=== PATIENT | female | born 1970 | race Caucasian/White ===

== ENCOUNTER 2017-03-23 08:37 | Outpatient (RCR) | payer MEDICARE, SELFPAY ==
[2017-03-23 09:32] VITALS: BP 137/86; PULSE 84; RESP 20; TEMP 36.1
--- NOTE | 2017-03-23 09:40 | WC ---
lower backsmall abrasion and scabbed area . pt states will start using hydrogel when arrives per home health nurse ordered
--- NOTE | 2017-03-23 10:33 | PCM.WC.HP ---
(1) Non-healing surgical wound Status: Acute Current Visit: Yes Code(s): T81.89XA - Other complications of procedures, not elsewhere classified, initial encounter Comment: Left Jaw (2) Cellulitis and abscess of neck Status: Chronic Current Visit: No Code(s): L03.221 - Cellulitis of neck; L02.11 - Cutaneous abscess of neck (3) Bahman's angina Status: Chronic Current Visit: No Code(s): K12.2 - Cellulitis and abscess of mouth (4) Tobacco abuse Status: Acute Current Visit: Yes Code(s): Z72.0 - Tobacco use History of Present Illness Date of Service: 03/25/17 Chief Complaint: Non healing Left Jaw Surgical Wound. History of Wound: Ms. Marsh is a 46yo with no significant past medical history who was recently hospitalized due to worsening dental abscess and Bahman's angina. She is status post surgical debridement. During the hospital stay she was on Zosyn and on discharge from the hospital was started on Augmentin. She has been compliant with her medication. She has home health care who comes around to help with her dressing and has been doing wet-to-dry dressing over the wound. Per patient, they have noted some yellowish to greenish drainage ( the amount of which has been gradually reducing) from the site but she denies chills, fever, headaches or otherwise feeling of unwell. In her opinion, the wound size is reducing. Past Medical History Past Medical History: Chronic Problems Cellulitis and abscess of neck (Chronic) Bahman's angina (Chronic) Bipolar disorder (Chronic) Chronic back pain (Chronic) Anxiety (Chronic) Surgical History: cholecystectomy Allergies/Adverse Reactions: Allergies prednisone Adverse Reaction (Verified 03/04/17 09:23) Other Sulfa (Sulfonamide Antibiotics) Adverse Reaction (Verified 03/04/17 09:23) Rash Home Medications: Ambulatory Orders Medication Instructions Recorded Citalopram [Celexa] 40 mg PO DAILY 08/28/16 Esomeprazole Magnesium 40 mg PO DAILY 08/28/16 Aripiprazole [Abilify] 30 mg PO DAILY 12/09/16 Trazodone HCl [Desyrel] 100 - 200 mg PO QHS PRN PRN 03/07/17 Amox/Clavulanate Tablet [Augmentin 875 mg PO Q12H #1 tablet 03/14/17 Tablet] - Family History Maternal No pertinent history Paternal No pertinent history Smoking Status: Heavy Smoker (>10/day) Review of Systems Constitutional: Denies: Chills, Fever, Malaise Eyes: Denies: Blurred vision, Double vision HEENT: Denies: Difficulty Hearing, Head Aches Cardiovascular: Denies: Chest Pain, Claudication, Chest Pressure, Orthopnea Respiratory: Denies: Cough, Hemoptysis, Pleuritic Pain, Shortness of breath upon exertion Gastrointestinal: Denies: Abdominal Pain, Hematemesis Genitourinary: Denies: Frequency, Incontinence - Physical Exam Vital Signs Temp Pulse Resp BP 97 F L 84 20 H 137/86 H 03/23/17 09:32 03/23/17 09:32 03/23/17 09:32 03/23/17 09:32 General: Alert, Oriented x3, Cooperative HEENT: - - Left sided facial wound noted around the jaw line. Oral: Moist Mucosa Neck: Supple, No JVD Lungs: Clear to auscultation, Normal air movement Cardiovascular: Regular rate, Regular Rhythm, Normal S1, Normal S2 Abdomen: Soft, Non Tender Extremities: No cyanosis, No edema Wound Measurements and Assessment - Nurse 1 - General Ulcer Measurement Start: 03/23/17 08:43 Freq: Status: Active Protocol: Activity Type Activity Date Activity User E-Sign Co-Sign Detail Recorded Client Recorded Date Recorded By Document 03/23/17 09:32 RB [id number] 03/23/17 09:41 RB 03/23/17 09:32 Wound Center Nurse 1 [Ulcer Assessment Protocol: BRAEDEN.WD.LOC] #1 Left [place] -Combined with other wound No -Current Size (cm) - Length 2.8 -Current Size (cm) - Width 1 -Current Size (cm) - Depth 0.8 -Total Square Cm 2.8 -Photo Taken Yes -Tunneling No -Undermining/Tunneling No -Circular Undermining No -Classification - Thickness Full Thickness without Exposed Support Structure -Exudate Amt Small (1-33%) -Exudate Type Serosanguineous -Wound Margin Thickened & Rolled Under -Granulation Amt Large (67-100%) -Granulation Quality [place] Red -Necrosis Amt Small (1-33%) -Necrotic Tissue Type Adherent Slough -Structure Exposed N/A -Texture (Radha-wound Skin Appearance) Assessed -Moisture (Radha-wound Skin Appearance Assessed ) -Color (Radha-wound Skin Appearance) Assessed -Temperature (Radha-wound Skin No Abnormality Appearance) (Pt Warm) -Tenderness on Palpation (Radha-wound No Skin Appearance) -Ulcer Cleansing Rinsed/ Irrigated with Saline -Foul Odor after Cleansing No -Anesthetic Used 4% Lidocaine Solution 03/23/17 09:40 Wound Center by Leeanna Henriquez lower backsmall abrasion and scabbed area . pt states will start using hydrogel when arrives per home health nurse ordered Initialized on 03/23/17 09:40 - END OF NOTE WC - Nurse 2 - General Ulcer CM Notes Start: 03/23/17 08:43 Freq: Status: Active Protocol: Activity Type Activity Date Activity User E-Sign Co-Sign Detail Recorded Client Recorded Date Recorded By Document 03/23/17 10:19 DV [id number] 03/23/17 10:27 DV 03/23/17 10:19 Wound Center Nurse 2 [Procedure/Treatment] -Time 10:19 -Correct Patient Yes -Correct Side, Site, Position Yes -Correct Procedure Yes -Procedure Performed Yes -Type of Procedure Debridement -Clinical Debridement Subcutaneous -Post Debridement Size (cm) - Length 0.8 -Post Debridement Size (cm) - Width 2.8 -Post Debridement Size (cm) - Depth 0.8 -Total Square Cm 2.24 -Wound/Ulcer Outcome Not Healed -Ulcer Cleansing Rinsed/ Irrigated with Saline -Foul Odor after Cleansing No -Bioengineered Tissue No -Cetacaine [place] No -Bleeding Controlled with Pressure -Treatment Response Procedure Tolerated Well [See Physician Procedure note for Specifics] Pain Scale: 0-10 Numeric [Pain] -Is Patient Pain Free? Yes Musculoskeletal: No Muscle Wasting Lymphatic: No Cervical, Supraclavicular, or Inguinal Adenopathy Neurological: Cranial nerves II-XII grossly intact Psych/Mental Status: Normal Affect, Alert and oriented to time, place, person, mood and affect Debridement Note Post-Debridement Measurements/Treatment WC - Nurse 2 - General Ulcer CM Notes Start: 03/23/17 08:43 Freq: Status: Active Protocol: Activity Type Activity Date Activity User E-Sign Co-Sign Detail Recorded Client Recorded Date Recorded By Document 03/23/17 10:19 DV [id number] 03/23/17 10:27 DV 03/23/17 10:19 Wound Center Nurse 2 #1 Left [place] -Time 10:19 -Correct Patient Yes -Correct Side, Site, Position Yes -Correct Procedure Yes -Procedure Performed Yes -Type of Procedure Debridement -Clinical Debridement Subcutaneous -Post Debridement Size (cm) - Length 0.8 -Post Debridement Size (cm) - Width 2.8 -Post Debridement Size (cm) - Depth 0.8 -Total Square Cm 2.24 -Wound/Ulcer Outcome Not Healed -Ulcer Cleansing Rinsed/ Irrigated with Saline -Foul Odor after Cleansing No -Bioengineered Tissue No -Cetacaine [place] No -Bleeding Controlled with Pressure -Treatment Response Procedure Tolerated Well Pain Scale: 0-10 Numeric Is Patient Pain Free? Yes Type of Debridement: Excisional debridement Anesthesia Used: 4% Lidocaine Solution Depth: Down to and including healthy tissue, in the subcutaneous layer Percentage of wound debrided: 100 Instrument Used: 5mm curette Tissue Removed: Biofilm,Slough Amount of bleeding with debridement: Mild Bleeding Controlled with: Pressure Patient tolerated procedure well Assessment/Plan Active Problems Non-healing surgical wound (Acute) Left Jaw Tobacco abuse (Acute) Assessment: Left-sided dental abscess and Bahman's angina status post surgical debridement. Slow surgical wound healing. Tobacco abuse Plan: Status post hospital discharge she has been applying wet-to-dry dressing to the wound at home with the help of home health care. However she states that they need help with wound healing and so she was referred here. Labs done in hospital reviewed , grossly unremarkable save for anemia and occasional hyperglycemia. Subsequent blood sugar checks were within normal incuding on the day of discharge. The wound does look generally healthy with moderate biofilm and slough. I debrided the wound today using a 5 mm curette. The procedure was well-tolerated. She has been on Augmentin since discharge from the hospital and has a 10 day course. I will increase this to a 14 day because of the persistent yellowish - greenish drainage she has noted. She however denies any increased tenderness around the site. Apply Aquacel silver daily. Increase protein diet and supplements. I did spend some time counseling patient on the benefits of smoking cessation. She is scheduled to follow-up with her primary care physician on Tuesday and will discuss her options. Follow-up in 1 week. This note was generated with WooWhoation software. It may contain incorrect words, spelling, and punctuation that were not noted in checking the note before signing.
== END 2017-04-17 23:59 ==
LOC: WC 08:37
PROVIDERS: Family Provider Family Medicine; PCP Family Medicine; Visit Provider Internal Medicine
DX: K12.2 Cellulitis and abscess of mouth (principal); F31.9 Bipolar disorder, unspecified; F41.9 Anxiety disorder, unspecified; Z79.899 Other long term (current) drug therapy; T81.89XA Other complications of procedures, not elsewhere classified, initial encounter; Z72.0 Tobacco use
CPT/HCPCS: 11042; 99213; G0463

== ENCOUNTER 2017-04-20 10:25 | Outpatient (RCR) | payer MEDICARE, SELFPAY ==
[2017-04-18 01:33] VITALS: BP 137/86; PULSE 84; RESP 20; TEMP 36.1
== END 2017-05-18 23:59 ==
LOC: WC 10:25
PROVIDERS: Family Provider Family Medicine; PCP Family Medicine; Visit Provider Internal Medicine
DX: Z09 Encounter for follow-up examination after completed treatment for conditions other than malignant neoplasm (principal)

== ENCOUNTER 2017-09-23 08:55 | Emergency (ER) | payer MEDICARE, SELFPAY ==
--- NOTE | 2017-09-23 08:55 | DT_ITS ---
This patient was seen during an EMR downtime September 19, 2017 - September 26, 2017. This patient may have a combination of paper and electronic documentation or all paper documentation. All documentation is viewable within the e-chart portion of [facility] for each patient visit.
== END 2017-09-23 09:35 | disposition home or self-care (01) ==
LOC: ED 13:04
PROVIDERS: Emergency Provider Emergency Medicine; Family Provider Family Medicine; PCP Family Medicine
DX: M54.5 Low back pain (principal); Z79.899 Other long term (current) drug therapy; Z72.0 Tobacco use
CPT/HCPCS: 99283

== ENCOUNTER 2018-08-12 22:54 | Emergency (ER) | payer MEDICARE, SELFPAY ==
[2018-08-12 22:54] VITALS: BP 162/102; PULSE 130; RESP 20; TEMP 36.7; O2SAT 95; BMI 47.8
[2018-08-12 23:05] VITALS: RESP 18
--- NOTE | 2018-08-12 23:14 | ED.VIS.GEN ---
History of Present Illness Chief Complaint: Suicidal Informant: Patient Narrative: Patient states she has had suicidal thoughts and thought about overdosing on sleeping pills tonight. She told her significant other who called 911 who brought her in. She has overdosed in 2017 in the past. She states she has a history of depression. She is seen at the counseling center. She states there is no specific new reasons that forced her to want to hurt herself. She did not take anything. Current severity is severe. She stated her last methamphetamine usage was a week ago. She also has not smoked marijuana for 2 weeks but was using those regularly prior - Past Medical History (1) Acute respiratory failure Status: Acute (2) Non-healing surgical wound Status: Acute Comment: Left Jaw (3) Tobacco abuse Status: Acute (4) Upper airway obstruction Status: Acute (5) Anxiety Status: Chronic (6) Bipolar disorder Status: Chronic (7) Cellulitis and abscess of neck Status: Chronic (8) Chronic back pain Status: Chronic (9) Bahman's angina Status: Chronic Past Medical History - Allergies and Home Meds Allergies/Adverse Reactions: Allergies prednisone Adverse Reaction (Verified 03/04/17 09:23) Other Sulfa (Sulfonamide Antibiotics) Adverse Reaction (Verified 03/04/17 09:23) Rash Primary Care Physician: Eyad Robles MD [Primary Care Provider] - Prior records reviewed: Yes Surgical History: cholecystectomy Lives: Spouse/ Significant Other Smoking Status: Unknown if ever smoked Alcohol: Rare Drugs: Marijuana, - - Amphetamine's - Family History Maternal Family History: Reports: No pertinent history Paternal Family History: Reports: No pertinent history Review of Systems General: Denies: Chills, Fever, Sweats Eyes: Denies: Visual changes - bilaterally, Diplopia ENT: Denies: Rhinorrhea, Sore throat Cardiovascular: Denies: Chest pain, Palpitations Respiratory: Denies: Dyspnea, Cough, Dyspnea on exertion Gastrointestinal: Denies: Abdominal pain, Nausea, Vomiting, Diarrhea, Melena, Hematochezia Genitourinary: Denies: Dysuria, Hematuria, Frequency Musculoskeletal: Denies: Back pain, Extremity Pain Skin: Denies: Rash, Wounds Neurological: Denies: Headache, Weakness, Numbness Psych: Reports: Depression, Suicidal ideations Physical Exam Vital Signs/Narrative: Vital Signs Temp Pulse Resp BP Pulse Ox 04/27/19 22:54 98.0 F 130 H 20 H 162/102 H 95 General: Well nourished, Well developed, No Acute Distress Head: Normocephalic, Atraumatic Eyes: Perrl, EOMI ENT: Moist mucous membranes, No rhinorrhea Neck: Supple, Nontender Cardiovascular: Regular rate, Regular rhythm, No murmurs Respiratory: No distress, CTA bilaterally, Chest nontender Abdomen: Soft, Nontender, Nondistended, Normal bowel sounds Back: Nontender, Normal Inspection Extremities: Nontender, No edema Skin: Normal color, No rash Neurological: Alert, Oriented x3, Cranial nerves II-XII grossly intact, Normal Strength, Normal Sensation Psychological: Normal affect, Normal Mood Diagnostic/Tx/Re-eval - Medical Decision Making Lab work obtained patient seen by crisis. Patient positive for methamphetamines and marijuana. Low potassium noted. Replaced in the department. Patient will be admitted to [facility] ED Disposition - Plan for ED Patient: Diagnosis: Suicidal ideation Referrals: Eyad Robles MD [Primary Care Provider] -
[2018-08-12 23:38] LABS: Absolute Lymphocyte Count 2.02 X10^3/ul (0.83-4.51); Absolute Neutrophil Count 8.1 X10^3/uL (2.0-7.7); Basophil# 0.04 X10^3/uL; Basophil% 0.4 % (0-1); Eosinophil# 0.04 X10^3/uL; Eosinophils% 0.4 % (0-5); Hematocrit 51.4 % (37-47); Hemoglobin 17.8 g/dl (12.0-15.0); Lymphocyte # 2.02 X10^3/ul (4.0); Lymphocyte % 18.5 % (19-41); Mean Corp Hgb Conc 34.6 g/gl (32-36); Mean Corpuscular Hgb 33.2 pg (27.0-32.0); Mean Corpuscular Volume 95.9 fL (81-99); Mean Platelet Vol. 9.8 fl (6.2-12.0); Monocyte% 6.4 % (0-10); Neutrophil # 8.09 X10^3/uL (2.7-7.7); Neutrophil % 74.1 % (47-70); Platelet Count 292 K/mm3 (150-450); RBC Distribution Width CV 13.2 % (11.6-14.6); RBC Distribution Width SD 46.3 fl (35.1-43.9); Red Blood Count 5.36 M/mm3 (4.2-5.4); White Blood Count 10.9 K/mm3 (4.4-11.0)
[2018-08-12 23:45] LABS: POSITIVE COUNT NO; POSITIVE DIFFERENTIAL NO; POSITIVE MORPHOLOGY NO
[2018-08-12 23:47] LABS: Anion Gap 10 (5-15); BUN 9 mg/dL (7-18); BUN/Creat Ratio 8.1 RATIO (10-20); Calcium,Total 9.3 mg/dL (8.5-10.1); Chloride 108 mmol/L (98-107); Creatinine, Serum 1.11 mg/dL (0.55-1.02); EST Glomerular Filtration Rate 56 mL/min (>60); Est Glom Filt Rate - Afr Amer 68 mL/min (>60); Estimated Creatinine Clearance 49.55 ml/min; Glucose 198 mg/dL (74-106); Potassium 3.3 mmol/L (3.5-5.1); Sodium Level 140 mmol/L (136-145)
[2018-08-12 23:59] LABS: Internal QC Validated? YES +Cl - CLEAR BKGD; Pregnancy, Serum, hCG Quali. NEGATIVE Negative
[2018-08-13] VITALS (8 sets, daily range): BP systolic 155–160; BP diastolic 87–102; PULSE 79–96; RESP 15–20; TEMP 36.8; O2SAT 96–99
--- NOTE | 2018-08-13 00:01 | NURSING ---
CALLED CRISIS AT [phone] TALKED TO MAYELIN
[2018-08-13 00:22] LABS: Alcohol, Blood (Medical)-Serum < 3.0 mg/dL
[2018-08-13 01:02] LABS: Amphetamine Urine VISTA POSITIVE (<1000 ng/mL); Barbiturate Urine VISTA NEGATIVE (< 200 ng/mL); Benzodiazepine Urine VISTA NEGATIVE (< 200 ng/mL); Cocaine Urine VISTA NEGATIVE (< 300 ng/mL); Ecstacy Urine VISTA NEGATIVE (< 500 ng/mL); Methadone Urine VISTA NEGATIVE (< 300 ng/mL); PCP Urine VISTA NEGATIVE (< 25 ng/mL); THC Urine VISTA POSITIVE (< 50 ng/mL); Vista UDS pH Range 5
--- NOTE | 2018-08-13 04:52 | NURSING ---
ACCEPTED TO [facility] DUAL DIAGNOSIS UNIT [phone]
--- NOTE | 2018-08-13 04:59 | NURSING ---
[facility] REFUSED TRANSPORT [facility] ACCEPTED FOR 7:30A [facility] [employer]
--- NOTE | 2018-08-13 06:54 | ED.RN ---
MOTHER, TYRON, UPDATED WITH POC/ADMISSION. TYRON [phone]
== END 2018-08-13 07:46 | disposition short-term general hospital (02) ==
PROVIDERS: Emergency Provider Emergency Medicine; Family Provider Family Medicine; PCP Family Medicine
DX: R45.851 Suicidal ideations (principal); F12.90 Cannabis use, unspecified, uncomplicated; F15.90 Other stimulant use, unspecified, uncomplicated
CPT/HCPCS: 36415; 80048; 80307; 80320; 84703; 85025; 99285; G0480

== ENCOUNTER 2018-09-12 08:31 | Emergency (ER) | payer MEDICARE, SELFPAY ==
[2018-09-12 08:31] VITALS: BP 162/96; PULSE 94; RESP 18; TEMP 36.6; O2SAT 96; BMI 45.7
--- NOTE | 2018-09-12 08:45 | RAD_ITS ---
STUDY: X-RAY CHEST REASON FOR EXAM: Female, 48 years old. 3 day history of shortness of breath and cough. TECHNIQUE: PA and lateral views of the chest. COMPARISON: Comparison is made with prior study dated March 08, 2017. FINDINGS: The lungs are clear and expanded. There is no demonstrated pleural abnormality. Normal size heart. Normal mediastinum and rogerio. Normal visualized pulmonary arteries. Normal visualized aortic arch and descending thoracic aorta. There are degenerative changes of the visualized thoracic spine. Normal visualized ribs, clavicles, and shoulders. There is no demonstrated abnormality of the visualized soft tissue structures of the upper abdomen. RAD/Chest PA and Lateral IMPRESSION: Normal x-ray examination of the chest. Electronically Signed: Jaya Johnson, at 9:15 EDT , Service support ,
--- NOTE | 2018-09-12 08:46 | ED.VISSUMM ---
- ER Visit Summary Date of Service: 09/12/18 Chief Complaint: Shortness of breath History of Present Illness: The patient is a 48 F who states that about 1 week ago she came ill with a stomach illness noting vomiting and diarrhea. That resolved. She also developed nasal congestion cough sneezing and shortness of breath. That has persisted. She notes dyspnea on exertion with stair use. She does note some sputum production. No recent fevers. She is a smoker at 1 pack/day. She is currently staying at [facility] and notes that several people have contracted pneumonia recently. She is concerned she may have pneumonia. She denies any history of asthma or COPD. Physical Examination: Afebrile vital signs are stable Gen: Well-nourished well-developed Head: Normocephalic atraumatic Eyes: Perrl EOMI ENT: TMs clear nasal congestion moist mucous membranes Neck: Supple no lymphadenopathy no JVD nontender CVS: Regular rate rhythm no murmurs normal S1-S2 Respiratory: No distress bilateral rhonchi at the bases with expiratory wheeze chest nontender Abdomen: Soft nontender nondistended normal bowel sounds no masses Back: Nontender Extremity: Nontender no edema Skin: Normal color no rash Neuro: alert orientated ?3 CN II-XII intact normal strength sensation Psych: Normal affect normal mood Test Results: Chest x-ray was obtained. This was negative for infiltrate. Emergency Department Course and Treatment: She received a DuoNeb. Lung sounds are improved. Patient will be started on albuterol MDI, Medrol because she cannot tolerate prednisone with her bipolar disorder. She was advised that Medrol can cause similar occurrences but she wishes to try it. Also write for azithromycin. Impression: 1. Acute bronchitis with bronchospasm This note was generated with ZipZap dictation software. It may contain incorrect words, spelling, and punctuation that were not noted in review of the chart prior to signing ED Disposition - Plan for ED Patient: Disposition: Home or Assisted Living Instructions: What Is Acute Bronchitis?, ED Wheezing Prescriptions: Albuterol Inhaler [Ventolin Hfa] 2 puff INHALATION Q4H PRN PRN #1 inhaler PRN Reason: Wheezing Azithromycin [Zithromax Z-Mauro] 250 mg PO UD #1 box MethylPREDNISolone DosePak [Medrol DosePak] 4 mg PO UD #1 box Referrals: Eyad Robles MD [Primary Care Provider] - 1 Week if not improving
[2018-09-12 08:50] VITALS: PULSE 98; RESP 18
[2018-09-12] MEDS: Ipratropium/Albuterol Sulfate 3 ML AMPUL.NEB INHALATION (08:50)
[2018-09-12 08:54] VITALS: BP 162/96; PULSE 94; RESP 20; TEMP 36.6; O2SAT 96; O2SAT 97
[2018-09-12 09:39] VITALS: BP 155/88; PULSE 90; O2SAT 96
== END 2018-09-12 09:54 | disposition home or self-care (01) ==
PROVIDERS: Emergency Provider Emergency Medicine; Family Provider Family Medicine; PCP Family Medicine
DX: J20.9 Acute bronchitis, unspecified (principal); F31.9 Bipolar disorder, unspecified; F17.200 Nicotine dependence, unspecified, uncomplicated; E66.9 Obesity, unspecified; Z68.42 Body mass index [BMI] 45.0-49.9, adult; Z79.899 Other long term (current) drug therapy
CPT/HCPCS: 71046; 94640; 99282

== ENCOUNTER 2018-11-01 10:26 | Emergency (ER) | payer MEDICARE, SELFPAY ==
[2018-11-01 10:27] VITALS: BP 160/101; PULSE 106; RESP 18; TEMP 36.8; O2SAT 95; BMI 50.5
--- NOTE | 2018-11-01 10:56 | ED.DCSUM_ITS ---
- ER Visit Summary Date of Service: 11/01/18 Chief Complaint: Back injury History of Present Illness: The patient is a 48 F who states she has a history of degenerative disc disease and sciatica. Today approximate 3 hours before arrival in the emergency room she is carrying a TV tray trying to go through a door frame when she twisted and injured her left low back. She states that it does not radiate down her legs. No bladder or bowel dysfunction. No fevers. No rashes. No IV drug use history. She denies any paresthesias of the legs. She denies any loss of muscle strength of the legs. She is had no home treatment. Physical Examination: Febrile vital signs are stable BMI 50.5 Patient is tenderness to palpation over the lateral lumbar paraspinal musculature. There is no redness or fluctuance the skin to suggest an abscess. No vesicular lesions. Worse with movement. Normal lower external exam Emergency Department Course and Treatment: Both on history and physical exam is most likely a muscular strain. She will use Flexeril and naproxen. Follow-up with her primary care if not improving Impression: 1. Left lumbar muscle strain This note was generated with Marinelayer dictation software. It may contain incorrect words, spelling, and punctuation that were not noted in review of the chart prior to signing ED Disposition - Plan for ED Patient: Disposition: Home or Assisted Living Instructions: Back Sprain/Strain Prescriptions: cycloBENZAPRine HCl [Flexeril] 10 mg PO TID 5 Days #15 tab Prescription Printed Naproxen [Naprosyn] 500 mg PO BID #20 tab Prescription Printed Referrals: Eyad Robles MD [Primary Care Provider] - 1 Week if not improving
== END 2018-11-01 11:19 | disposition home or self-care (01) ==
LOC: ED 11:17
PROVIDERS: Emergency Provider Emergency Medicine; Family Provider Family Medicine; PCP Family Medicine
DX: S39.012A Strain of muscle, fascia and tendon of lower back, initial encounter (principal); X50.1XXA Overexertion from prolonged static or awkward postures, initial encounter; Y93.9 Activity, unspecified; Y92.9 Unspecified place or not applicable; E66.9 Obesity, unspecified; Z68.43 Body mass index [BMI] 50.0-59.9, adult; F31.9 Bipolar disorder, unspecified; Z79.899 Other long term (current) drug therapy; Z72.0 Tobacco use
CPT/HCPCS: 99282

== ENCOUNTER 2020-07-02 09:23 | Emergency (ER) | payer MEDICARE, MEDICAID, SELFPAY ==
[2020-07-02 09:24] VITALS: BP 160/113; PULSE 94; RESP 18; TEMP 37; O2SAT 96; BMI 53.7
[2020-07-02] MEDS: HYDROcodone Bitartrate/Apap 5/325 Tablet PO (09:50)
[2020-07-02] MEDS: Naproxen 500 MG Tablet PO (09:50)
--- NOTE | 2020-07-02 09:55 | RAD_ITS ---
STUDY: X-RAY - RIGHT ANKLE REASON FOR EXAM: Female, 49 years old. Injury/Pain TECHNIQUE: 3 view(s) of the ankle. COMPARISON: None. FINDINGS: Normal visualized distal tibia and fibula. Avulsion fracture of the lateral malleolus. Normal tibiotalar articulation and ankle mortise. Normal visualized talus and calcaneus. The visualized subtalar, talonavicular, calcaneocuboid and tarsal articulations are normal. Diffuse soft tissue swelling worse on the lateral aspect of the ankle. RAD/Ankle min 3 Views IMPRESSION: Tiny avulsion fracture of the lateral malleolus with diffuse overlying soft tissue swelling. Electronically Signed: Jaya Johnson MD at 10:39 EDT , Service support ,
--- NOTE | 2020-07-02 10:17 | ED.VISSUMM ---
- ER Visit Summary Date of Service: 07/02/20 Chief Complaint: Right ankle pain History of Present Illness: The patient is a [address] Eyad Robles. She reports that yesterday she had a forced inversion injury of her right ankle when she stepped in a hole. She denies any other injuries. No blow to the head or loss of consciousness. She not on anticoagulants. Patient planes of a sharp pain is 7 of 10 with walking and 6 out of 10 at rest after Tylenol. She denies any numbness or weakness. Physical Examination: Vitals: Stable. Afebrile. Neck: No vertebral tenderness. Full ROM without difficulty. Cleared by NEXUS criteria. Back: No vertebral tenderness. General: A&O x 3. NAD. Cardiovascular exam: Regular rate and rhythm, no murmur, rub or gallop. Respiratory exam: Chest nontender. No crepitus. Clear to auscultation bilaterally. No wheezes or stridor. Abdominal exam: Soft, nontender, nondistended, normal bowel sounds. No pain in RUQ or LUQ specifically. No peritoneal signs. Extremity: Moderate tenderness palpation over the lateral malleolus with soft tissue swelling. There is no pain over the medial malleolus, base of the fifth metatarsal, or proximal fibula. She is neurovascular intact distal to this. Test Results: Right ankle x-ray shows an avulsion fracture of the lateral malleolus. Emergency Department Course and Treatment: Patient was treated naproxen and [place]. She was placed in a walking boot. Treatment Plan: Patient be discharged instructions to follow-up with Dr. Miranda in 1 week for another exam. She is given a prescription for [place]. Return to the emergency department for any worsening symptoms. Disposition: To home in improved and stable condition. Impression: 1. Avulsion fracture right lateral malleolus. This note was generated with BidThatProject dictation software. It may contain incorrect words, spelling, and punctuation that were not noted in review of the chart prior to signing ED Disposition - Plan for ED Patient: Instructions: ED Ankle Fracture, Distal Fibula Prescriptions: Hydrocodone Bitart/Apap 5-325 [[place] 5MG-325MG] 1 tablet PO Q6H PRN PRN 3 Days #10 tablet PRN Reason: Pain Referrals: Lisseth Miranda DPM [STAFF PHYSICIAN] - 1 Week
[2020-07-02 11:22] VITALS: BP 138/67; PULSE 71; RESP 15; O2SAT 98
== END 2020-07-02 11:23 | disposition home or self-care (01) ==
LOC: ED 10:29
PROVIDERS: Emergency Provider Emergency Medicine; PCP Family Medicine
DX: S82.61XA Displaced fracture of lateral malleolus of right fibula, initial encounter for closed fracture (principal); F17.200 Nicotine dependence, unspecified, uncomplicated; X58.XXXA Exposure to other specified factors, initial encounter
CPT/HCPCS: 73610; 99285

== ENCOUNTER 2021-03-13 12:43 | Emergency (ER) | payer MEDICARE, MEDICAID, SELFPAY ==
[2021-03-13 12:44] VITALS: BP 217/82; PULSE 90; RESP 18; TEMP 36.6; O2SAT 99; BMI 54.5
[2021-03-13 15:45] VITALS: PULSE 86; RESP 18; O2SAT 94
--- NOTE | 2021-03-13 15:47 | ED.VIS.LOWEX ---
HPI History of Present Illness Chief Complaint: Lower Extremity Injury Narrative Narrative: 50-year-old female presenting with right knee pain. She states that it was a few nights ago that she slept in an awkward position and woke up with her knee hurting on the lateral aspect. She denies any direct trauma. Patient states that after this she had one episode where she kind of stumbled and twisted her knee a little bit. She did not hear any pops. She is been ambulatory since then. She denies paresthesias but states the pain sometimes radiates into the distal leg. No significant swelling or erythema. She has been using ibuprofen and ice at home. She is been keeping it elevated. [facility] Medical History Acute respiratory failure Anxiety Bipolar disorder Cellulitis and abscess of neck Chronic back pain Bahman's angina Non-healing surgical wound Tobacco abuse Upper airway obstruction Home Medications esomeprazole magnesium 40 mg PO DAILY 08/28/16 [History Last Taken Unknown] pregabalin 50 mg PO TID 08/12/18 [History Last Taken Unknown] valacyclovir 1,000 mg PO DAILY 08/12/18 [History Last Taken Unknown] albuterol sulfate 2 puff INHALATION Q4H PRN PRN #1 inhaler 09/12/18 [Rx Last Taken Unknown] aripiprazole lauroxil 882 mg IM QMONTH 09/12/18 [History Last Taken Unknown] naproxen 500 mg PO BID #20 tab 11/01/18 [Rx Last Taken Unknown] umeclidinium 62.5 mcg-vilanterol 25 mcg/actuation powdr for inhalation 1 inh INHALATION Q24H #1 device 09/13/19 [Rx Last Taken Unknown] Bupropion Hcl [Bupropion Hcl Sr] 150 mg PO DAILY 07/02/20 [History Last Taken Unknown] cholecalciferol (vitamin D3) 5,000 unit PO DAILY 07/02/20 [History Last Taken Unknown] gabapentin 300 mg PO TIDCM 07/02/20 [History Last Taken Unknown] Allergy/AdvReac Type Severity Reaction Status Date / Time prednisone AdvReac Other Verified 03/13/21 12:46 Sulfa (Sulfonamide AdvReac Rash Verified 03/13/21 12:46 Antibiotics) Surgical History History of adenoidectomy History of cholecystectomy Social History Smoking Status: Current every day smoker tobacco type: cigarettes Tobacco: How many years used: 30 second hand exposure: Yes alcohol intake: current alcohol intake frequency: holidays/special occasions only substance use type: does not use ROS ROS ED Constitutional Constitutional ED: Denies fever(s) or sweats Eyes Eyes: Denies blurry vision or change in vision ENT ENT ED: Denies rhinorrhea Cardiovascular Cardiovascular: Denies chest pain or palpitations Respiratory/Chest Respiratory/Chest: Denies cough, dyspnea or sputum Gastrointestinal Gastrointestinal: Denies abdominal pain, nausea or vomiting Genitourinary Genitourinary ED: Denies dysuria, hematuria or urinary frequency Musculoskeletal Musculoskeletal: Reports other Details: Right knee pain ; Denies myalgias Integumentary Denies abscess or rash Neurologic Neurologic: Denies headache(s) or paresthesias Psychiatric Psychiatric: Denies anxiety or depression EXAM Physical Exam Const Vital Signs: 03/13/21 12:44 03/13/21 15:45 Temperature 97.9 F Temperature Source Temporal Pulse Rate 90 86 Respiratory Rate 18 18 Blood Pressure 217/82 H Blood Pressure Mean 127 Pulse Ox 99 94 Oxygen Delivery Method Room Air Room Air Positive well nourished General Appearance ED: NAD HEENT normocephalic and atraumatic Eyes PERRL Resp normal respiratory effort and clear to auscultation bilaterally Cardio regular rate and regular rhythm Extremity Extremity Narrative: Right knee tender to palpation on the right lateral joint line. No deformity. Full range of motion of the right knee. No ligament laxity. No ecchymosis or abrasions. No significant edema. Neuro oriented x3 Sensorium / Orientation: alert Psych mental status grossly normal MDM MDM MDM Narrative Medical decision making narrative: -year-old female presenting with right knee pain. She states she twisted this. Patient was offered a shot of Toradol and I did order an x-ray of her right knee. At this time the patient states that she does not want an x-ray of her right knee and feels like she can take care of this at home. I recommended that she add compression to her treatment plan. She will get a compression stocking at home. She was offered an Bhavin wrap but declines this as well. Impression: 1 right knee strain Discharge Plan Triage Chief Complaint: Lower Extremity Injury ED Provider: Guerrero Leroy Dx/Rx/DC Orders Instructions: ED Knee Sprain Prescriptions: No Action esomeprazole magnesium 40 MG capsule,delayed release(DR/EC) 40 mg PO DAILY RF: 0 valacyclovir 1,000 MG tablet 1,000 mg PO DAILY RF: 0 pregabalin 50 MG capsule 50 mg PO TID RF: 0 aripiprazole lauroxil 882 MG/3.2 ML suspension,extended rel syring 882 mg IM QMONTH RF: 0 albuterol sulfate 1 INHALER inhaler 2 puff inhalation Q4H PRN PRN (Reason: Wheezing) Qty: 1 RF: 0 naproxen 500 MG tablet 500 mg PO BID Qty: 20 RF: 0 gabapentin 300 MG capsule 300 mg PO TIDCM RF: 0 cholecalciferol (vitamin D3) 1,000 UNIT tablet 5,000 unit PO DAILY RF: 0 Bupropion Hcl [Bupropion Hcl Sr] 150 MG Tab.Sr.12h 150 mg PO DAILY RF: 0 Anoro Ellipta 62.5-25 mcg/actuation blister with device 1 inh inhalation Q24H Qty: 1 RF: 3 Primary Care Provider: Eyad Robles Referrals: Eyad Robles MD [Primary Care Provider] - Disposition Disposition: Home, Self Care
== END 2021-03-13 16:08 | disposition home or self-care (01) ==
PROVIDERS: Emergency Provider Student in an Organized Health Care Education/Training Program; PCP Family Medicine
DX: S86.911A Strain of unspecified muscle(s) and tendon(s) at lower leg level, right leg, initial encounter (principal); X50.1XXA Overexertion from prolonged static or awkward postures, initial encounter; Y93.9 Activity, unspecified; Y92.9 Unspecified place or not applicable; Y99.8 Other external cause status; F31.9 Bipolar disorder, unspecified; F41.9 Anxiety disorder, unspecified; F17.210 Nicotine dependence, cigarettes, uncomplicated; Z79.899 Other long term (current) drug therapy
CPT/HCPCS: 99282

== ENCOUNTER 2021-04-16 11:20 | Emergency (ER) | payer MEDICARE, MEDICAID, SELFPAY ==
[2021-04-16 11:20] VITALS: BP 152/80; PULSE 103; RESP 24; TEMP 37.1; O2SAT 100; BMI 52.0
--- NOTE | 2021-04-16 11:37 | EKG12_ITS ---
Test Reason : Blood Pressure : / mmHG Vent. Rate : 092 BPM Atrial Rate : 092 BPM P-R Int : 114 ms QRS Dur : 098 ms QT Int : 340 ms P-R-T Axes : 036 -43 110 degrees QTc Int : 420 ms Normal sinus rhythm Left axis deviation Left ventricular hypertrophy with repolarization abnormality Abnormal ECG Confirmed by CHICHI DELA CRUZ, VEL ([id number]), market editor ERASMO LOPEZ ([id number]) on 04/22/2021 12:04:29 PM Referred By: EVELIA Confirmed By:VEL CADET MD
--- NOTE | 2021-04-16 11:37 | RAD_ITS ---
STUDY: X-RAY CHEST REASON FOR EXAM: Female, 50 years old. dyspnea TECHNIQUE: Single AP portable view of the chest. COMPARISON: 09/12/2018 FINDINGS: The lungs are clear and expanded. There is no demonstrated pleural abnormality. Normal size heart. Normal mediastinum and rogerio. Normal visualized pulmonary arteries. Normal visualized aortic arch and descending thoracic aorta. Normal visualized thoracic spine. Normal visualized ribs, clavicles, and shoulders. There is no demonstrated abnormality of the visualized soft tissue structures of the upper abdomen. RAD/Chest 1 View (Portable) IMPRESSION: Normal x-ray examination of the chest. Electronically Signed: Deonte Thurman MD at 12:20 EST Tel , Service support ,
[2021-04-16] MEDS: Morphine 4 MG/ML Syringe IV (11:55)
[2021-04-16] MEDS: Ondansetron 4 MG/2 ML Vial IV (11:56)
[2021-04-16] MEDS: 0.9% Normal Saline 1,000 ML 1000 ML IV (11:56)
--- NOTE | 2021-04-16 12:01 | CT_ITS ---
INDICATION: flank pain EXAMINATION: CT ABDOMEN AND PELVIS WITHOUT CONTRAST - CT Abdomen And Pelvis W/O Contrast Injection TECHNIQUE: Helically acquired images were obtained of the abdomen and pelvis without oral or IV contrast. A radiation dose optimization technique was used for this scan. IV Contrast dosage and agent: None. Oral contrast: None. COMPARISON: None. FINDINGS: LOWER CHEST: Lung bases are clear. No cardiomegaly or pericardial effusion. LIVER: Homogeneous. No focal mass. GALLBLADDER AND BILIARY TREE: No calcified gallstones. No gallbladder distension or wall edema. No intra- or extrahepatic biliary ductal dilation. PANCREAS: No focal cystic or solid mass. SPLEEN: Normal size without focal cystic or solid mass. ADRENAL GLANDS: No nodules. KIDNEYS AND URETERS: Normal renal size and position. No hydronephrosis. 2.6 cm simple cyst visualized in the anterior aspect of the midpole of the left kidney. No evidence of renal stones is seen. PERITONEUM: No ascites or free air. No other fluid collection. BOWEL: The appendix is visualized and is unremarkable. Mild wall thickening visualized in the ascending colon subtle scattered diverticular disease but no evidence of acute diverticulitis. No stomach or bowel distension. No focal inflammatory change. LYMPH NODES: No enlarged mesenteric or retroperitoneal lymph nodes. VESSELS: Aorta is non-dilated. URINARY BLADDER: Unremarkable. REPRODUCTIVE ORGANS: Anteverted uterus is visualized and demonstrates unremarkable contours, intertwined consistent with septic device visualized in position. No pelvic masses. ABDOMINAL WALL: No discrete abdominal or pelvic wall hernia. BONES: No lytic or blastic abnormality.Degenerative bone changes seen. CT/Abdomen/Pelvis without Cont IMPRESSION: No evidence of acute abdominal pathology. Mild thickening visualized in the wall of the ascending colon but no evidence of stranding of the adjacent fat planes. Degenerative bone changes seen. Electronically Signed: Truman Posadas MD at 12:59 EST Tel , Service support ,
[2021-04-16 12:08] LABS: Absolute Neutrophil Count 2.3 X10^3/uL (2.0-7.7); Basophil# 0.07 X10^3/uL; Basophil% 1.7 % (0-1); Eosinophil# 0.07 X10^3/uL; Eosinophils% 1.7 % (0-5); Hematocrit 49.4 % (37-47); Hemoglobin 16.7 g/dL (12.0-15.0); Lymphocyte % 33.8 % (19-41); Mean Corp Hgb Conc 33.8 g/dL (32-36); Mean Corpuscular Hgb 31.9 pg (27.0-32.0); Mean Corpuscular Volume 94.3 fL (81-99); Mean Platelet Vol. 10.4 fl (6.2-12.0); Monocyte# 0.28 X10^3/uL; Monocyte% 6.8 % (0-10); NRBC Flagged by Analyzer 0 % (0-5); Neutrophil # 2.26 X10^3/uL (2.7-7.7); Neutrophil % 54.6 % (47-70); POSITIVE MORPHOLOGY YES; Platelet Count 168 K/mm3 (150-450); RBC Distribution Width SD 45.1 fl (35.1-43.9); Red Blood Count 5.24 M/mm3 (4.2-5.4); White Blood Count 4.1 K/mm3 (4.4-11.0)
[2021-04-16 12:10] LABS: Differential Indicated SCAN CRITERIA MET
[2021-04-16 12:32] LABS: Reactive Lymphocyte 1+
[2021-04-16 12:35] LABS: Mucous, Urine 0 SEEN /hpf (<or=2+); Red Blood Cells-Urine 0 SEEN /hpf (0-5)
[2021-04-16 12:40] LABS: Color, Urine Yellow (Yellow); Glucose, Dipstick Normal (Normal); Ketone-Dipstick 5 mg/dl (Negative); Leukocyte Esterase-Dipstick 100 /ul (Negative); Nitrite-Dipstick Positive (Negative); Occult Blood-Urine 25 /ul (Negative); Protein-Dipstick 30 mg/dl (Negative); Urine Clarity Cloudy (Clear); Urine Urobilinogen 1 mg/dl (Normal)
[2021-04-16 12:41] LABS: Urine Bilirubin Dipstick 1 mg/dL (Negative)
[2021-04-16 12:48] LABS: Bacteria 2+ /hpf (None Seen); Squamous Epithelial Cells - UA 0-5 SEEN /hpf (5-10); White Blood Cells 0-5 SEEN /hpf (0-5)
[2021-04-16 12:53] LABS: ALB/GLOB Ratio 0.6 RATIO (0.9-2.4); AST(SGOT) 103 U/L (15-37); Alanine Aminotransfer ALT/SGPT 109 U/L (13-56); Albumin, Serum 2.6 g/dL (3.2-5.0); Alkaline Phosphatase 140 U/L (45-117); Anion Gap 6 (5-15); BUN 17 mg/dL (7-18); BUN/Creat Ratio 18.8 RATIO (10-20); Calcium,Total 9.1 mg/dL (8.5-10.1); Chloride 104 mmol/L (98-107); EST Glomerular Filtration Rate 70 mL/min (>60); Est Glom Filt Rate - Afr Amer 85 mL/min (>60); Estimated Creatinine Clearance 59.15 ml/min; Globulin 4.3 g/dL (2.2-4.2); Glucose 140 mg/dL (74-106); Lipase 101 U/L (73-393); Potassium 4.2 mmol/L (3.5-5.1); Protein, Total 6.9 g/dL (6.4-8.2); Sodium Level 136 mmol/L (136-145); Troponin-I HS 14 pg/mL (3.0-54.0)
[2021-04-16] MEDS: Ceftriaxone 1 GM/50 ML BAG IV (13:11)
--- NOTE | 2021-04-16 13:51 | ED.VIS.GI ---
HPI HPI - GI History of Present Illness Chief Complaint: Flank Pain Narrative Narrative: Patient presenting with body aches, chills. She is not had fever. She describes back pain fairly diffusely of the upper and lower back. She describes this as achy in nature. He denies cough or shortness of breath. She is not having chest pain. Patient states that she is noted to be intermittently sweaty. She denies history of kidney stones. She denies dysuria, hematuria. She does not have abdominal pain. She does admit to some constipation. [facility] Medical History Acute respiratory failure Anxiety Bipolar disorder Cellulitis and abscess of neck Chronic back pain Bahman's angina Non-healing surgical wound Tobacco abuse Upper airway obstruction Home Medications esomeprazole magnesium 40 mg PO DAILY 08/28/16 [History Last Taken Unknown] pregabalin 50 mg PO TID 08/12/18 [History Last Taken Unknown] valacyclovir 1,000 mg PO DAILY 08/12/18 [History Last Taken Unknown] albuterol sulfate 2 puff INHALATION Q4H PRN PRN #1 inhaler 09/12/18 [Rx Last Taken Unknown] aripiprazole lauroxil 882 mg IM QMONTH 09/12/18 [History Last Taken Unknown] naproxen 500 mg PO BID #20 tab 11/01/18 [Rx Last Taken Unknown] umeclidinium 62.5 mcg-vilanterol 25 mcg/actuation powdr for inhalation 1 inh INHALATION Q24H #1 device 09/13/19 [Rx Last Taken Unknown] Bupropion Hcl [Bupropion Hcl Sr] 150 mg PO DAILY 07/02/20 [History Last Taken Unknown] cholecalciferol (vitamin D3) 5,000 unit PO DAILY 07/02/20 [History Last Taken Unknown] gabapentin 300 mg PO TIDCM 07/02/20 [History Last Taken Unknown] cephalexin [Keflex] 750 mg PO BID #14 cap 04/16/21 [Rx Last Taken Unknown] Allergy/AdvReac Type Severity Reaction Status Date / Time prednisone AdvReac Other Verified 04/16/21 12:02 Sulfa (Sulfonamide AdvReac Rash Verified 04/16/21 12:02 Antibiotics) Surgical History History of adenoidectomy History of cholecystectomy Social History Smoking Status: Current every day smoker tobacco type: cigarettes Tobacco: How many years used: 30 second hand exposure: Yes alcohol intake: current alcohol intake frequency: holidays/special occasions only substance use type: does not use ROS ROS ED Constitutional Constitutional ED: Reports chills and sweats; Denies fever(s) Eyes Eyes: Denies blurry vision or change in vision ENT ENT ED: Denies ear pain or sore throat Cardiovascular Cardiovascular: Denies chest pain, palpitations or racing heartbeat Respiratory/Chest Respiratory/Chest: Denies cough, dyspnea or sputum Gastrointestinal Gastrointestinal: Reports constipation and nausea; Denies abdominal pain, diarrhea or vomiting Genitourinary Genitourinary ED: Denies dysuria, hematuria or urinary frequency Musculoskeletal Musculoskeletal: Reports myalgias; Denies arthralgias or neck pain Integumentary Denies abscess, Abrasions or rash Neurologic Neurologic: Denies headache(s), paresthesias or weakness Psychiatric Psychiatric: Denies anxiety, depression, suicidal ideation or suicidal thoughts Endocrine Endocrinology: Denies polydipsia or polyuria EXAM Physical Exam Const Vital Signs: 04/16/21 11:20 04/16/21 14:16 Temperature 98.8 F Temperature Source Oral Pulse Rate 103 H 72 Respiratory Rate 24 H 15 Blood Pressure 152/80 H 124/69 H Blood Pressure Mean 104 87 Pulse Ox 100 97 Oxygen Delivery Method Room Air Room Air Positive well nourished, alert, oriented x3 and no apparent distress General Appearance ED: Negative for pallor HEENT Reports normocephalic, head/scalp atraumatic and moist mucous membranes Eyes PERRL and EOMs intact bilaterally Neck no lymphadenopathy and supple Chest Wall inspection of chest normal and palpation of chest normal Resp normal respiratory effort and clear to auscultation bilaterally Auscultation: Negative for rales, rhonchi or wheezes Cardio regular rhythm Rate: tachycardic GI normal to inspection, nondistended, normoactive bowel sounds and non-distended Auscultation: normoactive bowel sounds Palpation: soft Narrative: Deferred Back/Spine no CVA tenderness General Back: Negative for CVA tenderness Cervical Spine: Negative for cervical spine tenderness Extremity normal to inspection General Extremety ED: Negative for edema or tenderness General Extremity: Negative for edema Neuro oriented x3 and CN's II-XII intact bilaterally Sensorium / Orientation: alert Motor Exam: strength 5/5 throughout Psych mental status grossly normal Attitude: No agitated Skin no rashes or lesions noted and no wounds General Skin Exam: Negative for jaundice or pallor MDM MDM MDM Narrative Medical decision making narrative: Patient presenting with chills and sweats. She has some back pain but it is not exactly flank pain. Somewhat localizable and is on bilateral sides and upper lower back. She denies any trauma. Patient has multiple symptoms that need to be evaluated. I did obtain an EKG which is a sinus rhythm with a ventricular of 93 bpm without sign of ischemic change. Patient was given a liter of IV fluids, morphine, Zofran and she feels improved on reevaluation but reports epigastric pain and she is given a half a milligram of Dilaudid. CBC shows that her white blood count is 4.8. Hemoglobin hematocrit are stable. Platelets 168. AST, ALT, alk phos are slightly elevated. Creatinine electrolytes are normal. Chest x-ray on my interpretation shows no acute cardiopulmonary process and the radiologist does agree. High-sensitivity troponin was 14. CT of the abdomen pelvis ultimately negative for acute findings. Patient was found to have a urinary tract infection was given a dose of Rocephin. She feels improved after hydration antibiotics. I will start her on Keflex for home. Urine culture sent. Covid testing today was negative. Patient at this time I believe is safe to be discharged home and will return for any new or signs. Impression: 1. UTI Lab Data Attestation: I reviewed the patient's lab results. Labs: Laboratory Results - last 24 hr 04/16/21 04/16/21 04/16/21 11:32 11:55 11:55 WBC 4.1 L RBC 5.24 Hgb 16.7 H Hct 49.4 H MCV 94.3 MCH 31.9 MCHC 33.8 RDW Std Deviation 45.1 H RDW Coeff of Serafin 13.0 Plt Count 168 MPV 10.4 Immature Gran % (Auto) 1.400 H Neut % (Auto) 54.6 Lymph % (Auto) 33.8 Mora % (Auto) 6.8 Eos % (Auto) 1.7 Baso % (Auto) 1.7 H Absolute Neuts (auto) 2.3 Absolute Lymphs (auto) 1.40 Nucleated RBC % 0 Reactive Lymphocytes 1+ Sodium Cancelled Potassium Cancelled Chloride Cancelled Carbon Dioxide Cancelled Anion Gap Cancelled BUN Cancelled Creatinine Cancelled Estim Creat Clear Calc Cancelled Est GFR (MDRD) Af Amer Cancelled Est GFR (MDRD) Non-Af Cancelled BUN/Creatinine Ratio Cancelled Glucose Cancelled Calcium Cancelled Total Bilirubin Cancelled AST Cancelled ALT Cancelled Alkaline Phosphatase Cancelled Troponin I High Sens Cancelled Total Protein Cancelled Albumin Cancelled Globulin Cancelled Albumin/Globulin Ratio Cancelled Lipase Cancelled Urine Color Yellow Urine Clarity Cloudy Urine pH 6.0 Ur Specific [place] 1.020 Urine Protein 30 H Urine Glucose (UA) Normal Urine Ketones 5 H Urine Occult Blood 25 H Urine Nitrite Positive H Urine Bilirubin 1 H Urine Urobilinogen 1 H Ur Leukocyte Esterase 100 H Urine RBC 0 SEEN Urine WBC 0-5 SEEN Ur Squamous Epith Cells 0-5 SEEN Urine Bacteria 2+ Urine Mucus 0 SEEN 04/16/21 12:27 WBC RBC Hgb Hct MCV MCH MCHC RDW Std Deviation RDW Coeff of Serafin Plt Count MPV Immature Gran % (Auto) Neut % (Auto) Lymph % (Auto) Mora % (Auto) Eos % (Auto) Baso % (Auto) Absolute Neuts (auto) Absolute Lymphs (auto) Nucleated RBC % Reactive Lymphocytes Sodium 136 Potassium 4.2 Chloride 104 Carbon Dioxide 26.0 Anion Gap 6 BUN 17 Creatinine 0.90 Estim Creat Clear Calc 59.15 Est GFR (MDRD) Af Amer 85 Est GFR (MDRD) Non-Af 70 BUN/Creatinine Ratio 18.8 Glucose 140 H Calcium 9.1 Total Bilirubin 0.40 AST 103 H ALT 109 H Alkaline Phosphatase 140 H Troponin I High Sens 14 Total Protein 6.9 Albumin 2.6 L Globulin 4.3 H Albumin/Globulin Ratio 0.6 L Lipase 101 Urine Color Urine Clarity Urine pH Ur Specific [place] Urine Protein Urine Glucose (UA) Urine Ketones Urine Occult Blood Urine Nitrite Urine Bilirubin Urine Urobilinogen Ur Leukocyte Esterase Urine RBC Urine WBC Ur Squamous Epith Cells Urine Bacteria Urine Mucus Radiography Diagnostic Testing: Clinical Impression(s) from Imaging Studies Chest X-Ray 04/16/21 11:37 IMPRESSION: Normal x-ray examination of the chest. Electronically Signed: Deonte Thurman MD at 12:20 EST Tel , Service support , Abdomen/Pelvis CT 04/16/21 12:01 IMPRESSION: No evidence of acute abdominal pathology. Mild thickening visualized in the wall of the ascending colon but no evidence of stranding of the adjacent fat planes. Degenerative bone changes seen. Electronically Signed: Truman Posadas MD at 12:59 EST Tel , Service support , Discharge Plan Triage Chief Complaint: Flank Pain ED Provider: Guerrero Leroy Dx/Rx/DC Orders Instructions: ED CYSTITIS Female Adult Prescriptions: New cephalexin [Keflex] 750 mg capsule 750 mg PO BID Qty: 14 RF: 0 No Action esomeprazole magnesium 40 MG capsule,delayed release(DR/EC) 40 mg PO DAILY RF: 0 valacyclovir 1,000 MG tablet 1,000 mg PO DAILY RF: 0 pregabalin 50 MG capsule 50 mg PO TID RF: 0 aripiprazole lauroxil 882 MG/3.2 ML suspension,extended rel syring 882 mg IM QMONTH RF: 0 albuterol sulfate 1 INHALER inhaler 2 puff inhalation Q4H PRN PRN (Reason: Wheezing) Qty: 1 RF: 0 naproxen 500 MG tablet 500 mg PO BID Qty: 20 RF: 0 gabapentin 300 MG capsule 300 mg PO TIDCM RF: 0 cholecalciferol (vitamin D3) 1,000 UNIT tablet 5,000 unit PO DAILY RF: 0 Bupropion Hcl [Bupropion Hcl Sr] 150 MG Tab.Sr.12h 150 mg PO DAILY RF: 0 Anoro Ellipta 62.5-25 mcg/actuation blister with device 1 inh inhalation Q24H Qty: 1 RF: 3 Primary Care Provider: Eyad Robles Referrals: Eyad Robles MD [Primary Care Provider] - Disposition Disposition: Home, Self Care
[2021-04-16] MEDS: HYDROmorphone 0.5 MG/0.5 ML SYRINGE IV (14:15)
[2021-04-16 14:16] VITALS: BP 124/69; PULSE 72; RESP 15; O2SAT 97
== END 2021-04-16 15:16 | disposition home or self-care (01) ==
PROVIDERS: Emergency Provider Student in an Organized Health Care Education/Training Program; PCP Family Medicine
DX: N39.0 Urinary tract infection, site not specified (principal); F17.210 Nicotine dependence, cigarettes, uncomplicated; F31.9 Bipolar disorder, unspecified; F41.9 Anxiety disorder, unspecified; Z79.899 Other long term (current) drug therapy
CPT/HCPCS: 71045; 74176; 80053; 81001; 83690; 84484; 85025; 87086; 87088; 87426; 93005; 96365; 96375; 99283; J7030; A4216; J2405

== ENCOUNTER 2022-08-13 11:03 | Emergency (ER) | payer MEDICARE, MEDICAID, SELFPAY ==
[2022-08-13 11:03] VITALS: BP 207/105; PULSE 80; RESP 14; TEMP 36.1; O2SAT 96; BMI 51.2
--- NOTE | 2022-08-13 11:44 | EKG12_ITS ---
Test Reason : SOB Blood Pressure : / mmHG Vent. Rate : 074 BPM Atrial Rate : 074 BPM P-R Int : 124 ms QRS Dur : 100 ms QT Int : 424 ms P-R-T Axes : 037 -43 075 degrees QTc Int : 470 ms Sinus rhythm with Premature atrial complexes Left axis deviation Left ventricular hypertrophy with repolarization abnormality ( R in aVL , Pascual product , Romhilt-E stes ) Abnormal ECG Confirmed by DESIREE DELA CRUZ, KYLAH ([id number]), associate entertainment editor PRABHAKAR CASON ([id number]) on 08/16/2022 11:26:58 AM Referred By: Marlin Estrada Confirmed By:LINO RAMÍREZ MD
--- NOTE | 2022-08-13 11:50 | RAD_ITS ---
STUDY: X-RAY CHEST REASON FOR EXAM: Female, 51 years old. Cough, SOB TECHNIQUE: Single AP portable view of the chest. COMPARISON: April 16, 2021 chest x-ray, July 13, 2018 chest x-ray FINDINGS: Lung markings are relatively stable when compared to prior study with minimal interstitial prominence in summation of shadows. There is no demonstrated pleural abnormality. Normal size heart. Normal mediastinum and rogerio. Normal visualized pulmonary arteries. Normal visualized aortic arch and descending thoracic aorta. There are diffuse degenerative changes of the visualized thoracic spine. Normal visualized ribs, clavicles, and shoulders. There is no demonstrated abnormality of the visualized soft tissue structures of the upper abdomen. RAD/Chest PA and Lateral IMPRESSION: Stable chest. No demonstrated acute cardiopulmonary process. Electronically Signed: Aidee Jewell MD at 12:12 EDT ,
--- NOTE | 2022-08-13 11:52 | EDS_ITS ---
HPI History of Present Illness Chief Complaint: Shortness of Breath Informant: patient Narrative Narrative: Patient is a 51-year-old female with history of obesity, tobacco abuse and possible early COPD she was told at 1 point presenting with persistent cough. Patient states 3-1/2 to 4 weeks ago she had a flulike illness that lasted for 1 to 2 weeks. She has had a worsening cough since then but the remainder of her symptoms have resolved. She denies any recent fevers. She notes that she found an old albuterol inhaler and ran out of it today which is what actually brought her into the emergency room. She does not currently have a primary care doctor. Denies any chest pain. Denies any new fevers. Did have some production to her cough this morning. No other complaints at this time. Notes that she has a history of francheska associate with steroids and does not want any steroids or possible. [facility] Medical History Acute respiratory failure Anxiety Bipolar disorder Cellulitis and abscess of neck Chronic back pain Bahman's angina Non-healing surgical wound Tobacco abuse Upper airway obstruction Home Medications esomeprazole magnesium 40 mg capsule,delayed release 40 mg PO DAILY 08/28/16 [History Last Taken Unknown] pregabalin 50 mg capsule 50 mg PO TID 08/12/18 [History Last Taken Unknown] valacyclovir 1 gram tablet 1,000 mg PO DAILY 08/12/18 [History Last Taken Unknown] albuterol sulfate 90 mcg/actuation aerosol inhaler 2 puff inhalation Q4H PRN PRN Wheezing ##1 09/12/18 [Rx Last Taken Unknown] aripiprazole lauroxil 882 mg/3.2 mL suspension, ext.rel. IM syringe 882 mg IM QMONTH 09/12/18 [History Last Taken Unknown] naproxen 500 mg tablet 500 mg PO BID #20 tabs 11/01/18 [Rx Last Taken Unknown] umeclidinium 62.5 mcg-vilanterol 25 mcg/actuation powdr for inhalation (Anoro Ellipta) 1 inh inhalation Q24H #1 device 09/13/19 [Rx Last Taken Unknown] Bupropion Hcl [Bupropion Hcl Sr] 150 mg PO DAILY 07/02/20 [History Last Taken Unknown] cholecalciferol (vitamin D3) 25 mcg (1,000 unit) tablet 5,000 unit PO DAILY 07/02/20 [History Last Taken Unknown] gabapentin 300 mg capsule 300 mg PO TIDCM 07/02/20 [History Last Taken Unknown] cephalexin 750 mg capsule (Keflex) 750 mg PO BID #14 caps 04/16/21 [Rx Last Taken Unknown] Allergy/AdvReac Type Severity Reaction Status Date / Time prednisone AdvReac Other Verified 08/13/22 11:05 Sulfa (Sulfonamide AdvReac Rash Verified 08/13/22 11:05 Antibiotics) Surgical History History of adenoidectomy History of cholecystectomy Social History Smoking Status: Current every day smoker tobacco type: cigarettes Tobacco: How many years used: 30 second hand exposure: Yes alcohol intake: current alcohol intake frequency: holidays/special occasions only substance use type: does not use ROS ROS ED Constitutional Constitutional ED: Denies chills or fever(s) ENT ENT ED: Denies rhinorrhea or sore throat Cardiovascular Cardiovascular: Denies chest pain, orthopnea or palpitations Respiratory/Chest Respiratory/Chest: Reports cough; Denies dyspnea, dyspnea on exertion or orthopnea Gastrointestinal Gastrointestinal: Denies nausea or vomiting Musculoskeletal Musculoskeletal: Denies arthralgias or myalgias Integumentary Denies rash Neurologic Neurologic: Denies headache(s) EXAM Physical Exam Const Vital Signs: 08/13/22 11:03 08/13/22 11:09 08/13/22 12:18 Temperature 97.0 F L Temperature Source Temporal Pulse Rate 80 77 Respiratory Rate 14 20 H Respiratory Effort Short of Breath Respiratory Depth Normal Respiratory Pattern Tachypnea Blood Pressure 207/105 H Blood Pressure Mean 139 Pulse Ox 96 Oxygen Delivery Method Room Air 08/13/22 13:16 Temperature Temperature Source Pulse Rate 89 Respiratory Rate Respiratory Effort Respiratory Depth Respiratory Pattern Blood Pressure 154/92 H Blood Pressure Mean 112 Pulse Ox 95 Oxygen Delivery Method Room Air Positive well nourished, well developed and obese General Appearance ED: well developed Nutritional Appearance: obese HEENT Reports moist mucous membranes Eyes PERRL and EOMs intact bilaterally Neck supple and no JVD Resp normal respiratory effort Resp Narrative: Intermittent bronchial cough. Very mild end expiratory wheeze appreciated. Cardio regular rate, regular rhythm and no murmurs GI non-tender and non-distended Extremity normal to inspection General Extremety ED: Negative for edema or tenderness General Extremity: Negative for edema Neuro oriented x3 Sensorium / Orientation: alert Motor Exam: Negative for general weakness Psych mental status grossly normal Skin Lesions: no lesions Rashes: no rashes MDM MDM MDM Narrative Medical decision making narrative: Patient is evaluated for continued cough and chest tightness. She has been having symptoms for 3-1/2 to 4 weeks. It sounds like it started with of viral syndrome and is progressed. Exam is most consistent with COPD/bronchitis. She is nontoxic. On arrival she is quite hypertensive at 207/105 after breathing treatment blood pressure improved to 154/92. Patient feels much better after receiving a DuoNeb. Chest x-ray to read by myself as well as radiology does not show any acute process. I suspect this is likely viral/reactive in nature. Discussed putting the patient on steroids however she does not want steroids as she has a history of francheska associated with them. Given that her symptoms are relatively mild think is reasonable. Patient is ambulated in the ER and does not drop below 91%. She does not have fever or other infectious symptoms and no pneumonia on her chest x-ray will defer antibiotics at this time. Radiography Chest X-Ray - ED: 2 View, Read by ED Physician, Read by Radiologist and No Acute Disease Diagnostic Testing: Clinical Impression(s) from Imaging Studies Chest X-Ray 08/13/22 11:50 IMPRESSION: Stable chest. No demonstrated acute cardiopulmonary process. Electronically Signed: Aidee Jewell MD at 12:12 EDT Reading Location ID and State: [facility] / [place] Tel , Service support , Rhythm Strip Rhythm Strip: Sinus Rhythm Rate: 74 Ectopy: None EKG Initial EKG: Attestation: I personally reviewed and interpreted this EKG as follows: Interpretation: Sinus Rhythm Comments: Normal sinus rhythm at a rate of 74 bpm with PAC present Left axis deviation LVH Normal ST segments Normal QTc Discharge Plan Triage Chief Complaint: Shortness of Breath ED Provider: Marlin Estrada Dx/Rx/DC Orders Clinical Impression: Acute bronchitis, Tobacco abuse Instructions: ED Bronchitis, No Antibiotic (Adult) Prescriptions: No Action esomeprazole magnesium 40 MG capsule,delayed release(DR/EC) 40 mg PO DAILY valacyclovir 1,000 MG tablet 1,000 mg PO DAILY pregabalin 50 MG capsule 50 mg PO TID aripiprazole lauroxil 882 MG/3.2 ML suspension,extended rel syring 882 mg IM QMONTH albuterol sulfate 1 INHALER inhaler 2 puff inhalation Q4H PRN PRN (Reason: Wheezing) Qty: 1 0RF naproxen 500 MG tablet 500 mg PO BID Qty: 20 0RF gabapentin 300 MG capsule 300 mg PO TIDCM cholecalciferol (vitamin D3) 1,000 UNIT tablet 5,000 unit PO DAILY Bupropion Hcl [Bupropion Hcl Sr] 150 MG Tab.Sr.12h 150 mg PO DAILY cephalexin [Keflex] 750 mg capsule 750 mg PO BID Qty: 14 0RF Anoro Ellipta 62.5-25 mcg/actuation blister with device 1 inh inhalation Q24H Qty: 1 3RF Primary Care Provider: Eyad Robles Referrals: Eyad Robles MD [Primary Care Provider] - Activity Restrictions/Additional Instructions: Please stop smoking as we discussed. Use the inhaler provided today, 1 to 2 puffs every 4-6 hours as needed for cough, wheezing or shortness of breath/chest tightness. No signs of pneumonia. Your blood pressure was elevated upon arrival however it did improve while in the ER. Please follow-up with a primary care doctor for further evaluation. Return if you have a progression or worsening of your symptoms. Disposition Disposition: Home, Self Care Discharge Date/Time: 08/13/22 13:48
[2022-08-13] MEDS: Ipratropium/Albuterol Sulfate 3 ML AMPUL.NEB INHALATION (12:15)
[2022-08-13 12:18] VITALS: PULSE 77; RESP 20
[2022-08-13 12:47] VITALS: O2SAT 94
[2022-08-13 13:16] VITALS: BP 154/92; PULSE 89; O2SAT 95
[2022-08-13] MEDS: Albuterol Sulfate 8 gm Inhaler (60 puffs) 2 PUFF INHALATION (13:47)
== END 2022-08-13 13:48 | disposition home or self-care (01) ==
PROVIDERS: Emergency Provider Emergency Medicine; PCP Family Medicine; Referring Provider Emergency Medicine; Visit Provider Emergency Medicine
DX: J20.9 Acute bronchitis, unspecified (principal); F17.210 Nicotine dependence, cigarettes, uncomplicated; E66.9 Obesity, unspecified
CPT/HCPCS: 71046; 93005; 94640; 99282

== ENCOUNTER 2022-09-04 10:30 | Observation (INO) | payer MEDICARE, MEDICAID, SELFPAY ==
[2022-09-04] VITALS (8 sets, daily range): BP systolic 125–164; BP diastolic 69–85; PULSE 78–90; RESP 18–22; TEMP 35.7–36.8; O2SAT 88–97; BMI 52.0; BMI 50.3
--- NOTE | 2022-09-04 10:50 | RAD_ITS ---
EXAM: XR CHEST, 1 VIEW CLINICAL INDICATION: chest pain TECHNIQUE: Frontal view of the chest. COMPARISON: XR Chest dated 08/13/2022 FINDINGS: LUNGS AND PLEURAL SPACES: Shallow inspiration. No pneumothorax. No effusion. HEART: Normal heart size. MEDIASTINUM: No mediastinal or hilar mass. BONES/JOINTS: No acute abnormality. RAD/Chest 1 View (Portable) IMPRESSION: No acute cardiopulmonary abnormality. Electronically Signed: Tapan Otero MD at 12:11 EDT ,
--- NOTE | 2022-09-04 10:50 | EKG12_ITS ---
Test Reason : CP Blood Pressure : / mmHG Vent. Rate : 083 BPM Atrial Rate : 083 BPM P-R Int : 118 ms QRS Dur : 098 ms QT Int : 402 ms P-R-T Axes : 029 -39 073 degrees QTc Int : 472 ms Normal sinus rhythm Left axis deviation Left ventricular hypertrophy with repolarization abnormality ( R in aVL , Pascual product , Romhilt-E stes ) Abnormal ECG Confirmed by CHICHI DELA CRUZ, VEL ([id number]), clinical editor PRABHAKAR CASON ([id number]) on 09/06/2022 11:21:07 AM Referred By: Confirmed By:VEL CADET MD
--- NOTE | 2022-09-04 10:53 | EDS_ITS ---
HPI History of Present Illness Chief Complaint: Chest Pain Narrative Narrative: 51-year-old female presenting with sharp pain in the upper left side of her back. She denies any anterior chest pain. She states that she has had this progressively and is getting worse over the last couple of weeks. She was seen in the ER previously around that time and was diagnosed with acute bronchitis. She does not have a primary care physician and did not try to make any follow- up. She was told years ago that she has early stage of COPD but never followed up with it. She denies any fevers or chills. Patient states that last night she started to have blood tingeing in her sputum. She called the nurses line today who told her to call 911. PE Risk Factors: Negative for Recent Travel/Surgery, Recent Immobilization, Prior DVT or PE or Cancer [facility] Medical History Acute respiratory failure Anxiety Bipolar disorder Cellulitis and abscess of neck Chronic back pain Bahman's angina Non-healing surgical wound Tobacco abuse Upper airway obstruction Home Medications valacyclovir 1 gram tablet 1,000 mg PO DAILY 08/12/18 [History Last Taken Unknown] albuterol sulfate 90 mcg/actuation aerosol inhaler 2 puff inhalation Q4H PRN PRN Wheezing ##1 09/12/18 [Rx Last Taken Unknown] aripiprazole lauroxil 882 mg/3.2 mL suspension, ext.rel. IM syringe 882 mg IM QMONTH 09/12/18 [History Last Taken Unknown] cholecalciferol (vitamin D3) 25 mcg (1,000 unit) tablet 5,000 unit PO DAILY 07/02/20 [History Last Taken Unknown] gabapentin 300 mg capsule 300 mg PO TIDCM 07/02/20 [History Last Taken Unknown] bupropion HCl 300 mg 24 hr tablet, extended release 300 mg PO DAILY 09/04/22 [History Last Taken Unknown] naproxen 500 mg tablet 500 mg PO BID PRN Pain 09/04/22 [History Last Taken Unknown] omeprazole 20 mg tablet,delayed release 20 mg PO DAILY 09/04/22 [History Last Taken Unknown] Allergy/AdvReac Type Severity Reaction Status Date / Time prednisone AdvReac Other Verified 08/13/22 11:05 Sulfa (Sulfonamide AdvReac Rash Verified 08/13/22 11:05 Antibiotics) Family History (Updated 09/04/22 @ 13:[address] Sergey Colon MD) Other Heart disease Surgical History History of adenoidectomy History of cholecystectomy Social History Smoking Status: Current every day smoker tobacco type: cigarettes Tobacco: How many years used: 30 second hand exposure: Yes alcohol intake: current alcohol intake frequency: holidays/special occasions only substance use type: does not use ROS ROS ED Constitutional Constitutional ED: Denies chills, fever(s) or sweats Eyes Eyes: Denies blurry vision or change in vision ENT ENT ED: Denies ear pain or sore throat Cardiovascular Cardiovascular: Denies chest pain, palpitations or racing heartbeat Respiratory/Chest Respiratory/Chest: Reports cough, dyspnea and other; Denies sputum Gastrointestinal Gastrointestinal: Denies abdominal pain, constipation, diarrhea, nausea or vomiting Genitourinary Genitourinary ED: Denies dysuria, hematuria or urinary frequency Musculoskeletal Musculoskeletal: Reports back pain; Denies arthralgias, myalgias or neck pain Integumentary Denies abscess, Abrasions or rash Neurologic Neurologic: Denies headache(s), paresthesias or weakness Psychiatric Psychiatric: Denies anxiety, depression, suicidal ideation or suicidal thoughts Endocrine Endocrinology: Denies polydipsia or polyuria EXAM Physical Exam Const Vital Signs: 09/04/22 10:31 09/04/22 10:34 09/04/22 10:30 Temperature 96.3 F L Temperature Source Oral Pulse Rate 90 Respiratory Rate 22 H Respiratory Effort Normal Blood Pressure 164/85 H Blood Pressure Mean 111 Pulse Ox 94 Oxygen Delivery Method Room Air 09/04/22 10:55 09/04/22 13:09 09/04/22 13:24 Temperature 96.3 F L Temperature Source Temporal Pulse Rate 78 85 Respiratory Rate 18 18 Respiratory Effort Blood Pressure 131/85 H 133/73 H Blood Pressure Mean 100 93 Pulse Ox 94 94 Oxygen Delivery Method Room Air Room Air Room Air Positive obese General Appearance ED: NAD; Negative for pallor Nutritional Appearance: obese HEENT Reports moist mucous membranes normocephalic and atraumatic Eyes PERRL and EOMs intact bilaterally Resp normal respiratory effort and clear to auscultation bilaterally Auscultation: Negative for rales, rhonchi or wheezes Cardio regular rate and regular rhythm Extremity normal to inspection Neuro oriented x3 and CN's II-XII intact bilaterally Psych mental status grossly normal Skin General Skin Exam: Negative for jaundice or pallor MDM MDM MDM Narrative Medical decision making narrative: 51-year-old female currently a smoker presenting with blood-tinged sputum. Patient states it started last night. Recent history of bronchitis. She denies any current fevers or chills. She is concerned because she is having posterior rib pain which is sharp and is worse when she takes a deep breath. She is complaining a little bit of dyspnea. Differential includes but is not limited to CHF, bronchitis, ACS, PE, pneumonia, pneumothorax, muscle strain. Malignancy is also considered given her history of smoking. I did consider dissection however she is not having ripping tearing pain and her vital signs are stable. CBC to assess white blood cell count, hemoglobin, platelets, differential. BMP to assess renal function, electrolytes, glucose, anion gap. High-sensitivity troponin and EKG to assess for ischemia. Chest x-ray to rule out pneumonia. D-dimer will be obtained to assess for PE. BNP to assess for CHF. CBC shows a slight leukocytosis of 12.2. Hemoglobin stable 14.4. Hematocrit 44.3, platelets 250. Troponin is normal at 15. Do not believe she needs a delta troponin. Chest x-ray on my interpretation showed no acute cardiopulmonary process. Radiologist interprets this and agrees. D-dimer was elevated at 1.97. CTA of the chest is performed and shows bilateral pulmonary emboli without evidence of heart strain. There is also pulmonary infarcts. Discussed with pulmonology. Dr. Oreilly felt it was reasonable to admit her overnight due to the hemoptysis and PEs. Discussed with hospitalist for admission. Impression: 1. Chest pain 2. Bilateral pulmonary emboli 3. Pulmonary infarcts Lab Data Attestation: I reviewed the patient's lab results. Labs: Laboratory Results - last 24 hr 09/04/22 09/04/22 09/04/22 10:30 10:30 10:30 WBC 12.2 H RBC 4.63 Hgb 14.4 Hct 44.3 MCV 95.7 MCH 31.1 MCHC 32.5 RDW Std Deviation 47.8 H RDW Coeff of Serafin 13.6 Plt Count 250 MPV 10.1 Immature Gran % (Auto) 0.800 Neut % (Auto) 66.6 Lymph % (Auto) 24.5 [place] % (Auto) 7.2 Eos % (Auto) 0.5 Baso % (Auto) 0.4 Absolute Neuts (auto) 8.1 H Absolute Lymphs (auto) 2.99 Nucleated RBC % 0 PT INR APTT D-Dimer Quant (PE/DVT) 1.97 H* Sodium 137 Potassium 4.2 Chloride 98 Carbon Dioxide 30.0 Anion Gap 9 BUN 14 Creatinine 1.19 H Estim Creat Clear Calc 44.24 Est GFR (MDRD) Af Amer 61 Est GFR (MDRD) Non-Af 51 L BUN/Creatinine Ratio 11.8 Glucose 294 H Calcium 9.8 Troponin I High Sens 15 B-Natriuretic Peptide 09/04/22 09/04/22 10:30 10:30 WBC RBC Hgb Hct MCV MCH MCHC RDW Std Deviation RDW Coeff of Serafin Plt Count MPV Immature Gran % (Auto) Neut % (Auto) Lymph % (Auto) [place] % (Auto) Eos % (Auto) Baso % (Auto) Absolute Neuts (auto) Absolute Lymphs (auto) Nucleated RBC % PT 12.0 INR 0.9 APTT 27.2 D-Dimer Quant (PE/DVT) Sodium Potassium Chloride Carbon Dioxide Anion Gap BUN Creatinine Estim Creat Clear Calc Est GFR (MDRD) Af Amer Est GFR (MDRD) Non-Af BUN/Creatinine Ratio Glucose Calcium Troponin I High Sens B-Natriuretic Peptide 27.1 Radiography Diagnostic Testing: Clinical Impression(s) from Imaging Studies Chest X-Ray 09/04/22 10:50 IMPRESSION: No acute cardiopulmonary abnormality. Electronically Signed: Tapan Otero MD at 12:11 EDT , Chest CTA 09/04/22 11:35 IMPRESSION: 1. Bilateral acute pulmonary embolism without evidence of right heart strain. 2. Left lower lobe pulmonary density suggestive of infarction. N.B. : The above Results were Read Back by Tapan Otero MD to Rad Masters DO, and understanding confirmed on 09/04/2022 12:44:50 (ET). Electronically Signed: Tapan Otero MD at 12:47 EDT , ADDENDUM: 09/04/22 1254 IMPRESSION: 1. Bilateral acute pulmonary embolism without evidence of right heart strain. 2. Left lower lobe pulmonary density suggestive of infarction. N.B. : The above Results were Read Back by Tapan Otero MD to Rad Masters DO, and understanding confirmed on 09/04/2022 12:44:50 (ET). Electronically Signed: Tapan Otero MD at 12:47 EDT , Discharge Plan Triage Chief Complaint: Chest Pain ED Provider: Guerreor Leroy Dx/Rx/DC Orders Primary Care Provider: Care Physician,No Primary
[2022-09-04] MEDS: Aspirin 81 MG TAB.CHEW 324 MG PO (10:58)
[2022-09-04 11:14] LABS: Absolute Lymphocyte Count 2.99 X10^3/uL (0.83-4.51); Absolute Neutrophil Count 8.1 X10^3/uL (2.0-7.7); Basophil# 0.05 X10^3/uL; Basophil% 0.4 % (0-1); Eosinophil# 0.06 X10^3/uL; Eosinophils% 0.5 % (0-5); Hematocrit 44.3 % (37-47); Hemoglobin 14.4 g/dL (12.0-15.0); Lymphocyte # 2.99 X10^3/ul (0.83-4.51); Lymphocyte % 24.5 % (19-41); Mean Corp Hgb Conc 32.5 g/dL (32-36); Mean Corpuscular Hgb 31.1 pg (27.0-32.0); Mean Corpuscular Volume 95.7 fL (81-99); Mean Platelet Vol. 10.1 fl (6.2-12.0); Monocyte# 0.88 X10^3/uL; Monocyte% 7.2 % (0-10); NRBC Flagged by Analyzer 0 % (0-5); Neutrophil # 8.13 X10^3/uL (2.7-7.7); Neutrophil % 66.6 % (47-70); Platelet Count 250 K/mm3 (150-450); RBC Distribution Width CV 13.6 % (11.6-14.6); RBC Distribution Width SD 47.8 fl (35.1-43.9); Red Blood Count 4.63 M/mm3 (4.2-5.4); White Blood Count 12.2 K/mm3 (4.4-11.0)
[2022-09-04 11:17] LABS: Anion Gap 9 (5-15); BUN 14 mg/dL (7-18); BUN/Creat Ratio 11.8 RATIO (10-20); Calcium,Total 9.8 mg/dL (8.5-10.1); Chloride 98 mmol/L (98-107); Creatinine, Serum 1.19 mg/dL (0.55-1.02); EST Glomerular Filtration Rate 51 mL/min (>60); Est Glom Filt Rate - Afr Amer 61 mL/min (>60); Estimated Creatinine Clearance 44.24 ml/min; Glucose 294 mg/dL (74-106); Potassium 4.2 mmol/L (3.5-5.1); Sodium Level 137 mmol/L (136-145); Troponin-I HS 15 pg/mL (3.0-54.0)
[2022-09-04 11:29] LABS: D-Dimer Quantitative (DVT/PE) 1.97 FEU/ug/m (0.27-0.49)
--- NOTE | 2022-09-04 11:35 | CT_ITS ---
EXAM: CT ANGIOGRAPHY CHEST WITH INTRAVENOUS CONTRAST CLINICAL INDICATION: chest pain TECHNIQUE: Helically acquired angiography images were obtained of the chest with intravenous contrast. This CT exam was performed using one or more of the following dose reduction techniques: automated exposure control, adjustment of the mA and/or kV according to patient size, and/or use of iterative reconstruction technique. MIP reconstructed images were created and reviewed. CONTRAST: IV 100mL [id number] COMPARISON: No relevant prior studies available. FINDINGS: PULMONARY ARTERIES: Acute pulmonary embolism involves the secondary and tertiary branches of the upper or lower lobe pulmonary arteries. Largest embolism load extending into the left lower lobe. AORTA: Normal. Normal in caliber. No evidence of dissection. GREAT VESSELS OF AORTIC ARCH: Normal. Normal in caliber. No evidence of dissection. LUNGS AND PLEURAL SPACES: Patchy airspace opacification along the periphery of the left lower lobe suggestive of pneumonia or acute pulmonary infarction. Lungs are otherwise clear. Minimal left pleural effusion. No mass. HEART: Heart is normal size. No evidence of right heart strain. No coronary artery calcification. No pericardial effusion. MEDIASTINUM: Normal. No mediastinal or hilar adenopathy. Esophagus is unremarkable. No hiatal hernia. BONES/JOINTS: Normal. No suspicious lytic or blastic abnormality. CT/CTA Chest W/WO Contrast IMPRESSION: 1. Bilateral acute pulmonary embolism without evidence of right heart strain. 2. Left lower lobe pulmonary density suggestive of infarction. N.B. : The above Results were Read Back by Tapan Otero MD to Rad Masters DO, and understanding confirmed on 09/04/2022 12:44:50 (ET). Electronically Signed: Tapan Otero MD at 12:47 EDT ,
[2022-09-04 11:48] LABS: BNP,B-Type NATRIURETIC PEPTIDE 27.1 pg/mL (0-100)
--- NOTE | 2022-09-04 13:27 | PCM.HP.STD ---
HPI - General General Date of Admission: 09/04/22 HPI Narrative MANUEL HORN, is a 51 F who presents to the hospital with acute left upper back pain as well as new onset hemoptysis, no anterior chest pain or shortness of breath. She has been having episodes of coughing and thought that it was due to bronchitis and has been on antibiotics as an outpatient however she presented to the hospital because of the acute back pain and was found to have bilateral PEs with a left-sided pulmonary infarction. The case was discussed with pulmonology who recommended that we bring her in for a heparin drip because she was also having an episode of hemoptysis. She denies any history of easy bleeding and unfortunate does not know any of her family if she is adopted. She denies any history of blood clots or miscarriages and she denies any calf pain recently. She is a smoker but she does not take any hormone replacement therapy. [facility] Medical History Acute respiratory failure Anxiety Bipolar disorder Cellulitis and abscess of neck Chronic back pain Bahman's angina Non-healing surgical wound Tobacco abuse Upper airway obstruction Home Medications valacyclovir 1 gram tablet 1,000 mg PO DAILY 08/12/18 [History Last Taken Unknown] albuterol sulfate 90 mcg/actuation aerosol inhaler 2 puff inhalation Q4H PRN PRN Wheezing ##1 09/12/18 [Rx Last Taken Unknown] aripiprazole lauroxil 882 mg/3.2 mL suspension, ext.rel. IM syringe 882 mg IM QMONTH 09/12/18 [History Last Taken Unknown] cholecalciferol (vitamin D3) 25 mcg (1,000 unit) tablet 5,000 unit PO DAILY 07/02/20 [History Last Taken Unknown] gabapentin 300 mg capsule 300 mg PO TIDCM 07/02/20 [History Last Taken Unknown] bupropion HCl 300 mg 24 hr tablet, extended release 300 mg PO DAILY 09/04/22 [History Last Taken Unknown] naproxen 500 mg tablet 500 mg PO BID PRN Pain 09/04/22 [History Last Taken Unknown] omeprazole 20 mg tablet,delayed release 20 mg PO DAILY 09/04/22 [History Last Taken Unknown] Allergy/AdvReac Type Severity Reaction Status Date / Time prednisone AdvReac Other Verified 08/13/22 11:05 Sulfa (Sulfonamide AdvReac Rash Verified 08/13/22 11:05 Antibiotics) Family History adopted adopted Surgical History History of adenoidectomy History of cholecystectomy Social History Smoking Status: Current every day smoker tobacco type: cigarettes Tobacco: How many years used: 30 second hand exposure: Yes alcohol intake: current alcohol intake frequency: holidays/special occasions only substance use type: does not use ROS Constitutional Constitutional: Denies chills, fatigue, fever(s) or malaise Eyes Eyes: Denies blurry vision ENT HEENT: Denies headache(s) or nasal discharge Cardiovascular Cardiovascular: Denies chest pain, dyspnea on exertion or syncope Respiratory/Chest Respiratory/Chest: Reports cough and hemoptysis; Denies shortness of breath at rest or shortness of breath with exertion Gastrointestinal Gastrointestinal: Denies constipation, diarrhea, nausea or vomiting Genitourinary Genitourinary: Denies dysuria Neurologic Neurologic: Denies focal weakness, numbness or tremor(s) Psychiatric Psychiatric: Denies anxiety or depression Vital Signs Vital Signs Vital Signs: 09/04/22 10:31 09/04/22 10:34 09/04/22 10:30 Temperature 96.3 F L Temperature Source Oral Pulse Rate 90 Respiratory Rate 22 H Respiratory Effort Normal Blood Pressure 164/85 H Blood Pressure Mean 111 Pulse Ox 94 Oxygen Delivery Method Room Air 09/04/22 10:55 09/04/22 13:09 09/04/22 13:24 Temperature 96.3 F L Temperature Source Temporal Pulse Rate 78 85 Respiratory Rate 18 18 Respiratory Effort Blood Pressure 131/85 H 133/73 H Blood Pressure Mean 100 93 Pulse Ox 94 94 Oxygen Delivery Method Room Air Room Air Room Air Weight Weight: 284 lb 9.868 oz Body Mass Index (BMI) 52.0 Physical Exam Narrative General: Alert, Oriented x3, Cooperative, No apparent distress HEENT: Atraumatic, PERRLA, EOMI, Normocephalic Oral: Moist Mucosa Neck: Supple, No JVD Lungs: Diminished, Normal air movement, No rhonchi, No wheeze, No rales, slight crackles in left base Cardiovascular: Regular rate, Regular Rhythm, Normal S1, Normal S2, No murmurs Abdomen: Soft, Non Tender, Non-Distended, No Hepato-splenomegaly Extremities: No edema, Capillary Refill Less than 3 Seconds Skin: No rashes, No breakdown Musculoskeletal: No Tenderness to Palpation of Joints or Extremities Neurological: Motor Exam 5/5 strength throughout, Sensory exam intact to light touch and pain Psych/Mental Status: Normal Affect, Appropriate Results Lab / Micro Data Result Diagrams: 09/04/22 10:30 09/04/22 10:30 Labs: Laboratory Results - last 24 hr 09/04/22 10:30: WBC 12.2 H, RBC 4.63, Hgb 14.4, Hct 44.3, MCV 95.7, MCH 31.1, MCHC 32.5, RDW Std Deviation 47.8 H, RDW Coeff of Serafin 13.6, Plt Count 250, MPV 10.1, Immature Gran % (Auto) 0.800, Neut % (Auto) 66.6, Lymph % (Auto) 24.5, [place] % (Auto) 7.2, Eos % (Auto) 0.5, Baso % (Auto) 0.4, Absolute Neuts (auto) 8.1 H, Absolute Lymphs (auto) 2.99, Nucleated RBC % 0 09/04/22 10:30: D-Dimer Quant (PE/DVT) 1.97 H* 09/04/22 10:30: Sodium 137, Potassium 4.2, Chloride 98, Carbon Dioxide 30.0, Anion Gap 9, BUN 14, Creatinine 1.19 H, Estim Creat Clear Calc 44.24, Est GFR (MDRD) Af Amer 61, Est GFR (MDRD) Non-Af 51 L, BUN/Creatinine Ratio 11.8, Glucose 294 H, Calcium 9.8, Troponin I High Sens 15 09/04/22 10:30: B-Natriuretic Peptide 27.1 Radiology Impression Chest X-Ray 09/04/22 10:50 IMPRESSION: No acute cardiopulmonary abnormality. Electronically Signed: Tapan Oetro MD at 12:11 EDT Reading Location ID and State: [facility] / [place] Tel , Service support , Chest CTA 09/04/22 11:35 IMPRESSION: 1. Bilateral acute pulmonary embolism without evidence of right heart strain. 2. Left lower lobe pulmonary density suggestive of infarction. N.B. : The above Results were Read Back by Tapan Otero MD to Rad Masters DO, and understanding confirmed on 09/04/2022 12:44:50 (ET). Electronically Signed: Tapan Otero MD at 12:47 EDT , ADDENDUM: 09/04/22 1254 IMPRESSION: 1. Bilateral acute pulmonary embolism without evidence of right heart strain. 2. Left lower lobe pulmonary density suggestive of infarction. N.B. : The above Results were Read Back by Tapan Otero MD to Rad Masters DO, and understanding confirmed on 09/04/2022 12:44:50 (ET). Electronically Signed: Tapan Otero MD at 12:47 EDT , Assessment & Plan Assessment/Plan (1) Bilateral pulmonary embolism: (2) Pulmonary infarction: PLAN: Plan 1. Bilateral pulmonary embolism with left-sided pulmonary infarction and hemoptysis ? We will place on a heparin drip and plan to discharge tomorrow on p.o. Eliquis ? Would benefit from outpatient hematology to assess for clotting risk ? She is not tachycardic or hypoxic therefore an echo is unnecessary 2. COPD ? Not in exacerbation ? Can continue with her inhalers 3. GERD ?stable ? Continue with PPI 4. Anxiety/depression ? Stable ? Continue with her home medications DVT: Heparin drip 75 minutes was spent on direct patient care as well as chart review and collaboration with colleagues Charges/Coding Visit Charges Inpatient E&M: 79191 Init Hosp L3
[2022-09-04 13:46] LABS: International Normalized Ratio 0.9
[2022-09-04 13:47] LABS: Partial Thromboplast Time 27.2 Seconds (24.1-36.2)
[2022-09-04] MEDS: Heparin Injection (Vial) 5,000 UNIT/ML VIAL IV (13:58)
[2022-09-04] MEDS: HEPARIN/D5w 25,000 UNITS 25,000 UNITS/250 ML IV.SOLN. 17 UNITS CONT INF (13:59)
--- NOTE | 2022-09-04 16:57 | CASEMGMT ---
ZEE LOCKHART NOTE: Anticipate pt will discharge home tomorrow on Eliquis. ZEE LOCKHART to room. Introduced self and role. Pt given Eliquis 30-day savings card and instructed on use. Pt states usually uses [place] [facility] for rx's but they do not deliver on Sundays. Pt states can send Rx's to [facility] pharmacy. She states she is not sure who will be able to take her home tomorrow after discharging from the hospital, but she will think about it and try to find someone who is available and states will ask them to take her to the pharmacy as well. Pt does not have PCP and states would take a list. Given at this time. Pt states she is aware that her insurance will provide transportation to doctor appt's. Pt also provided w/[facility] Van transportation services. Pt does not have Home O2. Made aware [employer] is affilated w/[facility] and they deliver on weekends. Pt states is okay w/[employer]. Pt does not a pulse ox. Green sheet placed on chart w/instructions if pt qualifies for home O2 and nursing to give pt pulse ox @ d/c. She denies having other discharge planning needs or concerns. Fernando MARTINEZ RN, CM
[2022-09-04] MEDS: Gabapentin 300 MG Capsule PO (17:14)
[2022-09-04] MEDS: Naproxen 500 MG Tablet PO (17:20)
[2022-09-04 20:06] LABS: Partial Thromboplast Time 87.9 Seconds (24.1-36.2)
[2022-09-05 00:13] VITALS: BP 128/67; PULSE 74; RESP 19; TEMP 36.7; O2SAT 96
[2022-09-05] MEDS: Acetaminophen 325 MG Tablet 650 MG PO (00:15)
[2022-09-05 02:51] LABS: Absolute Lymphocyte Count 2.97 X10^3/uL (0.83-4.51); Absolute Neutrophil Count 5.1 X10^3/uL (2.0-7.7); Basophil# 0.06 X10^3/uL; Basophil% 0.6 % (0-1); Eosinophils% 1.1 % (0-5); Hematocrit 40.1 % (37-47); Lymphocyte # 2.97 X10^3/ul (0.83-4.51); Mean Corp Hgb Conc 32.4 g/dL (32-36); Mean Corpuscular Hgb 31.3 pg (27.0-32.0); Mean Corpuscular Volume 96.6 fL (81-99); Mean Platelet Vol. 9.5 fl (6.2-12.0); Monocyte# 0.99 X10^3/uL; Monocyte% 10.7 % (0-10); NRBC Flagged by Analyzer 0 % (0-5); Neutrophil # 5.09 X10^3/uL (2.7-7.7); Platelet Count 218 K/mm3 (150-450); RBC Distribution Width CV 13.7 % (11.6-14.6); RBC Distribution Width SD 49.2 fl (35.1-43.9); Red Blood Count 4.15 M/mm3 (4.2-5.4); White Blood Count 9.3 K/mm3 (4.4-11.0)
[2022-09-05 03:01] LABS: Partial Thromboplast Time 48.3 Seconds (24.1-36.2)
[2022-09-05 03:08] LABS: Anion Gap 6 (5-15); BUN 19 mg/dL (7-18); BUN/Creat Ratio 17.6 RATIO (10-20); Calcium,Total 9.6 mg/dL (8.5-10.1); Chloride 105 mmol/L (98-107); Creatinine, Serum 1.08 mg/dL (0.55-1.02); EST Glomerular Filtration Rate 57 mL/min (>60); Est Glom Filt Rate - Afr Amer 69 mL/min (>60); Estimated Creatinine Clearance 48.74 ml/min; Glucose 203 mg/dL (74-106); Potassium 3.8 mmol/L (3.5-5.1); Sodium Level 138 mmol/L (136-145)
[2022-09-05 05:05] VITALS: BP 136/78; PULSE 72; RESP 18; TEMP 36.3; O2SAT 96
[2022-09-05] MEDS: HEPARIN/D5w 25,000 UNITS 25,000 UNITS/250 ML IV.SOLN. 17 UNITS CONT INF (05:07)
[2022-09-05] MEDS: 0.9% Saline Lock 10 ML Syringe IV ×2 (05:07→09:21)
[2022-09-05 07:12] VITALS: O2SAT 95
[2022-09-05] MEDS: Gabapentin 300 MG Capsule PO ×2 (09:00→12:21)
[2022-09-05] MEDS: Pantoprazole Sodium 20 MG Tablet PO (09:20)
[2022-09-05] MEDS: buPROPion (XL) 300 MG TABLET.XL PO (09:21)
--- NOTE | 2022-09-05 09:40 | DCINST_ITS ---
Discharge Instructions Diet Discharge Diet: No restrictions Activity Discharge Activity: Return to Normal Activity Weight Bearing Status: Full weight bearing Follow Up Care Test Results: Test results from this visit will be discussed in further detail at your follow- up appointment, if applicable. Discharge Plan Admission Admit Date/Time: 09/04/22 13:25 Primary Reason for Your Visit: pulmonary embolism Attending Provider: Simone Bill Primary Care Provider: Care Physician,No Primary Consulting Providers: Sergey Colon Instructions Additional Instructions / Restrictions: Take only Tylenol for pain Discharge Orders/Prescriptions Prescriptions: New acetaminophen 325 mg Tablet 650 mg PO Q4H PRN PRN (Reason: Fever, pain 1-01/25) Qty: 0 0RF Eliquis 5 mg tablet 10 mg PO UD Qty: 74 0RF Rx Instructions: two twice a day starting today- for one week, then one twice a day thereafter Continued valacyclovir 1,000 MG tablet 1,000 mg PO DAILY aripiprazole lauroxil 882 MG/3.2 ML suspension,extended rel syring 882 mg IM QMONTH albuterol sulfate 1 INHALER inhaler 2 puff inhalation Q4H PRN PRN (Reason: Wheezing) Qty: 1 0RF gabapentin 300 MG capsule 300 mg PO TIDCM cholecalciferol (vitamin D3) 1,000 UNIT tablet 5,000 unit PO DAILY omeprazole 20 mg Tablet,Delayed Release (Dr/Ec) 20 mg PO DAILY bupropion HCl 300 mg tablet extended release 24 hr 300 mg PO DAILY Discontinued naproxen 500 MG tablet 500 mg PO BID PRN (Reason: Pain) Referrals / Follow Up: Eyad Robles MD [Non-Staff] - Raquel Wade [Non-Staff] - See Referral Note (call tomorrow-make appointment for 2 weeks) Care Physician,No Primary [Primary Care Provider] - Disposition Disposition (needs filled in before D/C Order can be placed): Home, Self Care
--- NOTE | 2022-09-05 09:48 | PCM.DC.SUM ---
Providers Date of Admission: 09/04/22 Date of Discharge: 09/05/22 Primary Care Physician: No Primary Care Phys Reason For Visit: PE WITH HEMOPTYSIS Diagnosis Discharge Diagnosis (1) Bilateral pulmonary embolism: Status: Acute Code(s): I26.99 - Other pulmonary embolism without acute cor pulmonale (2) Pulmonary infarction: Status: Acute Code(s): I26.99 - Other pulmonary embolism without acute cor pulmonale Plan 1. Bilateral pulmonary emboli #2 left pulmonary infarction #3 hypoxia secondary to #1 #4 morbid obesity #5 obstructive sleep apnea #6 bipolar disorder Medications at Discharge Home Medications valacyclovir 1 gram tablet 1,000 mg PO DAILY anti virus 08/12/18 albuterol sulfate 90 mcg/actuation aerosol inhaler 2 puff inhalation Q4H PRN PRN Wheezing ##1 09/12/18 aripiprazole lauroxil 882 mg/3.2 mL suspension, ext.rel. IM syringe 882 mg IM QMONTH mental health 09/12/18 cholecalciferol (vitamin D3) 25 mcg (1,000 unit) tablet 5,000 unit PO DAILY vitamin 07/02/20 gabapentin 300 mg capsule 300 mg PO TIDCM nerve pain 07/02/20 bupropion HCl 300 mg 24 hr tablet, extended release 300 mg PO DAILY mental health 09/04/22 omeprazole 20 mg tablet,delayed release 20 mg PO DAILY reflux 09/04/22 acetaminophen 325 mg tablet 650 mg PO Q4H PRN PRN Fever, pain 1-10/10 #0 tabs 09/05/22 apixaban 5 mg tablet (Eliquis) 10 mg PO UD #74 tabs 09/05/22 Hospital Course Operations None Procedures None Summary of Care Provided Minutes Spent on Discharge: 31 Hospital Course: This 51-year-old white female was seen in the emergency room at [facility] with a chief complaint of sharp pain in the upper left side of her back, she denied any anterior chest pain, she had been seen in the ER recently and diagnosed with acute bronchitis. Patient did complain of some mild dyspnea as well as blood-tinged sputum the night before she was seen in the ER, CBC was obtained which showed a slightly elevated white blood cell count, chest x-ray was performed which showed no acute process, D-dimer was obtained and this was elevated at 1.97. CT of the chest was performed which showed bilateral pulmonary emboli without evidence of heart strain, there was also noted to be a left lower lobe pulmonary infarction. The case was discussed with critical care and they advised that the patient should be placed in the hospital overnight on IV anticoagulants and observed due to her complaints of hemoptysis. Patient was placed on a heparin drip, she was placed in observation status on PCU and the following day, patient's oxygen was weaned off and she did not require oxygen on ambulation. She did not have any further complaints of mopped assist and it was felt that she was stable for discharge home. Etiology of her pulmonary emboli was unknown, I discussed the need for her to follow-up with a primary care doctor in order to perform more testing if it was necessary. On 09/05/2022, patient was seen and examined: On examination she appeared in good health and spirits, she does not appear to be in any distress. Patient is morbidly obese. Vital signs as documented. Skin warm and dry and without overt rashes. Neck without JVD, thyroid appears normal, trachea is midline, neck is supple. Lungs clear, normal air movement was noted. Heart exam notable for regular rhythm, normal sounds and absence of murmurs, rubs or gallops. Abdomen unremarkable and without evidence of organomegaly, masses, or abdominal aortic enlargement, bowel sounds are present in all 4 quadrants, no abdominal tenderness was noted. Extremities nonedematous, no cyanosis was noted, no clubbing was noted. Neuro: Cranial nerves II through XII are grossly intact, no focal motor deficits were noted, sensation to light touch and pinprick is intact, motor exam 5/5 throughout. Psych: Patient is alert and oriented x3, she does not appear anxious or depressed, she does not appear agitated. Patient was discharged home in stable condition on 09/05/2022. Patient required no oxygen at the time for discharge home. Weight / BMI Weight Weight: 125 kg Body Mass Index (BMI) 50.3 ABG / Lab / Microbiology Data Result Diagrams: 09/05/22 02:35 09/05/22 02:35 Laboratory: Laboratory Results - last 24 hr 09/04/22 10:30: WBC 12.2 H, RBC 4.63, Hgb 14.4, Hct 44.3, MCV 95.7, MCH 31.1, MCHC 32.5, RDW Std Deviation 47.8 H, RDW Coeff of Serafin 13.6, Plt Count 250, MPV 10.1, Immature Gran % (Auto) 0.800, Neut % (Auto) 66.6, Lymph % (Auto) 24.5, [place] % (Auto) 7.2, Eos % (Auto) 0.5, Baso % (Auto) 0.4, Absolute Neuts (auto) 8.1 H, Absolute Lymphs (auto) 2.99, Nucleated RBC % 0 09/04/22 10:30: D-Dimer Quant (PE/DVT) 1.97 H* 09/04/22 10:30: Sodium 137, Potassium 4.2, Chloride 98, Carbon Dioxide 30.0, Anion Gap 9, BUN 14, Creatinine 1.19 H, Estim Creat Clear Calc 44.24, Est GFR (MDRD) Af Amer 61, Est GFR (MDRD) Non-Af 51 L, BUN/Creatinine Ratio 11.8, Glucose 294 H, Calcium 9.8, Troponin I High Sens 15 09/04/22 10:30: B-Natriuretic Peptide 27.1 09/04/22 10:30: PT 12.0, INR 0.9, APTT 27.2 09/04/22 19:40: APTT 87.9 H 09/05/22 02:35: Sodium 138, Potassium 3.8, Chloride 105, Carbon Dioxide 27.0, Anion Gap 6, BUN 19 H, Creatinine 1.08 H, Estim Creat Clear Calc 48.74, Est GFR (MDRD) Af Amer 69, Est GFR (MDRD) Non-Af 57 L, BUN/Creatinine Ratio 17.6, Glucose 203 H, Calcium 9.6 09/05/22 02:35: WBC 9.3, RBC 4.15 L, Hgb 13.0, Hct 40.1, MCV 96.6, MCH 31.3, MCHC 32.4, RDW Std Deviation 49.2 H, RDW Coeff of Serafin 13.7, Plt Count 218, MPV 9.5, Immature Gran % (Auto) 0.600, Neut % (Auto) 55.0, Lymph % (Auto) 32.0, [place] % (Auto) 10.7 H, Eos % (Auto) 1.1, Baso % (Auto) 0.6, Absolute Neuts (auto) 5.1, Absolute Lymphs (auto) 2.97, Nucleated RBC % 0 09/05/22 02:35: APTT 48.3 H Radiography Diagnostic Testing: Radiology Impression Chest X-Ray 09/04/22 10:50 IMPRESSION: No acute cardiopulmonary abnormality. Electronically Signed: Tapan Otero MD at 12:11 EDT Reading Location ID and State: [facility] / [place] Tel , Service support , Chest CTA 09/04/22 11:35 IMPRESSION: 1. Bilateral acute pulmonary embolism without evidence of right heart strain. 2. Left lower lobe pulmonary density suggestive of infarction. N.B. : The above Results were Read Back by Tapan Otero MD to Rad Masters DO, and understanding confirmed on 09/04/2022 12:44:50 (ET). Electronically Signed: Tapan Otero MD at 12:47 EDT , ADDENDUM: 09/04/22 1254 IMPRESSION: 1. Bilateral acute pulmonary embolism without evidence of right heart strain. 2. Left lower lobe pulmonary density suggestive of infarction. N.B. : The above Results were Read Back by Tapan Otero MD to Rad Masters DO, and understanding confirmed on 09/04/2022 12:44:50 (ET). Electronically Signed: Tapan Otero MD at 12:47 EDT , D/C Instructions Discharge Diet: No restrictions Weight Bearing Status: Full weight bearing Meaningful Use Info Meaningful Use Diagnoses (Choose all that apply): VTE VTE Anticoag overlap given w/in hospital stay or rx'd at dc?: No Pt receive overlap for 5 days?: No Reason overlap not ordered, prescribed, or given for 5 days: Treatment Not Indicated Discharge Plan Admission Admit Date/Time: 09/04/22 13:25 Primary Reason for Your Visit: pulmonary embolism Attending Provider: Simoen Bill Primary Care Provider: Care Physician,No Primary Consulting Providers: Sergey Colon Instructions Additional Instructions / Restrictions: Take only Tylenol for pain Discharge Orders/Prescriptions Prescriptions: New acetaminophen 325 mg Tablet 650 mg PO Q4H PRN PRN (Reason: Fever, pain 1-01/25) Qty: 0 0RF Eliquis 5 mg tablet 10 mg PO UD Qty: 74 0RF Rx Instructions: two twice a day starting today- for one week, then one twice a day thereafter Continued valacyclovir 1,000 MG tablet 1,000 mg PO DAILY aripiprazole lauroxil 882 MG/3.2 ML suspension,extended rel syring 882 mg IM QMONTH albuterol sulfate 1 INHALER inhaler 2 puff inhalation Q4H PRN PRN (Reason: Wheezing) Qty: 1 0RF gabapentin 300 MG capsule 300 mg PO TIDCM cholecalciferol (vitamin D3) 1,000 UNIT tablet 5,000 unit PO DAILY omeprazole 20 mg Tablet,Delayed Release (Dr/Ec) 20 mg PO DAILY bupropion HCl 300 mg tablet extended release 24 hr 300 mg PO DAILY Discontinued naproxen 500 MG tablet 500 mg PO BID PRN (Reason: Pain) Referrals / Follow Up: Eyad Robles MD [Non-Staff] - Raquel Wade [Non-Staff] - See Referral Note (call tomorrow-make appointment for 2 weeks) Care Physician,No Primary [Primary Care Provider] - Disposition Disposition (needs filled in before D/C Order can be placed): Home, Self Care Charges/Coding Visit Charges Inpatient E&M: 39858 Disch Hosp >30min
[2022-09-05] MEDS: Cholecalciferol (Vit D3) 125 MCG CAPSULE (5,000 UNITS) PO (09:49)
[2022-09-05 09:58] VITALS: O2SAT 91; O2SAT 92
[2022-09-05 10:00] VITALS: BP 148/74; PULSE 80; RESP 18; TEMP 36.5; O2SAT 92
[2022-09-05 14:10] VITALS: BP 137/72; PULSE 82; RESP 18; TEMP 36.6; O2SAT 93
== END 2022-09-05 14:10 | disposition home or self-care (01) ==
LOC: ED 13:28 → PCU 14:11
PROVIDERS: Admitting Provider Family Medicine; Emergency Provider Student in an Organized Health Care Education/Training Program; Visit Provider Internal Medicine
DX: I26.99 Other pulmonary embolism without acute cor pulmonale (principal); F31.9 Bipolar disorder, unspecified; E66.01 Morbid (severe) obesity due to excess calories; Z68.43 Body mass index [BMI] 50.0-59.9, adult; F17.210 Nicotine dependence, cigarettes, uncomplicated; G89.29 Other chronic pain; R04.2 Hemoptysis; Z79.899 Other long term (current) drug therapy; Z79.01 Long term (current) use of anticoagulants; R06.09 Other forms of dyspnea
CPT/HCPCS: 36415; 71045; 71275; 80048; 83880; 84484; 85025; 85379; 85610; 85730; 93005; 96365; 96366; 96376; 99285; 99406; Q9967; A4216; J3490

== ENCOUNTER 2022-09-24 12:51 | Emergency (ER) | payer MEDICARE, MEDICAID, SELFPAY ==
[2022-09-24 12:51] VITALS: BP 159/105; PULSE 107; RESP 20; TEMP 37; O2SAT 94; BMI 50.6
--- NOTE | 2022-09-24 14:17 | EKG12_ITS ---
Test Reason : SOB/CHEST PAIN Blood Pressure : / mmHG Vent. Rate : 089 BPM Atrial Rate : 089 BPM P-R Int : 122 ms QRS Dur : 096 ms QT Int : 378 ms P-R-T Axes : 038 -47 107 degrees QTc Int : 459 ms Normal sinus rhythm Left anterior fascicular block Left ventricular hypertrophy with repolarization abnormality ( R in aVL , Pascual product , Romhilt-E stes ) Abnormal ECG Confirmed by CHICHI DELA CRUZ, VEL ([id number]), greeting card editor PRABHAKAR CASON ([id number]) on 09/27/2022 1:38:43 PM Referred By: Confirmed By:VEL CADET MD
--- NOTE | 2022-09-24 14:18 | EDS_ITS ---
HPI History of Present Illness Chief Complaint: Shortness of Breath Informant: patient Narrative Narrative: Patient was diagnosed with bilateral pulmonary emboli recently, she was admitted to the hospital anticoagulated and discharged about 2 weeks ago, she has been having dyspnea with exertion ever since but states it has been gradually getting worse to the point now where it is severe with light exertion. Resting makes everything better and she is breathing well at rest. She is also having pain in her thighs whenever she stands, that is not exertional/claudication, and it is more laterally just distal to her hips. She denies any numbness or tingling or swelling distally in her legs. She sometimes gets some pain in her left upper back and rib cage area when she is very short of breath, again not new but all of the symptoms have been worsening and she was concerned. No syncopal episodes, no palpitations, no maninder chest discomfort with exertion. [facility] Medical History Acute respiratory failure Anxiety Bilateral pulmonary embolism Bipolar disorder Cellulitis and abscess of neck Chronic back pain Bahman's angina Non-healing surgical wound Pulmonary infarction Tobacco abuse Upper airway obstruction Home Medications valacyclovir 1 gram tablet 1,000 mg PO DAILY anti virus 08/12/18 [History Last Taken Unknown] albuterol sulfate 90 mcg/actuation aerosol inhaler 2 puff inhalation Q4H PRN PRN Wheezing ##1 09/12/18 [Rx Last Taken Unknown] aripiprazole lauroxil 882 mg/3.2 mL suspension, ext.rel. IM syringe 882 mg IM QMONTH [facility] 09/12/18 [History Last Taken Unknown] cholecalciferol (vitamin D3) 25 mcg (1,000 unit) tablet 5,000 unit PO DAILY vitamin 07/02/20 [History Last Taken Unknown] gabapentin 300 mg capsule 300 mg PO TIDCM nerve pain 07/02/20 [History Last Taken Unknown] bupropion HCl 300 mg 24 hr tablet, extended release 300 mg PO DAILY mental health 09/04/22 [History Last Taken Unknown] omeprazole 20 mg tablet,delayed release 20 mg PO DAILY reflux 09/04/22 [History Last Taken Unknown] acetaminophen 325 mg tablet 650 mg PO Q4H PRN PRN Fever, pain 1-10 #0 tabs 09/05/22 [Rx Last Taken Unknown] apixaban 5 mg tablet (Eliquis) 10 mg PO UD #74 tabs 09/05/22 [Rx Last Taken Unknown] albuterol sulfate 90 mcg/actuation aerosol inhaler (Ventolin HFA) 1 - 2 puff inhalation Q4H PRN PRN Wheezing ##1 09/24/22 [Rx Last Taken Unknown] Allergy/AdvReac Type Severity Reaction Status Date / Time prednisone AdvReac Other Verified 09/24/22 14:18 Sulfa (Sulfonamide AdvReac Rash Verified 09/24/22 14:18 Antibiotics) Surgical History History of adenoidectomy History of cholecystectomy Social History Smoking Status: Current every day smoker tobacco type: cigarettes Tobacco: How many years used: 30 second hand exposure: Yes alcohol intake: current alcohol intake frequency: holidays/special occasions only substance use type: does not use ROS ROS ED Constitutional Constitutional ED: Denies chills or fever(s) Eyes Eyes: Denies change in vision or diplopia ENT ENT ED: Denies rhinorrhea or sore throat Cardiovascular Cardiovascular: Reports as per HPI and chest pain; Denies palpitations Respiratory/Chest Respiratory/Chest: Reports dyspnea and dyspnea on exertion; Denies cough Gastrointestinal Gastrointestinal: Denies abdominal pain, diarrhea, nausea or vomiting Genitourinary Genitourinary ED: Denies dysuria or hematuria Musculoskeletal Musculoskeletal: Reports as per HPI and extremity pain; Denies back pain or neck pain Integumentary Denies abscess or rash Neurologic Neurologic: Denies headache(s), paresthesias or weakness Psychiatric Psychiatric: Denies anxiety or suicidal thoughts EXAM Physical Exam Const Vital Signs: 09/24/22 12:51 09/24/22 14:21 09/24/22 14:54 Temperature 98.6 F Temperature Source Temporal Pulse Rate 107 H 88 Respiratory Rate 20 H 18 Respiratory Effort Short of Breath Labored Accessory Muscle Use Respiratory Depth Shallow Respiratory Pattern Tachypnea Blood Pressure 159/105 H Blood Pressure Mean 123 Pulse Ox 94 Oxygen Delivery Method Room Air Room Air 09/24/22 16:08 Temperature Temperature Source Pulse Rate 84 Respiratory Rate 23 H Respiratory Effort Respiratory Depth Respiratory Pattern Blood Pressure 136/74 H Blood Pressure Mean 94 Pulse Ox 94 Oxygen Delivery Method Room Air Positive well nourished and well developed General Appearance ED: well developed and NAD HEENT Reports moist mucous membranes normocephalic and atraumatic Eyes PERRL and EOMs intact bilaterally Neck full ROM and supple Resp normal respiratory effort Resp Narrative: End expiratory wheezes bilaterally equal breath sounds bilaterally, somewhat diminished throughout. Speaking in full sentences no respiratory distress. Cardio regular rate, regular rhythm and no murmurs GI non-tender and non-distended Auscultation: normoactive bowel sounds Palpation: soft Back/Spine no CVA tenderness General Back: other FROM Extremity normal to inspection General Extremety ED: Negative for edema, pulses abnormal or tenderness General Extremity: Negative for edema or pulses abnormal Neuro oriented x3, CN's II-XII intact bilaterally and no sensory deficits noted Sensorium / Orientation: awake and alert Motor Exam: strength 5/5 throughout Skin no rashes or lesions noted and no wounds MDM MDM MDM Narrative Medical decision making narrative: patient anticoagulated recently with bilateral pulmonary emboli, she is not hypoxic now, she is not having what sounds like angina, chest left-sided chest discomfort when she exerts herself, which is where she has a pulmonary infarct on the prior CT, we see that on our two-view x-ray here. That is probably related to that. She had no right heart strain on her prior CT, she did not have an echocardiogram here when she was admitted. She did have hemoptysis, that is resolved now. Her labs are essentially normal with a normal troponin, and she has no other acute abnormalities on x-ray. While we were awaiting this work-up, we gave her a duo nebulizer treatment and then ambulated her, she did say it helped some and she was not hypoxic at any point even with ambulation. Given all of this I think she is safe to be discharged home to follow-up. She does not require reevaluation with CT angiography at this time. I did have discussion with Dr. Shea with pulmonary, she had followed up with Dr. Oreilly once in the past, and when she was admitted this past couple weeks, although she has not officially been given the diagnosis of COPD, it was on her H&P as stable. If we are going to have the patient follow-up with pulmonary for PFTs and further evaluation for the possibility of developing COPD since she is a heavy smoker for a long time, he recommends that we try to avoid prednisone which I think the patient is going to be able to do. I am prescribing her an albuterol MDI which she is comfortable with doing and using as needed we discussed reasons to return she comfortable with this plan. History & Record Review Additional record(s) reviewed:: Prior inpatient record, Prior ED visit and Prior labs (And imaging) Lab Data Attestation: I reviewed the patient's lab results. Labs: Laboratory Results - last 24 hr 09/24/22 09/24/22 14:31 14:31 WBC 10.6 RBC 4.74 Hgb 14.2 Hct 43.7 MCV 92.2 MCH 30.0 MCHC 32.5 RDW Std Deviation 45.7 H RDW Coeff of Serafin 13.3 Plt Count 366 MPV 8.7 Immature Gran % (Auto) 1.100 H Neut % (Auto) 58.2 Lymph % (Auto) 33.6 [facility] % (Auto) 5.3 Eos % (Auto) 1.0 Baso % (Auto) 0.8 Absolute Neuts (auto) 6.2 Absolute Lymphs (auto) 3.56 Nucleated RBC % 0 Sodium 135 L Potassium 4.2 Chloride 102 Carbon Dioxide 27.0 Anion Gap 6 BUN 24 H Creatinine 1.03 H Estim Creat Clear Calc 50.53 Est GFR (MDRD) Af Amer 72 Est GFR (MDRD) Non-Af 60 BUN/Creatinine Ratio 23.3 H Glucose 231 H Calcium 10.3 H Troponin I High Sens 29 Radiography Chest X-Ray - ED: 2 View, Read by ED Physician, No Infiltrates and - (Small left pulmonary infarct noted) Diagnostic Testing: Clinical Impression(s) from Imaging Studies Chest X-Ray 09/24/22 14:38 IMPRESSION: Left lower lobe consolidation from pneumonia or pulmonary infarct. 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 Discharge Plan Triage Chief Complaint: Shortness of Breath ED Provider: Pipe Liu Dx/Rx/DC Orders Clinical Impression: WRIGHT (dyspnea on exertion), Tobacco abuse, Bilateral wheezing, Bilateral pulmonary embolism, Anticoagulated Instructions: Smoking Get Help to Quit, ED Dyspnea Prescriptions: New albuterol sulfate [Ventolin HFA] 90 mcg/actuation HFA aerosol inhaler 1 - 2 puff inhalation Q4H PRN PRN (Reason: Wheezing) Qty: 1 0RF No Action valacyclovir 1,000 MG tablet 1,000 mg PO DAILY aripiprazole lauroxil 882 MG/3.2 ML suspension,extended rel syring 882 mg IM QMONTH albuterol sulfate 1 INHALER inhaler 2 puff inhalation Q4H PRN PRN (Reason: Wheezing) Qty: 1 0RF gabapentin 300 MG capsule 300 mg PO TIDCM cholecalciferol (vitamin D3) 1,000 UNIT tablet 5,000 unit PO DAILY omeprazole 20 mg Tablet,Delayed Release (Dr/Ec) 20 mg PO DAILY bupropion HCl 300 mg tablet extended release 24 hr 300 mg PO DAILY acetaminophen 325 mg Tablet 650 mg PO Q4H PRN PRN (Reason: Fever, pain 1-01/25) Qty: 0 0RF Eliquis 5 mg tablet 10 mg PO UD Qty: 74 0RF Rx Instructions: two twice a day starting today- for one week, then one twice a day thereafter [facility] Referrals: Lorne Shea MD [Med Staff - Active Staff] - (call for appt) [facility] - Disposition Disposition: Home, Self Care
[2022-09-24 14:21] VITALS: O2SAT 95
--- NOTE | 2022-09-24 14:38 | RAD_ITS ---
HISTORY: dyspnea. TECHNIQUE: XR Chest 2 Views. COMPARISON: 09/04/2022. FINDINGS: CARDIOMEDIASTINAL BORDERS: Cardiac silhouette within normal limits in size. Mediastinal contour unchanged with prominence of the central pulmonary arteries. LUNGS: Left lower lobe consolidation. PLEURA: No pleural effusion or pneumothorax seen. OSSEOUS STRUCTURES: Unremarkable. RAD/Chest PA and Lateral IMPRESSION: Left lower lobe consolidation from pneumonia or pulmonary infarct. Electronically Signed: Maggie Childers MD at 15:07 EDT ,
[2022-09-24 14:39] LABS: Absolute Lymphocyte Count 3.56 X10^3/uL (0.83-4.51); Absolute Neutrophil Count 6.2 X10^3/uL (2.0-7.7); Basophil# 0.08 X10^3/uL; Basophil% 0.8 % (0-1); Eosinophil# 0.11 X10^3/uL; Hematocrit 43.7 % (37-47); Hemoglobin 14.2 g/dL (12.0-15.0); Lymphocyte # 3.56 X10^3/ul (0.83-4.51); Lymphocyte % 33.6 % (19-41); Mean Corp Hgb Conc 32.5 g/dL (32-36); Mean Corpuscular Volume 92.2 fL (81-99); Mean Platelet Vol. 8.7 fl (6.2-12.0); Monocyte# 0.56 X10^3/uL; Monocyte% 5.3 % (0-10); NRBC Flagged by Analyzer 0 % (0-5); Neutrophil # 6.15 X10^3/uL (2.7-7.7); Neutrophil % 58.2 % (47-70); Platelet Count 366 K/mm3 (150-450); RBC Distribution Width CV 13.3 % (11.6-14.6); RBC Distribution Width SD 45.7 fl (35.1-43.9); Red Blood Count 4.74 M/mm3 (4.2-5.4); White Blood Count 10.6 K/mm3 (4.4-11.0)
[2022-09-24] MEDS: Ipratropium/Albuterol Sulfate 3 ML AMPUL.NEB INHALATION (14:53)
[2022-09-24 14:54] VITALS: PULSE 88; RESP 18
[2022-09-24 15:04] LABS: Anion Gap 6 (5-15); BUN 24 mg/dL (7-18); BUN/Creat Ratio 23.3 RATIO (10-20); Calcium,Total 10.3 mg/dL (8.5-10.1); Chloride 102 mmol/L (98-107); Creatinine, Serum 1.03 mg/dL (0.55-1.02); EST Glomerular Filtration Rate 60 mL/min (>60); Est Glom Filt Rate - Afr Amer 72 mL/min (>60); Estimated Creatinine Clearance 50.53 ml/min; Glucose 231 mg/dL (74-106); Potassium 4.2 mmol/L (3.5-5.1); Sodium Level 135 mmol/L (136-145); Troponin-I HS 29 pg/mL (3.0-54.0)
[2022-09-24 15:10] VITALS: O2SAT 93
[2022-09-24 16:08] VITALS: BP 136/74; PULSE 84; RESP 23; O2SAT 94
[2022-09-24 17:55] VITALS: BP 159/91; PULSE 87; RESP 18; O2SAT 98
== END 2022-09-24 17:59 | disposition home or self-care (01) ==
PROVIDERS: Emergency Provider Emergency Medicine; Visit Provider Emergency Medicine
DX: I26.99 Other pulmonary embolism without acute cor pulmonale (principal); F17.210 Nicotine dependence, cigarettes, uncomplicated; Z79.01 Long term (current) use of anticoagulants
CPT/HCPCS: 71046; 80048; 84484; 85025; 93005; 94640; 99284; A4216

== ENCOUNTER → 2022-09-29 | Outpatient (CLI) | payer MEDICARE, MEDICAID, SELFPAY | END | disposition home or self-care (01) | DX: Z86.711 Personal history of pulmonary embolism (principal) | CPT/HCPCS: 36415 ==

== ENCOUNTER → 2022-10-08 | Outpatient (CLI) | payer MEDICARE, MEDICAID, SELFPAY | END | disposition home or self-care (01) | LOC: SL 20:25 | PROVIDERS: Referring Provider Internal Medicine Critical Care Medicine; Visit Provider Internal Medicine Critical Care Medicine | DX: G47.10 Hypersomnia, unspecified (principal) | CPT/HCPCS: 95810 ==

== ENCOUNTER → 2022-10-11 | Outpatient (CLI) | payer MEDICARE, MEDICAID, SELFPAY ==
[2022-10-11 08:14] LABS: Absolute Lymphocyte Count 2.39 X10^3/uL (0.83-4.51); Absolute Neutrophil Count 6.1 X10^3/uL (2.0-7.7); Basophil# 0.07 X10^3/uL; Basophil% 0.7 % (0-1); Eosinophil# 0.09 X10^3/uL; Eosinophils% 0.9 % (0-5); Hematocrit 41.1 % (37-47); Lymphocyte # 2.39 X10^3/ul (0.83-4.51); Lymphocyte % 24.6 % (19-41); Mean Corp Hgb Conc 31.6 g/dL (32-36); Mean Corpuscular Hgb 29.7 pg (27.0-32.0); Mean Corpuscular Volume 94.1 fL (81-99); Mean Platelet Vol. 9.2 fl (6.2-12.0); Monocyte# 0.87 X10^3/uL; NRBC Flagged by Analyzer 0 % (0-5); Neutrophil # 6.14 X10^3/uL (2.7-7.7); Neutrophil % 63.4 % (47-70); Platelet Count 389 K/mm3 (150-450); RBC Distribution Width SD 48.7 fl (35.1-43.9); Red Blood Count 4.37 M/mm3 (4.2-5.4); White Blood Count 9.7 K/mm3 (4.4-11.0)
[2022-10-11 08:31] LABS: Vitamin D,25 Hydroxy 54.3 ng/mL
[2022-10-11 08:36] LABS: Hemoglobin A1c 9.2 % (3.8-5.6)
[2022-10-11 08:41] LABS: ALB/GLOB Ratio 0.6 RATIO (0.9-2.4); AST(SGOT) 9 U/L (15-37); Alanine Aminotransfer ALT/SGPT 17 U/L (13-56); Alkaline Phosphatase 97 U/L (45-117); Anion Gap 8 (5-15); BUN 14 mg/dL (7-18); BUN/Creat Ratio 11.2 RATIO (10-20); Calcium,Total 9.3 mg/dL (8.5-10.1); Chloride 100 mmol/L (98-107); Cholesterol 169 mg/dL (200); Creatinine, Serum 1.25 mg/dL (0.55-1.02); EST Glomerular Filtration Rate 48 mL/min (>60); Est Glom Filt Rate - Afr Amer 58 mL/min (>60); Globulin 4.9 g/dL (2.2-4.2); Glucose 400 mg/dL (74-106); High Density Lipoprotein 40 mg/dL; Potassium 4.2 mmol/L (3.5-5.1); Protein, Total 7.9 g/dL (6.4-8.2); Sodium Level 132 mmol/L (136-145); Triglycerides 212 mg/dL; Very Low Density Lipoprotein 42 mg/dL (5-40)
== END | disposition home or self-care (01) ==
DX: R63.1 Polydipsia (principal); E66.01 Morbid (severe) obesity due to excess calories; E55.9 Vitamin D deficiency, unspecified; Z86.711 Personal history of pulmonary embolism
CPT/HCPCS: 36415; 80053; 80061; 82306; 83036; 84443; 85025

== ENCOUNTER → 2022-11-11 | Outpatient (CLI) | payer MEDICAID, SELFPAY | END | disposition home or self-care (01) | LOC: SL 20:09 | PROVIDERS: PCP Nurse Practitioner Family; Referring Provider Nurse Practitioner Acute Care; Visit Provider Nurse Practitioner Acute Care | DX: G47.33 Obstructive sleep apnea (adult) (pediatric) (principal) | CPT/HCPCS: 95811 ==

== ENCOUNTER → 2022-11-25 | Outpatient (CLI) | payer MEDICARE, MEDICAID, SELFPAY ==
[2022-11-25 11:59] VITALS: PULSE 100; PULSE 103; PULSE 110; PULSE 118; PULSE 124; PULSE 125; PULSE 128; PULSE 130; O2SAT 93; O2SAT 94; O2SAT 95; O2SAT 96; O2SAT 97
--- NOTE | 2022-11-25 12:04 | CPS ---
TESTING DONE ON RA. PT SLIGHTLY ANXIOUS ABOUT WALK TEST. SHE RELAXED ONCE TESTING EXPLAINED. HR DID INCREASE >20BPM DURING TESTING AND RETURNED TO BASELINE SHORTLY AFTER RESTING. A TOTAL OF 4 SHORT REST PERIODS TAKEN BY PT FOR INCREASED WOB.
--- NOTE | 2022-11-26 10:14 | PCM.PSN.6M ---
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 Assistive device used: None Pre-test Oxygen Delivery Method Room Air Pulse Ox 94 Pulse Rate (60-100) 100 Dyspnea Kely Scale (0-10) 2 1st minute Oxygen Delivery Method Room Air Pulse Ox 96 Pulse Rate (60-100) 110 H Dyspnea Kely Scale (0-10) 3 Number of Rests Taken 0 Reported Symptoms Increased Work of Breathing 2nd minute Oxygen Delivery Method Room Air Pulse Ox 94 Pulse Rate (60-100) 118 H Dyspnea Kely Scale (0-10) 4 Number of Rests Taken 1 Reported Symptoms Increased Work of Breathing 3rd minute Oxygen Delivery Method Room Air Pulse Ox 93 Pulse Rate (60-100) 125 H Dyspnea Kely Scale (0-10) 5 Number of Rests Taken 1 Reported Symptoms Increased Work of Breathing 4th minute Oxygen Delivery Method Room Air Pulse Ox 94 Pulse Rate (60-100) 128 H Dyspnea Kely Scale (0-10) 5 Number of Rests Taken 1 Reported Symptoms Increased Work of Breathing 5th minute Oxygen Delivery Method Room Air Pulse Ox 95 Pulse Rate (60-100) 124 H Dyspnea Kely Scale (0-10) 5 Number of Rests Taken 1 Reported Symptoms Increased Work of Breathing 6th minute Oxygen Delivery Method Room Air Pulse Ox 96 Pulse Rate (60-100) 130 H Dyspnea Kely Scale (0-10) 5 Number of Rests Taken 0 Reported Symptoms Increased Work of Breathing Post-test Oxygen Delivery Method Room Air Pulse Ox 97 Pulse Rate (60-100) 103 H Dyspnea Kely Scale (0-10) 2 Full Laps Walked 10 Partial Lap, Number of Tiles Walked 27 Total Distance Walked (ft) 617 11/25/22 12:04 [facility] by Oleg[facility] TESTING DONE ON RA. PT SLIGHTLY ANXIOUS ABOUT WALK TEST. SHE RELAXED ONCE TESTING EXPLAINED. HR DID INCREASE >20BPM DURING TESTING AND RETURNED TO BASELINE SHORTLY AFTER RESTING. A TOTAL OF 4 SHORT REST PERIODS TAKEN BY PT FOR INCREASED WOB. Initialized on 11/25/22 12:04 - END OF NOTE Interpretation Interpretation: The patient ambulated 617 feet over the course of 6 minutes beginning on room air without assistive devices. Pretesting oxygen saturation was noted to be 94% on room air. With ambulation, the enrie oxygen saturation was 93%. Although there was evidence of impaired walk distance, there was no significant exertional oxygen desaturation. Recommendations Recommendations: There is no indication for the use of supplemental oxygen at this time.
== END | disposition home or self-care (01) ==
PROVIDERS: Referring Provider Internal Medicine Critical Care Medicine; Visit Provider Internal Medicine Critical Care Medicine
DX: R06.09 Other forms of dyspnea (principal)
CPT/HCPCS: 94618

== ENCOUNTER → 2022-12-24 | Outpatient (CLI) | payer MEDICAID, SELFPAY ==
--- NOTE | 2022-12-24 11:26 | PFT ---
INTRODUCTION: The patient is a 52-year-old female who presents for pulmonary function studies secondary to a diagnosis of dyspnea. Respiratory therapy reported good patient effort. Bronchodilators were used during testing. INTERPRETATION: Forced expiration spirometry demonstrates the presence of a moderate large airways obstructive ventilatory defect. There was no significant response to aerosolized bronchodilators. Body plethysmography was performed and revealed lung volumes to be within normal limits. Diffusing capacity by single breath CO was within normal limits. IMPRESSION: Irreversible moderate large airways obstructive ventilatory defect with preserved lung volumes and diffusion capacity.
== END | disposition home or self-care (01) ==
PROVIDERS: PCP Nurse Practitioner Family; Referring Provider Internal Medicine Critical Care Medicine; Visit Provider Internal Medicine Critical Care Medicine
DX: R06.09 Other forms of dyspnea (principal); G47.33 Obstructive sleep apnea (adult) (pediatric)
CPT/HCPCS: 94060; 94726; 94729; 98960; G0463

== ENCOUNTER 2023-05-27 09:24 | Inpatient (IN) | payer MEDICARE, MEDICAID, SELFPAY ==
[2023-05-27] VITALS (16 sets, daily range): BP systolic 137–193; BP diastolic 77–142; PULSE 70–108; RESP 16–40; TEMP 36.1–38.8; O2SAT 89–95; BMI 50.3; BMI 51.7
--- NOTE | 2023-05-27 09:56 | ED.VIS.DYS ---
HPI History of Present Illness Chief Complaint: Shortness of Breath Informant: patient and EMS Narrative Narrative: Patient started having cough and shortness of breath yesterday worse this morning. EMS put her on oxygen which helped. She has COPD without the need for home oxygen. No treatments were given she has albuterol at home but did not try using it. She states she has had some lung burning, but no chest pain otherwise. She denies any swelling in her legs, orthopnea, fevers, chills, headaches, body aches. I do not feel like I have the flu. No history of heart problems that she knows of. [facility] Medical History Acute respiratory failure Anxiety Bilateral pulmonary embolism Bipolar disorder Cellulitis and abscess of neck Chronic back pain Bahman's angina Non-healing surgical wound Pulmonary infarction Tobacco abuse Upper airway obstruction Home Medications valacyclovir 1 gram tablet 1,000 mg PO DAILY anti virus 08/12/18 [History Last Taken 05/26/23] aripiprazole lauroxil 882 mg/3.2 mL suspension, ext.rel. [facility] [History Last Taken 05/18/23] cholecalciferol (vitamin D3) 25 mcg (1,000 unit) tablet 5,000 unit PO DAILY vitamin 07/02/20 [History Last Taken 05/26/23] gabapentin 300 mg capsule 300 mg PO TIDCM nerve pain 07/02/20 [History Last Taken 05/26/23] bupropion HCl 300 mg 24 hr tablet, extended release 300 mg PO DAILY mental health 09/04/22 [History Last Taken 05/26/23] omeprazole 20 mg tablet,delayed release 20 mg PO DAILY reflux 09/04/22 [History Last Taken 05/26/23] acetaminophen 325 mg tablet 650 mg (2 x 325 mg) PO Q4H PRN PRN Fever, pain 1-01/25 #0 tabs 09/05/22 [Rx Last Taken 05/26/23] albuterol sulfate 90 mcg/actuation aerosol inhaler (Ventolin HFA) 1 - 2 puff inhalation Q4H PRN PRN Wheezing ##1 09/24/22 [Rx Last Taken Unknown] apixaban 5 mg tablet (Eliquis) 5 mg PO Q12H 05/27/23 [History Last Taken Unknown] tirzepatide 5 mg/0.5 mL subcutaneous pen injector (Mounjaro) 5 mg subcut QWEEK 05/27/23 [History Last Taken 05/20/23] Allergy/AdvReac Type Severity Reaction Status Date / Time prednisone AdvReac Other Verified 05/27/23 09:25 Sulfa (Sulfonamide AdvReac Rash Verified 05/27/23 09:25 Antibiotics) Surgical History History of adenoidectomy History of cholecystectomy Social History Smoking Status: Current every day smoker tobacco type: cigarettes Tobacco: How many years used: 30 second hand exposure: Yes alcohol intake: current alcohol intake frequency: holidays/special occasions only substance use type: does not use ROS ROS ED Constitutional Constitutional ED: Denies chills or fever(s) Eyes Eyes: Denies change in vision or diplopia ENT ENT ED: Denies rhinorrhea or sore throat Cardiovascular Cardiovascular: Reports chest pain; Denies palpitations Respiratory/Chest Respiratory/Chest: Reports cough and dyspnea Gastrointestinal Gastrointestinal: Denies abdominal pain, diarrhea, nausea or vomiting Genitourinary Genitourinary ED: Denies dysuria or hematuria Musculoskeletal Musculoskeletal: Denies back pain or neck pain Integumentary Denies abscess or rash Neurologic Neurologic: Denies headache(s), paresthesias or weakness Psychiatric Psychiatric: Denies suicidal ideation or suicidal thoughts EXAM Physical Exam Const Vital Signs: 05/27/23 09:25 05/27/23 10:04 05/27/23 09:55 Temperature 97.8 F Temperature Source Temporal Pulse Rate 89 82 Respiratory Rate 40 H 24 H Respiratory Effort Respiratory Depth Respiratory Pattern Tachypnea Blood Pressure 180/105 H Blood Pressure Mean 130 Pulse Ox 90 93 Oxygen Delivery Method Room Air Nasal Cannula Oxygen Flow Rate (L/min) 2 05/27/23 11:18 05/27/23 11:19 Temperature Temperature Source Pulse Rate 88 Respiratory Rate 16 Respiratory Effort Short of Breath Respiratory Depth Shallow Respiratory Pattern Tachypnea Blood Pressure 193/93 H Blood Pressure Mean 126 Pulse Ox 95 Oxygen Delivery Method Nasal Cannula Nasal Cannula Oxygen Flow Rate (L/min) 2 2 Positive well nourished, well developed and obese General Appearance ED: well developed and NAD Nutritional Appearance: obese HEENT Reports moist mucous membranes normocephalic and atraumatic Eyes PERRL and EOMs intact bilaterally Neck full ROM, supple and no JVD Resp clear to auscultation bilaterally Resp Narrative: A little tachypneic but in no respiratory distress. No accessory muscle use. Diffusely diminished, but symmetrically so, and no adventitious breath sounds. Speaking in full sentences. Cardio regular rate, regular rhythm and no murmurs GI non-tender and non-distended Auscultation: normoactive bowel sounds Palpation: soft Back/Spine no CVA tenderness General Back: other FROM Extremity normal to inspection General Extremety ED: Negative for edema, pulses abnormal or tenderness General Extremity: Negative for edema or pulses abnormal Neuro oriented x3, CN's II-XII intact bilaterally and no sensory deficits noted Sensorium / Orientation: awake and alert Motor Exam: strength 5/5 throughout Skin no rashes or lesions noted and no wounds MDM MDM MDM Narrative Medical decision making narrative: Swabs negative for COVID and RSV positive for influenza A. Duo nebulizer treatment did help some, chest x-ray shows an early left lower lobe infiltrate, 2 views of my interpretation is confirmed by radiology. Labs are noted. BNP is slightly elevated but not significantly so, and her chest x-ray does not appear to show acute CHF. When we ambulated her, she was very out of breath for the next 5 or 10 minutes, and her oxygen saturations went down to 85% with a slow recovery. She is not on home oxygen. She was placed back on nasal cannula, plan is admission. I am adding a procalcitonin and administering Tamiflu. She is not septic and could be potentially discharged to rest at home if she was not so hypoxic. We will give her Solu-Medrol 62.5 mg, she states her reaction to prednisone in the past was francheska related to her bipolar. She has not had IV Solu-Medrol before, she is willing to try it and I will give her a half dose. Lab Data Attestation: I reviewed the patient's lab results. Labs: Laboratory Results - last 24 hr 05/27/23 05/27/23 09:18 09:24 WBC 7.2 RBC 4.96 Hgb 14.5 Hct 45.7 MCV 92.1 MCH 29.2 MCHC 31.7 L RDW Std Deviation 51.7 H RDW Coeff of Serafin 15.4 H Plt Count 259 MPV 9.7 Immature Gran % (Auto) 1.100 H Neut % (Auto) 73.6 H Lymph % (Auto) 11.6 L [place] % (Auto) 12.6 H Eos % (Auto) 0.4 Baso % (Auto) 0.7 Absolute Neuts (auto) 5.3 Absolute Lymphs (auto) 0.84 Nucleated RBC % 0 Sodium 138 Potassium 4.0 Chloride 104 Carbon Dioxide 27.0 Anion Gap 7 BUN 14 Creatinine 1.29 H Estim Creat Clear Calc 64.38 Est GFR (MDRD) Af Amer 56 L Est GFR (MDRD) Non-Af 46 L BUN/Creatinine Ratio 10.9 Glucose 238 H Calcium 9.8 Troponin I High Sens 35 B-Natriuretic Peptide 148.0 H POC Glucose 226 H Radiography Diagnostic Testing: Clinical Impression(s) from Imaging Studies Chest X-Ray 05/27/23 11:20 IMPRESSION: Focal left lower lobe infiltrate. Electronically Signed: Jaya Johnson MD at 12:08 EST , Rhythm Strip Rhythm Strip: Sinus Rhythm Rate: 90 Ectopy: PVC(s) EKG Initial EKG: Attestation: I personally reviewed and interpreted this EKG as follows: Interpretation: Sinus Rhythm, No Acute Injury Pattern, LAFB and Non-Specific ST Changes Comments: PVCs Prior EKG tracings: available for review Prior: Unchanged Management Discussion w/another healthcare provider: Hospitalist Discharge Plan Triage Chief Complaint: Shortness of Breath ED Provider: Pipe Liu Dx/Rx/DC Orders Clinical Impression: Acute respiratory insufficiency, Influenza A with pneumonia, Acute exacerbation of chronic obstructive pulmonary disease (COPD), Hypoxemia Primary Care Provider: Afia Machado NP
[2023-05-27] MEDS: Ipratropium/Albuterol Sulfate 3 ML AMPUL.NEB INHALATION ×2 (10:01→20:33)
[2023-05-27 10:15] LABS: Absolute Lymphocyte Count 0.84 X10^3/uL (0.83-4.51); Absolute Neutrophil Count 5.3 X10^3/uL (2.0-7.7); Basophil# 0.05 X10^3/uL; Basophil% 0.7 % (0-1); Eosinophil# 0.03 X10^3/uL; Eosinophils% 0.4 % (0-5); Hematocrit 45.7 % (37-47); Hemoglobin 14.5 g/dL (12.0-15.0); Lymphocyte # 0.84 X10^3/ul (0.83-4.51); Lymphocyte % 11.6 % (19-41); Mean Corp Hgb Conc 31.7 g/dL (32-36); Mean Corpuscular Hgb 29.2 pg (27.0-32.0); Mean Corpuscular Volume 92.1 fL (81-99); Mean Platelet Vol. 9.7 fl (6.2-12.0); Monocyte# 0.91 X10^3/uL; Monocyte% 12.6 % (0-10); NRBC Flagged by Analyzer 0 % (0-5); Neutrophil # 5.33 X10^3/uL (2.7-7.7); Neutrophil % 73.6 % (47-70); Platelet Count 259 K/mm3 (150-450); RBC Distribution Width CV 15.4 % (11.6-14.6); RBC Distribution Width SD 51.7 fl (35.1-43.9); Red Blood Count 4.96 M/mm3 (4.2-5.4); White Blood Count 7.2 K/mm3 (4.4-11.0)
[2023-05-27 10:35] LABS: Anion Gap 7 (5-15); BUN 14 mg/dL (7-18); BUN/Creat Ratio 10.9 RATIO (10-20); Calcium,Total 9.8 mg/dL (8.5-10.1); Chloride 104 mmol/L (98-107); Creatinine, Serum 1.29 mg/dL (0.55-1.02); EST Glomerular Filtration Rate 46 mL/min (>60); Est Glom Filt Rate - Afr Amer 56 mL/min (>60); Estimated Creatinine Clearance 64.38 ml/min; Glucose 238 mg/dL (74-106); Sodium Level 138 mmol/L (136-145); Troponin-I HS 35 pg/mL (3.0-54.0)
[2023-05-27 11:03] LABS: Bedside Glucose 226 mg/dL (74-106)
--- NOTE | 2023-05-27 11:20 | RAD_ITS ---
STUDY: X-RAY CHEST REASON FOR EXAM: Female, 52 years old. Sob, cough TECHNIQUE: PA and lateral views of the chest. COMPARISON: Comparison is made with prior study dated September 24, 2022. FINDINGS: EKG electrodes are seen. Focal left lower lobe infiltrate. There is no demonstrated pleural abnormality. Normal size heart. Normal mediastinum and rogerio. Normal visualized pulmonary arteries. Normal visualized aortic arch and descending thoracic aorta. Normal visualized thoracic spine. Normal visualized ribs, clavicles, and shoulders. There is no demonstrated abnormality of the visualized soft tissue structures of the upper abdomen. RAD/Chest PA and Lateral IMPRESSION: Focal left lower lobe infiltrate. Electronically Signed: Jaya Johnson MD at 12:08 EST ,
--- NOTE | 2023-05-27 12:50 | PCM.HP.STD ---
HPI - General General Date of Admission: 05/27/23 Date of Service: 05/27/23 Chief Complaint: Nonproductive cough and worsening shortness of breath HPI Narrative MANUEL HORN, is a 52 F who presented to [facility] ED on 05/27/2023 with nonproductive cough and worsening shortness of breath. Patient seen at bedside on the floor shortly after arriving over the ED. Patient was noticeably flushed on exam with some diaphoresis noted. She was sitting at the edge of the bed and conversing normally. She was breathing comfortably on 2 L nasal cannula. Patient states she lives at home by herself, generally has good functional status at baseline. States she started to have a cough with worsening shortness of breath at rest yesterday, and symptoms were worsened this morning so she came to the ED for further evaluation. Notes that her neighbor was diagnosed with the flu recently. Patient has a history of CAMMIE, has not been compliant with home CPAP for a long time . She denies a formal diagnosis of COPD but states she has been having workup done with pulmonology recently. Patient was given a breathing treatment in the ED and put on supplemental oxygen with only mild improvement in her symptoms. States she has had fevers and chills since arriving to the ED this morning. Denies any significant headache or body aches. Otherwise denies any other acute concerns. ON LICENSE OF [facility] Medical History (Updated 05/27/23 @ 14:37 by Elvira Mahoney) Acute respiratory failure Anxiety Bilateral pulmonary embolism BiPAP (biphasic positive airway pressure) dependence Bipolar disorder Bipolar disorder Cellulitis and abscess of neck Chronic back pain Chronic pain Depression Diabetes Kidney stones Bahman's angina Non-healing surgical wound Pulmonary embolism Pulmonary infarction Schizophrenia Smoker Tobacco abuse Upper airway obstruction Home Medications valacyclovir 1 gram tablet 1,000 mg PO DAILY anti virus 08/12/18 [History Last Taken 05/26/23] aripiprazole lauroxil 882 mg/3.2 mL suspension, ext.rel. IM syringe 882 mg IM [facility] health 09/12/18 [History Last Taken 05/18/23] cholecalciferol (vitamin D3) 25 mcg (1,000 unit) tablet 5,000 unit PO DAILY vitamin 07/02/20 [History Last Taken 05/26/23] gabapentin 300 mg capsule 300 mg PO TIDCM nerve pain 07/02/20 [History Last Taken 05/26/23] bupropion HCl 300 mg 24 hr tablet, extended release 300 mg PO DAILY mental health 09/04/22 [History Last Taken 05/26/23] omeprazole 20 mg tablet,delayed release 20 mg PO DAILY reflux 09/04/22 [History Last Taken 05/26/23] acetaminophen 325 mg tablet 650 mg (2 x 325 mg) PO Q4H PRN PRN Fever, pain 1-10/10 #0 tabs 09/05/22 [Rx Last Taken 05/26/23] albuterol sulfate 90 mcg/actuation aerosol inhaler (Ventolin HFA) 1 - 2 puff inhalation Q4H PRN PRN Wheezing ##1 09/24/22 [Rx Last Taken Unknown] apixaban 5 mg tablet (Eliquis) 5 mg PO Q12H 05/27/23 [History Last Taken Unknown] tirzepatide 5 mg/0.5 mL subcutaneous pen injector (Mounjaro) 5 mg subcut QWEEK 05/27/23 [History Last Taken 05/20/23] Allergy/AdvReac Type Severity Reaction Status Date / Time prednisone AdvReac Other Verified 05/27/23 09:25 Sulfa (Sulfonamide AdvReac Rash Verified 05/27/23 09:25 Antibiotics) Surgical History History of adenoidectomy History of cholecystectomy Social History Smoking Status: Current every day smoker tobacco type: cigarettes Tobacco: How many years used: 30 second hand exposure: Yes alcohol intake: current alcohol intake frequency: holidays/special occasions only substance use type: does not use ROS Constitutional Constitutional: Reports chills, fatigue, fever(s) and malaise; Denies weakness Eyes Eyes: Denies change in vision ENT HEENT: Denies nasal congestion, nasal discharge, post nasal drip, sinus pressure or sore throat Cardiovascular Cardiovascular: Reports dyspnea on exertion; Denies chest pain, edema, lightheadedness, orthopnea or palpitations Respiratory/Chest Respiratory/Chest: Reports cough, shortness of breath at rest and shortness of breath with exertion; Denies productive cough or wheezing Gastrointestinal Gastrointestinal: Denies abdominal pain, constipation, diarrhea, nausea or vomiting Genitourinary Genitourinary: Denies dysuria Musculoskeletal Musculoskeletal: Denies arthralgias or back pain Neurologic Neurologic: Denies dizziness, focal weakness or headache(s) Vital Signs Vital Signs Vital Signs: 05/27/23 09:25 05/27/23 10:04 05/27/23 09:55 Temperature 97.8 F Temperature Source Temporal Pulse Rate 89 82 Respiratory Rate 40 H 24 H Respiratory Effort Respiratory Depth Respiratory Pattern Tachypnea Blood Pressure 180/105 H Blood Pressure Mean 130 Pulse Ox 90 93 Oxygen Delivery Method Room Air Nasal Cannula Oxygen Flow Rate (L/min) 2 05/27/23 11:18 05/27/23 11:19 Temperature Temperature Source Pulse Rate 88 Respiratory Rate 16 Respiratory Effort Short of Breath Respiratory Depth Shallow Respiratory Pattern Tachypnea Blood Pressure 193/93 H Blood Pressure Mean 126 Pulse Ox 95 Oxygen Delivery Method Nasal Cannula Nasal Cannula Oxygen Flow Rate (L/min) 2 2 Weight Weight: 124.7 kg Body Mass Index (BMI) 50.3 Physical Exam Const alert and oriented x3 Constitutional Narrative: Pleasant middle-aged female, morbidly obese, sitting at edge of bed, flushed and diaphoretic appearing, mildly fatigued appearing, otherwise conversing normally and in no acute distress. General Appearance: cooperative and comfortable HEENT normocephalic, head/scalp atraumatic, hearing grossly normal bilaterally and nasal mucous membranes and turbinates normal HEENT Narrative: Dry mucous membranes. Eyes PERRL, EOMs intact bilaterally and conjunctivae normal Neck full ROM, no lymphadenopathy and supple Lymph Lymphatic: no lymphadenopathy noted Chest inspection of chest normal Resp Resp Narrative: Breathing comfortably on 2 L nasal cannula. Mildly decreased breath sounds bilaterally throughout, no wheezing or crackles noted. Cardio no murmurs and peripheral pulses 2+ throughout Cardio Narrative: Tachycardic, regular rhythm. GI normal to inspection, nondistended, normoactive bowel sounds, soft to palpation, non-tender and non-distended Back/Spine normal ROM Extremity normal to inspection, full ROM and no pedal edema Skin no rashes or lesions noted Neuro moves all extremities and no focal motor deficits Speech: speech normal Psych mental status grossly normal Results Lab / Micro Data 05/27/23 09:18 05/27/23 09:18 Labs: Laboratory Results - last 24 hr 05/27/23 09:18: WBC 7.2, RBC 4.96, Hgb 14.5, Hct 45.7, MCV 92.1, MCH 29.2, MCHC 31.7 L, RDW Std Deviation 51.7 H, RDW Coeff of Serafin 15.4 H, Plt Count 259, MPV 9.7, Immature Gran % (Auto) 1.100 H, Neut % (Auto) 73.6 H, Lymph % (Auto) 11.6 L, [place] % (Auto) 12.6 H, Eos % (Auto) 0.4, Baso % (Auto) 0.7, Absolute Neuts (auto) 5.3, Absolute Lymphs (auto) 0.84, Nucleated RBC % 0, Sodium 138, Potassium 4.0, Chloride 104, Carbon Dioxide 27.0, Anion Gap 7, BUN 14, Creatinine 1.29 H, Estim Creat Clear Calc 64.38, Est GFR (MDRD) Af Amer 56 L, Est GFR (MDRD) Non-Af 46 L, BUN/Creatinine Ratio 10.9, Glucose 238 H, Calcium 9.8, Troponin I High Sens 35, B-Natriuretic Peptide 148.0 H 05/27/23 09:24: POC Glucose 226 H Micro: Microbiology 05/27/23 11:18 Mucosa - Nose SARS-CoV-2, Influenza & RSV (PCR) - Final Influenzae A Rhythm Strip Rhythm Strip: Sinus Rhythm Rate: 90 Ectopy: PVC(s) Imaging Radiology Impression Chest X-Ray 05/27/23 11:20 IMPRESSION: Focal left lower lobe infiltrate. Electronically Signed: Jaya Johnson MD at 12:08 EST , Assessment & Plan Assessment/Plan (1) Hypoxemia: (2) Acute exacerbation of chronic obstructive pulmonary disease (COPD): (3) Influenza A with pneumonia: PLAN: Plan Patient is a 52-year-old female who presented to [facility] ED on 05/27/2023 with worsening cough and shortness of breath. 1. Influenza A infection, COPD exacerbation with acute hypoxia, concern for superimposed bacterial pneumonia Influenza A positive in ED. Recently diagnosed with COPD, PFTs done in 12/2022 showed moderate large airways obstructive ventilatory defect with no significant response to bronchodilators. Has not seen pulmonology in the office since then, only on home rescue inhaler with no long-acting inhalers. Not on home O2. Requiring 2 L nasal cannula in ED for hypoxia. Chest x-ray shows focal left lower lobe infiltrate. Febrile to 101.9F, tachycardic, tachypneic, hypertensive in the ED. WBC count 7000. Procalcitonin 0.15. BNP 148. ? Admit under inpatient status to PCU. Treat with IV steroids, scheduled DuoNesean Tamiflu for now. Patient notably reports significant anxiety with francheska with high dose of steroids, will give IV methylprednisolone 40 mg daily and monitor closely. Broad-spectrum antibiotics started on admission, will continue for now. Blood cultures and sputum culture ordered. Wean supplemental oxygen as able. Incentive spirometry ordered. 2. Mild creatinine elevation ? Creatinine 1.29 on admit, baseline creatinine appears to be around 1.0-1.2. Suspect patient was mildly dry on admission. Hold on IV fluids for now given hypoxia, encouraged p.o. intake. Follow-up a.m. BMP. Monitor urine output. 3. Type 2 diabetes mellitus with hyperglycemia, diabetic neuropathy ? Blood glucose 238 on admit. Last A1c 9.2% in 09/2022. Repeat A1c ordered. Only on home tirzepatide weekly. Sliding-scale insulin while inpatient. 4. Elevated blood pressure readings ? No history of hypertension, not on any home antihypertensives. BP is elevated to 170s to 190s systolic and up to 130s diastolic on admit. Suspect secondary to acute stress state. IV hydralazine as needed ordered. Chronic medical conditions: ? Morbid obesity: BMI 51 on admit. Complicates hospital course, care and prognosis. ? CAMMIE: Nonadherent to home CPAP. Nasal cannula at night while inpatient. ? Bipolar disorder: Continue home Wellbutrin. Also receives monthly aripiprazole injection, last injection was about 1 week prior to admission. Has been on this regimen for several years with good stability in patient's mood. ? History of VTE: Bilateral PE diagnosed in 08/2022, unclear etiology. Continue home Eliquis. ? GERD: Continue home PPI. ? History of cigarette smoking DVT prophylaxis: Eliquis CODE STATUS: Full code, verified Expected disposition: Home, 2 to 3 days Total clinical time spent by myself addressing the patient's medical issues, reviewing all the data, and collaborating with patient's care team: 55 minutes. Charges/Coding Visit Charges Inpatient E&M: 98373 Init Hosp L2
[2023-05-27] MEDS: Oseltamivir Phosphate 75 MG Capsule PO (12:56)
[2023-05-27] MEDS: MethylPREDNISolone 125 MG/2 ML Vial 62.5 MG IV (13:42)
[2023-05-27] MEDS: Albuterol 2.5 MG/3 ML VIAL.NEB. INHALATION (13:52)
[2023-05-27] MEDS: Insulin Lispro 100 UNIT/ML INSULN.PEN SC ×2 (15:34→21:43)
[2023-05-27 15:43] LABS: Bedside Glucose 194 mg/dL (74-106)
[2023-05-27 16:39] LABS: Procalcitonin 0.15 ng/mL (0.00-0.09)
[2023-05-27] MEDS: Piperacil/Tazobactam 4.5 GM in 0.9% Normal Saline (100mL MB+) 100 ML IV (17:21)
[2023-05-27] MEDS: 0.9% Normal Saline (250mL Bag) 250 ML 15 ML IV (17:25)
[2023-05-27] MEDS: Gabapentin 300 MG Capsule PO (17:26)
[2023-05-27] MEDS: Acetaminophen 325 MG Tablet 650 MG PO (17:32)
[2023-05-27] MEDS: Vancomycin HCl 2,000 MG in 0.9% Normal Saline (500mL Bag) 500 ML 250 MG IV (18:17)
[2023-05-27] MEDS: 0.9% Saline Lock 10 ML Syringe IV (18:17)
--- NOTE | 2023-05-27 20:17 | PCM.RX.CS ---
Consult Antibiotic Management Pharmacy has been consulted to manage selected antibiotic: Vancomycin Type of Intervention Type of Consult: New start Suspected Infection Suspected Infection: Pneumonia Labs Labs: Sodium 138 mmol/L (136-145) 05/27/23 09:18 Potassium 4.0 mmol/L (3.5-5.1) 05/27/23 09:18 Chloride 104 mmol/L (98-107) 05/27/23 09:18 Carbon Dioxide 27.0 mmol/L (21.0-32.0) 05/27/23 09:18 Anion Gap 7 (5-15) 05/27/23 09:18 BUN 14 mg/dL (7-18) 05/27/23 09:18 Creatinine 1.29 mg/dL (0.55-1.02) H 05/27/23 09:18 Est GFR (MDRD) Af Amer 56 mL/min (>60) L 05/27/23 09:18 Est GFR (MDRD) Non-Af 46 mL/min (>60) L 05/27/23 09:18 BUN/Creatinine Ratio 10.9 RATIO (10-20) 05/27/23 09:18 Glucose 238 mg/dL (74-106) H 05/27/23 09:18 Microbiology Microbiology: Microbiology 05/27/23 11:18 Mucosa - Nose SARS-CoV-2, Influenza & RSV (PCR) - Final Influenzae A Pharmacy Plan for Drug Dosing Pharmacy Plan for Drug Dosing: NEW START IV VANCOMYCIN Consulting Physician: Peter Indication: Pneumonia Goal Trough: 15-20 mg/dl SrCr: 1.29 mg/dL (05/27/23) CrCl: 64 mL/min (using adjusted BW) Comments: 2000mg loading dose given 05/27 @ 1817 Vancomycin Dose: Will start 1500mg Q12 and get a trough prior to 4th dose per policy. Pending Level: 05/29 @ 1395 Pharmacy Service will continue to monitor and adjust dosing as required.
[2023-05-27 21:13] LABS: Bedside Glucose 290 mg/dL (74-106)
[2023-05-27] MEDS: Piperacil/Tazobactam 3.375 GM in 0.9% Normal Saline (50mL MB+) 50 ML IV (21:43)
[2023-05-27] MEDS: APIXABAN 5 MG TABLET PO (21:43)
[2023-05-28] VITALS (11 sets, daily range): BP systolic 130–156; BP diastolic 74–86; PULSE 71–95; RESP 20; TEMP 36.1–36.8; O2SAT 94–98
[2023-05-28] MEDS: Vancomycin HCl 1,500 MG in 0.9% Normal Saline (500mL Bag) 500 ML 250 MG IV ×2 (05:31→17:36)
[2023-05-28] MEDS: Piperacil/Tazobactam 3.375 GM in 0.9% Normal Saline (50mL MB+) 50 ML IV ×3 (05:32→20:21)
[2023-05-28 05:52] LABS: Bedside Glucose 145 mg/dL (74-106)
[2023-05-28 05:53] LABS: Hematocrit 48.5 % (37-47); Hemoglobin 15.3 g/dL (12.0-15.0); Mean Corp Hgb Conc 31.5 g/dL (32-36); Mean Corpuscular Hgb 29.9 pg (27.0-32.0); Mean Corpuscular Volume 94.7 fL (81-99); Mean Platelet Vol. 9.4 fl (6.2-12.0); Platelet Count 249 K/mm3 (150-450); RBC Distribution Width CV 15.5 % (11.6-14.6); RBC Distribution Width SD 53.9 fl (35.1-43.9); Red Blood Count 5.12 M/mm3 (4.2-5.4); White Blood Count 6.9 K/mm3 (4.4-11.0)
[2023-05-28 06:17] LABS: Anion Gap 4 (5-15); BUN 18 mg/dL (7-18); BUN/Creat Ratio 15.1 RATIO (10-20); Calcium,Total 9.8 mg/dL (8.5-10.1); Chloride 106 mmol/L (98-107); Creatinine, Serum 1.19 mg/dL (0.55-1.02); EST Glomerular Filtration Rate 51 mL/min (>60); Est Glom Filt Rate - Afr Amer 61 mL/min (>60); Estimated Creatinine Clearance 71.08 ml/min; Glucose 141 mg/dL (74-106); Potassium 4.8 mmol/L (3.5-5.1); Sodium Level 140 mmol/L (136-145)
[2023-05-28] MEDS: Ipratropium/Albuterol Sulfate 3 ML AMPUL.NEB INHALATION ×4 (07:27→20:25)
[2023-05-28] MEDS: Gabapentin 300 MG Capsule PO ×3 (10:23→17:36)
[2023-05-28] MEDS: APIXABAN 5 MG TABLET PO ×2 (10:23→20:22)
[2023-05-28] MEDS: buPROPion (XL) 300 MG TABLET.XL PO (10:23)
[2023-05-28] MEDS: Pantoprazole Sodium 20 MG Tablet PO (10:23)
[2023-05-28] MEDS: Acyclovir 200 MG Capsule 400 MG PO ×2 (10:23→20:22)
[2023-05-28] MEDS: Acetaminophen 325 MG Tablet 650 MG PO (10:24)
[2023-05-28] MEDS: 0.9% Saline Lock 10 ML Syringe IV (10:25)
[2023-05-28] MEDS: Insulin Lispro 100 UNIT/ML INSULN.PEN SC ×3 (11:54→20:22)
[2023-05-28] MEDS: guaiFENesin 10 ML UDC (200MG/10ML) PO (12:00)
[2023-05-28 12:08] LABS: Bedside Glucose 158 mg/dL (74-106)
--- NOTE | 2023-05-28 12:28 | CASEMGMT ---
ZEE LOCKHART Assessment Face to Face with patient for initial transition planning/care coordination assessment. ZEE LOCKHART introduced self and role at [facility], pt voices understanding. Pt is A&Ox4 and is resting comfortably in bed and is calm. Care providers, pharmacy, and demographics verified. Admitting dx: Influenza A, COPD Exacerbation PCP: Carter Specialists: Shabbir Abdul Pharmacy: [facility] Insurance: [employer]/ [employer], [employer] [facility] Prescription Benefit:Yes LNOK: Hodan Marsh (M), Gi Marsh (SIS) Living Arrangements: Pt lives alone on the 3rd floor of an apartment building with 2 flights of steps to enter. Pt states that she does get SOB with these steps and uses the elevator at times. ADLs/IADLs: Ind Transportation: Pt does not drive. Pt states that her neighbor can drive her as well as insurance. DME: Shower chair with [employer]. Pt states that she was not DC home on any Oxygen her last visit and is requesting home O2 during this stay. Pt denies wanting to see a local list of in network providers and pt states she wants O2 needs through [facility]. HHC/SNF: Denies history or needs. Pt?s goal: Home with O2 Plan: 6- Click is 22. Pt refused PT/OT. Pt refusing HHC, SNF, and OP Therapy at this time. Pt wants to DC home with oxygen. Will follow for O2 needs. Ever Peacock RN, CM
--- NOTE | 2023-05-28 12:29 | PN.HOSP_ITS ---
Reason for Visit Reason for Visit: Diagnoses Influenza due to identified novel influenza A virus with pneumonia (05/27/23) Chronic obstructive pulmonary disease with (acute) exacerbation (05/27/23) Hypoxemia (05/27/23) Subjective Subjective No acute events overnight. Patient seen at bedside this morning. Patient states she feels improved this morning, states her fevers broke overnight and she generally feels more comfortable today than yesterday. She does continue to have a cough, is asking for cough drops and cough suppressant medication. She otherwise is breathing comfortably on 4 L nasal cannula, similar to yesterday. Denies any other acute concerns this time. Objective Data Objective Data Vital Signs: Vital Signs Temp Pulse Resp BP Pulse Ox O2 Del Method O2 Flow Rate 98.0 F 95 20 H 143/76 H 96 Nasal Cannula 4 05/28/23 10:00 05/28/23 10:00 05/28/23 10:00 05/28/23 10:00 05/28/23 10:00 05/28/23 10:09 05/28/23 10:09 FiO2 4 05/27/23 21:00 Oxygen Flow Rate (L/min) 4 Oxygen Delivery Method Nasal Cannula Weight: 128.4 kg Body Mass Index (BMI) 51.7 Intake & Output: Intake and Output for Last 24 Hours 05/26/23 05/27/23 05/28/23 23:59 23:59 23:59 Intake Total 645.25 / 885.25 1350 / 1350 Balance 645.25 / 885.25 1350 / 1350 Lab / Micro Data 05/28/23 05:34 05/28/23 05:34 Labs: Laboratory Results - last 24 hr 05/27/23 15:21: POC Glucose 194 H 05/27/23 15:31: Procalcitonin 0.15 H 05/27/23 20:55: POC Glucose 290 H 05/28/23 05:30: POC Glucose 145 H 05/28/23 05:34: WBC 6.9, RBC 5.12, Hgb 15.3 H, Hct 48.5 H, MCV 94.7, MCH 29.9, MCHC 31.5 L, RDW Std Deviation 53.9 H, RDW Coeff of Serafin 15.5 H, Plt Count 249, MPV 9.4, Sodium 140, Potassium 4.8, Chloride 106, Carbon Dioxide 30.0, Anion Gap 4 L, BUN 18, Creatinine 1.19 H, Estim Creat Clear Calc 71.08, Est GFR (MDRD) Af Amer 61, Est GFR (MDRD) Non-Af 51 L, BUN/Creatinine Ratio 15.1, Glucose 141 H, Hemoglobin A1c 7.0 H, Calcium 9.8 05/28/23 11:49: POC Glucose 158 H Micro: Microbiology 05/27/23 11:18 Mucosa - Nose SARS-CoV-2, Influenza & RSV (PCR) - Final Influenzae A Rhythm Strip Rhythm Strip: Sinus Rhythm Rate: 90 Ectopy: PVC(s) Physical Exam Const alert and oriented x3 Constitutional Narrative: Pleasant middle-aged female, morbidly obese, appears much improved today, no flushing or diaphoresis noted, laying comfortably in bed, conversing normally, no acute distress. General Appearance: cooperative and comfortable HEENT normocephalic, head/scalp atraumatic, hearing grossly normal bilaterally, nasal mucous membranes and turbinates normal and moist oral mucous membranes Eyes PERRL, EOMs intact bilaterally and conjunctivae normal Neck full ROM, no lymphadenopathy and supple Lymph Lymphatic: no lymphadenopathy noted Chest inspection of chest normal Resp Resp Narrative: Breathing comfortably on 4 L nasal cannula. Mildly decreased breath sounds bilaterally throughout, no wheezing or crackles noted. Cardio regular rate, regular rhythm, no murmurs and peripheral pulses 2+ throughout GI normal to inspection, nondistended, normoactive bowel sounds, soft to palpation, non-tender and non-distended Back/Spine normal ROM Extremity normal to inspection, full ROM and no pedal edema Skin no rashes or lesions noted Neuro moves all extremities and no focal motor deficits Speech: speech normal Psych mental status grossly normal Assessment & Plan Assessment/Plan (1) Hypoxemia: (2) Acute exacerbation of chronic obstructive pulmonary disease (COPD): (3) Influenza A with pneumonia: PLAN: Plan Patient is a 52-year-old female who presented to [facility] ED on 05/27/2023 with worsening cough and shortness of breath. 1. Influenza A infection, COPD exacerbation with acute hypoxia, concern for superimposed bacterial pneumonia Influenza A positive in ED. Recently diagnosed with COPD, PFTs done in 12/2022 showed moderate large airways obstructive ventilatory defect with no significant response to bronchodilators. Has not seen pulmonology in the office since then, only on home rescue inhaler with no long-acting inhalers. Not on home O2. Requiring 2 L nasal cannula in ED for hypoxia. Chest x-ray shows focal left low er lobe infiltrate. Febrile to 101.9F, tachycardic, tachypneic, hypertensive in the ED. WBC count 7000. Procalcitonin 0.15. BNP 148. ? Continue to treat with IV Solu-Medrol 40 mg daily, scheduled DuoNebs, Tamiflu. Continue vancomycin and Zosyn for now, blood cultures and sputum culture pending. Wean supplemental oxygen as able. Incentive spirometry ordered. Patient will need O2 ambulatory test prior to discharge. 2. Mild creatinine elevation, improving ? Creatinine 1.29 on admit, baseline creatinine appears to be around 1.0-1.2. Creatinine mildly improved to 1.19 on 05/28. Suspect patient was mildly dry in admission. No need for IV fluids at this time, encouraging p.o. intake. 3. Type 2 diabetes mellitus with hyperglycemia, diabetic neuropathy ? Blood glucose 238 on admit. Last A1c 9.2% in 09/2022. Repeat A1c 7.0% on 05/28. Only on home tirzepatide weekly. Sliding-scale insulin while inpatient. 4. Elevated blood pressure readings ? No history of hypertension, not on any home antihypertensives. BP is elevated to 170s to 190s systolic and up to 130s diastolic on admit. Suspect secondary to acute stress state. IV hydralazine as needed ordered. Chronic medical conditions: ? Morbid obesity: BMI 51 on admit. Complicates hospital course, care and prognosis. ? CAMMIE: Nonadherent to home CPAP. Nasal cannula at night while inpatient. ? Bipolar disorder: Continue home Wellbutrin. Also receives monthly aripiprazole injection, last injection was about 1 week prior to admission. Has been on this regimen for several years with good stability in patient's mood. ? History of VTE: Bilateral PE diagnosed in 08/2022, unclear etiology. Continue home Eliquis. ? GERD: Continue home PPI. ? History of cigarette smoking DVT prophylaxis: Eliquis CODE STATUS: Full code, verified Expected disposition: Home, 1 to 2 days Total clinical time spent by myself addressing the patient's medical issues, reviewing all the data, and collaborating with patient's care team: 35 minutes. Charges/Coding Visit Charges Inpatient E&M: 44046 Subs Hosp L2
[2023-05-28 16:45] LABS: Bedside Glucose 257 mg/dL (74-106)
[2023-05-28 20:30] LABS: Bedside Glucose 244 mg/dL (74-106)
[2023-05-29] VITALS (9 sets, daily range): BP systolic 112–150; BP diastolic 65–88; PULSE 68–89; RESP 18–22; TEMP 36.7–37.3; O2SAT 88–96
[2023-05-29] MEDS: guaiFENesin 10 ML UDC (200MG/10ML) PO ×3 (01:52→16:50)
[2023-05-29] MEDS: Acetaminophen 325 MG Tablet 650 MG PO ×3 (01:52→16:50)
[2023-05-29] MEDS: Piperacil/Tazobactam 3.375 GM in 0.9% Normal Saline (50mL MB+) 50 ML IV ×3 (05:18→22:38)
[2023-05-29 05:36] LABS: Bedside Glucose 117 mg/dL (74-106)
[2023-05-29 06:14] LABS: Vancomycin, Trough Level 17.4 ug/mL (5.0-15.0)
--- NOTE | 2023-05-29 06:31 | PCM.RX.CS ---
Consult Antibiotic Management Pharmacy has been consulted to manage selected antibiotic: Vancomycin Type of Intervention Type of Consult: Follow-up Labs Labs: Sodium 140 mmol/L (136-145) 05/28/23 05:34 Potassium 4.8 mmol/L (3.5-5.1) 05/28/23 05:34 Chloride 106 mmol/L (98-107) 05/28/23 05:34 Carbon Dioxide 30.0 mmol/L (21.0-32.0) 05/28/23 05:34 Anion Gap 4 (5-15) L 05/28/23 05:34 BUN 18 mg/dL (7-18) 05/28/23 05:34 Creatinine 1.19 mg/dL (0.55-1.02) H 05/28/23 05:34 Est GFR (MDRD) Af Amer 61 mL/min (>60) 05/28/23 05:34 Est GFR (MDRD) Non-Af 51 mL/min (>60) L 05/28/23 05:34 BUN/Creatinine Ratio 15.1 RATIO (10-20) 05/28/23 05:34 Glucose 141 mg/dL (74-106) H 05/28/23 05:34 Vancomycin Trough 17.4 ug/mL (5.0-15.0) H 05/29/23 05:31 Microbiology Microbiology: Microbiology 05/28/23 16:05 Urine, Clean Catch Legionella Antigen - Final 05/28/23 16:05 Urine, Clean Catch Streptococcus pneumoniae Antigen (M - Final 05/27/23 11:18 Mucosa - Nose SARS-CoV-2, Influenza & RSV (PCR) - Final Influenzae A Goal Trough Goal Trough: 15-20 mcg/mL Pharmacy Plan for Drug Dosing Pharmacy Plan for Drug Dosing: Pharmacy Service will continue to monitor and adjust dosing as required. TROUGH 17.4 @ 12 HOURS. NO CHANGES, FOLLOW UP TROUGH IN 2 DAYS Follow-Up Labs Follow-Up Labs: Trough: Vancomycin Date/Time Labs Ordered Labs to be done on [date and time ordered]: 05/31 @ 4147
[2023-05-29] MEDS: Ipratropium/Albuterol Sulfate 3 ML AMPUL.NEB INHALATION ×4 (07:37→22:25)
[2023-05-29] MEDS: Vancomycin HCl 1,500 MG in 0.9% Normal Saline (500mL Bag) 500 ML 250 MG IV ×2 (08:08→18:40)
[2023-05-29] MEDS: Gabapentin 300 MG Capsule PO ×3 (08:08→16:50)
[2023-05-29] MEDS: 0.9% Saline Lock 10 ML Syringe IV (09:31)
[2023-05-29] MEDS: APIXABAN 5 MG TABLET PO ×2 (09:32→22:35)
[2023-05-29] MEDS: BENZOCAINE/MENTHOL 1 LOZENGE 2 LOZENGE MUCOUS MEM ×2 (09:32→16:50)
[2023-05-29] MEDS: Pantoprazole Sodium 20 MG Tablet PO (09:32)
[2023-05-29] MEDS: Acyclovir 200 MG Capsule 400 MG PO ×2 (09:32→22:35)
[2023-05-29] MEDS: buPROPion (XL) 300 MG TABLET.XL PO (09:32)
[2023-05-29] MEDS: Insulin Lispro 100 UNIT/ML INSULN.PEN SC ×3 (11:45→22:39)
[2023-05-29 12:04] LABS: Bedside Glucose 180 mg/dL (74-106)
--- NOTE | 2023-05-29 15:44 | PCM.PN.HOSP ---
Reason for Visit Reason for Visit: Diagnoses Influenza due to identified novel influenza A virus with pneumonia (05/27/23) Chronic obstructive pulmonary disease with (acute) exacerbation (05/27/23) Hypoxemia (05/27/23) Subjective Subjective No acute events overnight. Patient seen at bedside this morning. Patient was laying comfortably bed, conversing normally, no acute distress. Feels similar today to yesterday, endorses mild dry cough but otherwise denies any fevers or chills or any other acute concerns at this time. Objective Data Objective Data Vital Signs: Vital Signs Temp Pulse Resp BP Pulse Ox O2 Del Method O2 Flow Rate 99.1 F 89 20 H 112/68 96 Nasal Cannula 2 05/29/23 09:31 05/29/23 11:00 05/29/23 11:00 05/29/23 09:31 05/29/23 09:31 05/29/23 13:59 05/29/23 13:59 FiO2 4 05/27/23 21:00 Oxygen Flow Rate (L/min) 2 Oxygen Delivery Method Nasal Cannula Weight: 128.4 kg Body Mass Index (BMI) 51.7 Intake & Output: Intake and Output for Last 24 Hours 05/27/23 05/28/23 05/29/23 23:59 23:59 23:59 Intake Total 645.25 / 885.25 2170 / 2410 1590.00 / 1590.00 Output Total 250 / 250 Balance 645.25 / 885.25 1920 / 2160 1590.00 / 1590.00 Lab / Micro Data 05/28/23 05:34 05/28/23 05:34 Labs: Laboratory Results - last 24 hr 05/28/23 16:19: POC Glucose 257 H 05/28/23 20:10: POC Glucose 244 H 05/29/23 05:18: POC Glucose 117 H 05/29/23 05:31: Vancomycin Trough 17.4 H 05/29/23 11:44: POC Glucose 180 H Micro: Microbiology 05/28/23 16:05 Urine, Clean Catch Legionella Antigen - Final 05/28/23 16:05 Urine, Clean Catch Streptococcus pneumoniae Antigen (M - Final 05/27/23 11:18 Mucosa - Nose SARS-CoV-2, Influenza & RSV (PCR) - Final Influenzae A Rhythm Strip Rhythm Strip: Sinus Rhythm Rate: 90 Ectopy: PVC(s) Physical Exam Const alert and oriented x3 Constitutional Narrative: Pleasant middle-aged female, morbidly obese, laying comfortably in bed, conversing normally, no acute distress. General Appearance: cooperative and comfortable HEENT normocephalic, head/scalp atraumatic, hearing grossly normal bilaterally, nasal mucous membranes and turbinates normal and moist oral mucous membranes Eyes PERRL, EOMs intact bilaterally and conjunctivae normal Neck full ROM, no lymphadenopathy and supple Lymph Lymphatic: no lymphadenopathy noted Chest inspection of chest normal Resp Resp Narrative: Breathing comfortably on 4 L nasal cannula. Mildly decreased breath sounds bilaterally throughout, no wheezing or crackles noted. Cardio regular rate, regular rhythm, no murmurs and peripheral pulses 2+ throughout GI normal to inspection, nondistended, normoactive bowel sounds, soft to palpation, non-tender and non-distended Back/Spine normal ROM Extremity normal to inspection, full ROM and no pedal edema Skin no rashes or lesions noted Neuro moves all extremities and no focal motor deficits Speech: speech normal Psych mental status grossly normal Assessment & Plan Assessment/Plan (1) Hypoxemia: (2) Acute exacerbation of chronic obstructive pulmonary disease (COPD): (3) Influenza A with pneumonia: PLAN: Plan Patient is a 52-year-old female who presented to [facility] ED on 05/27/2023 with worsening cough and shortness of breath. 1. Influenza A infection, COPD exacerbation with acute hypoxia, concern for superimposed bacterial pneumonia Influenza A positive in ED. Recently diagnosed with COPD, PFTs done in 12/2022 showed moderate large airways obstructive ventilatory defect with no significant response to bronchodilators. Has not seen pulmonology in the office since then, only on home rescue inhaler with no long-acting inhalers. Not on home O2. Requiring 2 L nasal cannula in ED for hypoxia. Chest x-ray shows focal left lower lobe infiltrate. Febrile to 101.9F, tachycardic, tachypneic, hypertensive in the ED. WBC count 7000. Procalcitonin 0.15. BNP 148. ? Continue to treat with IV Solu-Medrol 40 mg daily, scheduled DuoNebs, Tamiflu. Continue vancomycin and Zosyn for now, blood cultures and sputum culture pending. Wean supplemental oxygen as able. Incentive spirometry ordered. Patient will need O2 ambulatory test prior to discharge. 2. Mild creatinine elevation, improving ? Creatinine 1.29 on admit, baseline creatinine appears to be around 1.0-1.2. Creatinine mildly improved to 1.19 on 05/28. Suspect patient was mildly dry in admission. No need for IV fluids at this time, encouraging p.o. intake. 3. Type 2 diabetes mellitus with hyperglycemia, diabetic neuropathy ? Blood glucose 238 on admit. Last A1c 9.2% in 09/2022. Repeat A1c 7.0% on 05/28. Only on home tirzepatide weekly. Sliding-scale insulin while inpatient. 4. Elevated blood pressure readings, improving ? No history of hypertension, not on any home antihypertensives. BP is elevated to 170s to 190s systolic and up to 130s diastolic on admit. Suspect secondary to acute stress state. IV hydralazine as needed ordered. Chronic medical conditions: ? Morbid obesity: BMI 51 on admit. Complicates hospital course, care and prognosis. ? CAMMIE: Nonadherent to home CPAP. Nasal cannula at night while inpatient. ? Bipolar disorder: Continue home Wellbutrin. Also receives monthly aripiprazole injection, last injection was about 1 week prior to admission. Has been on this regimen for several years with good stability in patient's mood. ? History of VTE: Bilateral PE diagnosed in 08/2022, unclear etiology. Continue home Eliquis. ? GERD: Continue home PPI. ? History of cigarette smoking DVT prophylaxis: Eliquis CODE STATUS: Full code, verified Expected disposition: Home, 1 to 2 days Total clinical time spent by myself addressing the patient's medical issues, reviewing all the data, and collaborating with patient's care team: 35 minutes. Charges/Coding Visit Charges Inpatient E&M: 96836 Subs Hosp L2
[2023-05-29 17:09] LABS: Bedside Glucose 276 mg/dL (74-106)
[2023-05-29 23:07] LABS: Bedside Glucose 213 mg/dL (74-106)
[2023-05-30 03:00] VITALS: BP 150/87; PULSE 72; RESP 16; TEMP 36.7; O2SAT 96
[2023-05-30] MEDS: Vancomycin HCl 1,500 MG in 0.9% Normal Saline (500mL Bag) 500 ML 250 MG IV (05:00)
[2023-05-30] MEDS: Acetaminophen 325 MG Tablet 650 MG PO (05:16)
[2023-05-30] MEDS: BENZOCAINE/MENTHOL 1 LOZENGE 2 LOZENGE MUCOUS MEM (05:16)
[2023-05-30 06:49] LABS: Bedside Glucose 95 mg/dL (74-106)
[2023-05-30] MEDS: Ipratropium/Albuterol Sulfate 3 ML AMPUL.NEB INHALATION ×2 (07:13→10:36)
[2023-05-30] MEDS: Piperacil/Tazobactam 3.375 GM in 0.9% Normal Saline (50mL MB+) 50 ML IV (07:28)
[2023-05-30 07:45] VITALS: PULSE 80; RESP 17; O2SAT 95
[2023-05-30 08:27] LABS: Hematocrit 44.5 % (37-47); Hemoglobin 13.9 g/dL (12.0-15.0); Mean Corp Hgb Conc 31.2 g/dL (32-36); Mean Corpuscular Hgb 29.4 pg (27.0-32.0); Mean Corpuscular Volume 94.1 fL (81-99); Mean Platelet Vol. 9.4 fl (6.2-12.0); Platelet Count 260 K/mm3 (150-450); RBC Distribution Width CV 15.8 % (11.6-14.6); RBC Distribution Width SD 54.2 fl (35.1-43.9); Red Blood Count 4.73 M/mm3 (4.2-5.4)
[2023-05-30 08:54] VITALS: O2SAT 88; O2SAT 93; O2SAT 96
[2023-05-30 09:00] VITALS: BP 144/84; PULSE 69; RESP 20; TEMP 36.4; O2SAT 96
[2023-05-30 09:07] LABS: Anion Gap 4 (5-15); BUN 23 mg/dL (7-18); Chloride 109 mmol/L (98-107); EST Glomerular Filtration Rate 62 mL/min (>60); Est Glom Filt Rate - Afr Amer 75 mL/min (>60); Estimated Creatinine Clearance 84.59 ml/min; Glucose 93 mg/dL (74-106); Sodium Level 141 mmol/L (136-145)
[2023-05-30] MEDS: Acyclovir 200 MG Capsule 400 MG PO (09:08)
[2023-05-30] MEDS: Gabapentin 300 MG Capsule PO ×2 (09:08→11:28)
[2023-05-30] MEDS: 0.9% Saline Lock 10 ML Syringe IV (09:08)
[2023-05-30] MEDS: Pantoprazole Sodium 20 MG Tablet PO (09:09)
[2023-05-30] MEDS: APIXABAN 5 MG TABLET PO (09:09)
[2023-05-30] MEDS: buPROPion (XL) 300 MG TABLET.XL PO (09:09)
[2023-05-30 10:36] VITALS: PULSE 64; RESP 17
[2023-05-30] MEDS: Insulin Lispro 100 UNIT/ML INSULN.PEN SC (11:27)
[2023-05-30 11:43] LABS: Bedside Glucose 205 mg/dL (74-106)
--- NOTE | 2023-05-30 12:41 | DCINST_ITS ---
Discharge Instructions Diet Discharge Diet: No restrictions Activity Discharge Activity: No Restrictions Weight Bearing Status: Full weight bearing Follow Up Care Test Results: Test results from this visit will be discussed in further detail at your follow- up appointment, if applicable. Discharge Plan Admission Admit Date/Time: 05/27/23 12:52 Primary Reason for Your Visit: cough and shortness of breath Attending Provider: Nilson Green Primary Care Provider: Afia Machado NP Instructions Additional Instructions / Restrictions: Please take 2 more days of Tamiflu and prednisone to complete 5-day courses of flu medication and steroids. Please follow-up with your primary care doctor in the office in the next few weeks and with the lung doctor as previously scheduled. Discharge Orders/Prescriptions Prescriptions: New prednisone 20 mg tablet 40 mg PO DAILY 2 Days Qty: 4 0RF oseltamivir [Tamiflu] 75 mg capsule 75 mg PO BID 2 Days Qty: 4 0RF Continued valacyclovir 1,000 MG tablet 1,000 mg PO DAILY aripiprazole lauroxil 882 MG/3.2 ML suspension,extended rel syring 882 mg IM QMONTH gabapentin 300 MG capsule 300 mg PO TIDCM cholecalciferol (vitamin D3) 1,000 UNIT tablet 5,000 unit PO DAILY omeprazole 20 mg Tablet,Delayed Release (Dr/Ec) 20 mg PO DAILY bupropion HCl 300 mg tablet extended release 24 hr 300 mg PO DAILY acetaminophen 325 mg Tablet 650 mg PO Q4H PRN PRN (Reason: Fever, pain 1-10/10) Qty: 0 0RF albuterol sulfate [Ventolin HFA] 90 mcg/actuation HFA aerosol inhaler 1 - 2 puff inhalation Q4H PRN PRN (Reason: Wheezing) Qty: 1 0RF Eliquis 5 mg tablet 5 mg PO Q12H Mounjaro 5 mg/0.5 mL pen injector 5 mg subcut QWEEK Referrals / Follow Up: Afia Machado NP, [facility] [Primary Care Provider] - Disposition Disposition (needs filled in before D/C Order can be placed): Home, Self Care
--- NOTE | 2023-05-30 12:46 | DS.PCM_ITS ---
Providers Date of Admission: 05/27/23 Date of Discharge: 05/30/23 Primary Care Physician: LOUISE Solorio Reason For Visit: INFLUENZA A INFECTION, COPD EXACERBATION Diagnosis Discharge Diagnosis (1) Hypoxemia: Status: Acute Code(s): R09.02 - Hypoxemia (2) Acute exacerbation of chronic obstructive pulmonary disease (COPD): Status: Chronic Code(s): J44.1 - Chronic obstructive pulmonary disease with (acute) exacerbation (3) Influenza A with pneumonia: Status: Acute Code(s): J09.X1 - Influenza due to identified novel influenza A virus with pneumonia Medications at Discharge Home Medications valacyclovir 1 gram tablet 1,000 mg PO DAILY anti virus 08/12/18 aripiprazole lauroxil 882 mg/3.2 mL suspension, ext.rel. IM syringe 882 mg IM QMONTH mental health 09/12/18 cholecalciferol (vitamin D3) 25 mcg (1,000 unit) tablet 5,000 unit PO DAILY vitamin 07/02/20 gabapentin 300 mg capsule 300 mg PO TIDCM nerve pain 07/02/20 bupropion HCl 300 mg 24 hr tablet, extended release 300 mg PO DAILY mental health 09/04/22 omeprazole 20 mg tablet,delayed release 20 mg PO DAILY reflux 09/04/22 acetaminophen 325 mg tablet 650 mg (2 x 325 mg) PO Q4H PRN PRN Fever, pain 1- 10/10 #0 tabs 09/05/22 albuterol sulfate 90 mcg/actuation aerosol inhaler (Ventolin HFA) 1 - 2 puff inhalation Q4H PRN PRN Wheezing ##1 09/24/22 apixaban 5 mg tablet (Eliquis) 5 mg PO Q12H 05/27/23 tirzepatide 5 mg/0.5 mL subcutaneous pen injector (Mounjaro) 5 mg subcut QWEEK 05/27/23 oseltamivir 75 mg capsule (Tamiflu) 75 mg PO BID 2 days #4 caps 05/30/23 prednisone 20 mg tablet 40 mg (2 x 20 mg) PO DAILY 2 days #4 tabs 05/30/23 Hospital Course Operations None Procedures EKG and - (Chest x-ray) Summary of Care Provided Minutes Spent on Discharge: 35 Hospital Course: Patient is a 52-year-old female who presented to [facility] ED on 05/27/2023 with worsening cough and shortness of breath. Hospital course as noted below. Patient discharged home in stable condition on 05/30. 1. Influenza A infection, COPD exacerbation with acute hypoxia, concern for superimposed bacterial pneumonia Influenza A positive in ED. Recently diagnosed with COPD, PFTs done in 12/2022 showed moderate large airways obstructive ventilatory defect with no significant response to bronchodilators. Has not seen pulmonology in the office since then, only on home rescue inhaler with no long-acting inhalers. Not on home O2. Requiring 2 L nasal cannula in ED for hypoxia. Chest x-ray shows focal left lower lobe infiltrate. Febrile to 101.9F, tachycardic, tachypneic, hypertensive in the ED. WBC count 7000. Procalcitonin 0.15. BNP 148. Blood cultures and sputum culture negative. ? Treated with IV Solu-Medrol 40 mg daily, scheduled DuoNebs, Tamiflu while inpatient. Also treated with broad-spectrum antibiotics while inpatient given concern for underlying infection, discontinued on discharge. Discharged with prednisone and Tamiflu to complete 5-day course total. Case management followed, patient required 2 L supplemental oxygen with ambulation on testing on day of discharge, script provided for home supplemental oxygen. Patient is ambulatory at home and in the community. Recommended close outpatient follow-up with pulmonology. 2. Mild creatinine elevation, improving ? Creatinine 1.29 on admit, baseline creatinine appears to be around 1.0-1.2. Creatinine mildly improved to 1.19 on 05/28. Suspect patient was mildly dry in admission. Stable on discharge. 3. Type 2 diabetes mellitus with hyperglycemia, diabetic neuropathy ? Blood glucose 238 on admit. Last A1c 9.2% in 09/2022. Repeat A1c 7.0% on 05/28. Only on home tirzepatide weekly. Sliding-scale insulin while inpatient. Okay to resume home tirzepatide on discharge. 4. Elevated blood pressure readings, improved ? No history of hypertension, not on any home antihypertensives. BP is elevated to 170s to 190s systolic and up to 130s diastolic on admit. Suspect secondary to acute stress state. IV hydralazine was ordered, did not require any doses of this. Outpatient follow-up as needed. Chronic medical conditions: ? Morbid obesity: BMI 51 on admit. Complicates hospital course, care and prognosis. ? CAMMIE: Nonadherent to home CPAP. Nasal cannula at night while inpatient. Out patient follow-up with pulmonology as noted above. ? Bipolar disorder: Continue home Wellbutrin. Also receives monthly aripiprazole injection, last injection was about 1 week prior to admission. Has been on this regimen for several years with good stability in patient's mood. ? History of VTE: Bilateral PE diagnosed in 08/2022, unclear etiology. Continue home Eliquis. ? GERD: Continue home PPI. ? History of cigarette smoking Total clinical time spent by myself addressing the patient's discharge needs: 35 minutes. Physical Exam Const alert and oriented x3 Constitutional Narrative: Pleasant middle-aged female, morbidly obese, laying comfortably in bed, conversing normally, no acute distress. General Appearance: cooperative and comfortable HEENT normocephalic, head/scalp atraumatic, hearing grossly normal bilaterally, nasal mucous membranes and turbinates normal and moist oral mucous membranes Eyes PERRL, EOMs intact bilaterally and conjunctivae normal Neck full ROM, no lymphadenopathy and supple Lymph Lymphatic: no lymphadenopathy noted Chest inspection of chest normal Resp Resp Narrative: Breathing comfortably on 2 L nasal cannula. Mildly decreased breath sounds bilaterally throughout, no wheezing or crackles noted. Cardio regular rate, regular rhythm, no murmurs and peripheral pulses 2+ throughout GI normal to inspection, nondistended, normoactive bowel sounds, soft to palpation, non-tender and non-distended Back/Spine normal ROM Extremity normal to inspection, full ROM and no pedal edema Skin no rashes or lesions noted Neuro moves all extremities and no focal motor deficits Speech: speech normal Psych mental status grossly normal Weight / BMI Weight Weight: 128.4 kg Body Mass Index (BMI) 51.7 ABG / Lab / Microbiology Data 05/30/23 07:50 05/30/23 07:50 Laboratory: Laboratory Results - last 24 hr 05/29/23 16:49: POC Glucose 276 H 05/29/23 22:33: POC Glucose 213 H 05/30/23 06:30: POC Glucose 95 05/30/23 07:50: WBC 8.0, RBC 4.73, Hgb 13.9, Hct 44.5, MCV 94.1, MCH 29.4, MCHC 31.2 L, RDW Std Deviation 54.2 H, RDW Coeff of Serafin 15.8 H, Plt Count 260, MPV 9.4, Sodium 141, Potassium 4.0, Chloride 109 H, Carbon Dioxide 28.0, Anion Gap 4 L, BUN 23 H, Creatinine 1.00, Estim Creat Clear Calc 84.59, Est GFR (MDRD) Af Amer 75, Est GFR (MDRD) Non-Af 62, BUN/Creatinine Ratio 23.0 H, Glucose 93, Calcium 9.0 05/30/23 11:23: POC Glucose 205 H Microbiology: Microbiology 05/28/23 16:05 Urine, Clean Catch Legionella Antigen - Final 05/28/23 16:05 Urine, Clean Catch Streptococcus pneumoniae Antigen (M - Final 05/27/23 11:18 Mucosa - Nose SARS-CoV-2, Influenza & RSV (PCR) - Final Influenzae A D/C Instructions Discharge Diet: No restrictions Weight Bearing Status: Full weight bearing Meaningful Use Info Meaningful Use Diagnoses (Choose all that apply): None applicable Discharge Plan Admission Admit Date/Time: 05/27/23 12:52 Primary Reason for Your Visit: cough and shortness of breath Attending Provider: Nilson Green Primary Care Provider: Afia Machado CABLE INSTALLATION TECHNICIAN Instructions Additional Instructions / Restrictions: Please take 2 more days of Tamiflu and prednisone to complete 5-day courses of flu medication and steroids. Please follow-up with your primary care doctor in the office in the next few weeks and with the lung doctor as previously scheduled. Discharge Orders/Prescriptions Prescriptions: New prednisone 20 mg tablet 40 mg PO DAILY 2 Days Qty: 4 0RF oseltamivir [Tamiflu] 75 mg capsule 75 mg PO BID 2 Days Qty: 4 0RF Continued valacyclovir 1,000 MG tablet 1,000 mg PO DAILY aripiprazole lauroxil 882 MG/3.2 ML suspension,extended rel syring 882 mg IM QMONTH gabapentin 300 MG capsule 300 mg PO TIDCM cholecalciferol (vitamin D3) 1,000 UNIT tablet 5,000 unit PO DAILY omeprazole 20 mg Tablet,Delayed Release (Dr/Ec) 20 mg PO DAILY bupropion HCl 300 mg tablet extended release 24 hr 300 mg PO DAILY acetaminophen 325 mg Tablet 650 mg PO Q4H PRN PRN (Reason: Fever, pain 1-01/25) Qty: 0 0RF albuterol sulfate [Ventolin HFA] 90 mcg/actuation HFA aerosol inhaler 1 - 2 puff inhalation Q4H PRN PRN (Reason: Wheezing) Qty: 1 0RF Eliquis 5 mg tablet 5 mg PO Q12H Mounjaro 5 mg/0.5 mL pen injector 5 mg subcut QWEEK Referrals / Follow Up: Afia Machado CABLE INSTALLATION TECHNICIAN, [facility]ST[employer]ATION [facility]NIC[facility] [Primary Care Provider] - Disposition Disposition (needs filled in before D/C Order can be placed): Home, Self Care Charges/Coding Visit Charges Inpatient E&M: 26746 Disch Hosp >30min
[2023-05-30 13:18] VITALS: BP 144/84; PULSE 69; RESP 20; TEMP 36.4; O2SAT 96
--- NOTE | 2023-05-30 14:08 | CASEMGMT ---
Patient has order for discharge. Patient will need oxygen at discharge. Script received and sent to [employer], patient's preferred DME company. Portable tank arranged to be delivered to room. RN CM in to discuss needs at discharge. Patient denied additional needs or help at discharge. Patient had no further questions or concerns.
--- NOTE | 2023-05-30 14:19 | PHA.DC_ITS ---
Pharmacy [facility] has performed discharge medication reconciliation and counseling for this patient. Counseled via telephone due to droplet precautions. 1. OSELTAMIVIR 75MG PO BID X 2 DAYS 2. PREDNISONE 40MG PO DAILY X 2 DAYS The patient's discharge medication list was reviewed for discrepancies and discrepancies were resolved. The patient was counseled on the following discharge medications and changes in medications for homegoing were reviewed. The Reason for Use, instructions for use, and potential side effects were revi ewed for all new medications. The patient's questions regarding all of their medications were answered. The patient was able to verbally demonstrate an understanding of their discharge medications. Medications at Discharge Home Medications valacyclovir 1 gram tablet 1,000 mg PO DAILY anti virus 08/12/18 aripiprazole lauroxil 882 mg/3.2 mL suspension, ext.rel. IM syringe 882 mg IM QMONT mental health 09/12/18 cholecalciferol (vitamin D3) 25 mcg (1,000 unit) tablet 5,000 unit PO DAILY vitamin 07/02/20 gabapentin 300 mg capsule 300 mg PO TIDCM nerve pain 07/02/20 bupropion HCl 300 mg 24 hr tablet, extended release 300 mg PO DAILY mental health 09/04/22 omeprazole 20 mg tablet,delayed release 20 mg PO DAILY reflux 09/04/22 acetaminophen 325 mg tablet 650 mg (2 x 325 mg) PO Q4H PRN PRN Fever, pain 1- 10/10 #0 tabs 09/05/22 albuterol sulfate 90 mcg/actuation aerosol inhaler (Ventolin HFA) 1 - 2 puff inhalation Q4H PRN PRN Wheezing ##1 09/24/22 apixaban 5 mg tablet (Eliquis) 5 mg PO Q12H 05/27/23 tirzepatide 5 mg/0.5 mL subcutaneous pen injector (Mounjaro) 5 mg subcut QWEEK 05/27/23 oseltamivir 75 mg capsule (Tamiflu) 75 mg PO BID 2 days #4 caps 05/30/23 prednisone 20 mg tablet 40 mg (2 x 20 mg) PO DAILY 2 days #4 tabs 05/30/23
== END 2023-05-30 16:14 | disposition home or self-care (01) | DRG 191 ==
LOC: ED 09:48 → PCU 13:21
PROVIDERS: Admitting Provider Hospitalist; Emergency Provider Emergency Medicine; PCP Nurse Practitioner Family; Visit Provider Hospitalist
DX: J44.1 Chronic obstructive pulmonary disease with (acute) exacerbation (principal); Z68.43 Body mass index [BMI] 50.0-59.9, adult; J10.08 Influenza due to other identified influenza virus with other specified pneumonia; E11.40 Type 2 diabetes mellitus with diabetic neuropathy, unspecified; J44.0 Chronic obstructive pulmonary disease with (acute) lower respiratory infection; F31.9 Bipolar disorder, unspecified; E66.01 Morbid (severe) obesity due to excess calories; E11.65 Type 2 diabetes mellitus with hyperglycemia; G47.33 Obstructive sleep apnea (adult) (pediatric); F17.210 Nicotine dependence, cigarettes, uncomplicated; K21.9 Gastro-esophageal reflux disease without esophagitis; R94.4 Abnormal results of kidney function studies; R09.02 Hypoxemia; R03.0 Elevated blood-pressure reading, without diagnosis of hypertension; Z91.199 Patient's noncompliance with other medical treatment and regimen due to unspecified reason; Z79.01 Long term (current) use of anticoagulants; Z79.85 Long-term (current) use of injectable non-insulin antidiabetic drugs; Z79.899 Other long term (current) drug therapy; Z86.711 Personal history of pulmonary embolism
CPT/HCPCS: 36415; 71046; 80048; 80202; 82962; 83036; 83880; 84145; 84484; 85025; 85027; 87040; 87449; 87631; 93005; 94640; 94668; 97802; 99282; 99406; J7040; J7050; A4216

== ENCOUNTER 2023-07-29 16:02 | Inpatient (IN) | payer MEDICARE, MEDICAID, SELFPAY ==
[2023-07-29] VITALS (10 sets, daily range): BP systolic 126–185; BP diastolic 77–115; PULSE 85–94; RESP 16–33; TEMP 36.6–37.5; O2SAT 96–98; BMI 50.5; BMI 49.5
--- NOTE | 2023-07-29 16:14 | EKG12_ITS ---
Test Reason : Blood Pressure : / mmHG Vent. Rate : 091 BPM Atrial Rate : 091 BPM P-R Int : 118 ms QRS Dur : 092 ms QT Int : 346 ms P-R-T Axes : 038 -55 063 degrees QTc Int : 425 ms Normal sinus rhythm Left anterior fascicular block Moderate voltage criteria for LVH, may be normal variant ( R in aVL , [place] product ) Abnormal ECG Confirmed by Sen Gonzales ([id number]), film editor supervisor ARTHUR MONGE ([id number]) on 08/01/2023 6:34:48 AM Referred By: Confirmed By:Sen Gonzales
--- NOTE | 2023-07-29 16:15 | EDS_ITS ---
HPI History of Present Illness Chief Complaint: Shortness of Breath Detail of Chief Complaint: Shortness of breath and syncope Informant: patient Narrative Narrative: Patient presents to the emergency department with complaint shortness of breath for about a month. Patient on 2 L nasal cannula O2 at all times. Patient states that she was started about a year ago on O2 after being diagnosed with pulmonary emboli. Patient has been taking her Eliquis regularly. She has had cough and at times bring up some phlegm. Today she went to urinate and sat on the toilet and then she must of passed out because she woke up and her head was kind of dangling over the toilet but her but was still on the toilet. She denies injury. She called EMS. Patient does not have history of CHF. She does not smoke. [facility] Medical History (Updated 07/29/23 @ 18:[address] Aundrea Espinoza, ) Acute respiratory failure Anxiety Bilateral pulmonary embolism BiPAP (biphasic positive airway pressure) dependence Bipolar disorder Bipolar disorder Cellulitis and abscess of neck Chronic back pain Chronic pain Depression Diabetes Kidney stones Bahman's angina Non-healing surgical wound Pulmonary embolism Pulmonary infarction Schizophrenia Smoker Tobacco abuse Upper airway obstruction Home Medications valacyclovir 1 gram tablet 1,000 mg PO DAILY anti virus 08/12/18 [History Last Taken 05/26/23] aripiprazole lauroxil 882 mg/3.2 mL suspension, ext.rel. IM syringe 882 mg IM QMONTH mental health 09/12/18 [History Last Taken 05/18/23] cholecalciferol (vitamin D3) 25 mcg (1,000 unit) tablet 5,000 unit PO DAILY vitamin 07/02/20 [History Last Taken 05/26/23] gabapentin 300 mg capsule 300 mg PO TIDCM nerve pain 07/02/20 [History Last Taken 05/26/23] bupropion HCl 300 mg 24 hr tablet, extended release 300 mg PO DAILY mental health 09/04/22 [History Last Taken 05/26/23] omeprazole 20 mg tablet,delayed release 20 mg PO DAILY reflux 09/04/22 [History Last Taken 05/26/23] acetaminophen 325 mg tablet 650 mg (2 x 325 mg) PO Q4H PRN PRN Fever, pain 1- 10/10 #0 tabs 09/05/22 [Rx Last Taken 05/26/23] albuterol sulfate 90 mcg/actuation aerosol inhaler (Ventolin HFA) 1 - 2 puff inhalation Q4H PRN PRN Wheezing ##1 09/24/22 [Rx Last Taken Unknown] apixaban 5 mg tablet (Eliquis) 5 mg PO Q12H 05/27/23 [History Last Taken Unknown] tirzepatide 5 mg/0.5 mL subcutaneous pen injector (Mounjaro) 5 mg subcut QWEEK 05/27/23 [History Last Taken 05/20/23] oseltamivir 75 mg capsule (Tamiflu) 75 mg PO BID 2 days #4 caps 05/30/23 [Rx Last Taken Unknown] prednisone 20 mg tablet 40 mg (2 x 20 mg) PO DAILY 2 days #4 tabs 05/30/23 [Rx Last Taken Unknown] Allergy/AdvReac Type Severity Reaction Status Date / Time prednisone AdvReac Other Verified 05/27/23 09:25 Sulfa (Sulfonamide AdvReac Rash Verified 05/27/23 09:25 Antibiotics) Surgical History History of adenoidectomy History of cholecystectomy Social History Smoking Status: Current every day smoker tobacco type: cigarettes Tobacco: How many years used: 30 second hand exposure: Yes alcohol intake: current alcohol intake frequency: holidays/special occasions only substance use type: does not use ROS ROS ED Review of Systems ROS Unobtainable: other Constitutional Constitutional ED: Reports lethargy; Denies chills, fever(s), sweats or weight loss Eyes Eyes: Denies blurry vision, change in vision or diplopia ENT ENT ED: Denies rhinorrhea or sore throat Cardiovascular Cardiovascular: Denies chest pain, orthopnea or racing heartbeat Respiratory/Chest Respiratory/Chest: Reports cough, dyspnea and dyspnea on exertion; Denies orthopnea or sputum Gastrointestinal Gastrointestinal: Denies abdominal pain, diarrhea, nausea or vomiting Genitourinary Genitourinary ED: Denies dysuria, hematuria or urinary frequency Musculoskeletal Musculoskeletal: Denies arthralgias, back pain, myalgias or neck pain Integumentary Denies abscess, Abrasions or rash Neurologic Neurologic: Reports other Details: Syncope ; Denies headache(s) or weakness Psychiatric Psychiatric: Denies anxiety, depression or suicidal thoughts Endocrine Endocrinology: Denies polydipsia, polyphagia or polyuria Hematologic/Lymphatic Hematologic/Lymphatic: Denies easy bleeding, easy bruising or lymphadenopathy Allergic/Immunologic Allergic/Immunologic ED: Denies mouth swelling, tongue swelling or urticaria EXAM Physical Exam Const Vital Signs: 07/29/23 16:03 07/29/23 16:30 07/29/23 16:43 Temperature 99.5 F H Temperature Source Oral Pulse Rate 94 85 Respiratory Rate 33 H 18 Respiratory Effort Respiratory Depth Respiratory Pattern Normal Blood Pressure 185/115 H Blood Pressure Mean 138 Pulse Ox 98 Oxygen Delivery Method Nasal Cannula Nasal Cannula Oxygen Flow Rate (L/min) 2 2 07/29/23 16:43 07/29/23 16:05 07/29/23 17:05 Temperature 99.5 F H 99.5 F H Temperature Source Temporal Oral Pulse Rate 92 88 Respiratory Rate 25 H 28 H Respiratory Effort Short of Breath Labored Respiratory Depth Shallow Respiratory Pattern Tachypnea Blood Pressure 164/115 H 144/93 H Blood Pressure Mean 131 110 Pulse Ox 97 98 Oxygen Delivery Method Nasal Cannula Nasal Cannula Room Air Oxygen Flow Rate (L/min) 2 2 Positive well nourished and well developed General Appearance ED: well developed and NAD HEENT Reports TM's clear and moist mucous membranes normocephalic and atraumatic; Negative for trauma or tenderness Tympanic Membrane ED: Yes TM's clear Eyes PERRL and EOMs intact bilaterally General Eye ED: Negative for pale conjunctiva or scleral icterus Neck no lymphadenopathy, supple and no JVD General: Negative for tenderness Chest Wall inspection of chest normal and palpation of chest normal Chest: Negative for tenderness Resp normal respiratory effort and clear to auscultation bilaterally Resp Narrative: Few faint wheezes bilaterally. Mild tachypnea. No accessory muscle use or retractions. Effort and Inspection: Negative for respiratory distress or pain with movement Auscultation: Negative for rhonchi, wheezes or diminished lung sounds Cardio regular rate, regular rhythm, S1 normal heart sound, S2 normal heart sound and no murmurs Peripheral Pulses: pulses 2+ throughout GI normal to inspection, nondistended, normoactive bowel sounds, soft to palpation, non-tender, non-distended and no masses Back/Spine no CVA tenderness and no thoracic nor lumbar tenderness Extremity normal to inspection General Extremety ED: Negative for edema General Extremity: Negative for edema Neuro oriented x3, CN's II-XII intact bilaterally, no sensory deficits noted and gait normal Sensorium / Orientation: awake, alert, oriented to person, oriented to place and oriented to time Motor Exam: strength 5/5 throughout and strength abnormal Psych mental status grossly normal Skin no rashes or lesions noted and no wounds MDM MDM MDM Narrative Medical decision making narrative: Patient presents with shortness of breath and cough with low-grade fever. IV line established. Blood cultures ordered. CBC with differential white count 12.7 with hemoglobin 14.2 and platelet count of 348. Chemistries unremarkable. EKG obtained arrival showed a sinus rhythm with rate of 91 bpm with LVH. Troponin was normal at 31 and BNP was elevated to 66.8. Lactate was elevated 2.1. Urinalysis concerning for UTI. Chest x-ray 1 view showed increased markings in the lower lobes suspicious for infiltrate. Patient was started on Levaquin IV. I did give patient a DuoNeb aerosol and started on Solu-Medrol. She does have history of COPD. Will discuss case with hospitalist to evaluate patient for admission as she continues to be tachypneic. Lab Data Attestation: I reviewed the patient's lab results. Labs: Laboratory Results - last 24 hr 07/29/23 07/29/23 16:30 17:51 WBC 12.7 H RBC 5.04 Hgb 14.2 Hct 44.8 MCV 88.9 MCH 28.2 MCHC 31.7 L RDW Std Deviation 53.5 H RDW Coeff of Serafin 16.5 H Plt Count 348 MPV 9.8 Immature Gran % (Auto) 4.400 H Neut % (Auto) 78.9 H Lymph % (Auto) 9.0 L [place] % (Auto) 6.8 Eos % (Auto) 0.3 Baso % (Auto) 0.6 Absolute Neuts (auto) 10.0 H Absolute Lymphs (auto) 1.14 Nucleated RBC % 0 Sodium 132 L Potassium 4.8 Chloride 99 Carbon Dioxide 29.0 Anion Gap 4 L BUN 17 Creatinine 1.11 H Estim Creat Clear Calc 75.12 Est GFR (MDRD) Af Amer 66 Est GFR (MDRD) Non-Af 55 L BUN/Creatinine Ratio 15.3 Glucose 215 H Lactic Acid 2.1 H* Calcium 9.1 Troponin I High Sens 31 B-Natriuretic Peptide 266.8 H Urine Color Yellow Urine Clarity Sl. Cloudy Urine pH 6.0 Ur Specific [place] 1.010 Urine Protein 100 H Urine Glucose (UA) Normal Urine Ketones Negative Urine Occult Blood 25 H Urine Nitrite Positive H Urine Bilirubin 1 H Urine Urobilinogen 1 H Ur Leukocyte Esterase 500 H Radiography Diagnostic Testing: Clinical Impression(s) from Imaging Studies Chest X-Ray 07/29/23 16:37 IMPRESSION: 1. Heterogeneous opacities involving the lung bases may represent atelectasis versus infiltrate. 2. Bronchitis or asthma. Electronically Signed: Marcel Gunderson MD at 17:09 EDT , 1 view x-ray obtained interpreted by myself as increased markings in the bases which I suspect may be atelectasis versus infiltrate. Radiology was in agreement. EKG Initial EKG: Attestation: I personally reviewed and interpreted this EKG as follows: Comments: Sinus rhythm with rate of 91 bpm with voltage criteria for for LVH. Discharge Plan Triage Chief Complaint: Shortness of Breath ED Provider: Aundrea Espinoza Dx/Rx/DC Orders Clinical Impression: UTI (urinary tract infection), Dyspnea, Leukocytosis, Pneumonia, Acidosis, lactic Prescriptions: No Action valacyclovir 1,000 MG tablet 1,000 mg PO DAILY aripiprazole lauroxil 882 MG/3.2 ML suspension,extended rel syring 882 mg IM QMONTH gabapentin 300 MG capsule 300 mg PO TIDCM cholecalciferol (vitamin D3) 1,000 UNIT tablet 5,000 unit PO DAILY omeprazole 20 mg Tablet,Delayed Release (Dr/Ec) 20 mg PO DAILY bupropion HCl 300 mg tablet extended release 24 hr 300 mg PO DAILY acetaminophen 325 mg Tablet 650 mg PO Q4H PRN PRN (Reason: Fever, pain 1-01/25) Qty: 0 0RF albuterol sulfate [Ventolin HFA] 90 mcg/actuation HFA aerosol inhaler 1 - 2 puff inhalation Q4H PRN PRN (Reason: Wheezing) Qty: 1 0RF Eliquis 5 mg tablet 5 mg PO Q12H Mounjaro 5 mg/0.5 mL pen injector 5 mg subcut QWEEK prednisone 20 mg tablet 40 mg PO DAILY 2 Days Qty: 4 0RF oseltamivir [Tamiflu] 75 mg capsule 75 mg PO BID 2 Days Qty: 4 0RF Primary Care Provider: Afia Machado NP Referrals: Afia Machado NP, [facility] [Primary Care Provider] - Disposition Disposition: Acute Care Hospital [facility]
[2023-07-29] MEDS: Ipratropium/Albuterol Sulfate 3 ML AMPUL.NEB INHALATION (16:20)
--- NOTE | 2023-07-29 16:37 | RAD_ITS ---
EXAM: XR CHEST, 1 VIEW CLINICAL INDICATION: dyspnea TECHNIQUE: Frontal view of the chest. COMPARISON: No relevant prior studies available. FINDINGS: LUNGS AND PLEURAL SPACES: Central bronchial wall thickening can be seen with bronchitis or asthma, age indeterminate. Heterogeneous opacities involving the lung bases may represent atelectasis versus infiltrate. No pleural effusion or pneumothorax. HEART: Fullness of the cardiac silhouette on a portable examination is indeterminate. MEDIASTINUM: Central airways and mediastinal contour are unremarkable. BONES/JOINTS: Degenerative changes of the spine. No acute fracture. SOFT TISSUES: Unremarkable. RAD/Chest 1 View (Portable) IMPRESSION: 1. Heterogeneous opacities involving the lung bases may represent atelectasis versus infiltrate. 2. Bronchitis or asthma. Electronically Signed: Marcel Gunderson MD at 17:09 EDT ,
[2023-07-29 16:50] LABS: Absolute Lymphocyte Count 1.14 X10^3/uL (0.83-4.51); Basophil# 0.08 X10^3/uL; Basophil% 0.6 % (0-1); Eosinophil# 0.04 X10^3/uL; Eosinophils% 0.3 % (0-5); Hematocrit 44.8 % (37-47); Hemoglobin 14.2 g/dL (12.0-15.0); Lymphocyte # 1.14 X10^3/ul (0.83-4.51); Mean Corp Hgb Conc 31.7 g/dL (32-36); Mean Corpuscular Hgb 28.2 pg (27.0-32.0); Mean Corpuscular Volume 88.9 fL (81-99); Mean Platelet Vol. 9.8 fl (6.2-12.0); Monocyte# 0.87 X10^3/uL; Monocyte% 6.8 % (0-10); NRBC Flagged by Analyzer 0 % (0-5); Neutrophil # 10.03 X10^3/uL (2.7-7.7); Neutrophil % 78.9 % (47-70); Platelet Count 348 K/mm3 (150-450); RBC Distribution Width CV 16.5 % (11.6-14.6); RBC Distribution Width SD 53.5 fl (35.1-43.9); Red Blood Count 5.04 M/mm3 (4.2-5.4); White Blood Count 12.7 K/mm3 (4.4-11.0)
[2023-07-29 17:06] LABS: Anion Gap 4 (5-15); BUN 17 mg/dL (7-18); BUN/Creat Ratio 15.3 RATIO (10-20); Calcium,Total 9.1 mg/dL (8.5-10.1); Chloride 99 mmol/L (98-107); Creatinine, Serum 1.11 mg/dL (0.55-1.02); EST Glomerular Filtration Rate 55 mL/min (>60); Est Glom Filt Rate - Afr Amer 66 mL/min (>60); Estimated Creatinine Clearance 75.12 ml/min; Glucose 215 mg/dL (74-106); Potassium 4.8 mmol/L (3.5-5.1); Sodium Level 132 mmol/L (136-145); Troponin-I HS 31 pg/mL (3.0-54.0)
[2023-07-29 17:10] LABS: BNP,B-Type NATRIURETIC PEPTIDE 266.8 pg/mL (0-100)
[2023-07-29 17:20] LABS: Lactic Acid 2.1 mmol/L (0.4-1.9)
[2023-07-29 17:55] LABS: Mucous, Urine 0 SEEN /hpf (<or=2+)
[2023-07-29 17:58] LABS: Color, Urine Yellow (Yellow); Glucose, Dipstick Normal (Normal); Ketone-Dipstick Negative (Negative); Leukocyte Esterase-Dipstick 500 /ul (Negative); Nitrite-Dipstick Positive (Negative); Occult Blood-Urine 25 /ul (Negative); Protein-Dipstick 100 mg/dl (Negative); Urine Clarity Sl. Cloudy (Clear); Urine Urobilinogen 1 mg/dl (Normal)
[2023-07-29 17:59] LABS: Urine Bilirubin Dipstick 1 mg/dL (Negative)
[2023-07-29 18:14] LABS: Bacteria 4+ /hpf (None Seen); Red Blood Cells-Urine 0-5 SEEN /hpf (0-5); Squamous Epithelial Cells - UA 5-10 SEEN /hpf (5-10); White Blood Cells 10-25 SEEN /hpf (0-5)
--- NOTE | 2023-07-29 18:16 | ED.RN ---
PT IS NOT A SEPSIS ALERT PER DR HOUGH AND DR SORIA. SEPSIS CHECKLIST COMPLETED
[2023-07-29] MEDS: MethylPREDNISolone 125 MG/2 ML Vial 60 MG IV (18:23)
[2023-07-29] MEDS: levoFLOXacin IV 750 MG/150 ML BAG 100 MG IV (18:24)
--- NOTE | 2023-07-29 18:53 | PCM.HP.STD ---
HPI - General General Date of Admission: 07/29/23 HPI Narrative MANUEL HORN, is a 52 F who presents to the hospital with syncope as well as pneumonia and possible UTI. She has been feeling feverish and chilled for the last couple of days, white count 12.7. She does have a history of COPD and hypoxia secondary to a PE and she is maintained on her 2 L nasal cannula. She states that she was sitting on the toilet going to the bathroom and then she woke up still on the toilet but her head was resting on the vanity. She denies any injuries and the series of events seems to be vasovagal in origin. Chest x-ray demonstrated bilateral lower lobe opacities. She was given a dose of steroids as well as Levaquin in the ER. She did have a slight elevation in her lactic acid to 2.1 and her UA is consistent with a UTI as well though she denies any dysuria. [facility], [facility] Medical History (Updated 07/29/23 @ 18:[address] Aundrea Espinoza, DO) Acute respiratory failure Anxiety Bilateral pulmonary embolism BiPAP (biphasic positive airway pressure) dependence Bipolar disorder Bipolar disorder Cellulitis and abscess of neck Chronic back pain Chronic pain Depression Diabetes Kidney stones Bahman's angina Non-healing surgical wound Pulmonary embolism Pulmonary infarction Schizophrenia Smoker Tobacco abuse Upper airway obstruction Home Medications valacyclovir 1 gram tablet 1,000 mg PO DAILY anti virus 08/12/18 [History Last Taken 05/26/23] aripiprazole lauroxil 882 mg/3.2 mL suspension, ext.rel. IM syringe 882 mg IM QMONTH mental health 09/12/18 [History Last Taken 05/18/23] cholecalciferol (vitamin D3) 25 mcg (1,000 unit) tablet 5,000 unit PO DAILY vitamin 07/02/20 [History Last Taken 05/26/23] gabapentin 300 mg capsule 300 mg PO TIDCM nerve pain 07/02/20 [History Last Taken 05/26/23] bupropion HCl 300 mg 24 hr tablet, extended release 300 mg PO DAILY mental health 09/04/22 [History Last Taken 05/26/23] omeprazole 20 mg tablet,delayed release 20 mg PO DAILY reflux 09/04/22 [History Last Taken 05/26/23] acetaminophen 325 mg tablet 650 mg (2 x 325 mg) PO Q4H PRN PRN Fever, pain 1-01/25 #0 tabs 09/05/22 [Rx Last Taken 05/26/23] albuterol sulfate 90 mcg/actuation aerosol inhaler (Ventolin HFA) 1 - 2 puff inhalation Q4H PRN PRN Wheezing ##1 09/24/22 [Rx Last Taken Unknown] apixaban 5 mg tablet (Eliquis) 5 mg PO Q12H 05/27/23 [History Last Taken Unknown] tirzepatide 5 mg/0.5 mL subcutaneous pen injector (Mounjaro) 5 mg subcut QWEEK 05/27/23 [History Last Taken 05/20/23] oseltamivir 75 mg capsule (Tamiflu) 75 mg PO BID 2 days #4 caps 05/30/23 [Rx Last Taken Unknown] prednisone 20 mg tablet 40 mg (2 x 20 mg) PO DAILY 2 days #4 tabs 05/30/23 [Rx Last Taken Unknown] Allergy/AdvReac Type Severity Reaction Status Date / Time prednisone AdvReac Other Verified 05/27/23 09:25 Sulfa (Sulfonamide AdvReac Rash Verified 05/27/23 09:25 Antibiotics) Family History adopted adopted Surgical History History of adenoidectomy History of cholecystectomy Social History Smoking Status: Current every day smoker tobacco type: cigarettes Tobacco: How many years used: 30 second hand exposure: Yes alcohol intake: current alcohol intake frequency: holidays/special occasions only substance use type: does not use ROS Constitutional Constitutional: Reports chills, fatigue and fever(s); Denies malaise Eyes Eyes: Denies blurry vision ENT HEENT: Denies headache(s) or nasal discharge Cardiovascular Cardiovascular: Reports syncope; Denies chest pain or dyspnea on exertion Respiratory/Chest Respiratory/Chest: Reports cough and shortness of breath at rest; Denies shortness of breath with exertion Gastrointestinal Gastrointestinal: Denies constipation, diarrhea, nausea or vomiting Genitourinary Genitourinary: Denies dysuria Neurologic Neurologic: Denies focal weakness, numbness or tremor(s) Psychiatric Psychiatric: Denies anxiety or depression Vital Signs Vital Signs Vital Signs: 07/29/23 16:03 07/29/23 16:30 07/29/23 16:43 Temperature 99.5 F H Temperature Source Oral Pulse Rate 94 85 Respiratory Rate 33 H 18 Respiratory Effort Respiratory Depth Respiratory Pattern Normal Blood Pressure 185/115 H Blood Pressure Mean 138 Pulse Ox 98 Oxygen Delivery Method Nasal Cannula Nasal Cannula Oxygen Flow Rate (L/min) 2 2 07/29/23 16:43 07/29/23 16:05 07/29/23 17:05 Temperature 99.5 F H 99.5 F H Temperature Source Temporal Oral Pulse Rate 92 88 Respiratory Rate 25 H 28 H Respiratory Effort Short of Breath Labored Respiratory Depth Shallow Respiratory Pattern Tachypnea Blood Pressure 164/115 H 144/93 H Blood Pressure Mean 131 110 Pulse Ox 97 98 Oxygen Delivery Method Nasal Cannula Nasal Cannula Room Air Oxygen Flow Rate (L/min) 2 2 07/29/23 18:00 07/29/23 18:00 07/29/23 18:29 Temperature 99.5 F H 98.2 F Temperature Source Oral Pulse Rate 90 90 87 Respiratory Rate 26 H 24 H 24 H Respiratory Effort Respiratory Depth Respiratory Pattern Blood Pressure 141/93 H 141/93 H 141/93 H Blood Pressure Mean 109 109 109 Pulse Ox 98 98 98 Oxygen Delivery Method Room Air Nasal Cannula Oxygen Flow Rate (L/min) 2 Weight Weight: 276 lb 10.882 oz Body Mass Index (BMI) 50.5 Physical Exam Narrative General: Alert, Oriented x3, Cooperative, No apparent distress HEENT: Atraumatic, PERRLA, EOMI, Normocephalic Oral: Moist Mucosa, hoarse voice from coughing Neck: Supple, No JVD Lungs: Diminished, Normal air movement, No rhonchi, No wheeze, No rales, tachypneic Cardiovascular: Regular rate, Regular Rhythm, Normal S1, Normal S2, No murmurs Abdomen: Soft, Non Tender, Non-Distended, No Hepato-splenomegaly Extremities: No edema, Capillary Refill Less than 3 Seconds Skin: No rashes, No breakdown Musculoskeletal: No Tenderness to Palpation of Joints or Extremities Neurological: No focal neurological deficits, Motor Exam 5/5 strength throughout, Sensory exam intact to light touch and pain Psych/Mental Status: Flat Results Lab / Micro Data 07/29/23 16:30 07/29/23 16:30 Labs: Laboratory Results - last 24 hr 07/29/23 16:30: WBC 12.7 H, RBC 5.04, Hgb 14.2, Hct 44.8, MCV 88.9, MCH 28.2, MCHC 31.7 L, RDW Std Deviation 53.5 H, RDW Coeff of Serafin 16.5 H, Plt Count 348, MPV 9.8, Immature Gran % (Auto) 4.400 H, Neut % (Auto) 78.9 H, Lymph % (Auto) 9.0 L, [place] % (Auto) 6.8, Eos % (Auto) 0.3, Baso % (Auto) 0.6, Absolute Neuts (auto) 10.0 H, Absolute Lymphs (auto) 1.14, Nucleated RBC % 0, Sodium 132 L, Potassium 4.8, Chloride 99, Carbon Dioxide 29.0, Anion Gap 4 L, BUN 17, Creatinine 1.11 H, Estim Creat Clear Calc 75.12, Est GFR (MDRD) Af Amer 66, Est GFR (MDRD) Non-Af 55 L, BUN/Creatinine Ratio 15.3, Glucose 215 H, Lactic Acid 2.1 H*, Calcium 9.1, Troponin I High Sens 31, B-Natriuretic Peptide 266.8 H 07/29/23 17:51: Urine Color Yellow, Urine Clarity Sl. Cloudy, Urine pH 6.0, Ur Specific [place] 1.010, Urine Protein 100 H, Urine Glucose (UA) Normal, Urine Ketones Negative, Urine Occult Blood 25 H, Urine Nitrite Positive H, Urine Bilirubin 1 H, Urine Urobilinogen 1 H, Ur Leukocyte Esterase 500 H, Urine RBC 0-5 SEEN, Urine WBC 10-25 SEEN, Ur Squamous Epith Cells 5-10 SEEN, Urine Bacteria 4+, Urine Mucus 0 SEEN Micro: Microbiology 07/29/23 16:30 Mucosa - Nose SARS-CoV-2, Influenza & RSV (PCR) - Final Imaging Radiology Impression Chest X-Ray 07/29/23 16:37 IMPRESSION: 1. Heterogeneous opacities involving the lung bases may represent atelectasis versus infiltrate. 2. Bronchitis or asthma. Electronically Signed: Marcel Gunderson MD at 17:09 EDT , Assessment & Plan Assessment/Plan (1) Pneumonia: (2) UTI (urinary tract infection): PLAN: Plan 1. Vasovagal syncope in the setting of pneumonia and UTI ? No further workup for her syncopal episode ? Continue with Rocephin and azithromycin for her pneumonia and UTI ? Sputum cultures pending as is urine culture ? Will obtain Legionella and strep antigens 2. COPD exacerbation ? She is not requiring any increased oxygen however she is wheezing on exam and given the pneumonia will continue with DuoNebs and steroids though could likely wean the steroids quickly 3. History of a PE ? Will have to restart anticoagulation once verified 4. Bipolar disorder/anxiety ? Can resume her home medications when verified ? Stable 5. GERD ? Stable ? Continue with PPI when verified DVT: Heparin 75 minutes was spent on direct patient care, including documentation as well as chart review and collaboration with colleagues Charges/Coding Visit Charges Inpatient E&M: 57030 Init Hosp L3
[2023-07-29 20:40] LABS: Reflex Lactate? Y
[2023-07-29] MEDS: Heparin Injection (Vial) 5,000 UNIT/ML VIAL 5000 UNIT SC (21:00)
[2023-07-29] MEDS: 0.9% Saline Lock 10 ML Syringe IV (21:01)
[2023-07-29 21:43] LABS: Lactic Acid 1.1 mmol/L (0.4-1.9)
[2023-07-29 23:57] LABS: Amphetamine Urine VISTA NEGATIVE (<1000 ng/mL); Barbiturate Urine VISTA NEGATIVE (< 200 ng/mL); Benzodiazepine Urine VISTA NEGATIVE (< 200 ng/mL); Cocaine Urine VISTA NEGATIVE (< 300 ng/mL); Ecstacy Urine VISTA NEGATIVE (< 500 ng/mL); Methadone Urine VISTA NEGATIVE (< 300 ng/mL); PCP Urine VISTA NEGATIVE (< 25 ng/mL); THC Urine VISTA NEGATIVE (< 50 ng/mL); Vista UDS pH Range 5
[2023-07-30] VITALS (10 sets, daily range): BP systolic 97–135; BP diastolic 61–90; PULSE 71–87; RESP 16–22; TEMP 35.9–36.7; O2SAT 92–95
[2023-07-30 04:59] LABS: Absolute Lymphocyte Count 0.79 X10^3/uL (0.83-4.51); Absolute Neutrophil Count 11.7 X10^3/uL (2.0-7.7); Basophil# 0.04 X10^3/uL; Basophil% 0.3 % (0-1); Eosinophil# 0.01 X10^3/uL; Eosinophils% 0.1 % (0-5); Hematocrit 44.6 % (37-47); Hemoglobin 14.1 g/dL (12.0-15.0); Lymphocyte # 0.79 X10^3/ul (0.83-4.51); Mean Corp Hgb Conc 31.6 g/dL (32-36); Mean Corpuscular Volume 88.5 fL (81-99); Mean Platelet Vol. 9.8 fl (6.2-12.0); Monocyte# 0.26 X10^3/uL; NRBC Flagged by Analyzer 0 % (0-5); Neutrophil # 11.65 X10^3/uL (2.7-7.7); Neutrophil % 88.9 % (47-70); Platelet Count 316 K/mm3 (150-450); RBC Distribution Width CV 16.5 % (11.6-14.6); Red Blood Count 5.04 M/mm3 (4.2-5.4); White Blood Count 13.1 K/mm3 (4.4-11.0)
[2023-07-30] MEDS: 0.9% Saline Lock 10 ML Syringe IV ×2 (05:24→16:29)
[2023-07-30 05:27] LABS: Anion Gap 7 (5-15); BUN 20 mg/dL (7-18); BUN/Creat Ratio 14.3 RATIO (10-20); Calcium,Total 9.3 mg/dL (8.5-10.1); Chloride 101 mmol/L (98-107); EST Glomerular Filtration Rate 42 mL/min (>60); Est Glom Filt Rate - Afr Amer 51 mL/min (>60); Estimated Creatinine Clearance 58.79 ml/min; Glucose 338 mg/dL (74-106); Sodium Level 133 mmol/L (136-145)
[2023-07-30] MEDS: Ipratropium/Albuterol Sulfate 3 ML AMPUL.NEB INHALATION ×4 (07:18→19:45)
--- NOTE | 2023-07-30 07:28 | PCM.PN.HOSP ---
Reason for Visit Reason for Visit: Syncope/shortness of breath Subjective Subjective Patient is a 52-year-old white female who presented to emergency department [facility] on 07/29/2023 with a syncopal episode as well as some shortness of breath and dysuria. Patient reported that she had been feeling feverish and chilled for the last 2 days. She does have a history of COPD with chronic hypoxia and history of pulmonary embolus and is on oxygen 2 L at baseline. She reported that she was sitting on the toilet going to the bathroom and then awoke still on the toilet but her head was resting on the vanity. She denied any injuries and this seems very consistent with a vasovagal event or micturition syncope. Vital signs on presentation showed a temperature of 99.5, respiratory was 33, blood pressure was 185/115 with a repeat of 164/115, heart rate was 94 and oxygen saturations were 98% on her baseline 2 L. CBC showed a leukocytosis with a white count of 12.7 and a left shift with a 78.9% neutrophilia. Chemistry panel showed mild hyponatremia with a sodium of 132 but other electrolytes were normal. Creatinine was slightly elevated however seems to be fairly consistent with her baseline at 1.11. Her initial lactic acid was 2.1 with repeat at 1.1. BNP was elevated at 266.8 and troponin was normal at 31. Her UA was suggestive of infection and was positive for nitrites, occult blood, leuk esterase, white cells, and was 4+ bacteria. Toxicology screen was unremarkable. Chest x-ray showed heterogeneous opacities involving lung bases that was suggestive of atelectasis versus infiltrate. She was started on Rocephin and azithromycin for possible pneumonia and cultures were ordered and pending. Ceftriaxone should also cover her urine. Patient states she feels about the same as she did previously. She is frustrated because she has not been feeling well for some time. She still smoking but cutting back. Waiting for cultures to come back. She is on no baseline for therapy for her lung disease and I do suspect she has COPD. I do not see that she is ever had any PFTs done. Objective Data Objective Data Vital Signs: Vital Signs Temp Pulse Resp BP Pulse Ox O2 Del Method O2 Flow Rate 96.7 F L 72 18 135/90 H 95 Nasal Cannula 2 07/30/23 01:40 07/30/23 01:40 07/30/23 01:40 07/30/23 01:40 07/30/23 01:40 07/30/23 07:25 07/30/23 07:25 Oxygen Flow Rate (L/min) 2 Oxygen Delivery Method Nasal Cannula Weight: 122.9 kg Body Mass Index (BMI) 49.5 Intake & Output: Intake and Output for Last 24 Hours 07/28/23 07/29/23 07/30/23 23:59 23:59 23:59 Intake Total 670 / 670 Balance 670 / 670 Lab / Micro Data 07/30/23 04:45 07/30/23 04:45 Labs: Laboratory Results - last 24 hr 07/29/23 16:30: WBC 12.7 H, RBC 5.04, Hgb 14.2, Hct 44.8, MCV 88.9, MCH 28.2, MCHC 31.7 L, RDW Std Deviation 53.5 H, RDW Coeff of Serafin 16.5 H, Plt Count 348, MPV 9.8, Immature Gran % (Auto) 4.400 H, Neut % (Auto) 78.9 H, Lymph % (Auto) 9.0 L, [place] % (Auto) 6.8, Eos % (Auto) 0.3, Baso % (Auto) 0.6, Absolute Neuts (auto) 10.0 H, Absolute Lymphs (auto) 1.14, Nucleated RBC % 0, Sodium 132 L, Potassium 4.8, Chloride 99, Carbon Dioxide 29.0, Anion Gap 4 L, BUN 17, Creatinine 1.11 H, Estim Creat Clear Calc 75.12, Est GFR (MDRD) Af Amer 66, Est GFR (MDRD) Non-Af 55 L, BUN/Creatinine Ratio 15.3, Glucose 215 H, Lactic Acid 2.1 H*, Calcium 9.1, Troponin I High Sens 31, B-Natriuretic Peptide 266.8 H 07/29/23 17:51: Urine Color Yellow, Urine Clarity Sl. Cloudy, Urine pH 6.0, Ur Specific Malcolm 1.010, Urine Protein 100 H, Urine Glucose (UA) Normal, Urine Ketones Negative, Urine Occult Blood 25 H, Urine Nitrite Positive H, Urine Bilirubin 1 H, Urine Urobilinogen 1 H, Ur Leukocyte Esterase 500 H, Urine RBC 0-5 SEEN, Urine WBC 10-25 SEEN, Ur Squamous Epith Cells 5-10 SEEN, Urine Bacteria 4+, Urine Mucus 0 SEEN, Urine Opiates Screen NEGATIVE, Urine Methadone Screen NEGATIVE, Ur Barbiturates Screen NEGATIVE, Ur Phencyclidine Scrn NEGATIVE, Ur Amphetamines Screen NEGATIVE, MDMA (Ecstasy) Screen NEGATIVE, U Benzodiazepines Scrn NEGATIVE, Urine Cocaine Screen NEGATIVE, U Cannabinoids Screen NEGATIVE, Ur Drug Screen Comment 07/29/23 21:05: Lactic Acid 1.1 07/30/23 04:45: WBC 13.1 H, RBC 5.04, Hgb 14.1, Hct 44.6, MCV 88.5, MCH 28.0, MCHC 31.6 L, RDW Std Deviation 53.0 H, RDW Coeff of Serafin 16.5 H, Plt Count 316, MPV 9.8, Immature Gran % (Auto) 2.700 H, Neut % (Auto) 88.9 H, Lymph % (Auto) 6.0 L, [place] % (Auto) 2.0, Eos % (Auto) 0.1, Baso % (Auto) 0.3, Absolute Neuts (auto) 11.7 H, Absolute Lymphs (auto) 0.79 L, Nucleated RBC % 0, Sodium 133 L, Potassium 5.0, Chloride 101, Carbon Dioxide 25.0, Anion Gap 7, BUN 20 H, Creatinine 1.40 H, Estim Creat Clear Calc 58.79, Est GFR (MDRD) Af Amer 51 L, Est GFR (MDRD) Non-Af 42 L, BUN/Creatinine Ratio 14.3, Glucose 338 H, Calcium 9.3 Micro: Microbiology 07/29/23 16:30 Mucosa - Nose SARS-CoV-2, Influenza & RSV (PCR) - Final Radiography Diagnostic Testing: Radiology Impression Chest X-Ray 07/29/23 16:37 IMPRESSION: 1. Heterogeneous opacities involving the lung bases may represent atelectasis versus infiltrate. 2. Bronchitis or asthma. Electronically Signed: Marcel Gunderson MD at 17:09 EDT , Physical Exam Const alert, oriented x3, no apparent distress and well nourished; Negative for average body habitus or healthy appearing Constitutional Narrative: Morbidly obese white female, middle-aged, sitting up on the edge of the bed without her oxygen in place, does not appear uncomfortable or toxic but affect is extremely flat HEENT head/scalp atraumatic and moist oral mucous membranes HEENT Narrative: Mallampati is 3-4, no thrush Head and Scalp: normocephalic Resp normal respiratory effort, no retractions, no use of accessory muscles and No clear to auscultation bilaterally Resp Narrative: Few scattered end expiratory wheezes but appears to be clinically improved from admission Auscultation: wheezes; Negative for crackles or rhonchi Cardio regular rate, regular rhythm, S1 normal heart sound, S2 normal heart sound, no murmurs, no rub and no gallops GI normal to inspection, nondistended, normoactive bowel sounds, soft to palpation and non-tender Extremity no clubbing, cyanosis or edema Extremity Narrative: Pedal pulses are 2+ Neuro oriented x3, moves all extremities and no focal motor deficits Speech: speech normal Psych Psych Narrative: Affect is flat, eye contact is fair, mood seems depressed Assessment & Plan Assessment/Plan (1) Acidosis, lactic: (2) Abnormal chest x-ray: (3) Abnormal finding on urinalysis: (4) Leukocytosis: (5) Dyspnea: (6) Leukocytosis: (7) Elevated serum creatinine: PLAN: Plan Abnormal urinalysis -Suggestive of infection -Cultures are pending -Continue ceftriaxone -Await identification of organism and sensitivity to rule in UTI Abnormal chest x-ray/shortness of breath/acute exacerbation of COPD -Patient remains on her baseline oxygen at 2 L -Continue to monitor and titrate up if need be -Chest x-ray reports infiltrates versus atelectasis -Continue Solu-Medrol for now with history of COPD--> patient has prednisone allergy so will not be able to do taper at discharge -Continue antibiotics with azithromycin and ceftriaxone -Strep pneumo and Legionella antigens are pending -Sputum cultures pending if patient able to produce -Add Mucinex 1200 twice daily -Add incentive spirometry -Add Acapella -Continue aggressive pulmonary toilet with scheduled and as needed nebulizers -COVID/flu/RSV negative -Check respiratory viral panel Leukocytosis -Mild initially however now on Solu-Medrol so will be elevated due to demargination of neutrophils -Will need to monitor clinically for improvement as white count will likely be elevated to the above Lactic acidosis -Resolved Elevated serum creatinine -Baseline appears to run between 1 and 1.25 -Current is 1.4 -Start IV fluids with LR at 100 cc/h -Repeat lab in a.m. Elevated blood pressure -Much better today with most recent was being 135/90 -Goal would be 130/80 with her history of diabetes -Will start low-dose losartan while hospitalized as this would be a nice conjunct give medication for her diabetes as well and provide renal protection Chronic hypoxic respiratory failure secondary to COPD/history of multiple PE -At baseline wears 2 L -Been currently on baseline oxygen -Encouraged outpatient pulmonary medicine with follow-up it appears the patient missed her last 3-month follow-up with Dr. Shea History of recurrent pulmonary emboli -Continue home Eliquis Diabetes -Patient is on Mounjaro as an outpatient -Will utilize SSI while hospitalized -Accu-Cheks as ordered GERD -Continue home omeprazole Diabetic neuropathy -Continue home gabapentin Schizophrenia/depression -Patient gets monthly injectable aripiprazole with last dose being 07/28/2023 -Continue home Wellbutrin Morbid obesity -BMI is 49.6 -Recommend weight loss -Complicates treatment, prognosis, outcomes History of tobacco abuse -Still smoking -Will offer nicotine patch if needed DVT prophylaxis -Continue home Eliquis CODE STATUS -DNR CCA with no intubation as verified on admission Charges/Coding Visit Charges Inpatient E&M: 44259 Subs Hosp L2
[2023-07-30] MEDS: Cholecalciferol (Vit D3) 125 MCG CAPSULE (5,000 UNITS) PO (08:20)
[2023-07-30] MEDS: Acyclovir 200 MG Capsule 400 MG PO ×2 (08:20→21:45)
[2023-07-30] MEDS: buPROPion (XL) 300 MG TABLET.XL PO (08:20)
[2023-07-30] MEDS: APIXABAN 5 MG TABLET PO ×2 (08:21→21:45)
[2023-07-30] MEDS: Pantoprazole Sodium 20 MG Tablet PO (08:21)
[2023-07-30] MEDS: Gabapentin 300 MG Capsule PO ×3 (08:26→16:32)
[2023-07-30] MEDS: Losartan Potassium 25 MG Tablet PO (08:26)
[2023-07-30] MEDS: Ceftriaxone 1 GM/50 ML BAG IV (08:36)
[2023-07-30] MEDS: guaiFENesin 1,200 MG Tablet 1200 MG PO ×2 (08:41→21:45)
[2023-07-30] MEDS: Azithromycin 500 MG in Dextrose 5%-Water (250mL Bag) 250 ML 250 MG IV (10:03)
[2023-07-30] MEDS: Lactated Ringers 1,000 ML 100 ML IV (10:04)
--- NOTE | 2023-07-30 10:21 | CASEMGMT ---
Addendum entered by Calista Mack 07/30/23 10:35: No history of HHC/SNF Calista Mack MSN, RN, CCM Original Note: RN CHANTELLE Assessment: Face to Face with pt for initial transition planning/care coordination assessment. RN CM introduced self and role at [facility], pt voices understanding and consents to assessment. Pt is A&O x4 and answers all questions appropriately at this time. Care providers, pharmacy, and demographics verified/updated. Pt not wearing oxygen at time of assessment. Admitting Dx: Pneumonia and UTI PCP: Afia Machado Specialists: Shabbir, pt reports she is going to get a new outpatient physical therapist assistant as she has not seen hers since August of last yr Preferred Pharmacy: [facility] Insurance: [employer] [facility] Prescription Benefit: yes LNOK: Mother Hodan and Sister Gi Living Arrangements: Pt lives at home alone in a 3rd floor apartment. Pt has 2 flights of stairs to her apartment but also has elevator access. Pt reports she is independent with her ADLs. Pt reports that she has been struggling with IADLs due to her SOB. 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 Transportation: Pt does not drive. Pt uses her insurance benefit for transportation and has a neighbor who assists at times. DME: shower chair with grab bars, oxygen through [employer] at 2L [place]. Inquired if pt wore her oxygen continuously, pt reports as much as possible HHC/SNF: Pt reports her main concern with going home is her activity tolerance/SOB. Pt reports that she is greatly limited due to this. CM to follow. Advised pt to ask CM if any further question/concerns/needs arise, voices understanding. Pt Goal: Home Plan: Home with no needs. Noted that clicks is 24. Calista Mack MSN, RN, CCM
[2023-07-30] MEDS: Furosemide 40 MG/4 ML Vial IV (16:29)
[2023-07-30] MEDS: Oxymetazoline 0.05% 1 SPRAY SPRAY.BTL 2 SPRAY NASAL (21:45)
[2023-07-31] VITALS (9 sets, daily range): BP systolic 115–149; BP diastolic 72–103; PULSE 71–87; RESP 16–18; TEMP 36.3–36.6; O2SAT 94–100
[2023-07-31] MEDS: 0.9% Saline Lock 10 ML Syringe IV (05:42)
[2023-07-31 06:47] LABS: Absolute Lymphocyte Count 0.83 X10^3/uL (0.83-4.51); Absolute Neutrophil Count 14.1 X10^3/uL (2.0-7.7); Basophil# 0.02 X10^3/uL; Basophil% 0.1 % (0-1); Hematocrit 40.5 % (37-47); Hemoglobin 12.9 g/dL (12.0-15.0); Lymphocyte # 0.83 X10^3/ul (0.83-4.51); Lymphocyte % 5.3 % (19-41); Mean Corp Hgb Conc 31.9 g/dL (32-36); Mean Corpuscular Hgb 27.7 pg (27.0-32.0); Mean Corpuscular Volume 86.9 fL (81-99); Mean Platelet Vol. 9.8 fl (6.2-12.0); Monocyte# 0.63 X10^3/uL; NRBC Flagged by Analyzer 0 % (0-5); Neutrophil # 14.06 X10^3/uL (2.7-7.7); Neutrophil % 89.2 % (47-70); Platelet Count 345 K/mm3 (150-450); RBC Distribution Width CV 16.6 % (11.6-14.6); RBC Distribution Width SD 52.2 fl (35.1-43.9); Red Blood Count 4.66 M/mm3 (4.2-5.4); White Blood Count 15.8 K/mm3 (4.4-11.0)
[2023-07-31] MEDS: Ipratropium/Albuterol Sulfate 3 ML AMPUL.NEB INHALATION ×4 (07:19→19:35)
[2023-07-31 07:26] LABS: ALB/GLOB Ratio 0.5 RATIO (0.9-2.4); AST(SGOT) 21 U/L (15-37); Alanine Aminotransfer ALT/SGPT 70 U/L (13-56); Albumin, Serum 2.2 g/dL (3.2-5.0); Alkaline Phosphatase 272 U/L (45-117); Anion Gap 6 (5-15); BUN 30 mg/dL (7-18); BUN/Creat Ratio 26.8 RATIO (10-20); Calcium,Total 9.2 mg/dL (8.5-10.1); Chloride 100 mmol/L (98-107); Creatinine, Serum 1.12 mg/dL (0.55-1.02); EST Glomerular Filtration Rate 54 mL/min (>60); Est Glom Filt Rate - Afr Amer 66 mL/min (>60); Estimated Creatinine Clearance 73.48 ml/min; Globulin 4.5 g/dL (2.2-4.2); Glucose 420 mg/dL (74-106); Magnesium 1.8 mg/dL (1.6-2.6); Potassium 5.2 mmol/L (3.5-5.1); Protein, Total 6.7 g/dL (6.4-8.2); Sodium Level 131 mmol/L (136-145)
--- NOTE | 2023-07-31 08:06 | ECHOCS_ITS ---
Reason For Study: CHF Procedure This was a 2D Doppler, Color Flow transthoracic echocardiogram. The study was technically difficult. Exam performed portable in patient room. Left Ventricle Normal LV size. The estimated ejection fraction is 65 %. Stage 1 diastolic dysfunction. No regional wall motion abnormalities noted. Right Ventricle Normal RV size. Mild to moderate global right ventricular systolic dysfunction. Atria Normal left atrium. Normal right atrium. Mobile mass of the right atrium. Mass in right atrium measuring 2.8 x 1.9 cm most consistent with a right atrial thrombus. Mitral Valve Normal mitral valve. Mild (1+) eccentric mitral valve insufficiency. Tricuspid Valve Normal tricuspid valve. Moderate (2+) tricuspid valve insufficiency. Pulmonary artery systolic pressure is 60 mmHg. Moderate pulmonary hypertension. Aortic Valve Trisinus/trileaflet aortic valve. Pulmonic Valve The pulmonic valve is not well visualized. Great Vessels Normal aortic root. The pulmonary artery is normal size. No collapse of the inferior vena cava. IVC thrombus. Pericardium/Pleural No pericardial effusion. Medication Diluted definity 2.0ml given slow IV push to enhance endocardial definition. MMode/2D Measurements & Calculations LVIDd: 4.2 cm IVSd: 1.1 cm LVOT diam: 1.9 cm LVIDs: 3.2 cm LVPWd: 1.3 cm RVDd: 4.0 cm FS: 22.9 % LVOT area: 2.9 cm2 Ao root diam: 3.2 cm LAV(MOD-sp2): 32.4 ml LVAd ap4: 29.7 cm2 LVLd ap4: 7.3 cm EDV(MOD-sp4): 97.4 ml EDV(sp4-el): 103.0 ml LVAs ap4: 16.2 cm2 LVLs ap4: 6.1 cm ESV(MOD-sp4): 35.6 ml ESV(sp4-el): 36.3 ml EF(MOD-sp4): 63.5 % EF(sp4-el): 64.7 % LVAd ap2: 34.3 cm2 SV(MOD-sp4): 61.9 ml SV(MOD-sp2): 80.5 ml LVLd ap2: 7.9 cm EDV(MOD-sp2): 123.5 ml EDV(sp2-el): 126.2 ml LVAs ap2: 18.3 cm2 LVLs ap2: 6.6 cm ESV(MOD-sp2): 43.0 ml ESV(sp2-el): 43.0 ml EF(MOD-sp2): 65.2 % SV(sp4-el): 66.7 ml LA dimension(2D): 3.6 cm LA A4 area: 13.8 cm2 RA A4 area: 14.6 cm2 Time Measurements MV dec time: 0.26 sec Doppler Measurements & Calculations MV E max lukas: 61.3 cm/sec Lat Peak E' Lukas: 7.6 cm/sec Med Peak E' Lukas: 4.8 cm/sec MV A max lukas: 104.5 cm/sec E/E' lat: 8.0 E/E' med: 12.8 MV E/A: 0.59 Ao V2 max: 156.7 cm/sec LV V1 max: 120.5 cm/sec MV dec slope: 236.0 cm/sec2 Ao max P.8 mmHg LV V1 max P.8 mmHg Ao V2 mean: 105.0 cm/sec LV V1 mean P.2 mmHg Ao mean P.1 mmHg LV V1 mean: 82.8 cm/sec Ao V2 VTI: 24.6 cm LV V1 VTI: 19.6 cm AV (velocity ratio): 0.80 JAVIER(I,D): 2.3 cm2 JAVIER(V,D): 2.2 cm2 SV(LVOT): 56.0 ml PA V2 max: 68.0 cm/sec TR max lukas: 359.9 cm/sec PA max PG (full): 0.72 mmHg TR max P.8 mmHg ECHO/Echo Complete W/ Contrast Interpretation Summary Normal LV size. The estimated ejection fraction is 65 %. No regional wall motion abnormalities noted. Mild to moderate global right ventricular systolic dysfunction. Mobile mass of the right atrium. Pulmonary artery systolic pressure is 60 mmHg. Moderate pulmonary hypertension. Mass in right atrium measuring 2.8 x 1.9 cm most consistent with a right atrial thrombus Stage 1 diastolic dysfunction. Contrast injection was performed. Ordering Physician: Annabelle Ayoub Referring Physician: Afia Machado Performed By: Grace Martinez RDCS
[2023-07-31] MEDS: Gabapentin 300 MG Capsule PO ×3 (09:00→16:07)
[2023-07-31] MEDS: Losartan Potassium 25 MG Tablet PO (09:04)
[2023-07-31] MEDS: guaiFENesin 1,200 MG Tablet 1200 MG PO ×2 (09:05→21:21)
[2023-07-31] MEDS: APIXABAN 5 MG TABLET PO ×2 (09:05→21:21)
[2023-07-31] MEDS: Pantoprazole Sodium 20 MG Tablet PO (09:05)
[2023-07-31] MEDS: Furosemide 40 MG/4 ML Vial IV ×2 (09:05→17:12)
[2023-07-31] MEDS: buPROPion (XL) 300 MG TABLET.XL PO (09:06)
[2023-07-31] MEDS: Acyclovir 200 MG Capsule 400 MG PO ×2 (09:06→21:21)
[2023-07-31] MEDS: Cholecalciferol (Vit D3) 125 MCG CAPSULE (5,000 UNITS) PO (09:06)
[2023-07-31] MEDS: Ceftriaxone 1 GM/50 ML BAG IV (09:07)
[2023-07-31 09:41] LABS: Bedside Glucose 435 mg/dL (74-106)
[2023-07-31] MEDS: Azithromycin 500 MG in Dextrose 5%-Water (250mL Bag) 250 ML 250 MG IV (10:13)
[2023-07-31 10:57] LABS: Anion Gap 13 (5-15); BUN 30 mg/dL (7-18); BUN/Creat Ratio 20.7 RATIO (10-20); Chloride 94 mmol/L (98-107); Creatinine, Serum 1.45 mg/dL (0.55-1.02); EST Glomerular Filtration Rate 40 mL/min (>60); Est Glom Filt Rate - Afr Amer 49 mL/min (>60); Estimated Creatinine Clearance 56.76 ml/min; Glucose 588 mg/dL (74-106); Potassium 4.9 mmol/L (3.5-5.1); Sodium Level 130 mmol/L (136-145)
--- NOTE | 2023-07-31 11:35 | PN.HOSP_ITS ---
Reason for Visit Reason for Visit: Syncope/shortness of breath Subjective Subjective Patient states he is feeling a little bit better. Breathing is about the same. She did state it that she peed quite a bit with the diuretic. We did discuss that she could potentially have what I suspect to be right-sided heart failure from untreated sleep apnea as well as COPD and possibly thromboembolic disease however echocardiogram will be done tomorrow and will give us more information. She voiced understanding. I did tell her she has what appears to be urinary t ract infection is maintained on antibiotics. It is unclear at this time whether or not she actually has a pneumonia or not however she will remain on current antibiotics. Objective Data Objective Data Vital Signs: Vital Signs Temp Pulse Resp BP Pulse Ox O2 Del Method O2 Flow Rate 97.4 F L 82 16 149/103 H 94 Room Air 2 07/31/23 09:00 07/31/23 10:46 07/31/23 10:46 07/31/23 09:00 07/31/23 09:00 07/31/23 09:00 07/31/23 03:00 Oxygen Flow Rate (L/min) 2 Oxygen Delivery Method Room Air Weight: 122.9 kg Body Mass Index (BMI) 49.5 Intake & Output: Intake and Output for Last 24 Hours 07/29/23 07/30/23 07/31/23 23:59 23:59 23:59 Intake Total 670 / 670 2228.33 / 2708.33 1025 / 1025 Balance 670 / 670 2228.33 / 2708.33 1025 / 1025 Lab / Micro Data 07/31/23 06:16 07/31/23 10:15 Labs: Laboratory Results - last 24 hr 07/31/23 06:16: WBC 15.8 H, RBC 4.66, Hgb 12.9, Hct 40.5, MCV 86.9, MCH 27.7, MCHC 31.9 L, RDW Std Deviation 52.2 H, RDW Coeff of Serafin 16.6 H, Plt Count 345, MPV 9.8, Immature Gran % (Auto) 1.400 H, Neut % (Auto) 89.2 H, Lymph % (Auto) 5.3 L, [place] % (Auto) 4.0, Eos % (Auto) 0.0, Baso % (Auto) 0.1, Absolute Neuts (auto) 14.1 H, Absolute Lymphs (auto) 0.83, Nucleated RBC % 0, Sodium 131 L, Potassium 5.2 H, Chloride 100, Carbon Dioxide 25.0, Anion Gap 6, BUN 30 H, Creatinine 1.12 H, Estim Creat Clear Calc 73.48, Est GFR (MDRD) Af Amer 66, Est GFR (MDRD) Non-Af 54 L, BUN/Creatinine Ratio 26.8 H, Glucose 420 H, Calcium 9.2, Phosphorus 4.0, Magnesium 1.8, Total Bilirubin 0.60, AST 21, ALT 70 H, Alkaline Phosphatase 272 H, Total Protein 6.7, Albumin 2.2 L, Globulin 4.5 H, Albumin/Globulin Ratio 0.5 L, TSH 1.20 07/31/23 08:53: POC Glucose 435 H 07/31/23 10:15: Sodium 130 L, Potassium 4.9, Chloride 94 L, Carbon Dioxide 23.0, Anion Gap 13, BUN 30 H, Creatinine 1.45 H, Estim Creat Clear Calc 56.76, Est GFR (MDRD) Af Amer 49 L, Est GFR (MDRD) Non-Af 40 L, BUN/Creatinine Ratio 20.7 H, Glucose 588 H*, Calcium 9.0 Micro: Microbiology 07/29/23 17:51 Urine, Clean Catch Urine Culture - Final Presumptive E. coli 07/30/23 19:50 Mucosa - Nasopharyngeal Respiratory Panel (PCR) - Final 07/30/23 14:58 Urine, Clean Catch Legionella Antigen - Final 07/30/23 14:58 Urine, Clean Catch Streptococcus pneumoniae Antigen (M - Final 07/29/23 16:30 Mucosa - Nose SARS-CoV-2, Influenza & RSV (PCR) - Final Physical Exam Const alert, oriented x3, no apparent distress and well nourished; Negative for average body habitus or healthy appearing Constitutional Narrative: Morbidly obese white female, middle-aged, lying in bed with headphones on listening to something, sits up on the edge of the bed easily when I walk in the room for me to perform an exam,, does not appear uncomfortable or toxic, affect is less flat than yesterday HEENT head/scalp atraumatic and moist oral mucous membranes HEENT Narrative: Mallampati is 3, no thrush Head and Scalp: normocephalic Resp normal respiratory effort, no retractions, no use of accessory muscles and clear to auscultation bilaterally Resp Narrative: Diminished diffusely-mild Auscultation: Negative for crackles, rhonchi or wheezes Cardio regular rate, regular rhythm, S1 normal heart sound, S2 normal heart sound, no murmurs, no rub and no gallops GI normal to inspection, nondistended, normoactive bowel sounds, soft to palpation and non-tender GI Narrative: Large protuberant abdomen Extremity Extremity Narrative: Pedal pulses are 2+, trace to 1+ bilateral lower extremity edema Neuro oriented x3, moves all extremities and no focal motor deficits Speech: speech normal Psych Psych Narrative: Affect is flat, eye contact is fair, mood seems depressed Assessment & Plan Assessment/Plan (1) Acidosis, lactic: (2) Abnormal chest x-ray: (3) Abnormal finding on urinalysis: (4) Leukocytosis: (5) Dyspnea: (6) Elevated serum creatinine: (7) E. coli urinary tract infection: PLAN: Plan E. coli UTI -Culture positive for E. coli with pansensitive organism -Continue ceftriaxone day 2 of 7 for antibiotics Abnormal chest x-ray/shortness of breath/acute exacerbation of COPD -Patient remains on her baseline oxygen at 2 L -Continue to monitor and titrate up if need be -Chest x-ray reports infiltrates versus atelectasis -Continue Solu-Medrol for now with history of COPD--> decreased to daily Solu- Medrol -Strep pneumo and Legionella are negative -Patient not able to produce a sputum for culture -Discontinue azithromycin and continue ceftriaxone -Continue Mucinex 1200 twice daily -Continue incentive spirometry -Continue Acapella -Continue aggressive pulmonary toilet with scheduled and as needed nebulizers -COVID/flu/RSV negative -Respiratory viral panel was unremarkable -Needs follow-up with pulmonary medicine as an outpatient for PFTs and a 6- minute walk test -Highly recommend tobacco cessation Lower extremity edema/elevated BNP -Check echocardiogram--> pending for tomorrow -Continue Lasix 40 mg IV twice daily -Fluid and sodium restrict diet -Check daily weights Leukocytosis -Mild initially however now on Solu-Medrol so will be elevated due to demargination of neutrophils -Will need to monitor clinically for improvement as white count will likely be elevated to the above Elevated serum creatinine -Baseline appears to run between 1 and 1.25 -Was 1.4 yesterday and down to 1.2 this morning -Avoid nephrotoxins and continue to monitor -Repeat lab in a.m. Hyperkalemia -Etiology is unclear -Patient is on no potassium supplementation -Does not appear to be acidotic -Repeat lab shows normalized potassium at 4.9 -Repeat lab in a.m. Elevated blood pressure -Blood pressures for the most part have been in goal range -Goal would be 130/80 with her history of diabetes -Will start low-dose losartan while hospitalized as this would be a nice conjunct give medication for her diabetes as well and provide renal protection Chronic hypoxic respiratory failure secondary to COPD/history of multiple PE -At baseline wears 2 L -Been currently on baseline oxygen -Encouraged outpatient pulmonary medicine with follow-up it appears the patient missed her last 3-month follow-up with Dr. Shea History of recurrent pulmonary emboli -Continue home Eliquis Diabetes -Patient is on Mounjaro as an outpatient -Blood sugars are markedly elevated likely related to steroid use -Add Lantus 15 units daily -Add SSI high-dose -Will wean steroids some and this should help control her sugars -Accu-Cheks as ordered -Had recent hemoglobin A1c on 05/28/2023 at which time it was 7.0 GERD -Continue home omeprazole Diabetic neuropathy -Continue home gabapentin Schizophrenia/depression -Patient gets monthly injectable aripiprazole with last dose being 07/28/2023 -Continue home Wellbutrin Morbid obesity -BMI is 49.6 -Recommend weight loss -Complicates treatment, prognosis, outcomes History of tobacco abuse -Still smoking -Patient denies need of nicotine patch DVT prophylaxis -Continue home Eliquis CODE STATUS -DNR CCA with no intubation Charges/Coding Visit Charges Inpatient E&M: 10531 Subs Hosp L2
[2023-07-31] MEDS: Insulin Glargine-YFGN 100 UNIT/ML Pen 15 UNIT SC (11:59)
[2023-07-31] MEDS: Insulin Lispro 100 UNIT/ML INSULN.PEN SC ×2 (12:05→16:09)
[2023-07-31] MEDS: Oxymetazoline 0.05% 1 SPRAY SPRAY.BTL 2 SPRAY NASAL ×2 (12:08→19:53)
[2023-07-31] MEDS: Insulin Lispro 100 UNIT/ML INSULN.PEN 20 UNIT SC (14:57)
[2023-07-31 16:32] LABS: Bedside Glucose 442 mg/dL (74-106)
[2023-07-31 16:32] LABS: Bedside Glucose 495 mg/dL (74-106)
[2023-07-31 16:32] LABS: Bedside Glucose 475 mg/dL (74-106)
[2023-07-31 16:32] LABS: Bedside Glucose > 500 mg/dL (74-106)
[2023-07-31 22:44] LABS: Bedside Glucose 255 mg/dL (74-106)
[2023-08-01] VITALS (10 sets, daily range): BP systolic 98–155; BP diastolic 62–94; PULSE 74–95; RESP 16–20; TEMP 36.2–36.4; O2SAT 92–96; BMI 49.4; BMI 62.9
[2023-08-01 05:54] LABS: Absolute Lymphocyte Count 1.92 X10^3/uL (0.83-4.51); Absolute Neutrophil Count 13.3 X10^3/uL (2.0-7.7); Basophil# 0.03 X10^3/uL; Basophil% 0.2 % (0-1); Eosinophil# 0.02 X10^3/uL; Eosinophils% 0.1 % (0-5); Hematocrit 42.8 % (37-47); Hemoglobin 13.6 g/dL (12.0-15.0); Lymphocyte # 1.92 X10^3/ul (0.83-4.51); Lymphocyte % 11.6 % (19-41); Mean Corp Hgb Conc 31.8 g/dL (32-36); Mean Corpuscular Hgb 27.8 pg (27.0-32.0); Mean Corpuscular Volume 87.3 fL (81-99); Mean Platelet Vol. 9.7 fl (6.2-12.0); Monocyte# 1.16 X10^3/uL; NRBC Flagged by Analyzer 0 % (0-5); Neutrophil # 13.26 X10^3/uL (2.7-7.7); Neutrophil % 79.8 % (47-70); Platelet Count 393 K/mm3 (150-450); RBC Distribution Width CV 16.6 % (11.6-14.6); RBC Distribution Width SD 51.9 fl (35.1-43.9); White Blood Count 16.6 K/mm3 (4.4-11.0)
[2023-08-01 06:24] LABS: Anion Gap 6 (5-15); BUN 32 mg/dL (7-18); BUN/Creat Ratio 25.6 RATIO (10-20); Calcium,Total 9.3 mg/dL (8.5-10.1); Chloride 99 mmol/L (98-107); Creatinine, Serum 1.25 mg/dL (0.55-1.02); EST Glomerular Filtration Rate 48 mL/min (>60); Est Glom Filt Rate - Afr Amer 58 mL/min (>60); Estimated Creatinine Clearance 76.91 ml/min; Glucose 329 mg/dL (74-106); Magnesium 1.8 mg/dL (1.6-2.6); Potassium 4.8 mmol/L (3.5-5.1); Sodium Level 132 mmol/L (136-145)
[2023-08-01] MEDS: Insulin Lispro 100 UNIT/ML INSULN.PEN SC ×3 (06:46→16:22)
[2023-08-01] MEDS: 0.9% Saline Lock 10 ML Syringe IV ×3 (06:47→18:01)
[2023-08-01 07:02] LABS: Bedside Glucose 281 mg/dL (74-106)
[2023-08-01] MEDS: Ipratropium/Albuterol Sulfate 3 ML AMPUL.NEB INHALATION ×4 (07:15→20:48)
[2023-08-01] MEDS: Oxymetazoline 0.05% 1 SPRAY SPRAY.BTL 2 SPRAY NASAL ×2 (09:41→20:00)
[2023-08-01] MEDS: Gabapentin 300 MG Capsule PO ×3 (09:41→16:22)
[2023-08-01] MEDS: Acyclovir 200 MG Capsule 400 MG PO ×2 (09:41→22:06)
[2023-08-01] MEDS: Pantoprazole Sodium 20 MG Tablet PO (09:41)
[2023-08-01] MEDS: Losartan Potassium 25 MG Tablet PO (09:42)
[2023-08-01] MEDS: buPROPion (XL) 300 MG TABLET.XL PO (09:42)
[2023-08-01] MEDS: APIXABAN 5 MG TABLET PO ×2 (09:42→22:05)
[2023-08-01] MEDS: Cholecalciferol (Vit D3) 125 MCG CAPSULE (5,000 UNITS) PO (09:42)
[2023-08-01] MEDS: guaiFENesin 1,200 MG Tablet 1200 MG PO ×2 (09:42→22:05)
[2023-08-01] MEDS: Furosemide 40 MG/4 ML Vial IV ×2 (09:43→18:01)
[2023-08-01] MEDS: Insulin Glargine-YFGN 100 UNIT/ML Pen 15 UNIT SC (09:45)
--- NOTE | 2023-08-01 09:49 | PN.HOSP_ITS ---
Reason for Visit Reason for Visit: Diagnoses Unspecified Escherichia coli [E. coli] as the cause of diseases classified else where (07/29/23) Elevated white blood cell count, unspecified (07/29/23) Acidosis, unspecified (07/29/23) Pneumonia, unspecified organism (07/29/23) Urinary tract infection, site not specified (07/29/23) Dyspnea, unspecified (07/29/23) Other specified abnormal findings of blood chemistry (07/29/23) Unspecified abnormal findings in urine (07/29/23) Abnormal findings on diagnostic imaging of other specified body structures (07/29/23) Subjective Subjective Anxious about the BHARGAV. Breathing well at rest, short of breath with activity. Objective Data Objective Data Vital Signs: Vital Signs Temp Pulse Resp BP Pulse Ox O2 Del Method O2 Flow Rate 36.4 C L 80 18 124/78 H 96 Room Air 2 08/01/23 09:35 08/01/23 09:35 08/01/23 09:35 08/01/23 09:35 08/01/23 09:35 08/01/23 09:35 07/31/23 03:00 Oxygen Flow Rate (L/min) 2 Oxygen Delivery Method Room Air Weight: 156.2 kg Body Mass Index (BMI) 62.9 Intake & Output: Intake and Output for Last 24 Hours 07/30/23 07/31/23 08/01/23 23:59 23:59 23:59 Intake Total 2228.33 / 2708.33 2245 / 2245 240 / 240 Balance 2228.33 / 2708.33 2245 / 2245 240 / 240 Lab / Micro Data 08/01/23 05:11 08/01/23 05:11 Labs: Laboratory Results - last 24 hr 07/31/23 10:15: Sodium 130 L, Potassium 4.9, Chloride 94 L, Carbon Dioxide 23.0, Anion Gap 13, BUN 30 H, Creatinine 1.45 H, Estim Creat Clear Calc 56.76, Est GFR (MDRD) Af Amer 49 L, Est GFR (MDRD) Non-Af 40 L, BUN/Creatinine Ratio 20.7 H, Glucose 588 H*, Calcium 9.0 07/31/23 11:58: POC Glucose > 500 H* 07/31/23 13:05: POC Glucose 495 H* 07/31/23 14:45: POC Glucose 475 H* 07/31/23 16:07: POC Glucose 442 H 07/31/23 21:19: POC Glucose 255 H 08/01/23 05:11: WBC 16.6 H, RBC 4.90, Hgb 13.6, Hct 42.8, MCV 87.3, MCH 27.8, MCHC 31.8 L, RDW Std Deviation 51.9 H, RDW Coeff of Serafin 16.6 H, Plt Count 393, MPV 9.7, Immature Gran % (Auto) 1.300 H, Neut % (Auto) 79.8 H, Lymph % (Auto) 11.6 L, [place] % (Auto) 7.0, Eos % (Auto) 0.1, Baso % (Auto) 0.2, Absolute Neuts (auto) 13.3 H, Absolute Lymphs (auto) 1.92, Nucleated RBC % 0, Sodium 132 L, Potassium 4.8, Chloride 99, Carbon Dioxide 27.0, Anion Gap 6, BUN 32 H, Creatinine 1.25 H, Estim Creat Clear Calc 76.91, Est GFR (MDRD) Af Amer 58 L, Est GFR (MDRD) Non-Af 48 L, BUN/Creatinine Ratio 25.6 H, Glucose 329 H, Calcium 9.3, Magnesium 1.8 08/01/23 06:44: POC Glucose 281 H Micro: Microbiology 07/29/23 16:30 Blood Culture (Wb) - Anticubital Right Blood Culture - Preliminary No growth in 48 hours. 07/29/23 17:51 Urine, Clean Catch Urine Culture - Final Presumptive E. coli 07/30/23 19:50 Mucosa - Nasopharyngeal Respiratory Panel (PCR) - Final 07/30/23 14:58 Urine, Clean Catch Legionella Antigen - Final 07/30/23 14:58 Urine, Clean Catch Streptococcus pneumoniae Antigen (M - Final 07/29/23 16:30 Mucosa - Nose SARS-CoV-2, Influenza & RSV (PCR) - Final Physical Exam Const alert and no apparent distress HEENT head/scalp atraumatic and moist oral mucous membranes Resp normal respiratory effort, no retractions, no use of accessory muscles and clear to auscultation bilaterally Cardio regular rate, regular rhythm, S1 normal heart sound and S2 normal heart sound GI normal to inspection, nondistended, normoactive bowel sounds, soft to palpation, non-tender and non-distended Assessment & Plan Assessment/Plan (1) Acidosis, lactic: (2) Abnormal chest x-ray: (3) Abnormal finding on urinalysis: (4) Leukocytosis: (5) Dyspnea: (6) Elevated serum creatinine: (7) E. coli urinary tract infection: PLAN: Plan E. coli UTI * -Culture positive for E. coli with pansensitive organism-Continue ceftriaxone day 2 of 7 for antibiotics Abnormal chest x-ray/shortness of breath/acute exacerbation of COPD * -Patient remains on her baseline oxygen at 2 L-Continue to monitor and titrate up if need be * -Chest x-ray reports infiltrates versus atelectasis * -Continue Solu-Medrol for now with history of COPD--> decreased to daily Solu- Medrol * -Strep pneumo and Legionella are negative * -Patient not able to produce a sputum for culture * -Discontinue azithromycin and continue ceftriaxone * -Continue Mucinex 1200 twice daily * -Continue incentive spirometry-Continue Acapella * -Continue aggressive pulmonary toilet with scheduled and as needed nebulizers * -COVID/flu/RSV negative * -Respiratory viral panel was unremarkable * -Needs follow-up with pulmonary medicine as an outpatient for PFTs and a 6- minute walk test * -Highly recommend tobacco cessation Lower extremity edema/elevated BNP * -Check echocardiogram--> pending for tomorrow * -Continue Lasix 40 mg IV twice daily * -Fluid and sodium restrict diet * -Check daily weights Leukocytosis -Mild initially however now on Solu-Medrol so will be elevated due to demargination of neutrophils -Will need to monitor clinically for improvement as white count will likely be elevated to the above Elevated serum creatinine -Baseline appears to run between 1 and 1.25 -Was 1.4 yesterday and down to 1.2 this morning -Avoid nephrotoxins and continue to monitor -Repeat lab in a.m. Hyperkalemia -Etiology is unclear -Patient is on no potassium supplementation -Does not appear to be acidotic -Repeat lab shows normalized potassium at 4.9 -Repeat lab in a.m. Elevated blood pressure -Blood pressures for the most part have been in goal range -Goal would be 130/80 with her history of diabetes -Will start low-dose losartan while hospitalized as this would be a nice conjunct give medication for her diabetes as well and provide renal protection RV thrombus * already anticoagulated. * BHARGAV for 08/01 Pulmonary artery hypertension * unclear type, certainly many variables: PE, untreated CAMMIE, versus other. * follow up with pulmonary for recommendations for CAMMIE as she has been unable to tolerate CPAP. (inspire device?) * consider VQ scan Chronic conditions * Chronic hypoxic respiratory failure secondary to COPD/history of multiple PE- At baseline wears 2 L-Been currently on baseline oxygen-Encouraged outpatient pulmonary medicine with follow-up * History of recurrent pulmonary emboli-Continue home Eliquis * Diabetes-Patient is on Mounjaro as an outpatient-Blood sugars are markedly elevated likely related to steroid use-Add Lantus 15 units daily-Add SSI kyxf-dyjw-Hvhm wean steroids some and this should help control her sugars-Ac cu-Cheks as ordered-Had recent hemoglobin A1c on 05/28/2023 at which time it was 7.0 * GERD-Continue home omeprazole * Diabetic neuropathy-Continue home gabapentin * Schizophrenia/depression-Patient gets monthly injectable aripiprazole with last dose being 07/28/2023-Continue home Wellbutrin * Morbid obesity-BMI is 49.6-Recommend weight loss-Complicates treatment, prognosis, outcomes * History of tobacco abuse-Still smoking-Patient denies need of nicotine patch DVT prophylaxis -Continue home Eliquis CODE STATUS -DNR CCA with no intubation Charges/Coding Visit Charges Inpatient E&M: 00300 Subs Hosp L2
[2023-08-01] MEDS: Ceftriaxone 1 GM/50 ML BAG IV (09:58)
[2023-08-01] MEDS: Azithromycin 500 MG in Dextrose 5%-Water (250mL Bag) 250 ML 250 MG IV (10:25)
[2023-08-01 12:01] LABS: Bedside Glucose 340 mg/dL (74-106)
[2023-08-01 16:42] LABS: Bedside Glucose 382 mg/dL (74-106)
[2023-08-02 04:16] VITALS: BP 156/99; PULSE 83; RESP 18; TEMP 36.2; O2SAT 95
[2023-08-02 05:09] VITALS: BMI 63.0
[2023-08-02] MEDS: Insulin Lispro 100 UNIT/ML INSULN.PEN SC ×2 (06:34→11:30)
[2023-08-02 06:53] VITALS: PULSE 70; RESP 20; O2SAT 99
[2023-08-02] MEDS: Ipratropium/Albuterol Sulfate 3 ML AMPUL.NEB INHALATION ×2 (06:54→10:59)
[2023-08-02 07:11] LABS: Bedside Glucose 275 mg/dL (74-106)
--- NOTE | 2023-08-02 08:04 | PN.HOSP_ITS ---
Reason for Visit Reason for Visit: Diagnoses Unspecified Escherichia coli [E. coli] as the cause of diseases classified else where (07/29/23) Elevated white blood cell count, unspecified (07/29/23) Acidosis, unspecified (07/29/23) Pneumonia, unspecified organism (07/29/23) Urinary tract infection, site not specified (07/29/23) Dyspnea, unspecified (07/29/23) Other specified abnormal findings of blood chemistry (07/29/23) Unspecified abnormal findings in urine (07/29/23) Abnormal findings on diagnostic imaging of other specified body structures (07/29/23) Objective Data Objective Data Vital Signs: Vital Signs Temp Pulse Resp BP Pulse Ox O2 Del Method O2 Flow Rate 36.2 C L 83 18 156/99 H 95 Room Air 2 08/02/23 04:16 08/02/23 04:16 08/02/23 04:16 08/02/23 04:16 08/02/23 04:16 08/02/23 04:16 08/01/23 22:00 Oxygen Flow Rate (L/min) 2 Oxygen Delivery Method Room Air Weight: 156.4 kg Body Mass Index (BMI) 63.0 Intake & Output: Intake and Output for Last 24 Hours 07/31/23 08/01/23 08/02/23 23:59 23:59 23:59 Intake Total 2245 / 2245 1025 / 1025 400 / 400 Output Total 2800 / 2800 700 / 700 Balance 2245 / 2245 -1775 / -1775 -300 / -300 Lab / Micro Data 08/01/23 05:11 08/01/23 05:11 Labs: Laboratory Results - last 24 hr 08/01/23 11:29: POC Glucose 340 H 08/01/23 16:18: POC Glucose 382 H 08/02/23 06:33: POC Glucose 275 H Micro: Microbiology 07/29/23 16:30 Blood Culture (Wb) - Anticubital Right Blood Culture - Preli minary No growth in 48 hours. 07/29/23 17:51 Urine, Clean Catch Urine Culture - Final Presumptive E. coli 07/30/23 19:50 Mucosa - Nasopharyngeal Respiratory Panel (PCR) - Final 07/30/23 14:58 Urine, Clean Catch Legionella Antigen - Final 07/30/23 14:58 Urine, Clean Catch Streptococcus pneumoniae Antigen (M - Final 07/29/23 16:30 Mucosa - Nose SARS-CoV-2, Influenza & RSV (PCR) - Final Radiography Diagnostic Testing: Radiology Impression Echocardiogram 07/31/23 08:06 Interpretation Summary Normal LV size. The estimated ejection fraction is 65 %. No regional wall motion abnormalities noted. Mild to moderate global right ventricular systolic dysfunction. Mobile mass of the right atrium. Pulmonary artery systolic pressure is 60 mmHg. Moderate pulmonary hypertension. Mass in right atrium measuring 2.8 x 1.9 cm most consistent with a right atrial thrombus Stage 1 diastolic dysfunction. Contrast injection was performed. Ordering Physician: Annabelle Ayoub Referring Physician: Afia Machado Performed By: Grace Martinez RDCS Assessment & Plan Assessment/Plan (1) Acidosis, lactic: (2) Abnormal chest x-ray: (3) Abnormal finding on urinalysis: (4) Leukocytosis: (5) Dyspnea: (6) Elevated serum creatinine: (7) E. coli urinary tract infection: PLAN: Plan E. coli UTI * -Culture positive for E. coli with pansensitive organism-Continue ceftriaxone day 2 of 7 for antibiotics Abnormal chest x-ray/shortness of breath/acute exacerbation of COPD * -Patient remains on her baseline oxygen at 2 L-Continue to monitor and titrate up if need be * -Chest x-ray reports infiltrates versus atelectasis * -Continue Solu-Medrol for now with history of COPD--> decreased to daily Solu- Medrol * -Strep pneumo and Legionella are negative * -Patient not able to produce a sputum for culture * -Discontinue azithromycin and continue ceftriaxone * -Continue Mucinex 1200 twice daily * -Continue incentive spirometry-Continue Acapella * -Continue aggressive pulmonary toilet with scheduled and as needed nebulizers * -COVID/flu/RSV negative * -Respiratory viral panel was unremarkable * -Needs follow-up with pulmonary medicine as an outpatient for PFTs and a 6- minute walk test * -Highly recommend tobacco cessation Lower extremity edema/elevated BNP * -Check echocardiogram--> pending for tomorrow * -Continue Lasix 40 mg IV twice daily * -Fluid and sodium restrict diet * -Check daily weights Leukocytosis -Mild initially however now on Solu-Medrol so will be elevated due to demargination of neutrophils -Will need to monitor clinically for improvement as white count will likely be elevated to the above Elevated serum creatinine -Baseline appears to run between 1 and 1.25 -Was 1.4 yesterday and down to 1.2 this morning -Avoid nephrotoxins and continue to monitor -Repeat lab in a.m. Hyperkalemia -Etiology is unclear -Patient is on no potassium supplementation -Does not appear to be acidotic -Repeat lab shows normalized potassium at 4.9 -Repeat lab in a.m. Elevated blood pressure -Blood pressures for the most part have been in goal range -Goal would be 130/80 with her history of diabetes -Will start low-dose losartan while hospitalized as this would be a nice conjunct give medication for her diabetes as well and provide renal protection RV thrombus * already anticoagulated. * BHARGAV for 08/01 Pulmonary artery hypertension * unclear type, certainly many variables: PE, untreated CAMMIE, versus other. * follow up with pulmonary for recommendations for CAMMIE as she has been unable to tolerate CPAP. (inspire device?) * consider VQ scan Chronic conditions * Chronic hypoxic respiratory failure secondary to COPD/history of multiple PE- At baseline wears 2 L-Been currently on baseline oxygen-Encouraged outpatient pulmonary medicine with follow-up * History of recurrent pulmonary emboli-Continue home Eliquis * Diabetes-Patient is on Mounjaro as an outpatient-Blood sugars are markedly elevated likely related to steroid use-Add Lantus 15 units daily-Add SSI sgvv-zvmr-Nmft wean steroids some and this should help control her mmxukx-Nvej-Ofsoj as ordered-Had recent hemoglobin A1c on 05/28/2023 at which time it was 7.0 * GERD-Continue home omeprazole * Diabetic neuropathy-Continue home gabapentin * Schizophrenia/depression-Patient gets monthly injectable aripiprazole with last dose being 07/28/2023-Continue home Wellbutrin * Morbid obesity-BMI is 49.6-Recommend weight loss-Complicates treatment, prognosis, outcomes * History of tobacco abuse-Still smoking-Patient denies need of nicotine patch DVT prophylaxis -Continue home Eliquis CODE STATUS -DNR CCA with no intubation
--- NOTE | 2023-08-02 08:04 | PCM.PN.HOSP ---
Reason for Visit Reason for Visit: Diagnoses Unspecified Escherichia coli [E. coli] as the cause of diseases classified elsewhere (07/29/23) Elevated white blood cell count, unspecified (07/29/23) Acidosis, unspecified (07/29/23) Pneumonia, unspecified organism (07/29/23) Urinary tract infection, site not specified (07/29/23) Dyspnea, unspecified (07/29/23) Other specified abnormal findings of blood chemistry (07/29/23) Unspecified abnormal findings in urine (07/29/23) Abnormal findings on diagnostic imaging of other specified body structures (07/29/23) Subjective Subjective Breathing better. No events overnight. Objective Data Objective Data Vital Signs: Vital Signs Temp Pulse Resp BP Pulse Ox O2 Del Method O2 Flow Rate 36.2 C L 83 18 156/99 H 95 Room Air 2 08/02/23 04:16 08/02/23 04:16 08/02/23 04:16 08/02/23 04:16 08/02/23 04:16 08/02/23 04:16 08/01/23 22:00 Oxygen Flow Rate (L/min) 2 Oxygen Delivery Method Room Air Weight: 156.4 kg Body Mass Index (BMI) 63.0 Intake & Output: Intake and Output for Last 24 Hours 07/31/23 08/01/23 08/02/23 23:59 23:59 23:59 Intake Total 2245 / 2245 1025 / 1025 400 / 400 Output Total 2800 / 2800 700 / 700 Balance 2245 / 2245 -1775 / -1775 -300 / -300 Lab / Micro Data 08/01/23 05:11 08/01/23 05:11 Labs: Laboratory Results - last 24 hr 08/01/23 11:29: POC Glucose 340 H 08/01/23 16:18: POC Glucose 382 H 08/02/23 06:33: POC Glucose 275 H Micro: Microbiology 07/29/23 16:30 Blood Culture (Wb) - Anticubital Right Blood Culture - Preliminary No growth in 48 hours. 07/29/23 17:51 Urine, Clean Catch Urine Culture - Final Presumptive E. coli 07/30/23 19:50 Mucosa - Nasopharyngeal Respiratory Panel (PCR) - Final 07/30/23 14:58 Urine, Clean Catch Legionella Antigen - Final 07/30/23 14:58 Urine, Clean Catch Streptococcus pneumoniae Antigen (M - Final 07/29/23 16:30 Mucosa - Nose SARS-CoV-2, Influenza & RSV (PCR) - Final Radiography Diagnostic Testing: Radiology Impression Echocardiogram 07/31/23 08:06 Interpretation Summary Normal LV size. The estimated ejection fraction is 65 %. No regional wall motion abnormalities noted. Mild to moderate global right ventricular systolic dysfunction. Mobile mass of the right atrium. Pulmonary artery systolic pressure is 60 mmHg. Moderate pulmonary hypertension. Mass in right atrium measuring 2.8 x 1.9 cm most consistent with a right atrial thrombus Stage 1 diastolic dysfunction. Contrast injection was performed. Ordering Physician: Annabelle Ayoub Referring Physician: Afia Machado Performed By: Grace Martinez RDCS Physical Exam Const alert and no apparent distress Resp normal respiratory effort and no retractions Cardio regular rate, regular rhythm, S1 normal heart sound and S2 normal heart sound GI normal to inspection, nondistended, normoactive bowel sounds, soft to palpation, non-tender and non-distended Extremity Extremity Narrative: minimal LE edema. Assessment & Plan Assessment/Plan (1) Acidosis, lactic: (2) Abnormal chest x-ray: (3) Abnormal finding on urinalysis: (4) Leukocytosis: (5) Dyspnea: (6) Elevated serum creatinine: (7) E. coli urinary tract infection: PLAN: Plan E. coli UTI -Culture positive for E. coli with pansensitive organism- Discharge with nitrofurantoin. Abnormal chest x-ray/shortness of breath/acute exacerbation of COPD -Patient remains on her baseline oxygen at 2 L-Continue to monitor and titrate up if need be -Chest x-ray reports infiltrates versus atelectasis -Continue Solu-Medrol for now with history of COPD--> decreased to daily Solu-Medrol. Change to prednisone. -Strep pneumo and Legionella are negative -Patient not able to produce a sputum for culture -Discontinue azithromycin and continue ceftriaxone -Continue Mucinex 1200 twice daily -Continue incentive spirometry-Continue Acapella -Continue aggressive pulmonary toilet with scheduled and as needed nebulizers -COVID/flu/RSV negative. Respiratory viral panel was unremarkable -Needs follow-up with pulmonary medicine as an outpatient for PFTs and a 6-minute walk test -Highly recommend tobacco cessation Acute HFpEF -Echo shows an EF 65% with PASP of 60 mmHg. -Discharge with furosmide. -Fluid and sodium restrict diet -Check daily weights RV thrombus already anticoagulated. DW Dr. Xie 07/31, no plan for BHARGAV. Follow up with cardiology for follow up 2d echo Pulmonary artery hypertension unclear type, certainly many variables: PE, untreated CAMMIE, versus other. follow up with pulmonary for recommendations for CAMMIE as she has been unable to tolerate CPAP. (inspire device?) Chronic conditions Chronic hypoxic respiratory failure secondary to COPD/history of multiple PE-At baseline wears 2 L-Been currently on baseline oxygen-Encouraged outpatient pulmonary medicine with follow-up History of recurrent pulmonary emboli-Continue home Eliquis Diabetes-Patient is on Mounjaro as an outpatient-Blood sugars are markedly elevated likely related to steroid use-Add Lantus 15 units daily-Add SSI uwkm-kffs-Ohmv wean steroids some and this should help control her zykats-Xxew-Mlioi as ordered-Had recent hemoglobin A1c on 05/28/2023 at which time it was 7.0 GERD-Continue home omeprazole Diabetic neuropathy-Continue home gabapentin Schizophrenia/depression-Patient gets monthly injectable aripiprazole with last dose being 07/28/2023-Continue home Wellbutrin Morbid obesity-BMI is 49.6-Recommend weight loss-Complicates treatment, prognosis, outcomes History of tobacco abuse-Still smoking-Patient denies need of nicotine patch DVT prophylaxis -Continue home Eliquis CODE STATUS -DNR CCA with no intubation DC home.
[2023-08-02] MEDS: Cholecalciferol (Vit D3) 125 MCG CAPSULE (5,000 UNITS) PO (09:23)
[2023-08-02] MEDS: Ceftriaxone 1 GM/50 ML BAG IV (09:23)
[2023-08-02] MEDS: APIXABAN 5 MG TABLET PO (09:23)
[2023-08-02] MEDS: guaiFENesin 1,200 MG Tablet 1200 MG PO (09:23)
[2023-08-02] MEDS: Gabapentin 300 MG Capsule PO ×2 (09:23→11:34)
[2023-08-02] MEDS: Acyclovir 200 MG Capsule 400 MG PO (09:23)
[2023-08-02] MEDS: buPROPion (XL) 300 MG TABLET.XL PO (09:24)
[2023-08-02] MEDS: Losartan Potassium 25 MG Tablet PO (09:24)
[2023-08-02] MEDS: Oxymetazoline 0.05% 1 SPRAY SPRAY.BTL 2 SPRAY NASAL (09:24)
[2023-08-02] MEDS: Pantoprazole Sodium 20 MG Tablet PO (09:24)
[2023-08-02] MEDS: Azithromycin 500 MG in Dextrose 5%-Water (250mL Bag) 250 ML 250 MG IV (09:25)
[2023-08-02] MEDS: Insulin Glargine-YFGN 100 UNIT/ML Pen 15 UNIT SC (09:37)
[2023-08-02 10:00] VITALS: BP 122/78; PULSE 77; RESP 12; TEMP 37; O2SAT 94
[2023-08-02 10:15] VITALS: BP 122/78; PULSE 75; RESP 14; TEMP 36.9; O2SAT 94
[2023-08-02] MEDS: Furosemide 40 MG/4 ML Vial IV (10:19)
[2023-08-02 11:00] VITALS: PULSE 80; RESP 20; O2SAT 95
[2023-08-02 11:51] LABS: Bedside Glucose 276 mg/dL (74-106)
--- NOTE | 2023-08-02 13:21 | DS.PCM_ITS ---
Providers Date of Admission: 07/29/23 Primary Care Physician: Afia Machado NP-C Reason For Visit: PNEUMONIA AND UTI Diagnosis Discharge Diagnosis (1) Acidosis, lactic: Status: Resolved Code(s): E87.20 - Acidosis, unspecified (2) Abnormal chest x-ray: Status: Acute Code(s): R93.89 - Abnormal findings on diagnostic imaging of other specified body structures (3) Abnormal finding on urinalysis: Status: Acute Code(s): R82.90 - Unspecified abnormal findings in urine (4) Leukocytosis: Status: Acute Code(s): D72.829 - Elevated white blood cell count, unspecified (5) Dyspnea: Status: Acute Code(s): R06.00 - Dyspnea, unspecified (6) Elevated serum creatinine: Status: Acute Code(s): R79.89 - Other specified abnormal findings of blood chemistry (7) E. coli urinary tract infection: Status: Acute Code(s): N39.0 - Urinary tract infection, site not specified; B96.20 - Unspecified Escherichia coli [E. coli] as the cause of diseases classified elsewhere Plan E. coli UTI * -Culture positive for E. coli with pansensitive organism- * Discharge with nitrofurantoin. Abnormal chest x-ray/shortness of breath/acute exacerbation of COPD * -Patient remains on her baseline oxygen at 2 L-Continue to monitor and titrate up if need be * -Chest x-ray reports infiltrates versus atelectasis * -Continue Solu-Medrol for now with history of COPD--> decreased to daily Solu- Medrol. Change to prednisone. * -Strep pneumo and Legionella are negative * -Patient not able to produce a sputum for culture * -Discontinue azithromycin and continue ceftriaxone * -Continue Mucinex 1200 twice daily * -Continue incentive spirometry-Continue Acapella * -Continue aggressive pulmonary toilet with scheduled and as needed nebulizers * -COVID/flu/RSV negative. Respiratory viral panel was unremarkable * -Needs follow-up with pulmonary medicine as an outpatient for PFTs and a 6- minute walk test * -Highly recommend tobacco cessation Acute HFpEF * -Echo shows an EF 65% with PASP of 60 mmHg. * -Discharge with furosmide. * -Fluid and sodium restrict diet * -Check daily weights RV thrombus
--- NOTE | 2023-08-02 13:21 | PCM.DC.SUM ---
Providers Date of Admission: 07/29/23 Primary Care Physician: OMAIRA SolorioC Reason For Visit: PNEUMONIA AND UTI Diagnosis Discharge Diagnosis (1) Acidosis, lactic: Status: Resolved Code(s): E87.20 - Acidosis, unspecified (2) Abnormal chest x-ray: Status: Acute Code(s): R93.89 - Abnormal findings on diagnostic imaging of other specified body structures (3) Abnormal finding on urinalysis: Status: Acute Code(s): R82.90 - Unspecified abnormal findings in urine (4) Leukocytosis: Status: Acute Code(s): D72.829 - Elevated white blood cell count, unspecified (5) Dyspnea: Status: Acute Code(s): R06.00 - Dyspnea, unspecified (6) Elevated serum creatinine: Status: Acute Code(s): R79.89 - Other specified abnormal findings of blood chemistry (7) E. coli urinary tract infection: Status: Acute Code(s): N39.0 - Urinary tract infection, site not specified; B96.20 - Unspecified Escherichia coli [E. coli] as the cause of diseases classified elsewhere Plan E. coli UTI -Culture positive for E. coli with pansensitive organism- Discharge with nitrofurantoin. Abnormal chest x-ray/shortness of breath/acute exacerbation of COPD -Patient remains on her baseline oxygen at 2 L-Continue to monitor and titrate up if need be -Chest x-ray reports infiltrates versus atelectasis -Continue Solu-Medrol for now with history of COPD--> decreased to daily Solu-Medrol. Change to prednisone. -Strep pneumo and Legionella are negative -Patient not able to produce a sputum for culture -Discontinue azithromycin and continue ceftriaxone -Continue Mucinex 1200 twice daily -Continue incentive spirometry-Continue Acapella -Continue aggressive pulmonary toilet with scheduled and as needed nebulizers -COVID/flu/RSV negative. Respiratory viral panel was unremarkable -Needs follow-up with pulmonary medicine as an outpatient for PFTs and a 6-minute walk test -Highly recommend tobacco cessation Acute HFpEF -Echo shows an EF 65% with PASP of 60 mmHg. -Discharge with furosmide. -Fluid and sodium restrict diet -Check daily weights RV thrombus already anticoagulated. MARISELA Xie 07/31, no plan for BHARGAV. Follow up with cardiology for follow up 2d echo Pulmonary artery hypertension unclear type, certainly many variables: PE, untreated CAMMIE, versus other. follow up with pulmonary for recommendations for CAMMIE as she has been unable to tolerate CPAP. (inspire device?) Chronic conditions Chronic hypoxic respiratory failure secondary to COPD/history of multiple PE-At baseline wears 2 L-Been currently on baseline oxygen-Encouraged outpatient pulmonary medicine with follow-up History of recurrent pulmonary emboli-Continue home Eliquis Diabetes-Patient is on Mounjaro as an outpatient-Blood sugars are markedly elevated likely related to steroid use-Add Lantus 15 units daily-Add SSI mxsv-vvwe-Xkhh wean steroids some and this should help control her ykqkek-Mzaa-Xbjzg as ordered-Had recent hemoglobin A1c on 05/28/2023 at which time it was 7.0 GERD-Continue home omeprazole Diabetic neuropathy-Continue home gabapentin Schizophrenia/depression-Patient gets monthly injectable aripiprazole with last dose being 07/28/2023-Continue home Wellbutrin Morbid obesity-BMI is 49.6-Recommend weight loss-Complicates treatment, prognosis, outcomes History of tobacco abuse-Still smoking-Patient denies need of nicotine patch DVT prophylaxis -Continue home Eliquis CODE STATUS -DNR CCA with no intubation DC home. Medications at Discharge Home Medications valacyclovir 1 gram tablet 1,000 mg PO DAILY anti virus 08/12/18 aripiprazole lauroxil 882 mg/3.2 mL suspension, ext.rel. IM syringe 882 mg IM QMONTH mental health 09/12/18 cholecalciferol (vitamin D3) 25 mcg (1,000 unit) tablet 5,000 unit PO DAILY vitamin 07/02/20 gabapentin 300 mg capsule 300 mg PO TIDCM nerve pain 07/02/20 bupropion HCl 300 mg 24 hr tablet, extended release 300 mg PO DAILY mental health 09/04/22 omeprazole 20 mg tablet,delayed release 20 mg PO DAILY reflux 09/04/22 acetaminophen 325 mg tablet 650 mg (2 x 325 mg) PO Q4H PRN PRN Fever, pain 1-01/25 #0 tabs 09/05/22 albuterol sulfate 90 mcg/actuation aerosol inhaler (Ventolin HFA) 1 - 2 puff inhalation Q4H PRN PRN Wheezing ##1 09/24/22 apixaban 5 mg tablet (Eliquis) 5 mg PO Q12H blood thinner 05/27/23 tirzepatide 5 mg/0.5 mL subcutaneous pen injector (Mounjaro) 5 mg subcut QWEEK for diabetes 05/27/23 diabetic supplies, miscellan. #1 ea 08/02/23 furosemide 40 mg tablet 40 mg PO DAILY #30 tabs 08/02/23 insulin glargine-yfgn 100 unit/mL (3 mL) subcutaneous pen 15 unit (0.15 mL) subcut DAILY #15 mL 08/02/23 insulin lispro 100 unit/mL subcutaneous pen (Humalog KwikPen (U-100) Insulin) 10 unit subcut TIDAC #15 mL 08/02/23 losartan 25 mg tablet 25 mg PO DAILY #30 tabs 08/02/23 nitrofurantoin monohydrate/macrocrystals 100 mg capsule (Macrobid) 100 mg PO Q12H 5 days #10 caps 08/02/23 prednisone 20 mg tablet 40 mg (2 x 20 mg) PO DAILY #10 tabs 08/02/23 Hospital Course Operations None Procedures 2-D Echocardiogram Summary of Care Provided Minutes Spent on Discharge: 45 Weight / BMI Weight Weight: 156.4 kg Body Mass Index (BMI) 63.0 ABG / Lab / Microbiology Data 08/01/23 05:11 08/01/23 05:11 Laboratory: Laboratory Results - last 24 hr 08/01/23 16:18: POC Glucose 382 H 08/02/23 06:33: POC Glucose 275 H 08/02/23 11:29: POC Glucose 276 H Microbiology: Microbiology 07/29/23 16:30 Blood Culture (Wb) - Anticubital Right Blood Culture - Preliminary No growth in 48 hours. 07/29/23 17:51 Urine, Clean Catch Urine Culture - Final Presumptive E. coli 07/30/23 19:50 Mucosa - Nasopharyngeal Respiratory Panel (PCR) - Final 07/30/23 14:58 Urine, Clean Catch Legionella Antigen - Final 07/30/23 14:58 Urine, Clean Catch Streptococcus pneumoniae Antigen (M - Final 07/29/23 16:30 Mucosa - Nose SARS-CoV-2, Influenza & RSV (PCR) - Final D/C Instructions Discharge Diet: 2000 Calorie Control Diet, 2000 mg Sodium Diet and - (fluid restict 1.5 liters day.) Meaningful Use Info Meaningful Use Diagnoses (Choose all that apply): CHF CHF PADMINI/ARB ordered at discharge?: Yes Documented LVEF (%): 65 Discharge Plan Admission Admit Date/Time: 07/29/23 18:37 Primary Reason for Your Visit: UTI. heart failure. Attending Provider: Chino Ford Primary Care Provider: Afia Machado NP Consulting Providers: Sergey Colon; Annabelle Ayoub Instructions Patient Instructions: HF Goals for Management, Heart Failure Meds, Heart Failure Flare Up Signs, Heart Failure: Tracking Your Weight, Heart Failure: Being Active, Heart Failure Make Changes Diet, Heart Failure: Know Your Baselines, Heart Failure: Travel Concerns Additional Instructions / Restrictions: You had a urinary tract fraction which she will complete antibiotics with Macrobid. Your respiratory status was more likely due to component of volume overload commonly known as congestive heart failure. Your heart function is normal but this will need to be addressed with taking a diuretic, known as Lasix, restricting your fluid intake to 1.5 L of fluid per day, limiting your sodium intake to no more than 2 g of salt per day and checking her weight daily. Please notify your physician if you put on more than 2 pounds in 1 day or 3 pounds in 1 week. Complicating this is he also have pulmonary artery hypertension. This is different than standard hypertension is involved with circulation of your lungs. The treatment for pulmonary artery hypertension is treating the underlying causes, which in your case, may be sleep apnea and your history of blood clots. Please continue taking your Eliquis. I do recommend that you follow-up with pulmonary to see what other options would be available for your sleep apnea will not be going back on CPAP or utilizing something else such as the Inspire device. Your diabetes has been uncontrolled since you have been here. This is partly due to the steroids, but primarily it has been uncontrolled. You will be started on long-acting insulin (Lantus, insulin glargine) and short-acting insulin with meals. Discharge Orders/Prescriptions Prescriptions: New insulin glargine-yfgn 100 unit/mL (3 mL) Insulin Pen 15 unit subcut DAILY Qty: 15 0RF insulin lispro [Humalog KwikPen Insulin] 100 unit/mL Insulin Pen 10 unit subcut TIDAC Qty: 15 0RF Protocol: 5. Sliding Scale Insulin High Dosing Condition: 150-209 mg/dl = 3 units Condition: 210-259 mg/dl = 6 units Condition: 260-324 mg/dl = 9 units Condition: 325-374 mg/dl = 12 units Condition: 375-409 mg/dl = 14 units Condition: 410-449 mg/dl = 16 units Condition: Greater than 449 call physician Protocol Text: - Use for Total Daily Dose of Insulin 81-120 units - Very insulin resistant or septic patients HIGH DOSING ALGORITHM losartan 25 mg Tablet 25 mg PO DAILY Qty: 30 0RF furosemide 40 mg tablet 40 mg PO DAILY Qty: 30 0RF (DME) diabetic supplies, miscellan. Misc See Rx Instructions .Route Qty: 1 0RF Rx Instructions: As directed prednisone 20 mg tablet 40 mg PO DAILY Qty: 10 0RF nitrofurantoin monohyd/m-cryst [Macrobid] 100 mg capsule 100 mg PO Q12H 5 Days Qty: 10 0RF Rx Instructions: must administer with a meal/food Continued valacyclovir 1,000 MG tablet 1,000 mg PO DAILY aripiprazole lauroxil 882 MG/3.2 ML suspension,extended rel syring 882 mg IM QMONTH gabapentin 300 MG capsule 300 mg PO TIDCM cholecalciferol (vitamin D3) 1,000 UNIT tablet 5,000 unit PO DAILY omeprazole 20 mg Tablet,Delayed Release (Dr/Ec) 20 mg PO DAILY bupropion HCl 300 mg tablet extended release 24 hr 300 mg PO DAILY acetaminophen 325 mg Tablet 650 mg PO Q4H PRN PRN (Reason: Fever, pain 1-01/25) Qty: 0 0RF albuterol sulfate [Ventolin HFA] 90 mcg/actuation HFA aerosol inhaler 1 - 2 puff inhalation Q4H PRN PRN (Reason: Wheezing) Qty: 1 0RF Eliquis 5 mg tablet 5 mg PO Q12H Mounjaro 5 mg/0.5 mL pen injector 5 mg subcut QWEEK Referrals / Follow Up: [facility] [Provider Group] - Within 3 Months [facility] [Provider Group] - Within 1 Month Afia Machado [employer] SUPERVISOR, [employer] SUPERVISOR-C [Primary Care Provider] - Within 2 Weeks Disposition Disposition (needs filled in before D/C Order can be placed): Home, Self Care Charges/Coding Visit Charges Inpatient E&M: 44254 Disch Hosp >30min
[2023-08-02 13:36] VITALS: BP 124/78; PULSE 70; RESP 12; TEMP 36.8; O2SAT 95
--- NOTE | 2023-08-02 13:59 | CASEMGMT ---
Patient has order for discharge. RN CM in to discuss needs at discharge. Patient states she has glucometer at home. Patient inquired about aide services, CM advised patient to reach out to at [facility] for assistance, patient voiced understanding. Patient states she will need transportation home, unit aid to inquire about [facility]. Patient denies further needs or help at discharge. Patient had no further questions or concerns at this time.
== END 2023-08-02 14:06 | disposition home or self-care (01) | DRG 190 ==
LOC: ED 18:15 → PCU 18:40
PROVIDERS: Internal Medicine; Admitting Provider Family Medicine; Emergency Provider Emergency Medicine; PCP Nurse Practitioner Family
DX: J44.1 Chronic obstructive pulmonary disease with (acute) exacerbation (principal); I50.31 Acute diastolic (congestive) heart failure; J96.11 Chronic respiratory failure with hypoxia; E87.20 Acidosis, unspecified; N39.0 Urinary tract infection, site not specified; Z68.42 Body mass index [BMI] 45.0-49.9, adult; I27.23 Pulmonary hypertension due to lung diseases and hypoxia; I51.3 Intracardiac thrombosis, not elsewhere classified; E11.40 Type 2 diabetes mellitus with diabetic neuropathy, unspecified; B96.20 Unspecified Escherichia coli [E. coli] as the cause of diseases classified elsewhere; F31.9 Bipolar disorder, unspecified; E66.01 Morbid (severe) obesity due to excess calories; F20.9 Schizophrenia, unspecified; E11.65 Type 2 diabetes mellitus with hyperglycemia; F17.210 Nicotine dependence, cigarettes, uncomplicated; K21.9 Gastro-esophageal reflux disease without esophagitis; G47.33 Obstructive sleep apnea (adult) (pediatric); E87.5 Hyperkalemia; R94.4 Abnormal results of kidney function studies; Z66 Do not resuscitate; Z99.81 Dependence on supplemental oxygen; Z79.01 Long term (current) use of anticoagulants; Z79.85 Long-term (current) use of injectable non-insulin antidiabetic drugs; Z79.899 Other long term (current) drug therapy; Z86.711 Personal history of pulmonary embolism
CPT/HCPCS: 36415; 71045; 80048; 80053; 80307; 81001; 82962; 83605; 83735; 83880; 84100; 84443; 84484; 85025; 87040; 87086; 87088; 87186; 87449; 87631; 87633; 93005; 93306; 94640; 94668; 99285; J7040; J7120; Q9957; A4216; C8929; J1940

== ENCOUNTER → 2023-11-24 | Outpatient (CLI) | payer MEDICARE, MEDICAID, SELFPAY | END | disposition home or self-care (01) | LOC: SL 19:50 | PROVIDERS: PCP Nurse Practitioner Family; Referring Provider Nurse Practitioner Acute Care; Visit Provider Nurse Practitioner Acute Care | DX: G47.33 Obstructive sleep apnea (adult) (pediatric) (principal) | CPT/HCPCS: 95811 ==

== ENCOUNTER → 2023-12-15 | Outpatient (CLI) | payer MEDICARE, MEDICAID, SELFPAY | END | disposition home or self-care (01) | LOC: SL 14:01 | PROVIDERS: PCP Nurse Practitioner Family; Referring Provider Nurse Practitioner Acute Care; Visit Provider Nurse Practitioner Acute Care | DX: G47.33 Obstructive sleep apnea (adult) (pediatric) (principal) ==

== ENCOUNTER → 2024-03-09 | Outpatient (CLI) | payer MEDICARE, MEDICAID, SELFPAY ==
--- NOTE | 2024-03-09 14:00 | CT_ITS ---
EXAM: CT CHEST, LUNG CANCER SCREENING WITHOUT INTRAVENOUS CONTRAST CLINICAL INDICATION: current smoker TECHNIQUE: Helically acquired images were obtained of the chest without intravenous contrast using low dose (LDCT) lung cancer screening protocol. This CT exam was performed using one or more of the following dose reduction techniques: automated exposure control, adjustment of the mA and/or kV according to patient size, and/or use of iterative reconstruction technique. COMPARISON: No relevant prior studies available. FINDINGS: LUNGS AND PLEURAL SPACES: There is a large pleural-based density at the right lung base and measures 2.8 x 2.2 cm and may represent pneumonia. Pleural-based nodule in the right lung apex that measures 7 x 8 mm. There is scarring in the left lung base. There is emphysematous bulla that has a solid nodule within it. The nodule measures 1.4 x 1.0 cm. There is a pleural-based nodule in the left lower lobe posteriorly that measures 9 x 10 mm. HEART: Unremarkable. Heart size is normal. No pericardial effusion. No significant coronary artery calcifications. MEDIASTINUM: Unremarkable. No mediastinal or hilar adenopathy. Esophagus is unremarkable. No hiatal hernia. THYROID: Unremarkable. No thyroid lesions. BONES/JOINTS: Unremarkable. No suspicious lytic or blastic abnormality. VASCULATURE: Unremarkable. Thoracic aorta is non-dilated. LYMPH NODES: Unremarkable. No enlarged lymph nodes. CT/Low Dose CT Lung Screening IMPRESSION: Multiple nodular densities in largest in the right lower lobe possibly representing a focal area of pneumonia. There is a cystic structure with a nodule within it in the left lower lobe. Lung-RADS score: 4B - Very Suspicious. Recommend chest CT with or without contrast, PET/CT and/or tissue sampling depending on the probability of malignancy and comorbidities. PET/CT may be used when there is a >=8 mm solid component. For new large nodules that develop on an annual repeat screening CT, a 1 month LDCT may be recommended to address potentially infectious or inflammatory conditions. Electronically Signed: Rush Benton MD at 0:08 EST ,
== END | disposition home or self-care (01) ==
LOC: CT 13:50
PROVIDERS: PCP Nurse Practitioner Family; Referring Provider Nurse Practitioner Acute Care; Visit Provider Nurse Practitioner Acute Care
DX: Z12.2 Encounter for screening for malignant neoplasm of respiratory organs (principal); F17.210 Nicotine dependence, cigarettes, uncomplicated
CPT/HCPCS: 71271

== ENCOUNTER → 2024-03-27 | Outpatient (CLI) | payer MEDICARE, MEDICAID, SELFPAY ==
--- NOTE | 2024-03-27 08:30 | PET_ITS ---
EXAMINATION: FDG PET-CT INDICATIONS: A 53-year-old female with history of pulmonary nodularity. COMPARISON EXAMINATION: CT of the chest dated 03/09/24 TECHNIQUE: Following the intravenous administration of 12.47 mCi of F-18 deoxyglucose via the left antecubital fossa, multiplanar image acquisitions of the neck, chest, abdomen and pelvis to level of mid thigh, obtained at one hour post radiopharmaceutical administration contemporaneously interpreted with the current CT of the neck, chest, abdomen and pelvis, to level of mid thigh, dated 03/27/[address] of the chest dated 03/09/24 reveals: BLOOD GLUCOSE LEVEL:?? 134 mg/dl?HEIGHT:?62 inches?WEIGHT: 250 lbs. FINDINGS: HEAD/NECK: There is no evidence of abnormal increased glucose metabolism in the pharyngeal mucosal space, parapharyngeal space, bilateral-lateral and anterior neck, hypopharynx and distribution of the laryngeal structures. The visualized portion of the cerebral cortical-subcortical structures demonstrate symmetric and preserved glucose metabolism. Prominent uptake is noted in the anterior neck, laryngeal structures most consistent with physiologic tracer uptake. CHEST: There is no quantitative scintigraphic evidence of abnormal increased glucose metabolism within the context of the bilateral hemithorax pulmonary parenchyma, right and left hemithorax pleural interface, mediastinal structures and right-left thoracic perihilum. Prominent radiopharmaceutical concentration is identified in the left ventricular myocardium commensurate with the [place]. Pertinent chest CT findings are as follows. Parenchymal densities defined in the bilateral hemithorax demonstrate no evidence of quantitatively significant increased glucose metabolism. There is atherosclerotic calcification defined in the thoracic aorta without evidence of dilatation-aneurysm formation. A small right hemithorax pleural effusion is defined. ABDOMEN/PELVIS: Normal physiologic distribution of the radiopharmaceutical is apparent in the hepatic and splenic parenchyma, both renal units, bladder and visualized intestinal tract. Diffuse radiopharmaceutical concentration is noted in all four quadrants of the abdomen and pelvis potentially at the level of the distal rectal vault. Pertinent abdomen and pelvis CT findings are as follows. An intrauterine contraceptive device is defined. A fat containing left anterior abdominal wall hernia is noted. Cyst formation is defined in the left kidney. The gallbladder is not clearly identified. Pelvic arterial calcification is observed. Urine contamination artifact is noted in the anterior-posterior perineum. SKELETAL: Degenerative changes are noted in the cervical, thoracic and lumbar spine without evidence of increased radiopharmaceutical concentration. PET/PET/CT Tumor Base -Thigh Init IMPRESSION: 1. NEGATIVE EXAMINATION. There is no definitive quantitative scintigraphic evidence of viable neoplasm with special attention paid to the bilateral lung field. 2. Metabolic and/or anatomic stability may be ensured in the bilateral hemithorax pulmonary parenchymal ametabolic parenchymal densities with repeat FDG PET study and/or CT of the thorax in 3-6 months if clinically indicated. (Xiu, Journal of Nuclear Medicine 45:88, P2004 Shonna, Seminars in Thoracic and Cardiovascular Surgery 14:292, 2002). 3. Facilitated uptake noted in the lower pelvis associated with the rectum-rectal vault is most consistent with physiologic tracer uptake. If intraluminal soft tissue mass formation is suspected, correlation with digital examination or direct visualization is recommended. Electronic Signature Deonte Pate D.O. Accurate Quantification of SUVs for this report are calculated using the exclusive [employer]. (U.S. Patent No. [phone] [id number] B2 [phone] [place] patent [phone]). Standardization and correction of the FDG SUV metric via [employer] technology allow for vendor non-specific objective quantitative examination comparison and optimization of the sensitivity and specificity of the FDG PET-CT examination. [email or web address] Electronically Signed: Deonte Pate DO at 23:00 EST ,
== END | disposition home or self-care (01) ==
LOC: ONC 08:35
PROVIDERS: PCP Nurse Practitioner Family; Referring Provider Nurse Practitioner Family; Visit Provider Nurse Practitioner Family
DX: R91.8 Other nonspecific abnormal finding of lung field (principal)
CPT/HCPCS: 78815; A9552

== ENCOUNTER → 2024-03-29 | Outpatient (CLI) | payer MEDICARE, MEDICAID, SELFPAY ==
--- NOTE | 2024-03-29 11:29 | ECHOCS_ITS ---
Reason For Study: SHORTNESS OF BREATH Procedure This was a 2D Doppler, Color Flow transthoracic echocardiogram. The study was technically difficult. Contrast injection was performed. Exam performed in department. Left Ventricle Normal LV size. The estimated ejection fraction is 55 %. Diastolic function is indeterminate. No regional wall motion abnormalities noted. Right Ventricle Severely dilated right ventricle. Normal systolic function. Atria The left and right atria are normal. No doppler evidence for ASD. Mitral Valve There is no mitral valve stenosis. No mitral valve insufficiency. Tricuspid Valve There is no tricuspid stenosis. Mild to moderate (1-2+) tricuspid valve insufficiency. Pulmonary artery systolic pressure is 60 mmHg. Aortic Valve Trisinus/trileaflet aortic valve. Aortic sclerosis, no stenosis. There is no aortic stenosis. No aortic valve insufficiency. Pulmonic Valve There is no pulmonic valvular stenosis. Trivial pulmonic valve insufficiency. Great Vessels Normal aortic root. Pericardium/Pleural No pericardial effusion. Medication 22 gauge I.V. with prn adaptor inserted into left arm. Diluted definity 2ml given slow IV push to enhance endocardial definition. MMode/2D Measurements & Calculations LVIDd: 5.0 cm IVSd: 0.99 cm LVOT diam: 1.9 cm LVIDs: 3.2 cm LVPWd: 0.91 cm RVDd: 5.1 cm FS: 35.9 % LVOT area: 2.9 cm2 asc Aorta Diam: 3.5 cm LAV(MOD-bp): 34.6 ml LVAd ap4: 26.3 cm2 LAV(MOD-bp) Indexed: 16.5 ml/m2 LVLd ap4: 7.3 cm LAV(MOD-sp2): 29.9 ml EDV(MOD-sp4): 76.6 ml LAV(MOD-sp4): 34.5 ml EDV(sp4-el): 80.0 ml LVAs ap4: 16.8 cm2 LVLs ap4: 6.4 cm ESV(MOD-sp4): 37.3 ml ESV(sp4-el): 37.4 ml EF(MOD-sp4): 51.3 % EF(sp4-el): 53.3 % LVAd ap2: 29.6 cm2 SV(MOD-sp4): 39.3 ml SV(MOD-sp2): 56.2 ml LVLd ap2: 7.3 cm SI(MOD-sp4): 18.7 ml/m2 SI(MOD-sp2): 26.7 ml/m2 EDV(MOD-sp2): 102.6 ml EDV(sp2-el): 101.2 ml LVAs ap2: 17.8 cm2 LVLs ap2: 5.8 cm ESV(MOD-sp2): 46.5 ml ESV(sp2-el): 46.6 ml EF(MOD-sp2): 54.7 % SV(sp4-el): 42.6 ml Ao sinus diam: 3.[address] Junction: 2.4 cm LA dimension(2D): 4.1 cm LA A4 area: 14.9 cm2 RA A4 area: 15.8 cm2 TAPSE: 1.2 cm Time Measurements MV dec time: 0.21 sec Doppler Measurements & Calculations MV E max lukas: 82.9 cm/sec Lat Peak E' Lukas: 8.0 cm/sec Med Peak E' Lukas: 5.3 cm/sec MV A max lukas: 117.2 cm/sec E/E' lat: 10.4 E/E' med: 15.6 MV E/A: 0.71 MV dec slope: 387.9 cm/sec2 Ao V2 max: 134.3 cm/sec LV V1 max: 112.8 cm/sec Ao max P.2 mmHg LV V1 max P.1 mmHg Ao V2 mean: 93.3 cm/sec LV V1 mean P.8 mmHg Ao mean P.0 mmHg LV V1 mean: 77.1 cm/sec Ao V2 VTI: 24.0 cm LV V1 VTI: 19.4 cm AV (velocity ratio): 0.81 JAVIER(I,D): 2.4 cm2 JAVIER(V,D): 2.5 cm2 SV(LVOT): 56.8 ml PA V2 max: 81.6 cm/sec TR max lukas: 371.9 cm/sec TR max P.3 mmHg ECHO/Echo Complete W/ Contrast Interpretation Summary The estimated ejection fraction is 55 %. Diastolic function is indeterminate. Pulmonary artery systolic pressure is 60 mmHg. Severely dilated right ventricle. Ordering Physician: Sen Gonzales Referring Physician: BRENDON DRISCOLL Performed By: Grace Martinez RDCS
== END | disposition home or self-care (01) ==
LOC: CVS 11:27
PROVIDERS: PCP Nurse Practitioner Family; Referring Provider Internal Medicine Cardiovascular Disease; Visit Provider Internal Medicine Cardiovascular Disease
DX: R06.02 Shortness of breath (principal)
CPT/HCPCS: 93306; Q9957; A4216; C8929

== ENCOUNTER 2024-04-03 12:01 | Emergency (ER) | payer MEDICARE, MEDICAID, SELFPAY ==
[2024-04-03] VITALS (7 sets, daily range): BP systolic 151–193; BP diastolic 88–119; PULSE 76–99; RESP 18–24; TEMP 36.1–36.8; O2SAT 93–97; BMI 47.5
--- NOTE | 2024-04-03 12:21 | EKG12_ITS ---
Test Reason : CP Blood Pressure : */* mmHG Vent. Rate : 80 BPM Atrial Rate : 80 BPM P-R Int : 144 ms QRS Dur : 102 ms QT Int : 400 ms P-R-T Axes : 47 -73 70 degrees QTcB Int : 461 ms Normal sinus rhythm Left anterior fascicular block Minimal voltage criteria for LVH, may be normal variant ( [place] product ) Abnormal ECG Confirmed by CHICHI EDLA CRUZ, VEL ([id number]), electronic news gathering editor PRABHAKAR CASON ([id number]) on 04/05/2024 10:46:55 AM Referred By: PAT/REYNA Confirmed By: VEL CADET MD
--- NOTE | 2024-04-03 12:31 | ED.VIS.CHEST ---
HPI History of Present Illness Chief Complaint: Chest Pain Informant: patient Onset/Context/Timing Onset: Weeks Activity at onset: gradual Timing: Intermittent Quality: Positive for Aching Location: Substernal Current Severity: Mild Maximum Severity: Mild Worsened By: Exertion and Coughing Relieved By: Nothing Associated Symptoms: Positive for Dyspnea and Cough; Negative for Nausea, Vomiting, Diaphoresis, Fever, Lightheadedness, Acid Reflux or Palpitations Narrative Narrative: 53-year-old female history of COPD trying to quit smoking also history of diabetes and prior pulmonary emboli chronically on the blood thinner Eliquis which she states she has been taking. Recently had URI symptoms. Was treated with oral antibiotic, doxycycline,. Today went and saw the nurse practitioner at the pulmonology office. And they were concerned that she was not improving and sent her down to emergency department. Reportedly had a recent chest x-ray and PET scan did not show pneumonia. Prior Similar Symptoms: Yes Recent Illness/Hospitalization: No CVD Risk Factors: Positive for Diabetes PE Risk Factors: Positive for Prior DVT or PE; Negative for Recent Travel/Surgery, Recent Immobilization, Cancer or OCP + Smoking + >/=35 TAD Risk Factors: Negative for Marfan's Syndrome [facility] Medical History Hypertension Moderate chronic obstructive pulmonary disease Chronic hypoxic respiratory failure Bipolar disorder Schizophrenia Depression Diabetes Chronic pain Kidney stones Smoker BiPAP (biphasic positive airway pressure) dependence Pulmonary embolism Morbid obesity with BMI of 50.0-59.9, adult Hypersomnia Pulmonary infarction Bilateral pulmonary embolism Morbid obesity Nicotine dependence, cigarettes, uncomplicated Tobacco abuse Non-healing surgical wound Cellulitis and abscess of neck Upper airway obstruction Bahman's angina Acute respiratory failure Bipolar disorder Anxiety Chronic back pain Home Medications ?Medication ?Instructions ?Recorded ?Last Taken ?Type valacyclovir 1 gram tablet 1,000 mg PO DAILY anti virus 08/12/18 07/29/23 08:00 History 1,000 mg aripiprazole lauroxil 882 mg/3.2 882 mg IM [facility] mental health 09/12/18 07/28/23 History mL suspension, ext.rel. IM syringe cholecalciferol (vitamin D3) 25 5,000 unit PO DAILY vitamin 07/02/20 07/29/23 08:00 History mcg (1,000 unit) tablet 5,000 unit gabapentin 300 mg capsule 300 mg PO TIDCM nerve pain 07/02/20 07/28/23 21:00 History bupropion HCl 300 mg 24 hr tablet, 300 mg PO DAILY mental health 09/04/22 07/29/23 08:00 History extended release 300 mg omeprazole 20 mg tablet,delayed 20 mg PO DAILY reflux 09/04/22 07/29/23 08:00 History release 40 mg acetaminophen 325 mg tablet 650 mg (2 x 325 mg) PO Q4H PRN PRN 09/05/22 07/29/23 08:00 Rx Fever, pain -01/25 #0 tabs 650 mg apixaban 5 mg tablet (Eliquis) 5 mg PO Q12H blood thinner 05/27/23 07/29/23 08:00 History 5 mg diabetic supplies, miscellan. #1 ea 08/02/23 Unknown Rx losartan 25 mg tablet 25 mg PO DAILY #30 tabs 08/02/23 Unknown Rx cetirizine 10 mg tablet 10 mg PO QDAY 10/27/23 Unknown History albuterol sulfate 90 mcg/actuation 1 - 2 puff inhalation Q4H PRN PRN 02/06/24 Unknown Rx aerosol inhaler (Ventolin HFA) Wheezing ##1 budesonide 160 mcg-glycopyr 9 2 inh inhalation BID #3 ea 02/06/24 Unknown Rx mcg-formot 4.8 mcg/actuation HFA inhaler (Breztri Aerosphere) ipratropium 0.5 mg-albuterol 3 mg 3 ml inhalation Q4H PRN PRN SOB 02/06/24 Unknown Rx (2.5 mg base)/3 mL nebulization &/OR WHEEZING #180 mL soln tirzepatide 12.5 mg/0.5 mL mg subcut 02/06/24 Unknown History subcutaneous pen injector (Mounjaro) metformin 1,000 mg tablet 1,000 mg PO BID 03/07/24 Unknown History varenicline tartrate 0.5 mg (11)-1 See Rx Instructions PO PER PKG DIR 03/14/24 Unknown Rx mg (42) tablets in a dose pack #53 tabs (Chantix Starting Month Box) Allergy/AdvReac Type Severity Reaction Status Date / Time prednisone AdvReac Other Verified 04/03/24 12:02 Sulfa (Sulfonamide AdvReac Rash Verified 04/03/24 12:02 Antibiotics) Surgical History History of adenoidectomy History of cholecystectomy Social History Smoking Status: Current every day smoker tobacco type: cigarettes Tobacco: How many years used: 30 second hand exposure: Yes alcohol intake: current alcohol intake frequency: holidays/special occasions only substance use type: does not use ROS ROS ED ROS Narrative URI. Nonproductive cough. Chest pain. Constitutional Constitutional ED: Denies chills or fever(s) Eyes Eyes: Reports none ENT ENT ED: Reports rhinorrhea; Denies ear pain Cardiovascular Cardiovascular: Reports chest pain Respiratory/Chest Respiratory/Chest: Reports cough Gastrointestinal Gastrointestinal: Denies abdominal pain Genitourinary Genitourinary ED: Denies dysuria or hematuria Musculoskeletal Musculoskeletal: Denies arthralgias or back pain Integumentary Denies abscess Neurologic Neurologic: Denies headache(s) Psychiatric Psychiatric: Denies anxiety Endocrine Endocrinology: Denies cold intolerance Hematologic/Lymphatic Hematologic/Lymphatic: Denies lymphadenopathy Allergic/Immunologic Allergic/Immunologic ED: Denies mouth swelling, tongue swelling or urticaria EXAM Physical Exam Narrative Exam Narrative: 53-year-old female vital signs are stable afebrile. Pulse ox 96% on room air no signs hypoxia. H EENT exam pupils round reactive light. Moist weeks membranes. Neck nontender no lymphadenopathy. Lungs clear to auscultation bilaterally. No rales rhonchi or wheezing. Equal symmetrical. Dry cough. Mildly hoarse voice. Heart regular rate and rhythm rate about 80 no murmur. Chest wall ribs nontender. No reproducible pain. Abdomen soft nontender normal bowel sounds no peritoneal signs. Moving all 4 extremities. Equal symmetrical radial pulse. 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 Dorsi plantarflexion intact. Calves are nontender without edema or cords. Neurologically she is awake and alert no focal motor deficits. Back nontender. Clinically looks well. No distress. Const Vital Signs: 04/03/24 12:01 04/03/24 12:21 04/03/24 12:59 Temperature 96.9 F L Temperature Source Temporal Pulse Rate 78 77 Respiratory Rate 22 H 24 H Blood Pressure 190/119 H 193/101 H Blood Pressure Mean 142 131 Pulse Ox 96 97 93 Oxygen Delivery Method Room Air Room Air Room Air 04/03/24 14:00 04/03/24 14:53 04/03/24 16:00 Temperature Temperature Source Pulse Rate 76 98 78 Respiratory Rate 20 H 22 H 18 Blood Pressure 173/101 H 158/92 H 151/107 H Blood Pressure Mean 125 114 121 Pulse Ox 94 95 95 Oxygen Delivery Method Room Air Room Air Room Air 04/03/24 16:44 Temperature 98.2 F Temperature Source Pulse Rate 99 Respiratory Rate 19 H Blood Pressure 176/88 H Blood Pressure Mean 117 Pulse Ox 95 Oxygen Delivery Method Positive well nourished and well developed; Negative for cachectic or unkempt General Appearance ED: well developed and NAD; Negative for unkempt or cachectic Nutritional Appearance: Negative for cachectic HEENT Reports moist mucous membranes normocephalic and atraumatic; Negative for trauma or tenderness Eyes PERRL and EOMs intact bilaterally General Eye ED: Negative for pale conjunctiva or scleral icterus Neck no lymphadenopathy, supple and no JVD General: Negative for tenderness Chest Wall inspection of chest normal and palpation of chest normal Resp normal respiratory effort and clear to auscultation bilaterally Effort and Inspection: Negative for respiratory distress Auscultation: Negative for rales, rhonchi, wheezes or diminished lung sounds Cardio regular rate, regular rhythm, S1 normal heart sound, S2 normal heart sound and no murmurs Rate: Negative for bradycardia or tachycardic Rhythm: Negative for abnormal rhythm Peripheral Pulses: pulses 2+ throughout GI normal to inspection, nondistended, normoactive bowel sounds, soft to palpation, non-tender, non-distended and no masses Back/Spine no CVA tenderness and no thoracic nor lumbar tenderness General Back: Negative for CVA tenderness or other Cervical Spine: Negative for cervical spine tenderness Extremity normal to inspection General Extremety ED: Negative for edema or pulses abnormal General Extremity: Negative for edema or pulses abnormal Neuro oriented x3 and CN's II-XII intact bilaterally Sensorium / Orientation: awake, alert, oriented to person, oriented to place and oriented to time Motor Exam: strength 5/5 throughout Psych mental status grossly normal Appearance: Negative for unkempt Attitude: No agitated Mood & Affect: Negative for depressed, anxious or tearful Skin no rashes or lesions noted and no wounds General Skin Exam: Negative for jaundice or other Rashes: No rashes noted Trauma: Negative for abrasion, laceration or puncture Heart Score History: Slightly/Non-Suspicious ECG: Normal Age: >45 - <65 years Risk Factors: 1 or 2 Risk Factors Troponin: </= Normal Limit Score: 2 MDM MDM MDM Narrative Medical decision making narrative: 53-year-old female recent URI treated doxycycline. Having not reproducible chest pain for 2 to 3 weeks. Reportedly no prior cardiac catheterization or stress test. Unremarkable exam. Will undergo cardiac workup. Repeat exam at 4:38 PM.the patient doing well. No distress. She and I went over all of her test results. Clinically exam is a URI. Allergy was concerned that she had a urinary pneumonia and is not resolved with the initial antibiotics of the cauterant Levaquin. 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 Finish out antibiotic. She has nebulizer inhaler at home. Currently she is not wheezing at home think she needs steroids. She will follow-up with her primary care physician due to the atypical chest pain to see if they want to get set up for an outpatient stress test. She does not need to be admitted for cardiac workup. History & Record Review Discussion w/independent historian: Patient Additional record(s) reviewed:: Prior inpatient record, Prior outpatient record, Prior ED visit and Prior labs Lab Data Attestation: I reviewed the patient's lab results. Lab results narrative: White count 10.4. H&H is 16 and 50. Platelets 3 of 6. Electrolytes show gap 6. BUN 21 creatinine 1.1. Glucose 205. Initial troponin 29-second troponin 31 both normal. Labs: Laboratory Results - last 24 hr 04/03/24 04/03/24 12:14 14:40 WBC 10.4 RBC 5.82 H Hgb 16.2 H Hct 50.7 H MCV 87.1 MCH 27.8 MCHC 32.0 RDW Std Deviation 60.6 H RDW Coeff of Serafin 20.0 H Plt Count 306 MPV 9.8 Immature Gran % (Auto) 0.800 Neut % (Auto) 64.5 Lymph % (Auto) 22.5 [place] % (Auto) 10.2 H Eos % (Auto) 1.2 Baso % (Auto) 0.8 Absolute Neuts (auto) 6.7 Absolute Lymphs (auto) 2.34 Nucleated RBC % 0 Sodium 136 Potassium 4.4 Chloride 108 H Carbon Dioxide 23.0 Anion Gap 6 BUN 21 H Creatinine 1.10 H Estim Creat Clear Calc 72.11 Est GFR (MDRD) Af Amer 67 Est GFR (MDRD) Non-Af 55 L BUN/Creatinine Ratio 19.1 Glucose 205 H Calcium 10.1 Troponin I High Sens 29 31 Radiography Chest X-Ray - ED: 2 View, Read by ED Physician, Read by Radiologist, Heart, Mediastinum, Bony Structures, Chronic Changes and Right Infiltrate Diagnostic Testing: Clinical Impression(s) from Imaging Studies Chest X-Ray 04/03/24 12:33 IMPRESSION: Patchy bibasilar infiltrates worse on the right lung base with blunting of the right costophrenic angle. Electronically Signed: Jaya Johnson MD at 12:44 EST , Chest x-ray, 2 views, interpreted by by myself and radiologist. She was either chronic scar tissue versus pneumonia. Rhythm Strip Rhythm Strip: Sinus Rhythm Rate: 80 Ectopy: None EKG Initial EKG: Attestation: I personally reviewed and interpreted this EKG as follows: Interpretation: Sinus Rhythm and No Acute Injury Pattern Comments: Normal sinus rhythm rate of 80 no acute signs of MT or ischemia. No S1Q3T3. Discharge Plan Triage Chief Complaint: Chest Pain ED Provider: Stefano Chan Dx/Rx/DC Orders Clinical Impression: Pneumonia, History of COPD Instructions: ED Chest Pain, Uncertain Cause, ED Pneumonia (Adult) Prescriptions: No Action cetirizine 10 mg tablet 10 mg PO QDAY Mounjaro 12.5 mg/0.5 mL pen injector subcut albuterol sulfate [Ventolin HFA] 90 mcg/actuation HFA aerosol inhaler 1 - 2 puff inhalation Q4H PRN PRN (Reason: Wheezing) Qty: 1 0RF Breztri Aerosphere 160-9-4.8 mcg/actuation HFA aerosol inhaler 2 inh inhalation BID Qty: 3 3RF ipratropium-albuterol 0.5 mg-3 mg(2.5 mg base)/3 mL solution for nebulization 3 ml inhalation Q4H PRN PRN (Reason: SOB &/OR WHEEZING) Qty: 180 6RF metformin 1,000 mg tablet 1,000 mg PO BID varenicline tartrate [Chantix Starting Month Box] 0.5 mg (11)- 1 mg (42) tablets,dose pack See Rx Instructions PO PER PKG DIR Qty: 53 0RF Rx Instructions: PO PER PKG DIR valacyclovir 1,000 MG tablet 1,000 mg PO DAILY aripiprazole lauroxil 882 MG/3.2 ML suspension,extended rel syring 882 mg IM QMONTH gabapentin 300 MG capsule 300 mg PO TIDCM cholecalciferol (vitamin D3) 1,000 UNIT tablet 5,000 unit PO DAILY omeprazole 20 mg Tablet,Delayed Release (Dr/Ec) 20 mg PO DAILY bupropion HCl 300 mg tablet extended release 24 hr 300 mg PO DAILY acetaminophen 325 mg Tablet 650 mg PO Q4H PRN PRN (Reason: Fever, pain 1-01/25) Qty: 0 0RF Eliquis 5 mg tablet 5 mg PO Q12H losartan 25 mg Tablet 25 mg PO DAILY Qty: 30 0RF (DME) diabetic supplies, miscellan. Misc See Rx Instructions .Route Qty: 1 0RF Rx Instructions: As directed Primary Care Provider: Meera Canada NP Referrals: Meera Canada NP, BEH[employer]IOR[employer]ENCES DEPARTMENT CHAIR-C [Primary Care Provider] - As soon as possible Activity Restrictions/Additional Instructions: Follow-up your primary care physician. They can get you set up an outpatient stress test. 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 Follow-up to ensure you are improving. Okay to use your inhaler or nebulizer at home. This should progressively improve and you should not need any further antibiotics after this. Print Language: Georgian Disposition Disposition: Home, Self Care
[2024-04-03 12:32] LABS: Absolute Lymphocyte Count 2.34 X10^3/uL (0.83-4.51); Absolute Neutrophil Count 6.7 X10^3/uL (2.0-7.7); Basophil# 0.08 X10^3/uL; Basophil% 0.8 % (0-1); Eosinophil# 0.13 X10^3/uL; Eosinophils% 1.2 % (0-5); Hematocrit 50.7 % (37-47); Hemoglobin 16.2 g/dL (12.0-15.0); Lymphocyte # 2.34 X10^3/ul (0.83-4.51); Lymphocyte % 22.5 % (19-41); Mean Corpuscular Hgb 27.8 pg (27.0-32.0); Mean Corpuscular Volume 87.1 fL (81-99); Mean Platelet Vol. 9.8 fl (6.2-12.0); Monocyte# 1.06 X10^3/uL; Monocyte% 10.2 % (0-10); NRBC Flagged by Analyzer 0 % (0-5); Neutrophil # 6.73 X10^3/uL (2.7-7.7); Neutrophil % 64.5 % (47-70); Platelet Count 306 K/mm3 (150-450); RBC Distribution Width SD 60.6 fl (35.1-43.9); Red Blood Count 5.82 M/mm3 (4.2-5.4); White Blood Count 10.4 K/mm3 (4.4-11.0)
--- NOTE | 2024-04-03 12:33 | RAD_ITS ---
STUDY: X-RAY CHEST REASON FOR EXAM: Female, 53 years old. Chest pain TECHNIQUE: PA and lateral views of the chest. COMPARISON: Comparison is made with prior study dated July 29, 2023. FINDINGS: EKG electrodes are seen. Patchy bibasilar pulmonary infiltrates worse on the right side. Blunting of the right costophrenic angle. Normal size heart. Normal mediastinum and rogerio. Normal visualized pulmonary arteries. Normal visualized aortic arch and descending thoracic aorta. There are degenerative changes of the visualized thoracic spine. Normal visualized ribs, clavicles, and shoulders. There is no demonstrated abnormality of the visualized soft tissue structures of the upper abdomen. RAD/Chest PA and Lateral IMPRESSION: Patchy bibasilar infiltrates worse on the right lung base with blunting of the right costophrenic angle. Electronically Signed: Jaya Johnson MD at 12:44 EST ,
[2024-04-03 12:50] LABS: Anion Gap 6 (5-15); BUN 21 mg/dL (7-18); BUN/Creat Ratio 19.1 RATIO (10-20); Calcium,Total 10.1 mg/dL (8.5-10.1); Chloride 108 mmol/L (98-107); EST Glomerular Filtration Rate 55 mL/min (>60); Est Glom Filt Rate - Afr Amer 67 mL/min (>60); Estimated Creatinine Clearance 72.11 ml/min; Glucose 205 mg/dL (74-106); Potassium 4.4 mmol/L (3.5-5.1); Sodium Level 136 mmol/L (136-145); Troponin-I HS (w/2H Reflex) 29 pg/mL (3.0-54.0)
[2024-04-03 14:25] LABS: Reflex Troponin-HS? (from REC) Y
[2024-04-03 15:07] LABS: Troponin-I HS 31 pg/mL (3.0-54.0)
[2024-04-03] MEDS: levoFLOXacin 750 MG Tablet PO (16:47)
== END 2024-04-03 16:49 | disposition home or self-care (01) ==
PROVIDERS: Emergency Provider Emergency Medicine; PCP Nurse Practitioner Family; Visit Provider Emergency Medicine
DX: J18.9 Pneumonia, unspecified organism (principal); J44.9 Chronic obstructive pulmonary disease, unspecified; E11.9 Type 2 diabetes mellitus without complications; F17.210 Nicotine dependence, cigarettes, uncomplicated; Z86.711 Personal history of pulmonary embolism
CPT/HCPCS: 71046; 80048; 84484; 85025; 93005; 99283; A4216

== ENCOUNTER → 2024-04-10 | Outpatient (CLI) | payer MEDICARE, MEDICAID, SELFPAY | END | disposition home or self-care (01) | PROVIDERS: PCP Nurse Practitioner Family; Referring Provider Nurse Practitioner Family; Visit Provider Nurse Practitioner Family | DX: G47.33 Obstructive sleep apnea (adult) (pediatric) (principal) | CPT/HCPCS: 98960; G0463 ==

== ENCOUNTER → 2024-05-14 | Outpatient (CLI) | payer MEDICARE, MEDICAID, SELFPAY ==
[2024-05-14 10:25] LABS: Anion Gap 9 (5-15); BUN 25 mg/dL (7-18); BUN/Creat Ratio 17.7 RATIO (10-20); Calcium,Total 10.4 mg/dL (8.5-10.1); Chloride 104 mmol/L (98-107); Creatinine, Serum 1.41 mg/dL (0.55-1.02); EST Glomerular Filtration Rate 41 mL/min (>60); Est Glom Filt Rate - Afr Amer 50 mL/min (>60); Glucose 365 mg/dL (74-106); Sodium Level 135 mmol/L (136-145)
== END | disposition home or self-care (01) ==
PROVIDERS: PCP Nurse Practitioner Family; Referring Provider Internal Medicine Cardiovascular Disease; Visit Provider Internal Medicine Cardiovascular Disease
DX: I10 Essential (primary) hypertension (principal)
CPT/HCPCS: 36415; 80048

== ENCOUNTER → 2024-07-02 | Outpatient (CLI) | payer MEDICARE, MEDICAID, SELFPAY ==
--- NOTE | 2024-07-02 13:03 | CT_ITS ---
PROCEDURE: CHEST WITHOUT CONTRAST 07/02/2024 REASON FOR EXAM: MULTIPLE NODULES IN HIGH RISK PATIENT TECHNIQUE: CT chest was performed without IV contrast. Multiplanar reformats were generated. One or more dose reduction techniques were used (e.g., Automated exposure control, adjustment of the mA and/or kV according to patient size, use of iterative reconstruction technique COMPARISON: 03/09/2024. RADIATION DOSE SUMMARY: CTDlvol: 21.71 mGy DLP: 630.5 mGycm FINDINGS: Note that evaluation of the vasculature, rogerio, and soft tissues is limited in the absence of IV contrast. Heart/pericardium: Unremarkable. Aorta: Unremarkable. Pulmonary arteries: Normal in caliber. Lymph nodes: Unremarkable. Lungs/pleura: Slightly decreased size of the irregular subpleural subsolid but nearly solid nodule or nodular consolidation, now 2.6 x 2.1 cm, previously 3.5 x 2.2 cm (series 4, image 86). Grossly similar to slightly improved mild irregular nodular consolidation slightly more anteriorly within the nearby right lower lobe. Irregular nodular opacity in the anterior right lung apex measures 7 x 9 mm, previously 11 x 7 mm (image 26). Similar 4 mm left upper lobe nodule (image 29). Similar cystic lesion in the left lower lobe measuring 2.1 x 3.4 cm with mild wall thickening and am mural nodule measuring 1.7 x 0.9 cm (images 68 and 70). Additional similar appearing posterior subpleural cystic lesion with mural nodule more inferiorly is difficult to measure but also essentially unchanged, roughly 1.9 x 1.0 cm (image 76). Similar trace subpleural ground-glass in the posterolateral right lung apex. Dependent atelectasis/scarring. Airways: Unremarkable. Chest wall: Unremarkable. Upper abdomen: Distended stomach.. Musculoskeletal: Demineralization. Multilevel spondylosis. Degenerative changes of the left shoulder. Similar old right lateral and left posterior rib fracture inferiorly. CT/Chest without Contrast IMPRESSION: 1. Slight decrease in the size of a now 2.6 cm subsolid but nearly solid irregu lar subpleural nodule in the right lower lobe and a now 9 mm nodule in the right lung apex, otherwise essentially unchanged multi focal nodules and atypical cysts with mural nodules, up to 3.4 cm in the left lower lobe. Note that primary lung neoplasm may present as and atypical pulmonary cyst. These remain suspicious for neoplasm and tissue sampling of at least the larger lesio ns versus PET/CT should be considered. 2. Additional description as above. Reading Location: [id number]
== END | disposition home or self-care (01) ==
LOC: CT 13:01
PROVIDERS: PCP Nurse Practitioner Family; Referring Provider Nurse Practitioner Family; Visit Provider Nurse Practitioner Family
DX: R91.8 Other nonspecific abnormal finding of lung field (principal)
CPT/HCPCS: 71250

== ENCOUNTER → 2024-08-10 | Outpatient (CLI) | payer MEDICARE, MEDICAID, SELFPAY ==
[2024-08-10 11:07] LABS: Platelet Count 374 K/mm3 (150-450)
[2024-08-10 11:19] LABS: International Normalized Ratio 1.2; Partial Thromboplast Time 27.4 Seconds (24.1-36.2); Prothrombin Time (Protime)PT. 15.1 SECONDS (11.7-14.9)
[2024-08-10 11:22] LABS: D-Dimer Quantitative (DVT/PE) 1.52 FEU/ug/m (0.27-0.49)
[2024-08-10 11:31] LABS: Microalbumin:Creatinine Ratio 926.2 mg/g CRE
[2024-08-10 12:26] LABS: PTHIN 82 pg/mL (11-61)
[2024-08-10 12:44] LABS: ALB/GLOB Ratio 1.2 RATIO (0.9-2.4); AST(SGOT) 26 U/L (<=31); Alanine Aminotransfer ALT/SGPT 28 U/L (<=34); Alkaline Phosphatase 237 U/L (35-104); Anion Gap 16 (5-15); BUN 36 mg/dL (4-19); BUN/Creat Ratio 25.7 RATIO (10-20); Carbon Dioxide 18.3 mmol/L (21.0-32.0); Chloride 106 mmol/L (98-108); Cholesterol 128 mg/dL (<=200); Creatinine, Serum 1.38 mg/dL (0.70-1.20); EST Glomerular Filtration Rate 46 (>60); Globulin 3.3 g/dL (2.2-4.2); Glucose 116 mg/dL (70-99); High Density Lipoprotein 31 mg/dL; Low Density Lipoprotein Calc. 67 mg/dL; Potassium 5.1 mmol/L (3.3-5.1); Protein, Total 7.3 g/dL (5.9-8.4); Sodium Level 140 mmol/L (133-145); Total Bilirubin 0.53 mg/dL (0.00-1.30); Triglycerides 152 mg/dL; Very Low Density Lipoprotein 30 mg/dL (5-40); Vitamin D,25 Hydroxy 53.3 ng/mL (30-100); cholesterol:hdl ratio screen 4.14
== END | disposition home or self-care (01) ==
PROVIDERS: Nurse Practitioner Family; PCP Nurse Practitioner Family; Referring Provider Nurse Practitioner Family; Visit Provider Nurse Practitioner Family
DX: I26.99 Other pulmonary embolism without acute cor pulmonale (principal); E11.65 Type 2 diabetes mellitus with hyperglycemia; E11.22 Type 2 diabetes mellitus with diabetic chronic kidney disease; N18.32 Chronic kidney disease, stage 3b
CPT/HCPCS: 36415; 80053; 80061; 82043; 82306; 82570; 83970; 84443; 85049; 85379; 85610; 85730

== ENCOUNTER → 2024-10-23 | Outpatient (CLI) | payer MEDICARE, MEDICAID, SELFPAY ==
--- NOTE | 2024-10-23 11:34 | RAD_ITS ---
EXAM: XR Abdomen, 1 View CLINICAL INDICATION: CONSTIPATION TECHNIQUE: Frontal supine view of the abdomen/pelvis. COMPARISON: No relevant prior studies available. FINDINGS: GASTROINTESTINAL TRACT: Fecal retention in the colon consistent with constipation. No dilation. BONES/JOINTS: Unremarkable. No acute fracture. RAD/Abdomen Single View IMPRESSION: Fecal retention in the colon consistent with constipation. Reading Location: [facility]
== END | disposition home or self-care (01) ==
LOC: LAB 11:19 → RAD 11:20
PROVIDERS: PCP Internal Medicine
DX: K59.00 Constipation, unspecified (principal); R19.7 Diarrhea, unspecified; R15.9 Full incontinence of feces
CPT/HCPCS: 74018

== ENCOUNTER 2024-11-02 16:51 | Emergency (ER) | payer MEDICARE, MEDICAID, SELFPAY ==
[2024-11-02 16:52] VITALS: BP 160/112; PULSE 86; RESP 16; TEMP 35.7; O2SAT 95; BMI 46.0
--- NOTE | 2024-11-02 17:13 | ED.VIS.GI ---
HPI HPI - GI History of Present Illness Chief Complaint: Constipation Detail of Chief Complaint: Constipation Informant: patient Narrative Narrative: Patient presents to the emergency department with complaint of constipation it has been going on for couple months. Initially states that she was passing some hard patti but now passing only liquid. Patient really denies any change in medications but states she changed her diet about a year ago when she was diagnosed as diabetic and diminished her carbohydrate intake. 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 Occasionally has some abdominal cramping. She scheduled for a colonoscopy next month. She has never had a colonoscopy. She denies any blood in her stool. She denies fever. She is currently on Eliquis for history of PEs. [facility] Medical History Bilateral pulmonary embolism Fibromyalgia Palpitations Hypertension Moderate chronic obstructive pulmonary disease Chronic hypoxic respiratory failure Bipolar disorder Schizophrenia Depression Diabetes Chronic pain Smoker BiPAP (biphasic positive airway pressure) dependence Pulmonary embolism Morbid obesity with BMI of 50.0-59.9, adult Hypersomnia Pulmonary infarction Morbid obesity Nicotine dependence, cigarettes, uncomplicated Tobacco abuse Non-healing surgical wound Cellulitis and abscess of neck Upper airway obstruction Bahman's angina Acute respiratory failure Bipolar disorder Anxiety Chronic back pain Home Medications ?Medication ?Instructions ?Recorded ?Last Taken ?Type valacyclovir 1 gram tablet 1,000 mg PO DAILY anti virus 08/12/18 07/29/23 08:00 History 1,000 mg aripiprazole lauroxil 882 mg/3.2 882 mg IM [facility] health 09/12/18 07/28/23 History mL suspension, ext.rel. IM syringe gabapentin 300 mg capsule 300 mg PO TIDCM nerve pain 07/02/20 07/28/23 21:00 History bupropion HCl 300 mg 24 hr tablet, 300 mg PO DAILY mental health 09/04/22 07/29/23 08:00 History extended release 300 mg omeprazole 20 mg tablet,delayed 20 mg PO DAILY reflux 09/04/22 07/29/23 08:00 History release 40 mg acetaminophen 325 mg tablet 650 mg (2 x 325 mg) PO Q4H PRN PRN 09/05/22 07/29/23 08:00 Rx Fever, pain #0 tabs 650 mg apixaban 5 mg tablet (Eliquis) 5 mg PO Q12H blood thinner 05/27/23 07/29/23 08:00 History 5 mg diabetic supplies, miscellan. #1 ea 08/02/23 Unknown Rx cetirizine 10 mg tablet 10 mg PO QDAY 10/27/23 Unknown History budesonide 160 mcg-glycopyr 9 2 inh inhalation BID #3 ea 02/06/24 Unknown Rx mcg-formot 4.8 mcg/actuation HFA inhaler (Breztri Aerosphere) ipratropium 0.5 mg-albuterol 3 mg 3 ml inhalation Q4H PRN PRN SOB 02/06/24 Unknown Rx (2.5 mg base)/3 mL nebulization &/OR WHEEZING #180 mL soln metformin 1,000 mg tablet 1,000 mg PO BID 03/07/24 Unknown History amlodipine 10 mg tablet 10 mg PO QDAY #30 tabs 04/30/24 Unknown Rx lisinopril 20 mg tablet 20 mg PO BID #60 tabs 04/30/24 Unknown Rx glimepiride 2 mg tablet 2 mg PO BID #60 tabs 07/23/24 Unknown Rx blood sugar diagnostic (OneTouch #100 ea 08/08/24 Unknown Rx Verio test strips) cholecalciferol (vitamin D3) 25 25 mcg PO QDAY 09/05/24 Unknown History mcg (1,000 unit) capsule cyclobenzaprine 10 mg tablet 10 mg PO TID PRN pain #30 tabs 09/24/24 Unknown Rx leg brace (PADMINI Ankle Brace) #2 ea 09/24/24 Unknown Rx leg brace (PADMINI Knee Brace) #2 ea 09/24/24 Unknown Rx blood-glucose sensor (FreeStyle #2 ea 10/24/[address] K[address] Plus Sensor device) empagliflozin 25 mg tablet 25 mg PO QAM #30 tabs 10/24/24 Unknown Rx (Jardiance) semaglutide 0.25 mg or 0.5 mg (2 0.25 mg (0.368 mL) subcut QWEEK #3 10/24/24 Unknown Rx mg/3 mL) subcutaneous pen injector mL (Ozempic) albuterol sulfate 90 mcg/actuation 1 - 2 puff inhalation Q4H PRN PRN 10/29/24 Unknown Rx aerosol inhaler (Ventolin HFA) Wheezing ##1 Allergy/AdvReac Type Severity Reaction Status Date / Time prednisone AdvReac Other Verified 11/02/24 16:52 Sulfa (Sulfonamide AdvReac Rash Verified 11/02/24 16:52 Antibiotics) Family History Other Adopted Surgical History History of mandibular surgery History of adenoidectomy History of cholecystectomy Social History household members: none current occupational status: disabled 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 Smoking Status: Current every day smoker tobacco type: cigarettes second hand exposure: Yes quit status: not considering quitting alcohol intake: never substance use type: does not use frequency: 3-4 times per week do you feel safe at home: Yes ROS ROS ED Review of Systems ROS Unobtainable: other Constitutional Constitutional ED: Reports lethargy; Denies chills, fever(s), sweats or weight loss Eyes Eyes: Denies blurry vision, change in vision or diplopia ENT ENT ED: Denies rhinorrhea or sore throat Cardiovascular Cardiovascular: Denies chest pain, orthopnea or racing heartbeat Respiratory/Chest Respiratory/Chest: Denies cough, dyspnea, dyspnea on exertion, orthopnea or sputum Gastrointestinal Gastrointestinal: Reports abdominal pain and constipation; Denies diarrhea, nausea or vomiting Genitourinary Genitourinary ED: Denies dysuria, hematuria or urinary frequency Musculoskeletal Musculoskeletal: Denies arthralgias, back pain, myalgias or neck pain Integumentary Denies abscess, Abrasions or rash Neurologic Neurologic: Denies headache(s) or weakness Psychiatric Psychiatric: Denies anxiety, depression or suicidal thoughts Endocrine Endocrinology: Denies polydipsia, polyphagia or polyuria Hematologic/Lymphatic Hematologic/Lymphatic: Denies easy bleeding, easy bruising or lymphadenopathy Allergic/Immunologic Allergic/Immunologic ED: Denies mouth swelling, tongue swelling or urticaria EXAM Physical Exam Const Vital Signs: 11/02/24 16:52 Temperature 96.3 F L Temperature Source Temporal Pulse Rate 86 Respiratory Rate 16 Blood Pressure 160/112 H Blood Pressure Mean 128 Pulse Ox 95 Oxygen Delivery Method Room Air Positive well nourished and well developed General Appearance ED: well developed and NAD HEENT Reports TM's clear and moist mucous membranes normocephalic and atraumatic; Negative for trauma or tenderness Tympanic Membrane ED: Yes TM's clear Eyes PERRL and EOMs intact bilaterally General Eye ED: Negative for pale conjunctiva or scleral icterus Neck no lymphadenopathy, supple and no JVD General: Negative for tenderness Chest Wall inspection of chest normal and palpation of chest normal Chest: Negative for tenderness Resp normal respiratory effort and clear to auscultation bilaterally Effort and Inspection: Negative for respiratory distress or pain with movement Auscultation: Negative for rhonchi, wheezes or diminished lung sounds Cardio regular rate, regular rhythm, S1 normal heart sound, S2 normal heart sound and no murmurs Peripheral Pulses: pulses 2+ throughout GI normal to inspection, nondistended, normoactive bowel sounds, soft to palpation, non-distended and no masses GI Narrative: Morbidly obese abdomen. No tenderness on exam. No masses palpated however exam difficult. Rectal exam performed and patient had no stool in the rectal vault. No masses palpated in the rectal vault. Back/Spine no CVA tenderness and no thoracic nor lumbar tenderness Extremity normal to inspection General Extremety ED: Negative for edema General Extremity: Negative for edema Neuro oriented x3, CN's II-XII intact bilaterally, no sensory deficits noted and gait normal Sensorium / Orientation: awake, alert, oriented to person, oriented to place and oriented to time Motor Exam: strength 5/5 throughout and strength abnormal Psych mental status grossly normal Skin no rashes or lesions noted and no wounds MDM MDM MDM Narrative Medical decision making narrative: Patient presents with complaint of constipation and only passing watery stool. She has taken magnesium citrate and tried other [id number] remedies without success. She states she really has not had a good bowel movement in months. She is scheduled to have a colonoscopy next month. Clinically she looks well and her abdomen is benign. I did do a rectal exam which showed no stool in the rectal vault. IV line established. CBC with differential obtained showed white count 10.0 with hemoglobin 16.1 and plate count 293. Chemistries were unremarkable. BUN was 25 and creatinine 1.36. LFTs were normal. CT scan of the abdomen pelvis showed no acute disease process. I offered her a soapsuds enema to which she agreed. She did have some results but mostly watery type stool with no significant solids however she felt much improved. Recommended she use MiraLAX and follow-up with her dry wall plasterer for colonoscopy as instructed. Lab Data Attestation: I reviewed the patient's lab results. Labs: Laboratory Results - last 24 hr 11/02/24 17:19 WBC 10.0 RBC 6.02 H Hgb 16.1 H Hct 51.6 H MCV 85.7 MCH 26.7 L MCHC 31.2 L RDW Std Deviation 55.8 H RDW Coeff of Serafin 19.1 H Plt Count 293 MPV 9.4 Immature Gran % (Auto) 0.400 Neut % (Auto) 55.8 Lymph % (Auto) 29.3 [place] % (Auto) 12.4 H Eos % (Auto) 1.1 Baso % (Auto) 1.0 Absolute Neuts (auto) 5.6 Absolute Lymphs (auto) 2.92 Nucleated RBC % 0 Sodium 139 Potassium 4.6 Chloride 103 Carbon Dioxide 20.0 L Anion Gap 17 H BUN 25 H Creatinine 1.30 H Estim Creat Clear Calc 59.18 Est GFR (MDRD) Non-Af 49 L BUN/Creatinine Ratio 19.5 Glucose 109 H Lactic Acid 2.5 H* Calcium 10.7 Total Bilirubin 0.97 AST 26 ALT 29 Alkaline Phosphatase 245 H Total Protein 8.1 Albumin 4.5 Globulin 3.6 Albumin/Globulin Ratio 1.3 Radiography Diagnostic Testing: Clinical Impression(s) from Imaging Studies Abdomen/Pelvis CT 11/02/24 18:31 IMPRESSION: No acute abnormality. No obstruction or impaction. Reading [facility] Dis[facility] Triage Chief Complaint: Constipation ED Provider: Aundrea Espinoza Dx/Rx/DC Orders Clinical Impression: Constipation Instructions: ED Constipation (Adult) Prescriptions: No Action cetirizine 10 mg tablet 10 mg PO QDAY Breztri Aerosphere 160-9-4.8 mcg/actuation HFA aerosol inhaler 2 inh inhalation BID Qty: 3 3RF ipratropium-albuterol 0.5 mg-3 mg(2.5 mg base)/3 mL solution for nebulization 3 ml inhalation Q4H PRN PRN (Reason: SOB &/OR WHEEZING) Qty: 180 6RF metformin 1,000 mg tablet 1,000 mg PO BID glimepiride 2 mg tablet 2 mg PO BID Qty: 60 5RF Ozempic 0.25 mg or 0.5 mg (2 mg/3 mL) pen injector 0.25 mg subcut QWEEK Qty: 3 4RF (DME) FreeStyle Km 3 Plus Sensor Device See Rx Instructions .Route Qty: 2 5RF Rx Instructions: 1 sensor q 15 days Jardiance 25 mg tablet 25 mg PO QAM Qty: 30 5RF cholecalciferol (vitamin D3) 25 mcg (1,000 unit) capsule 25 mcg PO QDAY cyclobenzaprine 10 mg tablet 10 mg PO TID PRN (Reason: pain) Qty: 30 0RF (DME) PADMINI Ankle Brace Misc See Rx Instructions .Route Qty: 2 0RF Rx Instructions: As directed (DME) PADMINI Knee Brace Misc See Rx Instructions .Route Qty: 2 0RF Rx Instructions: As directed valacyclovir 1,000 MG tablet 1,000 mg PO DAILY aripiprazole lauroxil 882 MG/3.2 ML suspension,extended rel syring 882 mg IM QMONTH gabapentin 300 MG capsule 300 mg PO TIDCM omeprazole 20 mg Tablet,Delayed Release (Dr/Ec) 20 mg PO DAILY bupropion HCl 300 mg tablet extended release 24 hr 300 mg PO DAILY acetaminophen 325 mg Tablet 650 mg PO Q4H PRN PRN (Reason: Fever, pain 1-01/25) Qty: 0 0RF Eliquis 5 mg tablet 5 mg PO Q12H (DME) diabetic supplies, miscellan. Misc See Rx Instructions .Route Qty: 1 0RF Rx Instructions: As directed amlodipine 10 mg tablet 10 mg PO QDAY Qty: 30 11RF lisinopril 20 mg tablet 20 mg PO BID Qty: 60 11RF (DME) OneTouch Verio test strips Strip See Rx Instructions .Route Qty: 100 5RF Rx Instructions: TID albuterol sulfate [Ventolin HFA] 90 mcg/actuation HFA aerosol inhaler 1 - 2 puff inhalation Q4H PRN PRN (Reason: Wheezing) Qty: 1 0RF Primary Care Provider: Candy Ortiz Referrals: Candy Ortiz MD [Primary Care Provider] - 3-5 Days Activity Restrictions/Additional Instructions: Keep your appointment to have colonoscopy. You may use MiraLAX to keep stools soft daily. Print Language: Surinamese Disposition Disposition: Home, Self Care
[2024-11-02 17:26] LABS: Hematocrit 51.6 % (37-47); Hemoglobin 16.1 g/dL (12.0-15.0); Immature Granulocytes Count 0.040 X10^3/uL (0.0-0.0); Mean Corp Hgb Conc 31.2 g/dL (32-36); Mean Corpuscular Volume 85.7 fL (81-99); Mean Platelet Vol. 9.4 fl (6.2-12.0); NRBC Flagged by Analyzer 0 % (0-5); Platelet Count 293 K/mm3 (150-450); RBC Distribution Width CV 19.1 % (11.6-14.6); RBC Distribution Width SD 55.8 fl (35.1-43.9); Red Blood Count 6.02 M/mm3 (4.2-5.4); White Blood Count 10.0 K/mm3 (4.4-11.0)
[2024-11-02 18:17] LABS: AST(SGOT) 26 U/L (<=31); Alanine Aminotransfer ALT/SGPT 29 U/L (<=34); Albumin, Serum 4.5 g/dL (3.5-5.0); Alkaline Phosphatase 245 U/L (35-104); Anion Gap 17 (5-15); BUN 25 mg/dL (4-19); BUN/Creat Ratio 19.5 RATIO (10-20); Calcium,Total 10.7 mg/dL (7.6-11.0); Carbon Dioxide 20.0 mmol/L (21.0-32.0); Chloride 103 mmol/L (98-108); Estimated Creatinine Clearance 59.18 ml/min (50-250); Globulin 3.6 g/dL (2.2-4.2); Glucose 109 mg/dL (70-99); Potassium 4.6 mmol/L (3.3-5.1)
--- NOTE | 2024-11-02 18:31 | CT_ITS ---
PROCEDURE: ABDOMEN/PELVIS W IV CONT ONLY 11/02/2024 REASON FOR EXAM: ABDOMINAL PAIN, CONSTIPATION TECHNIQUE: ABDOMEN/PELVIS W IV CONT ONLY Coronal and Sagittal reconstruction series were provided. CONTRAST: Not indicated One or more dose reduction techniques were used (e.g., Automated exposure control, adjustment of the mA and/or kV according to patient size, use of iterative reconstruction technique. RADIATION DOSE SUMMARY: CTDlvol: 37 mGy DLP: 1244 mGycm FINDINGS: Normal appearance to the liver. Normal portal vein. Normal spleen. Normal adrenal glands. Left renal cyst is present. No renal calculi. No hydronephrosis. No pancreatic mass or inflammation. Gallbladder appears to be surgically absent. No free-fluid in the abdomen or pelvis. There is an IUD within the uterus. There is no obstruction of the large bowel or the small bowel. No colonic wall thickening. Negative for small bowel dilatation. No positive findings of appendicitis or inflammatory changes. Normal bladder contour. Negative for visible adenopathy. Normal lumbar alignment and vertebral body height. CT/Abdomen/Pelvis W IV Cont ONLY IMPRESSION: No acute abnormality. No obstruction or impaction. Reading [facility]
[2024-11-02 20:17] VITALS: BP 139/78; PULSE 94; RESP 16; TEMP 36.9; O2SAT 100
[2024-11-02 21:23] LABS: Reflex Lactate? Y
== END 2024-11-02 20:17 | disposition home or self-care (01) ==
PROVIDERS: Emergency Provider Emergency Medicine; PCP Internal Medicine; Visit Provider Emergency Medicine
DX: K59.00 Constipation, unspecified (principal); F31.9 Bipolar disorder, unspecified; J44.9 Chronic obstructive pulmonary disease, unspecified; E11.9 Type 2 diabetes mellitus without complications; F17.210 Nicotine dependence, cigarettes, uncomplicated; Z79.01 Long term (current) use of anticoagulants; Z86.711 Personal history of pulmonary embolism
CPT/HCPCS: 74177; 80053; 83605; 85025; 99285; Q9967; A4216

== ENCOUNTER → 2024-11-02 | Outpatient (CLI) | payer MEDICARE, MEDICAID, SELFPAY ==
--- NOTE | 2024-11-02 16:42 | CT_ITS ---
PROCEDURE: CHEST WITHOUT CONTRAST 11/02/2024 REASON FOR EXAM: MULTIPLE LUNG NODULES, CURRENT SMOKER TECHNIQUE: Chest CT without contrast. Coronal and Sagittal reconstruction series were provided. One or more dose reduction techniques were used (e.g., Automated exposure control, adjustment of the mA and/or kV according to patient size, use of iterative reconstruction technique RADIATION DOSE SUMMARY: CTDlvol: 18.2 mGy DLP: 628.1 mGycm COMPARISON: CT scan of the chest dated 07/02/2024 FINDINGS: Due to the absence of IV contrast, evaluation of the vasculature, hilar structures, and soft tissues is limited. Lymph nodes: Unremarkable. Heart and Vasculature: Heart size and configuration are within normal limits. Pulmonary vasculature is unremarkable. Coronary Artery Calcifications: None. Lungs and Airways: There is an increase in size of the irregular subpleural nodule or nodular consolidation in the right lung now measuring 5.8 x 1.6 cm. Previously it measured 2.6 x 2.1 cm. Image 79. The irregular nodular opacity in the anterior right lung apex is smaller on today's exam measuring 3 x 3 mm. Previously it measured 7 x 9 mm. Image 26 There is a similar 3 mm nodule in the left upper lobe. Image 26. There is a cystic lesion with a mural nodule in the left lower lobe which appears slightly smaller on today's study measuring 3.0 x 1.8 cm. This nodule previously measured 3.4 x 2.1 cm. Image 68. There is a cystic lesion with a mural nodule more inferior within the left lower lobe which is slightly smaller on today's study measuring 14 x 6 mm. The nodule previously measured 19 x 10 mm. Image 74. There is a similar 6 x 8 mm nodule in the left lung inferiorly. Image 56. There is a similar subpleural ground-glass appearance in the posterior lateral right lung apex. There is also some stable dependent atelectasis and scarring. Upper Abdomen: The visualized portions of the liver, spleen, adrenal glands, and left kidney are unremarkable. Bones: Diffuse osteopenia of the bony thorax is noted. Degenerative changes of the lumbar spine are noted. CT/Chest without Contrast IMPRESSION: The pulmonary nodules in both lungs appears slightly smaller when compared to t he prior examination with the exception that the subpleural nodule or nodular consolidation in the right lung on image number 79 is slightly larger. The findings may represent neoplasm. PET-CT is recommended if this has not already been performed. Biops y may also be warranted in order to establish a tissue diagnosis if this has not already been performed. Reading Location: [id number]
== END | disposition home or self-care (01) ==
LOC: CT 16:41
PROVIDERS: PCP Internal Medicine; Referring Provider Nurse Practitioner Family; Visit Provider Nurse Practitioner Family
DX: R91.8 Other nonspecific abnormal finding of lung field (principal)
CPT/HCPCS: 71250

== ENCOUNTER 2024-11-21 07:14 | Day surgery (SDC) | payer MEDICARE, MEDICAID, SELFPAY ==
--- NOTE | 2024-11-16 13:11 | PAT.ANE_ITS ---
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 When Was Last Pacemaker Check QUESTION #4 FULL TEXT: You/Your Family Experience fever (hyperthermia) with Anesthesia Last Oral Intake Last Oral intake: Last Oral Intake NPO since Meds taken in AM with sips of water? Meds patient instructed to take am of surgery PONV PONV - gas appliance repairer: PONV - gas appliance repairer Female Yes 11/16/24 10:54 HX of Motion Sickness No 11/16/24 10:54 HX of N/V After Surgery No 11/16/24 10:54 Non-Smoker No 11/16/24 10:54 Duration of Surgery greater No 11/16/24 10:54
--- NOTE | 2024-11-16 13:11 | PAT.ANESEVAL ---
Pre-Assessment Diagnosis/Proposed Procedure Planned Operative Procedure(s): COLONOSCOPY Anesthesia History Anesthesia History - manager sql: Anesthesia History - manager sql Hx Hospitalization No 11/16/24 10:54 Any Problems With Anesthesia No 11/16/24 10:54 Cholinesterase deficiency No 11/16/24 10:54 You/Your Family Experience Yes: ADOPTED 11/16/24 10:54 fever (hyperthermia) with Relationship Recent Exposure to Contagious Disease Does patient have nerve No 11/16/24 10:54 stimulator Patient instructed to have device shut off --Does patient have Pacemaker or ICD? When Was Last Pacemaker Check QUESTION #4 FULL TEXT: You/Your Family Experience fever (hyperthermia) with Anesthesia Last Oral Intake Last Oral intake: Last Oral Intake NPO since Meds taken in AM with sips of water? Meds patient instructed to take am of surgery PONV PONV - manager sql: PONV - manager sql Female Yes 11/16/24 10:54 HX of Motion Sickness No 11/16/24 10:54 HX of N/V After Surgery No 11/16/24 10:54 Non-Smoker No 11/16/24 10:54 Duration of Surgery greater No 11/16/24 10:54 than 60 minutes Number of Risk Factors 1 11/16/24 10:54 PONV Score Low Risk 11/16/24 10:54 Height & Weight Height & Weight: Anesthesia: Height & Weight Height 5 ft 2 in 11/14/24 08:45 Respiratory Assessment Respiratory Assessment - manager sql: Respiratory Tract Infection Hx - manager sql Hx Respiratory Tract Infection No 11/16/24 10:54 STOP Sleep Apnea STOP Sleep Apnea - manager sql: STOP Sleep Apnea - manager sql Hx Hypertension Yes 11/16/24 10:54 Hx Sleep Apnea Yes 11/16/24 10:54 CPAP No 11/16/24 10:54 BIPAP Yes: NONCOMPLIANT 11/16/24 10:54 Do you snore loudly (louder than talking or can be heard Do you often feel tired/ fatigued/ sleepy during daytime? Has anyone observed you stop breathing during sleep? STOP Results Positive 11/16/24 10:54 QUESTION #5 FULL TEXT : Do you snore loudly (louder than talking or can be heard through closed doors)? 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 Specify any problems Hx of Preganancy in last 3 No 11/16/24 10:54 Months Nurse Filling Out Transfusion VLEHMAN 11/16/24 10:54 & Questions: Date: 11/16/24 11/16/24 10:54 Time: 10:57 11/16/24 10:54 Patient unable to answer at this time (ie. confused, unrespo /Reproduction History /Reproductive History - manager sql: /Reproductive Hx- manager sql Hx Now No 11/16/24 10:54 Gestational Age (in weeks): EDC: Hx Hx Para Hx Section SAB No 11/16/24 10:54 [facility] Medical History (Updated 11/16/24 @ 15:04 by Ngozi Varela) Wears glasses Schizoaffective disorder Marijuana use History of renal disease Excessive bleeding Dietary restriction History of IBS Heartburn Sleep apnea On home oxygen therapy Chronic cough Shortness of breath on exertion COPD (chronic obstructive pulmonary disease) History of echocardiogram Cardiology follow-up encounter Fibromyalgia Hypertension Palpitations Moderate chronic obstructive pulmonary disease Chronic hypoxic respiratory failure Bipolar disorder Schizophrenia Depression Diabetes Chronic pain Smoker BiPAP (biphasic positive airway pressure) dependence Pulmonary embolism Morbid obesity with BMI of 50.0-59.9, adult Hypersomnia Pulmonary infarction Bilateral pulmonary embolism Morbid obesity Nicotine dependence, cigarettes, uncomplicated Tobacco abuse Non-healing surgical wound Cellulitis and abscess of neck Upper airway obstruction Bahman's angina Acute respiratory failure Bipolar disorder Anxiety Chronic back pain Home Medications ?Medication ?Instructions ?Recorded ?Last Taken ?Type valacyclovir 1 gram tablet 1,000 mg PO DAILY anti virus 08/12/18 07/29/23 08:00 History 1,000 mg aripiprazole lauroxil 882 mg/3.2 882 mg IM QMONTH mental health 09/12/18 07/28/23 History mL suspension, ext.rel. IM syringe gabapentin 300 mg capsule 300 mg PO TIDCM nerve pain 07/02/20 07/28/23 21:00 History bupropion HCl 300 mg 24 hr tablet, 300 mg PO DAILY mental health 09/04/22 07/29/23 08:00 History extended release 300 mg omeprazole 20 mg tablet,delayed 20 mg PO DAILY reflux 09/04/22 07/29/23 08:00 History release 40 mg acetaminophen 325 mg tablet 650 mg (2 x 325 mg) PO Q4H PRN PRN 09/05/22 07/29/23 08:00 Rx Fever, pain -01/25 #0 tabs 650 mg apixaban 5 mg tablet (Eliquis) 5 mg PO Q12H blood thinner 05/27/23 07/29/23 08:00 History 5 mg diabetic supplies, miscellan. #1 ea 08/02/23 Unknown Rx cetirizine 10 mg tablet 10 mg PO QDAY 10/27/23 Unknown History budesonide 160 mcg-glycopyr 9 2 inh inhalation BID #3 ea 02/06/24 Unknown Rx mcg-formot 4.8 mcg/actuation HFA inhaler (Breztri Aerosphere) ipratropium 0.5 mg-albuterol 3 mg 3 ml inhalation Q4H PRN PRN SOB 02/06/24 Unknown Rx (2.5 mg base)/3 mL nebulization &/OR WHEEZING #180 mL soln metformin 1,000 mg tablet 1,000 mg PO BID 03/07/24 Unknown History amlodipine 10 mg tablet 10 mg PO QDAY #30 tabs 04/30/24 Unknown Rx lisinopril 20 mg tablet 20 mg PO BID #60 tabs 04/30/24 Unknown Rx glimepiride 2 mg tablet 2 mg PO BID #60 tabs 07/23/24 Unknown Rx blood sugar diagnostic (OneTouch #100 ea 08/08/24 Unknown Rx Verio test strips) cholecalciferol (vitamin D3) 25 25 mcg PO QDAY 09/05/24 Unknown History mcg (1,000 unit) capsule cyclobenzaprine 10 mg tablet 10 mg PO TID PRN pain #30 tabs 09/24/24 Unknown Rx leg brace (PADMINI Ankle Brace) #2 ea 09/24/24 Unknown Rx leg brace (PADMINI Knee Brace) #2 ea 09/24/24 Unknown Rx blood-glucose sensor (FreeStyle #2 ea 10/24/24 [address] Rx Km 3 Plus Sensor device) empagliflozin 25 mg tablet 25 mg PO QAM #30 tabs 10/24/24 Unknown Rx (Jardiance) semaglutide 0.25 mg or 0.5 mg (2 0.25 mg (0.368 mL) subcut QWEEK #3 10/24/24 11/09/24 Rx mg/3 mL) subcutaneous pen injector mL (Ozempic) albuterol sulfate 90 mcg/actuation 1 - 2 puff inhalation Q4H PRN PRN 10/29/24 Unknown Rx aerosol inhaler (Ventolin HFA) Wheezing ##1 blood-glucose,rn picu,cont #1 ea 11/12/24 Unknown Rx (FreeStyle Km [address] [place]) Allergy/AdvReac Type Severity Reaction Status Date / Time prednisone AdvReac Other Verified 11/16/24 10:48 Sulfa (Sulfonamide AdvReac Rash Verified 11/16/24 10:48 Antibiotics) Family History Other Adopted Surgical History History of mandibular surgery History of adenoidectomy History of cholecystectomy Social History household members: none current occupational status: disabled 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 Normal sinus rhythm. Left anterior fascicular block. Minimal voltage criteria for LVH. Echo (EF%) pertinent findings: March 29, 2024. EF of 55%. PASP is 60 mmHg. No aortic stenosis. Consult pertinent findings: August 17, 2024. 1. Palpitations?inactive-patient denies any recent symptoms or events. Continue to monitor. 2. Hypertension?[id number] at this time. Continue current medical therapy. 3. Shortness of breath?chronic-multifactorial including morbid obesity, COPD, obstructive sleep apnea, possible right heart issues related to her recurrent pulmonary emboli. 4. Pulmonary emboli?acute-patient has a history of pulmonary emboli in the past. On long-term Eliquis at this time. Continue to follow with pulmonology. Additional pertinent findings: 03/16/2024. 30-day event monitor. Baseline rate is sinus rhythm. There was 1 episode of V. tach. No atrial fibrillation. Recommendation Anesthesia Recommendation Anesthesia recommendation: OPTIMIZED for anesthesia
[2024-11-21] VITALS (7 sets, daily range): BP systolic 102–151; BP diastolic 70–94; PULSE 81–85; RESP 18–24; TEMP 36.1–36.6; O2SAT 93–95; BMI 45.1
--- OUTSIDE RECORDS SUMMARY | 2024-11-21 07:23 | XMS RPT_ITS | CCD ---
Author Organization [facility] Care Team Providers Care Interpretive Naturalist Name Role Phone JOSE GUADALUPE ABBASI Unavailable Unavailable JOSE GUADALUPE ABBASI Unavailable Unavailable UNKNOWN, REFERR Unavailable Unavailable VAUGHN, COLIN Unavailable Unavailable MANSJOSE GUADALUPE SANDERSON MONIR Unavailable Unavailable MANSMARIA E, HERRERA MONIR Unavailable Unavailable VAUGHN, MOON KVNG Unavailable Unavailab le Unavailable Primary Care Provider Unavailabl e Dr. Guerrero Leroy Emergency Provider Care Physician, No Primary Primary Care Provider Unavailable Dr. Sergey Colon Admit Provider Dr. Sergey Colon Attending Provider Dr. Sergey Colon Other Provider Dr. Simone Bill Other Provider Dr. Simone Bill Attending Provider [facility] Primary Care Pro vider [facility] Referring Provid er Dr. Lorne Shea Attending Provider Dr. Lorne Shea Referring Provider Dr. Lorne Shea Other Provider Dr. Abdias Oreilly Attending Provider Carter METAL PLATER, METAL PLATER-C Afia Primary Care Provider Carter METAL PLATER, METAL PLATER-C Afia Primary Care Provider Dr. Pipe Liu Emergency Provider Dr. Nilson Green Admit Provider [phone] Nilson Green Attending Provider Peter, Dr. Devine Other Provider Carter METAL PLATER, METAL PLATER-C [facility] Primary Care Provider Dr. Pipe Liu Emergency Provider Dr. Nilson Green Admit Provider Dr. Nilson Green Attending Provider Peter, Dr. Devine Other Provider Dr. Aundrea Espinoza Emergency Provider Dr. Sergey Colon Admit Provider Dr. Sergey Colon Attending Provider Dr. Sergey Colon Other Provider Dr. Annabelle Ayoub Attending Provider Dr. Annabelle Ayoub Other Provider Dr. Nabil Xie Attending Provider Dr. Chino Ford Attending Provider Dr. Chino Ford Other Provider Unavailable Primary Care Provider Unavailabl e SARINA NARVAEZ Referring Unavailable SARINA NARVAEZ Attending Unavailable Blanca VALENTIN-CJoy Primary Care Provider [phone] Blanca VALENTIN-CJoy Referring Provider Karena VALENTIN-CNettie Attending Provider Dr. Sen Gonzales MD Attending Provider Dr. Sen Gonzalse MD Referring Provider Karena VALENTIN-CNettie Referring Provider Carter METAL PLATER-C, [facility] Primary Care Provider Shaw DELA CRUZ, Dr. Mcallister Attending Provider Dustin DELA CRUZ, Dr. Agarwal Attending Provider Dustin DELA CRUZ, Dr. Agarwal Emergency Provider Sean METAL PLATER-C, Teagan Attending Provider [phone] BLANCA, JOY DESKTOP SUPPORT ENGINEER Admitting Unavailable BLANCA, JOY DESKTOP SUPPORT ENGINEER Attending Unavailable BLANCA, JOY DESKTOP SUPPORT ENGINEER Primary Care Unavailable BLANCA, JOY DESKTOP SUPPORT ENGINEER Attending Unavailable BLANCA, JOY DESKTOP SUPPORT ENGINEER Primary Care Unavailable BLANCA, JOY DESKTOP SUPPORT ENGINEER Admitting Unavailable Blanca METAL PLATER-C, Joy Primary Care Provider Janet DELA CRUZ, Dr. Chatterjee Attending Provider Janet DELA CRUZ, Dr. Chatterjee Referring Provider Blanca METAL PLATER-C, Joy Referring Provider Karena METAL PLATER-C, Nettie Ceja Attending Provider Karena METAL PLATER-C, Nettie Ceja Referring Provider Jon VALENTIN-CBrandee Attending Provider [phone] Blanca METAL PLATER-C, Joy Attending Provider Jon METAL PLATER-CBrandee Other Provider Diana DELA CRUZ, Dr. Gupta Attending Provider Carter METAL PLATER-CAfia Referring Provider Ivan METAL PLATER-C, Anna Attending Provider [phone] Candy Ortzi MD Primary Care Provider Dr. Candy Ortiz MD Referring Provider Blanca METAL PLATER-C, Joy Primary Care Provider Blanca METAL PLATER-C, Joy Referring Provider Sean METAL PLATER-CTeagan Attending Provider [phone] Sean METAL PLATER-C, Teagan Referring Provider [phone] Blanca METAL PLATER-C, Joy Primary Care Provider Karena METAL PLATER-C, Nettie Ceja Attending Provider Karena METAL PLATER-C, Nettie Ceja Referring Provider Dr. Aundrea Espinoza DO Emergency Provider Olga JAUREGUI, Dr. Guillaume Attending Provider Nettie Thurston Attending Unavailable Blanca METAL PLATER, Joy Referring Unavailable Blanca METAL PLATER, Joy Primary Care Unavailable RuNettie marcano M Referring Unavailable RufenerNettie M Attending Unavailable Blanca METAL PLATER, Joy Primary Care Unavailable Edna VALENTIN, Jeanne Attending Unavailable [place], Candy Primary Care Unavailable RufenerNettie M Attending Unavailable Blanca METAL PLATER, Joy Primary Care Unavailable Blanca METAL PLATER, Joy Referring Unavailable [place], Candy Primary Care Unavailable [place], Candy Referring Unavailable Diana, Candy Attending Unavailable RufenerNettie M Attending Unavailable Diana, Candy Referring Unavailable [place], Candy Primary Care Unavailable Aundrea Espinoza Attending Unavailable Diana, Candy Primary Care Unavailable Joel METAL PLATER, Salma Attending Unavailable Joel METAL PLATER, Salma Referring Unavailable Carter VSC, Afia Primary Care Unavailabl e Nettie Thurston Referring Unavailable Nettie Thurston Attending Unavailable Blanca METAL PLATER, Joy Primary Care Unavailable Joel METAL PLATER, Salma Attending Unavailable Carter VSC, Afia Referring Unavailabl e Carter VSC, Afia Primary Care Unavailabl e Brandee Weems Attending Unavailable Blanca METAL PLATER, Joy Primary Care Unavailable Blanca METAL PLATER, Joy Referring Unavailable Nettie Thurston Attending Unavailable Blanca METAL PLATER, Joy Primary Care Unavailable Blanca METAL PLATER, Joy Referring Unavailable Blanca METAL PLATER, Joy Attending Unavailable Blanca METAL PLATER, Joy Primary Care Unavailable Blanca METAL PLATER, Joy Referring Unavailable Brandee Weems Consulting Unavailable Teagan Estrada Referring Unavailable Teagan Estrada Attending Unavailable Diana, Candy Primary Care Unavailable Nettie Thurston Attending Unavailable Nettie Thurston M Referring Unavailable Diana, Candy Primary Care Unavailable Sen Gonzales Referring Unavailable Sen Gonzales Attending Unavailable Blanca METAL PLATER, Joy Primary Care Unavailable RuNettie marcano M Attending Unavailable RuNettie marcano M Referring Unavailable Blanca METAL PLATER, Joy Primary Care Unavailable Stefano Chan Attending Unavailable Blanca METAL PLATER, Joy Primary Care Unavailable RuNettie marcano M Attending Unavailable RuNettie marcano M Referring Unavailable Diana, Candy Primary Care Unavailable [facility], Afia Referring Unavailabl e Ivan VALENTIN, Anna Attending Unavailable [place], Candy Primary Care Unavailable Nettie Thurston Attending Unavailable Diana, Candy Referring Unavailable [place], Candy Primary Care Unavailable Blanca METAL PLATER, Joy Primary Care Unavailable Joel METAL PLATER, Salma Attending Unavailable Joel METAL PLATER, Salma Referring Unavailable Sen Gonzales Attending Unavailable Sen Gonzales Referring Unavailable Carter [facility], Afia Primary Care Unavailabl e Sen Gonzales Attending Unavailable Blanca METAL PLATER, [facility] Primary Care Unavailable Sen Gonzales Referring Unavailable Blanca METAL PLATER, Joy Primary Care Unavailable Joel METAL PLATER, Salma Attending Unavailable Maldonado METAL PLATER, Salma Referring Unavailable Maldonado METAL PLATER, Salma Referring Unavailable Joel METAL PLATER, Salma Attending Unavailable [facility], [facility] Primary Care Unavailabl e Jason Kirk Attending Unavailable Blanca METAL PLATER, [facility] Primary Care Unavailable Jason Kirk Attending Unavailable Diana, Candy Primary Care Unavailable Diana, Candy Referring Unavailable Nettie Thurston Attending Unavailable Nettie Thurston Referring Unavailable Blanca METAL PLATER, Joy Primary Care Unavailable Joel METAL PLATER, Salma Referring Unavailable Joel METAL PLATER, Salma Attending Unavailable [facility], [facility] Primary Care Unavailabl e Blanca METAL PLATER, [facility] Primary Care Unavailable Blanca METAL PLATER, Joy Referring Unavailable Diana, Candy Attending Unavailable Nettie Thurston Attending Unavailable Nettie Thurston Referring Unavailable Diana, Candy Primary Care Unavailable Blanca METAL PLATER, Joy Primary Care Unavailable Ary Squires Attending Unavailabl e Sen Gonzales Referring Unavailable Sen Gonzales Attending Unavailable Blanca METAL PLATER, Joy Primary Care Unavailable Blanca METAL PLATER, Joy Primary Care Unavailable Blanca METAL PLATER, Joy Referring Unavailable Teagan Estrada Attending Unavailable Brandee Weems Attending Unavailable Blanca METAL PLATER, Joy Referring Unavailable [place], Candy Primary Care Unavailable Nettie Thurston Attending Unavailable [place], Candy Primary Care Unavailable [place], Candy Referring Unavailable Sen Gonzales Attending Unavailable [facility], Afia Referring Unavailabl e Carter VSC, Afia Primary Care Unavailabl e Teagan Estrada Attending Unavailable [place], Candy Primary Care Unavailable Diana, Candy Referring Unavailable Allergies Allergy Classification Reported Allergen(s) Allergy Type Date of Onset Reaction(s) Facility (5 sources) acetaminophen / HYDROcodone; Translations: [HYDROCODONE-ACET AMINOPHEN] Drug Allergy 9 GI Upset [facility] Repository (20 sources) predniSONE; Translations: [PREDNISONE] Drug Allergy 0 Other [facility] Repository (20 sources) Sulfonamides (Antibiotic); Translations: [SULFA (SULFONAMIDE ANTIBIOTICS)] Propensity to adverse reactions to drug (disorder) 6 Rash [facility] Repository (5 sources) traMADol; Translations: [TRAMADOL HCL] Drug Allergy 0 Other: See Comments [facility] Medications Current Medications Medication Drug Class(es) Dates Sig (Normalized) Sig (Original) acamprosate (1 source) End: 02-02-2022 ACAMPROSATE CALCIUM (ACAMPROSATE ORAL) Indications: Excessive or frequent menstruation , Encounter for IUD removal and reinsertion Take by mouth. 0 02/02/2022 Discontinued (Other) Comment on above: Take by mouth. acetaminophen 325 mg oral tablet (17 sources) Start: 09-05-2022 take 2 tablets by mouth every four hours as needed for pain Acetaminophen 325 mg Tablet Active 650 mg PO EVERY 4 HOURS NEEDED as needed for Fever, pain -01/25 0 0 September 05, 2022 12:00am Start: 09-05-2022 take 650 mg by mouth every four hours as needed Acetaminophen Active 650 MG PO EVERY 4 HOURS NEEDED 0 September 05, 2022 12:00am acyclovir 800 mg oral tablet (3 sources) Herpesvirus Nucleoside Analog DNA Polymerase Inhibitor, Herpes Simplex Virus Nucleoside Analog DNA Polymerase Inhibitor, Herpes Zoster Virus Nucleoside Analog DNA Polymerase Inhibitor Start: 03-19-2013 acyclovir 800 mg tablet Indications: Herpes simplex without mention of complication One tablet five times x 5 days 25 tablet 2 03/19/2013 Active Comment on above: One tablet five time s x 5 days albuterol 0.833 mg/ml / ipratropium bromide 0.167 mg/ml inhalation solution (9 sources) Anticholinergic, beta2-Adrenergic Agonist Start: 02-06-2024 take 1 mL by inhalation every four hours as needed for wheezing Ipratropium-Albut sanjana 0.5 mg-3 mg(2.5 mg base)/3 mL solution for nebulization Active 3 mL INHALATION EVERY 4 HOURS NEEDED as needed for SOB &/OR WHEEZING 180 February 06, 2024 12:00am Moderate COPD (chronic obstructive pulmonary disease) Chronic obstructive pulmonary disease, unspecified amLODIPine 10 mg oral tablet (18 sources) Dihydropyridine Calcium Channel Pankaj Start: 04-30-2024 take 1 tablet by mouth once daily Amlodipine 10 mg tablet Active 10 mg PO daily 30 April 30, 2024 1:00am Start: 04-12-2024 End: 04-30-2024 take 1 tablet by mouth once daily Amlodipine 5 mg tablet Discontinued 5 mg PO daily 17 03April 12, 2024 1:00am April 30, 2024 12:52pm apixaban 5 mg oral tablet (20 sources) Factor Xa Inhibitor Start: 05-27-2023 take 1 tablet by mouth every twelve hours Apixaban (Eliquis) 5 mg tablet Active 5 mg PO Q12H May 27, 2023 1:00am blood thinner Start: 09-05-2022 End: 05-27-2023 take 2 tablets by mouth twice daily, then take 1 tablet by mouth twice daily Apixaban (Eliquis) 5 mg tablet Discontinued 10 mg PO DIRECTED 74 September 05, 2022 12:00am May 27, 2023 1:48pm two twice a day starting today- for one week, then one twice a day thereafter ARIPiprazole 30 mg oral tablet (1 source) Atypical Antipsychotic End: 02-02-2022 take 1 tablet by mouth once daily ARIPiprazole (ABILIFY) 30 mg tablet Indications: Excessive or frequent menstruation , Encounter for IUD removal and reinsertion Take 30 mg by mouth once daily. 0 02/02/2022 Discontinued (Other) Comment on above: Take 30 mg by mouth once daily. 3.2 ml ARIPiprazole lauroxil 276 mg/ml prefilled syringe (20 sources) Start: 09-12-2018 Aripiprazole Lauroxil 882 MG/3.2 ML suspension,extended rel syring Active 882 mg IM EVERY MONTH September 12, 2018 12:00am [facility] Blood-Glucose Sensor (Freestyle Km 3 Plus Sensor) device (5 sources) Start: 10-24-2024 Blood-Glucose Sensor (Freestyle [address] Plus Sensor) device Active 0 .Route 2 October 24, 2024 12:00am Diabetes mellitus Type 2 diabetes mellitus with hyperglycemia 1 sensor q 15 days Blood-Glucose,Recei moni,Cont ([address] [place]) misc (1 source) Start: 11-12-2024 Blood-Glucose,Recei moni,Cont ([address] [place]) misc Active 0 .Route 1 November 12, 2024 12:00am As directed Budesonide-Glycopyr -Formoterol (9 sources) Corticosteroid, beta2-Adrenergic Agonist Start: 02-06-2024 Budesonide-Glycopyr -Formoterol (Breztri Aerosphere) 160-9-4.8 mcg/actuation HFA aerosol inhaler Active 2 NMA INHALATION TWICE A DAY 3 February 06, 2024 12:00am Start: 02-06-2024 Budesonide-Gly copyr-Formoterol (Breztri Aerosphere) 160-9-4.8 mcg/actuation HFA aerosol inhaler Active 2 NMA INHALATION TWICE A DAY February 06, 2024 12:00am 24 hr buPROPion hydrochloride 300 mg extended release oral tablet (20 sources) Aminoketone Start: 07-02-2020 take 1 tablet by mouth once daily Bupropion Hcl (Bupropion Hcl Sr) 150 MG Tab.Sr.12h Active 150 MG PO DAILY July 02, 2020 12:00am Start: 03-12-2008 End: 02-02-2022 bupropion hcl(WELLBUTRIN XL 150 MG 24 HR TAB) Indications: Schizoaffective disorder, chronic condition (HCC) Take one(1) tablet daily. 0 03/12/2008 02/02/2022 Discontinued (Other) Start: 01-26-2008 take 1 tablet by valentina th once daily Bupropion Hcl 300 mg tablet extended release 24 hr Active 300 mg PO DAILY September 04, 2022 12:00am mental health Comment on above: Take one(1) tablet d aily. cephalexin 750 mg oral capsule (1 source) Cephalosporin Antibacterial Start: take 1 capsule by mouth twice daily Cephalexin (Keflex) 750 mg capsule Active 750 MG PO TWICE A DAY April 16, 2021 1:00am cetirizine hydrochloride 10 mg oral tablet (9 sources) Histamine-1 Receptor Antagonist Start: 024 take 1 tablet by mouth once daily Cetirizine 10 mg tablet Active 10 mg PO daily October 27, 2023 12:00am citalopram 40 mg oral tablet (1 source) Serotonin Reuptake Inhibitor End: 022 take 1 tablet by mouth once daily citalopram (CELEXA) 40 mg tablet Indications: Excessive or frequent menstruation , Encounter for IUD removal and reinsertion Take 40 mg by mouth once daily. 0 02/02/2022 Discontinued (Other) Comment on above: Take 40 mg by mouth once daily. cyclobenzaprine hydrochloride 10 mg oral tablet (20 sources) Muscle Relaxant Start: 025 take 1 tablet by mouth three times daily as needed for pain Cyclobenzaprine 10 mg tablet Active 10 mg PO THREE TIMES A DAY as needed for pain 30 0 September 24, 2024 12:00am Start: 11-01-2018 End: 11-12-2018 take 1 tablet by mouth three times daily Cyclobenzaprine 10 MG tablet Discontinued 10 mg PO THREE TIMES A DAY 15 5 0 November 01, 2018 12:00am November 05, 2018 12:00am November 12, 2018 12:08am Diabetic Supplies, Miscellan . (1 source) Start: 08-02-2023 Diabetic Suppl ies, Miscellan. Active 0 .Route 1 August 02, 2023 12:00am As directed Diabetic Supplies, Miscellan . misc (9 sources) Start: 08-02-2023 Diabetic Suppl ies, Miscellan. misc Active 0 .Route 1 0 August 02, 2023 12:00am As directed Start: 08-02-2023 Diabetic Suppl ies, Miscellan. misc Active 0 .Route 1 August 02, 2023 12:00am As directed empagliflozin 25 mg oral tablet (13 sources) Sodium-Glucose Cotransporter 2 Inhibitor Start: 10-24-2024 take 1 tablet by mouth once daily in the morning Empagliflozin (Jardiance) 25 mg tablet Active 25 mg PO EVERY MORNING 30 5 October 24, 2024 12:00am Diabetes mellitus Type 2 diabetes mellitus with hyperglycemia Start: 07-23-2024 End: 10-24-2024 take 1 tablet by mouth once daily Empagliflozin (Jardiance) 10 mg tablet Discontinued 10 mg PO daily July 23, 2024 12:00am October 24, 2024 1:32pm esomeprazole 40 mg delayed release oral capsule (2 sources) Proton Pump Inhibitor Start: 08-28-2016 End: 02-02-2022 esomeprazole (NEXIUM) 40 mg capsule DAILY 0 08/28/2016 02/02/2022 Discontinued (Other) Comment on above: DAILY gabapentin 100 mg oral capsule (20 sources) Anti-epileptic Agent Start: 01-19-2022 gabapenti n (NEURONTIN) 100 mg capsule 01/19/2022 Active Start: 07-02-2020 take 1 capsule by mo [facility] three times daily at mealtime Gabapentin 300 MG capsule Active 300 mg PO 3 TIMES DAILY WITH MEALS July 02, 2020 12:00am nerve pain glimepiride 2 mg oral tablet (8 sources) Sulfonylurea Start: 07-23-2024 take 1 tablet by mouth twice daily Glimepiride 2 mg tablet Active 2 mg PO TWICE A DAY 60 5 July 23, 2024 12:00am Diabetes mellitus Type 2 diabetes mellitus without complications hydrOXYzine hydrochloride 50 mg oral tablet (3 sources) Antihistamine Start: 01-19-2022 hydrOXYzine HCl (ATARAX) 50 mg tablet 01/19/2022 Active ibuprofen 800 mg oral tablet (1 source) Nonsteroidal Anti-inflammatory Drug Start: 11-17-2010 End: 02-02-2022 take 1 tablet by mouth every eight hours as needed for pain ibuprofen 800 mg ORAL tablet Indications: Sprain of unspecified site of back Take 1 tablet by mouth every 8 hours as needed. Take one(1) tablet every eight(8) hours as needed for pain. Take with meals. 90 tablet 1 11/17/2010 02/02/2022 Discontinued (Other) Comment on above: Take 1 tablet by valentina every 8 hours as needed. Take one(1) tablet every eight(8) hours as needed for pain. Take with meals. Insulin Glargine-Yfgn (1 source) Start: 08-02-2023 Insulin Glargine-Yfgn Active 15 UNIT SC DAILY August 02, 2023 12:00am Leg Brace (Padmini Ankle Brace) [facility] [place] (7 sources) Start: 09-24-2024 Leg Brace (Padmini Ankle Brace) misc Active 0 .Route 2 0 September 24, 2024 12:00am Bilateral ankle pain Pain in right ankle and joints of right foot Pain in left ankle and joints of left foot As directed Start: 09-24-2024 Leg Brace (Padmini Ankle Brace) misc Active 0 .Route 2 September 24, 2024 12:00am As directed Leg Brace (Padmini Knee Brace) [facility] (7 sources) Start: 09-24-2024 Leg Brace (Padmini Knee Brace) misc Active 0 .Route 2 0 September 24, 2024 12:00am Pain in both knees Pain in right knee Pain in left knee As directed Start: 09-24-2024 Leg Brace (Padmini Knee Brace) misc Active 0 .Route 2 September 24, 2024 12:00am As directed levonorgestrel 0.089992 mg/hr intrauterine system (3 sources) Progestin, Progestin-containing Intrauterine Device Start: 01-03-2017 levonorgestrel (MIRENA) 20 mcg/24 hr (5 years) IUD 1 Each by INTRAUTERINE route as directed. 1 Each 01/03/2017 Active Comment on above: 1 Each by INTRAUTERI NE route as directed. lisinopril 20 mg oral tablet (18 sources) Angiotensin Converting Enzyme Inhibitor Start: 04-30-2024 take 1 tablet by mouth twice daily Lisinopril 20 mg tablet Active 20 mg PO TWICE A DAY 60 April 30, 2024 1:00am Start: 04-12-2024 End: 04-30-2024 take 1 tablet by mouth once daily Lisinopril 20 mg tablet Discontinued 20 mg PO daily April 12, 2024 1:00am April 30, 2024 12:52pm metFORMIN hydrochloride 1000 mg oral tablet (11 sources) Biguanide Start: 02-13-2024 take 1 tablet by mouth twice daily Metformin 1,000 mg tablet Active 1000 mg PO TWICE A DAY March 07, 2024 1:00am MOUNJARO 12.5 mg/0.5 mL pen injector (2 sources) Start: 02-06-2024 MOUNJARO 12.5 mg/0.5 mL pen injector 02/06/2024 Active naltrexone hydrochloride 50 mg oral tablet (3 sources) Opioid Antagonist Start: 01-19-2022 naltrexone (TREXAN) 50 mg tablet 01/19/2022 Active omeprazole 20 mg delayed release oral tablet (20 sources) Proton Pump Inhibitor Start: 09-04-2022 take 1 tablet by mouth once daily Omeprazole 20 mg Tablet,Delayed Release (Dr/Ec) Active 20 mg PO DAILY September 04, 2022 12:00am reflux Start: 01-19-2022 omeprazole (IA ILOSEC) 20 mg capsule 01/19/2022 Active 24 hr oxybutynin chloride 10 mg extended release oral tablet (3 sources) Cholinergic Muscarinic Antagonist Start: 01-19-2022 oxybutynin ER (DITROPAN XL) 10 mg 24 hr tablet 01/19/2022 Active 24 hr paliperidone 1.5 mg extended release oral tablet (3 sources) Atypical Antipsychotic Start: 12-23-2021 paliperidone (INVEGA) 1.5 mg tr24 24 hr tablet 12/23/2021 Active pregabalin 50 mg oral capsule (1 source) Start: 08-12-2018 take 50 mg by mouth three times daily Pregabalin Active 50 MG PO THREE TIMES A DAY August 12, 2018 12:00am Semaglutide (13 sources) Start: 10-24-2024 Semaglutide (Ozempic) 0.25 mg or 0.5 mg (2 mg/3 mL) pen injector Active 0.25 mg SC EVERY WEEK 3 October 24, 2024 1:25pm Diabetes mellitus Chronic kidney disease Type 2 diabetes mellitus without complications Chronic kidney disease, unspecified Start: 07-23-2024 End: 10-24-2024 Semaglutide (Ozempic) 0.25 m g or 0.5 mg (2 mg/3 mL) pen injector Discontinued 0.25 mg SC EVERY WEEK 3 July 23, 2024 12:00am October 24, 2024 1:26pm Diabetes mellitus Chronic kidney disease Type 2 diabetes mellitus without complications Chronic kidney disease, unspecified Start: 07-23-2024 Semaglutide (O zempic) 0.25 mg or 0.5 mg (2 mg/3 mL) pen injector Active 0.25 mg SC EVERY WEEK 3 July 23, 2024 12:00am Diabetes mellitus Chronic kidney disease Type 2 diabetes mellitus without complications Chronic kidney disease, unspecified Start: 07-23-2024 Semaglutide (O zempic) 0.25 mg or 0.5 mg (2 mg/3 mL) pen injector Active 0.25 mg SC EVERY WEEK 3 July 23, 2024 12:00am valACYclovir 1000 mg oral tablet (20 sources) Herpesvirus Nucleoside Analog DNA Polymerase Inhibitor, Herpes Simplex Virus Nucleoside Analog DNA Polymerase Inhibitor, Herpes Zoster Virus Nucleoside Analog DNA Polymerase Inhibitor Start: 08-12-2018 take 1 tablet by mouth once daily Valacyclovir 1,000 MG tablet Active 1000 mg PO DAILY August 12, 2018 12:00am anti virus Start: 12-09-2016 End: 03-14-2017 take 1 mg by mouth once daily Valacyclovir 1,000 MG ta blet Discontinued 1 mg PO DAILY December 09, 2016 12:00am March 14, 2017 3:03pm Start: 12-09-2016 End: 03-14-2017 take 1 mg by mouth once daily Valacyclovir Discontinue d 1 MG PO DAILY December 09, 2016 12:00am March 14, 2017 3:03pm valACYclovir (VA LTREX) 1 gram Indications: Excessive or frequent menstruation , Encounter for IUD removal and reinsertion Take by mouth once daily. Active Comment on above: Take by mouth once d aily. Completed/Discontinued Medications Medication Drug Class(es) Dates Sig (Normalized) Sig (Original) acetaminophen 325 mg / HYDROcodone bitartrate 5 mg oral tablet (18 sources) Opioid Agonist Start: 07-02-2020 End: 07-05-2020 Hydrocodone-Acetami nophen 1 TABLET tablet Discontinued 1 NMA PO EVERY 6 HOURS NEEDED as needed for Pain 10 3 0 July 02, 2020 July 04, 2020 12:00am July 05, 2020 12:04am Fracture of ankle Other fracture of unspecified lower leg, initial encounter for closed fracture Start: 07-02-2020 End: 07-05-2020 take 1 tablet by mouth every six hours as needed Hydrocodone-Acetaminophen Discontinued 1 TAB PO EVERY 6 HOURS NEEDED 10 3 July 02, 2020 July 05, 2020 12:04am [id number] actuat albuterol 0.09 mg/actuat metered dose inhaler (20 sources) beta2-Adrenergic Agonist Start: 09-24-2022 End: 10-29-2024 Albuterol Sulfate (Ventolin Hfa) 90 mcg/actuation HFA aerosol inhaler Discontinued 1 - 2 NMA INHALATION EVERY 4 HOURS NEEDED as needed for Wheezing 1 February 06, 2024 1:38pm October 29, 2024 4:32pm Start: 09-24-2022 take 1 puff(s) by in halation every four hours as needed Albuterol Sulfate (Ventolin Hfa) 90 mcg/actuation HFA aerosol inhaler Active 1 - 2 PUFF INHALATION EVERY 4 HOURS NEEDED September 24, 2022 12:00am Start: 09-12-2018 End: 05-27-2023 Albuterol Sulfate 1 INHALER inhaler Discontinued 2 NMA INHALATION EVERY 4 HOURS NEEDED as needed for Wheezing 1 September 12, 2018 12:00am May 27, 2023 1:48pm Start: 09-12-2018 End: 05-27-2023 Albuterol Sulfate 1 INHALER inhaler Discontinued 2 NMA INHALATION EVERY 4 HOURS NEEDED as needed for Wheezing September 12, 2018 12:00am May 27, 2023 1:48pm Start: 09-12-2018 End: 05-27-2023 take 1 puff(s) by inhalation every four hours as needed Albuterol Sulfate Discontinued 2 PUFF INHALATION EVERY 4 HOURS NEEDED September 12, 2018 12:00am May 27, 2023 1:48pm Start: 09-12-2018 End: 05-27-2023 take 1 puff(s) by inhalation every four hours as needed Albuterol Sulfate Discontinued 2 PUFF INHALATION EVERY 4 HOURS NEEDED September 11, 2018 11:00pm May 27, 2023 12:48pm Start: 09-12-2018 take 1 puff(s) by in halation every four hours as needed Albuterol Sulfate Active 2 PUFF INHALATION EVERY 4 HOURS NEEDED September 12, 2018 12:00am Start: 09-12-2018 take 1 puff(s) by in halation every four hours as needed Albuterol Sulfate Active 2 PUFF inhalation EVERY 4 HOURS NEEDED September 12, 2018 12:00am benzonatate 200 mg oral capsule (9 sources) Non-narcotic Antitussive Start: 04-03-2024 End: 04-03-2024 take 1 capsule by mouth three times daily as needed for cough Benzonatate 200 mg capsule Discontinued 200 mg PO THREE TIMES A DAY as needed for cough 30 0 April 03, 2024 1:00am April 03, 2024 1:33pm Multiple pulmonary nodules Other nonspecific abnormal finding of lung field cefdinir 300 mg oral capsule (9 sources) Cephalosporin Antibacterial Start: 10-27-2023 End: 03-07-2024 take 1 capsule by mouth twice daily Cefdinir 300 mg capsule Discontinued 300 mg PO TWICE A DAY October 27, 2023 12:00am March 07, 2024 11:36am cholecalciferol 0.025 mg oral tablet (20 sources) Vitamin D Start: 09-05-2024 End: 09-24-2024 take 1 tablet by mouth once daily Cholecalciferol (Vitamin D3) 25 mcg (1,000 unit) tablet Discontinued 1000 U PO DAILY September 05, 2024 9:21am September 24, 2024 10:02am vitamin Start: 09-05-2024 take 1 capsule by [facility] once daily Cholecalciferol (Vitamin D3) 25 mcg (1,000 unit) capsule Active 25 ug PO daily September 05, 2024 12:00am Start: 01-19-2022 Cholecalcifero l, Vitamin D3, 125 mcg (5,000 unit) cap 01/19/2022 Active Start: 07-02-2020 End: 09-05-2024 take 5 tablets by mouth once daily Cholecalciferol (Vitamin D3) 1,000 UNIT tablet Discontinued 5000 U PO DAILY July 02, 2020 12:00am September 05, 2024 9:22am vitamin Start: 07-02-2020 take 5000 [IU] by [facility] once daily Cholecalciferol (Vitamin D3) Active 5000 UNIT PO DAILY July 02, 2020 12:00am doxycycline hyclate 100 mg oral capsule (9 sources) Tetracycline-class Drug Start: 03-14-2024 End: 04-03-2024 take 1 capsule by mouth twice daily Doxycycline Hyclate 100 mg capsule Discontinued 100 mg PO TWICE A DAY 14 0 March 14, 2024 1:00am April 03, 2024 12:04pm furosemide 40 mg oral tablet (10 sources) Loop Diuretic Start: 08-02-2023 End: 03-07-2024 take 1 tablet by mouth once daily Furosemide 40 mg tablet Discontinued 40 mg PO DAILY 30 August 02, 2023 12:00am March 07, 2024 11:36am hydroCHLOROthiazide 12.5 mg oral tablet (9 sources) Thiazide Diuretic Start: 05-10-2024 End: 10-24-2024 take 1 tablet by mouth once daily in the morning Hydrochlorothiazide 12.5 mg tablet Discontinued 12.5 mg PO EVERY MORNING 17 03May 10, 2024 1:00am October 24, 2024 4:08pm Insulin Glargine-Yfgn 100 unit/mL (3 mL) Insulin Pen (9 sources) Start: 08-02-2023 End: 03-07-2024 Insulin Glargine-Yfgn 100 unit/mL (3 mL) Insulin Pen Discontinued 15 U SC DAILY August 02, 2023 12:00am March 07, 2024 11:37am Start: 08-02-2023 End: 03-07-2024 Insulin Glargine-Yfgn 100 un it/mL (3 mL) Insulin Pen Discontinued 15 U SC DAILY August 02, 2023 12:00am March 07, 2024 11:37am 3 ml insulin lispro 100 unt/ml pen injector (10 sources) Insulin Analog Start: 08-02-2023 End: 03-07-2024 Insulin Lispro (Humalog Kwikpen Insulin) 100 unit/mL Insulin Pen Discontinued 10 U SC THREE TIMES DAILY BEFORE MEALS August 02, 2023 12:00am March 07, 2024 11:37am Please contact the information source for Protocol details. levoFLOXacin 750 mg oral tablet (9 sources) Quinolone Antimicrobial Start: 04-03-2024 End: 04-03-2024 take 1 tablet by mouth every twenty-four hours Levofloxacin 750 mg tablet Discontinued 750 mg PO Q24H 10 April 03, 2024 1:00am April 03, 2024 1:33pm losartan potassium 50 mg oral tablet (19 sources) Angiotensin 2 Receptor Pankaj Start: 04-12-2024 End: 04-12-2024 take 1 tablet by mouth once daily Losartan 50 mg tablet Discontinued 50 mg PO daily 30 April 12, 2024 1:00am April 12, 2024 2:12pm this is a dose increase Start: 08-02-2023 End: 04-12-2024 take 1 tablet by mouth once daily Losartan 25 mg Tablet Discontinued 25 mg PO DAILY 30 0 August 02, 2023 12:00am April 12, 2024 11:54am methylPREDNISolone 4 mg oral tablet (9 sources) Corticosteroid Start: 10-27-2023 End: 03-07-2024 take 1 tablet by mouth once Methylprednisolone (Medrol (Mauro)) 4 mg tablets,dose pack Discontinued 0 PO per package directions October 27, 2023 12:00am March 07, 2024 11:38am PO PER PKG DIR naproxen 500 mg oral tablet (20 sources) Nonsteroidal Anti-inflammatory Drug Start: 11-01-2018 End: 09-05-2022 take 1 tablet by mouth twice daily as needed for pain Naproxen 500 MG tablet Discontinued 500 mg PO TWICE A DAY as needed for Pain September 04, 2022 1:27pm September 05, 2022 9:41am nitrofurantoin, macrocrystals 25 mg / nitrofurantoin, monohydrate 75 mg oral capsule (10 sources) Nitrofuran Antibacterial Start: 08-02-2023 End: 03-07-2024 take 1 capsule by mouth every twelve hours at mealtime Nitrofurantoin Monohyd/M-Cryst (Macrobid) 100 mg capsule Discontinued 100 mg PO Q12H 10 5 0 August 02, 2023 12:00am March 07, 2024 11:38am must administer with a meal/food oseltamivir 75 mg oral capsule (12 sources) Neuraminidase Inhibitor Start: 05-30-2023 End: 07-29-2023 take 1 capsule by mouth twice daily Oseltamivir (Tamiflu) 75 mg capsule Discontinued 75 mg PO TWICE A DAY 4 2 0 May 30, 2023 1:00am July 29, 2023 10:53pm oxyCODONE hydrochloride 5 mg oral tablet (18 sources) Opioid Agonist Start: 03-14-2017 End: 03-23-2017 take 1 tablet by mouth every eight hours as needed for pain Oxycodone 5 MG tablet Discontinued 5 mg PO EVERY 8 HOURS NEEDED as needed for Severe Pain (6-10/10) 14 0 March 14, 2017 3:03pm March 23, 2017 10:31am predniSONE 20 mg oral tablet (20 sources) Start: 08-02-2023 End: 10-27-2023 take 2 tablets by mouth once daily Prednisone 20 mg tablet Discontinued 40 mg PO DAILY 10 August 02, 2023 12:00am October 27, 2023 12:45pm Start: 08-02-2023 take 40 mg by mouth once daily Prednisone Active 40 MG PO DAILY August 02, 2023 12:00am Start: 05-30-2023 End: 07-29-2023 take 2 tablets by mouth once daily Prednisone 20 mg tablet Discontinued 40 mg PO DAILY 4 2 0 May 30, 2023 1:00am July 29, 2023 10:54pm Start: 05-30-2023 End: 07-29-2023 take 40 mg by mouth once daily Prednisone Discontinued 40 MG PO DAILY 4 2 May 30, 2023 1:00am July 29, 2023 10:54pm Tirzepatide (Mounjaro) 10 mg/0.5 mL pen injector (9 sources) Start: 10-27-2023 End: 02-06-2024 Tirzepatide (Mounjaro) 10 mg /0.5 mL pen injector Discontinued mg SC October 27, 2023 12:00am February 06, 2024 1:14pm Tirzepatide (Mounjaro) 12.5 mg/0.5 mL pen injector (9 sources) Start: 02-06-2024 End: 05-25-2024 Tirzepatide (Mounjaro) 12.5 mg/0.5 mL pen injector Discontinued mg SC February 06, 2024 12:00am May 25, 2024 11:40am Tirzepatide (Mounjaro) 5 mg/ 0.5 mL pen injector (20 sources) Start: 10-27-2023 End: 02-06-2024 Tirzepatide (Mounjaro) 5 mg/ 0.5 mL pen injector Discontinued 10 mg SC EVERY WEEK October 27, 2023 12:43pm February 06, 2024 1:14pm for diabetes Start: 10-27-2023 End: 02-06-2024 Tirzepatide (Mounjaro) 5 mg/ 0.5 mL pen injector Discontinued 10 mg SC EVERY WEEK October 27, 2023 12:43pm February 06, 2024 1:14pm Start: 05-27-2023 End: 10-27-2023 Tirzepatide (Mounjaro) 5 mg/ 0.5 mL pen injector Discontinued 5 mg SC EVERY WEEK May 27, 2023 1:00am October 27, 2023 12:46pm for diabetes Start: 05-27-2023 End: 10-27-2023 Tirzepatide (Mounjaro) 5 mg/ 0.5 mL pen injector Discontinued 5 mg SC EVERY WEEK May 27, 2023 1:00am October 27, 2023 12:46pm Start: 05-27-2023 Tirzepatide (M ounjaro) 5 mg/0.5 mL pen injector Active 5 MG SC EVERY WEEK May 27, 2023 1:00am Start: 05-27-2023 Tirzepatide (M ounjaro) 5 mg/0.5 mL pen injector Active 5 MG SC EVERY WEEK May 27, 2023 12:00am 7 actuat umeclidinium 0.0625 mg/actuat / vilanterol 0.025 mg/actuat dry powder inhaler (20 sources) Anticholinergic, beta2-Adrenergic Agonist Start: 10-17-2018 End: 09-13-2019 Umeclidinium-Vilanterol (Anoro Ellipta) 62.5-25 mcg/actuation blister with device Discontinued 1 NMA INHALATION Q24H 1 May 22, 2019 2:08pm September 13, 2019 9:51am Start: 10-17-2018 End: 09-13-2019 Umeclidinium-Vilanterol (Ano ro Ellipta) 62.5-25 mcg/actuation blister with device Discontinued 1 INH INHALATION Q24H May 22, 2019 2:08pm September 13, 2019 9:51am Varenicline Tartrate (Chantix Starting Month Box) 0.5 mg (11)- 1 mg (42) tablets,dose pack (9 sources) Start: 03-14-2024 End: 07-23-2024 take 1 tablet by mouth once Varenicline Tartrate (Chantix Starting Month Box) 0.5 mg (11)- 1 mg (42) tablets,dose pack Discontinued 0 PO per package directions 53 0 March 14, 2024 1:00am July 23, 2024 1:19pm PO PER PKG DIR Start: 03-14-2024 End: 07-23-2024 take 1 tablet by mouth once Varenicline Tartrate (Khan tix Starting Month Box) 0.5 mg (11)- 1 mg (42) tablets,dose pack Discontinued 0 PO per package directions March 14, 2024 1:00am July 23, 2024 1:19pm PO PER PKG DIR Start: 03-14-2024 take 1 tablet by mouth once Va renicline Tartrate (Chantix Starting Month Box) 0.5 mg (11)- 1 mg (42) tablets,dose pack Active 0 PO per package directions March 14, 2024 1:00am PO PER PKG DIR Problems Active Problems Problem Classification Problem Date Documented Da te Episodic/Chronic Acute bronchitis (18 sources) Acute bronchitis; Translations: [Acute bronchitis, unspecified] 08-13-2022 Episodic Administrative/social admission (8 sources) First encounter by subject; Translations: [Persons encountering health services in other specified circumstances] 08-13-2024 Episodic Anxiety disorders (18 sources) Anxiety; Translations: [Anxiety disorder, unspecified] 10-17-2018 Chronic Chronic kidney disease (20 sources) Chronic kidney disease; Translations: [Chronic kidney disease, unspecified] Onset: 10-24-2024 08-13-2024 Chronic Chronic obstructive pulmonary disease and bronchiectasis (20 sources) Chronic obstructive pulmonary disease, unspecified; Translations: [Acute exacerbation of chronic obstructive airways disease] Onset: 12-12-2016 05-27-2023 Chronic Complications of surgical procedures or medical care (18 sources) Non-healing surgical wound; Translations: [Other complications of procedures, not elsewhere classified, initial encounter] 10-17-2018 Episodic Comment on above: Left Jaw Diabetes mellitus with complications (10 sources) Type 2 diabetes mellitus with hyperglycemia; Translations: [Microalbuminuria due to type 2 diabetes mellitus] Onset: 01-05-2024 10-24-2024 Chronic Diabetes mellitus without complication (20 sources) Diabetes mellitus; Translations: [Type 2 diabetes mellitus without complications] Onset: 10-24-2024 08-26-2023 Chronic Diabetes mellitus without complication (14 sources) Diabetes mellitus without complication Diseases of mouth; excluding dental (18 sources) Bahman's angina; Translations: [Cellulitis and abscess of mouth] 10-17-2018 Episodic Diseases of white blood cells (20 sources) Leukocytosis; Translations: [Elevated white blood cell count, unspecified] 07-29-2023 Chronic Disorders of lipid metabolism (1 source) Hyperlipidemia, unspecified; Translations: [HYPERLIPIDEMIA UNSPECIFI] Onset: 12-12-2016 Chronic E Codes: Fall (8 sources) Fall; Translations: [Unspecified fall, initial encounter] Onset: 09-24-2024 09-24-2024 Episodic Esophageal disorders (6 sources) Gastro-esophageal reflux disease without esophagitis; Translations: [Gastroesophageal reflux disease] Onset: 03-29-2006 Resolved: 03-12-2008 03-04-2010 Chronic Essential hypertension (20 sources) Essential (primary) hypertension; Translations: [Hypertensive disorder] Onset: 04-22-2010 04-22-2010 Chronic Fluid and electrolyte disorders (13 sources) Lactic acidosis; Translations: [Lactic acidosis] 07-29-2023 Episodic Genitourinary symptoms and ill-defined conditions (3 sources) Female stress incontinence; Translations: [Stress incontinence (female) (male)] Onset: 03-29-2018 03-29-2018 Chronic Genitourinary symptoms and ill-defined conditions (19 sources) Dysuria; Translations: [Dysuria] Onset: 12-02-2011 Resolved: 02-02-2022 12-02-2011 Episodic Immunizations and screening for infectious disease (5 sources) Patient encounter status; Translations: [Encounter for screening for infections with a predominantly sexual mode of transmission] Episodic Influenza (15 sources) Influenza due to Influenza A virus; Translations: [Influenza due to identified novel influenza A virus with pneumonia] 05-27-2023 Episodic Malaise and fatigue (1 source) Other fatigue; Translations: [Other fatigue] Onset: 10-12-2024 Episodic Menstrual disorders (3 sources) Dysmenorrhea; Translations: [Dysmenorrhea, unspecified] Onset: 11-26-2011 11-26-2011 Chronic Mood disorders (20 sources) Bipolar disorder; Translations: [Bipolar disorder, unspecified] Onset: 11-26-2011 Resolved: 02-02-2022 10-17-2018 Chronic Nutritional deficiencies (3 sources) Vitamin D deficiency; Translations: [Vitamin D deficiency, unspecified] Onset: 10-06-2008 03-04-2010 Chronic Other aftercare (17 sources) Drug therapy finding; Translations: [skilled nursing (current) use of anticoagulants] 10-02-2022 Episodic Other aftercare (1 source) Other long term care administrator (current) drug therapy; Translations: [Other long term care administrator (current) drug therapy] Onset: 10-12-2024 Episodic Other gastrointestinal disorders (20 sources) Constipation; Translations: [Constipation, unspecified] 05-25-2024 Episodic Other gastrointestinal disorders (12 sources) Spurious diarrhea - overflow; Translations: [Diarrhea, unspecified] 10-23-2024 Episodic Other gastrointestinal disorders (12 sources) Incontinence of feces; Translations: [Full incontinence of feces] 10-23-2024 Episodic Other gastrointestinal disorders (1 source) Constipation, unspecified; Translations: [Constipation, unspecified] Onset: 11-08-2024 Episodic Other gastrointestinal disorders (1 source) Diarrhea, unspecified; Translations: [Diarrhea, unspecified] Onset: 10-24-2024 Episodic Other gastrointestinal disorders (1 source) Full incontinence of feces; Translations: [Full incontinence of feces] Onset: 10-24-2024 Episodic Other gastrointestinal disorders (1 source) Incomplete defecation; Translations: [Incomplete defecation] Onset: 10-24-2024 Episodic Other liver diseases (3 sources) Inflammatory disease of liver; Translations: [Inflammatory liver disease, unspecified] Onset: 11-22-2006 03-04-2010 Chronic Other lower respiratory disease (20 sources) Dyspnea; Translations: [Shortness of breath] 10-17-2018 Episodic Other lower respiratory disease (18 sources) Wheezing; Translations: [Wheezing] 10-02-2022 Episodic Other lower respiratory disease (17 sources) Dyspnea on exertion; Translations: [Other forms of dyspnea] 10-02-2022 Episodic Other lower respiratory disease (12 sources) Respiratory insufficiency; Translations: [Other abnormalities of breathing] 05-27-2023 Episodic Other lower respiratory disease (2 sources) Hypoxemia; Translations: [Hypoxemia] 05-27-2023 Episodic Other lower respiratory disease (3 sources) Other abnormalities of breathing; Translations: [Other pulmonary insufficiency, not elsewhere classified] 05-30-2023 Episodic Other lower respiratory disease (2 sources) Hypoxemia; Translations: [Hypoxemia] 05-30-2023 Episodic Other lower respiratory disease (2 sources) Dyspnea, unspecified; Translations: [Other respiratory abnormalities] 07-29-2023 Episodic Other lower respiratory disease (9 sources) History of chronic obstructive airway disease; Translations: [Personal history of other diseases of the respiratory system] 04-11-2024 Episodic Other lower respiratory disease (20 sources) Multiple nodules of lung; Translations: [Other nonspecific abnormal finding of lung field] 04-03-2024 Episodic Comment on above: Negative PET 03/2024 , [address] planned Negative PET 03/2024 right lower lobe 5.8 x 1.6 cm Other lower respiratory disease (2 sources) Other nonspecific abnormal finding of lung field; Translations: [Other nonspecific abnormal finding of lung field] Onset: 11-14-2024 Episodic Other lower respiratory disease (2 sources) Shortness of breath; Translations: [Shortness of breath] Onset: 12-04-2023 Episodic Other lower respiratory disease (1 source) Wheezing; Translations: [Wheezing] Onset: 11-14-2024 Episodic Other nervous system disorders (1 source) Other chronic pain; Translations: [OTHER CHRONIC PAIN] Onset: 12-12-2016 Chronic Other nervous system disorders (16 sources) Neuropathy; Translations: [Polyneuropathy, unspecified] 07-24-2024 Chronic Other non-traumatic joint disorders (7 sources) Ankle pain; Translations: [Pain in right ankle and joints of right foot] 09-24-2024 Episodic Other non-traumatic joint disorders (8 sources) Pain in right knee; Translations: [Pain in both knees] Onset: 09-24-2024 09-24-2024 Episodic Other non-traumatic joint disorders (1 source) Pain in left knee; Translations: [Pain in left knee] Onset: 09-24-2024 Episodic Other non-traumatic joint disorders (1 source) Pain in right ankle and joints of right foot; Translations: [Pain in right ankle and joints of right foot] Onset: 09-24-2024 Episodic Other non-traumatic joint disorders (1 source) Pain in left ankle and joints of left foot; Translations: [Pain in left ankle and joints of left foot] Onset: 09-24-2024 Episodic Other nutritional; endocrine; and metabolic disorders (20 sources) Body mass index 40+ - severely obese; Translations: [Morbid (severe) obesity due to excess calories] Onset: 02-02-2022 Chronic Other nutritional; endocrine; and metabolic disorders (19 sources) Morbid obesity; Translations: [Morbid (severe) obesity due to excess calories] 10-17-2018 Chronic Other nutritional; endocrine; and metabolic disorders (6 sources) Morbid (severe) obesity due to excess calories; Translations: [Morbid obesity] Onset: 04-25-2024 09-30-2022 Chronic Other nutritional; endocrine; and metabolic disorders (20 sources) Obesity; Translations: [Obesity, unspecified] 07-24-2024 Chronic Other nutritional; endocrine; and metabolic disorders (16 sources) Hypercalcemia; Translations: [Hypercalcemia] 08-13-2024 Chronic Other screening for suspected conditions (not mental disorders or infectious disease) (11 sources) Imaging of thorax abnormal; Translations: [Abnormal findings on diagnostic imaging of other specified body structures] 07-30-2023 Chronic Other upper respiratory disease (1 source) Other allergic rhinitis; Translations: [Other allergic rhinitis] Onset: 01-05-2024 Chronic Personality disorders (1 source) Personality disorder, unspecified; Translations: [PERSONALITY DISORDER UNS] Onset: 12-12-2016 Chronic Pneumonia (except that caused by tuberculosis or sexually transmitted disease) (11 sources) Pneumonia; Translations: [Pneumonia, unspecified organism] 07-29-2023 Episodic Pulmonary heart disease (15 sources) Pulmonary hypertension; Translations: [Pulmonary hypertension, unspecified] 09-05-2024 Chronic Residual codes; unclassified (17 sources) Hypersomnia; Translations: [Hypersomnia, unspecified] 09-30-2022 Chronic Residual codes; unclassified (5 sources) Hypersomnia, unspecified; Translations: [Hypersomnia, unspecified] 09-30-2022 Chronic Residual codes; unclassified (9 sources) Dependence on biphasic positive airway pressure ventilation; Translations: [Dependence on other enabling machines and devices] 08-26-2023 Chronic Residual codes; unclassified (20 sources) Obstructive sleep apnea syndrome; Translations: [Obstructive sleep apnea (adult) (pediatric)] 10-27-2023 Chronic Comment on above: AHI 43 Residual codes; unclassified (1 source) Obstructive sleep apnea (adult) (pediatric); Translations: [Obstructive sleep apnea (adult) (pediatric)] Onset: 05-03-2024 Chronic Residual codes; unclassified (20 sources) Tobacco user; Translations: [Tobacco use] Onset: 05-13-2010 Resolved: 11-26-2011 08-13-2022 Episodic Residual codes; unclassified (18 sources) History of adenoidectomy; Translations: [Acquired absence of other organs] 10-17-2018 Episodic Residual codes; unclassified (8 sources) Medication refused; Translations: [Immunization not carried out because of patient refusal] 08-13-2024 Episodic Respiratory failure; insufficiency; arrest (adult) (18 sources) Acute respiratory failure; Translations: [Acute respiratory failure, unspecified whether with hypoxia or hypercapnia] 10-17-2018 Episodic Schizophrenia and other psychotic disorders (20 sources) Schizoaffective disorder, bipolar type; Translations: [Chronic schizoaffective schizophrenia] Onset: 03-29-2006 03-04-2010 Chronic Skin and subcutaneous tissue infections (18 sources) Cellulitis and abscess of neck; Translations: [Cellulitis of neck] 10-17-2018 Episodic Spondylosis; intervertebral disc disorders; other back problems (20 sources) Low back pain; Translations: [Lumbago] Onset: 06-04-2008 03-04-2010 Episodic Substance-related disorders (20 sources) Nicotine dependence, cigarettes, uncomplicated; Translations: [Tobacco user] Onset: 03-29-2006 03-04-2010 Chronic Comment on above: current smoker Suicide and intentional self-inflicted injury (18 sources) Suicidal thoughts; Translations: [Suicidal ideations] 08-14-2018 Episodic Urinary tract infections (13 sources) Urinary tract infectious disease; Translations: [Urinary tract infection, site not specified] 07-29-2023 Episodic Past or Other Problems Problem Classification Problem Date Documented Date Episodic/Chronic Cardiac dysrhythmias (20 sources) Palpitations; Translations: [Palpitations] Onset: 03-19-2024 03-14-2024 Episodic Contraceptive and procreative management (3 sources) Intrauterine contraceptive device in situ; Translations: [Presence of (intrauterine) contraceptive device] Onset: 12-01-2011 12-01-2011 Episodic Diabetes mellitus without complication (3 sources) Impaired fasting glycemia; Translations: [Impaired fasting glucose] Onset: 10-01-2008 03-04-2010 Episodic Hepatitis (2 sources) Acute hepatitis C without mention of hepatic coma; Translations: [Acute hepatitis C without mention of hepatic coma(070.51)] Resolved: 03-12-2008 03-12-2008 Episodic Nonspecific chest pain (1 source) Chest pain, unspecified; Translations: [Chest pain, unspecified] Onset: 07-23-2024 Episodic Other circulatory disease (2 sources) Disorder of capillaries; Translations: [Disease of capillaries, unspecified] Onset: 11-28-2006 Resolved: 09-24-2008 09-24-2008 Episodic Other connective tissue disease (3 sources) Muscle pain; Translations: [Myalgia and myositis, unspecified] Onset: 03-12-2008 03-04-2010 Episodic Other inflammatory condition of skin (2 sources) Rosacea; Translations: [Rosacea, unspecified] Onset: 11-28-2006 Resolved: 09-24-2008 09-24-2008 Chronic Other screening for suspected conditions (not mental disorders or infectious disease) (16 sources) Serum creatinine raised; Translations: [Other specified abnormal findings of blood chemistry] Onset: 01-05-2024 07-30-2023 Episodic Other skin disorders (2 sources) Acne; Translations: [Other acne] Onset: 11-28-2006 Resolved: 09-24-2008 09-24-2008 Episodic Other skin disorders (2 sources) Scar conditions and fibrosis of skin; Translations: [Scar conditions and fibrosis of skin] Onset: 11-28-2006 Resolved: 09-24-2008 09-24-2008 Episodic Other skin disorders (2 sources) Disorder of skin; Translations: [Other specified disorders of the skin and subcutaneous tissue] Onset: 05-17-2007 Resolved: 03-12-2008 03-12-2008 Episodic Other upper respiratory disease (2 sources) Allergic rhinitis; Translations: [Allergic rhinitis, unspecified] Resolved: 11-26-2011 11-26-2011 Chronic Other upper respiratory disease (1 source) Stridor; Translations: [STRIDOR] Onset: 12-12-2016 Episodic Pulmonary heart disease (20 sources) Pulmonary infarction; Translations: [Other pulmonary embolism without acute cor pulmonale] Onset: 08-07-2024 09-13-2022 Episodic Comment on above: multiple times in licha ngs Unclassified (1 source) Patient's noncompliance with other medical treatment and regimen; Translations: [PT NONCOMPLIANCE OTH MED] Onset: 12-12-2016 Episodic Unclassified (18 sources) Upper airway obstruction 11-14-2021 Viral infection (2 sources) Herpes simplex; Translations: [Herpesviral infection, unspecified] Resolved: 02-02-2022 02-02-2022 Episodic Results Test Name Value Interpretation Reference Range Facility MR/PATChucky 11-16-2024 [facility] Medical Records Department [address] [place] [address] PAT - Anesthesia 11/16/24 1311 MR#: [id number] Acct: [id number] Name: SARINA DIOP Rep #: [id number] : 1970 54 From: Sanjeev Arnold MD PCP: Dr. Candy Ortiz MD Status:PRE SDC Y Race: C Location: EN Pre-Assessment Diagnosis/Proposed Procedure Planned Operative Procedure(s): COLONOSCOPY Anesthesia History Anesthesia History - recreational assistant: Anesthesia History - recreational assistant Hx Hospitalization No 11/16/24 10:54 Any Problems With Anesthesia No 11/16/24 10:54 Cholinesterase deficiency No 11/16/24 10:54 You/Your Family Experience Yes: ADOPTED 11/16/24 10:54 fever (hyperthermia) with Relationship Recent Exposure to Contagious Disease Does patient have nerve No 11/16/24 10:54 stimulator Patient instructed to have device shut off --Does patient have Pacemaker or ICD? When Was Last Pacemaker Check QUESTION #4 FULL TEXT: You/Your Family Experience fever (hyperthermia) with Anesthesia Last Oral Intake Last Oral intake: Last Oral Intake NPO since Meds taken in AM with sips of water? Meds patient instructed to take am of surgery PONV PONV - recreational assistant: PONV - recreational assistant Female Yes 11/16/24 10:54 HX of Motion Sickness No 11/16/24 10:54 HX of N/V After Surgery No 11/16/24 10:54 Non-Smoker No 11/16/24 10:54 Duration of Surgery greater No 11/16/24 10:54 than 60 minutes Number of Risk Factors 1 11/16/24 10:54 PONV Score Low Risk 11/16/24 10:54 Height Weight Height Weight: Anesthesia: Height Weight Height 5 ft 2 in 11/14/24 08:45 Respiratory Assessment Respiratory Assessment - recreational assistant: Respiratory Tract Infection Hx - recreational assistant Hx Respiratory Tract Infection No 11/16/24 10:54 STOP Sleep Apnea STOP Sleep Apnea - recreational assistant: STOP Sleep Apnea - recreational assistant Hx Hypertension Yes 11/16/24 10:54 Hx Sleep Apnea Yes 11/16/24 10:54 CPAP No 11/16/24 10:54 BIPAP Yes: NONCOMPLIANT 11/16/24 10:54 Do you snore loudly (louder than talking or can be heard Do you often feel tired/ fatigued/ sleepy during daytime? Has anyone observed you stop breathing during sleep? STOP Results Positive 11/16/24 10:54 QUESTION #5 FULL TEXT : Do you snore loudly (louder than talking or can be heard through closed doors)? Tobacco Use History Tobacco Use History - recreational assistant: Tobacco Use History - recreational assistant Tobacco Use Smoking Status Current every day smoker 11/16/24 10:54 Hx Tobacco Use Yes 11/16/24 10:54 Years Smoking Packs Smoked per Day Smoking Cessation Date was within the last 15 years Hx Smoking Cessation Date Hx Smoking Cessation No 11/16/24 10:54 Counseling Hematologic Medial History Hematologic Hx - recreational assistant: Hematologic Medical Hx - hat lining blocker Hx of Blood Transfusion No 11/16/24 10:54 Hx of Transfusion in last 3 No 11/16/24 10:54 Months Date of Last Transfusion (if within last 3 months) Ever experience any problems No 11/16/24 10:54 with transfusion(s)? Specify any problems Hx of Preganancy in last 3 No 11/16/24 10:54 Months Nurse Filling Out Transfusion [facility] 11/16/24 10:54 Questions: Date: 11/16/24 11/16/24 10:54 Time: 10:57 11/16/24 10:54 Patient unable to answer at this time (ie. confused, unrespo /Reproduction History /Reproductive History - recreational assistant: /Reproductive Hx- recreational assistant Hx Now No 11/16/24 10:54 Gestational Age (in weeks): EDC: Hx Hx Para Hx Section SAB No 11/16/24 10:54 [facility] Medical History (Updated 11/16/24 @ 15:04 by Ngozi Varela) Wears glasses Schizoaffective disorder Marijuana use History of renal disease Excessive bleeding Dietary restriction History of IBS Heartburn Sleep apnea On home oxygen therapy Chronic cough Shortness of breath on exertion COPD (chronic obstructive pulmonary disease) History of echocardiogram Cardiology follow-up encounter Fibromyalgia Hypertension Palpitations Moderate chronic obstructive pulmonary disease Chronic hypoxic respiratory failure Bipolar disorder Schizophrenia Depression Diabetes Chronic pain Smoker BiPAP (biphasic positive airway pressure) dependence Pulmonary embolism Morbid obesity with BMI of 50.0-59.9, adult Hypersomnia Pulmonary infarction Bilateral pulmonary embolism Morbid obesity Nicotine dependence, cigarettes, uncomplicated Tobacco abuse Non-healing surgical wound Cellulitis and abscess of neck Upper airway obstruction Licha (more content not included)... Normal [facility] Pulmonary Visit Reporton Pulmonary Visit Report [facility] [place] [address] [place] [address] OFFICE VISIT Date of Service: 11/14/24 MR#: [id number] Acct: [id number] Name: SARINA DIOP Rep #: [id number] : 1970 Provider: Nettie Thurston NP Age/Sex: 54/F Location: [facility] [place].[facility] Status: Signed Assessment and Plan Assessment and Plan (1) Multiple lung nodules: Status: Chronic Comment: right lower lobe 5.8 x 1.6 cm Plan: High risk patient, no known malignancy elsewhere in the body at this point but has not undergone colonoscopy as previously recommended due to uptake noted in the lower pelvis with concern for the rectum/rectal vault on previous pet imaging. This however is planned for November 21. Most recent chest CT continues to show presence of multiple nodules, most are stable. Unfortunately the right lower lobe nodule has increased in size and is now a pulmonary mass. This still could be underlying malignancy even though the pet scan did not show facilitated uptake in her chest from previous imaging in 2023. I have recommended that the patient undergo a CT guided lung biopsy at [facility]. Previously, she was referred to [facility] but could not travel that distance. I have discussed with her the importance of CT guided biopsy. This plan was discussed with Dr. Oreilly and CT-guided lung biopsy is the recommendation at this time. Labs have been ordered accordingly. (2) Moderate chronic obstructive pulmonary disease: Status: Chronic Plan: COPD is controlled today and stable. She is not exacerbating. NIOX is within normal limits. She did clear her nasal passages during the visit today and to use nasal steroid spray which did improve her constant cough. Continue triple therapy, Breztri inhaler. The patient would like to increase her activity level, I have encouraged her to use her DuoNeb therapy prior to her exercise regimen. Use albuterol as needed. Call for worsening respiratory symptoms. (3) CAMMIE (obstructive sleep apnea): Status: Chronic Comment: AHI 43 Plan: Sleep apnea is not controlled today. Reinstitute use of BiPAP device, she is encouraged to move her device into the living room where she spends time resting. I have discussed the correlation between sleep apnea and suboptimal control of blood glucose levels. I have recommended that she begin use during naps to help her become acclimated to the device again. I have discussed the importance of treating sleep apnea. (4) Schizophrenia: Status: Chronic Qualifiers: Schizophrenia type: unspecified Qualified Code(s): F20.9 - Schizophrenia, unspecified Plan: Complicates exam, plan, care and prognosis. (5) Smoking greater than 20 pack years: Status: Chronic Comment: current smoker Plan: The patient is asked to proceed with complete smoking cessation. This includes all vapor products. (6) Bilateral pulmonary embolism: Status: Acute Plan: The patient had bilateral pulmonary embolism first identified in August 2022. The plan was to at least utilize Eliquis for 6 months. The patient did have a echocardiogram from July 2023 which showed a thrombus in her right atrium. The repeat echocardiogram from March 2024 did not suggest that the thrombus was still. The patient has never been told to discontinue Eliquis, she has continued with routine use since August 2022. I will consider repeating a CTA in the future to determine if embolism is resolved. Patient first needs to follow up for nodule biopsy. (7) Pulmonary hypertension: Status: Acute Plan: PA pressure is 60 mmHg from 03/2024. The pressure is likely still elevated as she is not compliant with treatment for obstructive sleep apnea. The patient has a history of COPD along with pulmonary embolism which could be contributing to the pulmonary hypertension. I am not convinced that pulmonary hypertension is primary at this time however the patient has not undergone a right heart catheterization. Compliant use of PAP therapy is warranted. Orders: Orders NIOX Today R06.2 - Wheezing Biopsy/Inj or Needle Placement Today R91.8 - Other nonspecific abnormal finding of lung field Partial Thromboplast Time Today R06.02 - Shortness of breath, R91.8 - Other nonspecific abnormal finding of lung field Platelet Count Today R91.8 - Other nonspecific abnormal finding of lung field Prothrombin Time w/INR Today R06.02 - Shortness of breath, R91.8 - Other nonspecific abnormal finding of lung field PFT Complete - DLCO, Spirometry b/a bronchodilators, lung volumes Today J44.9 - Chronic obstructive pulmonary disease, unspecified, R91.8 - Other nonspecific abnormal finding of lung field Simple Pulmonary Exercise Test Today J44.9 - Chronic obstructive pulmonary disease, unspecified, R91.8 - Other nonspecific abnormal finding of lung field Plan Details Follow Up: 4 Weeks (LMR) HPI HPI Comments Detai (more content not included)... Normal [facility] Abdomen/Pelvis W IV Cont ONL Yon 11-02-2024 Abdomen/Pelvis W IV Cont ONLY [facility] Imaging Services [address] [place], [place] [id number] Abdomen/Pelvis W IV Cont ONLY MR#: [id number] Acct: [id number] Name: SARINA DIOP Rep #: [id number] : 1970 F 54 From: Johnie Rosas MD PCP: Dr. Candy Ortiz MD Status: REG ER Study: Abdomen/Pelvis W IV Cont ONLY Date of Exam: Exam# [id number] Ordering Dr: Aundrea Espinoza DO PROCEDURE: ABDOMEN/PELVIS W IV CONT ONLY 11/02/2024 REASON FOR EXAM: ABDOMINAL PAIN, CONSTIPATION TECHNIQUE: ABDOMEN/PELVIS W IV CONT ONLY Coronal and Sagittal reconstruction series were provided. CONTRAST: Not indicated One or more dose reduction techniques were used (e.g., Automated exposure control, adjustment of the mA and/or kV according to patient size, use of iterative reconstruction technique. RADIATION DOSE SUMMARY: CTDlvol: 37 mGy DLP: 1244 mGycm FINDINGS: Normal appearance to the liver. Normal portal vein. Normal spleen. Normal adrenal glands. Left renal cyst is present. No renal calculi. No hydronephrosis. No pancreatic mass or inflammation. Gallbladder appears to be surgically absent. No free-fluid in the abdomen or pelvis. There is an IUD within the uterus. There is no obstruction of the large bowel or the small bowel. No colonic wall thickening. Negative for small bowel dilatation. No positive findings of appendicitis or inflammatory changes. Normal bladder contour. Negative for visible adenopathy. Normal lumbar alignment and vertebral body height. CT/Abdomen/Pelvis W IV Cont ONLY IMPRESSION: No acute abnormality. No obstruction or impaction. Reading Location: [facility] CC: Dr. Candy Ortiz MD; Dr. Aundrea Espinoza DO Asic Design Engineer: Signed Normal [facility] Absolute lymphocyte countOrd ered By: Aundrea Espinoza on 11-02-2024 Lymphocytes Auto (Unsp spec) [#/Vol] 2.92 10*3/uL 0.83-4.51 [facility] Absolute neutrophil countOrd ered By: Aundrea Espinoza on 11-02-2024 Neutrophils (Bld) [#/Vol] 5.6 10*3/uL 2.0-7.7 [facility] Anion gap in Serum or Plasma Ordered By: Aundrea Espinoza on 11-02-2024 Anion gap [Moles/Vol] 17 mmol/L High 5-15 [facility] Automated lymphocyte count a s percentage of total leukocytesOrdered By: Aundrea Espinoza on 11-02-2024 Lymphocytes/100 WBC Auto (Unsp spec) 29.3 % 19-41 [facility] BUN/creatinine ratioOrdered By: [facility] Esp[facility] on 11-02-2024 Urea nitrogen/Creatinine [Mass ratio] 19.5 mg/mg 10-20 [facility] Basophil percentageOrdered B y: Aundrea Espinoza on 11-02-2024 Basophils/100 WBC (Bld) 1.0 % 0-1 [facility] Bilirubin, totalOrdered By: Aundrea Espinoza on 11-02-2024 Bilirubin [Mass/Vol] 0.97 mg/dL 0.00-1.30 [facility] CBC W/Diff, Automatedon 10-16 Absolute Lymph 2.92 X10 3/uL Normal 0.83-4.51 [facility] Comment on above: Performed By: #### L 100.0100, L503.6005, L500.4050 ####[facility] [address] [place], [address] Absolute Neut 5.6 X10 3/uL Normal 2.0-7.7 [facility] Comment on above: Performed By: #### L 100.0100, L503.6005, L500.4050 ####[facility] [address] [place], [address] Basophils/100 WBC (Bld) 1.0 % Normal 0-1 [facility] Comment on above: Performed By: #### L 100.0100, L503.6005, L500.4050 ####[facility] [address] [place], [address] Eosinophils/100 WBC (Bld) 1.1 % Normal 0-5 [facility] Comment on above: Performed By: #### L 100.0100, L503.6005, L500.4050 ####[facility] [address] [place], [address] Erythrocyte distribution width (RBC) [Ratio] 19.1 % High 11.6-14.6 [facility] Comment on above: Performed By: #### L 100.0100, L503.6005, L500.4050 ####[facility] [address] [place], [address] Hematocrit (Bld) [Volume fraction] 51.6 % High 37-47 [facility] Comment on above: Performed By: #### L 100.0100, L503.6005, L500.4050 ####[facility] [address] [place], [address] Hemoglobin (Bld) [Mass/Vol] 16.1 g/dL High 12.0-15.0 [facility] Comment on above: Performed By: #### L 100.0100, L503.6005, L500.4050 ####[facility] [address] [place], [address] IG% 0.400 Normal 0.0-0.9 [facility] Comment on above: Result Comment: IG% - Immature Granulocytes (promyelocytes, myelocytes and metamyelocytes) > 1% indicates that a LEFT SHIFT is Present. Performed By: #### L 100.0100, L503.6005, L500.4050 ####[facility] [address] [place], [address] Lymphocytes/100 WBC (Bld) 29.3 % Normal 19-41 [facility] Comment on above: Performed By: #### L 100.0100, L503.6005, L500.4050 ####[facility] [address] [place], [address] MCH (RBC) [Entitic mass] 26.7 pg Low 27.0-32.0 [facility] Comment on above: Performed By: #### L 100.0100, L503.6005, L500.4050 ####[facility] [address] [place], [address] MCHC (RBC) [Mass/Vol] 31.2 g/dL Low 32-36 [facility] Comment on above: Performed By: #### L 100.0100, L503.6005, L500.4050 ####[facility] [address] [place], [address] MCV (RBC) [Entitic vol] 85.7 fL Normal 81-99 [facility] Comment on above: Performed By: #### L 100.0100, L503.6005, L500.4050 ####[facility] [address] [place], [address] Monocytes/100 WBC (Bld) 12.4 % High 0-10 [facility] Comment on above: Performed By: #### L 100.0100, L503.6005, L500.4050 ####[facility] [address] [place], [address] Neutrophils/100 WBC (Bld) 55.8 % Normal 47-70 [facility] Comment on above: Performed By: #### L 100.0100, L503.6005, L500.4050 ####[facility] [address] [place], [address] Nucleated RBC (Bld) [#/Vol] 0 10*3/uL Normal 0-5 [facility] Comment on above: Performed By: #### L 100.0100, L503.6005, L500.4050 ####[facility] [address] [place], [address] Platelet mean volume (Bld) [Entitic vol] 9.4 fL Normal 6.2-12.0 [facility] Comment on above: Performed By: #### L 100.0100, L503.6005, L500.4050 ####[facility] [address] [place], [address] Platelets (Bld) [#/Vol] 293 10*3/uL Normal 150-450 [facility] Comment on above: Performed By: #### L 100.0100, L503.6005, L500.4050 ####[facility] [address] [place], [address] RBC (Bld) [#/Vol] 6.02 10*6/uL High 4.2-5.4 [facility] Comment on above: Performed By: #### L 100.0100, L503.6005, L500.4050 ####[facility] [address] [place], [address] RDW SD 55.8 fl High 35.1-43.9 [facility] Comment on above: Performed By: #### L 100.0100, L503.6005, L500.4050 ####[facility] [address] [place], [place], [address] WBC (Bld) [#/Vol] 10.0 10*3/uL Normal 4.4-11.0 [facility] Comment on above: Performed By: #### L 100.0100, L503.6005, L500.4050 ####[facility] [address] [place], [place], [address] Carbon dioxide, total [Moles /volume] in Central venous bloodOrdered By: Aundrea Espinoza on 11-02-2024 CO2 [Moles/Vol] 20.0 mmol/L Low 21.0-32.0 [facility] Chest without Contraston Chest without Contrast [facility] Imaging Services [address] [place], [place] [address] Chest without Contrast MR#: [id number] Acct: [id number] Name: SARINA DIOP Rep #: [id number] : 1970 F 54 From: Caryn Simon PCP: Dr. Candy Ortiz MD Status: REG CLI Study: Chest without Contrast Date of Exam: 11/02/24 Exam# [id number] Ordering Dr: Nettie Thurston METAL PLATER- C PROCEDURE: CHEST WITHOUT CONTRAST 11/02/2024 REASON FOR EXAM: MULTIPLE LUNG NODULES, CURRENT SMOKER TECHNIQUE: Chest CT without contrast. Coronal and Sagittal reconstruction series were provided. One or more dose reduction techniques were used (e.g., Automated exposure control, adjustment of the mA and/or kV according to patient size, use of iterative reconstruction technique RADIATION DOSE SUMMARY: CTDlvol: 18.2 mGy DLP: 628.1 mGycm COMPARISON: CT scan of the chest dated 07/02/2024 FINDINGS: Due to the absence of IV contrast, evaluation of the vasculature, hilar structures, and soft tissues is limited. Lymph nodes: Unremarkable. Heart and Vasculature: Heart size and configuration are within normal limits. Pulmonary vasculature is unremarkable. Coronary Artery Calcifications: None. Lungs and Airways: There is an increase in size of the irregular subpleural nodule or nodular consolidation in the right lung now measuring 5.8 x 1.6 cm. Previously it measured 2.6 x 2.1 cm. Image 79. The irregular nodular opacity in the anterior right lung apex is smaller on today's exam measuring 3 x 3 mm. Previously it measured 7 x 9 mm. Image 26 There is a similar 3 mm nodule in the left upper lobe. Image 26. There is a cystic lesion with a mural nodule in the left lower lobe which appears slightly smaller on today's study measuring 3.0 x 1.8 cm. This nodule previously measured 3.4 x 2.1 cm. Image 68. There is a cystic lesion with a mural nodule more inferior within the left lower lobe which is slightly smaller on today's study measuring 14 x 6 mm. The nodule previously measured 19 x 10 mm. Image 74. There is a similar 6 x 8 mm nodule in the left lung inferiorly. Image 56. There is a similar subpleural ground-glass appearance in the posterior lateral right lung apex. There is also some stable dependent atelectasis and scarring. Upper Abdomen: The visualized portions of the liver, spleen, adrenal glands, and left kidney are unremarkable. Bones: Diffuse osteopenia of the bony thorax is noted. Degenerative changes of the lumbar spine are noted. CT/Chest without Contrast IMPRESSION: The pulmonary nodules in both lungs appears slightly smaller when compared to the prior examination with the exception that the subpleural nodule or nodular consolidation in the right lung on image number 79 is slightly larger. The findings may represent neoplasm. PET-CT is recommended if this has not already been performed. Biopsy may also be warranted in order to establish a tissue diagnosis if this has not already been performed. Reading Location: [id number] CC: Dr. Candy Ortiz MD; Nettie Thurston NP Asic Design Engineer: Signed Normal [facility] Chloride assayOrdered By: Cassandra Espinoza on 11-02-2024 Chloride [Moles/Vol] 103 mmol/L 98-108 [facility] Comprehensive Metabolic Prof ilon 11-02-2024 Albumin [Mass/Vol] 4.5 g/dL Normal 3.5-5.0 [facility] Comment on above: Performed By: #### L 100.0100, L503.6005, L500.4050 ####[facility] [address] [place], [address] Albumin/Globulin [Mass ratio] 1.3 {ratio} Normal 0.9-2.4 [facility] Comment on above: Performed By: #### L 100.0100, L503.6005, L500.4050 ####[facility] [address] [place], [address] ALK PHOS 245 U/L High 35-104 [facility] Comment on above: Performed By: #### L 100.0100, L503.6005, L500.4050 ####[facility] [address] [place], [address] ALT [Catalytic activity/Vol] 29 U/L Normal <=34 [facility] Comment on above: Performed By: #### L 100.0100, L503.6005, L500.4050 ####[facility] [address] [place], [address] AST [Catalytic activity/Vol] 26 U/L Normal <=31 [facility] Comment on above: Performed By: #### L 100.0100, L503.6005, L500.4050 ####[facility] [address] [place], [address] Bilirubin [Mass/Vol] 0.97 mg/dL Normal 0.00-1.30 [facility] Comment on above: Performed By: #### L 100.0100, L503.6005, L500.4050 ####[facility] [address] [place], [address] BUN/CRE 19.5 RATIO Normal 10-20 [facility] Comment on above: Performed By: #### L 100.0100, L503.6005, L500.4050 ####[facility] [address] [place], [address] Calcium [Mass/Vol] 10.7 mg/dL Normal 7.6-11.0 [facility] Comment on above: Performed By: #### L 100.0100, L503.6005, L500.4050 ####[facility] [address] [place], [address] Chloride [Moles/Vol] 103 mmol/L Normal 98-108 [facility] Comment on above: Performed By: #### L 100.0100, L503.6005, L500.4050 ####[facility] [address] [place], [address] CO2 [Moles/Vol] 20.0 mmol/L Low 21.0-32.0 [facility] Comment on above: Performed By: #### L 100.0100, L503.6005, L500.4050 ####[facility] [address] [place], [address] Creatinine [Mass/Vol] 1.30 mg/dL High 0.70-1.20 [facility] Comment on above: Performed By: #### L 100.0100, L503.6005, L500.4050 ####[facility] [address] [place], [address] ECRCL 59.18 ml/min Normal 50-250 [facility] Comment on above: Performed By: #### L 100.0100, L503.6005, L500.4050 ####[facility] [address] [place], [address] GAP 17 High 5-15 [facility] Comment on above: Performed By: #### L 100.0100, L503.6005, L500.4050 ####[facility] [address] [place], [address] GFR/1.73 sq M.predicted among non-blacks MDRD (S/P/Bld) [Vol rate/Area] 49 mL/min/{1.73_m2} Low >60 [facility] Comment on above: Result Comment: mL/m in/1.73m2 CKD-EPI Creatinine Equation (2020) Performed By: #### L 100.0100, L503.6005, L500.4050 ####[facility] [address] [place], [address] Globulin (S) [Mass/Vol] 3.6 g/dL Normal 2.2-4.2 [facility] Comment on above: Performed By: #### L 100.0100, L503.6005, L500.4050 ####[facility] [address] [place], [address] Glucose [Mass/Vol] 109 mg/dL High 70-99 [facility] Comment on above: Performed By: #### L 100.0100, L503.6005, L500.4050 ####[facility] [address] [place], [address] Potassium [Moles/Vol] 4.6 mmol/L Normal 3.3-5.1 [facility] Comment on above: Performed By: #### L 100.0100, L503.6005, L500.4050 ####[facility] [address] [place], [address] Sodium [Moles/Vol] 139 mmol/L Normal 133-145 [facility] Comment on above: Performed By: #### L 100.0100, L503.6005, L500.4050 ####[facility] [address] [place], [address] T PROT 8.1 g/dL Normal 5.9-8.4 [facility] Comment on above: Performed By: #### L 100.0100, L503.6005, L500.4050 ####[facility] [address] [place], [address] Urea nitrogen [Mass/Vol] 25 mg/dL High 4-19 [facility] Comment on above: Performed By: #### L 100.0100, L503.6005, L500.4050 ####[facility] [address] [place], [address] Emergency Department Summary on 11-02-2024 Emergency Department Summary [facility] Medical Records Department [address] [place] [address] Emergency Department Summary 11/02/24 MR#: [id number] Acct: [id number] Name: SARINA DIOP Rep #: [id number] : 1970 54 From: Aundrea Espinoza DO PCP: Dr. Candy Ortiz MD Status:DEP ER Location: ED HPI HPI - GI History of Present Illness Chief Complaint: Constipation Detail of Chief Complaint: Constipation Informant: patient Narrative Narrative: Patient presents to the emergency department with complaint of constipation it has been going on for couple months. Initially states that she was passing some hard patti but now passing only liquid. Patient really denies any change in medications but states she changed her diet about a year ago when she was diagnosed as diabetic and diminished her carbohydrate intake. Apparently had a meeting with the nurse practitioner and her assignment desk assistant office and was prescribed magnesium citrate so she took a bottle of it but did not have any results from that but did have 1 episode of emesis with that. Occasionally has some abdominal cramping. She scheduled for a colonoscopy next month. She has never had a colonoscopy. She denies any blood in her stool. She denies fever. She is currently on Eliquis for history of PEs. [facility] Medical History Bilateral pulmonary embolism Fibromyalgia Palpitations Hypertension Moderate chronic obstructive pulmonary disease Chronic hypoxic respiratory failure Bipolar disorder Schizophrenia Depression Diabetes Chronic pain Smoker BiPAP (biphasic positive airway pressure) dependence Pulmonary embolism Morbid obesity with BMI of 50.0-59.9, adult Hypersomnia Pulmonary infarction Morbid obesity Nicotine dependence, cigarettes, uncomplicated Tobacco abuse Non-healing surgical wound Cellulitis and abscess of neck Upper airway obstruction Bahman's angina Acute respiratory failure Bipolar disorder Anxiety Chronic back pain Home Medications ???Medication ???Instructions ???Recorded ???Last Taken ???Type valacyclovir 1 gram tablet 1,000 mg PO DAILY anti virus 08/1207/29/23 08:00 History 1,000 mg aripiprazole lauroxil 882 mg/3.2 882 mg IM QMONTH mental health 07/28/23 History mL suspension, ext.rel. IM syringe gabapentin 300 mg capsule 300 mg PO TIDCM nerve pain 1 07/28/23 21:00 History bupropion HCl 300 mg 24 hr tablet, 300 mg PO DAILY mental health 07/29/23 08:00 History extended release 300 mg omeprazole 20 mg tablet,delayed 20 mg PO DAILY reflux 09/04/2204/10 08:00 History release 40 mg acetaminophen 325 mg tablet 650 mg (2 x 325 mg) PO Q4H PRN PRN 09/05/22 07/29/23 08:00 Rx Fever, pain -01/25 #0 tabs 650 mg apixaban 5 mg tablet (Eliquis) 5 mg PO Q12H blood thinner 4 07/29/23 08:00 History 5 mg diabetic supplies, miscellan. #1 ea 08/02/23 Unknown Rx cetirizine 10 mg tablet 10 mg PO QDAY 10/27/23 Unknown His tory budesonide 160 mcg-glycopyr 9 2 inh inhalation BID #3 ea 4 Unknown Rx mcg-formot 4.8 mcg/actuation HFA inhaler (Breztri Aerosphere) ipratropium 0.5 mg-albuterol 3 mg 3 ml inhalation Q4H PRN PRN SOB 1 Unknown Rx (2.5 mg base)/3 mL nebulization /OR WHEEZING #180 mL soln metformin 1,000 mg tablet 1,000 mg PO BID 03/07/24 Unknown H istory amlodipine 10 mg tablet 10 mg PO QDAY #30 tabs 04/30/24 Un known Rx lisinopril 20 mg tablet 20 mg PO BID #60 tabs 04/30/24 Unk nown Rx glimepiride 2 mg tablet 2 mg PO BID #60 tabs 07/23/24 Unkn own Rx blood sugar diagnostic (OneTouch #100 ea 08/08/24 Unknown Rx Verio test strips) cholecalciferol (vitamin D3) 25 25 mcg PO QDAY 09/05/24 Unknown Hi story mcg (1,000 unit) capsule cyclobenzaprine 10 mg tablet 10 mg PO TID PRN pain #30 tabs 01/10 Unknown Rx leg brace (PADMINI Ankle Brace) #2 ea 09/24/24 Unknown Rx leg brace (PADMINI Knee Brace) #2 ea 09/24/24 Unknown Rx blood-glucose sensor (FreeStyle #2 ea 10/24/24 [address] Km 3 Plus Sensor device) empagliflozin 25 mg tablet 25 mg PO QAM #30 tabs 10/24/24 Unk nown Rx (Jardiance) semaglutide 0.25 mg or 0.5 mg (2 0.25 mg (0.368 mL) subcut QWEEK #3 10/24/24 Unknown Rx mg/3 mL) subcutaneous pen injector mL (Ozempic) albuterol sulfate 90 mcg/actuation 1 - 2 puff inhalation Q4H PRN IA N 10/29/24 Unknown Rx aerosol inhaler (Ventolin HFA) Wheezing ##1 Allergy/AdvReac Type Severity Reaction Status Date / Time prednisone AdvReac Other Verified 11/02/24 16:52 Sulfa (Sulfonamide AdvReac Rash Verified 11/02/24 16:52 Antibiotics) Family History Other Adopted Surgical History ... Normal [facility] Eosinophil percentageOrdered By: Aundrea Espinoza on 11-02-2024 Eosinophils/100 WBC (Bld) 1.1 % 0-5 [facility] Erythrocyte distribution wid th ratioOrdered By: Remus Ungjonas on 11-02-2024 Erythrocyte distribution width (RBC) [Ratio] 19.1 % High 11.6-14.6 [facility] Erythrocyte distribution wid th standard deviationOrdered By: Remus Olga on 11-02-2024 Erythrocyte distribution width (RBC) [Ratio] 55.8 fl High 35.1-43.9 [facility] Glomerular filtration rate ( GFR) estimation/1.73 sq m using serum, plasma, or whole bOrdered By: Aundrea Espinoza on 11-02-2024 GFR/1.73 sq M.predicted among non-blacks MDRD (S/P/Bld) [Vol rate/Area] 49 mL/min/{1.73_m2} Low >60 [facility] Comment on above: mL/min/1.73m2 CKD-EP I Creatinine Equation (2020) Hematocrit Auto (Bld) [Volum e fraction]Ordered By: Aundrea Espinoza on 11-02-2024 Hematocrit (Bld) [Volume fraction] 51.6 % High 37-47 [facility] Hemoglobin measurementOrdere d By: Aundrea Espinoza on 11-02-2024 Hemoglobin (Bld) [Mass/Vol] 16.1 g/dL High 12.0-15.0 [facility] Immature granulocytes/100 WB C Auto (Bld)Ordered By: Aundrea Espinoza on 11-02-2024 Immature granulocytes/100 WBC (Bld) 0.400 % 0.0-0.9 [facility] Comment on above: IG% - Immature Granu locytes (promyelocytes, myelocytes and metamyelocytes) > 1% indicates that a LEFT SHIFT is Present. Laboratory - Chemistry and C hemistry - challengeOrdered By: Aundrea Espinoza on 11-02-2024 AST [Catalytic activity/Vol] 26 U/L <32 [facility] Lactic Acidon 11-02-2024 Lactate [Moles/Vol] 2.5 mmol/L Invalid Interpretation Code 0.0-2.0 [facility] Comment on above: Order Comment: Y Result Comment: Crit ical Result(s) Called to: Evan KOCH (ER) by: Roberta??Results read back by same. Performed By: #### L 100.0100, L503.6005, L500.4050 ####[facility] [address] [place], [place], [id number] Lactic acid measurementOrder ed By: Aundrea Espinoza on 11-02-2024 Lactate [Moles/Vol] 2.5 mmol/L High 0.0-2.0 [facility] Comment on above: Critical Result(s) C alled to: Evan RN (ER) by: Roberta Results read back by same. MCV (mean corpuscular volume ) determinationOrdered By: Aundrea Espinoza on 11-02-2024 MCV (RBC) [Entitic vol] 85.7 fL 81-99 [facility] Mean corpuscular hemoglobin (MCH) determinationOrdered By: Remus Espinoza on 11-02-2024 MCH (RBC) [Entitic mass] 26.7 pg Low 27.0-32.0 [facility] Mean corpuscular hemoglobin concentration (MCHC) determinationOrdered By: Aundrea Ungjonas on 11-02-2024 MCHC (RBC) [Mass/Vol] 31.2 g/dL Low 32-36 [facility] Mean platelet volume determi nationOrdered By: Aundrea Espinoza on 11-02-2024 Platelet mean volume (Bld) [Entitic vol] 9.4 fL 6.2-12.0 [facility] Monocyte percentageOrdered B y: Aundrea Espinoza on 11-02-2024 Monocytes/100 WBC (Bld) 12.4 % High 0-10 [facility] Neutrophil percentageOrdered By: Aundrea Espinoza on 11-02-2024 Neutrophils/100 WBC (Bld) 55.8 % 47-70 [facility] Nucleated red blood cell per centageOrdered By: Aundrea Espinoza on 11-02-2024 Nucleated RBC/100 WBC (Bld) [Ratio] 0 % 0-5 [facility] Platelet countOrdered By: Cassandra Espinoza on 11-02-2024 Platelets (Bld) [#/Vol] 293 10*3/uL 150-450 [facility] Potassium measurement (mass/ volume)Ordered By: Aundrea Espinoza on 11-02-2024 Potassium (Unsp spec) [Mass/Vol] 4.6 mmol/L 3.3-5.1 [facility] RBC Auto (Bld) [#/Vol]Ordere d By: Aundrea Espinoza on 11-02-2024 RBC (Bld) [#/Vol] 6.02 10*6/uL High 4.2-5.4 [facility] Serum creatinine measurement (mass/volume)Ordered By: Aundrea Espinoza on 11-02-2024 Creatinine [Mass/Vol] 1.30 mg/dL High 0.70-1.20 [facility] Serum globulin measurementOr dered By: Aundrea Espinoza on 11-02-2024 Globulin (S) [Mass/Vol] 3.6 g/dL 2.2-4.2 [facility] Serum glucose measurement (m ass/volume)Ordered By: Aundrea Espinoza on 11-02-2024 Glucose [Mass/Vol] 109 mg/dL High 70-99 [facility] Serum or plasma alanine salazar otransferase (ALT) measurementOrdered By: Aundrea Espinoza on 11-02-2024 ALT [Catalytic activity/Vol] 29 U/L <35 [facility] Serum or plasma albumin ирина urement (mass/volume)Ordered By: Aundrea Espinoza on 11-02-2024 Albumin [Mass/Vol] 4.5 g/dL 3.5-5.0 [facility] Serum or plasma albumin/glob ulin mass ratioOrdered By: Aundrea Espinoza on 11-02-2024 Albumin/Globulin [Mass ratio] 1.3 {ratio} 0.9-2.4 [facility] Serum or plasma alkaline neil sphatase measurementOrdered By: Aundrea Espinoza on 11-02-2024 ALP [Catalytic activity/Vol] 245 U/L High 35-104 [facility] Serum or plasma calcium ирина urement (mass/volume)Ordered By: Aundrea Espinoza on 11-02-2024 Calcium [Mass/Vol] 10.7 mg/dL 7.6-11.0 [facility] Serum or plasma urea nitroge n measurement (mass/volume)Ordered By: Aundrea Espinoza on 11-02-2024 Urea nitrogen [Mass/Vol] 25 mg/dL High 4-19 [facility] Sodium levelOrdered By: Dale Espinoza on 11-02-2024 Sodium [Moles/Vol] 139 mmol/L 133-145 [facility] Total proteinOrdered By: Rem us Espinoza on 11-02-2024 Protein [Mass/Vol] 8.1 g/dL 5.9-8.4 [facility] White blood cell (WBC) count Ordered By: Aundrea Espinoza on 11-02-2024 WBC (Bld) [#/Vol] 10.0 10*3/uL 4.4-11.0 [facility] Endocrinology Visit Reporton 10-24-2024 Endocrinology Visit Report [facility] [address] [place] [address] OFFICE VISIT Date of Service: 10/24/24 MR#: [id number] Acct: [id number] Name: SARINA DIOP Rep #: [id number] : 1970 Provider: LOUISE connolly Age/Sex: 54/F [place] [facility] [place]: Signed Intake Vital Signs 07/23/24 13:13 10/24/24 13:01 Height 5 ft 2 in 5 ft 2 in Weight: 255 lb BMI 46.6 BP 121/81 H Blood Pressure Location Lt brachial Position Sitting Pulse 79 Pulse Source Monitor Pulse Oximetry (%) 90 Oxygen Delivery Method room air Intake Visit Reasons: 3 M FU Chief Complaint: f/u diabetes Eyeglass Fitter Required: No Accompanied by: Self Is patient in pain?: Yes (General ) Pain scale (1-10): 4 Allergies prednisone Adverse Reaction (Verified 10/24/24 12:59) Other Sulfa (Sulfonamide Antibiotics) Adverse Reaction (Verified 10/24/24 12:59) Rash Medications ???Medication ???Instructions ???Recorded ???Confirmed ???Type valacyclovir 1 gram tablet 1,000 mg PO DAILY anti virus 08/1210/24/24 History aripiprazole lauroxil 882 mg/3.2 882 mg IM QMONTH mental health 10/24/24 History mL suspension, ext.rel. IM syringe gabapentin 300 mg capsule 300 mg PO TIDCM nerve pain 1 10/24/24 History bupropion HCl 300 mg 24 hr tablet, 300 mg PO DAILY mental health 10/24/24 History extended release omeprazole 20 mg tablet,delayed 20 mg PO DAILY reflux 09/04/2201/10 History release acetaminophen 325 mg tablet 650 mg (2 x 325 mg) PO Q4H PRN PRN 09/05/22 10/24/24 Rx Fever, pain -01/25 #0 tabs apixaban 5 mg tablet (Eliquis) 5 mg PO Q12H blood thinner 4 10/24/24 History diabetic supplies, miscellan. #1 ea 08/02/23 10/24/24 Rx cetirizine 10 mg tablet 10 mg PO QDAY 10/27/23 10/24/24 Hi story albuterol sulfate 90 mcg/actuation 1 - 2 puff inhalation Q4H PRN IA N 02/06/24 10/24/24 Rx aerosol inhaler (Ventolin HFA) Wheezing ##1 budesonide 160 mcg-glycopyr 9 2 inh inhalation BID #3 ea 4 10/24/24 Rx mcg-formot 4.8 mcg/actuation HFA inhaler (Breztri Aerosphere) ipratropium 0.5 mg-albuterol 3 mg 3 ml inhalation Q4H PRN PRN SOB 1 10/24/24 Rx (2.5 mg base)/3 mL nebulization /OR WHEEZING #180 mL soln metformin 1,000 mg tablet 1,000 mg PO BID 03/07/24 10/24/24 History amlodipine 10 mg tablet 10 mg PO QDAY #30 tabs 04/30/24 Rx lisinopril 20 mg tablet 20 mg PO BID #60 tabs 04/30/2401/10 Rx hydrochlorothiazide 12.5 mg tablet 12.5 mg PO QAM #30 tabs 05/10/24 10/24/24 Rx glimepiride 2 mg tablet 2 mg PO BID #60 tabs 07/23/2401/10 Rx blood sugar diagnostic (OneTouch #100 ea 08/08/24 10/24/24 Rx Verio test strips) cholecalciferol (vitamin D3) 25 25 mcg PO QDAY 09/05/24 10/24/24 H istory mcg (1,000 unit) capsule cyclobenzaprine 10 mg tablet 10 mg PO TID PRN pain #30 tabs 01/1010/24/24 Rx leg brace (PADMINI Ankle Brace) #2 ea 09/24/24 10/24/24 Rx leg brace (PADMINI Knee Brace) #2 ea 09/24/24 10/24/24 Rx blood-glucose sensor (FreeStyle #2 ea 10/24/24 10/24/24 [address] Km 3 Plus Sensor device) empagliflozin 25 mg tablet 25 mg PO QAM #30 tabs 10/24/2401/10 Rx (Jardiance) semaglutide 0.25 mg or 0.5 mg (2 0.25 mg (0.368 mL) subcut QWEEK #3 10/24/24 10/24/24 Rx mg/3 mL) subcutaneous pen injector mL (Ozempic) PFSH Medical History Bilateral pulmonary embolism Fibromyalgia Palpitations Hypertension Moderate chronic obstructive pulmonary disease Chronic hypoxic respiratory failure Bipolar disorder Schizophrenia Depression Diabetes Chronic pain Smoker BiPAP (biphasic positive airway pressure) dependence Pulmonary embolism Morbid obesity with BMI of 50.0-59.9, adult Hypersomnia Pulmonary infarction Morbid obesity Nicotine dependence, cigarettes, uncomplicated Tobacco abuse Non-healing surgical wound Cellulitis and abscess of neck Upper airway obstruction Bahman's angina Acute respiratory failure Bipolar disorder Anxiety Chronic back pain Surgical History History of mandibular surgery History of adenoidectomy History of cholecystectomy Family History Other Adopted Social History household members: none current occupational status: disabled 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 Normal [facility] Laboratory - Hematology and Cell countsOrdered By: Brandee Weems on 10-24-2024 HbA1c (Bld) [Mass fraction] 7.6 % High 4.2-6.3 [facility] Abdomen Single Viewon 2024 Abdomen Single View [facility] Imaging Services [address] [place], [place] [address] Abdomen Single View MR#: [id number] Acct: [id number] Name: SARINA DIOP Rep #: [id number] : 1970 F 54 From: Simone Hirsch MD PCP: Dr. Candy Ortiz MD Status: REG CLI Study: Abdomen Single View Date of Exam: 10/23/24 Exam# [id number] Ordering Dr: Teagan Estrada EXAM: XR Abdomen, 1 View CLINICAL INDICATION: CONSTIPATION TECHNIQUE: Frontal supine view of the abdomen/pelvis. COMPARISON: No relevant prior studies available. FINDINGS: GASTROINTESTINAL TRACT: Fecal retention in the colon consistent with constipation. No dilation. BONES/JOINTS: Unremarkable. No acute fracture. RAD/Abdomen Single View IMPRESSION: Fecal retention in the colon consistent with constipation. Reading Location: [facility] CC: LOUISE Estrada; Dr. 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 [address] OFFICE VISIT Date of Service: 10/23/24 MR#: [id number] Acct: [id number] Name: SARINA DIOP Rep #: [id number] : 1970 Provider: LOUISE snadhu Age/Sex: 54/F Location: [facility] [place] Status: Signed Intake Intake Visit Reasons: fu Allergies prednisone Adverse Reaction (Verified 10/23/24 10:32) Other Sulfa (Sulfonamide Antibiotics) Adverse Reaction (Verified 10/23/24 10:32) Rash Medications ???Medication ???Instructions ???Recorded ???Confirmed ???Type valacyclovir 1 gram tablet 1,000 mg PO DAILY anti virus 08/1210/23/24 History aripiprazole lauroxil 882 mg/3.2 882 [facility] 10/23/24 History mL suspension, ext.rel. IM syringe gabapentin 300 mg capsule 300 mg PO TIDCM nerve pain 07/02/ 1 10/23/24 History bupropion HCl 300 mg 24 hr tablet, 300 mg PO DAILY mental health 10/23/24 History extended release omeprazole 20 mg tablet,delayed 20 mg PO DAILY reflux 09/04/2212/10 History release acetaminophen 325 mg tablet 650 mg (2 x 325 mg) PO Q4H PRN PRN 09/05/22 10/23/24 Rx Fever, pain -01/25 #0 tabs apixaban 5 mg tablet (Eliquis) 5 mg PO Q12H blood thinner 4 10/23/24 History diabetic supplies, miscellan. #1 ea 08/02/23 10/23/24 Rx cetirizine 10 mg tablet 10 mg PO QDAY 10/27/23 10/23/24 Hi story albuterol sulfate 90 mcg/actuation 1 - 2 puff inhalation Q4H PRN IA N 02/06/24 10/23/24 Rx aerosol inhaler (Ventolin HFA) Wheezing ##1 budesonide 160 mcg-glycopyr 9 2 inh inhalation BID #3 ea 4 10/23/24 Rx mcg-formot 4.8 mcg/actuation HFA inhaler (Breztri Aerosphere) ipratropium 0.5 mg-albuterol 3 mg 3 ml inhalation Q4H PRN PRN SOB 1 10/23/24 Rx (2.5 mg base)/3 mL nebulization /OR WHEEZING #180 mL soln metformin 1,000 mg tablet 1,000 mg PO BID 03/07/24 10/23/24 History amlodipine 10 mg tablet 10 mg PO QDAY #30 tabs 04/30/24 Rx lisinopril 20 mg tablet 20 mg PO BID #60 tabs 04/30/2412/10 Rx hydrochlorothiazide 12.5 mg tablet 12.5 mg PO QAM #30 tabs 05/10/24 10/23/24 Rx empagliflozin 10 mg tablet 10 mg PO QDAY 07/23/24 10/23/24 Hi story (Jardiance) glimepiride 2 mg tablet 2 mg PO BID #60 tabs 07/23/2412/10 Rx semaglutide 0.25 mg or 0.5 mg (2 0.25 mg (0.368 mL) subcut QWEEK #3 07/23/24 10/23/24 Rx mg/3 mL) subcutaneous pen injector mL (Ozempic) blood sugar diagnostic (OneTouch #100 ea 08/08/24 10/23/24 Rx Verio test strips) cholecalciferol (vitamin D3) 25 25 mcg PO QDAY 09/05/24 10/23/24 H istory mcg (1,000 unit) capsule cyclobenzaprine 10 mg tablet 10 mg PO TID PRN pain #30 tabs 01/1010/23/24 Rx leg brace (PADMINI Ankle Brace) #2 ea 09/24/24 10/23/24 Rx leg brace (PADMINI Knee Brace) #2 ea 09/24/24 10/23/24 Rx PFSH Medical History Bilateral pulmonary embolism Fibromyalgia Palpitations Hypertension Moderate chronic obstructive pulmonary disease Chronic hypoxic respiratory failure Bipolar disorder Schizophrenia Depression Diabetes Chronic pain Smoker BiPAP (biphasic positive airway pressure) dependence Pulmonary embolism Morbid obesity with BMI of 50.0-59.9, adult Hypersomnia Pulmonary infarction Morbid obesity Nicotine dependence, cigarettes, uncomplicated Tobacco abuse Non-healing surgical wound Cellulitis and abscess of neck Upper airway obstruction Bahman's angina Acute respiratory failure Bipolar disorder Anxiety Chronic back pain Surgical History History of mandibular surgery History of adenoidectomy History of cholecystectomy Family History Other Adopted Social History household members: none current occupational status: disabled 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 2.7.25 OV establishment with [facility] in order to obtain a colonoscopy s/p concerns on a recent PET scan. She reports small pulmonary findings on xray in combination w/ being a 1ppd smoker x20+ yrs prompted a complete PET scan for investigation. Radiologist reading PET scan recommended direct visualization of rectal vault d/t localized attenuation of contrast in this area. She reports having GERD controlled w/daily omeprazole, abdom (more content not included)... Normal [facility] Microalb:Creat Ratio,Random URon 10-05-2024 MALB:CREAT 92.6 mg/g CRE Normal [facility] Comment on above: Order Comment: HOMERO GARCIA ORDERED CMPDNP. JON ORDERED ALL OTHER TESTS Result Comment: AMENDED REPORT 10/05/2403 MALB:CREAT previously reported as: 926.2 mg/g CRE Performed By: #### L 500.4100, L501.9520, L509.1000, L506.1001, L502.0250, L500.4050 ####[facility] [address] [place], [place], [address] Internal Medicine Office Vis iton 09-24-2024 Internal Medicine Office Visit [facility] [address] [place] [address] OFFICE VISIT Date of Service: 09/24/24 MR#: [id number] Acct: [id number] Name: SARINA DIOP Rep #: [id number] : 1970 Provider: Dr. Candy sinha MD Age/Sex: 54/F Location: [facility] [place] Status: Signed Intake Vital Signs 09/05/24 08:20 09/24/24 10:00 09/24/24 10:04 Height 5 ft 2 in 5 ft 2 in Weight: 260 lb BMI 47.5 BP 142/86 H Blood Pressure Location Rt brachial Position Sitting Respiration 21 H Pulse 83 Pulse Source Monitor Temp 97.8 F Temp Source Temporal Pulse Oximetry (%) 94 Oxygen Delivery Method room air Intake Visit Reasons: ASSESSMENT FROM FALL Chief Complaint: ASESSMENT FROM FALL Is patient in pain?: Yes (6 kneed,ankles lower legs ) Allergies prednisone Adverse Reaction (Verified 09/24/24 10:00) Other Sulfa (Sulfonamide Antibiotics) Adverse Reaction (Verified 09/24/24 10:00) Rash Medications ???Medication ???Instructions ???Recorded ???Confirmed ???Type valacyclovir 1 gram tablet 1,000 mg PO DAILY anti virus 08/1209/24/24 History aripiprazole lauroxil 882 mg/3.2 882 mg IM QMONTH mental health 09/24/24 History mL suspension, ext.rel. IM syringe gabapentin 300 mg capsule 300 mg PO TIDCM nerve pain 1 09/24/24 History bupropion HCl 300 mg 24 hr tablet, 300 mg PO DAILY mental health 09/24/24 History extended release omeprazole 20 mg tablet,delayed 20 mg PO DAILY reflux 09/04/2201/10 History release acetaminophen 325 mg tablet 650 mg (2 x 325 mg) PO Q4H PRN PRN 09/05/22 09/24/24 Rx Fever, pain -01/25 #0 tabs apixaban 5 mg tablet (Eliquis) 5 mg PO Q12H blood thinner 4 09/24/24 History diabetic supplies, miscellan. #1 ea 08/02/23 09/24/24 Rx cetirizine 10 mg tablet 10 mg PO QDAY 10/27/23 09/24/24 Hi story albuterol sulfate 90 mcg/actuation 1 - 2 puff inhalation Q4H PRN IA N 02/06/24 09/24/24 Rx aerosol inhaler (Ventolin HFA) Wheezing ##1 budesonide 160 mcg-glycopyr 9 2 inh inhalation BID #3 ea 4 09/24/24 Rx mcg-formot 4.8 mcg/actuation HFA inhaler (Breztri Aerosphere) ipratropium 0.5 mg-albuterol 3 mg 3 ml inhalation Q4H PRN PRN SOB 1 09/24/24 Rx (2.5 mg base)/3 mL nebulization /OR WHEEZING #180 mL soln metformin 1,000 mg tablet 1,000 mg PO BID 03/07/24 09/24/24 History amlodipine 10 mg tablet 10 mg PO QDAY #30 tabs 04/30/24 Rx lisinopril 20 mg tablet 20 mg PO BID #60 tabs 04/30/2401/10 Rx hydrochlorothiazide 12.5 mg tablet 12.5 mg PO QAM #30 tabs 05/10/24 09/24/24 Rx empagliflozin 10 mg tablet 10 mg PO QDAY 07/23/24 09/24/24 Hi story (Jardiance) glimepiride 2 mg tablet 2 mg PO BID #60 tabs 07/23/2401/10 Rx semaglutide 0.25 mg or 0.5 mg (2 0.25 mg (0.368 mL) subcut QWEEK #3 07/23/24 09/24/24 Rx mg/3 mL) subcutaneous pen injector mL (Ozempic) blood sugar diagnostic (OneTouch #100 ea 08/08/24 09/24/24 Rx Verio test strips) cholecalciferol (vitamin D3) 25 25 mcg PO QDAY 09/05/24 09/24/24 H istory mcg (1,000 unit) capsule cyclobenzaprine 10 mg tablet 10 mg PO TID PRN pain #30 tabs 01/1009/24/24 Rx leg brace (PADMINI Ankle Brace) #2 ea 09/24/24 09/24/24 Rx leg brace (PADMINI Knee Brace) #2 ea 09/24/24 09/24/24 Rx Nurse's Note: pt reports she fell and landed on knees pt states she has a pain of 6 in knees and ankles, Bilat lower legs PFSH Medical History Bilateral pulmonary embolism Fibromyalgia Palpitations Hypertension Moderate chronic obstructive pulmonary disease Chronic hypoxic respiratory failure Bipolar disorder Schizophrenia Depression Diabetes Chronic pain Smoker BiPAP (biphasic positive airway pressure) dependence Pulmonary embolism Morbid obesity with BMI of 50.0-59.9, adult Hypersomnia Pulmonary infarction Morbid obesity Nicotine dependence, cigarettes, uncomplicated Tobacco abuse Non-healing surgical wound Cellulitis and abscess of neck Upper airway obstruction Bahman's angina Acute respiratory failure Bipolar disorder Anxiety Chronic back pain Surgical History History of mandibular surgery History of adenoidectomy History of cholecystectomy Family History Other Adopted Social History household members: none current occupational status: disabled 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 Normal [facility] Pulmonary Visit Reporton Pulmonary Visit Report [facility] [address] [place] [address] OFFICE VISIT Date of Service: 09/05/24 MR#: [id number] Acct: [id number] Name: SARINA DIOP Rep #: [id number] : 1970 Provider: Nettie Thurston NP Age/Sex: 53/F Location: [facility] [place].[facility] Status: Signed Assessment and Plan Assessment and Plan (1) Multiple lung nodules: Status: Chronic Comment: Negative PET 03/2024 Plan: High risk patient, no known malignancy elsewhere in the body at this point but has not undergone colonoscopy as previously recommended as there was uptake noted in the lower pelvis with concern for the rectum/rectal vault on previous pet imaging. Most recent chest CT continues to show presence of multiple nodules, right lower lobe nodule now measuring 2.6 x 2.1 cm despite improved respiratory symptoms and recovery from pneumonia. This still could be underlying malignancy even though the pet scan did not show facilitated uptake in her chest. The patient is unable to have CT guided lung biopsy at [facility] and has been referred to [facility]. I have discussed with her the importance of CT guided biopsy. She has has difficultly with transportation and plans to determine if she can facilitate transportation for this referral. If she is unable to proceed with biopsy at this time then a 3- month chest CT will be needed to follow this nodule. This plan was discussed with Dr. Oreilly on various occasions and referral to [facility] for CT-guided lung biopsy continues to be the recommendation at this time. (2) Moderate chronic obstructive pulmonary disease: Status: Chronic Plan: COPD is controlled today and stable. She is not exacerbating. She is to continue with her triple therapy, Breztri inhaler. Because the patient forgot to take her inhaler this morning, I have pr ovided her with a sample to use in the office today. The patient did take 2 inhalations and 1 breath for the demonstration. I have asked her to utilize her inhaler by taking 1 inhalation and holding her breath with slowly exhaling then repeating this process. I am concerned that she is not getting the full dose of her inhaler in the manner that she was previously using it. Use albuterol as needed. Call for worsening respiratory symptoms. (3) CAMMIE (obstructive sleep apnea): Status: Chronic Plan: Sleep apnea is not controlled today. Reinstitute use of BiPAP device, I have encouraged her to move the device out into her living room. I have recommended that she begin use during naps to help her become acclimated to the device again. I have discussed the importance of treating sleep apnea. (4) Schizophrenia: Status: Chronic Qualifiers: Schizophrenia type: unspecified Qualified Code(s): F20.9 - Schizophrenia, unspecified Plan: Complicates exam, plan, care and prognosis. (5) Smoking greater than 20 pack years: Status: Chronic Comment: current smoker Plan: The patient is asked to proceed with complete smoking cessation. This includes all vapor products. (6) Bilateral pulmonary embolism: Status: Acute Plan: The patient had bilateral pulmonary embolism first identified in August 2022. The plan was to at least utilize Eliquis for 6 months. The patient did have a echocardiogram from July 2023 which showed a thrombus in her right atrium. The repeat echocardiogram from March 2024 did not suggest that the thrombus was still. The patient has never been told to discontinue Eliquis, she has continued with routine use since August 2022. I will consider repeating a CTA in the future to determine if embolism is resolved. Patient first needs to follow up for nodule biopsy. (7) Pulmonary hypertension: Status: Acute Plan: PA pressure is 60 mmHg from 03/2024. The pressure is likely still elevated as she is not compliant with treatment for obstructive sleep apnea. The patient has a history of COPD along with pulmonary embolism which could be contributing to the pulmonary hypertension. I am not convinced that pulmonary hypertension is primary at this time however the patient has not undergone a right heart catheterization. I have asked for her to return to compliant use of PAP therapy. HPI HPI Comments Details: This 53-year-old female patient presents to the office today for follow-up. She is ambulatory and currently on room air. She had transportation difficulties and has had to reschedule this appointment 3 times. Since last visit she has not been treated for exacerbation by antibiotics or oral prednisone. She has not been seen in the ER or urgent care. Due to the PET scan showing facilitated uptake in the lower pelvic with associated rectum/rectal vault findings, it has been recommended that the patient undergo colonoscopy. She has cancelled her procedure. She reports that she does not have a caregiver after the procedure. She is working to have this testin (more content not included)... Normal [facility] Cardiology Visit Reporton Cardiology Visit Report [facility] [address] [place] [address] OFFICE VISIT Date of Service: 08/17/24 MR#: [id number] Acct: [id number] Name: SARINA DIOP Rep #: [id number] : 1970 Provider: LOUISE gallegos Age/Sex: 53/F Location: [facility] [place] Status: Signed HPI HPI History of Present Illness Details: Patient is a 53-year-old white female who presents today for cardiovascular follow-up visit. She was referred to our office for palpitations. She does have a history of COPD and obstructive sleep apnea treated with BiPAP she also has a history of schizophrenia. The patient was evaluated back in July 2023 when she presented with profound shortness of breath and a CTA was consistent with a left lower lobe pulmonary densities suggestive of infarctions her understanding was this was related to pulmonary emboli. Her echocardiogram done August 01, 2023 showed an EF of 65% with no regional wall motion abnormality mild to moderate global right ventricular systolic dysfunction and a mobile mass in the right atrium. Pulmonary artery systolic pressure was estimated at 60 consistent with moderate pulmonary hypertension. Her echocardiogram on 03/29/2024 demonstrated ejection fraction of 55%, and severely dilated right ventricle. The mass in the right atrium was not seen. From a cardiac standpoint, the patient is doing well. She denies any palpitations, chest pain, pressure or heaviness. She does have SOB-this is nothing new or worsening. She denies Orthopnea, and PND. She does not have bleeding issues; no blood in urine, stool, or nosebleeds. She denies any decrease in energy level, myalgias, or claudication. She does not have edema, or sudden weight gain. She denies lightheadedness, dizziness, syncopal or near syncopal episodes, and headaches. Intake Vital Signs 03/07/24 10:34 08/13/24 13:00 08/17/24 11:19 Height 5 ft 2 in 5 ft 2 in 5 ft 2 in Weight: 254 lb BMI 46.4 BP 136/85 H Blood Pressure Location Rt brachial Position Sitting Respiration 28 H Pulse 79 Pulse Oximetry (%) 91 Oxygen Delivery Method room air Comment Reports O2 drops with activity. Pulmonary following. Intake Visit Reasons: 6 M FU Eyeglass Fitter Required: No Accompanied by: Self Is patient in pain?: Yes (low back, b/l knee) Pain scale (1-10): 3 Allergies prednisone Adverse Reaction (Verified 08/17/24 14:34) Other Sulfa (Sulfonamide Antibiotics) Adverse Reaction (Verified 08/17/24 14:34) Rash Medications ???Medication ???Instructions ???Recorded ???Confirmed ???Type valacyclovir 1 gram tablet 1,000 mg PO DAILY anti virus 08/1208/17/24 History aripiprazole lauroxil 882 mg/3.2 882 mg IM QMONTH mental health 08/17/24 History mL suspension, ext.rel. IM syringe cholecalciferol (vitamin D3) 25 5,000 unit PO DAILY vitamin 08/17/24 History mcg (1,000 unit) tablet gabapentin 300 mg capsule 300 mg PO TIDCM nerve pain 1 08/17/24 History bupropion HCl 300 mg 24 hr tablet, 300 mg PO DAILY mental health 08/17/24 History extended release omeprazole 20 mg tablet,delayed 20 mg PO DAILY reflux 09/04/2206/12 History release acetaminophen 325 mg tablet 650 mg (2 x 325 mg) PO Q4H PRN PRN 09/05/22 08/17/24 Rx Fever, pain 1-01/25 #0 tabs apixaban 5 mg tablet (Eliquis) 5 mg PO Q12H blood thinner 4 08/17/24 History diabetic supplies, miscellan. #1 ea 08/02/23 08/17/24 Rx cetirizine 10 mg tablet 10 mg PO QDAY 10/27/23 08/17/24 Hi story albuterol sulfate 90 mcg/actuation 1 - 2 puff inhalation Q4H PRN IA N 02/06/24 08/17/24 Rx aerosol inhaler (Ventolin HFA) Wheezing ##1 budesonide 160 mcg-glycopyr 9 2 inh inhalation BID #3 ea 4 08/17/24 Rx mcg-formot 4.8 mcg/actuation HFA inhaler (Breztri Aerosphere) ipratropium 0.5 mg-albuterol 3 mg 3 ml inhalation Q4H PRN PRN SOB 1 08/17/24 Rx (2.5 mg base)/3 mL nebulization /OR WHEEZING #180 mL soln metformin 1,000 mg tablet 1,000 mg PO BID 03/07/24 08/17/24 History amlodipine 10 mg tablet 10 mg PO QDAY #30 tabs 04/30/24 Rx lisinopril 20 mg tablet 20 mg PO BID #60 tabs 04/30/2406/12 Rx hydrochlorothiazide 12.5 mg tablet 12.5 mg PO QAM #30 tabs 05/10/24 08/17/24 Rx empagliflozin 10 mg tablet 10 mg PO QDAY 07/23/24 08/17/24 Hi story (Jardiance) glimepiride 2 mg tablet 2 mg PO BID #60 tabs 07/23/24 0506/12 Rx semaglutide 0.25 mg or 0.5 mg (2 0.25 mg (0.368 mL) subcut QWEEK #3 07/23/24 08/17/24 Rx mg/3 mL) subcutaneous pen injector mL (Ozempic) blood sugar diagnostic (OneTouch #100 ea 08/08/24 08/17/24 Rx Verio test strips) Ejection fraction %: 55 Nurse's Note: Upcoming lung nodules biopsy. [facility] Medical History (Reviewed 05 (more content not included)... Normal [facility] Internal Medicine Office Vis corina 08-12-2024 Internal Medicine Office Visit [facility] [address] [place] [address] OFFICE VISIT Date of Service: 08/13/24 MR#: [id number] Acct: [id number] Name: SARINA DIOP Rep #: [id number] : 1970 Provider: Dr. Candy sinha MD Age/Sex: 53/F Location: [facility] [place].[facility] Status: Signed Intake Vital Signs 04/03/24 12:01 07/31/24 07:32 08/13/24 13:00 08/13/24 16:07 Height 5 ft 2 in 5 ft 2 in 5 ft 2 in Weight: 258 lb BMI 47.2 BP 108/68 Blood Pressure Location Rt brachial Position Sitting Respiration 20 H Pulse 77 Pulse Source Monitor Temp 96.2 F L Temp Source Temporal Pulse Oximetry (%) 88 92 Oxygen Delivery Method room air room air Intake Visit Reasons: EST [facility] [place] [facility] Chief Complaint: establishing Eyeglass Fitter Required: No Accompanied by: Self Is patient in pain?: No Allergies prednisone Adverse Reaction (Verified 08/13/24 12:32) Other Sulfa (Sulfonamide Antibiotics) Adverse Reaction (Verified 08/13/24 12:32) Rash Medications ???Medication ???Instructions ???Recorded ???Confirmed ???Type valacyclovir 1 gram tablet 1,000 mg PO DAILY anti virus 08/1208/13/24 History aripiprazole lauroxil 882 mg/3.2 882 mg IM QMONTH mental health 08/13/24 History mL suspension, ext.rel. IM syringe cholecalciferol (vitamin D3) 25 5,000 unit PO DAILY vitamin 08/13/24 History mcg (1,000 unit) tablet gabapentin 300 mg capsule 300 mg PO TIDCM nerve pain 1 08/13/24 History bupropion HCl 300 mg 24 hr tablet, 300 mg PO DAILY mental health 08/13/24 History extended release omeprazole 20 mg tablet,delayed 20 mg PO DAILY reflux 09/04/22 History release acetaminophen 325 mg tablet 650 mg (2 x 325 mg) PO Q4H PRN PRN 09/05/22 08/13/24 Rx Fever, pain 1-10/10 #0 tabs apixaban 5 mg tablet (Eliquis) 5 mg PO Q12H blood thinner 4 08/13/24 History diabetic supplies, miscellan. #1 ea 08/02/23 08/13/24 Rx cetirizine 10 mg tablet 10 mg PO QDAY 10/27/23 08/13/24 Hi story albuterol sulfate 90 mcg/actuation 1 - 2 puff inhalation Q4H PRN IA N 02/06/24 08/13/24 Rx aerosol inhaler (Ventolin HFA) Wheezing ##1 budesonide 160 mcg-glycopyr 9 2 inh inhalation BID #3 ea 4 08/13/24 Rx mcg-formot 4.8 mcg/actuation HFA inhaler (Breztri Aerosphere) ipratropium 0.5 mg-albuterol 3 mg 3 ml inhalation Q4H PRN PRN SOB 1 08/13/24 Rx (2.5 mg base)/3 mL nebulization /OR WHEEZING #180 mL soln metformin 1,000 mg tablet 1,000 mg PO BID 03/07/24 08/13/24 History amlodipine 10 mg tablet 10 mg PO QDAY #30 tabs 04/30/24 Rx lisinopril 20 mg tablet 20 mg PO BID #60 tabs 04/30/24 Rx hydrochlorothiazide 12.5 mg tablet 12.5 mg PO QAM #30 tabs 05/10/24 08/13/24 Rx empagliflozin 10 mg tablet 10 mg PO QDAY 07/23/24 08/13/24 Hi story (Jardiance) glimepiride 2 mg tablet 2 mg PO BID #60 tabs 07/23/2407/18 Rx semaglutide 0.25 mg or 0.5 mg (2 0.25 mg (0.368 mL) subcut QWEEK #3 07/23/24 08/13/24 Rx mg/3 mL) subcutaneous pen injector mL (Ozempic) blood sugar diagnostic (OneTouch #100 ea 08/08/24 08/13/24 Rx Verio test strips) Have you fallen in the past year?: No PFSH Medical History (Updated 08/13/24 @ 16:[address] Candy Ortiz MD) Fibromyalgia Palpitations Hypertension Moderate chronic obstructive pulmonary disease Chronic hypoxic respiratory failure Bipolar disorder Schizophrenia Depression Diabetes Chronic pain Smoker BiPAP (biphasic positive airway pressure) dependence Pulmonary embolism Morbid obesity with BMI of 50.0-59.9, adult Hypersomnia Pulmonary infarction Bilateral pulmonary embolism Morbid obesity Nicotine dependence, cigarettes, uncomplicated Tobacco abuse Non-healing surgical wound Cellulitis and abscess of neck Upper airway obstruction Bahman's angina Acute respiratory failure Bipolar disorder Anxiety Chronic back pain Surgical History (Updated 08/13/24 @ 13:[address] Candy Ortiz MD) History of mandibular surgery History of adenoidectomy History of cholecystectomy Family History (Updated 08/13/24 @ 13:[address] Candy Ortiz MD) Other Adopted Social History (Updated 08/13/24 @ 13:[address] 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 1. Little interest or ple (more content not included)... Normal [facility] Activated partial thrombopla stin time (aPTT) in platelet poor plasma by coagulation aOrdered By: HOMERO Thurston on 08-10-2024 aPTT Coag (PPP) [Time] 27.4 s 24.1-36.2 [facility] Anion gap in Serum or Plasma Ordered By: Brandee Weems on 08-10-2024 Anion gap [Moles/Vol] 16 mmol/L High 5-15 [facility] BUN/creatinine ratioOrdered By: Brandee Weems on 08-10-2024 Urea nitrogen/Creatinine [Mass ratio] 25.7 mg/mg High 10-20 [facility] Bilirubin, totalOrdered By: Brandee Weems on 08-10-2024 Bilirubin [Mass/Vol] 0.53 mg/dL 0.00-1.30 [facility] Calculated very low density lipoprotein (VLDL) cholesterol measurementOrdered By: Brandee Weems on 08-10-2024 Calculated very low density lipoprotein (VLDL) cholesterol measurement 30 mg/dL 5-40 [facility] Carbon dioxide, total [Moles /volume] in Central venous bloodOrdered By: Brandee Weems on 08-10-2024 CO2 [Moles/Vol] 18.3 mmol/L Low 21.0-32.0 [facility] Chloride assayOrdered By: Me milla Weems on 08-10-2024 Chloride [Moles/Vol] 106 mmol/L 98-108 [facility] Comprehensive Metabolic Prof ilon 08-10-2024 Albumin [Mass/Vol] 4.0 g/dL Normal 3.5-5.0 [facility] Comment on above: Order Comment: HOMERO GARCIA ORDERED CMPDNP. JON ORDERED ALL OTHER TESTS Performed By: #### L 500.4100, L501.9520, L509.1000, L506.1001, L502.0250, L500.4050 ####[facility] [address] [place], [address] Albumin/Globulin [Mass ratio] 1.2 {ratio} Normal 0.9-2.4 [facility] Comment on above: Order Comment: HOMERO GARCIA ORDERED CMPDNP. JON ORDERED ALL OTHER TESTS Performed By: #### L 500.4100, L501.9520, L509.1000, L506.1001, L502.0250, L500.4050 ####[facility] [address] [place], [address] ALK PHOS 237 U/L High 35-104 [facility] Comment on above: Order Comment: HOMERO GARCIA ORDERED CMPDNP. JON ORDERED ALL OTHER TESTS Performed By: #### L 500.4100, L501.9520, L509.1000, L506.1001, L502.0250, L500.4050 ####[facility] [address] [place], [address] ALT [Catalytic activity/Vol] 28 U/L Normal <=34 [facility] Comment on above: Order Comment: HOMERO GARCIA ORDERED CMPDNP. JON ORDERED ALL OTHER TESTS Performed By: #### L 500.4100, L501.9520, L509.1000, L506.1001, L502.0250, L500.4050 ####[facility] [address] [place], [address] AST [Catalytic activity/Vol] 26 U/L Normal <=31 [facility] Comment on above: Order Comment: HOMERO GARCIA ORDERED CMPDNP. JON ORDERED ALL OTHER TESTS Performed By: #### L 500.4100, L501.9520, L509.1000, L506.1001, L502.0250, L500.4050 ####[facility] [address] [place], [address] Bilirubin [Mass/Vol] 0.53 mg/dL Normal 0.00-1.30 [facility] Comment on above: Order Comment: HOMERO GARCIA ORDERED CMPDNP. JON ORDERED ALL OTHER TESTS Performed By: #### L 500.4100, L501.9520, L509.1000, L506.1001, L502.0250, L500.4050 ####[facility] [address] [place], [address] BUN/CRE 25.7 RATIO High 10-20 [facility] Comment on above: Order Comment: HOMERO GARCIA ORDERED CMPDNP. JON ORDERED ALL OTHER TESTS Performed By: #### L 500.4100, L501.9520, L509.1000, L506.1001, L502.0250, L500.4050 ####[facility] [address] [place], [address] Calcium [Mass/Vol] 9.0 mg/dL Normal 7.6-11.0 [facility] Comment on above: Order Comment: HOMERO GARCIA ORDERED CMPDNP. JON ORDERED ALL OTHER TESTS Performed By: #### L 500.4100, L501.9520, L509.1000, L506.1001, L502.0250, L500.4050 ####[facility] [address] [place], [address] Chloride [Moles/Vol] 106 mmol/L Normal 98-108 [facility] Comment on above: Order Comment: HOMERO GARCIA ORDERED CMPDNP. JON ORDERED ALL OTHER TESTS Performed By: #### L 500.4100, L501.9520, L509.1000, L506.1001, L502.0250, L500.4050 ####[facility] [address] [place], [address] CO2 [Moles/Vol] 18.3 mmol/L Low 21.0-32.0 [facility] Comment on above: Order Comment: HOMERO GARCIA ORDERED CMPDNP. JON ORDERED ALL OTHER TESTS Performed By: #### L 500.4100, L501.9520, L509.1000, L506.1001, L502.0250, L500.4050 ####[facility] [address] [place], [address] Creatinine [Mass/Vol] 1.38 mg/dL High 0.70-1.20 [facility] Comment on above: Order Comment: HOMERO GARCIA ORDERED CMPDNP. JON ORDERED ALL OTHER TESTS Performed By: #### L 500.4100, L501.9520, L509.1000, L506.1001, L502.0250, L500.4050 ####[facility] [address] [place], [address] GAP 16 High 5-15 [facility] Comment on above: Order Comment: HOMERO GARCIA ORDERED CMPDNP. JON ORDERED ALL OTHER TESTS Performed By: #### L 500.4100, L501.9520, L509.1000, L506.1001, L502.0250, L500.4050 ####[facility] [address] [place], [address] GFR/1.73 sq M.predicted among non-blacks MDRD (S/P/Bld) [Vol rate/Area] 46 mL/min/{1.73_m2} Low >60 [facility] Comment on above: Order Comment: HOMERO GARCIA ORDERED CMPDNP. JON ORDERED ALL OTHER TESTS Result Comment: mL/m in/1.73m2 CKD-EPI Creatinine Equation (2020) Performed By: #### L 500.4100, L501.9520, L509.1000, L506.1001, L502.0250, L500.4050 ####[facility] [address] [place], [address] Globulin (S) [Mass/Vol] 3.3 g/dL Normal 2.2-4.2 [facility] Comment on above: Order Comment: HOMERO GARCIA ORDERED CMPDNP. JON ORDERED ALL OTHER TESTS Performed By: #### L 500.4100, L501.9520, L509.1000, L506.1001, L502.0250, L500.4050 ####[facility] [address] [place], [address] Glucose [Mass/Vol] 116 mg/dL High 70-99 [facility] Comment on above: Order Comment: HOMERO GARCIA ORDERED CMPDNP. JON ORDERED ALL OTHER TESTS Performed By: #### L 500.4100, L501.9520, L509.1000, L506.1001, L502.0250, L500.4050 ####[facility] [address] [place], [address] Potassium [Moles/Vol] 5.1 mmol/L Normal 3.3-5.1 [facility] Comment on above: Order Comment: HOMERO GARCIA ORDERED CMPDNP. JON ORDERED ALL OTHER TESTS Performed By: #### L 500.4100, L501.9520, L509.1000, L506.1001, L502.0250, L500.4050 ####[facility] [address] [place], [address] Sodium [Moles/Vol] 140 mmol/L Normal 133-145 [facility] Comment on above: Order Comment: HOMERO GARCIA ORDERED CMPDNP. JON ORDERED ALL OTHER TESTS Performed By: #### L 500.4100, L501.9520, L509.1000, L506.1001, L502.0250, L500.4050 ####[facility] [address] [place], [address] T PROT 7.3 g/dL Normal 5.9-8.4 [facility] Comment on above: Order Comment: HOMERO GARCIA ORDERED CMPDNP. JON ORDERED ALL OTHER TESTS Performed By: #### L 500.4100, L501.9520, L509.1000, L506.1001, L502.0250, L500.4050 ####[facility] [address] [place], [address] Urea nitrogen [Mass/Vol] 36 mg/dL High 4-19 [facility] Comment on above: Order Comment: HOMERO GARCIA ORDERED CMPDNP. JON ORDERED ALL OTHER TESTS Performed By: #### L 500.4100, L501.9520, L509.1000, L506.1001, L502.0250, L500.4050 ####[facility] [address] [place], [address] D-Dimer Quantitative (DVT/PE )on 08-10-2024 D-DIMER QUANT 1.52 FEU/ug/m Invalid Interpretation Code 0.27-0.49 [facility] Comment on above: Order Comment: RADHA HIDALGO ORDERED DDIMER ORDERED ALL OTHER TESTS CRITICAL VALUE CALLED TO ALONDRA SALGADO RN (BPM) 08/10/24 1201 Vitaliy Oconnell. RESULTS READ BACK BY SAME. Result Comment: D-Di alexey ELEVATED (>0.49): Additional studies and clinical assessments are indicated to conclude diagnosis of: Deep Vein Thrombosis (DVT) or Pulmonary Embolism (PE) Performed By: #### L 300.8000, L100.1900, L300.4310, L300.3900 #### [facility] [address] [place], [address] Glomerular filtration rate ( GFR) estimation/1.73 sq m using serum, plasma, or whole bOrdered By: Brandee Weems on 08-10-2024 GFR/1.73 sq M.predicted among non-blacks MDRD (S/P/Bld) [Vol rate/Area] 46 mL/min/{1.73_m2} Low >60 [facility] Comment on above: mL/min/1.73m2 CKD-EP I Creatinine Equation (2020) International normalized rat io (INR) calculationOrdered By: HOMERO Thurston on 08-10-2024 INR Coag (Bld) [Relative time] 1.2 {INR} [facility] LDL calc ser/plasOrdered By: Brandee Weems on 08-10-2024 Cholesterol in LDL [Mass/Vol] 67 mg/dL [facility] Comment on above: Yjbpovkqov=920-198 m g/dL & Higher Zlps=678 mg/dL or greater Laboratory - Chemistry and C hemistry - challengeOrdered By: Brandee Weems on 08-10-2024 AST [Catalytic activity/Vol] 26 U/L <32 [facility] Lipid Profileon 08-10-2024 CHOL:HDL 4.14 Normal [facility] Comment on above: Order Comment: HOMERO GARCIA ORDERED CMPDNP. JON ORDERED ALL OTHER TESTS Performed By: #### L 500.4100, L501.9520, L509.1000, L506.1001, L502.0250, L500.4050 ####[facility] [address] [place], [address] Cholesterol [Mass/Vol] 128 mg/dL Normal <=200 [facility] Comment on above: Order Comment: HOMERO GARCIA ORDERED CMPDNP. JON ORDERED ALL OTHER TESTS Result Comment: Chol esterol level, Desirable <200 mg/dL Borderline high cholesterol 200-239 mg/dL High cholesterol >=240 mg/dL Recommendations of the NCEP Adult Treatment Panel for the following risk-cutoff thresholds for the [place] population. Performed By: #### L 500.4100, L501.9520, L509.1000, L506.1001, L502.0250, L500.4050 ####[facility] [address] [place], [address] Cholesterol in HDL [Mass/Vol] 31 mg/dL Low [facility] Comment on above: Order Comment: HOMERO GARCIA ORDERED CMPDNP. JON ORDERED ALL OTHER TESTS Result Comment: Yvonne onal Cholesterol Education Program (NCEP) guidelines: <40 mg/dL: Low HDL-cholesterol (major risk factor for CHD) >= 60 mg/dL: High HDL-cholesterol (negative risk factor for CHD) HDL-cholesterol is affected by a number of factors, e.g. smoking, exercise, hormones, sex and age. Performed By: #### L 500.4100, L501.9520, L509.1000, L506.1001, L502.0250, L500.4050 ####[facility] [address] [place], [address] Cholesterol in LDL [Mass/Vol] 67 mg/dL Normal [facility] Comment on above: Order Comment: HOMERO GARCIA ORDERED CMPDNP. JON ORDERED ALL OTHER TESTS Result Comment: Bord swwmln=152-015 mg/dL Higher Qnlu=492 mg/dL or greater Performed By: #### L 500.4100, L501.9520, L509.1000, L506.1001, L502.0250, L500.4050 ####[facility] [address] [place], [address] Cholesterol in VLDL [Mass/Vol] 30 mg/dL Normal 5-40 [facility] Comment on above: Order Comment: HOMERO GARCIA ORDERED CMPDNP. JON ORDERED ALL OTHER TESTS Performed By: #### L 500.4100, L501.9520, L509.1000, L506.1001, L502.0250, L500.4050 ####[facility] [address] [place] [place], [address] Triglyceride [Mass/Vol] 152 mg/dL Normal [facility] Comment on above: Order Comment: HOMERO GARCIA ORDERED CMPDNP. JON ORDERED ALL OTHER TESTS Result Comment: The drugs N-Acetylcysteine and Metamizole may falsely depress this assay. Normal range: <150 mg/dL Borderline High: 150-199 mg/dL High: 200-499 mg/dL Very High: >500 mg/dL Performed By: #### L 500.4100, L501.9520, L509.1000, L506.1001, L502.0250, L500.4050 ####[facility] [address] [place], [address] PTHINon 08-10-2024 PTH 82 pg/mL High 11-61 [facility] Comment on above: Order Comment: HOMERO GARCIA ORDERED CMPDNP. JON ORDERED ALL OTHER TESTS Performed By: #### L 500.4100, L501.9520, L509.1000, L506.1001, L502.0250, L500.4050 ####[facility] [address] [place], [address] Partial Thromboplast Timeon 08-10-2024 aPTT Coag (Bld) [Time] 27.4 s Normal 24.1-36.2 [facility] Comment on above: Order Comment: RADHA HIDALGO ORDERED DDIMER ORDERED ALL OTHER TESTS Performed By: #### L 300.8000, L100.1900, L300.4310, L300.3900 #### [facility] [address] [place], [address] Platelet Counton 08-10-2024 Platelets (Bld) [#/Vol] 374 10*3/uL Normal 150-450 [facility] Comment on above: Order Comment: RADHA HIDALGO ORDERED DDIMER ORDERED ALL OTHER TESTS Performed By: #### L 300.8000, L100.1900, L300.4310, L300.3900 #### [facility] [address] [place], [address] Platelet countOrdered By: HOMERO Thurston on 08-10-2024 Platelets (Bld) [#/Vol] 374 10*3/uL 150-450 [facility] Potassium measurement (mass/ volume)Ordered By: Brandee Weems on 08-10-2024 Potassium (Unsp spec) [Mass/Vol] 5.1 mmol/L 3.3-5.1 [facility] Prothrombin Time w/INRon INR Coag (PPP) [Relative time] 1.2 {INR} Normal [facility] Comment on above: Order Comment: RADHA HIDALGO ORDERED DDIMER ORDERED ALL OTHER TESTS Performed By: #### L 300.8000, L100.1900, L300.4310, L300.3900 #### [facility] [address] [place], [address] PT Coag (PPP) [Time] 15.1 s High 11.7-14.9 [facility] Comment on above: Order Comment: RADHA HIDALGO ORDERED DDIMER ORDERED ALL OTHER TESTS Performed By: #### L 300.8000, L100.1900, L300.4310, L300.3900 #### [facility] [address] [place], [address] Prothrombin timeOrdered By: HOMERO Thurston on 08-10-2024 PT Coag (PPP) [Time] 15.1 s High 11.7-14.9 [facility] Random urine creatinine ирина urement (mass/volume)Ordered By: Brandee Weems on 08-10-2024 Creatinine Unsp time (U) [Mass/Vol] 122.00 mg/dL 28.00-217. 00 [facility] Screening total cholesterol/ high density lipoprotein (HDL) cholesterol ratioOrdered By: Brandee Weems on 08-10-2024 Cholesterol.total/Ana M sterol in HDL [Mass ratio] 4.14 {ratio} [facility] Serum creatinine measurement (mass/volume)Ordered By: Brandee Weems on 08-10-2024 Creatinine [Mass/Vol] 1.38 mg/dL High 0.70-1.20 [facility] Serum globulin measurementOr dered By: Brandee Weems on 08-10-2024 Globulin (S) [Mass/Vol] 3.3 g/dL 2.2-4.2 [facility] Serum glucose measurement (m ass/volume)Ordered By: Brandee Weems on 08-10-2024 Glucose [Mass/Vol] 116 mg/dL High 70-99 [facility] Serum or plasma alanine salazar otransferase (ALT) measurementOrdered By: Brandee Weems on 08-10-2024 ALT [Catalytic activity/Vol] 28 U/L <35 [facility] Serum or plasma albumin ирина urement (mass/volume)Ordered By: Brandee Weems on 08-10-2024 Albumin [Mass/Vol] 4.0 g/dL 3.5-5.0 [facility] Serum or plasma albumin/glob ulin mass ratioOrdered By: Brandee Weems on 08-10-2024 Albumin/Globulin [Mass ratio] 1.2 {ratio} 0.9-2.4 [facility] Serum or plasma alkaline neil sphatase measurementOrdered By: Brandee Weems on 08-10-2024 ALP [Catalytic activity/Vol] 237 U/L High 35-104 [facility] Serum or plasma calcium ирина urement (mass/volume)Ordered By: Brandee Weems on 08-10-2024 Calcium [Mass/Vol] 9.0 mg/dL 7.6-11.0 [facility] Serum or plasma cholesterol in HDL measurement (mass/volume)Ordered By: Brandee Weems on 08-10-2024 Cholesterol in HDL [Mass/Vol] 31 mg/dL Low >40 [facility] Comment on above: National Cholesterol Education Program (NCEP) guidelines:<40 mg/dL: Low HDL-cholesterol (major risk factor for CHD)>= 60 mg/dL: High HDL-cholesterol (negative risk factor for CHD)HDL-cholesterol is affected by a number of factors, e.g. smoking, exercise, hormones, sex and age. Serum or plasma cholesterol measurement (mass/volume)Ordered By: Brandee Weems on 08-10-2024 Cholesterol [Mass/Vol] 128 mg/dL <201 [facility] Comment on above: Cholesterol level, D esirable <200 mg/dLBorderline high cholesterol 200-239 mg/dLHigh cholesterol >=240 mg/dLRecommendations of the NCEP Adult Treatment Panel for the following risk-cutoff thresholds for the [place] population. Serum or plasma urea nitroge n measurement (mass/volume)Ordered By: Brandee Weems on 08-10-2024 Urea nitrogen [Mass/Vol] 36 mg/dL High 4-19 [facility] Sodium levelOrdered By: Claudio Weems on 08-10-2024 Sodium [Moles/Vol] 140 mmol/L 133-145 [facility] TSH DL <= 0.005 mIU/L QnOrde red By: Brandee Weems on 08-10-2024 TSH Qn 3.240 uIU/mL 0.300-4.20 0 [facility] Thyroid Stim Hormone (TSH)on 08-10-2024 TSH 3.240 uIU/mL Normal 0.300-4.20 0 [facility] Comment on above: Order Comment: HOMERO GARCIA ORDERED CMPDNP. JON ORDERED ALL OTHER TESTS Performed By: #### L 500.4100, L501.9520, L509.1000, L506.1001, L502.0250, L500.4050 ####[facility] [address] [place], [address] Total proteinOrdered By: Cathryn Weems on 08-10-2024 Protein [Mass/Vol] 7.3 g/dL 5.9-8.4 [facility] Triglycerides measurementOrd ered By: Brandee Weems on 08-10-2024 Triglyceride [Mass/Vol] 152 mg/dL <199 [facility] Comment on above: The drugs N-Acetylcy steine and Metamizole may falsely depress this assay. Normal range: <150 mg/dLBorderline High: 150-199 mg/dLHigh: 200-499 mg/dLVery High: >500 mg/dL Urine albumin measurement wi th detection limit of 20 mg/L or less (mass/volume)Ordered By: Brandee Weems on 08-10-2024 Albumin DL <= 20 mg/L (U) [Mass/Vol] 113.0 mg/L NO RANGE EST. [facility] Vitamin D,25 Hydroxyon 08-10 Vitamin D 25-OH 53.3 ng/mL Normal 30-100 [facility] Comment on above: Order Comment: HOMERO GARCIA ORDERED CMPDNP. JON ORDERED ALL OTHER TESTS Result Comment: Peggy min D Status Deficiency: <20 ng/mL (50nmol/L) Insufficiency: 20-30 ng/mL (50-75 nmol/L) Sufficiency: 30-100 ng/mL (75-250 nmol/L) Toxicity: >100 ng/mL (>250 nmol/L) Performed By: #### L 500.4100, L501.9520, L509.1000, L506.1001, L502.0250, L500.4050 ####[facility] [address] [place], [address] Pulmonary Visit Reporton Pulmonary Visit Report [facility] [address] [place] [address] OFFICE VISIT Date of Service: 07/31/24 MR#: [id number] Acct: [id number] Name: SARINA DIOP Rep #: [id number] : 1970 Provider: Nettie Thurston NP Age/Sex: 53/F Location: [facility] [place].[facility] Status: Signed Assessment and Plan Assessment and Plan (1) Multiple lung nodules: Status: Chronic Comment: Negative PET 03/2024 Plan: High risk patient, no known malignancy elsewhere in the body at this point but has not undergone colonoscopy as previously recommended as there was uptake noted in the lower pelvis with concern for the rectum/rectal vault on previous pet imaging. Most recent chest CT continues to show presence of multiple nodules, right lower lobe nodule now measuring 2.6 x 2.1 cm despite improved respiratory symptoms and recovery from pneumonia. The patient will need to complete lab work and hold Eliquis prior to the recommended CT guided biopsy. This plan was discussed with Dr. Oreilly. (2) Moderate chronic obstructive pulmonary disease: Status: Chronic Plan: COPD is controlled today and stable. She is not exacerbating. She is to continue with her triple therapy, Breztri inhaler. Use albuterol as needed. Call for worsening respiratory symptoms. (3) CAMMIE (obstructive sleep apnea): Status: Chronic Plan: Sleep apnea is not controlled today. Reinstitute use of BiPAP device. I have recommended that she begin use during naps to help her become acclimated to the device again. (4) Schizophrenia: Status: Chronic Qualifiers: Schizophrenia type: unspecified Qualified Code(s): F20.9 - Schizophrenia, unspecified Plan: Complicates exam, plan, care and prognosis. (5) Smoking greater than 20 pack years: Status: Chronic Comment: current smoker Plan: Complete smoking cessation is recommended. Orders: Orders Prothrombin Time w/INR Today R06.02 - Shortness of breath Platelet Count Today R06.02 - Shortness of breath Partial Thromboplast Time Today R06.02 - Shortness of breath Biopsy/Inj or Needle Placement Today R91.8 - Other nonspecific abnormal finding of lung field Plan Details Follow Up: 4 Weeks (LMR) HPI HPI Comments Details: This 53-year-old female patient presents to the office today to review test results. She is ambulatory and currently on room air. At last visit she had suboptimal control of hypertension and failure of outpatient pneumonia treatment so was sent to the ER. She reports that she is feeling better and is at baseline. Due to the PET scan showing facilitated uptake in the lower pelvic with associated rectum/rectal vault findings, it has been recommended that the patient undergo colonoscopy. She has cancelled her procedure. She reports that she does not have a caregiver after the procedure. She continues with use of Breztri 2 puffs twice daily. She has used her albuterol inhaler twice daily. She does report rinsing her mouth out after using her maintenance inhaler. She denies sore throat or thrush. She continues to smoke cigarettes, she started at age 11. She is currently smoking 3 cigarettes/day. She has been vaping 2 times per day, her vape does contain nicotine, she reports 5mg. She has not recently been compliant with PAP therapy. She is waking up when she uses her pap device. It energizes her. She has worked with a mask fit. She reports that when she places it on at night and it makes her cough and makes her feel wide-awake. Some days she feels rested upon awakening. She reports she was unable to complete Holter monitoring because the adhesive would not hold on her skin. 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 Shortness of breath will occur with exertion but has improved since last office visit. She is coughing and producing sinus drainage that is clear to yellow. She is using Zyrtec, Flonase, Vicks rub with good benefit. She also reports wheeze. She denies chest pain and chest pressure. She has supplemental oxygen that she will use on an as-needed basis at 2 L/min. Low-dose screening lung CT from March 09, 2024 shows a 2.8 x 2.2 cm large pleural-based density that the radiologist indicates may represent pneumonia. There is a pleural-based nodule at the right lung apex measuring 7 x 8 mm along with scarring at the left lung base. There is a pleural- based nodule in the left lower lobe measuring 9 x 10 mm. Additionally, there is an emphysematous bulla that has a solid nodule measuring 1.4 x 1 cm. PET/CT from March 27, 2024 shows no definitive quantitative scintigraphic evidence of viable neoplasm with special attention paid to the bilateral lung field. It does show facilitated uptake noted in the lower pelvis associated with rectum/rectal vault is most consistent with physiologic tracer uptake. She report (more content not included)... Normal [facility] Endocrinology Visit Reporton 07-23-2024 Endocrinology Visit Report [facility] [address] [place] [address] OFFICE VISIT Date of Service: 07/23/24 MR#: [id number] Acct: [id number] Name: SARINA DIOP Rep #: [id number] : 1970 Provider: LOUISE connolly Age/Sex: 53/F [place] [facility] [place] Status: Signed Intake Vital Signs 04/03/24 12:01 07/23/24 13:13 Height 5 ft 2 in 5 ft 2 in Weight: 263 lb 4 oz BMI 48.1 BP 126/85 H Blood Pressure Location Lt brachial Position Sitting Pulse 70 Pulse Source Monitor Pulse Oximetry (%) 91 Oxygen Delivery Method room air Intake Visit Reasons: Diabetes Chief Complaint: establish care- diabetes Is patient in pain?: No Allergies prednisone Adverse Reaction (Verified 07/23/24 13:10) Other Sulfa (Sulfonamide Antibiotics) Adverse Reaction (Verified 07/23/24 13:10) Rash Medications ???Medication ???Instructions ???Recorded ???Confirmed ???Type valacyclovir 1 gram tablet 1,000 mg PO DAILY anti virus 08/1207/23/24 History aripiprazole lauroxil 882 mg/3.2 882 mg IM QMONTH mental health 07/23/24 History mL suspension, ext.rel. IM syringe cholecalciferol (vitamin D3) 25 5,000 unit PO DAILY vitamin 07/23/24 History mcg (1,000 unit) tablet gabapentin 300 mg capsule 300 mg PO TIDCM nerve pain 1 07/23/24 History bupropion HCl 300 mg 24 hr tablet, 300 mg PO DAILY mental health 07/23/24 History extended release omeprazole 20 mg tablet,delayed 20 mg PO DAILY reflux 09/04/2211/09 History release acetaminophen 325 mg tablet 650 mg (2 x 325 mg) PO Q4H PRN PRN 09/05/22 07/23/24 Rx Fever, pain -01/25 #0 tabs apixaban 5 mg tablet (Eliquis) 5 mg PO Q12H blood thinner 4 07/23/24 History diabetic supplies, miscellan. #1 ea 08/02/23 05/25/24 Rx cetirizine 10 mg tablet 10 mg PO QDAY 10/27/23 07/23/24 Hi story albuterol sulfate 90 mcg/actuation 1 - 2 puff inhalation Q4H PRN IA N 02/06/24 07/23/24 Rx aerosol inhaler (Ventolin HFA) Wheezing ##1 budesonide 160 mcg-glycopyr 9 2 inh inhalation BID #3 ea 4 07/23/24 Rx mcg-formot 4.8 mcg/actuation HFA inhaler (Breztri Aerosphere) ipratropium 0.5 mg-albuterol 3 mg 3 ml inhalation Q4H PRN PRN SOB 1 07/23/24 Rx (2.5 mg base)/3 mL nebulization /OR WHEEZING #180 mL soln metformin 1,000 mg tablet 1,000 mg PO BID 03/07/24 07/23/24 History amlodipine 10 mg tablet 10 mg PO QDAY #30 tabs 04/30/24 Rx lisinopril 20 mg tablet 20 mg PO BID #60 tabs 04/30/2411/09 Rx hydrochlorothiazide 12.5 mg tablet 12.5 mg PO QAM #30 tabs 05/10/24 07/23/24 Rx empagliflozin 10 mg tablet 10 mg PO QDAY 07/23/24 07/23/24 Hi story (Jardiance) glimepiride 2 mg tablet 2 mg PO BID #60 tabs 07/23/2411/09 Rx semaglutide 0.25 mg or 0.5 mg (2 0.25 mg (0.368 mL) subcut QWEEK #3 07/23/24 07/23/24 Rx mg/3 mL) subcutaneous pen injector mL (Ozempic) PFSH Medical History (Updated 07/24/24 @ 10:22 by Brandee Weems NP-C) Hypertension Moderate chronic obstructive pulmonary disease Chronic hypoxic respiratory failure Bipolar disorder Schizophrenia Depression Diabetes Chronic pain Kidney stones Smoker BiPAP (biphasic positive airway pressure) dependence Pulmonary embolism Morbid obesity with BMI of 50.0-59.9, adult Hypersomnia Pulmonary infarction Bilateral pulmonary embolism Morbid obesity Nicotine dependence, cigarettes, uncomplicated Tobacco abuse Non-healing surgical wound Cellulitis and abscess of neck Upper airway obstruction Bahman's angina Acute respiratory failure Bipolar disorder Anxiety Chronic back pain Surgical History History of adenoidectomy History of cholecystectomy Social History (Updated 07/23/24 @ 13:13 by Harvey Brasher RN) Smoking Status: Light Smoker (<10/day) second hand exposure: Yes alcohol intake: never substance use type: does not use frequency: 3-4 times per week HPI HPI Chief Complaint: establish care- diabetes Details: SARINA DIOP, is a 53 F who presents to the office today for evaluation and management of diabetes. Referred by PCP for uncontrolled diabetes. She was diagnosed 2+ years ago; however, she has elevated A1C dating back to 2017. She is unsure of family history, she is adopted. Complications include CKD and neuropathy. Currently taking metformin 1 gm BID- not with food, and Jardiance 10 mg once daily. She was on Mounjaro 12.5 mg qweek at one time; however, Mounjaro was discontinued as she was having significant diarrhea with fecal incontinence. She has been trying to make dietary changes including avoiding bread. She is not routinely checking her blood sugar at this (more content not included)... Normal [facility] - Hematology and Cell countsOrdered By: Brandee Weems on 07-23-2024 HbA1c (Bld) [Mass fraction] 9.8 % High 4.2-6.3 [facility] Chest without Contraston Chest without Contrast [facility] [address] [place] [address] [id number] Chest without Contrast MR#: [id number] Acct: [id number] Name: SARINA DIOP Rep #: [id number] : 1970 F 53 From: Simone Bergeron MD PCP: LOUISE Ramírez Status: DEP CLI Study: Chest without Contrast Date of Exam: 07/02/24 Exam# [id number] Ordering Dr: Nettie Thurston ADDENDUM by Dr. Simone Bergeron MD on 07/19/24 at 1912 Note a request for inclusion of a statement regarding coronary calcification has been made for billing purposes. As stated in the original report, the heart/pericardium are unremarkable. As such, there are no appreciable coronary calcifications. END OF ADDENDUM Reading Location: [id number] 07/19/241912 Date cc: LOUISE Rios; Nettie Thurston NP * Signed PROCEDURE: CHEST WITHOUT CONTRAST 07/02/2024 REASON FOR EXAM: MULTIPLE NODULES IN HIGH RISK PATIENT TECHNIQUE: CT chest was performed without IV contrast. Multiplanar reformats were generated. One or more dose reduction techniques were used (e.g., Automated exposure control, adjustment of the mA and/or kV according to patient size, use of iterative reconstruction technique COMPARISON: 03/09/2024. RADIATION DOSE SUMMARY: CTDlvol: 21.71 mGy DLP: 630.5 mGycm FINDINGS: Note that evaluation of the vasculature, rogerio, and soft tissues is limited in the absence of IV contrast. Heart/pericardium: Unremarkable. Aorta: Unremarkable. Pulmonary arteries: Normal in caliber. Lymph nodes: Unremarkable. Lungs/pleura: Slightly decreased size of the irregular subpleural subsolid but nearly solid nodule or nodular consolidation, now 2.6 x 2.1 cm, previously 3.5 x 2.2 cm (series 4, image 86). Grossly similar to slightly improved mild irregular nodular consolidation slightly more anteriorly within the nearby right lower lobe. Irregular nodular opacity in the anterior right lung apex measures 7 x 9 mm, previously 11 x 7 mm (image 26). Similar 4 mm left upper lobe nodule (image 29). Similar cystic lesion in the left lower lobe measuring 2.1 x 3.4 cm with mild wall thickening and am mural nodule measuring 1.7 x 0.9 cm (images 68 and 70). Additional similar appearing posterior subpleural cystic lesion with mural nodule more inferiorly is difficult to measure but also essentially unchanged, roughly 1.9 x 1.0 cm (image 76). Similar trace subpleural ground- glass in the posterolateral right lung apex. Dependent atelectasis/scarring. Airways: Unremarkable. Chest wall: Unremarkable. Upper abdomen: Distended stomach.. Musculoskeletal: Demineralization. Multilevel spondylosis. Degenerative changes of the left shoulder. Similar old right lateral and left posterior rib fracture inferiorly. CT/Chest without Contrast IMPRESSION: 1. Slight decrease in the size of a now 2.6 cm subsolid but nearly solid irregular subpleural nodule in the right lower lobe and a now 9 mm nodule in the right lung apex, otherwise essentially unchanged multifocal nodules and atypical cysts with mural nodules, up to 3.4 cm in the left lower lobe. Note that primary lung neoplasm may present as and atypical pulmonary cyst. These remain suspicious for neoplasm and tissue sampling of at least the larger lesions versus PET/CT should be considered. 2. Additional description as above. 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 Normal [facility] Gastroenterology Visit Repor ton 05-25-2024 Gastroenterology Visit Report [facility] Gastroenterology [address] [place] [address] OFFICE VISIT Date of Service: 05/25/24 MR#: [id number] Acct: [id number] Name: SARINA DIOP Rep #: [id number] : 1970 Provider: LOUISE sandhu Age/Sex: 53/F Location: [facility] [place] Status: Signed Intake Vital Signs 04/03/24 12:01 Height 5 ft 2 in Intake Visit Reasons: Pre colon Allergies prednisone Adverse Reaction (Verified 05/25/24 10:39) Other Sulfa (Sulfonamide Antibiotics) Adverse Reaction (Verified 05/25/24 10:39) Rash Medications ???Medication ???Instructions ???Recorded ???Confirmed ???Type valacyclovir 1 gram tablet 1,000 mg PO DAILY anti virus 08/1205/25/24 History aripiprazole lauroxil 882 mg/3.2 882 mg IM QMONTH mental health 05/25/24 History mL suspension, ext.rel. IM syringe cholecalciferol (vitamin D3) 25 5,000 unit PO DAILY vitamin 05/25/24 History mcg (1,000 unit) tablet gabapentin 300 mg capsule 300 mg PO TIDCM nerve pain 1 05/25/24 History bupropion HCl 300 mg 24 hr tablet, 300 mg PO DAILY mental health 05/25/24 History extended release omeprazole 20 mg tablet,delayed 20 mg PO DAILY reflux 09/04/2211/09 History release acetaminophen 325 mg tablet 650 mg (2 x 325 mg) PO Q4H PRN PRN 09/05/22 05/25/24 Rx Fever, pain 1-01/25 #0 tabs apixaban 5 mg tablet (Eliquis) 5 mg PO Q12H blood thinner 4 05/25/24 History diabetic supplies, miscellan. #1 ea 08/02/23 05/25/24 Rx cetirizine 10 mg tablet 10 mg PO QDAY 10/27/23 05/25/24 Hi story albuterol sulfate 90 mcg/actuation 1 - 2 puff inhalation Q4H PRN IA N 02/06/24 05/25/24 Rx aerosol inhaler (Ventolin HFA) Wheezing ##1 budesonide 160 mcg-glycopyr 9 2 inh inhalation BID #3 ea 2 4 05/25/24 Rx mcg-formot 4.8 mcg/actuation HFA inhaler (Breztri Aerosphere) ipratropium 0.5 mg-albuterol 3 mg 3 ml inhalation Q4H PRN PRN SOB 1 05/25/24 Rx (2.5 mg base)/3 mL nebulization /OR WHEEZING #180 mL soln metformin 1,000 mg tablet 1,000 mg PO BID 03/07/24 05/25/24 History varenicline tartrate 0.5 mg (11)-1 See Rx Instructions PO PER PKG D IR 03/14/24 04/03/24 Rx mg (42) tablets in a dose pack #53 tabs (x Starting Month Box) amlodipine 10 mg tablet 10 mg PO QDAY #30 tabs 04/30/24 Rx lisinopril 20 mg tablet 20 mg PO BID #60 tabs 04/30/2411/09 Rx hydrochlorothiazide 12.5 mg tablet 12.5 mg PO QAM #30 tabs 05/10/24 05/25/24 Rx Have you fallen in the past year?: No PFSH Medical History Hypertension Moderate chronic obstructive pulmonary disease Chronic hypoxic respiratory failure Bipolar disorder Schizophrenia Depression Diabetes Chronic pain Kidney stones Smoker BiPAP (biphasic positive airway pressure) dependence Pulmonary embolism Morbid obesity with BMI of 50.0-59.9, adult Hypersomnia Pulmonary infarction Bilateral pulmonary embolism Morbid obesity Nicotine dependence, cigarettes, uncomplicated Tobacco abuse Non-healing surgical wound Cellulitis and abscess of neck Upper airway obstruction Bahman's angina Acute respiratory failure Bipolar disorder Anxiety Chronic back pain Surgical History History of adenoidectomy History of cholecystectomy Social History Smoking Status: Former smoker quit date: 04/13/24 second hand exposure: Yes alcohol intake: current alcohol intake frequency: holidays/special occasions only substance use type: does not use HPI HPI Details: SARINA DIOP, is a 53 F who presents to the office today for establishment with [facility] in order to obtain a colonoscopy s/p concerns on a recent PET scan. She reports small pulmonary findings on xray in combination w/ being a 1ppd smoker x20+ yrs prompted a complete PET scan for investigation. Radiologist reading PET scan recommended direct visualization of rectal vault d/t localized attenuation of contrast in this area. She reports having GERD controlled w/daily omeprazole, abdominal bloating w/cramping, and constipation. She states that she passes patti EOD w/mod amt of straining and tenesmus; has a complete BM maybe once a month. She denies difficulty chewing and swallowing, heartburn, nausea, vomiting, abdominal pain, diarrhea, hematochezia, and melena. She has tried and failed OTC Miralax, probiotic yogurt, and laxative pills. She briefly used tirzepitide, stopping d/t liquid diarrhea, and changed to Januvia for DM management. ROS Const Constitutional: Positive for fatigue and decreased energy; No chills or fever(s) Eyes Eyes: No blurry vision or change in vision ENT EN (more content not included)... Normal [facility] Basic Metabolic Profile (BMP )on 05-14-2024 BUN/CRE 17.7 RATIO Normal 10-20 [facility] Comment on above: Performed By: #### L 500.2500 ####[facility] [address] [place], [address] CA,Total 10.4 mg/dL High 8.5-10.1 [facility] Comment on above: Performed By: #### L 500.2500 ####[facility] [address] [place], [address] EST GFR - AA 50 mL/min Low >60 [facility] Comment on above: Result Comment: Afri can Grenadian GFR Calc Performed By: #### L 500.2500 ####[facility] [address] [place], [address] GAP 9 Normal 5-15 [facility] Comment on above: Performed By: #### L 500.2500 ####[facility] [address] [place], [address] Blood urea nitrogen (BUN)/cr eatinine ratioOrdered By: Sen Gonzales on 05-14-2024 Urea nitrogen/Creatinine [Mass ratio] 17.7 mg/mg 10-20 [facility] Carbon dioxide measurementOr dered By: Sen Gonzales on 05-14-2024 CO2 [Moles/Vol] 22.0 mmol/L Normal 21.0-32.0 [facility] Comment on above: Performed By: #### L 500.2500 ####[facility] [address] [place] [place], [address] Chloride measurementOrdered By: Sen Gonzales on 05-14-2024 Chloride [Moles/Vol] 104 mmol/L Normal 98-107 [facility] Comment on above: Performed By: #### L 500.2500 ####[facility] [address] [place] [place], [address] Estimated glomerular filtrat ion rate (GFR) AmericanOrdered By: Sen Gonzales on 05-14-2024 Estimated GFR (MDRD) Amer 50 mL/min Low >60 [facility] Comment on above: GFR Calc Glomerular filtration rate ( GFR) estimationOrdered By: Sen Gonzales on 05-14-2024 GFR/1.73 sq M.predicted among non-blacks MDRD (S/P/Bld) [Vol rate/Area] 41 mL/min/{1.73_m2} Low >60 [facility] Comment on above: Non- GFR Calc Result Comment: Non- GFR Calc Performed By: #### L 500.2500 ####[facility] [address] [place], [place], [address] Estimated GFR (MDRD) Non-Af Amer 41 mL/min Low >60 [facility] Comment on above: Non- GFR Calc Glucose measurementOrdered B y: Sen Gonzales on 05-14-2024 Glucose [Mass/Vol] 365 mg/dL High 74-106 [facility] Comment on above: Glucose result great er than or equal to 200 mg/dLsuggests DIABETES MELLITUS per A.D.A. criteria. Result Comment: Gluc ose result greater than or equal to 200 mg/dL suggests DIABETES MELLITUS per A.D.A. criteria. Performed By: #### L 500.2500 ####[facility] [address] [place], [place], [address] Potassium measurementOrdered By: Sen Gonzales on 05-14-2024 Potassium [Moles/Vol] 5.0 mmol/L Normal 3.5-5.1 [facility] Comment on above: Performed By: #### L 500.2500 ####[facility] [address] [place], [place], [address] Serum anion gap measurementO rdered By: Sen Gonzales on 05-14-2024 Anion gap [Moles/Vol] 9 mmol/L 5-15 [facility] Serum or plasma calcium ирина urement (mass/volume)Ordered By: Sen Gonzales on 05-14-2024 Calcium [Mass/Vol] 10.4 mg/dL High 8.5-10.1 [facility] Serum or plasma creatinine m easurement (mass/volume)Ordered By: Sen Gonzales on 05-14-2024 Creatinine [Mass/Vol] 1.41 mg/dL High 0.55-1.02 [facility] Comment on above: The validity of the calculated GFR & GFRAA in patients over 70 years has not been determined. Clinical correlation is essential. Result Comment: The validity of the calculated GFR GFRAA in patients over 70 years has not been determined. Clinical correlation is essential. Performed By: #### L 500.2500 ####[facility] [address] [place], [place], [id number] Serum or plasma urea nitroge n measurement (mass/volume)Ordered By: Sen Gonzales on 05-14-2024 Urea nitrogen [Mass/Vol] 25 mg/dL High 7-18 [facility] Comment on above: Performed By: #### L 500.2500 ####[facility] [address] [place], [place], [id number] Sodium levelOrdered By: Segundo Gonzales on 05-14-2024 Sodium [Moles/Vol] 135 mmol/L Low 136-145 [facility] Comment on above: Performed By: #### L 500.2500 ####[facility] [address] [place], [place], [id number] LAITH SCREENING W TOMOon 04-09 LAITH SCREENING W BAO * * *Final Report* * * DATE OF EXAM: Apr 09 2024 11:45AM WRW [id number] - LAITH SCREENING W BAO / PROCEDURE REASON: Encounter for screening mammogram for breast cancer * * * * Physician Interpretation * * * * RESULT: [facility] [address] [place] [address] #[id number] - LAITH SCREENING W BAO HISTORY: Patient is 53 years old and is seen for screening and is asymptomatic in both breasts. Patient states no personal history of breast cancer. Patient states no personal history of other cancers. COMPARISON STUDIES: Comparison is made to exams dating back to: 12/15/2011. MAMMOGRAM TECHNIQUE: The study was acquired using full field digital technology and interpreted from soft copy. Digital Breast Tomosynthesis (DBT) images were obtained and used to assist in the interpretation of this examination. Computer-aided detection was utilized by the radiologist in the interpretation of this examination. MAMMOGRAM FINDINGS: The breasts are almost entirely fatty. There are a few scattered punctate calcifications in both breasts. No suspicious masses, calcifications or other abnormalities are seen in either breast. IMPRESSION: There is no mammographic evidence of malignancy. Routine screening mammogram is recommended. Annual mammogram will be due in 1 year. BI-RADS Category 2: Benign RISK: Based on the Tyrer-Cuzick (TC) risk assessment model, this patient has a 7.4% lifetime risk of developing breast cancer, meaning they are at average risk for developing breast cancer. However, this is only an estimate based on available history provided on the patient's questionnaire. We encourage all patients to talk with their providers about these results, further recommendations for managing breast health, and appropriate supplemental screening options if the patient has dense breast tissue. Interpreting Radiologist: Jesusita Francois M.D. FACR, FSBI Electronically signed on: 04/10/2024 Asic Design Engineer: ZOË Transcribe Date/Time: Apr 09 2024 11:13A Dictated by: JESUSITA FRANCOIS MD This examination was interpreted and the report reviewed and electronically signed by: JESUSITA FRANCOIS MD on Apr 10 2024 12:35PM EST [id number] Normal [facility] 12 Lead EKGon 04-03-2024 12 Lead EKG [facility] Cardiovascular Services [address] [place] [address] 12 Lead EKG 04/03/24 1209 MR#: [id number] Acct: [id number] Name: SARINA DIOP Rep #: [id number] : 1970 53 From: Nabil Xie MD Attending Dr: Status: DEP ER Ordering Dr: Stefano Chan MD Date: 04/03/24 Location: ED Sex: F C Admitted: Test Reason : CP Blood Pressure : */* mmHG Vent. Rate : 80 BPM Atrial Rate : 80 BPM P-R Int : 144 ms QRS Dur : 102 ms QT Int : 400 ms P-R-T Axes : 47 -73 70 degrees QTcB Int : 461 ms Normal sinus rhythm Left anterior fascicular block Minimal voltage criteria for LVH, may be normal variant ( [place] product ) Abnormal ECG Confirmed by NABIL XIE MD ([id number]), senior editor PRABHAKAR CASON ([id number]) on 04/05/2024 10:46:55 AM Referred By: PAT/REYNA Confirmed By: NABIL XIE MD 04/05/24 1046 Date Nabil Xie MD CC: METAL PLATER-C Joy Rios; Dr. Stefano Chan MD Signed Normal [facility] Absolute neutrophil countOrd ered By: Stefano Chan on 04-03-2024 Neutrophils (Bld) [#/Vol] 6.7 10*3/uL 2.0-7.7 [facility] Basic Metabolic Profile (BMP )on 04-03-2024 BUN/CRE 19.1 RATIO Normal 10-20 [facility] Comment on above: Order Comment: 1Y Performed By: #### L 100.0100, L500.2500, L501.5425 ####[facility] [address] [place], [address] CA,Total 10.1 mg/dL Normal 8.5-10.1 [facility] Comment on above: Order Comment: 1Y Performed By: #### L 100.0100, L500.2500, L501.5425 ####[facility] [address] [place], [address] Chloride [Moles/Vol] 108 mmol/L High 98-107 [facility] Comment on above: Order Comment: 1Y Performed By: #### L 100.0100, L500.2500, L501.5425 ####[facility] [address] [place], [address] CO2 [Moles/Vol] 23.0 mmol/L Normal 21.0-32.0 [facility] Comment on above: Order Comment: 1Y Performed By: #### L 100.0100, L500.2500, L501.5425 ####[facility] [address] [place], [address] Creatinine [Mass/Vol] 1.10 mg/dL High 0.55-1.02 [facility] Comment on above: Order Comment: 1Y Result Comment: The validity of the calculated GFR GFRAA in patients over 70 years has not been determined. Clinical correlation is essential. Performed By: #### L 100.0100, L500.2500, L501.5425 ####[facility] [address] [place], [address] ECRCL 72.11 ml/min Normal [facility] Comment on above: Order Comment: 1Y Performed By: #### L 100.0100, L500.2500, L501.5425 ####[facility] [address] [place], [address] EST GFR - AA 67 mL/min Normal >60 [facility] Comment on above: Order Comment: 1Y Result Comment: Afri can Grenadian GFR Calc Performed By: #### L 100.0100, L500.2500, L501.5425 ####[facility] [address] [place], [address] GAP 6 Normal 5-15 [facility] Comment on above: Order Comment: 1Y Performed By: #### L 100.0100, L500.2500, L501.5425 ####[facility] [address] [place], [address] GFR/1.73 sq M.predicted among non-blacks MDRD (S/P/Bld) [Vol rate/Area] 55 mL/min/{1.73_m2} Low >60 [facility] Comment on above: Order Comment: 1Y Result Comment: Non- GFR Calc Performed By: #### L 100.0100, L500.2500, L501.5425 ####[facility] [address] [place], [address] Glucose [Mass/Vol] 205 mg/dL High 74-106 [facility] Comment on above: Order Comment: 1Y Result Comment: Gluc ose result greater than or equal to 200 mg/dL suggests DIABETES MELLITUS per A.D.A. criteria. Performed By: #### L 100.0100, L500.2500, L501.5425 ####[facility] [address] [place], [address] Potassium [Moles/Vol] 4.4 mmol/L Normal 3.5-5.1 [facility] Comment on above: Order Comment: 1Y Performed By: #### L 100.0100, L500.2500, L501.5425 ####[facility] [address] [place], [address] Sodium [Moles/Vol] 136 mmol/L Normal 136-145 [facility] Comment on above: Order Comment: 1Y Performed By: #### L 100.0100, L500.2500, L501.5425 ####[facility] [address] [place], [address] Urea nitrogen [Mass/Vol] 21 mg/dL High 11-02 [facility] Comment on above: Order Comment: 1Y Performed By: #### L 100.0100, L500.2500, L501.5425 ####[facility] [address] [place], [address] Basophil percentageOrdered B y: Stefano Chan on 04-03-2024 Basophils/100 WBC (Bld) 0.8 % 0- [facility] Blood urea nitrogen (BUN)/cr eatinine ratioOrdered By: Stefano Chan on 04-03-2024 Urea nitrogen/Creatinine [Mass ratio] 19.1 mg/mg 10- [facility] CBC W/Diff, Automatedon 03-18 Absolute Lymph 2.34 X10 3/uL Normal 0.83-4.51 [facility] Comment on above: Performed By: #### L 100.0100, L500.2500, L501.5425 ####[facility] [address] [place], [address] Absolute Neut 6.7 X10 3/uL Normal 2.0-7.7 [facility] Comment on above: Performed By: #### L 100.0100, L500.2500, L501.5425 ####[facility] [address] [place], [address] Basophils/100 WBC (Bld) 0.8 % Normal 0-1 [facility] Comment on above: Performed By: #### L 100.0100, L500.2500, L501.5425 ####[facility] [address] [place], [address] Eosinophils/100 WBC (Bld) 1.2 % Normal 0-5 [facility] Comment on above: Performed By: #### L 100.0100, L500.2500, L501.5425 ####[facility] [address] [place], [address] Erythrocyte distribution width (RBC) [Ratio] 20.0 % High 11.6-14.6 [facility] Comment on above: Performed By: #### L 100.0100, L500.2500, L501.5425 ####[facility] [address] [place], [address] Hematocrit (Bld) [Volume fraction] 50.7 % High 37-47 [facility] Comment on above: Performed By: #### L 100.0100, L500.2500, L501.5425 ####[facility] [address] [place], [address] Hemoglobin (Bld) [Mass/Vol] 16.2 g/dL High 12.0-15.0 [facility] Comment on above: Performed By: #### L 100.0100, L500.2500, L501.5425 ####[facility] [address] [place], [address] IG% 0.800 Normal 0.0-0.9 [facility] Comment on above: Result Comment: IG% - Immature Granulocytes (promyelocytes, myelocytes and metamyelocytes) > 1% indicates that a LEFT SHIFT is Present. Performed By: #### L 100.0100, L500.2500, L501.5425 ####[facility] [address] [place], [address] Lymphocytes/100 WBC (Bld) 22.5 % Normal 19-41 [facility] Comment on above: Performed By: #### L 100.0100, L500.2500, L501.5425 ####[facility] [address] [place], [address] MCH (RBC) [Entitic mass] 27.8 pg Normal 27.0-32.0 [facility] Comment on above: Performed By: #### L 100.0100, L500.2500, L501.5425 ####[facility] [address] [place], [address] MCHC (RBC) [Mass/Vol] 32.0 g/dL Normal 32-36 [facility] Comment on above: Performed By: #### L 100.0100, L500.2500, L501.5425 ####[facility] [address] [place], [address] MCV (RBC) [Entitic vol] 87.1 fL Normal 81-99 [facility] Comment on above: Performed By: #### L 100.0100, L500.2500, L501.5425 ####[facility] [address] [place], [address] Monocytes/100 WBC (Bld) 10.2 % High 0-10 [facility] Comment on above: Performed By: #### L 100.0100, L500.2500, L501.5425 ####[facility] [address] [place], [address] Neutrophils/100 WBC (Bld) 64.5 % Normal 47-70 [facility] Comment on above: Performed By: #### L 100.0100, L500.2500, L501.5425 ####[facility] [address] [place], [address] Nucleated RBC (Bld) [#/Vol] 0 10*3/uL Normal 0-5 [facility] Comment on above: Performed By: #### L 100.0100, L500.2500, L501.5425 ####[facility] [address] [place], [address] Platelet mean volume (Bld) [Entitic vol] 9.8 fL Normal 6.2-12.0 [facility] Comment on above: Performed By: #### L 100.0100, L500.2500, L501.5425 ####[facility] [address] [place], [address] Platelets (Bld) [#/Vol] 306 10*3/uL Normal 150-450 [facility] Comment on above: Performed By: #### L 100.0100, L500.2500, L501.5425 ####[facility] [address] [place], [address] RBC (Bld) [#/Vol] 5.82 10*6/uL High 4.2-5.4 [facility] Comment on above: Performed By: #### L 100.0100, L500.2500, L501.5425 ####[facility] [address] [place], [address] RDW SD 60.6 fl High 35.1-43.9 [facility] Comment on above: Performed By: #### L 100.0100, L500.2500, L501.5425 ####[facility] [address] [place], [address] WBC (Bld) [#/Vol] 10.4 10*3/uL Normal 4.4-11.0 [facility] Comment on above: Performed By: #### L 100.0100, L500.2500, L501.5425 ####[facility] [address] [place], [address] Carbon dioxide measurementOr dered By: Stefano Chan on 04-03-2024 CO2 [Moles/Vol] 23.0 mmol/L 21.0-32.0 [facility] Chest PA and Lateralon 04-03 Chest PA and Lateral [facility] Imaging Services [address] [place] [address] Chest PA and Lateral MR#: [id number] Acct: [id number] Name: SARINA DIOP Rep #: [id number] : 1970 F 53 From: Jaya little MD PCP: LOUISE Ramírez Status: PRE ER Study: Chest PA and Lateral Date of Exam: 04/03/24 Exam# [id number] Ordering Dr: Stefano Chan MD [id number] STUDY: X-RAY CHEST REASON FOR EXAM: Female, 53 years old. Chest pain TECHNIQUE: PA and lateral views of the chest. COMPARISON: Comparison is made with prior study dated July 29, 2023. FINDINGS: EKG electrodes are seen. Patchy bibasilar pulmonary infiltrates worse on the right side. Blunting of the right costophrenic angle. Normal size heart. Normal mediastinum and rogerio. Normal visualized pulmonary arteries. Normal visualized aortic arch and descending thoracic aorta. There are degenerative changes of the visualized thoracic spine. Normal visualized ribs, clavicles, and shoulders. There is no demonstrated abnormality of the visualized soft tissue structures of the upper abdomen. RAD/Chest PA and Lateral IMPRESSION: Patchy bibasilar infiltrates worse on the right lung base with blunting of the right costophrenic angle. Electronically Signed: Jaya Johnson MD at 12:44 EST , CC: LOUISE Rios; Dr. Stefano Chan MD Asic Design Engineer: Signed Normal [facility] Chloride measurementOrdered By: Stefano Chan on 04-03-2024 Chloride [Moles/Vol] 108 mmol/L High 98-107 [facility] Emergency Department Summary on 04-03-2024 Emergency Department Summary [facility] Medical Records Department [address] [place] [address] Emergency Department Summary 04/03/24 MR#: [id number] Acct: [id number] Name: SARINA DIOP Rep #: [id number] : 1970 53 From: Stefano Chan MD PCP: LOUISE Ramírez Status:REG ER Location: ED HPI History of Present Illness Chief Complaint: Chest Pain Informant: patient Onset/Context/Timing Onset: Weeks Activity at onset: gradual Timing: Intermittent Quality: Positive for Aching Location: Substernal Current Severity: Mild Maximum Severity: Mild Worsened By: Exertion and Coughing Relieved By: Nothing Associated Symptoms: Positive for Dyspnea and Cough; Negative for Nausea, Vomiting, Diaphoresis, Fever, Lightheadedness, Acid Reflux or Palpitations Narrative Narrative: 53-year-old female history of COPD trying to quit smoking also history of diabetes and prior pulmonary emboli chronically on the blood thinner Eliquis which she states she has been taking. Recently had URI symptoms. Was treated with oral antibiotic, doxycycline,. Today went and saw the nurse practitioner at the pulmonology office. And they were concerned that she was not improving and sent her down to emergency department. Reportedly had a recent chest x-ray and PET scan did not show pneumonia. Prior Similar Symptoms: Yes Recent Illness/Hospitalization: No CVD Risk Factors: Positive for Diabetes PE Risk Factors: Positive for Prior DVT or PE; Negative for Recent Travel/Surgery, Recent Immobilization, Cancer or OCP + Smoking + >/=35 TAD Risk Factors: Negative for Marfan's Syndrome PFSH PFSH Medical History Hypertension Moderate chronic obstructive pulmonary disease Chronic hypoxic respiratory failure Bipolar disorder Schizophrenia Depression Diabetes Chronic pain Kidney stones Smoker BiPAP (biphasic positive airway pressure) dependence Pulmonary embolism Morbid obesity with BMI of 50.0-59.9, adult Hypersomnia Pulmonary infarction Bilateral pulmonary embolism Morbid obesity Nicotine dependence, cigarettes, uncomplicated Tobacco abuse Non-healing surgical wound Cellulitis and abscess of neck Upper airway obstruction Bahman's angina Acute respiratory failure Bipolar disorder Anxiety Chronic back pain Home Medications ???Medication ???Instructions ???Recorded ???Last Taken ???Type valacyclovir 1 gram tablet 1,000 mg PO DAILY anti virus 08/12/18 07/29/23 08:00 History 1,000 mg aripiprazole lauroxil 882 mg/3.2 882 mg IM QMONTH mental health 09/12/18 07/28/23 History mL suspension, ext.rel. IM syringe cholecalciferol (vitamin D3) 25 5,000 unit PO DAILY vitamin 07/02/20 07/29/23 08:00 History mcg (1,000 unit) tablet 5,000 unit gabapentin 300 mg capsule 300 mg PO TIDCM nerve pain 07/02/20 07/28/23 21:00 History bupropion HCl 300 mg 24 hr tablet, 300 mg PO DAILY mental health 09/04/22 07/29/23 08:00 History extended release 300 mg omeprazole 20 mg tablet,delayed 20 mg PO DAILY reflux 09/04/22 07/29/23 08:00 History release 40 mg acetaminophen 325 mg tablet 650 mg (2 x 325 mg) PO Q4H PRN PRN 09/05/22 07/29/23 08:00 Rx Fever, pain -01/25 #0 tabs 650 mg apixaban 5 mg tablet (Eliquis) 5 mg PO Q12H blood thinner 05/27/23 07/29/23 08:00 History 5 mg diabetic supplies, miscellan. #1 ea 08/02/23 Unknown Rx losartan 25 mg tablet 25 mg PO DAILY #30 tabs 08/02/23 Unknown Rx cetirizine 10 mg tablet 10 mg PO QDAY 10/27/23 Unknown History albuterol sulfate 90 mcg/actuation 1 - 2 puff inhalation Q4H PRN PRN 02/06/24 Unknown Rx aerosol inhaler (Ventolin HFA) Wheezing ##1 budesonide 160 mcg-glycopyr 9 2 inh inhalation BID #3 ea 02/06/24 Unknown Rx mcg-formot 4.8 mcg/actuation HFA inhaler (Breztri Aerosphere) ipratropium 0.5 mg-albuterol 3 mg 3 ml inhalation Q4H PRN PRN SOB 02/06/24 Unknown Rx (2.5 mg base)/3 mL nebulization /OR WHEEZING #180 mL soln tirzepatide 12.5 mg/0.5 mL mg subcut 02/06/24 Unknown History subcutaneous pen injector (Mounjaro) metformin 1,000 mg tablet 1,000 mg PO BID 03/07/24 Unknown History varenicline tartrate 0.5 mg (11)-1 See Rx Instructions PO PER PKG DIR 03/14/24 Unknown Rx mg (42) tablets in a dose pack #53 tabs (Chantix Starting Month Box) Allergy/AdvReac Type Severity Reaction Status Date / Time prednisone AdvReac Other Verified 04/03/24 12:02 Sulfa (Sulfonamide AdvReac Rash Verified 04/03/24 12:02 Antibiotics) Surgical History History of adenoidectomy History of cholecystectomy Social History Smoking Status: Current every day smoker tobacco type: cigarettes Tobacco: How many years used: 30 second hand exposure: Yes alcohol intake: (more content not included)... Normal [facility] Eosinophil percentageOrdered By: Stefano Chan on 04-03-2024 Eosinophils/100 WBC (Bld) 1.2 % 0-5 [facility] Erythrocyte distribution wid th ratioOrdered By: Stefano Chan on 04-03-2024 Erythrocyte distribution width (RBC) [Ratio] 20.0 % High 11.6-14.6 [facility] Erythrocyte distribution wid th standard deviationOrdered By: Stefano Chan on 04-03-2024 Erythrocyte distribution width (RBC) [Entitic vol] 60.6 fL High 35.1-43.9 [facility] Estimated glomerular filtrat ion rate (GFR) AmericanOrdered By: Stefano Chan on 04-03-2024 Estimated GFR (MDRD) Amer 67 mL/min >60 [facility] Comment on above: GFR Calc Estimation of creatinine alexia aranceOrdered By: Stefano Chan on 04-03-2024 Estimated Creatinine Clearance Calc 72.11 ml/min [facility] Glomerular filtration rate ( GFR) estimationOrdered By: Stefano Chan on 04-03-2024 Estimated GFR (MDRD) Non-Af Amer 55 mL/min Low >60 [facility] Comment on above: Non- GFR Calc Glucose measurementOrdered B y: Stefano Chan on 04-03-2024 Glucose [Mass/Vol] 205 mg/dL High 74-106 [facility] Comment on above: Glucose result great er than or equal to 200 mg/dLsuggests DIABETES MELLITUS per A.D.A. criteria. Hematocrit Auto (Bld) [Volum e fraction]Ordered By: Stefano Chan on 04-03-2024 Hematocrit (Bld) [Volume fraction] 50.7 % High 37-47 [facility] Hemoglobin measurementOrdere d By: Stefano Chan on 04-03-2024 Hemoglobin (Bld) [Mass/Vol] 16.2 g/dL High 12.0-15.0 [facility] Immature granulocytes/100 WB C Auto (Bld)Ordered By: Stefano Chan on 04-03-2024 Immature granulocytes/100 WBC (Bld) 0.800 % 0.0-0.9 [facility] Comment on above: IG% - Immature Granu locytes (promyelocytes, myelocytes and metamyelocytes) > 1% indicates that a LEFT SHIFT is Present. L501.4020on 04-03-2024 TROPONIN-I HS 31 pg/mL Normal 3.0-54.0 [facility] Comment on above: Result Comment: Haylie mar Note: New Test Units and Gender Specific Reference Ranges. For more information see Policy Stat Procedure [place] High Sensitivity Troponin (TNIH) and attachments. Performed By: #### L 501.4020 ####[facility] [id number] [place], [place], [id number] L501.5425on 04-03-2024 TROPONIN-I HS 29 pg/mL Normal 3.0-54.0 [facility] Comment on above: Order Comment: 1Y Result Comment: Haylie mar Note: New Test Units and Gender Specific Reference Ranges. For more information see Policy Stat Procedure [place] High Sensitivity Troponin (TNIH) and attachments. Performed By: #### L 100.0100, L500.2500, L501.5425 ####[facility] [id number] [place], [address] Lymphocytes Auto (Unsp spec) [#/Vol]Ordered By: Stefano Chan on 04-03-2024 Lymphocytes (Bld) [#/Vol] 2.34 10*3/uL 0.83-4.51 [facility] Lymphocytes/100 WBC Auto (Un sp spec)Ordered By: Stefano Chan on 04-03-2024 Lymphocytes/100 WBC (Bld) 22.5 % 19-41 [facility] MCV (mean corpuscular volume ) determinationOrdered By: Stefano Chan on 04-03-2024 MCV (RBC) [Entitic vol] 87.1 fL 81-99 [facility] Mean corpuscular hemoglobin (MCH) determinationOrdered By: Stefano Chan on 04-03-2024 MCH (RBC) [Entitic mass] 27.8 pg 27.0-32.0 [facility] Mean corpuscular hemoglobin concentration (MCHC) determinationOrdered By: Stefano Chan on 04-03-2024 MCHC (RBC) [Mass/Vol] 32.0 g/dL 32-36 [facility] Mean platelet volume determi nationOrdered By: Stefano Chan on 04-03-2024 Platelet mean volume (Bld) [Entitic vol] 9.8 fL 6.2-12.0 [facility] Monocyte percentageOrdered B y: Stefano Chan on 04-03-2024 Monocytes/100 WBC (Bld) 10.2 % High 0-10 [facility] Neutrophil percentageOrdered By: Stefano Chan on 04-03-2024 Neutrophils/100 WBC (Bld) 64.5 % 47-70 [facility] Nucleated red blood cell per centageOrdered By: Stefano Chan on 04-03-2024 Nucleated RBC/100 WBC (Bld) [Ratio] 0 % 0-5 [facility] Platelet countOrdered By: Rafa Chan on 04-03-2024 Platelets (Bld) [#/Vol] 306 10*3/uL 150-450 [facility] Potassium measurementOrdered By: Stefano Chan on 04-03-2024 Potassium [Moles/Vol] 4.4 mmol/L 3.5-5.1 [facility] Pulmonary Visit Reporton Pulmonary Visit Report [facility] [address] [place] [address] OFFICE VISIT Date of Service: 04/03/24 MR#: [id number] Acct: [id number] Name: SARINA DIOP Rep #: [id number] : 1970 Provider: Nettie Thurston NP Age/Sex: 53/F Location: [facility] [place].[facility] Status: Signed Assessment and Plan Assessment and Plan (1) Hypertension: Status: Chronic Qualifiers: Hypertension type: primary hypertension Qualified Code(s): I10 - Essential (primary) hypertension Plan: Uncontrolled hypertension today with chest pain and chest tightness. I have recommended that patient be sent to the ER, this decision was discussed with Dr. Oreilly today. The anterior chest pain has not been acutely progressive but there is chest tightness and posterior mid back pain present. I have called ER and given report on the patient as she was transferred. (2) Multiple lung nodules: Status: Chronic Comment: Negative PET 03/2024, [address] planned Plan: Failure of outpatient treatment for pneumonia. High risk patient, no known malignancy elsewhere in the body at this point. She understands that there was uptake noted in the lower pelvis with concern for the rectum/rectal vault. I recommended that she follow-up with PCP to further discuss. I plan to obtain chest CT in 3 months to follow nodules. (3) Moderate chronic obstructive pulmonary disease: Status: Chronic Plan: The patient did not respond to doxycycline. Initially I had recommended Levaquin but given patient's uncontrolled hypertension and cardiac complaints I have recommended that she report to the ER. She is to continue with her Breztri inhaler. (4) CAMMIE (obstructive sleep apnea): Status: Chronic Plan: Await follow-up with RT so that she can return to using BiPAP therapy. This is not controlled today as she has not been able to use her device. I believe that this is complicating her pulmonary disease process. (5) Schizophrenia: Status: Chronic Qualifiers: Schizophrenia type: unspecified Qualified Code(s): F20.9 - Schizophrenia, unspecified Plan: Complicates exam, plan, care and prognosis. (6) Smoking greater than 20 pack years: Status: Chronic Comment: current smoker Plan: Complete smoking cessation is recommended. Orders: Orders Chest without Contrast 3 Months R91.8 - Other nonspecific abnormal finding of lung field Plan Details Follow Up: 3 Months (LMR) HPI HPI Comments Details: This 53-year-old female patient presents to the office today to review test results. She is ambulatory and currently on room air. She did call this office with back pain that was progressing and was advised to go to the ER but did not follow recommendations. She is status post doxycycline for possible pneumonia and reports no benefit with use of this antibiotic therapy. There has been no improvement in symptoms. She reports that her back pain initially presented on the left side and has now progressed to the right side. She reports that it has been occurring for possibly 1 month. She reports that the pain is dull and shooting, across to her back. It is worse when she is in side-lying position and also upon inspiration. She has shortness of breath with rest and activity. She reports a wheeze on exertion. She reports a frequent cough due to sinus drainage. She reports that her cough is productive with clear to yellow mucus and occasional blood-tinged which she states is from my sinuses . The patient indicates that she has chest congestion all the time which worsens with exertion . Today she is reporting chest pain and chest tightness with exertion. She continues with use of Breztri 2 puffs twice daily. She has not required the use of her albuterol inhaler. She does report rinsing her mouth out after using her maintenance inhaler. She denies sore throat or thrush. She continues to smoke cigarettes, she started at age 11. She is currently down to 3 cigarettes/day, at last visit she was smoking 5 cigarettes/day. She has been vaping 2 times per day, her vape does contain nicotine, she reports 5mg. She has not recently been compliant with PAP therapy. At last visit it was recommended that she work with RT for PAP education and new supplies. She does have this appointment scheduled for April 10. She reports she was unable to complete Holter monitoring because the adhesive would not hold on her skin. Low-dose screening lung CT from March 09, 2024 shows a 2.8 x 2.2 cm large pleural-based density that the radiologist indicates may represent pneumonia. There is a pleural-based nodule at the right lung apex measuring 7 x 8 mm along with scarring at the left lung base. There is a pleural- based nodule in the left lower lobe measuring 9 x 10 mm. Additionally, there is an emphysematous bulla that has a solid nodule measuring 1.4 (more content not included)... Normal [facility] RBC Auto (Bld) [#/Vol]Ordere d By: Stefano Chan on 04-03-2024 RBC (Bld) [#/Vol] 5.82 10*6/uL High 4.2-5.4 [facility] Serum anion gap measurementO rdered By: Stefano Chan on 04-03-2024 Anion gap [Moles/Vol] 6 mmol/L 5-15 [facility] Serum or plasma calcium ирина urement (mass/volume)Ordered By: Stefano Chan on 04-03-2024 Calcium [Mass/Vol] 10.1 mg/dL 8.5-10.1 [facility] Serum or plasma creatinine m easurement (mass/volume)Ordered By: Stefano Chan on 04-03-2024 Creatinine [Mass/Vol] 1.10 mg/dL High 0.55-1.02 [facility] Comment on above: The validity of the calculated GFR & GFRAA in patients over 70 years has not been determined. Clinical correlation is essential. Serum or plasma urea nitroge n measurement (mass/volume)Ordered By: Stefano Chan on 04-03-2024 Urea nitrogen [Mass/Vol] 21 mg/dL High 7-18 [facility] Sodium levelOrdered By: Stefano Chan on 04-03-2024 Sodium [Moles/Vol] 136 mmol/L 136-145 [facility] Troponin IOrdered By: Stefano washing[place] on 04-03-2024 Troponin I High Sensitivity 31 pg/mL 3.0-54.0 [facility] Comment on above: Please Note: [place] t Units and Gender Specific Reference Ranges. For more information see Policy Stat Procedure [place] High Sensitivity Troponin (TNIH) and attachments. White blood cell (WBC) count Ordered By: Stefano Chan on 04-03-2024 WBC (Bld) [#/Vol] 10.4 10*3/uL 4.4-11.0 [facility] Echo Complete W/ Contraston 03-29-2024 Echo Complete W/ Contrast [facility] [place] [address] Echo Complete W/ Contrast 03/29/24 1230 MR#: [id number] Acct: [id number] Name: SARINA DIOP Rep #: [id number] : 1970 53 From: Ary Squires MD Attending Dr: Dr. Sen Gonzales MD Status: RE G CLI Ordering Dr: Sen Gonzales MD Date: 03/29/24 Location: [facility] Sex: F C Admitted: Reason For Study: SHORTNESS OF BREATH Procedure This was a 2D Doppler, Color Flow transthoracic echocardiogram. The study was technically difficult. Contrast injection was performed. Exam performed in department. Left Ventricle Normal LV size. The estimated ejection fraction is 55 %. Diastolic function is indeterminate. No regional wall motion abnormalities noted. Right Ventricle Severely dilated right ventricle. Normal systolic function. Atria The left and right atria are normal. No doppler evidence for ASD. Mitral Valve There is no mitral valve stenosis. No mitral valve insufficiency. Tricuspid Valve There is no tricuspid stenosis. Mild to moderate (1-2+) tricuspid valve insufficiency. Pulmonary artery systolic pressure is 60 mmHg. Aortic Valve Trisinus/trileaflet aortic valve. Aortic sclerosis, no stenosis. There is no aortic stenosis. No aortic valve insufficiency. Pulmonic Valve There is no pulmonic valvular stenosis. Trivial pulmonic valve insufficiency. Great Vessels Normal aortic root. Pericardium/Pleural No pericardial effusion. Medication 22 gauge I.V. with prn adaptor inserted into left arm. Diluted definity 2ml given slow IV push to enhance endocardial definition. MMode/2D Measurements Calculations LVIDd: 5.0 cm IVSd: 0.99 cm LVOT diam: 1.9 cm LVIDs: 3.2 cm LVPWd: 0.91 cm RVDd: 5.1 cm FS: 35.9 % LVOT area: 2.9 cm2 asc Aorta Diam: 3.5 cm LAV(MOD-bp): 34.6 ml LVAd ap4: 26.3 cm2 LAV(MOD-bp) Indexed: 16.5 ml/m2 LVLd ap4: 7.3 cm LAV(MOD-sp2): 29.9 ml EDV(MOD-sp4): 76.6 ml LAV(MOD-sp4): 34.5 ml EDV(sp4-el): 80.0 ml LVAs ap4: 16.8 cm2 LVLs ap4: 6.4 cm ESV(MOD-sp4): 37.3 ml ESV(sp4-el): 37.4 ml EF(MOD-sp4): 51.3 % EF(sp4-el): 53.3 % LVAd ap2: 29.6 cm2 SV(MOD-sp4): 39.3 ml SV(MOD-sp2): 56.2 ml LVLd ap2: 7.3 cm SI(MOD-sp4): 18.7 ml/m2 SI(MOD-sp2): 26.7 ml/m2 EDV(MOD-sp2): 102.6 ml EDV(sp2-el): 101.2 ml LVAs ap2: 17.8 cm2 LVLs ap2: 5.8 cm ESV(MOD-sp2): 46.5 ml ESV(sp2-el): 46.6 ml EF(MOD-sp2): 54.7 % SV(sp4-el): 42.6 ml Ao sinus diam: 3.[address] Junction: 2.4 cm LA dimension(2D): 4.1 cm LA A4 area: 14.9 cm2 RA A4 area: 15.8 cm2 TAPSE: 1.2 cm Time Measurements MV dec time: 0.21 sec Doppler Measurements Calculations MV E max ruslan: 82.9 cm/sec Lat Peak E' Ruslan: 8.0 cm/sec Med Peak E' Ruslan: 5.3 cm/sec MV A max ruslan: 117.2 cm/sec E/E' lat: 10.4 E/E' med: 15.6 MV E/A: 0.71 MV dec slope: 387.9 cm/sec2 Ao V2 max: 134.3 cm/sec LV V1 max: 112.8 cm/sec Ao max P.2 mmHg LV V1 max P.1 mmHg Ao V2 mean: 93.3 cm/sec LV V1 mean P.8 mmHg Ao mean P.0 mmHg LV V1 mean: 77.1 cm/sec Ao V2 VTI: 24.0 cm LV V1 VTI: 19.4 cm AV (velocity ratio): 0.81 JAVIER(I,D): 2.4 cm2 JAVIER(V,D): 2.5 cm2 SV(LVOT): 56.8 ml PA V2 max: 81.6 cm/sec TR max ruslan: 371.9 cm/sec TR max P.3 mmHg ECHO/Echo Complete W/ Contrast Interpretation Summary The estimated ejection fraction is 55 %. Diastolic function is indeterminate. Pulmonary artery systolic pressure is 60 mmHg. Severely dilated right ventricle. Ordering Physician: Sen Gonzales Referring Physician: AFIA DRSICOLL Performed By: Grace Martinez [facility] 04/02/24 1236 Date Ary Squires MD CC: [facility]-C Afia Driscoll; Dr. Sen Gonzales MD Date Dictated: 03/29/24 1230 Date Transcribed: 04/02/24 123 [employer] Design Engineer: Signed [facility] PET/CT Tumor Base -Thigh [facility] 03-27-2024 PET/CT Tumor Base -Thigh Init [facility] Imaging Services [address] [place] [id number] PET/CT Tumor Base -Thigh Init MR#: [id number] Acct: [id number] Name: SARINA DIOP Rep #: [id number] : 1970 F 53 From: Deonte Simon PCP: LOUISE Ramírez Status: REG CLI Study: PET/CT Tumor Base -Thigh Init Date of Exam: Exam# [id number] Ordering Dr: Nettie Thurston [id number] EXAMINATION: FDG PET-CT INDICATIONS: A 53-year-old female with history of pulmonary nodularity. COMPARISON EXAMINATION: CT of the chest dated 03/09/24 TECHNIQUE: Following the intravenous administration of 12.47 mCi of F-18 deoxyglucose via the left antecubital fossa, multiplanar image acquisitions of the neck, chest, abdomen and pelvis to level of mid thigh, obtained at one hour post radiopharmaceutical administration contemporaneously interpreted with the current CT of the neck, chest, abdomen and pelvis, to level of mid thigh, dated 03/27/[address] of the chest dated 03/09/24 reveals: BLOOD GLUCOSE LEVEL:?? 134 mg/dl?HEIGHT:?62 inches?WEIGHT: 250 lbs. FINDINGS: HEAD/NECK: There is no evidence of abnormal increased glucose metabolism in the pharyngeal mucosal space, parapharyngeal space, bilateral-lateral and anterior neck, hypopharynx and distribution of the laryngeal structures. The visualized portion of the cerebral cortical-subcortical structures demonstrate symmetric and preserved glucose metabolism. Prominent uptake is noted in the anterior neck, laryngeal structures most consistent with physiologic tracer uptake. CHEST: There is no quantitative scintigraphic evidence of abnormal increased glucose metabolism within the context of the bilateral hemithorax pulmonary parenchyma, right and left hemithorax pleural interface, mediastinal structures and right-left thoracic perihilum. Prominent radiopharmaceutical concentration is identified in the left ventricular myocardium commensurate with the [place]. Pertinent chest CT findings are as follows. Parenchymal densities defined in the bilateral hemithorax demonstrate no evidence of quantitatively significant increased glucose metabolism. There is atherosclerotic calcification defined in the thoracic aorta without evidence of dilatation-aneurysm formation. A small right hemithorax pleural effusion is defined. ABDOMEN/PELVIS: Normal physiologic distribution of the radiopharmaceutical is apparent in the hepatic and splenic parenchyma, both renal units, bladder and visualized intestinal tract. Diffuse radiopharmaceutical concentration is noted in all four quadrants of the abdomen and pelvis potentially at the level of the distal rectal vault. Pertinent abdomen and pelvis CT findings are as follows. An intrauterine contraceptive device is defined. A fat containing left anterior abdominal wall hernia is noted. Cyst formation is defined in the left kidney. The gallbladder is not clearly identified. Pelvic arterial calcification is observed. Urine contamination artifact is noted in the anterior-posterior perineum. SKELETAL: Degenerative changes are noted in the cervical, thoracic and lumbar spine without evidence of increased radiopharmaceutical concentration. PET/PET/CT Tumor Base -Thigh Init IMPRESSION: 1. NEGATIVE EXAMINATION. There is no definitive quantitative scintigraphic evidence of viable neoplasm with special attention paid to the bilateral lung field. 2. Metabolic and/or anatomic stability may be ensured in the bilateral hemithorax pulmonary parenchymal ametabolic parenchymal densities with repeat FDG PET study and/or CT of the thorax in 3-6 months if clinically indicated. (Xiu, Journal of Nuclear Medicine 45:88, P2004 Shonna, Seminars in Thoracic and Cardiovascular Surgery 14:292, 2002). 3. Facilitated uptake noted in the lower pelvis associated with the rectum-rectal vault is most consistent with physiologic tracer uptake. If intraluminal soft tissue mass formation is suspected, correlation with digital examination or direct visualization is recommended. Electronic Signature Deonte Pate D.O. Accurate Quantification of SUVs for this report are calculated using the exclusive [employer]. (U.S. Patent No. [id number], [phone], 983 B2 [phone] [place] patent [phone]). Standardization and correction of the FDG SUV metric via [employer] technology allow for vendor non-specific objective quantitative examination comparison and optimization of the sensitivity and specificity of the FDG PET-CT examination. [email or web address] Electronically Signed: Deonte Pate DO at 23:00 EST , (more content not included)... Normal [facility] Pulmonary Visit Reporton Pulmonary Visit Report [facility] [address] [place] [address] OFFICE VISIT Date of Service: 03/14/24 MR#: [id number] Acct: [id number] Name: SARINA DIOP Rep #: [id number] : 1970 Provider: Nettie Thurston NP Age/Sex: 53/F Location: [facility] [place] Status: Signed with Addenda ADDENDUM by Nettie Thurston NP on 03/23/24 at 1247 Assessment and Plan Assessment and Plan (1) Multiple lung nodules: Status: Acute (2) Moderate chronic obstructive pulmonary disease: Status: Chronic (3) CAMMIE (obstructive sleep apnea): Status: Chronic (4) Schizophrenia: Status: Chronic Qualifiers: Schizophrenia type: unspecified Qualified Code(s): F20.9 - Schizophrenia, unspecified (5) Smoking greater than 20 pack years: Status: Chronic Comment: current smoker Plan: 8 minutes of smoking cessation discussed face to face (6) Morbid obesity: Status: Chronic (7) Palpitations: Status: Chronic Orders: Orders Self Mgmnt Educ Training 03/29/24 G47.33 - Obstructive sleep apnea (adult) (pediatric) PET/CT Tumor Base -Thigh Init 03/14/24 R91.8 - Other nonspecific abnormal finding of lung field Medications: New varenicline (Chantix Starting Month Box) PO PER PKG DIR 53 tabs 0RF doxycycline hyclate 100 mg PO BID 14 caps 0RF Plan Details Follow Up: 2-4 weeks 03/23/24 1247 Date Nettie Thurston cc: METAL PLATER-C Joy Rios * Signed Assessment and Plan Assessment and Plan (1) Multiple lung nodules: Status: Acute Plan: High risk patient, no known malignancy elsewhere in the body at this point. Unclear of multiple nodules etiology could represent malignancy, infection, inflammatory process. PET CT then follow up. The patient is agreeable to this testing. The report indicated a right pleural density which may represent pneumonia. Patient has had a slight increase in respiratory symptoms. I plan to treat with doxycycline at this point. (2) Moderate chronic obstructive pulmonary disease: Status: Chronic Plan: There is some concern for one of the nodular densities representing pneumonia so I will treat for this today. Continue current maintenance medication, Breztri. Use albuterol as needed. She declines flu shot today. (3) CAMMIE (obstructive sleep apnea): Status: Chronic Plan: Struggling with compliance, currently uncontrolled. I recommend working with RT for pap education and to consider a different style of mask, possibly with the tubing coming from the top of the head gear. I recommend that she start on a pressure of BiPAP 11/ 7 cm of water to acclimate to the device and then on follow-up I will continue to monitor compliance download and can increase pressures once she has been able to increase compliance. I have also recommended that for her to be able to adapt to the PAP device that she utilize the device during the day when she is sitting in her recliner. I am concerned that this is contributing to worsening cardiovascular disease. I have recommended the use of Flonase especially if she pursues a nasal style mask. (4) Schizophrenia: Status: Chronic Qualifiers: Schizophrenia type: unspecified Qualified Code(s): F20.9 - Schizophrenia, unspecified Plan: Complicates exam, plan, care and prognosis. Patient does appear anxious and tearful today. Continue to follow with PCP/psychiatry. (5) Smoking greater than 20 pack years: Status: Chronic Comment: current smoker Plan: Encourage complete smoking cessation. The patient is utilizing nicotine vape along with cigarettes, trying to quit smoking. The patient is educated about the benefits of smoking cessation. Medical therapy for smoking cessation was discussed with patient today. Chantix was prescribed, she indicates that she has used this in the past and it was helpful. Discussed habits, quit date, coping mechanisms. All questions were answered. (6) Morbid obesity: Status: Chronic Plan: Complicates exam, plan, care and prognosis. Prudent diet intake while pursuing smoking cessation. (7) Palpitations: Status: Chronic Plan: Blood pressure is high today, the patient has not taken her medication yet this morning and understands that she needs to continue timely use of the prescribed medications. Continue to follow with cardiology, await echocardiogram. Orders: Orders Self Mgmnt Educ Training Today G47.33 - Obstructive sleep apnea (adult) (pediatric) PET/CT Tumor Base -Thigh Init Today R91.8 - Other nonspecific abnormal finding of lung field Medications: New varenicline (Chantix Starting Month Box) PO PER PKG DIR 53 tabs 0RF doxycycline hyclate 100 mg PO BID 14 caps 0RF Plan Details Follow Up: 2-4 weeks HPI HPI Comments Details: This 53-year-old female patient presents to the office today to (more content not included)... Normal [facility] Low Dose CT Lung Screeningon 03-09-[address] Lung Screening [facility] Services [address] [place] [address] Lung Screening MR#: [id number] Acct: [id number] Name: SARINA DIOP Rep #: [id number] : 1970 F 53 From: Rush Benton MD PCP: LOUISE Ramírez Status: [facility] Study: Low Dose CT Lung Screening Date of Exam: 03/09 Exam# [id number] Ordering Dr: Salma Maldonado NP METAL PLATER-C [id number] EXAM: CT CHEST, LUNG CANCER SCREENING WITHOUT INTRAVENOUS CONTRAST CLINICAL INDICATION: current smoker TECHNIQUE: Helically acquired images were obtained of the chest without intravenous contrast using low dose (LDCT) lung cancer screening protocol. This CT exam was performed using one or more of the following dose reduction techniques: automated exposure control, adjustment of the mA and/or kV according to patient size, and/or use of iterative reconstruction technique. COMPARISON: No relevant prior studies available. FINDINGS: LUNGS AND PLEURAL SPACES: There is a large pleural-based density at the right lung base and measures 2.8 x 2.2 cm and may represent pneumonia. Pleural-based nodule in the right lung apex that measures 7 x 8 mm. There is scarring in the left lung base. There is emphysematous bulla that has a solid nodule within it. The nodule measures 1.4 x 1.0 cm. There is a pleural-based nodule in the left lower lobe posteriorly that measures 9 x 10 mm. HEART: Unremarkable. Heart size is normal. No pericardial effusion. No significant coronary artery calcifications. MEDIASTINUM: Unremarkable. No mediastinal or hilar adenopathy. Esophagus is unremarkable. No hiatal hernia. THYROID: Unremarkable. No thyroid lesions. BONES/JOINTS: Unremarkable. No suspicious lytic or blastic abnormality. VASCULATURE: Unremarkable. Thoracic aorta is non-dilated. LYMPH NODES: Unremarkable. No enlarged lymph nodes. CT/Low Dose CT Lung Screening IMPRESSION: Multiple nodular densities in largest in the right lower lobe possibly representing a focal area of pneumonia. There is a cystic structure with a nodule within it in the left lower lobe. Lung-RADS score: 4B - Very Suspicious. Recommend chest CT with or without contrast, PET/CT and/or tissue sampling depending on the probability of malignancy and comorbidities. PET/CT may be used when there is a >=8 mm solid component. For new large nodules that develop on an annual repeat screening CT, a 1 month LDCT may be recommended to address potentially infectious or inflammatory conditions. Electronically Signed: Rush Benton MD at 0:08 EST , CC: LOUISE Maldonado; LOUISE Rios Asic Design Engineer: Signed Normal [facility] 12 Lead EKG performed by [facility] on 03-07-2024 12 Lead EKG performed by [facility] [address] [place] [address] 12 Lead EKG performed by [facility] 03/07/24 0811 MR#: [id number] Acct: [id number] Name: SARINA DIOP Rep #: [id number] : 1970 53 From: Sen Gonzales MD Attending Dr: Dr. Sen Gonzales MD Status: DE P AMB Ordering Dr: Sen Gonzales MD Date: 03/07/24 Location: [facility] Sex: F C Admitted: BMS/12 Lead EKG performed by [facility] ECG Report Interpretation S inus Rhythm -Left axis -anterior fascicular block. -Poor R-wave progression -nonspecific -consider old anterior infarct. ABNORMAL Electronically signed on 03/07/2024 at 13:[address] Sen Gonzales [employer] Version [id number] 03/07/24 1309 Date Sen Gonzales MD CC: [facility] Afia Driscoll Date Dictated: 03/07/24810 Date Transcribed: 03/07/24810 Asic Design Engineer: Signed Normal [facility] Cardiology Visit Reporton Cardiology Visit Report [facility] [place] [address] OFFICE VISIT Date of Service: 03/07/24 MR#: [id number] Acct: [id number] Name: SARINA DIOP Rep #: [id number] : 1970 Provider: Dr. Sen wise MD Age/Sex: 53/F Location: [facility] Status: Signed HPI HPI History of Present Illness Details: Patient is a 53-year-old white female that comes in today for new patient visit. The patient has been referred by Salma Skinner for palpitations. Patient reports to me that she has these palpitations that are episodic they are not associated with syncope or near syncope. She does have a history of COPD and obstructive sleep apnea treated with BiPAP she also has a history of schizophrenia. The patient's blood pressure is slightly elevated in the office today at 145/92 heart rate is 79 and regular. EKG done in the office today showed sinus rhythm at 83 bpm with poor R wave progression and left anterior fascicular block. This was really unchanged from an old EKG July. The patient was evaluated back in July 2023 when she presented with profound shortness of breath and a CTA was consistent with a left lower lobe pulmonary densities suggestive of infarctions her understanding was this was related to pulmonary emboli. Her echocardiogram done August 01, 2023 showed an EF of 65% with no regional wall motion abnormality mild to moderate global right ventricular systolic dysfunction and a mobile mass in the right atrium. Pulmonary artery systolic pressure was estimated at 60 consistent with moderate pulmonary hypertension. The patient has been maximally treated through the pulmonary department and her breathing is much better now. The patient denies any chest pain. She denies any significant lower extremity edema. And denies any syncope or near syncope. The patient does continue to smoke but she is cut down from 2-1/2 packs/day to 5 cigarettes/day. Intake Vital Signs 02/06/24 07:39 03/07/24 10:34 Height 5 ft 2 in 5 ft 2 in Weight: 262 lb 253 lb BMI 47.9 46.3 BP 167/114 H 145/92 H Blood Pressure Location Rt brachial Rt brachial Position Sitting Sitting Respiration 18 24 H Pulse 80 79 Pulse Source Monitor Monitor Temp 97.1 F L Temperature Source Temporal Artery Pulse Oximetry (%) 95 93 Oxygen Delivery Method room air room air Intake Visit Reasons: Palpitations (Maldonado) Eyeglass Fitter Required: No Accompanied by: Self Is patient in pain?: No Allergies prednisone Adverse Reaction (Verified 03/07/24 10:34) Other Sulfa (Sulfonamide Antibiotics) Adverse Reaction (Verified 03/07/24 10:34) Rash Medications ???Medication ???Instructions ???Recorded ???Confirmed ???Type valacyclovir 1 gram tablet 1,000 mg PO DAILY anti virus 08/12/18 03/07/24 History aripiprazole lauroxil 882 mg/3.2 882 [facility] 09/12/18 03/07/24 History mL suspension, ext.rel. IM syringe cholecalciferol (vitamin D3) 25 5,000 unit PO DAILY vitamin 07/02/20 03/07/24 History mcg (1,000 unit) tablet gabapentin 300 mg capsule 300 mg PO TIDCM nerve pain 07/02/20 03/07/24 History bupropion HCl 300 mg 24 hr tablet, 300 mg PO DAILY mental health 09/04/22 03/07/24 History extended release omeprazole 20 mg tablet,delayed 20 mg PO DAILY reflux 09/04/22 03/07/24 History release acetaminophen 325 mg tablet 650 mg (2 x 325 mg) PO Q4H PRN PRN 09/05/22 03/07/24 Rx Fever, pain 1-01/25 #0 tabs apixaban 5 mg tablet (Eliquis) 5 mg PO Q12H blood thinner 05/27/23 03/07/24 History diabetic supplies, miscellan. #1 ea 08/02/23 02/06/24 Rx losartan 25 mg tablet 25 mg PO DAILY #30 tabs 08/02/23 03/07/24 Rx cetirizine 10 mg tablet 10 mg PO QDAY 10/27/23 03/07/24 History albuterol sulfate 90 mcg/actuation 1 - 2 puff inhalation Q4H PRN PRN 02/06/24 03/07/24 Rx aerosol inhaler (Ventolin HFA) Wheezing ##1 budesonide 160 mcg-glycopyr 9 2 inh inhalation BID #3 ea 02/06/24 03/07/24 Rx mcg-formot 4.8 mcg/actuation HFA inhaler (Breztri Aerosphere) ipratropium 0.5 mg-albuterol 3 mg 3 ml inhalation Q4H PRN PRN SOB 02/06/24 03/07/24 Rx (2.5 mg base)/3 mL nebulization /OR WHEEZING #180 mL soln tirzepatide 12.5 mg/0.5 mL mg subcut 02/06/24 03/07/24 History subcutaneous pen injector (Mounjaro) metformin 1,000 mg tablet 1,000 mg PO BID 03/07/24 03/07/24 History Have you fallen in the past year?: No PFSH Medical History (Updated 03/07/24 @ 12:[address] Sen Gonzales MD) Hypertension Moderate chronic obstructive pulmonary disease Chronic hypoxic respiratory failure Bipolar disorder Schizophrenia Depression Diabetes Chronic pain Kidney stones Smoker BiPAP (biphasic positive airway pressure) dependence Pulmonary embolism Morbid obesity with BMI of 50.0-59.9, (more content not included)... Normal [facility] CNOVon 02-20-2024 CNOV Office Visit (OBGYWM ) SARINA DIOP ([id number]) 1970 F NFR Date Time Provider Department 02/20/24 1:20 PM SARINA NARVAEZ OBGYWMarcial During your visit today, we recorded the following information about you: Blood pressure Weight Height 160/100 120.2 kg 1.575 m Sarina Narvaez MD 02/20/2024 5:16 PM Signed Pantry Goods Maker offered: Patient declines. Adelina is a 53 year old who presents for an annual gynecologic exam without complaints. Mirena IUD due to come out in November. Wanting a new one to avoid bleeding. Does have some hot flashes. Discussed FSH before removal. If menopausal not IUD needed. Postmenopausal: unknown HRT use: No. Last Pap: 02/09/2022 normal HPV: 04/03/2018 negative History of abnormal pap: No Last mammogram: 2011 normal History of abnormal mammogram: No Sexually active: Yes OB History T0 L0 SAB0 IAB0 Ectopic0 Multiple0 Live Births0 Binder Folder Operator History LMP: 11/02/2011, IUD Age at Menarche: Age at First : Age at Menopause: Binder Folder Operator History Comments: Sexual Activity: Yes; Male Contraception: I.U.D. PAST MEDICAL HISTORY Diagnosis Date Acute hepatitis C without mention of hepatic coma(070.51) Allergic rhinitis, cause unspecified COPD (chronic obstructive pulmonary disease) (HCC) Diabetes mellitus (HCC) Esophageal reflux 03/29/2006 FIBROMYALGIA 03/12/2008 Herpes simplex without mention of complication cold sores Herpes simplex without mention of complication cold sores Reflux esophagitis controlled with nexium Schizoaffective disorder, chronic condition (HCC) Dr. Bain Tobacco use disorder 03/29/2006 PAST SURGICAL HISTORY Procedure Laterality Date ADENOIDECTOMY PRIMARY CHOLECYSTECTOMY 03/25/2004 Cholecystectomy laparoscopic PAST SURGICAL HISTORY OF lumbar pain injections FAMILY HISTORY Adopted: Yes SOCIAL HISTORY Social History Tobacco Use Smoking status: Every Day Current packs/day: 1.00 Average packs/day: 1 pack/day for 20.0 years (20.0 ttl pk-yrs) Types: Cigarettes Smokeless tobacco: Never Vaping Use Vaping status: Never Used Substance Use Topics Alcohol use: No Comment: Heavy drinker- quit in 2003 . Drank mixed drinks daily up to 7 per day. Drug use: No Comment: Hx of marijuana- quit in 2002. REVIEW OF SYSTEMS Abdomen: No abdominal pain, nausea, vomiting, diarrhea, or constipation. No bloating, early satiety, indigestion, or increased flatulence. Bladder: No dysuria, gross hematuria, urinary frequency, urinary urgency, or incontinence Breast: No breast lumps, nipple d/c, overlying skin changes, redness or skin retraction Allergies and current medication updated:Yes SENSITIVE EXAM: The sensitive examination was discussed with the Patient or Patient's Authorized Banking Services Clerk. As applicable, any other physician, advance practice provider, medical student, or other health professional student that will be observing or involved in the sensitive examination for educational or training purposes was discussed with the Patient or Authorized Banking Services Clerk. The Patient or Authorized Banking Services Clerk has agreed to proceed with the sensitive examination. (Sensitive examination includes inspection and/or palpation of the breasts, pelvis, prostate and anorectal regions). EXAM: BP 160/100 Ht 5' 2 (1.58m) Wt 265 lb (120.2kg) LMP 11/02/2011 BMI 48.46 kg/(m2). GENERAL: pleasant, female in no apparent distress HEENT: Normocephalic, atraumatic, mucus membranes moist, and no lesions NECK: Supple, full range of motion, no adenopathy, and thyroid normal DERMATOLOGY: Normal, without lesions, non-icteric, and non-hirsute BREAST: soft, non-tender, symmetric, no dominant mass, normal nipple-areolar complex, no lymphadenopathy, and no nipple discharge CHEST: Normal inspiratory effort ABDOMEN: soft, non-tender, and no masses PELVIC: external genitalia normal, normal Bartholin's glands, urethra, [place]'s glands, no vulvar lesions, no cervical lesions, good vaginal support, physiologic discharge present, normal appearing perineal body and perianal region, IUD strings visible BIMANUAL: uterus normal size, shape and consistency, no adnexal masses, and non-tender RECTOVAGINAL: rectovaginal exam negative for any masses or nodularity. NEURO: alert and oriented x3,exam grossly non-focal EXTREMITIES: normal ASSESSMENT/PLAN: 1) Health maintenance: Pap done with HPV. 2) Follow up one year or sooner as needed Sarina Narvaez MD Referring Provider: SELF [[id number]] Allergies As of Date: 02/20/2024 Noted Allergy Reaction HYDROCODONE-ACETAMINOPHEN 04/23/2008 8 - GI Upset PREDNISONE 06/13/2009 Comments: Worsening of psychiatric symptoms -- hallucinations and francheska SULFA (SULFONAMIDE ANTIBIOTICS) 08/27/2005 2 - Rash ULTRAM (TRAMADOL HCL) 07/18/2009 14 - Other: See Comments Comments: contraindic (more content not included)... Normal [facility] Pulmonary Visit Reporton Pulmonary Visit Report [facility] of [address] [place] [address] OFFICE VISIT Date of Service: 02/06/24 MR#: [id number] Acct: [id number] Name: SARINA DIOP Rep #: [id number] : 1970 Provider: LOUISE Maldonado Age/Sex: 53/F Location: [facility] Status: Signed Assessment and Plan Assessment and Plan (1) Moderate chronic obstructive pulmonary disease: Status: Chronic Plan: Stable, she does not appear to be an exacerbation of COPD today. No need for prednisone or antibiotic. Continue current maintenance medication, she is symptomatically controlled with the use of Breztri. I am providing her with a nebulizer today to use for emergency purposes. She was provided with teaching on how to put the nebulizer together and how to take the treatment. No additional testing at this time. Contact the office for any new or worsening symptoms. An acute visit and typically be arranged within 1-2 days. Follow-up in 3 months. (2) Schizophrenia: Status: Chronic Qualifiers: Schizophrenia type: unspecified Qualified Code(s): F20.9 - Schizophrenia, unspecified Plan: Complicates exam, plan, care and prognosis. (3) Morbid obesity: Status: Chronic Plan: Encourage weight loss. (4) CAMMIE (obstructive sleep apnea): Status: Chronic Plan: She has not recently been compliant with PAP therapy as the prescribed pressure was too high. I am going to send over a prescription for the recommended pressures from the recent titration study. The patient will be treated with BiPAP 15/11 cm of water. Follow-up in the office in 3 months to evaluate her response to the new pressure change. No indication for repeat titration study. She has been encouraged to contact the office with any difficulty acclimating to that pressure. (5) Palpitations: Status: Acute Plan: The patient reports experiencing occasional palpitations. She also has hypertension. It is reasonable to get cardiology on board. Referral placed. (6) Smoking greater than 20 pack years: Status: Chronic Comment: current smoker Plan: Encourage complete smoking cessation. The patient is utilizing nicotine vape trying to quit smoking. She is appropriate for LDCT, which has been ordered. Orders: Orders Low Dose CT Lung Screening Today F17.200 - Nicotine dependence, unspecified, uncomplicated, F17.210 - Nicotine dependence, cigarettes, uncomplicated Aerosol treatment (first) Today J44.9 - Chronic obstructive pulmonary disease, unspecified Referrals Cardiology R00.2 - Palpitations Medications: New ipbqnnkhqd-trhxqihc-vurculo rol 160-9-4.8 mcg/actuation (Breztri Aerosphere) 2 inhalations inhalation BID 3 ea 3RF ipratropium-albuterol 0.5 mg-3 mg(2.5 mg base)/3 mL 3 mL inhalation Q4H PRN PRN 180 mL 6RF SOB /OR WHEEZING J44.9 - Chronic obstructive pulmonary disease, unspecified Refilled albuterol sulfate 90 mcg/actuation (Ventolin HFA) 1 - 2 puffs inhalation Q4H PRN PRN #1 0RF Wheezing Plan Details Follow Up: 3 Months ([facility]) HPI HPI Comments Details: This patient reestablishes to the office today to review test results. She is ambulatory and currently on room air. She has not recently been seen in the ED or urgent care for any respiratory illness. She has not required any antibiotics or prednisone for any breathing problems. She is compliant with Breztri 2 puffs twice daily. She does report rinsing her mouth out after each use. She denies any medication side effect such as sore throat or thrush. She continues to smoke cigarettes. She is currently down to 3 cigarettes/day. She has been vaping 5-6 times daily, her vape does contain nicotine. She does have shortness of breath that is worse with exertion. She reports a cough that is productive of thick yellow sputum. She reports wheezing and chest tightness but denies any chest pain. She reports occasional palpitations, this is off-and-on. It is not new. She denies any fever, chills or body aches. She has not recently been compliant with PAP therapy. She states that the pressure of over 20 was not comfortable and she was not able to tolerate it. She tried to return the machine AGAINST MEDICAL ADVICE, however the [employer] company encouraged her to hang onto it and discuss it with me today. Test results personally viewed with patient: Titration study completed on November 24, 2023. Impression is obstructive sleep apnea. Recommendation is to treat with a BiPAP 15/7 cmH2O. No compliance report available for review today. Intake Vital Signs 10/27/23 09:01 02/06/24 07:39 Height 5 ft 2 in 5 ft 2 in Weight: 254 lb 262 lb BMI 46.4 47.9 BP 132/77 H 167/114 H Blood Pressure Location Lt brachial Rt brachial Position Sitting Sitting Respiration 30 H 18 Pulse 81 80 Pulse Source Monitor Monitor T (more content not included)... Normal [facility] CBC + DIFFon 01-05-2024 Baso # 0.03 x10EE3/UL Normal 0.00 - 0.10 [facility] Comment on above: Performed By: #### 2 [id number] #### [facility],[address] [place] [address] Basophils/100 WBC (Bld) 0.3 % Normal 0.0 - 2.0 [facility] Comment on above: Performed By: #### 2 [id number] #### [facility],[address] [place] [address] CBC + DIFF Normal [facility] Comment on above: Result Comment: CBC- COMPLETE BLOOD COUNT Performed By: #### 2 [id number] #### [facility],[address] [place] [address] EO # 0.08 x10EE3/UL Normal 0.00 - 0.50 [facility] Comment on above: Performed By: #### 2 [id number] #### [facility],[address] [place], [place] [id number] Eosinophils/100 WBC (Bld) 0.8 % Normal 0.0 - 7.0 [facility] Comment on above: Performed By: #### 2 [id number] #### [facility],[address] [place] [address] Erythrocyte distribution width (RBC) [Ratio] 15.3 % Normal 12.0 - 15.6 [facility] Comment on above: Performed By: #### 2 62025 #### [facility],[address] [place] [address] Hematocrit (Bld) [Volume fraction] 48.8 % High 34.0 - 46.0 [facility] Comment on above: Performed By: #### 2 [id number] #### [facility],[address] [place] [address] Hemoglobin (Bld) [Mass/Vol] 15.7 g/dL Normal 12.0 - 16.0 [facility] Comment on above: Performed By: #### 2 97635 #### [facility],[address] [place] [address] Lymph # 2.67 x10EE3/UL Normal 0.80 - 2.80 [facility] Comment on above: Performed By: #### 2 76037 #### [facility],[address] [place], [place] [id number] Lymphocytes/100 WBC (Bld) 27.4 % Normal 20.0 - 45.0 [facility] Comment on above: Performed By: #### 2 74536 #### [facility] [facility],[address] [place], [place] [id number] MANUAL DIFF N/A Normal [facility] Comment on above: Performed By: #### 2 [id number] #### [facility],[address] [place], [place] [id number] MCH (RBC) [Entitic mass] 28 pg Normal 27 - 33 [facility] Comment on above: Performed By: #### 2 83236 #### [facility],[address] [place] [address] MCHC 32 X10 3 Normal 32 - 36 [facility] Comment on above: Performed By: #### 2 27909 #### [facility],[address] [place] [address] MCV (RBC) [Entitic vol] 87 fL Normal 80 - 99 [facility] Comment on above: Performed By: #### 2 72971 #### [facility],[address] [place] [address] Barron # 0.70 x10EE3/UL Normal 0.20 - 1.00 [facility] Comment on above: Performed By: #### 2 94576 #### [facility],[address] [place] [address] MONOS % 7.2 % Normal 0.0 - 10.0 [facility] Comment on above: Performed By: #### 2 04346 #### [facility],[address] [place] [address] Morphology Poli (Bld) [Interp] N/A Normal [facility] Comment on above: Performed By: #### 2 09368 #### [facility],[address] [place] [address] Neut # 6.25 x10EE3/UL Normal 1.50 - 7.10 [facility] Comment on above: Performed By: #### 2 36015 #### [facility],[address] [place] [address] Neutrophils/100 WBC (Bld) 64.3 % Normal 46.0 - 76.0 [facility] Comment on above: Performed By: #### 2 47865 #### [place] [address] PLATELET 269 x10EE3/UL Normal 150 - 450 [facility] Comment on above: Performed By: #### 2 67723 #### [facility],[address],[place] [address] Platelet mean volume (Bld) [Entitic vol] 8.5 fL Normal 6.6 - 10.5 [facility] Comment on above: Result Comment: AUTO MATED DIFFERENTIAL Performed By: #### 2 51500 #### [facility],[address] [place] [address]6045 RBC 5.61 x 10EE6/UL High 4.10 - 5.30 [facility] Comment on above: Performed By: #### 2 58744 #### [facility],[address] [place] [address] 41398 WBC 9.7 x 10EE3/UL Normal 4.5 - 10.8 [facility] Comment on above: Performed By: #### 2 98000 #### [facility],[address] [place] [address] 48888 CMP with eGFRon 01-05-2024 AGE 53 years Normal [facility] Comment on above: Performed By: #### 2 77134 #### [facility],[address] [place] [address] 40694 Albumin [Mass/Vol] 3.3 g/dL Low 3.4 - 5.0 [facility] Comment on above: Performed By: #### 2 80071 #### [facility],[address] [place] [address] 85761 Albumin/Globulin [Mass ratio] 0.8 {ratio} Low 0.9 - 1.6 [facility] Comment on above: Performed By: #### 2 69452 #### [facility],[address] [place] [address] 61786 ALK PHOS 206 U/L High 46 - 116 [facility] Comment on above: Performed By: #### 2 42722 #### [facility],[address] [place] [address] 90464 ALT [Catalytic activity/Vol] 32 U/L Normal 16 - 63 [facility] Comment on above: Performed By: #### 2 61999 #### [facility],[address] [place] [address] 63920 Anion gap [Moles/Vol] 16 mmol/L Normal 10 - 20 [facility] Comment on above: Performed By: #### 2 54073 #### [facility],[address] [place] [address] 27019 AST [Catalytic activity/Vol] 23 U/L Normal 13 - 39 [facility] Comment on above: Performed By: #### 2 54007 #### [facility],[address] [place] [address] 92748 B/C RATIO 13 ratio Normal 0 - 30 [facility] Comment on above: Performed By: #### 2 43641 #### [facility],[address] [place] [address] 34466 Bilirubin [Mass/Vol] 1.5 mg/dL High 0.2 - 1.0 [facility] Comment on above: Performed By: #### 2 40410 #### [facility],[address] [place] [address] 38351 Calcium [Mass/Vol] 9.4 mg/dL Normal 8.5 - 10.1 [facility] Comment on above: Performed By: #### 2 00371 #### [facility],[address] [place] [address] 58217 Chloride [Moles/Vol] 104 mmol/L Normal 98 - 107 [facility] Comment on above: Performed By: #### 2 86547 #### [facility],[address] [place] [address] 07209 CMP with eGFR Normal [facility] Comment on above: Result Comment: COMP REHENSIVE METABOLIC PANEL Performed By: #### 2 18014 #### [facility],[address] [place] [address] 57379 CO2 [Moles/Vol] 23.8 mmol/L Normal 21.0 - 32.0 [facility] Comment on above: Performed By: #### 2 53489 #### [facility],[address] [place] [address] 24368 Creatinine [Mass/Vol] 1.08 mg/dL High 0.55 - 1.02 [facility] Comment on above: Performed By: #### 2 95444 #### [facility],[address] [place] [address] 96897 eGFR 53 ML/MINUTE Low 60 - 999 [facility] Comment on above: Performed By: #### 2 08178 #### [facility],[address] [place] [address] 50007 GFR/1.73 sq M.predicted among non-blacks MDRD (S/P/Bld) [Vol rate/Area] mL/min/{1.73_m2} Normal 60 - 999 [facility] Comment on above: Result Comment: ACCO RDING TO THE NATIONAL KIDNEY DISEASE EDUCATION PROGRAM(NKDE), A NORMAL eGFR IS A VALUE GREATER THAN OR EQUAL TO 60 ML/MIN/1.73 SQ METERS. CHRONIC KIDNEY DISEASE: <60mL/MIN/1.73 SQ METERS KIDNEY FAILURE: <15mL/MIN/1.73 SQ METERS THIS TEST SHOULD ONLY BE USED FOR PATIENTS 18 YEARS OF AGE AND OLDER. Performed By: #### 2 54713 #### [facility],[address] [place] [address] 51485 Globulin (S) [Mass/Vol] 4.3 g/dL High 1.5 - 3.8 [facility] Comment on above: Performed By: #### 2 44370 #### [facility],[address] [place] [address] 77081 Glucose [Mass/Vol] 197 mg/dL High 74 - 106 [facility] Comment on above: Performed By: #### 2 57212 #### [facility],[address] [place] [address] 48838 Potassium [Moles/Vol] 4.3 mmol/L Normal 3.5 - 5.1 [facility] Comment on above: Performed By: #### 2 90273 #### [facility],[address] [place] [address] 68124 Protein [Mass/Vol] 7.6 g/dL Normal 6.4 - 8.2 [facility] Comment on above: Performed By: #### 2 81181 #### [facility],[address] [place] [address] 15878 Sodium [Moles/Vol] 139 mmol/L Normal 136 - 145 [facility] Comment on above: Performed By: #### 2 29037 #### [facility],[address] [place] [address] 95322 Urea nitrogen [Mass/Vol] 14 mg/dL Normal 7 - 18 [facility] Comment on above: Performed By: #### 2 46845 #### [facility],[address] [place] [address] 79918 HEMOGLOBIN A1C (POM)on 01-04 Glucose [Mass/Vol] 226.0 mg/dL High 0.0 - 0.0 [facility] Comment on above: Result Comment: BLDo HEMOGLOBIN A1C REFERENCE RANGESBLDo Suggested Diagnosis HbA1c(%) HbA1C (mmol/mol Diabetic >/=6.5 >/=48 Prediabetes 5.7 - 6.4 39 - 47 Normal <5.7 <39 Performed By: #### 2 59551 #### [facility],[address] [place] [address] 78870 HbA1c (Bld) [Mass fraction] 9.5 % High 0.0 - 6.5 [facility] Comment on above: Performed By: #### 2 11668 #### [facility],[address] [place] [address] 81932 LIPID PROFILEon 01-05-2024 Cholesterol [Mass/Vol] 152 mg/dL Normal 0 - 240 [facility] Comment on above: Performed By: #### 2 23682 #### [facility],[address] [place] [address] 29793 Cholesterol in HDL [Mass/Vol] 34 mg/dL Low 40 - 60 [facility] Comment on above: Performed By: #### 2 62091 #### [facility],[address] [place] [address] 41023 Cholesterol in LDL [Mass/Vol] 93 mg/dL Normal 0 - 129 [facility] Comment on above: Performed By: #### 2 53242 #### [facility],[address] [place] [address] 76385 Cholesterol.total/Ana M sterol in HDL [Mass ratio] 4.5 {ratio} Normal 0.0 - 5.0 [facility] Comment on above: Performed By: #### 2 05121 #### [facility],[address] [place] [address] 42040 Lipid 1996 panel Normal [facility] Comment on above: Result Comment: LIPI D PROFILE Performed By: #### 2 80021 #### [facility],[address] [place], [place] [id number] Triglyceride [Mass/Vol] 125 mg/dL Normal 0 - 150 [facility] Comment on above: Performed By: #### 2 64669 #### [facility],[address] [place] [address] 07755 URINE MICROALBUMIN W/CREATIN INE, RANDOMon 01-05-2024 CREATININE UR 44.01 mg/dl Normal [facility] Comment on above: Performed By: #### 2 96306 #### [facility],[address] [place] [address] 75671 MICROALBUMIN UR 56.8 mg/dL High 0.1 - 11.6 [facility] Comment on above: Performed By: #### 2 06073 #### [facility],[address] [place] [address] 85420 UACR 1291 mg/g Normal [facility] Comment on above: Performed By: #### 2 47462 #### [facility],[address] [place] [address] 88012 Thin prep Papanicolaou smear with manual screeningOrdered By: Chino Ford on 08-02-2023 Thin prep Papanicolaou smear with manual screening 276 mg/dL 74-106 [facility] Comment on above: MANAGEMENT OF PATIEN T CARE PER NURSING PROTOCOL Absolute lymphocyte countOrd ered By: Annabelle Ayoub on 08-01-2023 Lymphocytes Auto (Unsp spec) [#/Vol] 1.92 10*3/uL 0.83-4.51 [facility] Automated lymphocyte count a s percentage of total leukocytesOrdered By: Annabelle Ayoub on 08-01-2023 Lymphocytes/100 WBC Auto (Unsp spec) 11.6 % 19-41 [facility] Basophil percentageOrdered B y: Annabelle Ayoub on 08-01-2023 Basophils/100 WBC (Bld) 0.2 % 0-1 [facility] Chloride [Moles/Vol] 99 mmol/L 98-107 [facility] Eosinophils/100 WBC (Bld) 0.1 % 0-5 [facility] Glucose [Mass/Vol] 329 mg/dL 74-106 [facility] Comment on above: Glucose result great er than or equal to 200 mg/dLsuggests DIABETES MELLITUS per A.D.A. criteria. Hemoglobin (Bld) [Mass/Vol] 13.6 g/dL 12.0-15.0 [facility] Monocytes/100 WBC (Bld) 7.0 % 0-10 [facility] Neutrophils (Bld) [#/Vol] 13.3 10*3/uL 2.0-7.7 [facility] Neutrophils/100 WBC (Bld) 79.8 % 47-70 [facility] Potassium [Moles/Vol] 4.8 mmol/L 3.5-5.1 [facility] Sodium [Moles/Vol] 132 mmol/L 136-145 [facility] WBC (Bld) [#/Vol] 16.6 10*3/uL 4.4-11.0 [facility] Determination of erythrocyte mean corpuscular volume (MCV)Ordered By: Annabelle Ayoub on 08-01-2023 MCV (RBC) [Entitic vol] 87.3 fL 81-99 [facility] Erythrocyte distribution wid th ratioOrdered By: Annabelle Ayoub on 08-01-2023 Erythrocyte distribution width (RBC) [Ratio] 16.6 % 11.6-14.6 [facility] Erythrocyte distribution wid th standard deviationOrdered By: Annabelle Ayoub on 08-01-2023 Erythrocyte distribution width (RBC) [Entitic vol] 51.9 fL 35.1-43.9 [facility] Hematocrit Auto (Bld) [Volum e fraction]Ordered By: Annabelle Ayoub on 08-01-2023 Hematocrit (Bld) [Volume fraction] 42.8 % 37-47 [facility] Immature granulocytes/100 WB C Auto (Bld)Ordered By: Annabelle Ayoub on 08-01-2023 Immature granulocytes/100 WBC (Bld) 1.300 % 0.0-0.9 [facility] Comment on above: IG% - Immature Granu locytes (promyelocytes, myelocytes and metamyelocytes) > 1% indicates that a LEFT SHIFT is Present. Laboratory - Chemistry and C hemistry - challengeOrdered By: Annabelle Ayoub on 08-01-2023 CO2 [Moles/Vol] 27.0 mmol/L 21.0-32.0 [facility] Magnesium [Mass/Vol] 1.8 mg/dL 1.6-2.6 [facility] Urea nitrogen/Creatinine [Mass ratio] 25.6 mg/mg 10-20 [facility] Laboratory - Hematology and Cell countsOrdered By: Annabelle Ayoub on 08-01-2023 MCH (RBC) [Entitic mass] 27.8 pg 27.0-32.0 [facility] MCHC (RBC) [Mass/Vol] 31.8 g/dL 32-36 [facility] Nucleated RBC/100 WBC (Bld) [Ratio] 0 % 0-5 [facility] Platelet mean volume (Bld) [Entitic vol] 9.7 fL 6.2-12.0 [facility] Platelets (Bld) [#/Vol] 393 10*3/uL 150-450 [facility] No Panel InformationOrdered By: Annabelle Ayoub on 08-01-2023 Estimated Creatinine Clearance Calc 76.91 ml/min [facility] Estimated GFR (MDRD) Amer 58 mL/min >60 [facility] Comment on above: GFR Calc Estimated GFR (MDRD) Non-Af Amer 48 mL/min >60 [facility] Comment on above: Non- GFR Calc RBC Auto (Bld) [#/Vol]Ordere d By: Annabelle Ayoub on 08-01-2023 RBC (Bld) [#/Vol] 4.90 10*6/uL 4.2-5.4 [facility] Serum or plasma calcium риина urement (mass/volume)Ordered By: Annabelle Ayoub on 08-01-2023 Calcium [Mass/Vol] 9.3 mg/dL 8.5-10.1 [facility] Serum or plasma creatinine m easurement (mass/volume)Ordered By: Annabelle Ayoub on 08-01-2023 Creatinine [Mass/Vol] 1.25 mg/dL 0.55-1.02 [facility] Comment on above: The validity of the calculated GFR & GFRAA in patients over 70 years has not been determined. Clinical correlation is essential. Serum or plasma urea nitroge n measurement (mass/volume)Ordered By: Annabelle Ayoub on 08-01-2023 Urea nitrogen [Mass/Vol] 32 mg/dL 7-18 [facility] Thin prep Papanicolaou smear with manual screeningOrdered By: Annabelle Ayoub on 08-01-2023 Thin prep Papanicolaou smear with manual screening 6 -15 [facility] Basophil percentageOrdered B y: Annabelle Ayoub on 07-31-2023 Basophil percentage 4.0 mg/dL 2.5-4.9 [facility] Bilirubin [Mass/Vol] 0.60 mg/dL 0.20-1.00 [facility] Comment on above: For patients on eltr ombopag therapy, use of Dimension [place] TBIL is not recommended. Protein [Mass/Vol] 6.7 g/dL 6.4-8.2 [facility] Laboratory - Chemistry and C hemistry - challengeOrdered By: Annabelle Ayoub on 07-31-2023 Albumin/Globulin [Mass ratio] 0.5 {ratio} 0.9-2.4 [facility] ALP [Catalytic activity/Vol] 272 U/L 45-117 [facility] ALT [Catalytic activity/Vol] 70 U/L 13-56 [facility] Globulin (S) [Mass/Vol] 4.5 g/dL 2.2-4.2 [facility] Serum or plasma thyroid stim ulating hormone (TSH) measurement (units/volume)Ordered By: Annabelle Ayoub on 07-31-2023 TSH Qn 1.20 uIU/mL 0.358-3.74 [facility] Thin prep Papanicolaou smear with manual screeningOrdered By: Annabelle Ayoub on 07-31-2023 Thin prep Papanicolaou smear with manual screening 2.2 g/dL 3.2-5.0 [facility] Thin prep Papanicolaou smear with manual screening 21 U/L 15-37 [facility] Culture, urineOrdered By: Cassandra Espinoza on 07-30-2023 Bacteria identified Cx Nom (U) Presumptive E. coli [facility] No Panel InformationOrdered By: Sergey Colon on 07-30-2023 Streptococcus pneumoniae Antigen (M [facility] Respiratory pathogens detect ion panel by molecular detection methodOrdered By: Annabelle Ayoub on 07-30-2023 Respiratory pathogens DNA and RNA panel EMBER+probe (Resp) [facility] Urine Legionella pneumophila antigen detectionOrdered By: Sergey Colon on 07-30-2023 L. pneumophila Ag Ql (U) [facility] Absolute lymphocyte countOrd ered By: Aundrea Espinoza on 07-29-2023 Lymphocytes Auto (Unsp spec) [#/Vol] 1.14 10*3/uL 0.83-4.51 [facility] Automated lymphocyte count a s percentage of total leukocytesOrdered By: Aundrea Espinoza on 07-29-2023 Lymphocytes/100 WBC Auto (Unsp spec) 9.0 % 19-41 [facility] Basophil percentageOrdered B y: Aundrea Espinoza on 07-29-2023 Lactate [Moles/Vol] 1.1 mmol/L 0.4-2.0 [facility] Basophil percentage 10-25 SEEN /hpf 0-5 [facility] Basophils/100 WBC (Bld) 0.6 % 0-1 [facility] Chloride [Moles/Vol] 99 mmol/L 98-107 [facility] Eosinophils/100 WBC (Bld) 0.3 % 0-5 [facility] Glucose [Mass/Vol] 215 mg/dL 74-106 [facility] Comment on above: Glucose result great er than or equal to 200 mg/dLsuggests DIABETES MELLITUS per A.D.A. criteria. Hemoglobin (Bld) [Mass/Vol] 14.2 g/dL 12.0-15.0 [facility] Lactate [Moles/Vol] 2.1 mmol/L 0.4-2.0 [facility] Comment on above: Critical Result(s) C alled at: 17:19:42 07/29/2023 by: Kendy Ross to Olga. Results read back by same. Monocytes/100 WBC (Bld) 6.8 % 0-10 [facility] Neutrophils (Bld) [#/Vol] 10.0 10*3/uL 2.0-7.7 [facility] Neutrophils/100 WBC (Bld) 78.9 % 47-70 [facility] Potassium [Moles/Vol] 4.8 mmol/L 3.5-5.1 [facility] Sodium [Moles/Vol] 132 mmol/L 136-145 [facility] WBC (Bld) [#/Vol] 12.7 10*3/uL 4.4-11.0 [facility] Bilirubin Test strip Ql (U)O rdered By: Aundrea Espinoza on 07-29-2023 Bilirubin Ql (U) 1 mg/dL Negative [facility] Comment on above: COLOR OF URINE MAY A FFECT DIPSTICK RESULTS. Determination of erythrocyte mean corpuscular volume (MCV)Ordered By: Aundrea Espinoza on 07-29-2023 MCV (RBC) [Entitic vol] 88.9 fL 81-99 [facility] Erythrocyte distribution wid th ratioOrdered By: Aundrea Espinoza on 07-29-2023 Erythrocyte distribution width (RBC) [Ratio] 16.5 % 11.6-14.6 [facility] Erythrocyte distribution wid th standard deviationOrdered By: Aundrea Espinoza on 07-29-2023 Erythrocyte distribution width (RBC) [Entitic vol] 53.5 fL 35.1-43.9 [facility] Hematocrit Auto (Bld) [Volum e fraction]Ordered By: Aundrea Espinoza on 07-29-2023 Hematocrit (Bld) [Volume fraction] 44.8 % 37-47 [facility] Immature granulocytes/100 WB C Auto (Bld)Ordered By: Aundrea Espinoza on 07-29-2023 Immature granulocytes/100 WBC (Bld) 4.400 % 0.0-0.9 [facility] Comment on above: IG% - Immature Granu locytes (promyelocytes, myelocytes and metamyelocytes) > 1% indicates that a LEFT SHIFT is Present. Ketones Test strip Ql (U)Ord ered By: Aundrea Espinoza on 07-29-2023 Ketones Ql (U) Negative Negative [facility] Laboratory - Chemistry and C hemistry - challengeOrdered By: Aundrea Espinoza on 07-29-2023 CO2 [Moles/Vol] 29.0 mmol/L 21.0-32.0 [facility] Natriuretic peptide B (Bld) [Mass/Vol] 266.8 pg/mL 0-100 [facility] Urea nitrogen/Creatinine [Mass ratio] 15.3 mg/mg 10-20 [facility] Laboratory - Drug toxicology Ordered By: Devin Moran on 07-29-2023 Amphetamines Ql (U) Negative <1000 ng/mL [facility] Benzodiazepines Ql (U) Negative < 200 ng/mL [facility] Cannabinoids Screen Ql (U) Negative < 50 ng/mL [facility] Cocaine Ql (U) Negative < 300 ng/mL [facility] Opiates Ql (U) Negative < 300 ng/mL [facility] Laboratory - Hematology and Cell countsOrdered By: Aundrea Espinoza on 07-29-2023 MCH (RBC) [Entitic mass] 28.2 pg 27.0-32.0 [facility] MCHC (RBC) [Mass/Vol] 31.7 g/dL 32-36 [facility] Nucleated RBC/100 WBC (Bld) [Ratio] 0 % 0-5 [facility] Platelet mean volume (Bld) [Entitic vol] 9.8 fL 6.2-12.0 [facility] Platelets (Bld) [#/Vol] 348 10*3/uL 150-450 [facility] Laboratory - Microbiology an d Antimicrobial susceptibilityOrdered By: Aundrea Espinoza on 07-29-2023 SARS-CoV-2 (COVID-19) RNA EMBER+probe Ql (Unsp spec) [facility] Mucus LM Ql (Urine sed)Order ed By: Aundrea Espinoza on 07-29-2023 Mucus Ql (Urine sed) 0 SEEN /hpf [facility] Nitrite Test strip Ql (U)Ord ered By: Aundrea Espinoza on 07-29-2023 Nitrite Ql (U) Positive Negative [facility] No Panel InformationOrdered By: Devin Moran on 07-29-2023 MDMA (Ecstasy) Screen Negative < 500 ng/mL [facility] Urine Barbiturates Screen Negative < 200 ng/mL [facility] Urine Drug Screen Comment [facility] Comment on above: CONFIRMATORY TESTING FOR ALL POSITIVE URINE DRUG SCREENRESULTS WILL ONLY BE SENT OUT UPON PHYSICIAN ORDER. VISTA Urine Drug Screen methods provide only preliminaryanalytical test results. A more specific alternate chemicalmethod must be used in order to obtain a confirmedanalytical result. Gas chromatography/mass spectrometery(GC/MS) is the preferred confirmatory method. Clinicalconsideration and professional judgement should be appliedto any drug of abuse test result, particularly whenpreliminary positive results are used. URINE TCA TESTING MUST BE ORDERED SEPARATELY. USE TESTMNEMONIC: [facility] Urine Methadone Screen Negative < 300 ng/mL [facility] No Panel InformationOrdered By: Aundrea Espinoza on 07-29-2023 Urine RBC 0-5 SEEN /hpf 0-5 [facility] Estimated Creatinine Clearance Calc 75.12 ml/min [facility] Estimated GFR (MDRD) Amer 66 mL/min >60 [facility] Comment on above: GFR Calc Estimated GFR (MDRD) Non-Af Amer 55 mL/min >60 [facility] Comment on above: Non- GFR Calc Troponin I High Sensitivity 31 pg/mL 3.0-54.0 [facility] Comment on above: Please Note: [place] t Units and Gender Specific Reference Ranges. For more information see Policy Stat Procedure [place] High Sensitivity Troponin (TNIH) and attachments. Protein Test strip Ql (U)Ord ered By: Aundrea Espinoza on 07-29-2023 Protein Ql (U) 100 mg/dl Negative [facility] RBC Auto (Bld) [#/Vol]Ordere d By: Aundrea Espinoza on 07-29-2023 RBC (Bld) [#/Vol] 5.04 10*6/uL 4.2-5.4 [facility] Serum or plasma calcium ирина urement (mass/volume)Ordered By: Aundrea Espinoza on 07-29-2023 Calcium [Mass/Vol] 9.1 mg/dL 8.5-10.1 [facility] Serum or plasma creatinine m easurement (mass/volume)Ordered By: Aundrea Espinoza on 07-29-2023 Creatinine [Mass/Vol] 1.11 mg/dL 0.55-1.02 [facility] Comment on above: The validity of the calculated GFR & GFRAA in patients over 70 years has not been determined. Clinical correlation is essential. Serum or plasma urea nitroge n measurement (mass/volume)Ordered By: Aundrea Espinoza on 07-29-2023 Urea nitrogen [Mass/Vol] 17 mg/dL 7-18 [facility] Squamous epithelial cells de tection in urine sediment by light microscopyOrdered By: Aundrea Espinoza on 07-29-2023 Epithelial cells.squamous LM Ql (Urine sed) 5-10 SEEN /hpf 5-10 [facility] Thin prep Papanicolaou smear with manual screeningOrdered By: Aundrea Espinoza on 07-29-2023 Thin prep Papanicolaou smear with manual screening 4 5-15 [facility] Urine blood detectionOrdered By: Aundrea Espinoza on 07-29-2023 RBC Ql (U) 25 /ul Negative [facility] Urine clarityOrdered By: Alanna Espinoza on 07-29-2023 Clarity (U) Sl. Cloudy Clear [facility] Urine color determinationOrd ered By: Aundrea Espinoza on 07-29-2023 Color (U) Yellow Yellow [facility] Urine glucose detectionOrder ed By: Aundrea Espinoza on 07-29-2023 Glucose Ql (U) Normal mg/dl Normal [facility] Urine leukocyte esterase det ection by dipstickOrdered By: Aundrea Espinoza on 07-29-2023 Leukocyte esterase Test strip Ql (U) 500 /ul Negative [facility] Urine pHOrdered By: Aundrea oshea on 07-29-2023 pH (U) 6.0 [pH] 5.0 - 8.0 [facility] Urine phencyclidine (PCP) de tectionOrdered By: Devin Moran on 07-29-2023 Phencyclidine Ql (U) Negative < 25 ng/mL [facility] Urine sediment bacteria coun t by microscopy (number/high power field)Ordered By: Aundrea Espinoza on 07-29-2023 Bacteria LM.HPF (Urine sed) [#/Area] 4 /[HPF] None Seen [facility] Urine specific gravity measu rementOrdered By: [facility] on 07-29-2023 Specific gravity (U) [Rel density] 1.010 1.002-1.03 0 [facility] Urine urobilinogen measureme ntOrdered By: Aundrea Espinoza on 07-29-2023 Urobilinogen Ql (U) 1 mg/dl Normal [facility] Basophil percentageOrdered B y: Nilson Green on 05-30-2023 Chloride [Moles/Vol] 109 mmol/L 98-107 [facility] Glucose [Mass/Vol] 93 mg/dL 74-106 [facility] Hemoglobin (Bld) [Mass/Vol] 13.9 g/dL 12.0-15.0 [facility] Potassium [Moles/Vol] 4.0 mmol/L 3.5-5.1 [facility] Sodium [Moles/Vol] 141 mmol/L 136-145 [facility] WBC (Bld) [#/Vol] 8.0 10*3/uL 4.4-11.0 [facility] Determination of erythrocyte mean corpuscular volume (MCV)Ordered By: Nilson Green on 05-30-2023 MCV (RBC) [Entitic vol] 94.1 fL 81-99 [facility] Erythrocyte distribution wid th ratioOrdered By: Nilson Geren on 05-30-2023 Erythrocyte distribution width (RBC) [Ratio] 15.8 % 11.6-14.6 [facility] Erythrocyte distribution wid th standard deviationOrdered By: Nilson Green on 05-30-2023 Erythrocyte distribution width (RBC) [Entitic vol] 54.2 fL 35.1-43.9 [facility] Hematocrit Auto (Bld) [Volum e fraction]Ordered By: Nilson Green on 05-30-2023 Hematocrit (Bld) [Volume fraction] 44.5 % 37-47 [facility] Laboratory - Chemistry and C hemistry - challengeOrdered By: Nilson Green on 05-30-2023 CO2 [Moles/Vol] 28.0 mmol/L 21.0-32.0 [facility] Urea nitrogen/Creatinine [Mass ratio] 23.0 mg/mg 10-20 [facility] Laboratory - Hematology and Cell countsOrdered By: Nilson Green on 05-30-2023 MCH (RBC) [Entitic mass] 29.4 pg 27.0-32.0 [facility] MCHC (RBC) [Mass/Vol] 31.2 g/dL 32-36 [facility] Platelet mean volume (Bld) [Entitic vol] 9.4 fL 6.2-12.0 [facility] Platelets (Bld) [#/Vol] 260 10*3/uL 150-450 [facility] No Panel InformationOrdered By: Nilson Green on 05-30-2023 Estimated Creatinine Clearance Calc 84.59 ml/min [facility] Estimated GFR (MDRD) Amer 75 mL/min >60 [facility] Comment on above: GFR Calc Estimated GFR (MDRD) Non-Af Amer 62 mL/min >60 [facility] Comment on above: Non- GFR Calc RBC Auto (Bld) [#/Vol]Ordere d By: Nilson Green on 05-30-2023 RBC (Bld) [#/Vol] 4.73 10*6/uL 4.2-5.4 [facility] Serum or plasma calcium ирина urement (mass/volume)Ordered By: Nilson Green on 05-30-2023 Calcium [Mass/Vol] 9.0 mg/dL 8.5-10.1 [facility] Serum or plasma creatinine m easurement (mass/volume)Ordered By: Nilson Green on 05-30-2023 Creatinine [Mass/Vol] 1.00 mg/dL 0.55-1.02 [facility] Comment on above: The validity of the calculated GFR & GFRAA in patients over 70 years has not been determined. Clinical correlation is essential. Serum or plasma urea nitroge n measurement (mass/volume)Ordered By: Nilson Green on 05-30-2023 Urea nitrogen [Mass/Vol] 23 mg/dL 7-18 [facility] Thin prep Papanicolaou smear with manual screeningOrdered By: Nilson Green on 05-30-2023 Thin prep Papanicolaou smear with manual screening 205 mg/dL 74-106 [facility] Comment on above: MANAGEMENT OF PATIEN T CARE PER NURSING PROTOCOL Thin prep Papanicolaou smear with manual screening 4 5-15 [facility] Serum or plasma trough vanco mycin levelOrdered By: Nilson Green on 05-29-2023 Vancomycin trough [Mass/Vol] 17.4 ug/mL 5.0-15.0 [facility] Comment on above: VANCOMYCIN STANDARED DRUG THERAPY TROUGH LEVEL: 5.0 - 15.0 mg/L VANCOMYCIN HIGH INTENSITY THERAPY TROUGH LEVEL: 15.0 - 20.0 mg/L High Intensity therapy recommended for serious lifethreatening infections include:- Wusgzcgmgi-Slugaamsyxek-Rxuvyvtum (Ventilator/Healtcare Associated)-Sepsis PLEASE CONTACT PHARMACY SERVICES (#[id number]) FOR INTERPRETATIONOF RESULTS. No Panel InformationOrdered By: Nilson Green on 05-28-2023 Streptococcus pneumoniae Antigen (M [facility] Streptococcus pneumoniae Antigen (M [facility] Urine Legionella pneumophila antigen detectionOrdered By: Nilson Green on 05-28-2023 L. pneumophila Ag Ql (U) [facility] L. pneumophila Ag Ql (U) [facility] Whole blood hemoglobin A1c/t otal hemoglobin ratio (mass fraction)Ordered By: Nilson Green on 05-28-2023 HbA1c (Bld) [Mass fraction] 7.0 % 3.8-5.6 [facility] Comment on above: Normal < 5.7 % Predi abetic 5.7 - 6.4 % Diabetic >or= 6.5 % Please note range changes. Absolute lymphocyte countOrd ered By: Pipe Liu on 05-27-2023 Lymphocytes Auto (Unsp spec) [#/Vol] 0.84 10*3/uL 0.83-4.51 [facility] Automated lymphocyte count a s percentage of total leukocytesOrdered By: Pipe Liu on 05-27-2023 Lymphocytes/100 WBC Auto (Unsp spec) 11.6 % 19-41 [facility] Basophil percentageOrdered B y: Pipe Liu on 05-27-2023 Basophils/100 WBC (Bld) 0.7 % 0-1 [facility] Eosinophils/100 WBC (Bld) 0.4 % 0-5 [facility] Monocytes/100 WBC (Bld) 12.6 % 0-10 [facility] Neutrophils (Bld) [#/Vol] 5.3 10*3/uL 2.0-7.7 [facility] Neutrophils/100 WBC (Bld) 73.6 % 47-70 [facility] Immature granulocytes/100 WB C Auto (Bld)Ordered By: Pipe Liu on 05-27-2023 Immature granulocytes/100 WBC (Bld) 1.100 % 0.0-0.9 [facility] Comment on above: IG% - Immature Granu locytes (promyelocytes, myelocytes and metamyelocytes) > 1% indicates that a LEFT SHIFT is Present. Laboratory - Chemistry and C hemistry - challengeOrdered By: Pipe Liu on 05-27-2023 Natriuretic peptide B (Bld) [Mass/Vol] 148.0 pg/mL 0-100 [facility] Laboratory - Hematology and Cell countsOrdered By: Pipe Liu on 05-27-2023 Nucleated RBC/100 WBC (Bld) [Ratio] 0 % 0-5 [facility] - Microbiology an d Antimicrobial susceptibilityOrdered By: Nilson Green on 05-27-2023 Bacteria identified Cx Nom (Bld) No growth in 5 days. [facility] - Microbiology an d Antimicrobial susceptibilityOrdered By: Pipe Liu on 05-27-2023 SARS-CoV-2 (COVID-19) RNA EMBER+probe Ql (Unsp spec) Influenzae A [facility] SARS-CoV-2 (COVID-19) RNA EMBER+probe Ql (Unsp spec) Influenzae A [facility] No Panel InformationOrdered By: Pipe Liu on 05-27-2023 Troponin I High Sensitivity 35 pg/mL 3.0-54.0 [facility] Comment on above: Please Note: [place] t Units and Gender Specific Reference Ranges. For more information see Policy Stat Procedure [place] High Sensitivity Troponin (TNIH) and attachments. Serum procalcitonin measurem entOrdered By: Pipe Liu on 05-27-2023 Procalcitonin [Mass/Vol] 0.15 ng/mL 0.00-0.09 [facility] Comment on above: A procalcitonin (PCT ) level above 2.0 ng/mL on the first day of ICU admission is associated with a high risk for progression to severe sepsis and/or septic shock. A PCT level below 0.5 ng/mL on the first day of ICU admission is associated with a low risk for progression to severe and/or septic shock. Note: Concentrations <0.5 ng/mL do not exclude an infection on account of localized infections (without systemic signs) which can be associated with such low concentrations, or a systemic infection in its initial stages (<6 hours). Furthermore, increased procalcitonin can occur without infection. PCT concentrations between 0.5 and 2.0 ng/mL should be interpreted taking into account the patient's history. It is recommended to retest PCT within 6-24 hours if any concentrations <2 ng/mL are obtained. Absolute lymphocyte countOrd ered By: [facility] on 10-11-2022 Lymphocytes Auto (Unsp spec) [#/Vol] 2.39 10*3/uL 0.83-4.51 [facility] Basophil percentageOrdered B y: [facility] on 10-11-2022 Basophils/100 WBC (Bld) 0.7 % 0-1 [facility] Bilirubin [Mass/Vol] 0.50 mg/dL 0.20-1.00 [facility] Comment on above: For patients on eltr ombopag therapy, use of Dimension [place] TBIL is not recommended. Chloride [Moles/Vol] 100 mmol/L 98-107 [facility] Cholesterol [Mass/Vol] 169 mg/dL <200 [facility] Comment on above: <200 mg/dL Desirable 200-240 mg/dL Borderline >240 mg/dL High Risk Eosinophils/100 WBC (Bld) 0.9 % 0-5 [facility] Glucose [Mass/Vol] 400 mg/dL 74-106 [facility] Comment on above: Glucose result great er than or equal to 200 mg/dLsuggests DIABETES MELLITUS per A.D.A. criteria. Neutrophils (Bld) [#/Vol] 6.1 10*3/uL 2.0-7.7 [facility] Neutrophils/100 WBC (Bld) 63.4 % 47-70 [facility] Potassium [Moles/Vol] 4.2 mmol/L 3.5-5.1 [facility] Protein [Mass/Vol] 7.9 g/dL 6.4-8.2 [facility] Sodium [Moles/Vol] 132 mmol/L 136-145 [facility] Triglyceride [Mass/Vol] 212 mg/dL <199 [facility] Comment on above: The drugs N-Acetylcy steine and Metamizole may falsely depress this assay.Serum Triglycerides Reference Interval Normal <150 mg/dL Borderline high 150 - 199 mg/dL High 200 - 499 mg/dL Very High > or = 500 mg/dL WBC (Bld) [#/Vol] 9.7 10*3/uL 4.4-11.0 [facility] Blood erythrocytes count (nu mber/volume)Ordered By: [facility] on 10-11-2022 RBC (Bld) [#/Vol] 4.37 10*6/uL 4.2-5.4 [facility] Blood hemoglobin measurement (mass/volume)Ordered By: [facility] on 10-11-2022 Hemoglobin (Bld) [Mass/Vol] 13.0 g/dL 12.0-15.0 [facility] Blood lymphocytes/100 leukoc ytesOrdered By: [facility] on 10-11-2022 Lymphocytes/100 WBC (Bld) 24.6 % 19-41 [facility] Blood monocytes/100 leukocyt esOrdered By: [facility] on 10-11-2022 Monocytes/100 WBC (Bld) 9.0 % 0-10 [facility] Blood platelet mean volumeOr dered By: [facility] on 10-11-2022 Platelet mean volume (Bld) [Entitic vol] 9.2 fL 6.2-12.0 [facility] Determination of erythrocyte mean corpuscular volume (MCV)Ordered By: [facility] on 10-11-2022 MCV (RBC) [Entitic vol] 94.1 fL 81-99 [facility] Hematocrit Auto (Bld) [Volum e fraction]Ordered By: [facility] on 10-11-2022 Hematocrit (Bld) [Volume fraction] 41.1 % 37-47 [facility] Laboratory - Chemistry and C hemistry - challengeOrdered By: [facility] on 10-11-2022 ALP [Catalytic activity/Vol] 97 U/L 45-117 [facility] ALT [Catalytic activity/Vol] 17 U/L 13-56 [facility] CO2 [Moles/Vol] 24.0 mmol/L 21.0-32.0 [facility] Globulin (S) [Mass/Vol] 4.9 g/dL 2.2-4.2 [facility] Urea nitrogen/Creatinine [Mass ratio] 11.2 mg/mg 10-20 [facility] Laboratory - Hematology and Cell countsOrdered By: [facility] on 10-11-2022 Erythrocyte distribution width (RBC) [Entitic vol] 48.7 fL 35.1-43.9 [facility] Erythrocyte distribution width (RBC) [Ratio] 14.0 % 11.6-14.6 [facility] Immature granulocytes/100 WBC (Bld) 1.400 % 0.0-0.9 [facility] Comment on above: IG% - Immature Granu locytes (promyelocytes, myelocytes and metamyelocytes) > 1% indicates that a LEFT SHIFT is Present. MCH (RBC) [Entitic mass] 29.7 pg 27.0-32.0 [facility] Nucleated RBC/100 WBC (Bld) [Ratio] 0 % 0-5 [facility] MCHC Auto (RBC) [Mass/Vol]Or dered By: [facility] on 10-11-2022 MCHC (RBC) [Mass/Vol] 31.6 g/dL 32-36 [facility] No Panel InformationOrdered By: [facility] on 10-11-2022 Estimated GFR (MDRD) Amer 58 mL/min >60 [facility] Comment on above: GFR Calc Estimated GFR (MDRD) Non-Af Amer 48 mL/min >60 [facility] Comment on above: Non- GFR Calc Thyroid Stimulating Hormone (TSH) 2.70 uIU/mL 0.358-3.74 [facility] Vitamin D 25-Hydroxy 54.3 ng/mL [facility] Comment on above: Vitamin D 25(OH) Sta tus Range Deficiency <20 ng/mL (50nmol/L) Insufficiency 20 - 30 ng/mL (50 - 75 nmol/L) Sufficiency 30 - 100 ng/mL (75 - 250 nmol/L) Toxicity >100 ng/mL (>250 nmol/L) Platelets bldOrdered By: JOLLY COPPOLA DURHAM on 10-11-2022 Platelets (Bld) [#/Vol] 389 10*3/uL 150-450 [facility] Serum or plasma albumin ирина urement (mass/volume)Ordered By: [facility] on 10-11-2022 Albumin [Mass/Vol] 3.0 g/dL 3.2-5.0 [facility] Serum or plasma albumin/glob ulin mass ratioOrdered By: [facility] on 10-11-2022 Albumin/Globulin [Mass ratio] 0.6 {ratio} 0.9-2.4 [facility] Serum or plasma calcium ирина urement (mass/volume)Ordered By: [facility] on 10-11-2022 Calcium [Mass/Vol] 9.3 mg/dL 8.5-10.1 [facility] Serum or plasma cholesterol in HDL measurement (mass/volume)Ordered By: [facility] on 10-11-2022 Cholesterol in HDL [Mass/Vol] 40 mg/dL >40 [facility] Comment on above: The drugs N-Acetylcy steine and Metamizole may falsely depress this assay. Reference Range HDL <40 mg/dL Low HDL Cholesterol HDL >or= 60 mg/dL High HDL Cholesterol Serum or plasma cholesterol in VLDL measurement (mass/volume)Ordered By: [facility] on 10-11-2022 Cholesterol in VLDL [Mass/Vol] 42 mg/dL 5-40 [facility] Serum or plasma creatinine m easurement (mass/volume)Ordered By: [facility] on 10-11-2022 Creatinine [Mass/Vol] 1.25 mg/dL 0.55-1.02 [facility] Comment on above: The validity of the calculated GFR & GFRAA in patients over 70 years has not been determined. Clinical correlation is essential. Serum or plasma low density lipoprotein (LDL) cholesterol measurement (mass/volume)Ordered By: [facility] on 10-11-2022 Cholesterol in LDL [Mass/Vol] 87 mg/dL 0-130 [facility] Serum or plasma urea nitroge n measurement (mass/volume)Ordered By: [facility] on 10-11-2022 Urea nitrogen [Mass/Vol] 14 mg/dL 7-18 [facility] Thin prep Papanicolaou smear with manual screeningOrdered By: [facility] on 10-11-2022 Thin prep Papanicolaou smear with manual screening 9 U/L 15-37 [facility] Thin prep Papanicolaou smear with manual screening 8 5-15 [facility] Whole blood hemoglobin A1c/t otal hemoglobin ratio (mass fraction)Ordered By: [facility] on 10-11-2022 HbA1c (Bld) [Mass fraction] 9.2 % 3.8-5.6 [facility] Comment on above: Normal < 5.7 % Predi abetic 5.7 - 6.4 % Diabetic >or= 6.5 % Please note range changes. No Panel InformationOrdered By: [facility] on 09-29-2022 Miscellaneous Test See comment [facility] Comment on above: TEST RESULTS LIMITSV enous Thrombosis ProfileHomocysteine 13.0 umol/LHomocysteine levels in patients >60 years increase 1-2umol/L.Reference Range:5.0 - 15.0Factor VIII Activity 166 High %FVIII activity can increase in a variety of clinicalsituations including normal , in samples drawn frompatients (particularly children) who are visibly stressed atthe time of phlebotomy, as acute phase reactants, or inresponse to certain drug therapies such as DDAVP.Persistently elevated FVIII activity is a risk factor forvenous thrombosis as well as recurrence of venousthrombosis. Risk is graded and increases with the degree ofelevation. Although elevated FVIII activity has beenidentified to cluster within families, a genetic basis forthe elevation has not yet been elucidated (Br J Haematol.2012; 157:653-663).Reference Range:57 - 163Antithrombin Activity,Plasma 146 High %An elevated antithrombin activity is of no known clinicalsignificance. Direct Xa inhibitor anticoagulants such asrivaroxaban, apixaban and edoxaban will lead to spuriouslyelevated antithrombin activity levels possibly masking adeficiency.Reference Range:7 months and older: 75 - 135Prt C Activity (Chromogenic) >199 High %Elevated protein C activity is of no known clinicalsignificance.Reference Range:17 years and older: 73 - 180Protein S Antigen, Free 138 %Reference Range:7 months and older: 57 - 157This test was developed and its performance characteristicsdetermined by [employer]. It has not been cleared or approvedby the Food and Drug Administration.APTT 29.2 secThis test has not been validated for monitoringunfractionated heparin therapy. aPTT-based therapeuticranges for unfractionated heparin therapy have not beenestablished. Consider ordering Heparin anti-Xa(unfractionated).Reference Range:18 years and older: 22.9 - 30.2APTT 1:1 NPTesting Not IndicatedThis test was developed and its performance characteristicsdetermined by [employer]. It has not been cleared or approvedby the [place] Food and Drug Administration.APTT 1:1 Saline Testing Not IndicatedThis test was developed and its performance characteristicsdetermined by [employer]. It has not been cleared or approvedby the [place] Food and Drug Administration.LAC InterpretationResults are interpreted as indeterminate for the presenceof a lupus anticoagulant (LA). Only one phospholipiddependent assay showed evidence of confirmation, with theDRVVT ratio falling just above the reference interval. Thistest may be falsely positive if the sample is collectedwhile the patient is on warfarin, direct Xa inhibitor, ordirect thrombin inhibitor therapy. Only persistent LA meetslaboratory diagnostic criteria for antiphospholipidsyndrome. To confirm or refute the presence of an LA and todetermine persistence, repeat testing in 12 or more weeksis recommended. Ideally, repeat testing should be performedin the absence of anticoagulant therapy. All SYED-basedantiphospholipid antibodies evaluated are normal. Pleasecontact [facility] if further clarification isneeded.Act. Prt C Resist w/FV Defic. 2.5 ratioThe APCR result may be falsely increased (masking anabnormal, low APCR result) in patients on direct Xainhibitor (e.g., rivaroxaban, apixaban, edoxaban) or adirect thrombin inhibitor (e.g., dabigatran) anticoagulanttherapy due to assay interference by these drugs.Reference Range:2.2 - 3.5DRVVT Screen Seconds 90.2 High secReference Range:<= 47.0DRVVT Confirm Seconds 57.2DRVVT Ratio 1.4 High ratioTesting while the patient is on anticoagulant therapy,including warfarin, dabigatran, or a direct Xa inhibitor maycause a false positive result.Reference Range:0.8 - 1.2Hexagonal PhospholipidNeutral 11 secThis value is NEGATIVE.This is a qualitative assay and is therefore reported aspositive for lupus anticoagulant or negative. Thequantitative value is provided as an aid in diagnosis.Reference Range:0 - 11Anticardiolipin Ab, IgG <10 GPLReference Range:Negative: <15Indeterminate: 15 - 20Low to medium positive: >20 - 80High positive: >80Anticardiolipin Ab, IgM <10 MPLReference Range:Negative: <13Indeterminate: 13 - 20Low to medium positive: >20 - 80High positive: >80Beta-2 Glycoprotein I, IgG <10 SGUThe reference interval reflects a 3SD or 99th percentileinterval.Reference Range:Negative: <21Beta-2 Glycoprotein I, IgM <10 SMUThe reference interval reflects a 3SD or 99th percentileinterval.Reference Range:Negative: <33Beta-2 Glycoprotein I, IgA <10 SAUThe reference interval reflects a 3SD or 99th percentileinterval.Reference Range:Negative: <26Factor II Gene Mutation Result G-G (Normal-Normal) No prothrombin [id number] mutation present.Interpretation: While the patient does not possess this risk factor, otherthrombotic risk factors may be detected through systematicclinical laboratory analysis.Methodology: Patient DNA was evaluated for the factor II gene mutationat nucleotide using PCR amplification followed byrestriction analysis and gel electrophoresis.Comments: Simultaneous Risks: If a patient possesses two or morecongenital or (more content not included)... Absolute lymphocyte countOrd ered By: Pipe Taylorone on 09-24-2022 Lymphocytes Auto (Unsp spec) [#/Vol] 3.56 10*3/uL 0.83-4.51 [facility] Basophil percentageOrdered B y: Pipe Taylorone on 09-24-2022 Basophils/100 WBC (Bld) 0.8 % 0-1 [facility] Chloride [Moles/Vol] 102 mmol[facility]L 98-107 [facility] Eosin[facility]/100 WBC (Bld) 1.0 % 0-5 [facility] Glucose [Mass/Vol] 231 mg/dL 74-106 [facility] Comment on above: Glucose result great er than or equal to 200 mg/dLsuggests DIABETES MELLITUS per A.D.A. criteria. Neutrophils (Bld) [#/Vol] 6.2 10*3/uL 2.0-7.7 [facility] Neutrophils/100 WBC (Bld) 58.2 % 47-70 [facility] Potassium [Moles/Vol] 4.2 mmol/L 3.5-5.1 [facility] Sodium [Moles/Vol] 135 mmol/L 136-145 [facility] WBC (Bld) [#/Vol] 10.6 10*3/uL 4.4-11.0 [facility] Blood erythrocytes count (nu mber/volume)Ordered By: Pipe Liu on 09-24-2022 RBC (Bld) [#/Vol] 4.74 10*6/uL 4.2-5.4 [facility] Blood hemoglobin measurement (mass/volume)Ordered By: Pipe Liu on 09-24-2022 Hemoglobin (Bld) [Mass/Vol] 14.2 g/dL 12.0-15.0 [facility] Blood lymphocytes/100 leukoc ytesOrdered By: Pipe Liu on 09-24-2022 Lymphocytes/100 WBC (Bld) 33.6 % 19-41 [facility] Blood monocytes/100 leukocyt esOrdered By: Pipe Liu on 09-24-2022 Monocytes/100 WBC (Bld) 5.3 % 0-10 [facility] Blood platelet mean volumeOr dered By: Pipe Liu on 09-24-2022 Platelet mean volume (Bld) [Entitic vol] 8.7 fL 6.2-12.0 [facility] Determination of erythrocyte mean corpuscular volume (MCV)Ordered By: Pipe Liu on 09-24-2022 MCV (RBC) [Entitic vol] 92.2 fL 81-99 [facility] Hematocrit Auto (Bld) [Volum e fraction]Ordered By: Pipe Liu on 06-09-2023 Hematocrit (Bld) [Volume fraction] 43.7 % 37-47 [facility] Laboratory - Chemistry and C hemistry - challengeOrdered By: Pipe Liu on 09-24-2022 CO2 [Moles/Vol] 27.0 mmol/L 21.0-32.0 [facility] Urea nitrogen/Creatinine [Mass ratio] 23.3 mg/mg 10-20 [facility] Laboratory - Hematology and Cell countsOrdered By: Pipe Liu on 09-24-2022 Erythrocyte distribution width (RBC) [Entitic vol] 45.7 fL 35.1-43.9 [facility] Erythrocyte distribution width (RBC) [Ratio] 13.3 % 11.6-14.6 [facility] Immature granulocytes/100 WBC (Bld) 1.100 % 0.0-0.9 [facility] Comment on above: IG% - Immature Granu locytes (promyelocytes, myelocytes and metamyelocytes) > 1% indicates that a LEFT SHIFT is Present. MCH (RBC) [Entitic mass] 30.0 pg 27.0-32.0 [facility] Nucleated RBC/100 WBC (Bld) [Ratio] 0 % 0-5 [facility] MCHC Auto (RBC) [Mass/Vol]Or dered By: Pipe Liu on 09-24-2022 MCHC (RBC) [Mass/Vol] 32.5 g/dL 32-36 [facility] No Panel InformationOrdered By: iPpe Liu on 09-24-2022 Estimated Creatinine Clearance Calc 50.53 ml/min [facility] Estimated GFR (MDRD) Amer 72 mL/min >60 [facility] Comment on above: GFR Calc Estimated GFR (MDRD) Non-Af Amer 60 mL/min >60 [facility] Comment on above: Non- GFR Calc Troponin I High Sensitivity 29 pg/mL 3.0-54.0 [facility] Comment on above: Please Note: [place] t Units and Gender Specific Reference Ranges. For more information see Policy Stat Procedure [place] High Sensitivity Troponin (TNIH) and attachments. Platelets bldOrdered By: Rah Liu on 09-24-2022 Platelets (Bld) [#/Vol] 366 10*3/uL 150-450 [facility] Serum or plasma calcium ирина urement (mass/volume)Ordered By: Pipe Liu on 09-24-2022 Calcium [Mass/Vol] 10.3 mg/dL 8.5-10.1 [facility] Serum or plasma creatinine m easurement (mass/volume)Ordered By: Pipe Liu on 09-24-2022 Creatinine [Mass/Vol] 1.03 mg/dL 0.55-1.02 [facility] Comment on above: The validity of the calculated GFR & GFRAA in patients over 70 years has not been determined. Clinical correlation is essential. Serum or plasma urea nitroge n measurement (mass/volume)Ordered By: Pipe Liu on 09-24-2022 Urea nitrogen [Mass/Vol] 24 mg/dL 7-18 [facility] Thin prep Papanicolaou smear with manual screeningOrdered By: Pipe Liu on 09-24-2022 Thin prep Papanicolaou smear with manual screening 6 5-15 [facility] Absolute lymphocyte countOrd ered By: Sergey Colon on 09-05-2022 Lymphocytes Auto (Unsp spec) [#/Vol] 2.97 10*3/uL 0.83-4.51 [facility] Basophil percentageOrdered B y: Sergey Colon on 09-05-2022 Basophils/100 WBC (Bld) 0.6 % 0-1 [facility] Chloride [Moles/Vol] 105 mmol/L 98-107 [facility] Eosinophils/100 WBC (Bld) 1.1 % 0-5 [facility] Glucose [Mass/Vol] 203 mg/dL 74-106 [facility] Comment on above: Glucose result great er than or equal to 200 mg/dLsuggests DIABETES MELLITUS per A.D.A. criteria. Neutrophils (Bld) [#/Vol] 5.1 10*3/uL 2.0-7.7 [facility] Neutrophils/100 WBC (Bld) 55.0 % 47-70 [facility] Potassium [Moles/Vol] 3.8 mmol/L 3.5-5.1 [facility] Sodium [Moles/Vol] 138 mmol/L 136-145 [facility] WBC (Bld) [#/Vol] 9.3 10*3/uL 4.4-11.0 [facility] Blood erythrocytes count (nu mber/volume)Ordered By: Sergey Colon on 09-05-2022 RBC (Bld) [#/Vol] 4.15 10*6/uL 4.2-5.4 [facility] Blood hemoglobin measurement (mass/volume)Ordered By: Sergey Colon on 09-05-2022 Hemoglobin (Bld) [Mass/Vol] 13.0 g/dL 12.0-15.0 [facility] Blood lymphocytes/100 leukoc ytesOrdered By: Sergey Colon on 09-05-2022 Lymphocytes/100 WBC (Bld) 32.0 % 19-41 [facility] Blood monocytes/100 leukocyt esOrdered By: Sergey Colon on 09-05-2022 Monocytes/100 WBC (Bld) 10.7 % 0-10 [facility] Blood platelet mean volumeOr dered By: Sergey Colon on 09-05-2022 Platelet mean volume (Bld) [Entitic vol] 9.5 fL 6.2-12.0 [facility] Determination of erythrocyte mean corpuscular volume (MCV)Ordered By: Sergey Colon on 09-05-2022 MCV (RBC) [Entitic vol] 96.6 fL 81-99 [facility] Hematocrit Auto (Bld) [Volum e fraction]Ordered By: Sergey Colon on 09-05-2022 Hematocrit (Bld) [Volume fraction] 40.1 % 37-47 [facility] Laboratory - Chemistry and C hemistry - challengeOrdered By: Sergey Colon on 09-05-2022 CO2 [Moles/Vol] 27.0 mmol/L 21.0-32.0 [facility] Urea nitrogen/Creatinine [Mass ratio] 17.6 mg/mg 10-20 [facility] Laboratory - CoagulationOrde red By: Guerrero Leroy on 09-05-2022 aPTT Coag (Bld) [Time] 48.3 s 24.1-36.2 [facility] - Hematology and Cell countsOrdered By: Sergey Colon on 09-05-2022 Erythrocyte distribution width (RBC) [Entitic vol] 49.2 fL 35.1-43.9 [facility] Erythrocyte distribution width (RBC) [Ratio] 13.7 % 11.6-14.6 [facility] Immature granulocytes/100 WBC (Bld) 0.600 % 0.0-0.9 [facility] Comment on above: IG% - Immature Granu locytes (promyelocytes, myelocytes and metamyelocytes) > 1% indicates that a LEFT SHIFT is Present. MCH (RBC) [Entitic mass] 31.3 pg 27.0-32.0 [facility] Nucleated RBC/100 WBC (Bld) [Ratio] 0 % 0-5 [facility] MCHC Auto (RBC) [Mass/Vol]Or dered By: Sergey Colon on 09-05-2022 MCHC (RBC) [Mass/Vol] 32.4 g/dL 32-36 [facility] No Panel InformationOrdered By: Sergey Colon on 09-05-2022 Estimated Creatinine Clearance Calc 48.74 ml/min [facility] Estimated GFR (MDRD) Amer 69 mL/min >60 [facility] Comment on above: GFR Calc Estimated GFR (MDRD) Non-Af Amer 57 mL/min >60 [facility] Comment on above: Non- GFR Calc Platelets bldOrdered By: Iggy Colon on 09-05-2022 Platelets (Bld) [#/Vol] 218 10*3/uL 150-450 [facility] Serum or plasma calcium ирина urement (mass/volume)Ordered By: Sergey Colon on 09-05-2022 Calcium [Mass/Vol] 9.6 mg/dL 8.5-10.1 [facility] Serum or plasma creatinine m easurement (mass/volume)Ordered By: Sergey Colon on 09-05-2022 Creatinine [Mass/Vol] 1.08 mg/dL 0.55-1.02 [facility] Comment on above: The validity of the calculated GFR & GFRAA in patients over 70 years has not been determined. Clinical correlation is essential. Serum or plasma urea nitroge n measurement (mass/volume)Ordered By: Sergey Colon on 09-05-2022 Urea nitrogen [Mass/Vol] 19 mg/dL 7-18 [facility] Thin prep Papanicolaou smear with manual screeningOrdered By: Sergey Colon on 09-05-2022 Thin prep Papanicolaou smear with manual screening 6 5-15 [facility] INR in Blood by Coagulation assayOrdered By: Guerrero Leroy on 09-04-2022 INR Coag (Bld) [Relative time] 0.9 {INR} [facility] Laboratory - Chemistry and C hemistry - challengeOrdered By: Guerrero Leroy on 09-04-2022 Natriuretic peptide B (Bld) [Mass/Vol] 27.1 pg/mL 0-100 [facility] Laboratory - CoagulationOrde red By: Guerrero Leroy on 09-04-2022 PT Coag (PPP) [Time] 12.0 s 11.7-14.9 [facility] No Panel InformationOrdered By: Guerrero Leroy on 09-04-2022 D-Dimer Quantitative (PE/DVT) 1.97 FEU/ug/m 0.27-0.49 [facility] Comment on above: D-Dimer ELEVATED (>0 .49): Additional studies and clinicalassessments are indicated to conclude diagnosis of:Deep Vein Thrombosis (DVT) or Pulmonary Embolism (PE)CRITICAL VALUE VERIFIED. CALLED TO DENIS WAHL09/04/22 1127 Karishma White.RESULTS READ BACK BY SAME . Troponin I High Sensitivity 15 pg/mL 3.0-54.0 [facility] Comment on above: Please Note: [place] t Units and Gender Specific Reference Ranges. For more information see Policy Stat Procedure [place] High Sensitivity Troponin (TNIH) and attachments. DISCHARGE SUMMARYon 02-03-20 17 DISCHARGE SUMMARY [facility] Discharge SummarySARINA DIOP JMRN: [id number] ACCTNUM: [id number] OF : 1970 SEX/AGE: F/46PATIENT TYPE: NFR [place] [facility] [place] LOCATION: [address] [place] [address] DATE: 12/12/2016 DISCHARGE DATE: 12/22/2016HISTORY OF PRESENT ILLNESS: Sarina is 46 years old white female with history of schizoaffectivedisorder bipolar type and chronic pain who was transferred from ICU in [facility] to [facility] after serious overdose on Percocet taking about 120 pills of 10/325 mg pills. The patient reporteddeterioration of her mood over the last few weeks prior to admission.MENTAL STATUS EXAM: Upon admission, the patient was alert, oriented x3, in mild distress. Marginallygroomed and kempt. Psychomotor activity was increased. Mood was dysphoric and affect was anxious.Speech was slow and monotonous. Her voice were soft and somewhat disorganized. Decreased eye contact.Gait was unsteady. She seemed to be in physical pain. She was preoccupied with interpersonal difficulties.There was some anhedonia and anxiety. Preoccupied with financial situation. The patient exhibitedself-defeating behavior and significant cognitive distortions. The patient was paranoid and delusional. Cognitivefunction were impaired. Memory was grossly intact. Attention and concentration were poor. Insight andjudgment were poor. Tolerates medication marginally okay. The patient represented a great risk to herself.Reality testing was impaired. The patient potential for acting out is high. No labs were done because patientcame from ICU.PHYSICAL EXAMINATION:Essentially unremarkable.HOSPITAL COURSE: The patient was admitted to [facility]. She was started on her medication namelyaripiprazole, citalopram, trazodone. The patient tolerated the medication okay. Her dosage was adjusted. Shewas given Klonopin 1 mg b.i.d. p.r.n. The patient was quite isolative and unfriendly. She did not sleep and thetrazodone dose was increased. Efforts to contact her boyfriend and mother were unfruitful. We finally got intouch with her mother in [place], who was concerned about the patient's safety if [facility] Discussed option available to her. The patient improved gradually until the time of discharge.CONDITION ON DISCHARGE: Improved.DISCHARGE INSTRUCTIONS: DC to home.ACTIVITY: Ad raz.DIET: Regular.FOLLOWUP: In [facility] on , 12/23 at 10:00 a.m. and with her psychiatriston 01/19 at 8:00 a.m. Follow up with her PCP as scheduled.FINAL DIAGNOSES:1. Schizoaffective disorder, bipolar type.2. Personality disorder, not otherwise specified.3. [address] [place] [address] Discharge SummaryPATIENT NAME: SARINA DIOP KENNETHR#: [id number] ACCTNUM: [id number] Chronic pain, stridor, chronic obstructive pulmonary disease, gastroesophageal reflux disease, narcotic use disorder status post serious suicide attempt by overdosing on narcotics.Jong Garcia Signed: JOSE GUADALUPE ABBASI MD 02/02/2017 12:02 EDTMMM:modlD: 01/25/2017 09:02:07T: 01/25/2017 09:44:23Job #: [id number] Page 2 of 1 Normal [facility] DISCHARGE SUMMARY PDF Normal [facility] HISTORY & PHYSICALon 017 HISTORY & PHYSICAL [facility] History and PhysicalSARINA ETIENNERN: [id number] ACCTNUM: [id number] OF : 1970 SEX/AGE: F/46PATIENT TYPE: [facility] [place]: LOCATION: [address] [place] [address] DATE: 12/12/2016DATE OF SERVICE: 12/13/2016LENGTH OF SESSION: 60 minutes. Discussed with staff in detail. Chart was reviewed.SUBJECTIVE: Ms. Diop is a 46-year-old white female with history of schizoaffective disorder andchronic pain, who wasDICTATION ENDS HERE Signed: JOSE GUADALUPE ABBASI MD 12/29/2016 10:19 MIRNA LunasychiatryMMM:modlD: 12/13/2016 11:10:41T: 12/13/2016 11:54:32Job #: [id number] Page 1 of 1 Normal [facility] HISTORY & PHYSICAL PDF Normal [facility] HISTORY & PHYSICAL [facility] History and PhysicalSARINA ETIENNEN: [id number] ACCTNUM: [id number] OF : 1970 SEX/AGE: F/46PATIENT TYPE: R HOSP [facility] [place]: LOCATION: [address] [place] [address] DATE: 12/12/2016DATE OF SERVICE: 12/13/2016LENGTH OF SESSION: 60 minutes. Discussed with staff in detail. Chart was reviewed.SUBJECTIVE: Ms. Diop is a 46-year-old white, female with history of schizoaffective disorder,bipolar type and chronic pain, who was transferred from the ICU Unit in [facility] afterserious overdose on Percocet taking 120 tablets of 10/325 mg pills. The patient reports deterioration of hermood over the last few weeks. Her symptoms of depression include depressed mood, anhedonia, psychomotoragitation, poor sleep, poor appetite, poor energy, hopeless, helpless, and worthless. The patient expressedsignificant guilt. She is suicidal and determine to kill herself. The patient's anxiety is very high. She deniespanic attacks lately. She has auditory hallucinations and paranoia. The patient was diagnosed withschizoaffective disorder few years back. The patient denies any OCD or PTSD. The patient had bingeingproblem, but no purging. The patient denies any nightmares or flashbacks. The patient is being seen by nursepractitioner in [place] who is seeing her regularly, but patient is known to be noncompliant and not showing upfor her appointment.CURRENT MEDICATIONS: Celexa, Abilify, trazodone, and Topamax.PAST PSYCH HISTORY: The patient was diagnosed with depression and anxiety since age 20. She receivedher 1st treatment at that time. The patient was attempted suicide twice, one in 1996 after was busted for 2 DUIsin the same year. The patient also had an overdosed on the pills at that time. The patient's next overdose wasthe recent 1 in 2 weeks ago. The patient was hospitalized several times in different hospitals in [place] and here.The patient had significant problem with noncompliance.PAST MEDICAL HISTORY: The patient had history of acid reflux and genital herpes, hypertension,hyperlipidemia , asthma. The patient had 3 herniated disks and COPD. The patient had surgery for gallbladderremoval as well as adenoid removal as a child. She also had a cyst on her tail bone was removed as an adult.The patient has also a history of headaches. The patient fractured her arm in a fall as a child. She never been and never had any abortions or miscarriages. The patient was hospitalized in [facility] andintubated for the last 6 days, before she was transferred here by ambulance for further evaluation.CURRENT MEDICATION: Include aripiprazole 30 mg daily, citalopram 40 mg daily, Protonix 40 mg daily,trazodone 100 mg at bedtime p.r.n., valacyclovir 1000 mg daily, trazodone 100 mg at bedtime p.r.n. insomnia.The patient also was on Glucophage and lisinopril in ICU.CURRENT ALLERGIES: Include sulfa.FAMILY HISTORY: The patient was adopted and she had no idea about her biological family.SOCIAL HISTORY: The patient was born in [place] and was raised there. She denies any abuse. She did notfinish high school, but got her GED. 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 The patienthas been on disability since then. She was once for 2 years at age 19 and she has no children. Thepatient has known her current boyfriend for the last 26 years. He left her in [place] and came [facility]. Shejoined him in 2010. They have been living in apartment together. Her boyfriend is not working. She spend hermoney on them. He did not try to prevent her from overdosing on Percocet when she continued to take the 120pills during the last suicide attempt. The patient was actively at [employer], but not recently. She neverserved in the . She was busted for Obsorb twice in 1996 before her 1st suicide attempt. She also wasarrested for pantoja theft.SUBSTANCE ABUSE HISTORY: The patient does not drink any alcohol. She denies any drugs either. Shesmokes 1 to 2 packet daily. She drinks 1 coffee a day as well as one soda drink. She denies any stimulants, butshe admits to being on diet pills. The patient had been abusing her narcotics. [address] [place] [address] History and PhysicalPATIENT NAME: SARINA DIOP JMR#: [id number] ACCTNUM: [id number] STATUS EXAM: The patient is alert, oriented x3, in mild distress. Marginally groomed and kempt.Psychomotor activity is increased. Mood is dysphoric and affect is anxious. Speech is slow and monotonous.Speech is soft. She was somewhat disorganized. Decreased eye contact. Gait is unsteady. Seems to besomatic pain. Preoccupied with interpersonal difficulties. There is some anhedonia and anxiety. Preoccupiedwith financial situation. The patient attempts self defeat and exhibits significant cognitive distortions. The patientis paranoid and delusional. Cognitive function are impaired. Memory is grossly intact. Attention andconcentration are poor. Insight and judgment are poor. Tolerates medication marginally okay. The patientpresents a grave risk to herself if she is not in a controlled environment. Reality testing is impaired. Thepotential for acting out is high.ASSESSMENT:1. Schizoaffective disorder, bipolar type.2. Chronic pain.3. Chronic obstructive pulmonary disease.4. Gastroesophageal reflux disease.5. .6. Narcotic use disorder.7. Status post serious overdose on narcotics.CONDITION: Unstable. The patient does represent a risk to herself or others.PLAN:1. Admit to 6100.2. We will adjust the dose of Abilify and Topamax and trazodone.3. Medication adjustment.4. Medicine consult.5. Discharge planning. Signed: JOSE GUADALUPE ABBASI MD 12/29/2016 10:17 MIRNA LunasychiatryMMM:modlD: 12/13/2016 11:31:39T: 12/13/2016 13:07:00Job #: [id number] Page 2 of 1 Normal [facility] HISTORY & PHYSICAL PDF Normal [facility] CNDSon 12-22-2016 CNDS HNO ID: [id number] thor: Jose Guadalupe NoelourService: PsychiatryAuthor Type: PhysicianType: Discharge SummariesFiled: 01/27/2017 5:46 PMNote Text:[facility] - Discharge SummaryPATIENT NAME: SARINA DIOP JMRN: [id number] CSN: [id number] OF : 1970 SEX/AGE: F/46PATIENT TYPE: I HOSP [facility] [place] LOCATION: [id number] DATE: 12/12/2016 DISCHARGE DATE: 12/22/2016HISTORY OF PRESENT ILLNESS: Sarina is a 46-year-old white divorcedfemale with history of bipolar disorder and chronic pain, who wasadmitted to 6400 from the ICU Unit in [facility]. Thepatient overdosed on Percocet taking about 120 tablets of them. Thepatient reports deterioration of her mood. She had significant problemswith everything. The patient has been using alcohol also.MENTAL STATUS EXAM: The patient is alert, oriented x3, in mild distress.Casually groomed and kempt. Psychomotor activity is increased. Mood wasdysphoric and affect was anxious. Speech was slow and monotonous. Speechwas soft. She was somewhat disorganized. There was decreased eyecontact. Gait was unsteady. She seemed to be with financial situation.Cognitive functions are impaired. Memory was grossly intact. Attentionand concentration are poor. Insight and judgment are poor. Toleratesmedication fairly. No suicidalideations, intention, or plan. No acting out.LABS: The patient came for medicine before. No labs are ordered at thistime.HOSPITAL COURSE: The patient was admitted to [facility]. She was started onalprazolam, citalopram, and trazodone. The patient was not verycompliant. She had several depressive episodes and her mood becameworse. The patient had some acetaminophen as well as Klonopin. Thepatient also took ibuprofen for herchronic pain. The patient did not respond well to smaller dose oftrazodone and the dose had to be increased that she is on sleep. Some ofher medications were changed with better results.CONDITION ON DISCHARGE: Improved.DISCHARGE INSTRUCTIONS: Activity ad raz.DIET: Regular and the patient was too very pessimistic and antagonistic.MEDICATION: Please refer to [facility].FOLLOWUP: [facility] on January 05 at 10 a.m.and [place] 8 a.m.FINAL DIAGNOSES:1. Schizoaffective disorder, bipolar type.2. Personality disorder, not otherwise specified.3. Chronic pain, stridor, chronic obstructive pulmonary disease,gastroesophageal reflux disease, narcotic use disorder, status post serious suicideattempt by overdosing on narcotics.MIRNA GarciasychiatryMMM:dorislD: 01/17/2017 13:00:16T: 01/17/2017 13:54:24Job #: [id number] Normal [facility] Vital Signs Date Time Vital Sign Value Performing Clinician Facility 11-14-2024 08:45-0400 Body mass index (BMI) [Ratio] 44.6 kg/m2 [employer] Work Phone: [facility] 11-14-2024 08:45-0400 Body temperature 96.4 [degF] [employer] Work Phone: [facility] 11-14-2024 08:45-0400 Body weight 110.67 kg [employer] Work Phone: [facility] 11-14-2024 08:45-0400 Diastolic blood pressure 87 mm[Hg] [employer] Work Phone: [facility] 11-14-2024 08:45-0400 Heart rate 77 /min [employer] Work Phone: 9(077)351-677498 [place] [address] 11-14-2024 08:45-0400 Respiratory rate 20 /min [employer] Work Phone: [facility] 11-14-2024 08:45-0400 SaO2% (BldA) [Mass fraction] 92 % [employer] Work Phone: [facility] 11-14-2024 08:45-0400 Systolic blood pressure 122 mm[Hg] [employer] Work Phone: [facility] 11-02-2024 20:17-0400 Body temperature 98.4 [degF] [employer] Work Phone: [facility] 11-02-2024 20:17-0400 Diastolic blood pressure 78 mm[Hg] [employer] Work Phone: [facility] 11-02-2024 20:17-0400 Heart rate 94 /min [employer] Work Phone: [facility] 11-02-2024 20:17-0400 Respiratory rate 16 /min [employer] Work Phone: 1(740)491-781748 [place] [address] 11-02-2024 20:17-0400 SaO2% (BldA) [Mass fraction] 100 % [employer] Work Phone: 0(067)065-281548 [place] [address] 11-02-2024 20:17-0400 Systolic blood pressure 139 mm[Hg] [employer] Work Phone: 4(278)058-538898 [place] [address] 11-02-2024 16:52-0400 Body height 157.48 cm [employer] Work Phone: 4(831)612-956748 [place] [address] 11-02-2024 16:52-0400 Body mass index (BMI) [Ratio] 46 kg/m2 [employer] Work Phone: 2(332)627-109048 [place] [address] 11-02-2024 16:52-0400 Body weight 114.3 kg [employer] Work Phone: 6(468)907-443048 [place] [address] 10-24-2024 13:01-0400 Body height 157.48 cm [employer] Work Phone: 5(901)118-082748 [place] [address] 10-24-2024 13:01-0400 Body mass index (BMI) [Ratio] 46.6 kg/m2 [employer] Work Phone: 4(356)692-307248 [place] [address] 10-24-2024 13:01-0400 Body weight 115.66 kg [employer] Work Phone: 7(492)673-273948 [place] [address] 10-24-2024 13:01-0400 Diastolic blood pressure 81 mm[Hg] [employer] Work Phone: 9(097)571-280648 [place] [address] 10-24-2024 13:01-0400 Heart rate 79 /min [employer] Work Phone: 4(694)665-291548 [place] [address] 10-24-2024 13:01-0400 SaO2% (BldA) [Mass fraction] 90 % [employer] Work Phone: 7(151)255-925448 [place] [address] 10-24-2024 13:01-0400 Systolic blood pressure 121 mm[Hg] [employer] Work Phone: [facility] 09-24-2024 10:00-0400 Body mass index (BMI) [Ratio] 47.5 kg/m2 [employer] Work Phone: [facility] 09-24-2024 10:00-0400 Body temperature 97.8 [degF] [employer] Work Phone: 3(001)977-918548 [place] [address] 09-24-2024 10:00-0400 Body weight 117.93 kg [employer] Work Phone: 9(687)427-709448 [place] [address] 09-24-2024 10:00-0400 Diastolic blood pressure 86 mm[Hg] [employer] Work Phone: 2(188)230-511848 [place] [address] 09-24-2024 10:00-0400 Heart rate 83 /min [employer] Work Phone: 1(224)819-760548 [place] [address] 09-24-2024 10:00-0400 Respiratory rate 21 /min [employer] Work Phone: 0(523)809-332448 [place] [address] 09-24-2024 10:00-0400 SaO2% (BldA) [Mass fraction] 94 % [employer] Work Phone: 3(778)889-624648 [place] [address] 09-24-2024 10:00-0400 Systolic blood pressure 142 mm[Hg] Joy Rios METAL PLATER-C Work Phone: [facility] 09-05-2024 08:20-0400 Body height 157.48 cm Joy Rios METAL PLATER-C Work Phone: 4(792)210-352748 [place] [address] 09-05-2024 08:20-0400 Body mass index (BMI) [Ratio] 47.2 kg/m2 Joy Rios [employer]AL [employer]ATER-C Work Phone: 2(109)968-719948 [place] [address] 09-05-2024 08:20-0400 Body temperature 97.3 [degF] Joy Rios METAL PLATER-C Work Phone: [facility] 09-05-2024 08:20-0400 Body weight 117.02 kg Joy Rios METAL PLATER-C Work Phone: [facility] 09-05-2024 08:20-0400 Diastolic blood pressure 93 mm[Hg] Joy Rios METAL PLATER-C Work Phone: [facility] 09-05-2024 08:20-0400 Heart rate 80 /min Joy Rios METAL [employer]ATER-C Work Phone: [facility] 09-05-2024 08:20-0400 Respiratory rate 28 /min Joy Rios METAL [employer]ATER-C Work Phone: [facility] 09-05-2024 08:20-0400 SaO2% (BldA) [Mass fraction] 93 % Joy Rios METAL [employer]ATER-C Work Phone: [facility] 09-05-2024 08:20-0400 Systolic blood pressure 145 mm[Hg] Joy Rios METAL PLATER-C Work Phone: [facility] 08-17-2024 11:19-0400 Body mass index (BMI) [Ratio] 46.4 kg/m2 Joy Rios [employer]AL [employer]ATER[employer]C Work Phone: [facility] 08-17-2024 11:19-0400 Body weight 115.21 kg Joy Rios METAL PLATER-C Work Phone: [facility] 08-17-2024 11:19-0400 Diastolic blood pressure 85 mm[Hg] Joy Rios METAL PLATER-C Work Phone: [facility] 08-17-2024 11:19-0400 Heart rate 79 /min Joy Rios METAL PLATER-C Work Phone: [facility] 08-17-2024 11:19-0400 Respiratory rate 28 /min Joy Rios METAL [employer]ATER-C Work Phone: [facility] 08-17-2024 11:19-0400 SaO2% (BldA) [Mass fraction] 91 % Joy Rios METAL PLATER-C Work Phone: [facility] 08-17-2024 11:19-0400 Systolic blood pressure 136 mm[Hg] Joy Rios METAL PLATER-C Work Phone: [facility] 08-13-2024 16:07-0400 SaO2% (BldA) [Mass fraction] 92 % Joy Rios METAL [employer]ATER-C Work Phone: [facility] 08-13-2024 13:00-0400 Body mass index (BMI) [Ratio] 47.2 kg/m2 Joy Rios METAL [employer]ATER-C Work Phone: [facility] 08-13-2024 13:00-0400 Body temperature 96.2 [degF] Joy Rios METAL PLATER-C Work Phone: [facility] 08-13-2024 13:00-0400 Body weight 117.02 kg Joy Rios METAL PLATER-C Work Phone: [facility] 08-13-2024 13:00-0400 Diastolic blood pressure 68 mm[Hg] Joy Rios METAL PLATER-C Work Phone: [facility] 08-13-2024 13:00-0400 Heart rate 77 /min Joy Rios METAL PLATER-C Work Phone: [facility] 08-13-2024 13:00-0400 Respiratory rate 20 /min Joy Rios METAL [employer]ATER-C Work Phone: [facility] 08-13-2024 13:00-0400 Systolic blood pressure 108 mm[Hg] Joy Rios METAL PLATER-C Work Phone: [facility] 07-31-2024 07:32-0400 Body mass index (BMI) [Ratio] 46.6 kg/m2 Joy Rios METAL [employer]ATER-C Work Phone: [facility] 07-31-2024 07:32-0400 Body temperature 97.4 [degF] Joy Rios METAL PLATER-C Work Phone: [facility] 07-31-2024 07:32-0400 Body weight 115.66 kg Joy Rios METAL PLATER-C Work Phone: [facility] 07-31-2024 07:32-0400 Diastolic blood pressure 67 mm[Hg] Joy Rios METAL PLATER-C Work Phone: [facility] 07-31-2024 07:32-0400 Heart rate 78 /min Joy Rios METAL PLATER-C Work Phone: [facility] 07-31-2024 07:32-0400 Respiratory rate 20 /min Joy Rios METAL [employer]ATER-C Work Phone: [facility] 07-31-2024 07:32-0400 SaO2% (BldA) [Mass fraction] 92 % Joy Rios [employer]AL [employer]ATER-C Work Phone: [facility] 07-31-2024 07:32-0400 Systolic blood pressure 103 mm[Hg] Joy Rios METAL PLATER-C Work Phone: [facility] 07-23-2024 13:13-0400 Body mass index (BMI) [Ratio] 48.1 kg/m2 Joy Rios [employer]AL [employer]ATER-C Work Phone: [facility] 07-23-2024 13:13-0400 Body weight 119.4 kg Joy Rios METAL PLATER-C Work Phone: [facility] 07-23-2024 13:13-0400 Diastolic blood pressure 85 mm[Hg] Joy Rios METAL PLATER-C Work Phone: [facility] 07-23-2024 13:13-0400 Heart rate 70 /min Joy Rios METAL [employer]ATER-C Work Phone: [facility] 07-23-2024 13:13-0400 SaO2% (BldA) [Mass fraction] 91 % Joy Rios METAL [employer]ATER-C Work Phone: [facility] 07-23-2024 13:13-0400 Systolic blood pressure 126 mm[Hg] Joy Rios METAL PLATER-C Work Phone: [facility] 04-03-2024 16:44-0500 Body temperature 98.2 [degF] Joy Rios METAL PLATER-C Work Phone: [facility] 04-03-2024 16:44-0500 Diastolic blood pressure 88 mm[Hg] Joy Rios METAL PLATER-C Work Phone: [facility] 04-03-2024 16:44-0500 Heart rate 99 /min Joy Rios METAL PLATER-C Work Phone: [facility] 04-03-2024 16:44-0500 Respiratory rate 19 /min Joy Rios METAL PLATER-C Work Phone: [facility] 04-03-2024 16:44-0500 SaO2% (BldA) [Mass fraction] 95 % Joy Rios METAL PLATER-C Work Phone: [facility] 04-03-2024 16:44-0500 Systolic blood pressure 176 mm[Hg] Joy Rios METAL PLATER-C Work Phone: [facility] 04-03-2024 12:01-0500 Body height 157.48 cm Joy Rios METAL PLATER-C Work Phone: [facility] 04-03-2024 12:01-0500 Body mass index (BMI) [Ratio] 47.5 kg/m2 Joy Rios METAL [employer]ATER-C Work Phone: [facility] 04-03-2024 12:01-0500 Body weight 117.93 kg Joy Rios METAL PLATER-C Work Phone: [facility] 04-03-2024 09:25-0500 Body mass index (BMI) [Ratio] 47.4 kg/m2 Joy Rios METAL [employer]ATER-C Work Phone: [facility] 04-03-2024 09:25-0500 Body temperature 97.1 [degF] Joy Rios METAL [employer]ATER-C Work Phone: [facility] 04-03-2024 09:25-0500 Body weight 117.65 kg Joy Rios METAL PLATER-C Work Phone: [facility] 04-03-2024 09:25-0500 Diastolic blood pressure 85 mm[Hg] Joy Rios METAL PLATER-C Work Phone: [facility] 04-03-2024 09:25-0500 Heart rate 78 /min Joy Rios METAL PLATER-C Work Phone: [facility] 04-03-2024 09:25-0500 Respiratory rate 20 /min Joy Rios METAL PLATER-C Work Phone: [facility] 04-03-2024 09:25-0500 SaO2% (BldA) [Mass fraction] 94 % Joy Rios METAL [employer]ATER-C Work Phone: [facility] 04-03-2024 09:25-0500 Systolic blood pressure 178 mm[Hg] Joy Rios METAL PLATER-C Work Phone: [facility] 03-14-2024 08:07-0500 Body mass index (BMI) [Ratio] 45.7 kg/m2 Joy Rios METAL [employer]ATER-C Work Phone: [facility] 03-14-2024 08:07-0500 Body temperature 97.6 [degF] Joy Rios METAL PLATER-C Work Phone: [facility] 03-14-2024 08:07-0500 Body weight 113.39 kg Joy Rios METAL [employer]ATER-C Work Phone: [facility] 03-14-2024 08:07-0500 Diastolic blood pressure 103 mm[Hg] Joy Rios METAL PLATER-C Work Phone: [facility] 03-14-2024 08:07-0500 Heart rate 85 /min Joy Rios METAL PLATER-C Work Phone: [facility] 03-14-2024 08:07-0500 Respiratory rate 20 /min Joy Rios METAL PLATER-C Work Phone: [facility] 03-14-2024 08:07-0500 SaO2% (BldA) [Mass fraction] 98 % Joy Rios METAL [employer]ATER-C Work Phone: [facility] 03-14-2024 08:07-0500 Systolic blood pressure 144 mm[Hg] Joy Rios METAL PLATER-C Work Phone: [facility] 02-20-2024 13:19-0500 Body height 157.5 cm Sarina Narvaez MD Work Phone: [facility] 02-20-2024 13:19-0500 Body mass index (BMI) [Ratio] 48.47 kg/m2 Sarina Narvaez MD Work Phone: [facility] 02-20-2024 13:19-0500 Body weight 120.2 kg Sarina Narvaez MD Work Phone: [facility] 02-20-2024 13:19-0500 Diastolic blood pressure 100 mm[Hg] Sarina Narvaez MD Work Phone: [facility] 02-20-2024 13:19-0500 Systolic blood pressure 160 mm[Hg] Sarina Narvaez MD Work Phone: [facility] 08-02-2023 11:00-0400 Heart rate 80 /min MET[employer]ATER[employer]C Afia Driscoll METAL PLATER Work Phone: [facility] 08-02-2023 11:00-0400 Respiratory rate 20 /min MET[employer]C Afia Driscoll METAL PLATER Work Phone: [facility] 08-02-2023 11:00-0400 SaO2% (BldA) [Mass fraction] 95 % [employer]C Afia Driscoll METAL PLATER Work Phone: [facility] 08-02-2023 05:09-0400 Body mass index (BMI) [Ratio] 63 kg/m2 [employer]C Afia Driscoll METAL PLATER Work Phone: 5(974)525-485487 [place] [address] 08-02-2023 05:09-0400 Body weight 156.4 kg [employer]C Afia Driscoll METAL PLATER Work Phone: 7(080)320-244687 [place] [address] 08-02-2023 04:16-0400 Body temperature 97.1 [degF] MET[employer]ATER[employer]C Afia Driscoll METAL PLATER Work Phone: 8(293)732-319587 [place] [address] 08-02-2023 04:16-0400 Diastolic blood pressure 99 mm[Hg] MET[employer] PLATER[employer]C Afia Driscoll METAL PLATER Work Phone: 9(689)146-923987 [place] [address] 08-02-2023 04:16-0400 Systolic blood pressure 156 mm[Hg] METAL PLATER[employer]C Afia Driscoll METAL PLATER Work Phone: 6(772)311-913687 [place] [address] 08-01-2023 22:00-0400 Inhaled oxygen flow rate 2 L/min [employer]C Afia Driscoll METAL PLATER Work Phone: 9(996)356-325687 [place] [address] 07-30-2023 13:52-0400 Body height 157.48 cm METAL PLATER[employer]C Afia Driscoll METAL PLATER Work Phone: 2(291)744-283987 [place] [address] 07-29-2023 18:29-0400 Body temperature 98.2 [degF] MET[employer]ATER[employer]C Afia Driscoll METAL PLATER Work Phone: 2(144)216-978087 [place] [address] 07-29-2023 18:29-0400 Diastolic blood pressure 93 mm[Hg] MET[employer]ATER[employer]C Afia Driscoll METAL PLATER Work Phone: 8(148)053-258187 [place] [address] 07-29-2023 18:29-0400 Heart rate 87 /min [employer]C Afia Driscoll METAL PLATER Work Phone: 2(751)040-120787 [place] [address] 07-29-2023 18:29-0400 Respiratory rate 24 /min [employer]C Afia Driscoll METAL PLATER Work Phone: 0(807)432-431487 [place] [address] 07-29-2023 18:29-0400 SaO2% (BldA) [Mass fraction] 98 % [employer]C Afia Driscoll METAL PLATER Work Phone: 8(675)261-950587 [place] [address] 07-29-2023 18:29-0400 Systolic blood pressure 141 mm[Hg] MET[employer]ATER-C Afia Driscoll METAL PLATER Work Phone: 4(758)494-030487 [place] [address] 07-29-2023 18:00-0400 Inhaled oxygen flow rate 2 L/min [employer]C Afia Driscoll METAL PLATER Work Phone: 4(779)205-950287 [place] [address] 07-29-2023 16:03-0400 Body height 157.48 cm [employer]C Afia Driscoll METAL PLATER Work Phone: 2(274)816-281087 [place] [address] 07-29-2023 16:03-0400 Body mass index (BMI) [Ratio] 50.5 kg/m2 [employer]C Afia Driscoll METAL PLATER Work Phone: 3(414)573-715687 [place] [address] 07-29-2023 16:03-0400 Body weight 125.5 kg [employer]C Afia Driscoll METAL PLATER Work Phone: 6(085)729-297887 [place] [address] 05-30-2023 13:18-0500 Body temperature 97.6 [degF] [employer]C Afia Driscoll METAL PLATER Work Phone: 6(945)966-698687 [place] [address] 05-30-2023 13:18-0500 Diastolic blood pressure 84 mm[Hg] MET[employer]ATER-C Afia Driscoll METAL PLATER Work Phone: 6(614)892-017687 [place] [address] 05-30-2023 13:18-0500 Heart rate 69 /min [employer]C Afia Driscoll METAL PLATER Work Phone: 7(002)319-552687 [place] [address] 05-30-2023 13:18-0500 Inhaled oxygen flow rate 2 L/min [employer]C Afia Driscoll METAL PLATER Work Phone: 3(081)229-242087 [place] [address] 05-30-2023 13:18-0500 Respiratory rate 20 /min [employer]C Afia Driscoll METAL PLATER Work Phone: 5(555)941-587787 [place] [address] 05-30-2023 13:18-0500 SaO2% (BldA) [Mass fraction] 96 % [employer]C Afia Driscoll METAL PLATER Work Phone: 2(637)911-498387 [place] [address] 05-30-2023 13:18-0500 Systolic blood pressure 144 mm[Hg] MET[employer]ATER-C Afia Driscoll METAL PLATER Work Phone: 5(065)058-073887 [place] [address] 05-28-2023 10:26-0500 Body height 157.48 cm METAL [employer]ATER-C Afia Driscoll METAL PLATER Work Phone: [facility] 05-28-2023 10:26-0500 Body weight 128.4 kg METAL [employer]-C Afia Driscoll METAL PLATER Work Phone: [facility] 05-27-2023 21:00-0500 Inhaled oxygen concentration 4 % [employer]C Afia Driscoll METAL PLATER Work Phone: [facility] 05-27-2023 14:31-0500 Body mass index (BMI) [Ratio] 51.7 kg/m2 MET[employer]ATER[employer]C Afia Driscoll METAL PLATER Work Phone: [facility] 11-25-2022 11:59-0400 Body height 157.[address] Guerrero Leroy Work Phone: 7(532)838-650446 [place] [address] 11-25-2022 11:59-0400 Body weight 124.[address] Guerrero Leroy Work Phone: 9(177)324-758702 [place] [address] 11-25-2022 11:59-0400 Heart rate 100 /min Dr. Guerrero Leroy Work Phone: [facility] 11-25-2022 11:59-0400 SaO2% (BldA) [Mass fraction] 94 % Dr. Guerrero Leroy Work Phone: 7(483)933-297546 [place] [address] 09-30-2022 06:11-0400 Body height 157.[address] Guerrero Leroy Work Phone: 8(109)660-133802 [place] [address] 09-30-2022 06:11-0400 Body mass index (BMI) [Ratio] 50.6 kg/m2 Dr. Guerrero Leroy Work Phone: [facility] 09-30-2022 06:11-0400 Body temperature 97 [degF] Dr. Guerrero Leroy Work Phone: 4(305)912-221046 [place] [address] 09-30-2022 06:11-0400 Body weight 125.[address] Guerrero Leroy Work Phone: 8(658)273-952946 [place] [address] 09-30-2022 06:11-0400 Diastolic blood pressure 104 mm[Hg] Dr. Guerrero Leroy Work Phone: 5(019)360-092146 [place] [address] 09-30-2022 06:11-0400 Heart rate 94 /min Dr. Guerrero Leroy Work Phone: 9(024)141-477646 [place] [address] 09-30-2022 06:11-0400 Respiratory rate 20 /min Dr. Guerrero Leroy Work Phone: 0(813)937-863002 [place] [address] 09-30-2022 06:11-0400 SaO2% (BldA) [Mass fraction] 93 % Dr. Guerrero Leroy Work Phone: 7(494)762-400402 [place] [address] 09-30-2022 06:11-0400 Systolic blood pressure 156 mm[Hg] Dr. Guerrero Leroy Work Phone: 5(710)026-809802 [place] [address] 09-24-2022 17:55-0400 Diastolic blood pressure 91 mm[Hg] Dr. Guerrero Leroy Work Phone: 5(785)251-827502 [place] [address] 09-24-2022 17:55-0400 Heart rate 87 /min Dr. Guerrero Leroy Work Phone: 0(504)144-958102 [place] [address] 09-24-2022 17:55-0400 Respiratory rate 18 /min Dr. Guerrero Leroy Work Phone: 8(193)369-199702 [place] [address] 09-24-2022 17:55-0400 SaO2% (BldA) [Mass fraction] 98 % Dr. Guerrero Leroy Work Phone: 3(978)190-798702 [place] [address] 09-24-2022 17:55-0400 Systolic blood pressure 159 mm[Hg] Dr. Guerrero Leroy Work Phone: 2(701)291-384402 [place] [address] 09-24-2022 12:51-0400 Body mass index (BMI) [Ratio] 50.6 kg/m2 Dr. Guerrero Leroy Work Phone: 1(668)115-510646 [place] [address] 09-24-2022 12:51-0400 Body temperature 98.6 [degF] Dr. Guerrero Leroy Work Phone: 2(988)823-763402 [place] [address] 09-24-2022 12:51-0400 Body weight 125.[address] Guerrero Leroy Work Phone: 0(525)546-687102 [place] [address] 09-05-2022 14:10-0400 Body temperature 97.9 [degF] Dr. Guerrero Leroy Work Phone: [facility] 09-05-2022 14:10-0400 Diastolic blood pressure 72 mm[Hg] Dr. Guerrero Leroy Work Phone: [facility] 09-05-2022 14:10-0400 Heart rate 82 /min Dr. Guerrero Leroy Work Phone: 9(743)421-678602 [place] [address] 09-05-2022 14:10-0400 Respiratory rate 18 /min Dr. Guerrero Leroy Work Phone: 2(939)498-971002 [place] [address] 09-05-2022 14:10-0400 SaO2% (BldA) [Mass fraction] 93 % Dr. Guerrero Leroy Work Phone: 9(921)646-227127 [address] 09-05-2022 14:10-0400 Systolic blood pressure 137 mm[Hg] Dr. Guerrero Leroy Work Phone: 3(002)041-861702 [place] [address] 09-05-2022 07:12-0400 Inhaled oxygen flow rate 2 L/min Dr. Guerrero Leroy Work Phone: 5(573)631-534502 [place] [address] 09-04-2022 14:15-0400 Body mass index (BMI) [Ratio] 50.3 kg/m2 Dr. Guerrero Leroy Work Phone: [facility] 09-04-2022 14:15-0400 Body weight [address] Guerrero Leroy Work Phone: [facility] 08-13-2022 13:16-0400 Diastolic blood pressure 92 mm[Hg] [facility] 08-13-2022 13:16-0400 Heart rate 89 /min [facility] 08-13-2022 13:16-0400 SaO2% (BldA) [Mass fraction] 95 % [facility] 08-13-2022 13:16-0400 Systolic blood pressure 154 mm[Hg] [facility] 08-13-2022 12:18-0400 Respiratory rate 20 /min [facility] 08-13-2022 11:03-0400 Body height 157.48 cm [facility] 04-28-2023 11:03-0400 Body mass index (BMI) [Ratio] 51.2 kg/m2 [facility] 08-13-2022 11:03-0400 Body temperature 97 [degF] [facility] 08-13-2022 11:03-0400 Body weight 127 kg [facility] 02-02-2022 08:27-0400 Body height 156.8 cm Juliette Ray MD Work Phone: [facility] 02-02-2022 08:27-0400 Body weight 129.28 kg Juliette Ray MD Work Phone: [facility] 02-02-2022 08:27-0400 Diastolic blood pressure 96 mm[Hg] Juliette Ray MD Work Phone: [facility] 02-02-2022 08:27-0400 Systolic blood pressure 144 mm[Hg] Juliette Ray MD Work Phone: [facility] Encounters Encounter Date Encounter Type Care Provider Facility Start: 11-27-2024 ambulatory Nettie Pete ty:[facility] Start: 11-23-2024 ambulatory Nettie Pete ty:[facility] Start: 11-21-2024 ambulatory Jason Kirk Facility :[facility] Start: 11-14-2024 End: 11-14-2024 Patient encounter procedure HOMERO Thurston -[facility] Work Phone: Start: 11-14-2024 End: 11-14-2024 ambulatory Joy CASTANOC Work Phone: -[facility] Start: 11-02-2024 End: 11-02-2024 Emergency department patient visit Joy CASTANOC Work Phone: -Emergency Department Work Phone: Start: 11-02-2024 End: 11-02-2024 ambulatory Joy Rios NP-C Work Phone: -Cat Scan [facility] Start: 11-02-2024 End: 11-02-2024 Patient encounter procedure HOMERO Thurston -Cat Scan [facility] Work Phone: Start: 11-02-2024 End: 11-02-2024 ambulatory Nettie Thurston Facility:[facility] Start: 10-24-2024 End: 10-24-2024 Patient encounter procedure Brandee Weems METAL PLATER-C -[facility] Work Phone: Start: 10-24-2024 End: 10-24-2024 ambulatory Joy Rios METAL PLATER-C Work Phone: -[facility] Start: 10-23-2024 End: 10-23-2024 ambulatory Joy Rios METAL PLATER-C Work Phone: -Radiology [facility] Start: 10-23-2024 End: 10-23-2024 Patient encounter procedure Teagan Estrada NP-C -Radiology [facility] Work Phone: Start: 10-23-2024 End: 10-23-2024 Patient encounter procedure Teagan Estrada NP-C -[facility] Work Phone: Start: 10-23-2024 End: 10-23-2024 ambulatory Joy Rios METAL PLATER-C Work Phone: -[facility] Start: 10-23-2024 End: 10-23-2024 ambulatory Teagan Estrada Facility:[facility] Start: 10-12-2024 ambulatory Jeanne Bishop METAL PLATER Faci lity:[facility] Start: 09-25-2024 ambulatory Nettie Thurston Facili ty:[facility] Start: 09-24-2024 End: 09-24-[address] Candy Ortiz MD -[facility] Work Phone: Start: 09-24-2024 End: 09-24-2024 ambulatory Joy Rios METAL PLATER-C Work Phone: [facility] Work Phone: Start: 09-05-2024 End: 09-05-2024 Patient encounter procedure HOMERO Thurston -[facility] Work Phone: Start: 09-05-2024 End: 09-05-2024 ambulatory Joy Rios METAL PLATER-C Work Phone: [facility] Work Phone: Start: 08-21-2024 ambulatory Nettie Thurston Facili ty:[facility] Start: 08-17-2024 End: 08-17-2024 Patient encounter procedure Anna Love METAL PLATER-C -[facility] Work Phone: Start: 08-17-2024 End: 08-17-2024 ambulatory Afia Driscoll [facility] Facility:[facility] Start: 08-13-2024 End: 08-13-[address] Candy Ortiz MD -[facility] Work Phone: Start: 08-13-2024 End: 08-13-2024 ambulatory Joy Rios NP Facility:[facility] Start: 08-10-2024 End: 08-10-2024 Patient encounter procedure Joy Rios METAL PLATER-C -Laboratory Work Phone: Start: 08-10-2024 End: 08-10-2024 ambulatory Joy Rios NP Facility:[facility] Start: 08-07-2024 ambulatory JOY RIOS [facility] Start: 07-31-2024 ambulatory Jason Kirk Facility :[facility] Start: 07-31-2024 End: 07-31-2024 Patient encounter procedure HOMERO Thurston -[facility] Work Phone: Start: 07-31-2024 End: 07-31-2024 ambulatory Nettie Thurston Facility:[facility] Start: 07-23-2024 End: 07-23-2024 Patient encounter procedure Brandee Weems METAL PLATER-C -[facility] Work Phone: Start: 07-23-2024 End: 07-23-2024 ambulatory Brandee Weems Facility:[facility] Start: 07-02-2024 End: 07-02-2024 ambulatory Joy Rios METAL PLATER-C Work Phone: [facility] Work Phone: Start: 07-02-2024 End: 07-02-2024 Patient encounter procedure HOMERO Thurston -Cat Scan, [facility] Work Phone: Start: 07-02-2024 End: 07-02-2024 ambulatory Nettie Thurston Facility:[facility] Start: 05-25-2024 End: 05-25-2024 Patient encounter procedure Teagan Estrada METAL PLATER-C -[facility] Work Phone: Start: 05-25-2024 End: 05-25-2024 ambulatory Joy Rios NP Facility:[facility] Start: 05-14-2024 End: 05-14-[address] Sen Gonzales MD -Laboratory Work Phone: Start: 05-14-2024 End: 05-14-2024 ambulatory Sen Gonzales Facility:[facility] Start: 04-20-2024 ambulatory Joy Rios METAL PLATER Facil ity:[facility] Start: 04-10-2024 End: 04-10-2024 Patient encounter procedure METAL PLATER Nettie Thurston -Sleep Lab Work Phone: Start: 04-09-2024 End: 04-10-2024 ambulatory SARINA KATYA Facility:[facility] Start: 04-09-2024 End: 04-09-2024 Subsequent hospital visit by physician Screen Mammo [facility] Wstr Mammogram Comment on above: Encounter for screen ing mammogram for breast cancer [Z12.31] Start: 04-03-2024 End: 04-03-2024 Emergency department patient visit Dr. Stefano Chan MD -Emergency Department Work Phone: Start: 04-03-2024 End: 04-03-2024 Patient encounter procedure HOMERO Thurston -[facility] Work Phone: Start: 04-03-2024 End: 04-03-2024 ambulatory Nettie Thurston Facility:[facility] Start: 03-29-2024 ambulatory Joy Rios METAL PLATER Facil ity:[facility] Start: 03-29-2024 Non-patient / Non-visit Dr. Ivonne Squires MD -[facility] Start: 03-29-2024 End: 03-29-[address] Sen Gonzales MD -Cardiovascular Services Work Phone: Start: 03-29-2024 End: 03-29-2024 ambulatory Sen Gonzales Facility:[facility] Start: 03-27-2024 End: 03-27-2024 Patient encounter procedure METAL PLATER Nettie Thurston -[facility] Start: 03-27-2024 End: 03-27-2024 ambulatory Nettie Thurston Facility:[facility] Start: 03-16-2024 Non-patient / Non-visit Dr. Yareli Gonzales MD -[facility] Work Phone: Start: 03-16-2024 ambulatory Sen Gonzales [facility] [facility] [place] Start: 03-16-[address] Leela Gonzales MD -Cardiovascular Services Work Phone: Start: 03-14-2024 End: 03-14-2024 Patient encounter procedure METAL PLATER Nettie Thurston -[facility] Work Phone: Start: 03-14-2024 End: 03-14-2024 ambulatory Nettie Thurston Facility:[facility] [place] Start: 03-09-2024 End: 03-09-2024 ambulatory Joy Rios NP Facility:[facility] Start: 03-07-2024 End: 03-07-2024 ambulatory Sen Gonzales Facility:[facility] [place] Start: 02-20-2024 End: 02-20-2024 ambulatory SARINA NARVAEZ Facility:[facility] Start: 02-20-2024 End: 02-20-2024 Patient encounter status Sarina Narvaez MD Work Phone: [facility] Work Phone: Start: 02-20-2024 End: 02-20-2024 Periodic preventive med est patient 40-64yrs Sarina Narvaez MD Work Phone: OB/Gynecology Comment on above: Encounter for gyneco logical examination (general) (routine) without abnormal findings (Primary Dx); Encounter for screening mammogram for breast cancer Start: 02-06-2024 End: 02-06-2024 ambulatory Salma Maldonado NP Facility:[facility] Start: 01-05-2024 End: 01-05-2024 ambulatory [facility] Start: 12-15-2023 End: 12-15-2023 ambulatory Salma Maldonado METAL PLATER Facility:[facility] Start: 12-09-2023 ambulatory Salma Maldonado METAL PLATER Fac ility:[facility] Start: 11-24-2023 End: 11-24-2023 ambulatory Salma Maldonado METAL PLATER Facility:[facility] Start: 08-02-2023 Non-patient / Non-visit METAL PLATER-C Leonidas Driscoll METAL PLATER Work Phone: [facility] Work Phone: Start: 08-01-2023 Non-patient / Non-visit METAL PLATER-C Leonidas Driscoll METAL PLATER Work Phone: [facility] Work Phone: Start: 08-01-2023 Non-patient / Non-visit METAL PLATER-C Leonidas Driscoll METAL PLATER Work Phone: [facility] Start: 07-31-2023 Non-patient / Non-visit METAL PLATER-C Leonidas Driscoll METAL PLATER Work Phone: [facility] Work Phone: Start: 07-30-2023 Non-patient / Non-visit METAL PLATER-C Leonidas Driscoll METAL PLATER Work Phone: [facility] Work Phone: Start: 07-29-2023 Non-patient / Non-visit METAL PLATER-C Leonidas Driscoll METAL PLATER Work Phone: [facility] Work Phone: Start: 07-29-2023 End: 08-02-2023 Evaluation and management of inpatient METAL PLATER-C Afia Driscoll METAL PLATER Work Phone: [facility] Work Phone: Start: 05-30-2023 Non-patient / Non-visit METAL PLATER-C Leonidas Driscoll METAL PLATER Work Phone: [facility] Work Phone: Start: 05-29-2023 Non-patient / Non-visit METAL PLATER-C Leonidas patiñonieves Driscoll METAL PLATER Work Phone: [facility] Work Phone: Start: 05-28-2023 Non-patient / Non-visit METAL PLATER-C Leonidas doll Carter METAL PLATER Work Phone: [facility] Work Phone: Start: 05-27-2023 End: 05-30-2023 Evaluation and management of inpatient METAL PLATER-C Afia Carter METAL PLATER Work Phone: [facility] Work Phone: Start: 12-24-2022 Non-patient / Non-visit Dr. Crowley Work Phone: [facility] Start: 12-24-2022 End: 12-24-[address] Guerrero Leroy Work Phone: [facility] Work Phone: Start: 12-24-2022 End: 12-24-[address] Guerrero Leroy Work Phone: [facility]-Pulmonary Services/Neurology Work Phone: Start: 11-26-2022 Non-patient / Non-visit Dr. Crowley Work Phone: [facility] Start: 11-25-2022 End: 11-25-[address] Guerrero Leroy Work Phone: [facility] Work Phone: Start: 11-25-2022 End: 11-25-[address] Guerrero Leroy Work Phone: [facility]-Pulmonary Services/Neurology Work Phone: Start: 11-11-2022 End: 11-11-[address] Guerrero Leroy Work Phone: [facility] Work Phone: Start: 11-11-2022 End: 11-11-[address] Guerrero Leroy Work Phone: [facility]Sleep Lab Work Phone: Start: 10-11-2022 End: 10-11-[address] Guerrero Leroy Work Phone: [facility] Work Phone: Start: 10-11-2022 End: 10-11-[address] [facility] Start: 10-08-2022 End: 10-08-[address] Guerrero Leroy Work Phone: [facility] Work Phone: Start: 10-08-2022 End: 10-08-[address] Guerrero Leroy Work Phone: [facility] Work Phone: Start: 09-30-2022 End: 09-30-[address] [facility] Ler[facility] Work Phone: Start: 09-29-2022 End: 09-29-[address] [facility]erre[facility] Ler[facility]: Start: 09-24-2022 End: 09-24-2022 Emergency department patient visit Dr. Guerrero Leroy Work Phone: [facility]-Emergency Department Work Phone: Start: 09-05-2022 Non-patient / Non-visit Dr. Crowley Work Phone: [facility] Work Phone: Start: 09-04-2022 Non-patient / Non-visit Dr. Crowley Work Phone: [facility] Work Phone: Start: 09-04-2022 End: 09-05-2022 Evaluation and management of inpatient Dr. Guerrero Leroy Work Phone: [facility] Work Phone: Start: 08-13-2022 End: 08-13-2022 Emergency department patient visit [facility] Start: 02-02-2022 End: 02-02-2022 Patient encounter procedure Juliette Ray MD Work Phone: OB/Gynecology Comment on above: Encounter for gyneco logical examination (general) (routine) without abnormal findings (Primary Dx); Pap smear for cervical cancer screening; Encounter for screening mammogram for breast cancer; Obesity, Class III, BMI >= 40; Screen for STD (sexually transmitted disease) Start: 02-02-2022 End: 02-02-2022 Patient encounter status Juliette Ray MD Work Phone: OB/Gynecology Start: 12-12-2016 End: 12-22-2016 Ambulatory [facility] Start: 12-12-2016 End: 12-22-2016 Evaluation and management of inpatient JOSE GUADALUPE ABBASI Facility:[facility] Start: 09-24-2008 End: 11-26-2011 Patient encounter status Sarina Narvaez MD Work Phone: [facility] Procedures Date Procedure Procedure Detail Performing Clinician Start: 11-02-2024 Computed tomography of abdomen and pelvis with intravenous contrast Joy CASTANOC Work Phone: Start: 11-02-2024 Estimated creatinine clearance Joy CASTANOC Work Phone: Start: 11-02-2024 CT of chest without contrast Joy CASTANOC Work Phone: Start: 10-23-2024 Plain X-ray abdomen Joy Rios METAL PLATER-C Work Phone: Start: 08-10-2024 Urine microalbumin/creatinine ratio measurement Joy Rios METAL PLATER-C Work Phone: Comment on above: Previous reported result: 926.2 mg/g CRE Edited by: MERCEDES on 10/05/24:0803 AMENDED REPORT 10/05/24 0803 MALB:CREAT previously reported as: 926.2 mg/g CRE Start: 08-10-2024 D-dimer assay, quantitative Joy pandya METAL PLATER-C Work Phone: Comment on above: D-Dimer ELEVATED (>0.49): Additional carmela dies and clinicalassessments are indicated to conclude diagnosis of:Deep Vein Thrombosis (DVT) or Pulmonary Embolism (PE) Start: 08-10-2024 Parathyroid hormone measurement Joy Rios NP-C Work Phone: Start: 08-10-2024 Vitamin D, 25-hydroxy measurement Joy Rios NP-C Work Phone: Comment on above: Vitamin D StatusDeficiency: <20 ng/mL (5 0nmol/L)Insufficiency: 20-30 ng/mL (50-75 nmol/L)Sufficiency: 30-100 ng/mL (75-250 nmol/L)Toxicity: >100 ng/mL (>250 nmol/L) Start: 07-02-2024 CT of chest without contrast Joy guardado NP-C Work Phone: Start: 05-14-2024 Measurement of renal function Joy Rios NP-C Work Phone: Comment on above: GFR Calc Start: 04-03-2024 X-ray of chest, PA and lateral views Joy Rios NP-C Work Phone: Start: 03-27-2024 Positron emission tomography with computed tomography Joy Rios NP-C Work Phone: Start: 07-30-2023 Legionella pneumophila antigen assay METAL PLATER-C Afia Driscoll METAL PLATER Work Phone: Start: 07-30-2023 Nucleic acid assay METAL PLATER-C Afia Driscoll METAL PLATER Work Phone: Start: 07-30-2023 Streptococcus pneumoniae Antigen (M METAL PLATER-C Afia Driscoll METAL PLATER Work Phone: Start: 07-30-2023 Urine culture METAL PLATER-C Afia Driscoll METAL PLATER Work Phone: Start: 07-29-2023 Plain chest X-ray METAL PLATER-C Afia Driscoll METAL PLATER Work Phone: Start: 07-29-2023 SARS-CoV-2, Influenza & RSV (PCR) METAL PLATER-C Afia Driscoll METAL PLATER Work Phone: Start: 05-28-2023 Legionella pneumophila antigen assay METAL PLATER-C Afia Driscoll METAL PLATER Work Phone: Start: 05-28-2023 Streptococcus pneumoniae Antigen (M METAL PLATER-C Afia Driscoll METAL PLATER Work Phone: Start: 05-27-2023 Bacteria identified in Blood by Culture METAL PLATER-C Afia Driscoll METAL PLATER Work Phone: Start: 05-27-2023 SARS-CoV-2, Influenza & RSV (PCR) METAL PLATER-C Afia Driscoll METAL PLATER Work Phone: Start: 05-27-2023 Plain chest X-ray METAL PLATER-C Afia Driscoll METAL PLATER Work Phone: Start: 09-24-2022 Plain chest X-ray Dr. Guerrero Leroy Work Phone: Start: 09-04-2022 CT angiography of chest with contrast Dr. Guerrero Leroy Work Phone: Start: 09-04-2022 Plain chest X-ray Dr. Guerrero Leroy Work Phone: Start: 08-13-2022 Plain chest X-ray Start: 12-15-2011 Mammography Juliette Ray MD Work Phone: Start: 06-04-2010 Lipid 1996 panel - Serum or Plasma Sarina Narvaez MD Work Phone: History of cholecystectomy Histo ry of cholecystectomy Plan of Treatment Date Care Activity Detail Author Start: 02-02-2027 Screening for malign ant neoplasm of cervix Cervical Cancer Screening [facility] Start: 02-20-2025 End: 02-20-2025 Patient encounter procedure 02/20/2025 2:20 PM EST Office Visit OB/Gynecology [address] [place] [address] Juliette Ray MD [address] [place] [address] Annual OB/Gynecology Comment on above: Annual Start: 11-02-2024 [facility] Start: 11-02-2024 CT of chest without contrast Chest without Contrast [facility] Start: 08-13-2024 Patient referral [facility] Work Phone: Start: 04-03-2024 End: 04-03-2024 [facility] Start: 04-03-2024 [facility] Start: 03-19-2024 End: 03-19-2024 Patient encounter procedure 03/19/2024 12:50 PM EST Appointment Mammogram [address] [place] [address] Encounter for screening mammogram for breast cancer [Z12.31] Mammogram Comment on above: Encounter for screen ing mammogram for breast cancer [Z12.31] Start: 02-20-2024 End: 05-21-2024 Follitropin [Units/volume] in Serum or Plasma FOLLICLE STIMULATING HORMONE Lab Routine Encounter for gynecological examination (general) (routine) without abnormal findings Expected: 02/20/2024, Expires: 05/21/2024 [facility] Comment on above: Expected: 02/20/2024 , Expires: 05/21/2024 Start: 12-18-2023 Covid-19 Vaccine ( season) Covid-19 Vaccine () [facility] Start: 12-18-2023 Influenza vaccination Influenza Vacc ine (#1) [facility] Start: 08-02-2023 Patient discharge [facility] Start: 07-30-2023 Physiotherapy of chest [facility] Start: 07-29-2023 Oxygen therapy [facility] Start: 07-29-2023 Ambulation without limitation [facility] Start: 07-29-2023 Assessment of risk o f venous thromboembolism [facility] Start: 07-29-2023 Bacteria identified in Sputum by Culture [facility] Start: 07-29-2023 Insertion of cathete r into peripheral vein [facility] Start: 07-29-2023 Providing care accor ding to [facility] Start: 07-29-2023 [facility] Start: 07-29-2023 Following clinical pathway protocol [facility] Start: 07-29-2023 Verification routine [facility] Start: 07-29-2023 Admission procedure [facility] Start: 07-29-2023 Hospital admission, emergency, from emergency room, medical nature [facility] Start: 07-29-2023 [facility] Start: 07-29-2023 Blood culture [facility] Start: 07-29-2023 [facility] Start: 07-29-2023 Bacteria identified in Blood by Culture Blood Culture [facility] Start: 07-29-2023 Inhalation therapy procedure [facility] Start: 05-30-2023 Patient discharge [facility] Start: 05-27-2023 Respiratory secretio n precautions [facility] Start: 05-27-2023 End: 05-27-2023 Blood culture [facility] Start: 05-27-2023 [facility] Start: 05-27-2023 Ambulation without limitation [facility] Start: 05-27-2023 Assessment of risk o f venous thromboembolism [facility] Start: 05-27-2023 Bacteria identified in Sputum by Culture [facility] Start: 05-27-2023 Care regimes management [facility] Start: 05-27-2023 Inhalation therapy procedure [facility] Start: 05-27-2023 Insertion of cathete r into peripheral vein [facility] Start: 05-27-2023 Notification of physician [facility] Start: 05-27-2023 Oxygen therapy [facility] Start: 05-27-2023 Providing care accor ding to [facility] Start: 05-27-2023 Referral to occupati onal therapist [facility] Start: 05-27-2023 Referral to service [facility] Start: 05-27-2023 [facility] Start: 05-27-2023 Following clinical pathway protocol [facility] Start: 05-27-2023 Bacteria identified in Blood by Culture Blood Culture [facility] Start: 05-27-2023 Verification routine [facility] Start: 05-27-2023 Admission procedure [facility] Start: 05-27-2023 Patient referral to dietitian [facility] Start: 03-29-2023 HPV TESTING HPV TESTING [facility] Start: 03-29-2023 PAP TESTING PAP TESTING [facility] Start: 11-12-2022 Oxygen therapy [facility] Start: 09-05-2022 Patient discharge [facility] Start: 09-05-2022 Oxygen therapy [facility] Start: 09-04-2022 Following clinical pathway protocol [facility] Start: 09-04-2022 Ambulation without limitation [facility] Start: 09-04-2022 Assessment of risk o f venous thromboembolism [facility] Start: 09-04-2022 Insertion of cathete r into peripheral vein [facility] Start: 09-04-2022 Measuring intake and output [facility] Start: 09-04-2022 Providing care accor ding to standard [facility] Start: 09-04-2022 [facility] Start: 09-04-2022 Admission procedure [facility] Start: 09-04-2022 Consultation [facility] Start: 09-04-2022 Inhalation therapy procedure [facility] Start: 12-17-2021 Influenza vaccination INFLUENZA (#1) [facility] Start: 04-18-2021 DEPRESSION ASSESSMENT DEPRESSION ASS ESSMENT [facility] Start: 2020 Influenza vaccination LUNG CANCER SC REENING [facility] Start: 2020 Screening for malign ant neoplasm of lung Lung Cancer Screening [facility] Start: 2020 SHINGRIX VACCINE (1 of 2) CASAS GRIX VACCINE (1 of 2) [facility] Start: 09-11-2015 COLOGUARD (FIT-DNA) COLOGUARD (FIT-D NA) [facility] Start: 09-11-2015 Colonoscopy COLONOSCOPY [facility] Start: 09-11-2015 COLORECTAL CANCER SCREENING COLORECTAL CANCER SCREENING [facility] Start: 09-11-[address] COLONOGRAPHY [facility] Start: 09-11-2015 DIABETES SCREEN DIABETES SCREEN [facility] Start: 09-11-2015 Diabetes Screening Diabetes Screenin g [facility] Start: 09-11-2015 FECAL OCCULT BLOOD FECAL OCCULT BLOO D [facility] Start: 09-11-2015 Lipid panel Lipid Screening [facility] Start: 09-11-2015 LIPID SCREEN LIPID SCREEN [facility] Start: 09-11-2015 Screening for malign ant neoplasm of colon [facility] Start: 09-11-2015 SIGMOIDOSCOPY SIGMOIDOSCOPY [facility] Start: 12-14-2012 Mammography MAMMOGRAM [facility] Start: 12-14-2012 Screening for malign ant neoplasm of breast Mammogram Screening [facility] Start: 09-02-2003 Urine microalbumin profile [facility] Start: 1989 Pneumococcal Vaccine : 50+ (1 of 2 - PCV) Pneumococcal Vaccine: 50+ (1 of 2 - PCV) [facility] Start: 1988 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 DISEASE VISIT ANNUAL PCP TEAM CHRONIC DISEASE VISIT [facility] Start: 1988 Anxiety Screening Anxiety Screening [facility] Start: 1988 BP CONTROLLED (<130/80) BP CONTROLLE D (<130/80) [facility] Start: 1988 Depression Screening Depression Scre ening [facility] Start: 1988 HIV SCREENING HIV SCREENING [facility] Start: 1988 HIV screening HIV Screening [facility] Start: 1976 PNEUMOCOCCAL (1 - PCV) PNEUMOCOCCAL (1 - PCV) [facility] Start: 1976 Pneumococcal vaccination Pneum ococcal Vaccine (1 of 2 - PCV) [facility] Start: 03-13-1971 COVID-19 VACCINE (#1) COVID-19 VACCI NE (#1) [facility] Bacteria identified in Urine by Culture [facility] Chlamydia trachomatis+Neisseria gonorrhoeae DNA [Presence] in Unspecified specimen by EMBER with probe detection GC/CHLAMYDIA DNA DET Lab Routine Screen for STD (sexually transmitted disease) 02/02/2022 10:29 AM EDT [facility] Work Phone: End: 03-21-2025 DBT Breast - bilateral screening [facility]ITH SCREENING [facility] Radiology Routine Encounter for screening mammogram for breast cancer 1 Occurrences starting 02/20/2024 until 03/21/2025 [facility] Work Phone: Comment on above: 1 Occurrences starti ng 02/20/2024 until 03/21/2025 DBT Breast - bilater al screening LAITH SCREENING W [facility] Radiology Routine Encounter for screening mammogram for breast cancer 04/09/2024 11:45 AM EST [facility] Work Phone: Elastase.pancreatic [Presence] in Stool [facility] Exercise tolerance test [facility] Measurement of respiratory function [facility] Measurement of respiratory function [facility] Nucleic acid assay [facility] PAP FLUID CERVICAL SCREENING PAP FLUID CERVICAL SCREENING Lab Routine Encounter for gynecological examination (general) (routine) without abnormal findings Pap smear for cervical cancer screening 02/02/2022 10:29 AM EDT [facility] Work Phone: Partial thromboplast in time, activated [facility] Patient Education [facility] Work Phone: Patient referral [facility] Work Phone: Platelets [#/volume] in Blood [facility] Positron emission tomography with computed tomography [facility] Protein measurement [facility] Prothrombin time [facility] End: 03-04-2023 Screening mammography bi 2-view breast inc cad [facility]ITH SCREENING Radiology Routine Encounter for gynecological examination (general) (routine) without abnormal findings Encounter for screening mammogram for breast cancer 1 Occurrences starting 02/02/2022 until 03/04/2023 [facility] Work Phone: Comment on above: 1 Occurrences starti ng 02/02/2022 until 03/04/2023 T VAGINALIS AMPLIFICATION T VAGI NALIS AMPLIFICATION Lab Routine Screen for STD (sexually transmitted disease) 02/02/2022 10:29 AM EDT [facility] Work Phone: Tobacco use cessatio n education [facility] Vancomycin [Mass/vol ume] in Serum or Plasma --trough [facility] Walking distance 6 minutes [facility] XR Abdomen Single view [facility] XR Ankle GE 3 Views [facility] XR Knee GE 4 [facility] Immunizations Immunization Date Immunization Notes Care Provider Shadia chun 03-12-2008 hepatitis A vaccine, unspecified formulation Juliette Ray MD Work Phone: [facility] 03-12-2008 hepatitis B vaccine, adult dosage Juliette Ray MD Work Phone: [facility] 01-16-2007 hepatitis B vaccine, adult dosage Juliette Ray MD Work Phone: [facility] 12-21-2006 hepatitis A vaccine, unspecified formulation Juliette Ray MD Work Phone: [facility] Work Phone: 12-21-2006 hepatitis B vaccine, adult dosage Juliette Ray MD Work Phone: [facility] Work Phone: 09-01-2003 tetanus and diphther ia toxoids, adsorbed, preservative free, for adult use (2 Lf of tetanus toxoid and 2 Lf of diphtheria toxoid) Juliette Ray MD Work Phone: [facility] Work Phone: Payers Date Payer Category Payer Self-pay [id number] 2023 Unknown [id number] 2023 Unknown [id number] 2016 Medicaid [employer] [id number] 2016-Present [phone] [address] [place] [address] Medicaid [id number] 2016 Medicare [id number] 2016 Unknown [id number] 1970 Unknown [id number] 2.16.840.1.796798.3.579.2.651 Unknown [id number] 2.16840.1.711638.3.579.2.462 Unknown [id number] 2.840.1.800795.3.579.2.462 Unknown [id number] 2.16840.1.968490.3.579.2.462 Unknown [id number] 2.840.1.157789.3.579.2.462 Unknown [id number] 2.840.1.244244.3.579.2.462 Unknown [id number] 2.840.1.593071.3.579.2.462 Unknown [id number] 2.840.1.546973.3.579.2.462 Unknown [id number] 2.840.1.056520.3.579.2.462 Unknown [id number] 2.840.1.721322.3.579.2.462 Unknown [id number] 2.840.1.076526.3.579.2.462 Unknown [id number] 2.840.1.510941.3.579.2.462 Unknown [id number] 2.840.1.355137.3.579.2.462 Unknown [id number] 2.840.1.113823.3.579.2.462 Unknown [id number] 2.840.1.902584.3.579.2.462 Unknown [id number] 2.840.1.674305.3.579.2.462 Unknown [id number] 2.840.1.723603.3.579.2.462 Unknown [id number] 2.840.1.840970.3.579.2.462 Unknown [id number] 2.840.1.885697.3.579.2.462 Unknown [id number] 2.840.1.849820.3.579.2.462 Unknown [id number] 2.16.840.1.999225.3.579.2.462 Unknown [id number] 2.16.840.1.087969.3.579.2.462 Unknown [id number] 2.16.840.1.012422.3.579.2.462 Unknown [id number] 2.16840.1.609616.3.579.2.462 Unknown [id number] 2.16840.1.647062.3.579.2.462 Unknown [id number] 2.840.1.978052.3.579.2.462 Unknown [id number] 2.840.1.341679.3.579.2.462 Unknown [id number] 2.840.1.636182.3.579.2.462 Unknown [id number] 2.840.1.471338.3.579.2.462 Unknown [id number] 2.840.1.184669.3.579.2.462 Unknown [id number] 2.840.1.651379.3.579.2.462 Unknown [id number] 2.840.1.803216.3.579.2.462 Unknown [id number] 2.840.1.005633.3.579.2.462 Unknown [id number] 2.840.1.930898.3.579.2.462 Unknown [id number] 2.840.1.719960.3.579.2.462 Unknown [id number] 2.16.840.1.827866.3.579.2.462 Unknown [id number] Unknown [id number] Unknown [id number] Unknown [id number] Social History Date Type Detail Facility Start: 02-02-2022 End: 11-02-2024 Tobacco smoking status NHIS Smokes tobacco daily [facility] History of tobacco use Cigarette Smoker C [facility] Start: 02-02-2022 End: 02-13-2024 Cigarettes smoked current (pack per day) - Reported 1 [facility] Start: 02-02-2022 Tobacco use and exposure Smoke less tobacco non-user [facility] Start: 02-02-2022 End: 02-20-2024 Alcohol intake Current non-drinker of alcohol (finding) [facility] Start: 05-17-2007 Alcohol Comment heavy drinker- quit 2003 . Drank mixed drinks daily up to 7 per day [facility] Start: 1970 Sex Assigned At Female [facility] Start: 01-23-2022 End: 02-02-2022 Exposure to SARS-CoV-2 (event) Not sure [facility] Start: 08-13-2022 End: 07-30-2023 Tobacco smoking status NHIS Unknown if ever smoked [facility] Start: 08-13-2018 Rare [facility] Start: 08-13-2018 Marijuana;- [facility] Start: 08-13-2018 Spouse/ Signif icant Other [facility] Start: 12-30-2016 Cigarettes [facility] Start: 02-13-2024 End: 02-20-2024 Tobacco use panel [facility] National Score (1-10 0), lower number is lower risk 80 [facility] Start: 12-31-2021 Gender identity Identifies as female gender (finding) [facility] Start: 12-31-2021 Sexual orientation Bisexual (finding ) [facility] Start: 05-25-2024 Tobacco smoking stat us NHIS Ex-smoker (finding) [facility] Start: 07-10-2024 Sex Female (finding) [facility] Medical Equipment Procedure Code Equipment Code Equipment Origin al Text Equipment Identifier Dates Blood Sugar Diagnostic (Onetouch Verio Test Strips) strip Start: 08-08-2024 Blood Sugar Diagnostic (Onetouch Verio Test Strips) strip Start: 08-08-2024 Blood Sugar Diagnostic (Onetouch Verio Test Strips) strip Start: 08-08-2024 Blood Sugar Diagnostic (Onetouch Verio Test Strips) strip Start: 08-08-2024 Blood Sugar Diagnostic (Onetouch Verio Test Strips) strip Start: 08-08-2024 Blood Sugar Diagnostic (Onetouch Verio Test Strips) strip Start: 08-08-2024 Blood Sugar Diagnostic (Onetouch Verio Test Strips) strip Start: 08-08-2024 Blood Sugar Diagnostic (Onetouch Verio Test Strips) strip Start: 08-08-2024 Goals Date Patient Goal Desired Activity /State Functional Status Date Assessment Result Facility 08-02-2023 Functional status Up ad raz [facility] Work Phone: 05-30-2023 Functional status Ambulates [facility] Work Phone: 09-05-2022 Functional status Ambulates;Up a d raz;Chair;Bathroom Privilege;Active [employer] [facility] Work Phone: Mental Status Date Assessment Result Facility 04-03-2024 Cognitive function Level Of Cons ciousness Awake;Alert;Appropriate;Follow s Commands [facility] Work Phone: 08-02-2023 Cognitive function Appropriate;Cooperativ e [facility] Work Phone: 08-01-2023 Cognitive function Arousable To Voice/Nam e [facility] Work Phone: 05-30-2023 Cognitive function Voice/Name [facility] Work Phone: 09-05-2022 Cognitive function Voice/Name [facility] Work Phone: Clinical Notes 12-02-2011 to 11-04-2024 Note Date & Type Note Facility 11-04-2024 Radiology Diagnostic study note [facility] Imaging Services [address] [place] [address] Chest without Contrast MR#: [id number] Acct: [id number] Name: SARINA DIOP #: [id number] : 1970 F 54 From: Stas Conn DO PCP: Dr. Candy Ortiz MD Status: REG CLI Study:Chest without Contrast Date of Exam: 11/02/24 Exam# [id number] Ordering Dr: Nettie Thurston METAL PLATER-C PROCEDURE: CHEST WITHOUT CONTRAST 11/02/2024 REASON FOR EXAM: MULTIPLE LUNG NODULES, CURRENT SMOKER TECHNIQUE: Chest CT without contrast. Coronal and Sagittal reconstruction series were provided. One or more dose reduction techniques were used (e.g., Automated exposure control, adjustment of the mA and/or kV according to patient size, use of iterative reconstruction technique RADIATION DOSE SUMMARY: CTDlvol: 18.2 mGy DLP: 628.1 mGycm COMPARISON: CT scan of the chest dated 07/02/2024 FINDINGS: Due to the absence of IV contrast, evaluation of the vasculature, hilar structures, and soft tissues is limited. Lymph nodes: Unremarkable. Heart and Vasculature: Heart size and configuration are within normal limits. Pulmonary vasculature is unremarkable. Coronary Artery Calcifications: None. Lungs and Airways: There is an increase in size of the irregular subpleural nodule or nodular consolidation in the right lung now measuring 5.8 x 1.6 cm. Previously it measured 2.6 x 2.1 cm. Image 79. The irregular nodular opacity in the anterior right lung apex is smaller on today's exam measuring 3 x 3 mm. Previously it measured 7 x 9 mm. Image 26 There is a similar 3 mm nodule in the left upper lobe. Image 26. There is a cystic lesion with a mural nodule in the left lower lobe which appears slightly smaller on today's study measuring 3.0 x 1.8 cm. This nodule previously measured 3.4 x 2.1 cm. Image 68. There is a cystic lesion with a mural nodule more inferior within the left lowerlobe which is slightly smaller on today's study measuring 14 x 6 mm. The nodule previously measured 19 x 10 mm. Image 74. There is a similar 6 x 8 mm nodule in the left lung inferiorly. Image 56. There is a similar subpleural ground-glass appearance in the posterior lateral right lung apex. There is also some stable dependent atelectasis and scarring. Upper Abdomen: The visualized portions of the liver, spleen, adrenal glands, andleft kidney are unremarkable. Bones: Diffuse osteopenia of the bony thorax is noted. Degenerative changes of the lumbar spine are noted. CT/Chest without Contrast IMPRESSION: The pulmonary nodules in both lungs appears slightly smaller when compared to the prior examination with the exception that the subpleural nodule or nodular consolidation in the right lung on image number 79 is slightly larger. The findings may represent neoplasm. PET-CT is recommended if this has not already been performed. Biopsymay also be warranted in order to establish a tissue diagnosis if this has not already been performed. Reading Location: [id number] CC: Dr. Candy Ortiz MD; Nettie Thurston NP ~ [employer]ic Design Engineer: Signed [facility] 11-02-2024 Radiology Diagnostic study note [facility] Imaging Services [address] [place] [id number] Abdomen/Pelvis W IV Cont ONLY MR#: [id number] Acct: [id number] Name: SARINA DIOP Rep #: [id number] : 1970 F 54 From: Lea Rosas MD PCP: Dr. Candy Ortiz MD Status: REG ER Study:Abdomen/Pelvis W IV Cont ONLY Date of E xam: 11/02/24 Exam# [id number] Ordering Dr: Cassandra Espinoza DO PROCEDURE: ABDOMEN/PELVIS W IV CONT ONLY 11/02/2024 REASON FOR EXAM: ABDOMINAL PAIN, CONSTIPATION TECHNIQUE: ABDOMEN/PELVIS W IV CONT ONLY Coronal and Sagittal reconstruction series were provided. CONTRAST: Not indicated One or more dose reduction techniques were used (e.g., Automated exposure control, adjustment of the mA and/or kV according to patient size, use of iterative reconstruction technique. RADIATION DOSE SUMMARY: CTDlvol: 37 mGy DLP: 1244 mGycm FINDINGS: Normal appearance to the liver. Normal portal vein. Normal spleen. Normal adrenal glands. Left renal cyst is present. No renal calculi. No hydronephrosis. No pancreatic mass or inflammation. Gallbladder appears to be surgically absent. No free-fluid in the abdomen or pelvis. There is an IUD within the uterus. There is no obstruction of the large bowel or the small bowel. No colonic wall thickening. Negative for small bowel dilatation. No positive findings of appendicitis or inflammatory changes. Normal bladder contour. Negative for visible adenopathy. Normal lumbar alignment and vertebral body height. CT/Abdomen/Pelvis W IV Cont ONLY IMPRESSION: No acute abnormality. No obstruction or impaction. Reading [facility] CC: Dr. Candy Ortiz MD; Dr. Aundrea Espinoza DO ~ Asic Design Engineer: Signed [facility] 10-23-2024 Radiology Diagnostic study note [facility] Imaging Services [address] [place] [address] Abdomen Single View MR#: [id number] Acct: [id number] Name: SARINA DIOP Rep #: [id number] : 1970 F 54 From: Chelsey Hirsch MD PCP: Dr. Candy Ortiz MD Status: REG CLI Study:Abdomen Single View Date of Exam: 10/23/24 Exam# [id number] Ordering Dr: Syed Estrada METAL PLATER-C EXAM: XR Abdomen, 1 View CLINICAL INDICATION: CONSTIPATION TECHNIQUE: Frontal supine view of the abdomen/pelvis. COMPARISON: No relevant prior studies available. FINDINGS: GASTROINTESTINAL TRACT: Fecal retention in the colon consistent with constipation. No dilation. BONES/JOINTS: Unremarkable. No acute fracture. RAD/Abdomen Single View IMPRESSION: Fecal retention in the colon consistent with constipation. [facility] CC: METAL PLATER-C Teagan Estrada; Dr. Candy Ortiz MD ~ Asic Design Engineer: Signed [facility] 07-23-2024 Evaluation note Diagnosis Onset Date Resolution CKD (chronic kidney disease) chronic July 23, 2024 12:57pm Diabetes chronic July 23 12:57pm Hypertension chronic July 23, 2 025 12:57pm Neuropathy chronic July 23 12:57pm Obesity chronic July 23 12:57pm Hypercalcemia resolved July 23, 2024 12:57pm Moderate chronic obstructive pulmonary disease chronic July 31, 2024 8:19am Multiple lung nodules chronic Jul 8:19am CAMMIE (obstructive sleep apnea) chronic July 31, 2024 8:19am Schizophrenia chronic July 31, 2024 8:19am Smoking greater than 20 pack years chronic July 31, 2024 8:19am Bipolar disorder acute August 132024 12:52pm Pulmonary embolism acute August 13, 2024 12:52pm CKD (chronic kidney disease) chronic August 13, 2024 12:52pm Diabetes chronic August 13 12:52pm Moderate chronic obstructive pulmonary disease chronic August 13, 2024 12:52pm Multiple lung nodules chronic Jul 12:52pm CAMMIE (obstructive sleep apnea) chronic August 13, 2024 12:52pm Schizophrenia chronic August 13, 2024 12:52pm Immunization declined noneactive Jul 12:52pm Smokes cigarettes noneactive July 182024 12:52pm Establishing care with new doctor, encounter for noneactive August 13, 2024 12:52pm Essential hypertension noneactive Ap 2024 12:52pm Pulmonary embolism acute August 10:59am Hypertension chronic August 17 10:59am SOB (shortness of breath) chronic August 17, 2024 10:59am Palpitations inactive August 17 10:59am Bilateral pulmonary embolism acute September 05, 2024 9:07am Pulmonary hypertension acute 2024 9:07am Moderate chronic obstructive pulmonary disease chronic September 05, 2024 9:07am Multiple lung nodules chronic September 05, 2024 9:07am CAMMIE (obstructive sleep apnea) chronic September 05, 2024 9:07am Schizophrenia chronic September 05, 2 025 9:07am Smoking greater than 20 pack years chronic September 05, 2024 9:07am Bilateral ankle pain noneactive September 24, 2024 9:53am Pain in both knees noneactive September 242024 9:53am Fall noneactive September 24, 2024 9:53am [facility] Work Phone: 1(611) 138-118704-07-2025 Evaluation note* Diagnosis Onset Date Resolution Status Admit Date CKD (chronic kidney disease) chronic July 23, 2024 12:57pm Diabetes chronic July 23 12:57pm Hypertension chronic July 23, 2 025 12:57pm Neuropathy chronic July 23 12:57pm Obesity chronic July 23 12:57pm Hypercalcemia resolved July 23, 2024 12:57pm Moderate chronic obstructive pulmonary disease chronic July 31 8:19am Multiple lung nodules chronic Jul 8:19am CAMMIE (obstructive sleep apnea) chroni c July 31, 2024 8:19am Schizophrenia chronic July 31, 2024 8:19am Smoking greater than 20 pack years chronic July 31, 2024 8:19am Bipolar disorder acute August 132024 12:52pm Pulmonary embolism acute August 13, 2024 12:52pm CKD (chronic kidney disease) chronic August 13, 2024 12:52pm Diabetes chronic August 13 12:52pm Moderate chronic obstructive pulmonary disease chronic August 13 12:52pm Multiple lung nodules chronic Jul 12:52pm CAMMIE (obstructive sleep apnea) chroni c August 13, 2024 12:52pm Schizophrenia chronic August 13, 2024 12:52pm Immunization declined noneactive Jul 12:52pm Smokes cigarettes noneactive July 182024 12:52pm Establishing care with new doctor, encounter for noneactive July 12:52pm Essential hypertension noneactive Ap 2024 12:52pm Pulmonary embolism acute August 10:59am Hypertension chronic August 17 10:59am SOB (shortness of breath) chronic August 17, 2024 10:59am Palpitations inactive August 17 10:59am Bilateral pulmonary embolism acute September 05, 2024 9:07am Pulmonary hypertension acute Ma 2024 9:07am Moderate chronic obstructive pulmonary disease chronic September 05, 2024 9:07am Multiple lung nodules chronic September 05, 2024 9:07am CAMMIE (obstructive sleep apnea) chroni c September 05, 2024 9:07am Schizophrenia chronic September 05, 025 9:07am Smoking greater than 20 pack years chronic September 05, 2024 9 :07am Bilateral ankle pain noneactive September 24, 2024 9:53am Pain in both knees noneactive September 242024 9:53am Fall noneactive September 24, 2024 9:53am Bowel incontinence acute October 232024 9:52am Overflow diarrhea acute October 9:52am Constipation chronic October 23 9:52am [facility] Work Phone: 1(948) 133-539304-07-2025 Evaluation note* Diagnosis Onset Date Resolution Status Admit Date CKD (chronic kidney disease) chronic July 23, 2024 12:57pm Diabetes chronic July 23 12:57pm Hypertension chronic July 23, 025 12:57pm Neuropathy chronic July 23 12:57pm Obesity chronic July 23 12:57pm Hypercalcemia resolved July 23, 2024 12:57pm Moderate chronic obstructive pulmonary disease chronic July 31 8:19am Multiple lung nodules chronic Jul 8:19am CAMMIE (obstructive sleep apnea) chroni c July 31, 2024 8:19am Schizophrenia chronic July 31, 2024 8:19am Smoking greater than 20 pack years chronic July 31, 2024 8:19am Bipolar disorder acute August 132024 12:52pm Pulmonary embolism acute August 13, 2024 12:52pm CKD (chronic kidney disease) chronic August 13, 2024 12:52pm Diabetes chronic August 13 12:52pm Moderate chronic obstructive pulmonary disease chronic August 13 12:52pm Multiple lung nodules chronic Jul 12:52pm CAMMIE (obstructive sleep apnea) chroni c August 13, 2024 12:52pm Schizophrenia chronic August 13, 2024 12:52pm Immunization declined noneactive Jul 12:52pm Smokes cigarettes noneactive July 182024 12:52pm Establishing care with new doctor, encounter for noneactive July 12:52pm Essential hypertension noneactive Ap 2024 12:52pm Pulmonary embolism acute August 10:59am Hypertension chronic August 17 10:59am SOB (shortness of breath) chronic August 17, 2024 10:59am Palpitations inactive August 17 10:59am Bilateral pulmonary embolism acute September 05, 2024 9:07am Pulmonary hypertension acute 2024 9:07am Moderate chronic obstructive pulmonary disease chronic September 05, 2024 9:07am Multiple lung nodules chronic September 05, 2024 9:07am CAMMIE (obstructive sleep apnea) chroni c September 05, 2024 9:07am Schizophrenia chronic September 05, 2 025 9:07am Smoking greater than 20 pack years chronic September 05, 2024 9:07am Bilateral ankle pain noneactive September 24, 2024 9:53am Pain in both knees noneactive September 242024 9:53am Fall noneactive September 24, 2024 9:53am Bowel incontinence acute October 232024 9:52am Overflow diarrhea acute October 9:52am Constipation chronic October 23 9:52am CKD (chronic kidney disease) chronic October 24, 2024 12:49pm Diabetes chronic October 24, 2024 12:49pm Hypertension chronic October 24 12:49pm Microalbuminuria due to type 2 diabetes mellitus chronic October 24, 2024 12:49pm Obesity chronic October 24, 2024 12:49pm [facility] Work Phone: 1(247) 416-492804-07-2025 Evaluation note* Diagnosis Onset Date Resolution Status Admit Date CKD (chronic kidney disease) chronic July 23, 2024 12:57pm Diabetes chronic July 23 12:57pm Hypertension chronic July 23, 2 025 12:57pm Neuropathy chronic July 23 12:57pm Obesity chronic July 23 12:57pm Hypercalcemia resolved July 23, 2024 12:57pm Moderate chronic obstructive pulmonary disease chronic July 31 8:19am Multiple lung nodules chronic Jul 8:19am CAMMIE (obstructive sleep apnea) chroni c July 31, 2024 8:19am Schizophrenia chronic July 31, 2024 8:19am Smoking greater than 20 pack years chronic July 31, 2024 8:19am Bipolar disorder acute August 132024 12:52pm Pulmonary embolism acute August 13, 2024 12:52pm CKD (chronic kidney disease) chronic August 13, 2024 12:52pm Diabetes chronic August 13 12:52pm Moderate chronic obstructive pulmonary disease chronic August 13 12:52pm Multiple lung nodules chronic Jul 12:52pm CAMMIE (obstructive sleep apnea) chroni c August 13, 2024 12:52pm Schizophrenia chronic August 13, 2024 12:52pm Immunization declined noneactive Jul 12:52pm Smokes cigarettes noneactive July 182024 12:52pm Establishing care with new doctor, encounter for noneactive July 12:52pm Essential hypertension noneactive Ap 2024 12:52pm Pulmonary embolism acute August 10:59am Hypertension chronic August 17 10:59am SOB (shortness of breath) chronic August 17, 2024 10:59am Palpitations inactive August 17 10:59am Bilateral pulmonary embolism acute September 05, 2024 9:07am Pulmonary hypertension acute 2024 9:07am Moderate chronic obstructive pulmonary disease chronic September 05, 2024 9:07am Multiple lung nodules chronic September 05, 2024 9:07am CAMMIE (obstructive sleep apnea) chroni c September 05, 2024 9:07am Schizophrenia chronic September 05, 025 9:07am Smoking greater than 20 pack years chronic September 05, 2024 9:07am Bilateral ankle pain noneactive September 24, 2024 9:53am Pain in both knees noneactive September 242024 9:53am Fall noneactive September 24, 2024 9:53am Bowel incontinence acute October 232024 9:52am Overflow diarrhea acute October 9:52am Constipation chronic October 23 9:52am CKD (chronic kidney disease) chronic October 24, 2024 12:49pm Diabetes chronic October 24, 2024 12:49pm Hypertension chronic October 24 12:49pm Microalbuminuria due to type 2 diabetes mellitus chronic October 24, 2024 12:49pm Obesity chronic October 24, 2024 12:49pm Bilateral pulmonary embolism acute November 14, 2024 1:57pm Pulmonary hypertension acute 2024 1:57pm Moderate chronic obstructive pulmonary disease chronic November 14 1:57pm Multiple lung nodules chronic Oct 1:57pm CAMMIE (obstructive sleep apnea) chroni c November 14, 2024 1:57pm Schizophrenia chronic November 14, 2024 1:57pm Smoking greater than 20 pack years chronic November 14, 2024 1:57pm [facility] Work Phone: 1(794) 953-645503-17-2025 Radiology Diagnostic study note [facility] Imaging Services [address] [place], [place] [address] Chest without Contrast MR#: [id number] Acct: [id number] Name: SARINA DIOP Rep #: [id number] : 1970 F 53 From: Chelsey Bergeron MD PCP: LOUISE Ramírez Status: REG C LI Study:Chest without Contrast Date of Exam: 07/02/24 Exam# [id number] Ordering Dr: Nettie Thurston METAL PLATER-Juan [place] PROCEDURE: CHEST WITHOUT CONTRAST 07/02/2024 REASON FOR EXAM: MULTIPLE NODULES IN HIGH RISK PATIENT TECHNIQUE: CT chest was performed without IV contrast. Multiplanar reformats were generated. One or more dose reduction techniques were used (e.g., Automated exposure control, adjustment of the mA and/or kV according to patient size, use of iterative reconstruction technique COMPARISON: 03/09/2024. RADIATION DOSE SUMMARY: CTDlvol: 21.71 mGy DLP: 630.5 mGycm FINDINGS: Note that evaluation of the vasculature, rogerio, and soft tissues is limited in the absence of IV contrast. Heart/pericardium: Unremarkable. Aorta: Unremarkable. Pulmonary arteries: Normal in caliber. Lymph nodes: Unremarkable. Lungs/pleura: Slightly decreased size of the irregular subpleural subsolid but nearly solid nodule or nodular consolidation, now 2.6 x 2.1 cm, previously 3.5 x 2.2 cm (series 4, image 86). Grossly similar to slightly improved mild irregular nodular consolidation slightly more anteriorly within the nearby right lower lobe. Irregular nodular opacity in the anterior right lung apex measures 7 x 9 mm, previously 11 x 7 mm (image 26). Similar 4 mm left upper lobe nodule (image29). Similar cystic lesion in the left lower lobe measuring 2.1 x 3.4 cm with mild wall thickening and am mural nodule measuring 1.7 x 0.9 cm (images 68 and 70). Additional similar appearing posterior subpleural cystic lesion with muralnodule more inferiorly is difficult to measure but also essentially unchanged, roughly 1.9 x 1.0 cm (image 76). Similar trace subpleural ground-glass in the posterolateral right lung apex. Dependent atelectasis/scarring. Airways: Unremarkable. Chest wall: Unremarkable. Upper abdomen: Distended stomach.. Musculoskeletal: Demineralization. Multilevel spondylosis. Degenerative changes of the left shoulder. Similar old right lateral and left posterior rib fracture inferiorly. CT/Chest without Contrast IMPRESSION: 1. Slight decrease in the size of a now 2.6 cm subsolid but nearly solid irregular subpleural nodule in the right lower lobe and a now 9 mm nodule in the right lung apex, otherwise essentially unchanged multifocal nodules and atypical cysts with mural nodules, up to 3.4 cm in the left lower lobe. Note that primary lung neoplasm may present as and atypical pulmonary cyst. These remain suspicious for neoplasm and tissue sampling of at least the larger lesions versus PET/CT should be considered. 2. Additional description as above. Reading Location: [id number] CC: LOUISE Rios; Nettie Thurston NP ~ Asic Design Engineer: Signed [facility]02-07-2025 Evaluation note* Diagnosis Onset Date Resolution Status Admit Date Constipation chronic May 10:36am CKD (chronic kidney disease) chronic July 23, 2024 12:57pm Diabetes chronic July 23 12:57pm Hypertension chronic July 23, 2 025 12:57pm Neuropathy chronic July 23 12:57pm Obesity chronic July 23 12:57pm Hypercalcemia resolved July 23, 2024 12:57pm Moderate chronic obstructive pulmonary disease chronic July 31 8:19am Multiple lung nodules chronic Jul 8:19am CAMMIE (obstructive sleep apnea) chroni c July 31, 2024 8:19am Schizophrenia chronic July 31, 2024 8:19am Smoking greater than 20 pack years chronic July 31, 2024 8:19am Bipolar disorder acute August 132024 12:52pm Pulmonary embolism acute August 13, 2024 12:52pm CKD (chronic kidney disease) chronic August 13, 2024 12:52pm Diabetes chronic August 13 12:52pm Moderate chronic obstructive pulmonary disease chronic August 13 12:52pm Multiple lung nodules chronic Jul 12:52pm CAMMIE (obstructive sleep apnea) chroni c August 13, 2024 12:52pm Schizophrenia chronic August 13, 2024 12:52pm Immunization declined noneactive Jul 12:52pm Smokes cigarettes noneactive July 182024 12:52pm Establishing care with new doctor, encounter for noneactive July 12:52pm Essential hypertension noneactive Ap 2024 12:52pm Pulmonary embolism acute August 10:59am Hypertension chronic August 17 10:59am SOB (shortness of breath) chronic August 17, 2024 10:59am Palpitations inactive August 17 10:59am Moderate chronic obstructive pulmonary disease chronic September 05, 2024 9:07am Multiple lung nodules chronic September 05, 2024 9:07am CAMMIE (obstructive sleep apnea) chroni c September 05, 2024 9:07am Schizophrenia chronic September 05, 025 9:07am Smoking greater than 20 pack years chronic September 05, 2024 9 :07am [employer] Work Phone: [phone] History of Present illness Narrative* Julio Gallardo Mammo Tech - 04/09/2024 11:30 AM EST Radiology Service Progress Note PATIENT NAME: Sarina Diop DATE OF SERVICE: April 09, 2024 TIME: 11:41 AM PATIENT IDENTITY VERIFICATION COMPLETED USING TWO (2) IDENTIFIERS: Name and Date of confirmedby patient verbally. FALL SCREENING: Has the patient had 2 falls in the last year or 1 fall with injury or currently using an Ambulatory Assistive Device (Walker, Cane, Wheelchair, Crutches, etc.)? No PATIENT GENDER DATA: Female. status: : No status: NO. PATIENT RELEVANT IMPLANT DATA REVIEWED: Not Applicable PATIENT PRESENTS WITH AN IMPLANTABLE OR ATTACHED CHILD AND YOUTH PROGRAM ASSISTANT: No RADIOLOGY DEPARTMENT: Mammography PERIPHERAL IV DATA: Not applicable SIGNED BY: Abdoulaye Sampson April 09, 2024 11:41 AM documented in [facility]24 NoteHNO ID: [id number] Author: JULIO GALLARDO Mammo Tech Service: ? Author Type: Technologist Type: Progress Notes Filed: 04/09/2024 11:41 Note Text: Radiology Service Progress Note PATIENT NAME: Sarina Diop DATE OF SERVICE: April 09, 2024 TIME: 11:41 AM PATIENT IDENTITY VERIFICATION COMPLETED USING TWO (2) IDENTIFIERS: Name and Date of confirmed by patient verbally. FALL SCREENING: Has the patient had 2 falls in the last year or 1 fall with injury or currently using an Ambulatory Assistive Device (Walker, Cane, Wheelchair, Crutches, etc.)? No PATIENT GENDER DATA: Female. status: : No status: NO. PATIENT RELEVANT IMPLANT DATA REVIEWED: Not Applicable PATIENT PRESENTS WITH AN IMPLANTABLE OR ATTACHED CHILD AND YOUTH PROGRAM ASSISTANT: No RADIOLOGY DEPARTMENT: Mammography PERIPHERAL IV DATA: Not applicable SIGNED BY: Abdoulaye Sampson April 09, 2024 11:41 [facility]11-27-2024 Evaluation note* Diagnosis Onset Date Resolution Status Admit Date Moderate chronic obstructive pulmonary disease chronic March 14, 2024 8:11am Morbid obesity chronic February 172023 8:11am Multiple lung nodules chronic Feb 8:11am CAMMIE (obstructive sleep apnea) chroni c March 14, 2024 8:11am Palpitations chronic February 8:11am Schizophrenia chronic March 142023 8:11am Smoking greater than 20 pack years chronic March 14 8:11am Hypertension chronic March 10:56am Moderate chronic obstructive pulmonary disease chronic April 03, 2024 10:56am Multiple lung nodules chronic Mar 10:56am CAMMIE (obstructive sleep apnea) chroni c April 03, 2024 10:56am Schizophrenia chronic April 032023 10:56am Smoking greater than 20 pack years chronic April 03 024 10:56am Constipation chronic May 10:36am [facility] Work Phone: [phone] 843-181911-04-2024 NoteHNO ID: [id number] Author: SARINA NARVAEZ MD Service: ? Author Type: Physician Type: Progress Notes Filed: 02/20/2024 17:16 Note Text: Pantry Goods Maker offered: Patient declines. Adelina is a 53 year old who presents for an annual gynecologic exam without complaints. Mirena IUD due to come out in November. Wanting a new one to avoid bleeding. Does have some hot flashes. Discussed FSH before removal. If menopausal not IUD needed. Postmenopausal: unknown HRT use: No. Last Pap: 02/09/2022 normal HPV: 04/03/2018 negative History of abnormal pap: No Last mammogram: 2011 normal History of abnormal mammogram: No Sexually active: Yes OB History T0 L0 SAB0 IAB0 Ectopic0 Multiple0 Live Births0 Binder Folder Operator History LMP: 11/02/2011, IUD Age at Menarche: Age at First : Age at Menopause: Binder Folder Operator History Comments: Sexual Activity: Yes; Male Contraception: I.U.D. PAST MEDICAL HISTORY Diagnosis Date Acute hepatitis C without mention of hepatic coma(070.51) Allergic rhinitis, cause unspecified COPD (chronic obstructive pulmonary disease) (HCC) Diabetes mellitus (HCC) Esophageal reflux 03/29/2006 FIBROMYALGIA 03/12/2008 Herpes simplex without mention of complication cold sores Herpes simplex without mention of complication cold sores Reflux esophagitis controlled with nexium Schizoaffective disorder, chronic condition (HCC) Dr. Bain Tobacco use disorder 03/29/2006 PAST SURGICAL HISTORY Procedure Laterality Date ADENOIDECTOMY PRIMARY CHOLECYSTECTOMY 03/25/2004 Cholecystectomy laparoscopic PAST SURGICAL HISTORY OF lumbar pain injections FAMILY HISTORY Adopted: Yes SOCIAL HISTORY Social History Tobacco Use Smoking status: Every Day Current packs/day: 1.00 Average packs/day: 1 pack/day for 20.0 years (20.0 ttl pk-yrs) Types: Cigarettes Smokeless tobacco: Never Vaping Use Vaping status: Never Used Substance Use Topics Alcohol use: No Comment: Heavy drinker- quit in 2003 . Drank mixed drinks daily up to 7 per day. Drug use: No Comment: Hx of marijuana- quit in 2002. REVIEW OF SYSTEMS Abdomen: No abdominal pain, nausea, vomiting, diarrhea, or constipation. No bloating, early satiety, indigestion, or increased flatulence. Bladder: No dysuria, gross hematuria, urinary frequency, urinary urgency, or incontinence Breast: No breast lumps, nipple d/c, overlying skin changes, redness or skin retraction Allergies and current medication updated:Yes SENSITIVE EXAM: The sensitive examination was discussed with the Patient or Patient's Authorized Banking Services Clerk. As applicable, any other physician, advance practice provider, medical student, or other health professional student that will be observing or involved in the sensitive examination for educational or training purposes was discussed with the Patient or Authorized Banking Services Clerk. The Patient or Authorized Banking Services Clerk has agreed to proceed with the sensitive examination. (Sensitive examination includes inspection and/or palpation of the breasts, pelvis, prostate and anorectal regions). EXAM: BP 160/100 Ht 5' 2 (1.58m) Wt 265 lb (120.2kg) LMP 11/02/2011 BMI 48.46 kg/(m2). GENERAL: pleasant, female in no apparent distress HEENT: Normocephalic, atraumatic, mucus membranes moist, and no lesions NECK: Supple, full range of motion, no adenopathy, and thyroid normal DERMATOLOGY: Normal, without lesions, non-icteric, and non-hirsute BREAST: soft, non-tender, symmetric, no dominant mass, normal nipple-areolar complex, no lymphadenopathy, and no nipple discharge CHEST: Normal inspiratory effort ABDOMEN: soft, non-tender, and no masses PELVIC: external genitalia normal, normal Bartholin's glands, urethra, [place]'s glands, no vulvar lesions, no cervical lesions, good vaginal support, physiologic discharge present, normal appearing perineal body and perianal region, IUD strings visible BIMANUAL: uterus normal size, shape and consistency, no adnexal masses, and non-tender RECTOVAGINAL: rectovaginal exam negative for any masses or nodularity. NEURO: alert and oriented x3,exam grossly non-focal EXTREMITIES: normal ASSESSMENT/PLAN: 1) Health maintenance: Pap done with HPV. 2) Follow up one year or sooner as needed Sarina Narvaez [facility]11-04-2024 History of Present illness Narrative* Sarina Narvaez MD - 02/20/2024 1:16 PM EST Pantry Goods Maker offered: Patient declines. Adelina is a 53 year old who presents for an annual gynecologic exam without complaints. Mirena IUD due to come out in November. Wanting a new one to avoid bleeding. Does have some hot flashes. Discussed FSH before removal. If menopausal not IUD needed. Postmenopausal: unknown HRT use: No. Last Pap: 02/09/2022 normal HPV: 04/03/2018 negative History of abnormal pap: No Last mammogram: 2011 normal History of abnormal mammogram: No Sexually active: Yes OB History T0 L0 SAB0 IAB0 Ectopic0 Multiple0 Live Births0 Binder Folder Operator History LMP: 11/02/2011, IUD Age at Menarche: Age at First : Age at Menopause: Binder Folder Operator History Comments: Sexual Activity: Yes; Male Contraception: I.U.D. PAST MEDICAL HISTORY Diagnosis Date Acute hepatitis C without mention of hepatic coma(0.51) Allergic rhinitis, cause unspecified COPD (chronic obstructive pulmonary disease) (HCC) Diabetes mellitus (HCC) Esophageal reflux 03/29/2006 FIBROMYALGIA 03/12/2008 Herpes simplex without mention of complication cold sores Herpes simplex without mention of complication cold sores Reflux esophagitis controlled with nexium Schizoaffective disorder, chronic condition (HCC) Dr. Bain Tobacco use disorder 03/29/2006 PAST SURGICAL HISTORY Procedure Laterality Date ADENOIDECTOMY PRIMARY <AGE 12 age 7 CHOLECYSTECTOMY 03/25/2004 Cholecystectomy laparoscopic PAST SURGICAL HISTORY OF lumbar pain injections FAMILY HISTORY Adopted: Yes SOCIAL HISTORY Social History Tobacco Use Smoking status: Every Day Current packs/day: 1.00 Average packs/day: 1 pack/day for 20.0 years (20.0 ttl pk-yrs) Types: Cigarettes Smokeless tobacco: Never Vaping Use Vaping status: Never Used Substance Use Topics Alcohol use: No Comment: Heavy drinker- quit in 2003 . Drank mixed drinks daily up to 7 per day. Drug use: No Comment: Hx of marijuana- quit in 2002. REVIEW OF SYSTEMS Abdomen: No abdominal pain, nausea, vomiting, diarrhea, or constipation. No bloating, early satiety, indigestion, or increased flatulence. Bladder: No dysuria, gross hematuria, urinary frequency, urinary urgency, or incontinence Breast: No breast lumps, nipple d/c, overlying skin changes, redness or skin retraction Allergies and current medication updated:Yes SENSITIVE EXAM: The sensitive examination was discussed with the Patient or Patient's Authorized Banking Services Clerk. As applicable, any other physician, advance practice provider, medical student, or other health professional student that will be observing or involved in the sensitive examination for educational or training purposes was discussed with the Patient or Authorized Banking Services Clerk. The Patient or Authorized Banking Services Clerk has agreed to proceed with the sensitive examination. (Sensitive examination includes inspection and/or palpation of the breasts, pelvis, prostate and anorectal regions). EXAM: BP 160/100 Ht 5' 2 (1.58m) Wt 265 lb (120.2kg) LMP 11/02/2011 BMI 48.46 kg/(m^2). GENERAL: pleasant, female in no apparent distress HEENT: Normocephalic, atraumatic, mucus membranes moist, and no lesions NECK: Supple, full range of motion, no adenopathy, and thyroid normal DERMATOLOGY: Normal, without lesions, non-icteric, and non-hirsute BREAST: soft, non-tender, symmetric, no dominant mass, normal nipple-areolar complex, no lymphadenopathy, and no nipple discharge CHEST: Normal inspiratory effort ABDOMEN: soft, non-tender, and no masses PELVIC: external genitalia normal, normal Bartholin's glands, urethra, [place]'s glands, no vulvar lesions, no cervical lesions, good vaginal support, physiologic discharge present, normal appearing perineal body and perianal region, IUD strings visible BIMANUAL: uterus normal size, shape and consistency, no adnexal masses, and non-tender RECTOVAGINAL: rectovaginal exam negative for any masses or nodularity. NEURO: alert and oriented x3,exam grossly non-focal EXTREMITIES: normal ASSESSMENT/PLAN: 1) Health maintenance: Pap done with HPV. 2) Follow up one year or sooner as needed Sarina Narvaez MD documented in this encounterC[facility]04-16-2024 Progress note Author Chino Ford [facility] August 02, 2023 1:19pm Note Date/Time August 02, 2023 8:0 7am [facility] Medical Records Department [address] [place] [address] Progress Note - Hospitalist 08/02/23 0804 MR#: [id number] Acct: [id number] Name: SARINA DIOP Rep #:[id number] : 1970 52 From: Chino Ford DO PCP: LOUISE Solorio Status:ADM IN Location: [place] [id number]- [id number] Reason for Visit Reason for Visit: Diagnoses Unspecified Escherichia coli [E. coli] as the cause of diseases classified elsewhere (07/29/23) Elevated white blood cell count, unspecified (07/29/23) Acidosis, unspecified (07/29/23) Pneumonia, unspecified organism (07/29/23) Urinary tract infection, site not specified (07/29/23) Dyspnea, unspecified (07/29/23) Other specified abnormal findings of blood chemistry (07/29/23) Unspecified abnormal findings in urine (07/29/23) Abnormal findings on diagnostic imaging of other specified body structures (07/29/23) Subjective Subjective Breathing better. No events overnight. Objective Data Objective Data Vital Signs: Vital Signs Temp Pulse Resp BP Pulse Ox O2 Del Method O2 Flow Rate 36.2 C L 83 18 156/99 H 95 Room Air 2 08/02/23 04:16 08/02/23 04:16 08/02/23 04:16 08/02/23 04:16 08/02/23 04:16 08/02/23 04:16 08/01/23 22:00 Oxygen Flow Rate (L/min) 2 Oxygen Delivery Method Room Air Weight: 156.4 kg Body Mass Index (BMI) 63.0 Intake & Output: Intake and Output for Last 24 Hours 07/31/23 08/01/23 08/02/23 23:59 23:59 23:59 Intake Total 2245 / 2245 1025 / 1025 400 / 400 Output Total 2800 / 2800 700 / 700 Balance 2245 / 2245 -1775 / -1775 -300 / -300 Lab / Micro Data 08/01/23 05:11 08/01/23 05:11 Labs: Laboratory Results - last 24 hr 08/01/23 11:29: POC Glucose 340 H 08/01/23 16:18: POC Glucose 382 H 08/02/23 06:33: POC Glucose 275 H Micro: Microbiology 07/29/23 16:30 Blood Culture (Wb) - Anticubital Right Blood Culture - Preliminary No growth in 48 hours. 07/29/23 17:51 Urine, Clean Catch Urine Culture - Final Presumptive E. coli 07/30/23 19:50 Mucosa - Nasopharyngeal Respiratory Panel (PCR) - Final 07/30/23 14:58 Urine, Clean Catch Legionella Antigen - Final 07/30/23 14:58 Urine, Clean Catch Streptococcus pneumoniae Antigen (M - Final 07/29/23 16:30 Mucosa - Nose SARS-CoV-2, Influenza & RSV (PCR) - Final Radiography Diagnostic Testing: Radiology Impression Echocardiogram 07/31/23 08:06 Interpretation Summary Normal LV size. The estimated ejection fraction is 65 %. No regional wall motion abnormalities noted. Mild to moderate global right ventricular systolic dysfunction. Mobile mass of the right atrium. Pulmonary artery systolic pressure is 60 mmHg. Moderate pulmonary hypertension. Mass in right atrium measuring 2.8 x 1.9 cm most consistent with a right atrial thrombus Stage 1 diastolic dysfunction. Contrast injection was performed. Ordering Physician: Annabelle Ayoub Referring Physician: Afia Driscoll Performed By: Grace Martinez RDCS Physical Exam Const alert and no apparent distress Resp normal respiratory effort and no retractions Cardio regular rate, regular rhythm, S1 normal heart sound and S2 normal heart sound GI normal to inspection, nondistended, normoactive bowel sounds, soft to palpation,non-tender and non-distended Extremity Extremity Narrative: minimal LE edema. Assessment & Plan Assessment/Plan (1) Acidosis, lactic: (2) Abnormal chest x-ray: (3) Abnormal finding on urinalysis: (4) Leukocytosis: (5) Dyspnea: (6) Elevated serum creatinine: (7) E. coli urinary tract infection: PLAN: Plan E. coli UTI * -Culture positive for E. coli with pansensitive organism- * Discharge with nitrofurantoin. Abnormal chest x-ray/shortness of breath/acute exacerbation of COPD * -Patient remains on her baseline oxygen at 2 L-Continue to monitor and titrate up if need be * -Chest x-ray reports infiltrates versus atelectasis * -Continue Solu-Medrol for now with history of COPD--> decreased to daily Solu- Medrol. Change to prednisone. * -Strep pneumo and Legionella are negative * -Patient not able to produce a sputum for culture * -Discontinue azithromycin and continue ceftriaxone * -Continue Mucinex 1200 twice daily * -Continue incentive spirometry-Continue Acapella * -Continue aggressive pulmonary toilet with scheduled and as needed nebulizers * -COVID/flu/RSV negative. Respiratory viral panel was unremarkable * -Needs follow-up with pulmonary medicine as an outpatient for PFTs and a 6- minute walk test * -Highly recommend tobacco cessation Acute HFpEF * -Echo shows an EF 65% with PASP of 60 mmHg. * -Discharge with furosmide. * -Fluid and sodium restrict diet * -Check daily weights RV thrombus * already anticoagulated. * DW Dr. Xie 07/31, no plan for BHARGAV. * Follow up with cardiology for follow up 2d echo Pulmonary artery hypertension * unclear type, certainly many variables: PE, untreated CAMMIE, versus other. * follow up with pulmonary for recommendations for CAMMIE as she has been unable to tolerate CPAP. (inspire device?) Chronic conditions * Chronic hypoxic respiratory failure secondary to COPD/history of multiple PE- At baseline wears 2 L-Been currently on baseline oxygen-Encouraged outpatient pulmonary medicine with follow-up * History of recurrent pulmonary emboli-Continue home Eliquis * Diabetes-Patient is on Mounjaro as an outpatient-Blood sugars are markedly elevated likely related to steroid use-Add Lantus 15 units daily-Add SSI mhpx-lccr-Fmdq wean steroids some and this should help control her upywzq-Mhzn-Sqrnl as ordered-Had recent hemoglobin A1c on 05/28/2023 at which time it was 7.0 * GERD-Continue home omeprazole * Diabetic neuropathy-Continue home gabapentin * Schizophrenia/depression-Patient gets monthly injectable aripiprazole with last dose being 07/28/2023-Continue home Wellbutrin * Morbid obesity-BMI is 49.6-Recommend weight loss-Complicates treatment, prognosis, outcomes * History of tobacco abuse-Still smoking-Patient denies need of nicotine patch DVT prophylaxis -Continue home Eliquis CODE STATUS -DNR CCA with no intubation DC home. 08/02/23 1319 <Electronically signed by Chino Ford DO> Cosigner Signature (if applicable): CC: ~ Signed [facility] Work Phone: 1(333) 171-221804-15-2024 Progress note Author Chino Ford [facility] August 01, 2023 2:35pm Note Date/Time August 01, 2023 9:5 2am [facility] Medical Records Department [address] [place] [address] Progress Note - Hospitalist 08/01/23 0949 MR#: [id number] Acct: [id number] Name: SARINA DIOP Rep #:[id number] : 1970 52 From: Chino Ford DO PCP: LOUISE Solorio Status:ADM IN Location: [place] [id number]- [id number] Reason for Visit Reason for Visit: Diagnoses Unspecified Escherichia coli [E. coli] as the cause of diseases classified elsewhere (07/29/23) Elevated white blood cell count, unspecified (07/29/23) Acidosis, unspecified (07/29/23) Pneumonia, unspecified organism (07/29/23) Urinary tract infection, site not specified (07/29/23) Dyspnea, unspecified (07/29/23) Other specified abnormal findings of blood chemistry (07/29/23) Unspecified abnormal findings in urine (07/29/23) Abnormal findings on diagnostic imaging of other specified body structures (07/29/23) Subjective Subjective Anxious about the BHARGAV. Breathing well at rest, short of breath with activity. Objective Data Objective Data Vital Signs: Vital Signs Temp Pulse Resp BP Pulse Ox O2 Del Method O2 Flow Rate 36.4 C L 80 18 124/78 H 96 Room Air 2 08/01/23 09:35 08/01/23 09:35 08/01/23 09:35 08/01/23 09:35 08/01/23 09:35 08/01/23 09:35 07/31/23 03:00 Oxygen Flow Rate (L/min) 2 Oxygen Delivery Method Room Air Weight: 156.2 kg Body Mass Index (BMI) 62.9 Intake & Output: Intake and Output for Last 24 Hours 07/30/23 07/31/23 08/01/23 23:59 23:59 23:59 Intake Total 2228.33 / 2708.33 2245 / 2245 240 / 240 Balance 2228.33 / 2708.33 2245 / 2245 240 / 240 Lab / Micro Data 08/01/23 05:11 08/01/23 05:11 Labs: Laboratory Results - last 24 hr 07/31/23 10:15: Sodium 130 L, Potassium 4.9, Chloride 94 L, Carbon Dioxide 23.0,Anion Gap 13, BUN 30 H, Creatinine 1.45 H, Estim Creat Clear Calc 56.76, Est GFR(MDRD) Af Amer 49 L, Est GFR (MDRD) Non-Af 40 L, BUN/Creatinine Ratio 20.7 H, Glucose 588 H*, Calcium 9.0 07/31/23 11:58: POC Glucose > 500 H* 07/31/23 13:05: POC Glucose 495 H* 07/31/23 14:45: POC Glucose 475 H* 07/31/23 16:07: POC Glucose 442 H 07/31/23 21:19: POC Glucose 255 H 08/01/23 05:11: WBC 16.6 H, RBC 4.90, Hgb 13.6, Hct 42.8, MCV 87.3, MCH 27.8, MCHC 31.8 L, RDW Std Deviation 51.9 H, RDW Coeff of Serafin 16.6 H, Plt Count 393, MPV 9.7, Immature Gran % (Auto) 1.300 H, Neut % (Auto) 79.8 H, Lymph % (Auto) 11.6 L, Barron % (Auto) 7.0, Eos % (Auto) 0.1, Baso % (Auto) 0.2, Absolute Neuts (auto) 13.3 H, Absolute Lymphs (auto) 1.92, Nucleated RBC % 0, Sodium 132 L, Potassium 4.8, Chloride 99, Carbon Dioxide 27.0, Anion Gap 6, BUN 32 H, Creatinine 1.25 H, Estim Creat Clear Calc 76.91, Est GFR (MDRD) Af Amer 58 L, Est GFR (MDRD) Non-Af 48 L, BUN/Creatinine Ratio 25.6 H, Glucose 329 H, Calcium 9.3, Magnesium 1.8 08/01/23 06:44: POC Glucose 281 H Micro: Microbiology 07/29/23 16:30 Blood Culture (Wb) - Anticubital Right Blood Culture - Preliminary No growth in 48 hours. 07/29/23 17:51 Urine, Clean Catch Urine Culture - Final Presumptive E. coli 07/30/23 19:50 Mucosa - Nasopharyngeal Respiratory Panel (PCR) - Final 07/30/23 14:58 Urine, Clean Catch Legionella Antigen - Final 07/30/23 14:58 Urine, Clean Catch Streptococcus pneumoniae Antigen (M - Final 07/29/23 16:30 Mucosa - Nose SARS-CoV-2, Influenza & RSV (PCR) - Final Physical Exam Const alert and no apparent distress HEENT head/scalp atraumatic and moist oral mucous membranes Resp normal respiratory effort, no retractions, no use of accessory muscles and clearto auscultation bilaterally Cardio regular rate, regular rhythm, S1 normal heart sound and S2 normal heart sound GI normal to inspection, nondistended, normoactive bowel sounds, soft to palpation,non-tender and non-distended Assessment & Plan Assessment/Plan (1) Acidosis, lactic: (2) Abnormal chest x-ray: (3) Abnormal finding on urinalysis: (4) Leukocytosis: (5) Dyspnea: (6) Elevated serum creatinine: (7) E. coli urinary tract infection: PLAN: Plan E. coli UTI * -Culture positive for E. coli with pansensitive organism-Continue ceftriaxone day 2 of 7 for antibiotics Abnormal chest x-ray/shortness of breath/acute exacerbation of COPD * -Patient remains on her baseline oxygen at 2 L-Continue to monitor and titrate up if need be * -Chest x-ray reports infiltrates versus atelectasis * -Continue Solu-Medrol for now with history of COPD--> decreased to daily Solu- Medrol * -Strep pneumo and Legionella are negative * -Patient not able to produce a sputum for culture * -Discontinue azithromycin and continue ceftriaxone * -Continue Mucinex 1200 twice daily * -Continue incentive spirometry-Continue Acapella * -Continue aggressive pulmonary toilet with scheduled and as needed nebulizers * -COVID/flu/RSV negative * -Respiratory viral panel was unremarkable * -Needs follow-up with pulmonary medicine as an outpatient for PFTs and a 6- minute walk test * -Highly recommend tobacco cessation Lower extremity edema/elevated BNP * -Check echocardiogram--> pending for tomorrow * -Continue Lasix 40 mg IV twice daily * -Fluid and sodium restrict diet * -Check daily weights Leukocytosis -Mild initially however now on Solu-Medrol so will be elevated due to demargination of neutrophils -Will need to monitor clinically for improvement as white count will likely be elevated to the above Elevated serum creatinine -Baseline appears to run between 1 and 1.25 -Was 1.4 yesterday and down to 1.2 this morning -Avoid nephrotoxins and continue to monitor -Repeat lab in a.m. Hyperkalemia -Etiology is unclear -Patient is on no potassium supplementation -Does not appear to be acidotic -Repeat lab shows normalized potassium at 4.9 -Repeat lab in a.m. Elevated blood pressure -Blood pressures for the most part have been in goal range -Goal would be 130/80 with her history of diabetes -Will start low-dose losartan while hospitalized as this would be a nice conjunct give medication for her diabetes as well and provide renal protection RV thrombus * already anticoagulated. * BHARGAV for 08/01 Pulmonary artery hypertension * unclear type, certainly many variables: PE, untreated CAMMIE, versus other. * follow up with pulmonary for recommendations for CAMMIE as she has been unable to tolerate CPAP. (inspire device?) * consider VQ scan Chronic conditions * Chronic hypoxic respiratory failure secondary to COPD/history of multiple PE- At baseline wears 2 L-Been currently on baseline oxygen-Encouraged outpatient pulmonary medicine with follow-up * History of recurrent pulmonary emboli-Continue home Eliquis * Diabetes-Patient is on Mounjaro as an outpatient-Blood sugars are markedly elevated likely related to steroid use-Add Lantus 15 units daily-Add SSI jaup-azzd-Bnrw wean steroids some and this should help control her church oitq-Vggk-Wevum as ordered-Had recent hemoglobin A1c on 05/28/2023 at which time it was 7.0 * GERD-Continue home omeprazole * Diabetic neuropathy-Continue home gabapentin * Schizophrenia/depression-Patient gets monthly injectable aripiprazole with last dose being 07/28/2023-Continue home Wellbutrin * Morbid obesity-BMI is 49.6-Recommend weight loss-Complicates treatment, prognosis, outcomes * History of tobacco abuse-Still smoking-Patient denies need of nicotine patch DVT prophylaxis -Continue home Eliquis CODE STATUS -DNR CCA with no intubation Charges/Coding Visit Charges Inpatient E&M: 81980 Subs Hosp L2 08/01/23 1435 <Electronically signed by Chino Ford DO> Cosigner Signature (if applicable): CC: ~ Signed [facility] Work Phone: [phone] Progress note Author Annabelle Ayoub [facility] July 31, 2023 1:00pm Note Date/Time July 31, 2023 11: 35am [facility] Medical Records Department [address] [place] [address] Progress Note - Hospitalist 07/31/23 1135 MR#: [id number] Acct: [id number] Name: SARINA DIOP Rep #:[id number] : 1970 52 From: Annabelle Ayoub DO PCP: LOUISE Solorio Status:ADM IN Location: [place] [id number]- Reason for Visit Reason for Visit: Syncope/shortness of breath Subjective Subjective Patient states he is feeling a little bit better. Breathing is about the same. She did state it that she peed quite a bit with the diuretic. We did discuss that she could potentially have what I suspect to be right-sided heart failure from untreated sleep apnea as well as COPD and possibly thromboembolic disease however echocardiogram will be done tomorrow and will give us more information. She voiced understanding. I did tell her she has what appears to be urinary tract infection is maintained on antibiotics. It is unclear at this time whether or not she actually has a pneumonia or not however she will remain on current antibiotics. Objective Data Objective Data Vital Signs: Vital Signs Temp Pulse Resp BP Pulse Ox O2 Del Method O2 Flow Rate 97.4 F L 82 16 149/103 H 94 Room Air 2 07/31/23 09:00 07/31/23 10:46 07/31/23 10:46 07/31/23 09:00 07/31/23 09:00 07/31/23 09:00 07/31/23 03:00 Oxygen Flow Rate (L/min) 2 Oxygen Delivery Method Room Air Weight: 122.9 kg Body Mass Index (BMI) 49.5 Intake & Output: Intake and Output for Last 24 Hours 07/29/23 07/30/23 07/31/23 23:59 23:59 23:59 Intake Total 670 / 670 2228.33 / 2708.33 1025 / 1025 Balance 670 / 670 2228.33 / 2708.33 1025 / 1025 Lab / Micro Data 07/31/23 06:16 07/31/23 10:15 Labs: Laboratory Results - last 24 hr 07/31/23 06:16: WBC 15.8 H, RBC 4.66, Hgb 12.9, Hct 40.5, MCV 86.9, MCH 27.7, MCHC 31.9 L, RDW Std Deviation 52.2 H, RDW Coeff of Serafin 16.6 H, Plt Count 345, MPV 9.8, Immature Gran % (Auto) 1.400 H, Neut % (Auto) 89.2 H, Lymph % (Auto) 5.3 L, Barron % (Auto) 4.0, Eos % (Auto) 0.0, Baso % (Auto) 0.1, Absolute Neuts (auto) 14.1 H, Absolute Lymphs (auto) 0.83, Nucleated RBC % 0, Sodium 131 L, Potassium 5.2 H, Chloride 100, Carbon Dioxide 25.0, Anion Gap 6, BUN 30 H, Creatinine 1.12 H, Estim Creat Clear Calc 73.48, Est GFR (MDRD) Af Amer 66, Est GFR (MDRD) Non-Af 54 L, BUN/Creatinine Ratio 26.8 H, Glucose 420 H, Calcium 9.2,Phosphorus 4.0, Magnesium 1.8, Total Bilirubin 0.60, AST 21, ALT 70 H, Alkaline Phosphatase 272 H, Total Protein 6.7, Albumin 2.2 L, Globulin 4.5 H, Albumin/Globulin Ratio 0.5 L, TSH 1.20 07/31/23 08:53: POC Glucose 435 H 07/31/23 10:15: Sodium 130 L, Potassium 4.9, Chloride 94 L, Carbon Dioxide 23.0,Anion Gap 13, BUN 30 H, Creatinine 1.45 H, Estim Creat Clear Calc 56.76, Est GFR(MDRD) Af Amer 49 L, Est GFR (MDRD) Non-Af 40 L, BUN/Creatinine Ratio 20.7 H, Glucose 588 H*, Calcium 9.0 Micro: Microbiology 07/29/23 17:51 Urine, Clean Catch Urine Culture - Final Presumptive E. coli 07/30/23 19:50 Mucosa - Nasopharyngeal Respiratory Panel (PCR) - Final 07/30/23 14:58 Urine, Clean Catch Legionella Antigen - Final 07/30/23 14:58 Urine, Clean Catch Streptococcus pneumoniae Antigen (M - Final 07/29/23 16:30 Mucosa - Nose SARS-CoV-2, Influenza & RSV (PCR) - Final Physical Exam Const alert, oriented x3, no apparent distress and well nourished; Negative for average body habitus or healthy appearing Constitutional Narrative: Morbidly obese white female, middle-aged, lying in bed with headphones on listening to something, sits up on the edge of the bed easily when I walk in theroom for me to perform an exam,, does not appear uncomfortable or toxic, affect is less flat than yesterday HEENT head/scalp atraumatic and moist oral mucous membranes HEENT Narrative: Mallampati is 3, no thrush Head and Scalp: normocephalic Resp normal respiratory effort, no retractions, no use of accessory muscles and clearto auscultation bilaterally Resp Narrative: Diminished diffusely-mild Auscultation: Negative for crackles, rhonchi or wheezes Cardio regular rate, regular rhythm, S1 normal heart sound, S2 normal heart sound, no murmurs, no rub and no gallops GI normal to inspection, nondistended, normoactive bowel sounds, soft to palpation and non-tender GI Narrative: Large protuberant abdomen Extremity Extremity Narrative: Pedal pulses are 2+, trace to 1+ bilateral lower extremity edema Neuro oriented x3, moves all extremities and no focal motor deficits Speech: speech normal Psych Psych Narrative: Affect is flat, eye contact is fair, mood seems depressed Assessment & Plan Assessment/Plan (1) Acidosis, lactic: (2) Abnormal chest x-ray: (3) Abnormal finding on urinalysis: (4) Leukocytosis: (5) Dyspnea: (6) Elevated serum creatinine: (7) E. coli urinary tract infection: PLAN: Plan E. coli UTI -Culture positive for E. coli with pansensitive organism -Continue ceftriaxone day 2 of 7 for antibiotics Abnormal chest x-ray/shortness of breath/acute exacerbation of COPD -Patient remains on her baseline oxygen at 2 L -Continue to monitor and titrate up if need be -Chest x-ray reports infiltrates versus atelectasis -Continue Solu-Medrol for now with history of COPD--> decreased to daily Solu- Medrol -Strep pneumo and Legionella are negative -Patient not able to produce a sputum for culture -Discontinue azithromycin and continue ceftriaxone -Continue Mucinex 1200 twice daily -Continue incentive spirometry -Continue Acapella -Continue aggressive pulmonary toilet with scheduled and as needed nebulizers -COVID/flu/RSV negative -Respiratory viral panel was unremarkable -Needs follow-up with pulmonary medicine as an outpatient for PFTs and a 6- minute walk test -Highly recommend tobacco cessation Lower extremity edema/elevated BNP -Check echocardiogram--> pending for tomorrow -Continue Lasix 40 mg IV twice daily -Fluid and sodium restrict diet -Check daily weights Leukocytosis -Mild initially however now on Solu-Medrol so will be elevated due to demargination of neutrophils -Will need to monitor clinically for improvement as white count will likely be elevated to the above Elevated serum creatinine -Baseline appears to run between 1 and 1.25 -Was 1.4 yesterday and down to 1.2 this morning -Avoid nephrotoxins and continue to monitor -Repeat lab in a.m. Hyperkalemia -Etiology is unclear -Patient is on no potassium supplementation -Does not appear to be acidotic -Repeat lab shows normalized potassium at 4.9 -Repeat lab in a.m. Elevated blood pressure -Blood pressures for the most part have been in goal range -Goal would be 130/80 with her history of diabetes -Will start low-dose losartan while hospitalized as this would be a nice conjunct give medication for her diabetes as well and provide renal protection Chronic hypoxic respiratory failure secondary to COPD/history of multiple PE -At baseline wears 2 L -Been currently on baseline oxygen -Encouraged outpatient pulmonary medicine with follow-up it appears the patient missed her last 3-month follow-up with Dr. Shea History of recurrent pulmonary emboli -Continue home Eliquis Diabetes -Patient is on Mounjaro as an outpatient -Blood sugars are markedly elevated likely related to steroid use -Add Lantus 15 units daily -Add SSI high-dose -Will wean steroids some and this should help control her sugars -Accu-Cheks as ordered -Had recent hemoglobin A1c on 05/28/2023 at which time it was 7.0 GERD -Continue home omeprazole Diabetic neuropathy -Continue home gabapentin Schizophrenia/depression -Patient gets monthly injectable aripiprazole with last dose being 07/28/2023 -Continue home Wellbutrin Morbid obesity -BMI is 49.6 -Recommend weight loss -Complicates treatment, prognosis, outcomes History of tobacco abuse -Still smoking -Patient denies need of nicotine patch DVT prophylaxis -Continue home Eliquis CODE STATUS -DNR CCA with no intubation Charges/Coding Visit Charges Inpatient E&M: 02572 Subs Hosp L2 07/31/23 1300 <Electronically signed by Annabelle Ayoub DO> Cosigner Signature (if applicable): CC: ~ Signed [facility] Work Phone: [phone] 289-252104-13-2024 Progress note Author Annabelle Ayoub [facility] July 30, 2023 12:07pm Note Date/Time July 30, 2023 7:3 0am [facility] Medical Records Department [address] [place] [address] Progress Note - Hospitalist 07/30/23 0728 MR#: [id number] Acct: [id number] Name: SARINA DIOP Rep #:[id number] : 1970 52 From: Annabelle Ayoub DO PCP: LOUISE Solorio Status:ADM IN Location: [place] [address]- 1 Reason for Visit Reason for Visit: Syncope/shortness of breath Subjective Subjective Patient is a 52-year-old white female who presented to emergency department [facility] on 07/29/2023 with a syncopal episode as well as some shortness of breath and dysuria. Patient reported that she had been feeling feverish and chilled for the last 2 days. She does have a history of COPD with chronic hypoxia and history of pulmonary embolus and is on oxygen 2 L at baseline. She reported that she was sitting on the toilet going to the bathroomand then awoke still on the toilet but her head was resting on the vanity. She denied any injuries and this seems very consistent with a vasovagal event or micturition syncope. Vital signs on presentation showed a temperature of 99.5, respiratory was 33, blood pressure was 185/115 with a repeat of 164/115, heart rate was 94 and oxygen saturations were 98% on her baseline 2 L. CBC showed a leukocytosis with a white count of 12.7 and a left shift with a 78.9% neutrophilia. Chemistry panel showed mild hyponatremia with a sodium of 132 butother electrolytes were normal. Creatinine was slightly elevated however seems to be fairly consistent with her baseline at 1.11. Her initial lactic acid was 2.1 with repeat at 1.1. BNP was elevated at 266.8 and troponin was normal at 31. Her UA was suggestive of infection and was positive for nitrites, occult blood, leuk esterase, white cells, and was 4+ bacteria. Toxicology screen was unremarkable. Chest x- ray showed heterogeneous opacities involving lung bases that was suggestive of atelectasis versus infiltrate. She was started on Rocephin and azithromycin for possible pneumonia and cultures were ordered and pending. Ceftriaxone should also cover her urine. Patient states she feels about the same as she did previously. She is frustrated because she has not been feeling well for some time. She still smoking but cutting back. Waiting for cultures to come back. She is on no baseline for therapy for her lung disease and I do suspect she has COPD. I do not see that she is ever had any PFTs done. Objective Data Objective Data Vital Signs: Vital Signs Temp Pulse Resp BP Pulse Ox O2 Del Method O2 Flow Rate 96.7 F L 72 18 135/90 H 95 Nasal Cannula 2 07/30/23 01:40 07/30/23 01:40 07/30/23 01:40 07/30/23 01:40 07/30/23 01:40 07/30/23 07:25 07/30/23 07:25 Oxygen Flow Rate (L/min) 2 Oxygen Delivery Method Nasal Cannula Weight: 122.9 kg Body Mass Index (BMI) 49.5 Intake & Output: Intake and Output for Last 24 Hours 07/28/23 07/29/23 07/30/23 23:59 23:59 23:59 Intake Total 670 / 670 Balance 670 / 670 Lab / Micro Data 07/30/23 04:45 07/30/23 04:45 Labs: Laboratory Results - last 24 hr 07/29/23 16:30: WBC 12.7 H, RBC 5.04, Hgb 14.2, Hct 44.8, MCV 88.9, MCH 28.2, MCHC 31.7 L, RDW Std Deviation 53.5 H, RDW Coeff of Serafin 16.5 H, Plt Count 348, MPV 9.8, Immature Gran % (Auto) 4.400 H, Neut % (Auto) 78.9 H, Lymph % (Auto) 9.0 L, Barron % (Auto) 6.8, Eos % (Auto) 0.3, Baso % (Auto) 0.6, Absolute Neuts (auto) 10.0 H, Absolute Lymphs (auto) 1.14, Nucleated RBC % 0, Sodium 132 L, Potassium 4.8, Chloride 99, Carbon Dioxide 29.0, Anion Gap 4 L, BUN 17, Creatinine 1.11 H, Estim Creat Clear Calc 75.12, Est GFR (MDRD) Af Amer 66, Est GFR (MDRD) Non-Af 55 L, BUN/Creatinine Ratio 15.3, Glucose 215 H, Lactic Acid 2.1 H*, Calcium 9.1, Troponin I High Sens 31, B-Natriuretic Peptide 266.8 H 07/29/23 17:51: Urine Color Yellow, Urine Clarity Sl. Cloudy, Urine pH 6.0, Ur Specific Buchanan 1.010, Urine Protein 100 H, Urine Glucose (UA) Normal, Urine Ketones Negative, Urine Occult Blood 25 H, Urine Nitrite Positive H, Urine Bilirubin 1 H, Urine Urobilinogen 1 H, Ur Leukocyte Esterase 500 H, Urine RBC 0-5 SEEN, Urine WBC 10-25 SEEN, Ur Squamous Epith Cells 5-10 SEEN, Urine Bacteria 4+, Urine Mucus 0 SEEN, Urine Opiates Screen NEGATIVE, Urine Methadone Screen NEGATIVE, Ur Barbiturates Screen NEGATIVE, Ur Phencyclidine Scrn NEGATIVE, Ur Amphetamines Screen NEGATIVE, MDMA (Ecstasy) Screen NEGATIVE, U Benzodiazepines Scrn NEGATIVE, Urine Cocaine Screen NEGATIVE, U Cannabinoids Screen NEGATIVE, UrDrug Screen Comment 07/29/23 21:05: Lactic Acid 1.1 07/30/23 04:45: WBC 13.1 H, RBC 5.04, Hgb 14.1, Hct 44.6, MCV 88.5, MCH 28.0, MCHC 31.6 L, RDW Std Deviation 53.0 H, RDW Coeff of Serafin 16.5 H, Plt Count 316, MPV 9.8, Immature Gran % (Auto) 2.700 H, Neut % (Auto) 88.9 H, Lymph % (Auto) 6.0 L, Barron % (Auto) 2.0, Eos % (Auto) 0.1, Baso % (Auto) 0.3, Absolute Neuts (auto) 11.7 H, Absolute Lymphs (auto) 0.79 L, Nucleated RBC % 0, Sodium 133 L, Potassium 5.0, Chloride 101, Carbon Dioxide 25.0, Anion Gap 7, BUN 20 H, Creatinine 1.40 H, Estim Creat Clear Calc 58.79, Est GFR (MDRD) Af Amer 51 L, Est GFR (MDRD) Non-Af 42 L, BUN/Creatinine Ratio 14.3, Glucose 338 H, Calcium 9.3 Micro: Microbiology 07/29/23 16:30 Mucosa - Nose SARS-CoV-2, Influenza & RSV (PCR) - Final Radiography Diagnostic Testing: Radiology Impression Chest X-Ray 07/29/23 16:37 IMPRESSION: 1. Heterogeneous opacities involving the lung bases may represent atelectasis versus infiltrate. 2. Bronchitis or asthma. Electronically Signed: Marcel Gunderson MD at 17:09 EDT , Physical Exam Const alert, oriented x3, no apparent distress and well nourished; Negative for average body habitus or healthy appearing Constitutional Narrative: Morbidly obese white female, middle-aged, sitting up on the edge of the bed without her oxygen in place, does not appear uncomfortable or toxic but affect is extremely flat HEENT head/scalp atraumatic and moist oral mucous membranes HEENT Narrative: Mallampati is 3-4, no thrush Head and Scalp: normocephalic Resp normal respiratory effort, no retractions, no use of accessory muscles and No clear to auscultation bilaterally Resp Narrative: Few scattered end expiratory wheezes but appears to be clinically improved from admission Auscultation: wheezes; Negative for crackles or rhonchi Cardio regular rate, regular rhythm, S1 normal heart sound, S2 normal heart sound, no murmurs, no rub and no gallops GI normal to inspection, nondistended, normoactive bowel sounds, soft to palpation and non-tender Extremity no clubbing, cyanosis or edema Extremity Narrative: Pedal pulses are 2+ Neuro oriented x3, moves all extremities and no focal motor deficits Speech: speech normal Psych Psych Narrative: Affect is flat, eye contact is fair, mood seems depressed Assessment & Plan Assessment/Plan (1) Acidosis, lactic: (2) Abnormal chest x-ray: (3) Abnormal finding on urinalysis: (4) Leukocytosis: (5) Dyspnea: (6) Leukocytosis: (7) Elevated serum creatinine: PLAN: Plan Abnormal urinalysis -Suggestive of infection -Cultures are pending -Continue ceftriaxone -Await identification of organism and sensitivity to rule in UTI Abnormal chest x-ray/shortness of breath/acute exacerbation of COPD -Patient remains on her baseline oxygen at 2 L -Continue to monitor and titrate up if need be -Chest x-ray reports infiltrates versus atelectasis -Continue Solu-Medrol for now with history of COPD--> patient has prednisone allergy so will not be able to do taper at discharge -Continue antibiotics with azithromycin and ceftriaxone -Strep pneumo and Legionella antigens are pending -Sputum cultures pending if patient able to produce -Add Mucinex 1200 twice daily -Add incentive spirometry -Add Acapella -Continue aggressive pulmonary toilet with scheduled and as needed nebulizers -COVID/flu/RSV negative -Check respiratory viral panel Leukocytosis -Mild initially however now on Solu-Medrol so will be elevated due to demargination of neutrophils -Will need to monitor clinically for improvement as white count will likely be elevated to the above Lactic acidosis -Resolved Elevated serum creatinine -Baseline appears to run between 1 and 1.25 -Current is 1.4 -Start IV fluids with LR at 100 cc/h -Repeat lab in a.m. Elevated blood pressure -Much better today with most recent was being 135/90 -Goal would be 130/80 with her history of diabetes -Will start low-dose losartan while hospitalized as this would be a nice conjunct give medication for her diabetes as well and provide renal protection Chronic hypoxic respiratory failure secondary to COPD/history of multiple PE -At baseline wears 2 L -Been currently on baseline oxygen -Encouraged outpatient pulmonary medicine with follow-up it appears the patient missed her last 3-month follow-up with Dr. Shea History of recurrent pulmonary emboli -Continue home Eliquis Diabetes -Patient is on Mounjaro as an outpatient -Will utilize SSI while hospitalized -Accu-Cheks as ordered GERD -Continue home omeprazole Diabetic neuropathy -Continue home gabapentin Schizophrenia/depression -Patient gets monthly injectable aripiprazole with last dose being 07/28/2023 -Continue home Wellbutrin Morbid obesity -BMI is 49.6 -Recommend weight loss -Complicates treatment, prognosis, outcomes History of tobacco abuse -Still smoking -Will offer nicotine patch if needed DVT prophylaxis -Continue home Eliquis CODE STATUS -DNR CCA with no intubation as verified on admission Charges/Coding Visit Charges Inpatient E&M: 00149 Subs Hosp L2 07/30/23 1207 <Electronically signed by Annabelle Ayoub DO> Cosigner Signature (if applicable): CC: ~ Signed [facility] Work Phone: [phone] Discharge summary Author Aundrea Espinoza [facility] July 29, 2023 11:12pm Note Date/Time July 29, 2023 4:1 8pm [facility] Medical Records Department [address] [place] [address] Emergency Department Summary 07/29/23 MR#: [id number] Acct: [id number] Name: SARINA DIOP Rep #:[id number] : 1970 52 From: Aundrea Espinoza DO PCP: LOUISE Solorio Status:ADM IN Location: [place] [address] HPI History of Present Illness Chief Complaint: Shortness of Breath Detail of Chief Complaint: Shortness of breath and syncope Informant: patient Narrative Narrative: Patient presents to the emergency department with complaint shortness of breath for about a month. Patient on 2 L nasal cannula O2 at all times. Patient states that she was started about a year ago on O2 after being diagnosed with pulmonary emboli. Patient has been taking her Eliquis regularly. She has had cough and at times bring up some phlegm. Today she went to urinate and sat on the toilet and then she must of passed out because she woke up and her head was kind of dangling over the toilet but her but was still on the toilet. She denies injury. She called EMS. Patient does not have history of CHF. She doesnot smoke. [facility] Medical History (Updated 07/29/23 @ 18:[address] Aundrea Espinoza DO) Acute respiratory failure Anxiety Bilateral pulmonary embolism BiPAP (biphasic positive airway pressure) dependence Bipolar disorder Bipolar disorder Cellulitis and abscess of neck Chronic back pain Chronic pain Depression Diabetes Kidney stones Bahman's angina Non-healing surgical wound Pulmonary embolism Pulmonary infarction Schizophrenia Smoker Tobacco abuse Upper airway obstruction Home Medications valacyclovir 1 gram tablet 1,000 mg PO DAILY anti virus 08/12/18 [History Last Taken 05/26/23] aripiprazole lauroxil 882 mg/3.2 mL suspension, ext.rel. IM syringe 882 mg IM QMONTH mental health 09/12/18 [History Last Taken 05/18/23] cholecalciferol (vitamin D3) 25 mcg (1,000 unit) tablet 5,000 unit PO DAILY vitamin 07/02/20 [History Last Taken 05/26/23] gabapentin 300 mg capsule 300 mg PO TIDCM nerve pain 07/02/20 [History Last Taken 05/26/23] bupropion HCl 300 mg 24 hr tablet, extended release 300 mg PO DAILY mental health 09/04/22 [History Last Taken 05/26/23] omeprazole 20 mg tablet,delayed release 20 mg PO DAILY reflux 09/04/22 [History Last Taken 05/26/23] acetaminophen 325 mg tablet 650 mg (2 x 325 mg) PO Q4H PRN PRN Fever, pain 1- 10/10 #0 tabs 09/05/22 [Rx Last Taken 05/26/23] albuterol sulfate 90 mcg/actuation aerosol inhaler (Ventolin HFA) 1 - 2 puff inhalation Q4H PRN PRN Wheezing ##1 09/24/22 [Rx Last Taken Unknown] apixaban 5 mg tablet (Eliquis) 5 mg PO Q12H 05/27/23 [History Last Taken Unknown] tirzepatide 5 mg/0.5 mL subcutaneous pen injector (Mounjaro) 5 mg subcut QWEEK 05/27/23 [History Last Taken 05/20/23] oseltamivir 75 mg capsule (Tamiflu) 75 mg PO BID 2 days #4 caps 05/30/23 [Rx Last Taken Unknown] prednisone 20 mg tablet 40 mg (2 x 20 mg) PO DAILY 2 days #4 tabs 05/30/23 [Rx Last Taken Unknown] Allergy/AdvReac Type Severity Reaction Status Date / Time prednisone AdvReac Other Verified 05/27/23 09:25 Sulfa (Sulfonamide AdvReac Rash Verified 05/27/23 09:25 Antibiotics) Surgical History History of adenoidectomy History of cholecystectomy Social History Smoking Status: Current every day smoker tobacco type: cigarettes Tobacco: How many years used: 30 second hand exposure: Yes alcohol intake: current alcohol intake frequency: holidays/special occasions only substance use type: does not use ROS ROS ED Review of Systems ROS Unobtainable: other Constitutional Constitutional ED: Reports lethargy; Denies chills, fever(s), sweats or weight loss Eyes Eyes: Denies blurry vision, change in vision or diplopia ENT ENT ED: Denies rhinorrhea or sore throat Cardiovascular Cardiovascular: Denies chest pain, orthopnea or racing heartbeat Respiratory/Chest Respiratory/Chest: Reports cough, dyspnea and dyspnea on exertion; Denies orthopnea or sputum Gastrointestinal Gastrointestinal: Denies abdominal pain, diarrhea, nausea or vomiting Genitourinary Genitourinary ED: Denies dysuria, hematuria or urinary frequency Musculoskeletal Musculoskeletal: Denies arthralgias, back pain, myalgias or neck pain Integumentary Denies abscess, Abrasions or rash Neurologic Neurologic: Reports other Details: Syncope ; Denies headache(s) or weakness Psychiatric Psychiatric: Denies anxiety, depression or suicidal thoughts Endocrine Endocrinology: Denies polydipsia, polyphagia or polyuria Hematologic/Lymphatic Hematologic/Lymphatic: Denies easy bleeding, easy bruising or lymphadenopathy Allergic/Immunologic Allergic/Immunologic ED: Denies mouth swelling, tongue swelling or urticaria EXAM Physical Exam Const Vital Signs: 07/29/23 16:03 07/29/23 16:30 07/29/23 16:43 Temperature 99.5 F H Temperature Source Oral Pulse Rate 94 85 Respiratory Rate 33 H 18 Respiratory Effort Respiratory Depth Respiratory Pattern Normal Blood Pressure 185/115 H Blood Pressure Mean 138 Pulse Ox 98 Oxygen Delivery Method Nasal Cannula Nasal Cannula Oxygen Flow Rate (L/min) 2 2 07/29/23 16:43 07/29/23 16:05 07/29/23 17:05 Temperature 99.5 F H 99.5 F H Temperature Source Temporal Oral Pulse Rate 92 88 Respiratory Rate 25 H 28 H Respiratory Effort Short of Breath Labored Respiratory Depth Shallow Respiratory Pattern Tachypnea Blood Pressure 164/115 H 144/93 H Blood Pressure Mean 131 110 Pulse Ox 97 98 Oxygen Delivery Method Nasal Cannula Nasal Cannula Room Air Oxygen Flow Rate (L/min) 2 2 Positive well nourished and well developed General Appearance ED: well developed and NAD HEENT Reports TM's clear and moist mucous membranes normocephalic and atraumatic; Negative for trauma or tenderness Tympanic Membrane ED: Yes TM's clear Eyes PERRL and EOMs intact bilaterally General Eye ED: Negative for pale conjunctiva or scleral icterus Neck no lymphadenopathy, supple and no JVD General: Negative for tenderness Chest Wall inspection of chest normal and palpation of chest normal Chest: Negative for tenderness Resp normal respiratory effort and clear to auscultation bilaterally Resp Narrative: Few faint wheezes bilaterally. Mild tachypnea. No accessory muscle use or retractions. Effort and Inspection: Negative for respiratory distress or pain with movement Auscultation: Negative for rhonchi, wheezes or diminished lung sounds Cardio regular rate, regular rhythm, S1 normal heart sound, S2 normal heart sound and no murmurs Peripheral Pulses: pulses 2+ throughout GI normal to inspection, nondistended, normoactive bowel sounds, soft to palpation,non-tender, non-distended and no masses Back/Spine no CVA tenderness and no thoracic nor lumbar tenderness Extremity normal to inspection General Extremety ED: Negative for edema General Extremity: Negative for edema Neuro oriented x3, CN's II-XII intact bilaterally, no sensory deficits noted and gait normal Sensorium / Orientation: awake, alert, oriented to person, oriented to place andoriented to time Motor Exam: strength 5/5 throughout and strength abnormal Psych mental status grossly normal Skin no rashes or lesions noted and no wounds MDM MDM MDM Narrative Medical decision making narrative: Patient presents with shortness of breath and cough with low-grade fever. IV line established. Blood cultures ordered. CBC with differential white count 12.7 with hemoglobin 14.2 and platelet count of 348. Chemistries unremarkable. EKG obtained arrival showed a sinus rhythm with rate of 91 bpm with LVH. Troponin was normal at 31 and BNP was elevated to 66.8. Lactate was elevated 2.1. Urinalysis concerning for UTI. Chest x-ray 1 view showed increased markings in the lower lobes suspicious for infiltrate. Patient was started on Levaquin IV. I did give patient a DuoNeb aerosol and started on Solu-Medrol. She does have history of COPD. Will discuss case with hospitalist to evaluate patient for admission as she continues to be tachypneic. Lab Data Attestation: I reviewed the patient's lab results. Labs: Laboratory Results - last 24 hr 07/29/23 07/29/23 16:30 17:51 WBC 12.7 H RBC 5.04 Hgb 14.2 Hct 44.8 MCV 88.9 MCH 28.2 MCHC 31.7 L RDW Std Deviation 53.5 H RDW Coeff of Serafin 16.5 H Plt Count 348 MPV 9.8 Immature Gran % (Auto) 4.400 H Neut % (Auto) 78.9 H Lymph % (Auto) 9.0 L Barron % (Auto) 6.8 Eos % (Auto) 0.3 Baso % (Auto) 0.6 Absolute Neuts (auto) 10.0 H Absolute Lymphs (auto) 1.14 Nucleated RBC % 0 Sodium 132 L Potassium 4.8 Chloride 99 Carbon Dioxide 29.0 Anion Gap 4 L BUN 17 Creatinine 1.11 H Estim Creat Clear Calc 75.12 Est GFR (MDRD) Af Amer 66 Est GFR (MDRD) Non-Af 55 L BUN/Creatinine Ratio 15.3 Glucose 215 H Lactic Acid 2.1 H* Calcium 9.1 Troponin I High Sens 31 B-Natriuretic Peptide 266.8 H Urine Color Yellow Urine Clarity Sl. Cloudy Urine pH 6.0 Ur Specific Buchanan 1.010 Urine Protein 100 H Urine Glucose (UA) Normal Urine Ketones Negative Urine Occult Blood 25 H Urine Nitrite Positive H Urine Bilirubin 1 H Urine Urobilinogen 1 H Ur Leukocyte Esterase 500 H Radiography Diagnostic Testing: Clinical Impression(s) from Imaging Studies Chest X-Ray 07/29/23 16:37 IMPRESSION: 1. Heterogeneous opacities involving the lung bases may represent atelectasis versus infiltrate. 2. Bronchitis or asthma. Electronically Signed: Marcel Gunderson MD at 17:09 EDT , 1 view x-ray obtained interpreted by myself as increased markings in the bases which I suspect may be atelectasis versus infiltrate. Radiology was in agreement. EKG Initial EKG: Attestation: I personally reviewed and interpreted this EKG as follows: Comments: Sinus rhythm with rate of 91 bpm with voltage criteria for for LVH. Discharge Plan Triage Chief Complaint: Shortness of Breath ED Provider: Aundrea Espinoza Dx/Rx/DC Orders Clinical Impression: UTI (urinary tract infection), Dyspnea, Leukocytosis, Pneumonia, Acidosis, lactic Prescriptions: No Action valacyclovir 1,000 MG tablet 1,000 mg PO DAILY aripiprazole lauroxil 882 MG/3.2 ML suspension,extended rel syring 882 mg IM QMONTH gabapentin 300 MG capsule 300 mg PO TIDCM cholecalciferol (vitamin D3) 1,000 UNIT tablet 5,000 unit PO DAILY omeprazole 20 mg Tablet,Delayed Release (Dr/Ec) 20 mg PO DAILY bupropion HCl 300 mg tablet extended release 24 hr 300 mg PO DAILY acetaminophen 325 mg Tablet 650 mg PO Q4H PRN PRN (Reason: Fever, pain 1-01/25) Qty: 0 0RF albuterol sulfate [Ventolin HFA] 90 mcg/actuation HFA aerosol inhaler 1 - 2 puff inhalation Q4H PRN PRN (Reason: Wheezing) Qty: 1 0RF Eliquis 5 mg tablet 5 mg PO Q12H Mounjaro 5 mg/0.5 mL pen injector 5 mg subcut QWEEK prednisone 20 mg tablet 40 mg PO DAILY 2 Days Qty: 4 0RF oseltamivir [Tamiflu] 75 mg capsule 75 mg PO BID 2 Days Qty: 4 0RF Primary Care Provider: Aifa Driscoll NP Referrals: Afia Driscoll NP, [employer] [Primary Care Provider] - Disposition Disposition: Acute Care Hospital [facility] What to do if you have Problems For any increased pain, shortness of breath, bleeding, nausea or vomiting, chestpain, or any unexpected problems, contact your Primary Care Provider. Call [facility] ([phone]) or report to the closest Emergency Room. Call 911 if necessary. 07/29/23 2312 <Electronically signed by Aundrea Espinoza DO> Cosigner Signature (if applicable): CC: [employer] Afia Driscoll ~ Signed [facility] Work Phone: 1(214) 903-724604-12-2024 History and physical note Author Sergey Colon [facility] July 29, 2023 7:25pm Note Date/Time July 29, 2023 6:5 6pm [facility] Medical Records Department [address] [place] [address] H&P Exam - Hospitalist 07/29/23 1853 MR#: [id number] Acct: [id number] Name: SARINA DIOP Rep #:[id number] : 1970 52 From: Sergey velarde MD PCP: Afia Driscoll, [employer] Status:ADM IN Location: [place] [id number]- 1 HPI - General General Date of Admission: 07/29/23 HPI Narrative SARINA DIOP, is a 52 F who presents to the hospital with syncope as well as pneumonia and possible UTI. She has been feeling feverish and chilled for the last couple of days, white count 12.7. She does have a history of COPD and hypoxia secondary to a PE and she is maintained on her 2 L nasal cannula. She states that she was sitting on the toilet going to the bathroom and then she woke up still on the toilet but her head was resting on the vanity. She denies any injuries and the series of events seems to be vasovagal in origin. Chest x-ray demonstrated bilateral lower lobe opacities. She was given a dose of steroids as well as Levaquin in the ER. She did have a slight elevation in her lactic acid to 2.1 and her UA is consistent with a UTI as well though she deniesany dysuria. [facility] Medical History (Updated 07/29/23 @ 18:[address] Aundrea Espinoza, ) Acute respiratory failure Anxiety Bilateral pulmonary embolism BiPAP (biphasic positive airway pressure) dependence Bipolar disorder Bipolar disorder Cellulitis and abscess of neck Chronic back pain Chronic pain Depression Diabetes Kidney stones Bahman's angina Non-healing surgical wound Pulmonary embolism Pulmonary infarction Schizophrenia Smoker Tobacco abuse Upper airway obstruction Home Medications valacyclovir 1 gram tablet 1,000 mg PO DAILY anti virus 08/12/18 [History Last Taken 05/26/23] aripiprazole lauroxil 882 mg/3.2 mL suspension, ext.rel. IM syringe 882 mg IM QMONTH mental health 09/12/18 [History Last Taken 05/18/23] cholecalciferol (vitamin D3) 25 mcg (1,000 unit) tablet 5,000 unit PO DAILY vitamin 07/02/20 [History Last Taken 05/26/23] gabapentin 300 mg capsule 300 mg PO TIDCM nerve pain 07/02/20 [History Last Taken 05/26/23] bupropion HCl 300 mg 24 hr tablet, extended release 300 mg PO DAILY mental health 09/04/22 [History Last Taken 05/26/23] omeprazole 20 mg tablet,delayed release 20 mg PO DAILY reflux 09/04/22 [History Last Taken 05/26/23] acetaminophen 325 mg tablet 650 mg (2 x 325 mg) PO Q4H PRN PRN Fever, pain 1- 01/25 #0 tabs 09/05/22 [Rx Last Taken 05/26/23] albuterol sulfate 90 mcg/actuation aerosol inhaler (Ventolin HFA) 1 - 2 puff inhalation Q4H PRN PRN Wheezing ##1 09/24/22 [Rx Last Taken Unknown] apixaban 5 mg tablet (Eliquis) 5 mg PO Q12H 05/27/23 [History Last Taken Unknown] tirzepatide 5 mg/0.5 mL subcutaneous pen injector (Mounjaro) 5 mg subcut QWEEK 05/27/23 [History Last Taken 05/20/23] oseltamivir 75 mg capsule (Tamiflu) 75 mg PO BID 2 days #4 caps 05/30/23 [Rx Last Taken Unknown] prednisone 20 mg tablet 40 mg (2 x 20 mg) PO DAILY 2 days #4 tabs 05/30/23 [Rx Last Taken Unknown] Allergy/AdvReac Type Severity Reaction Status Date / Time prednisone AdvReac Other Verified 05/27/23 09:25 Sulfa (Sulfonamide AdvReac Rash Verified 05/27/23 09:25 Antibiotics) Family History adopted adopted Surgical History History of adenoidectomy History of cholecystectomy Social History Smoking Status: Current every day smoker tobacco type: cigarettes Tobacco: How many years used: 30 second hand exposure: Yes alcohol intake: current alcohol intake frequency: holidays/special occasions only substance use type: does not use ROS Constitutional Constitutional: Reports chills, fatigue and fever(s); Denies malaise Eyes Eyes: Denies blurry vision ENT HEENT: Denies headache(s) or nasal discharge Cardiovascular Cardiovascular: Reports syncope; Denies chest pain or dyspnea on exertion Respiratory/Chest Respiratory/Chest: Reports cough and shortness of breath at rest; Denies shortness of breath with exertion Gastrointestinal Gastrointestinal: Denies constipation, diarrhea, nausea or vomiting Genitourinary Genitourinary: Denies dysuria Neurologic Neurologic: Denies focal weakness, numbness or tremor(s) Psychiatric Psychiatric: Denies anxiety or depression Vital Signs Vital Signs Vital Signs: 07/29/23 16:03 07/29/23 16:30 07/29/23 16:43 Temperature 99.5 F H Temperature Source Oral Pulse Rate 94 85 Respiratory Rate 33 H 18 Respiratory Effort Respiratory Depth Respiratory Pattern Normal Blood Pressure 185/115 H Blood Pressure Mean 138 Pulse Ox 98 Oxygen Delivery Method Nasal Cannula Nasal Cannula Oxygen Flow Rate (L/min) 2 2 07/29/23 16:43 07/29/23 16:05 07/29/23 17:05 Temperature 99.5 F H 99.5 F H Temperature Source Temporal Oral Pulse Rate 92 88 Respiratory Rate 25 H 28 H Respiratory Effort Short of Breath Labored Respiratory Depth Shallow Respiratory Pattern Tachypnea Blood Pressure 164/115 H 144/93 H Blood Pressure Mean 131 110 Pulse Ox 97 98 Oxygen Delivery Method Nasal Cannula Nasal Cannula Room Air Oxygen Flow Rate (L/min) 2 2 07/29/23 18:00 07/29/23 18:00 07/29/23 18:29 Temperature 99.5 F H 98.2 F Temperature Source Oral Pulse Rate 90 90 87 Respiratory Rate 26 H 24 H 24 H Respiratory Effort Respiratory Depth Respiratory Pattern Blood Pressure 141/93 H 141/93 H 141/93 H Blood Pressure Mean 109 109 109 Pulse Ox 98 98 98 Oxygen Delivery Method Room Air Nasal Cannula Oxygen Flow Rate (L/min) 2 Weight Weight: 276 lb 10.882 oz Body Mass Index (BMI) 50.5 Physical Exam Narrative General: Alert, Oriented x3, Cooperative, No apparent distress HEENT: Atraumatic, PERRLA, EOMI, Normocephalic Oral: Moist Mucosa, hoarse voice from coughing Neck: Supple, No JVD Lungs: Diminished, Normal air movement, No rhonchi, No wheeze, No rales, tachypneic Cardiovascular: Regular rate, Regular Rhythm, Normal S1, Normal S2, No murmurs Abdomen: Soft, Non Tender, Non-Distended, No Hepato-splenomegaly Extremities: No edema, Capillary Refill Less than 3 Seconds Skin: No rashes, No breakdown Musculoskeletal: No Tenderness to Palpation of Joints or Extremities Neurological: No focal neurological deficits, Motor Exam 5/5 strength throughout, Sensory exam intact to light touch and pain Psych/Mental Status: Flat Results Lab / Micro Data 07/29/23 16:30 07/29/23 16:30 Labs: Laboratory Results - last 24 hr 07/29/23 16:30: WBC 12.7 H, RBC 5.04, Hgb 14.2, Hct 44.8, MCV 88.9, MCH 28.2, MCHC 31.7 L, RDW Std Deviation 53.5 H, RDW Coeff of Serafin 16.5 H, Plt Count 348, MPV 9.8, Immature Gran % (Auto) 4.400 H, Neut % (Auto) 78.9 H, Lymph % (Auto) 9.0 L, Barron % (Auto) 6.8, Eos % (Auto) 0.3, Baso % (Auto) 0.6, Absolute Neuts (auto) 10.0 H, Absolute Lymphs (auto) 1.14, Nucleated RBC % 0, Sodium 132 L, Potassium 4.8, Chloride 99, Carbon Dioxide 29.0, Anion Gap 4 L, BUN 17, Creatinine 1.11 H, Estim Creat Clear Calc 75.12, Est GFR (MDRD) Af Amer 66, Est GFR (MDRD) Non-Af 55 L, BUN/Creatinine Ratio 15.3, Glucose 215 H, Lactic Acid 2.1 H*, Calcium 9.1, Troponin I High Sens 31, B-Natriuretic Peptide 266.8 H 07/29/23 17:51: Urine Color Yellow, Urine Clarity Sl. Cloudy, Urine pH 6.0, Ur Specific Buchanan 1.010, Urine Protein 100 H, Urine Glucose (UA) Normal, Urine Ketones Negative, Urine Occult Blood 25 H, Urine Nitrite Positive H, Urine Bilirubin 1 H, Urine Urobilinogen 1 H, Ur Leukocyte Esterase 500 H, Urine RBC 0-5 SEEN, Urine WBC 10-25 SEEN, Ur Squamous Epith Cells 5-10 SEEN, Urine Bacteria 4+, Urine Mucus 0 SEEN Micro: Microbiology 07/29/23 16:30 Mucosa - Nose SARS-CoV-2, Influenza & RSV (PCR) - Final Imaging Radiology Impression Chest X-Ray 07/29/23 16:37 IMPRESSION: 1. Heterogeneous opacities involving the lung bases may represent atelectasis versus infiltrate. 2. Bronchitis or asthma. Electronically Signed: Marcel Gunderson MD at 17:09 EDT Reading Location ID and State: [facility] / [place] Tel , Service support , Assessment & Plan Assessment/Plan (1) Pneumonia: (2) UTI (urinary tract infection): PLAN: Plan 1. Vasovagal syncope in the setting of pneumonia and UTI ? No further workup for her syncopal episode ? Continue with Rocephin and azithromycin for her pneumonia and UTI ? Sputum cultures pending as is urine culture ? Will obtain Legionella and strep antigens 2. COPD exacerbation ? She is not requiring any increased oxygen however she is wheezing on exam and given the pneumonia will continue with DuoNebs and steroids though could likely wean the steroids quickly 3. History of a PE ? Will have to restart anticoagulation once verified 4. Bipolar disorder/anxiety ? Can resume her home medications when verified ? Stable 5. GERD ? Stable ? Continue with PPI when verified DVT: Heparin 75 minutes was spent on direct patient care, including documentation as well as chart review and collaboration with colleagues Charges/Coding Visit Charges Inpatient E&M: 89737 Init Hosp L3 07/29/231924 <Electronically signed by Sergey Colon MD> Cosigner Signature (if applicable): CC: LOUISE Driscoll; Dr. Sergey Colon MD~ Signed [facility] Work Phone: 1(777) 119-673002-12-2024 Discharge summary Author Nilson Magallanessuzie [facility] May 30, 2023 12:46pm Note Date/Time May 30, 2023 12:42pm [facility] Medical Records Department [address] [place] [id number] Instructions for Home/Discharge Instructions 05/30/23 1241 MR#: [id number] Acct: [id number] Name: SARINA DIOP Rep #:[id number] : 1970 52 From: Nilson duval DO PCP: LOUISE Solorio Status:ADM IN Discharge Instructions Diet Discharge Diet: No restrictions Activity Discharge Activity: No Restrictions Weight Bearing Status: Full weight bearing Follow Up Care Test Results: Test results from this visit will be discussed in further detail at your follow- up appointment, if applicable. Discharge Plan Admission Admit Date/Time: 05/27/23 12:52 Primary Reason for Your Visit: cough and shortness of breath Attending Provider: Nilson Green Primary Care Provider: Afia Driscoll NP Instructions Additional Instructions / Restrictions: Please take 2 more days of Tamiflu and prednisone to complete 5-day courses of flu medication and steroids. Please follow-up with your primary care doctor in the office in the next few weeks and with the lung doctor as previously scheduled. Discharge Orders/Prescriptions Prescriptions: New prednisone 20 mg tablet 40 mg PO DAILY 2 Days Qty: 4 0RF oseltamivir [Tamiflu] 75 mg capsule 75 mg PO BID 2 Days Qty: 4 0RF Continued valacyclovir 1,000 MG tablet 1,000 mg PO DAILY aripiprazole lauroxil 882 MG/3.2 ML suspension,extended rel syring 882 mg IM QMONTH gabapentin 300 MG capsule 300 mg PO TIDCM cholecalciferol (vitamin D3) 1,000 UNIT tablet 5,000 unit PO DAILY omeprazole 20 mg Tablet,Delayed Release (Dr/Ec) 20 mg PO DAILY bupropion HCl 300 mg tablet extended release 24 hr 300 mg PO DAILY acetaminophen 325 mg Tablet 650 mg PO Q4H PRN PRN (Reason: Fever, pain 1-01/25) Qty: 0 0RF albuterol sulfate [Ventolin HFA] 90 mcg/actuation HFA aerosol inhaler 1 - 2 puff inhalation Q4H PRN PRN (Reason: Wheezing) Qty: 1 0RF Eliquis 5 mg tablet 5 mg PO Q12H Mounjaro 5 mg/0.5 mL pen injector 5 mg subcut QWEEK Referrals / Follow Up: Afia Driscoll NP, [employer] [Primary Care Provider] - Disposition Disposition (needs filled in before D/C Order can be placed): Home, Self Care 05/30/23 1246<Electronically signed by Nilson Green DO>Nilson Green DO CC: [employer] Afia Driscoll ~ Signed [facility] Work Phone: 1(735) 179-733302-11-2024 Consult note Author Nilson Green [facility] May 29, 2023 5:30pm Note Date/Time May 27, 2023 8 :18pm [facility] Medical Records Department [address] [place] [address] Pharmacokinetic/Renal -Consult 05/27/232016 MR#: [id number] Acct: [id number] Name: SARINA DIOP Rep #:[id number] : 1970 52 From: Shayla Mckeon PCP: LOUISE Solorio Status:ADM IN Y Location: [place] [address] Consult Antibiotic Management Pharmacy has been consulted to manage selected antibiotic: Vancomycin Type of Intervention Type of Consult: New start Suspected Infection Suspected Infection: Pneumonia Labs Labs: Sodium 138 mmol/L (136-145) 05/27/23 09:18 Potassium 4.0 mmol/L (3.5-5.1) 05/27/23 09:18 Chloride 104 mmol/L (98-107) 05/27/23 09:18 Carbon Dioxide 27.0 mmol/L (21.0-32.0) 05/27/23 09:18 Anion Gap 7 (5-15) 05/27/23 09:18 BUN 14 mg/dL (7-18) 05/27/23 09:18 Creatinine 1.29 mg/dL (0.55-1.02) H 05/27/23 09:18 Est GFR (MDRD) Af Amer 56 mL/min (>60) L 05/27/23 09:18 Est GFR (MDRD) Non-Af 46 mL/min (>60) L 05/27/23 09:18 BUN/Creatinine Ratio 10.9 RATIO (10-20) 05/27/23 09:18 Glucose 238 mg/dL (74-106) H 05/27/23 09:18 Microbiology Microbiology: Microbiology 05/27/23 11:18 Mucosa - Nose SARS-CoV-2, Influenza & RSV (PCR) - Final Influenzae A Pharmacy Plan for Drug Dosing Pharmacy Plan for Drug Dosing: NEW START IV VANCOMYCIN Consulting Physician: Peter Indication: Pneumonia Goal Trough: 15-20 mg/dl SrCr: 1.29 mg/dL (05/27/23) CrCl: 64 mL/min (using adjusted BW) Comments: 2000mg loading dose given 05/27 @ 1817 Vancomycin Dose: Will start 1500mg Q12 and get a trough prior to 4th dose per policy. Pending Level: 05/29 @ 0530 Pharmacy Service will continue to monitor and adjust dosing as required. 05/27/23 2018 <Electronically signed by Shayla Mckeon> Date _ Shayla Mckeon 05/29/23 1730 <Electronically signed by Nilson king DO> Cosigner Signature (if applicable): Date Nilson Green DO CC: ~ Signed [facility] Work Phone: 1(206) 123-672902-11-2024 Progress note Author Nilsno Green [facility] May 29, 2023 3:46pm Note Date/Time May 29, 2023 3:46pm [facility] Medical Records Department [address] [place] [address] Progress Note - Hospitalist 05/29/23 1544 MR#: [id number] Acct: [id number] Name: SARINA DIOP Rep #:[id number] : 1970 52 From: Nilson duval DO PCP: LOUISE Solorio Status:ADM IN Location: [place] [id number]- Reason for Visit Reason for Visit: Diagnoses Influenza due to identified novel influenza A virus with pneumonia (05/27/23) Chronic obstructive pulmonary disease with (acute) exacerbation (05/27/23) Hypoxemia (05/27/23) Subjective Subjective No acute events overnight. Patient seen at bedside this morning. Patient was laying comfortably bed, conversing normally, no acute distress. Feels similar today to yesterday, endorses mild dry cough but otherwise denies any fevers or chills or any other acute concerns at this time. Objective Data Objective Data Vital Signs: Vital Signs Temp Pulse Resp BP Pulse Ox O2 Del Method O2 Flow Rate 99.1 F 89 20 H 112/68 96 Nasal Cannula 2 05/29/23 09:31 05/29/23 11:00 05/29/23 11:00 05/29/23 09:31 05/29/23 09:31 05/29/23 13:59 05/29/23 13:59 FiO2 4 05/27/23 21:00 Oxygen Flow Rate (L/min) 2 Oxygen Delivery Method Nasal Cannula Weight: 128.4 kg Body Mass Index (BMI) 51.7 Intake & Output: Intake and Output for Last 24 Hours 05/27/23 05/28/23 05/29/23 23:59 23:59 23:59 Intake Total 645.25 / 885.25 2170 / 2410 1590.00 / 1590.00 Output Total 250 / 250 Balance 645.25 / 885.25 1920 / 2160 1590.00 / 1590.00 Lab / Micro Data 05/28/23 05:34 05/28/23 05:34 Labs: Laboratory Results - last 24 hr 05/28/23 16:19: POC Glucose 257 H 05/28/23 20:10: POC Glucose 244 H 05/29/23 05:18: POC Glucose 117 H 05/29/23 05:31: Vancomycin Trough 17.4 H 05/29/23 11:44: POC Glucose 180 H Micro: Microbiology 05/28/23 16:05 Urine, Clean Catch Legionella Antigen - Final 05/28/23 16:05 Urine, Clean Catch Streptococcus pneumoniae Antigen (M - Final 05/27/23 11:18 Mucosa - Nose SARS-CoV-2, Influenza & RSV (PCR) - Final Influenzae A Rhythm Strip Rhythm Strip: Sinus Rhythm Rate: 90 Ectopy: PVC(s) Physical Exam Const alert and oriented x3 Constitutional Narrative: Pleasant middle-aged female, morbidly obese, laying comfortably in bed, conversing normally, no acute distress. General Appearance: cooperative and comfortable HEENT normocephalic, head/scalp atraumatic, hearing grossly normal bilaterally, nasal mucous membranes and turbinates normal and moist oral mucous membranes Eyes PERRL, EOMs intact bilaterally and conjunctivae normal Neck full ROM, no lymphadenopathy and supple Lymph Lymphatic: no lymphadenopathy noted Chest inspection of chest normal Resp Resp Narrative: Breathing comfortably on 4 L nasal cannula. Mildly decreased breath sounds bilaterally throughout, no wheezing or crackles noted. Cardio regular rate, regular rhythm, no murmurs and peripheral pulses 2+ throughout GI normal to inspection, nondistended, normoactive bowel sounds, soft to palpation,non-tender and non-distended Back/Spine normal ROM Extremity normal to inspection, full ROM and no pedal edema Skin no rashes or lesions noted Neuro moves all extremities and no focal motor deficits Speech: speech normal Psych mental status grossly normal Assessment & Plan Assessment/Plan (1) Hypoxemia: (2) Acute exacerbation of chronic obstructive pulmonary disease (COPD): (3) Influenza A with pneumonia: PLAN: Plan Patient is a 52-year-old female who presented to [facility] ED on 05/27/2023 with worsening cough and shortness of breath. 1. Influenza A infection, COPD exacerbation with acute hypoxia, concern for superimposed bacterial pneumonia Influenza A positive in ED. Recently diagnosed with COPD, PFTs done in 12/2022 showed moderate large airways obstructive ventilatory defect with no significantresponse to bronchodilators. Has not seen pulmonology in the office since then,only on home rescue inhaler with no long-acting inhalers. Not on home O2. Requiring 2 L nasal cannula in ED for hypoxia. Chest x-ray shows focal left lower lobe infiltrate. Febrile to 101.9F, tachycardic, tachypneic, hypertensivein the ED. WBC count 7000. Procalcitonin 0.15. BNP 148. ? Continue to treat with IV Solu-Medrol 40 mg daily, scheduled DuoNebs, Tamiflu. Continue vancomycin and Zosyn for now, blood cultures and sputum culture pending. Wean supplemental oxygen as able. Incentive spirometry ordered. Patient will need O2 ambulatory test prior to discharge. 2. Mild creatinine elevation, improving ? Creatinine 1.29 on admit, baseline creatinine appears to be around 1.0-1.2. Creatinine mildly improved to 1.19 on 05/28. Suspect patient was mildly dry in admission. No need for IV fluids at this time, encouraging p.o. intake. 3. Type 2 diabetes mellitus with hyperglycemia, diabetic neuropathy ? Blood glucose 238 on admit. Last A1c 9.2% in 09/2022. Repeat A1c 7.0% on 05/28. Only on home tirzepatide weekly. Sliding-scale insulin while inpatient. 4. Elevated blood pressure readings, improving ? No history of hypertension, not on any home antihypertensives. BP is elevatedto 170s to 190s systolic and up to 130s diastolic on admit. Suspect secondary to acute stress state. IV hydralazine as needed ordered. Chronic medical conditions: ? Morbid obesity: BMI 51 on admit. Complicates hospital course, care and prognosis. ? CAMMIE: Nonadherent to home CPAP. Nasal cannula at night while inpatient. ? Bipolar disorder: Continue home Wellbutrin. Also receives monthly aripiprazole injection, last injection was about 1 week prior to admission. Hasbeen on this regimen for several years with good stability in patient's mood. ? History of VTE: Bilateral PE diagnosed in 08/2022, unclear etiology. Continue home Eliquis. ? GERD: Continue home PPI. ? History of cigarette smoking DVT prophylaxis: Eliquis CODE STATUS: Full code, verified Expected disposition: Home, 1 to 2 days Total clinical time spent by myself addressing the patient's medical issues, reviewing all the data, and collaborating with patient's care team: 35 minutes. Charges/Coding Visit Charges Inpatient E&M: 78389 Subs Hosp L2 05/29/23 1546 <Electronically signed by Nilson Green DO> Cosigner Signature (if applicable): CC: ~ Signed [facility] Work Phone: 1(280) 363-244702-11-2024 Consult note Author Frank Eugene [facility] May 29, 2023 6:32am Note Date/Time May 29, 2023 6:32am [facility] Medical Records Department [address] [place] [address] Pharmacokinetic/Renal -Consult 05/29/23 0631 MR#: [id number] Acct: [id number] Name: SARINA DIOP Rep #:[id number] : 1970 52 From: Frank Rizo od PCP: LOUISE Solorio Status:ADM IN Y Location: [place] [address]- 1 Consult Antibiotic Management Pharmacy has been consulted to manage selected antibiotic: Vancomycin Type of Intervention Type of Consult: Follow-up Labs Labs: Sodium 140 mmol/L (136-145) 05/28/23 05:34 Potassium 4.8 mmol/L (3.5-5.1) 05/28/23 05:34 Chloride 106 mmol/L (98-107) 05/28/23 05:34 Carbon Dioxide 30.0 mmol/L (21.0-32.0) 05/28/23 05:34 Anion Gap 4 (5-15) L 05/28/23 05:34 BUN 18 mg/dL (7-18) 05/28/23 05:34 Creatinine 1.19 mg/dL (0.55-1.02) H 05/28/23 05:34 Est GFR (MDRD) Af Amer 61 mL/min (>60) 05/28/23 05:34 Est GFR (MDRD) Non-Af 51 mL/min (>60) L 05/28/23 05:34 BUN/Creatinine Ratio 15.1 RATIO (10-20) 05/28/23 05:34 Glucose 141 mg/dL (74-106) H 05/28/23 05:34 Vancomycin Trough 17.4 ug/mL (5.0-15.0) H 05/29/23 05:31 Microbiology Microbiology: Microbiology 05/28/23 16:05 Urine, Clean Catch Legionella Antigen - Final 05/28/23 16:05 Urine, Clean Catch Streptococcus pneumoniae Antigen (M - Final 05/27/23 11:18 Mucosa - Nose SARS-CoV-2, Influenza & RSV (PCR) - Final Influenzae A Goal Trough Goal Trough: 15-20 mcg/mL Pharmacy Plan for Drug Dosing Pharmacy Plan for Drug Dosing: Pharmacy Service will continue to monitor and adjust dosing as required. TROUGH 17.4 @ 12 HOURS. NO CHANGES, FOLLOW UP TROUGH IN 2 DAYS Follow-Up Labs Follow-Up Labs: Trough: Vancomycin Date/Time Labs Ordered Labs to be done on [date and time ordered]: 05/31 @ 0530 05/29/23 0632 <Electronically signed by Frank woods> Date _ Frank Richardsonwillardmumtaz Signature (if applicable): Date CC: ~ Signed [facility] Work Phone: 1(861) 497-465902-10-2024 Progress note Author Nilson Green [facility] May 28, 2023 2:35pm Note Date/Time May 28, 2023 12:29pm [facility] Medical Records Department [address] [place] [address] Progress Note - Hospitalist 05/28/23 1229 MR#: [id number] Acct: [id number] Name: SARINA DIOP Rep #:[id number] : 1970 52 From: Nilson duval DO PCP: Afia Driscoll NP-C Status:ADM IN Location: [place] [address] 1 Reason for Visit Reason for Visit: Diagnoses Influenza due to identified novel influenza A virus with pneumonia (05/27/23) Chronic obstructive pulmonary disease with (acute) exacerbation (05/27/23) Hypoxemia (05/27/23) Subjective Subjective No acute events overnight. Patient seen at bedside this morning. Patient states she feels improved this morning, states her fevers broke overnight and she generally feels more comfortable today than yesterday. She does continue tohave a cough, is asking for cough drops and cough suppressant medication. She otherwise is breathing comfortably on 4 L nasal cannula, similar to yesterday. Denies any other acute concerns this time. Objective Data Objective Data Vital Signs: Vital Signs Temp Pulse Resp BP Pulse Ox O2 Del Method O2 Flow Rate 98.0 F 95 20 H 143/76 H 96 Nasal Cannula 4 05/28/23 10:00 05/28/23 10:00 05/28/23 10:00 05/28/23 10:00 05/28/23 10:00 05/28/23 10:09 05/28/23 10:09 FiO2 4 05/27/23 21:00 Oxygen Flow Rate (L/min) 4 Oxygen Delivery Method Nasal Cannula Weight: 128.4 kg Body Mass Index (BMI) 51.7 Intake & Output: Intake and Output for Last 24 Hours 05/26/23 05/27/23 05/28/23 23:59 23:59 23:59 Intake Total 645.25 / 885.25 1350 / 1350 Balance 645.25 / 885.25 1350 / 1350 Lab / Micro Data 05/28/23 05:34 05/28/23 05:34 Labs: Laboratory Results - last 24 hr 05/27/23 15:21: POC Glucose 194 H 05/27/23 15:31: Procalcitonin 0.15 H 05/27/23 20:55: POC Glucose 290 H 05/28/23 05:30: POC Glucose 145 H 05/28/23 05:34: WBC 6.9, RBC 5.12, Hgb 15.3 H, Hct 48.5 H, MCV 94.7, MCH 29.9, MCHC 31.5 L, RDW Std Deviation 53.9 H, RDW Coeff of Serafin 15.5 H, Plt Count 249, MPV 9.4, Sodium 140, Potassium 4.8, Chloride 106, Carbon Dioxide 30.0, Anion Gap4 L, BUN 18, Creatinine 1.19 H, Estim Creat Clear Calc 71.08, Est GFR (MDRD) Af Amer 61, Est GFR (MDRD) Non-Af 51 L, BUN/Creatinine Ratio 15.1, Glucose 141 H, Hemoglobin A1c 7.0 H, Calcium 9.8 05/28/23 11:49: POC Glucose 158 H Micro: Microbiology 05/27/23 11:18 Mucosa - Nose SARS-CoV-2, Influenza & RSV (PCR) - Final Influenzae A Rhythm Strip Rhythm Strip: Sinus Rhythm Rate: 90 Ectopy: PVC(s) Physical Exam Const alert and oriented x3 Constitutional Narrative: Pleasant middle-aged female, morbidly obese, appears much improved today, no flushing or diaphoresis noted, laying comfortably in bed, conversing normally, no acute distress. General Appearance: cooperative and comfortable HEENT normocephalic, head/scalp atraumatic, hearing grossly normal bilaterally, nasal mucous membranes and turbinates normal and moist oral mucous membranes Eyes PERRL, EOMs intact bilaterally and conjunctivae normal Neck full ROM, no lymphadenopathy and supple Lymph Lymphatic: no lymphadenopathy noted Chest inspection of chest normal Resp Resp Narrative: Breathing comfortably on 4 L nasal cannula. Mildly decreased breath sounds bilaterally throughout, no wheezing or crackles noted. Cardio regular rate, regular rhythm, no murmurs and peripheral pulses 2+ throughout GI normal to inspection, nondistended, normoactive bowel sounds, soft to palpation,non-tender and non-distended Back/Spine normal ROM Extremity normal to inspection, full ROM and no pedal edema Skin no rashes or lesions noted Neuro moves all extremities and no focal motor deficits Speech: speech normal Psych mental status grossly normal Assessment & Plan Assessment/Plan (1) Hypoxemia: (2) Acute exacerbation of chronic obstructive pulmonary disease (COPD): (3) Influenza A with pneumonia: PLAN: Plan Patient is a 52-year-old female who presented to [facility] ED on 05/27/2023 with worsening cough and shortness of breath. 1. Influenza A infection, COPD exacerbation with acute hypoxia, concern for superimposed bacterial pneumonia Influenza A positive in ED. Recently diagnosed with COPD, PFTs done in 12/2022 showed moderate large airways obstructive ventilatory defect with no significantresponse to bronchodilators. Has not seen pulmonology in the office since then,only on home rescue inhaler with no long-acting inhalers. Not on home O2. Requiring 2 L nasal cannula in ED for hypoxia. Chest x-ray shows focal left lower lobe infiltrate. Febrile to 101.9F, tachycardic, tachypneic, hypertensivein the ED. WBC count 7000. Procalcitonin 0.15. BNP 148. ? Continue to treat with IV Solu-Medrol 40 mg daily, scheduled DuoNebs, Tamiflu. Continue vancomycin and Zosyn for now, blood cultures and sputum culture pending. Wean supplemental oxygen as able. Incentive spirometry ordered. Patient will need O2 ambulatory test prior to discharge. 2. Mild creatinine elevation, improving ? Creatinine 1.29 on admit, baseline creatinine appears to be around 1.0-1.2. Creatinine mildly improved to 1.19 on 05/28. Suspect patient was mildly dry in admission. No need for IV fluids at this time, encouraging p.o. intake. 3. Type 2 diabetes mellitus with hyperglycemia, diabetic neuropathy ? Blood glucose 238 on admit. Last A1c 9.2% in 09/2022. Repeat A1c 7.0% on 05/28. Only on home tirzepatide weekly. Sliding-scale insulin while inpatient. 4. Elevated blood pressure readings ? No history of hypertension, not on any home antihypertensives. BP is elevatedto 170s to 190s systolic and up to 130s diastolic on admit. Suspect secondary to acute stress state. IV hydralazine as needed ordered. Chronic medical conditions: ? Morbid obesity: BMI 51 on admit. Complicates hospital course, care and prognosis. ? CAMMIE: Nonadherent to home CPAP. Nasal cannula at night while inpatient. ? Bipolar disorder: Continue home Wellbutrin. Also receives monthly aripiprazole injection, last injection was about 1 week prior to admission. Hasbeen on this regimen for several years with good stability in patient's mood. ? History of VTE: Bilateral PE diagnosed in 08/2022, unclear etiology. Continue home Eliquis. ? GERD: Continue home PPI. ? History of cigarette smoking DVT prophylaxis: Eliquis CODE STATUS: Full code, verified Expected disposition: Home, 1 to 2 days Total clinical time spent by myself addressing the patient's medical issues, reviewing all the data, and collaborating with patient's care team: 35 minutes. Charges/Coding Visit Charges Inpatient E&M: 33620 Subs Hosp L2 05/28/23 1435 <Electronically signed by Nilson Green DO> Cosigner Signature (if applicable): CC: ~ Signed [facility] Work Phone: [phone]) 370-807402-09-2024 History and physical note Author Nilson [facility] May 27, 2023 6:28pm Note Date/Time May 27, 2023 1 2:51pm [facility] Medical Records Department [address] [place] [address] H&P Exam - Hospitalist 05/27/23 1250 MR#: [id number] Acct: [id number] Name: SARINA DIOP Rep #:[id number] : 1970 52 From: Nilson duval DO PCP: LOUISE Solorio Status:ADM IN Location: [place] [id number]- [id number] HPI - General General Date of Admission: 05/27/23 Date of Service: 05/27/23 Chief Complaint: Nonproductive cough and worsening shortness of breath HPI Narrative SARINA DIOP, is a 52 F who presented to [facility] ED on 05/27/2023 with nonproductive cough and worsening shortness of breath. Patient seen at bedside on the floor shortly after arriving over the ED. Patient was noticeably flushed on exam with some diaphoresis noted. She was sitting at the edge of the bed and conversing normally. She was breathing comfortably on 2 L nasal cannula. Patient states she lives at home by herself, generally has good functional status at baseline. States she started to have a cough with worsening shortness of breath at rest yesterday, and symptoms were worsened thismorning so she came to the ED for further evaluation. Notes that her neighbor was diagnosed with the flu recently. Patient has a history of CAMMIE, has not beencompliant with home CPAP for a long time. She denies a formal diagnosis of COPD but states she has been having workup done with pulmonology recently. Patient was given a breathing treatment in the ED and put on supplemental oxygenwith only mild improvement in her symptoms. States she has had fevers and chills since arriving to the ED this morning. Denies any significant headache or body aches. Otherwise denies any other acute concerns. [facility] Medical History (Updated 05/27/23 @ 14:37 by Elvira Mahoney) Acute respiratory failure Anxiety Bilateral pulmonary embolism BiPAP (biphasic positive airway pressure) dependence Bipolar disorder Bipolar disorder Cellulitis and abscess of neck Chronic back pain Chronic pain Depression Diabetes Kidney stones Bahman's angina Non-healing surgical wound Pulmonary embolism Pulmonary infarction Schizophrenia Smoker Tobacco abuse Upper airway obstruction Home Medications valacyclovir 1 gram tablet 1,000 mg PO DAILY anti virus 08/12/18 [History Last Taken 05/26/23] aripiprazole lauroxil 882 mg/3.2 mL suspension, ext.rel. IM syringe 882 mg IM QMONTH mental health 09/12/18 [History Last Taken 05/18/23] cholecalciferol (vitamin D3) 25 mcg (1,000 unit) tablet 5,000 unit PO DAILY vitamin 07/02/20 [History Last Taken 05/26/23] gabapentin 300 mg capsule 300 mg PO TIDCM nerve pain 07/02/20 [History Last Taken 05/26/23] bupropion HCl 300 mg 24 hr tablet, extended release 300 mg PO DAILY mental health 09/04/22 [History Last Taken 05/26/23] omeprazole 20 mg tablet,delayed release 20 mg PO DAILY reflux 09/04/22 [History Last Taken 05/26/23] acetaminophen 325 mg tablet 650 mg (2 x 325 mg) PO Q4H PRN PRN Fever, pain 1- 01/25 #0 tabs 09/05/22 [Rx Last Taken 05/26/23] albuterol sulfate 90 mcg/actuation aerosol inhaler (Ventolin HFA) 1 - 2 puff inhalation Q4H PRN PRN Wheezing ##1 09/24/22 [Rx Last Taken Unknown] apixaban 5 mg tablet (Eliquis) 5 mg PO Q12H 05/27/23 [History Last Taken Unknown] tirzepatide 5 mg/0.5 mL subcutaneous pen injector (Mounjaro) 5 mg subcut QWEEK 05/27/23 [History Last Taken 05/20/23] Allergy/AdvReac Type Severity Reaction Status Date / Time prednisone AdvReac Other Verified 05/27/23 09:25 Sulfa (Sulfonamide AdvReac Rash Verified 05/27/23 09:25 Antibiotics) Surgical History History of adenoidectomy History of cholecystectomy Social History Smoking Status: Current every day smoker tobacco type: cigarettes Tobacco: How many years used: 30 second hand exposure: Yes alcohol intake: current alcohol intake frequency: holidays/special occasions only substance use type: does not use ROS Constitutional Constitutional: Reports chills, fatigue, fever(s) and malaise; Denies weakness Eyes Eyes: Denies change in vision ENT HEENT: Denies nasal congestion, nasal discharge, post nasal drip, sinus pressureor sore throat Cardiovascular Cardiovascular: Reports dyspnea on exertion; Denies chest pain, edema, lightheadedness, orthopnea or palpitations Respiratory/Chest Respiratory/Chest: Reports cough, shortness of breath at rest and shortness of breath with exertion; Denies productive cough or wheezing Gastrointestinal Gastrointestinal: Denies abdominal pain, constipation, diarrhea, nausea or vomiting Genitourinary Genitourinary: Denies dysuria Musculoskeletal Musculoskeletal: Denies arthralgias or back pain Neurologic Neurologic: Denies dizziness, focal weakness or headache(s) Vital Signs Vital Signs Vital Signs: 05/27/23 09:25 05/27/23 10:04 05/27/23 09:55 Temperature 97.8 F Temperature Source Temporal Pulse Rate 89 82 Respiratory Rate 40 H 24 H Respiratory Effort Respiratory Depth Respiratory Pattern Tachypnea Blood Pressure 180/105 H Blood Pressure Mean 130 Pulse Ox 90 93 Oxygen Delivery Method Room Air Nasal Cannula Oxygen Flow Rate (L/min) 2 05/27/23 11:18 05/27/23 11:19 Temperature Temperature Source Pulse Rate 88 Respiratory Rate 16 Respiratory Effort Short of Breath Respiratory Depth Shallow Respiratory Pattern Tachypnea Blood Pressure 193/93 H Blood Pressure Mean 126 Pulse Ox 95 Oxygen Delivery Method Nasal Cannula Nasal Cannula Oxygen Flow Rate (L/min) 2 2 Weight Weight: 124.7 kg Body Mass Index (BMI) 50.3 Physical Exam Const alert and oriented x3 Constitutional Narrative: Pleasant middle-aged female, morbidly obese, sitting at edge of bed, flushed anddiaphoretic appearing, mildly fatigued appearing, otherwise conversing normally and in no acute distress. General Appearance: cooperative and comfortable HEENT normocephalic, head/scalp atraumatic, hearing grossly normal bilaterally and nasal mucous membranes and turbinates normal HEENT Narrative: Dry mucous membranes. Eyes PERRL, EOMs intact bilaterally and conjunctivae normal Neck full ROM, no lymphadenopathy and supple Lymph Lymphatic: no lymphadenopathy noted Chest inspection of chest normal Resp Resp Narrative: Breathing comfortably on 2 L nasal cannula. Mildly decreased breath sounds bilaterally throughout, no wheezing or crackles noted. Cardio no murmurs and peripheral pulses 2+ throughout Cardio Narrative: Tachycardic, regular rhythm. GI normal to inspection, nondistended, normoactive bowel sounds, soft to palpation,non-tender and non-distended Back/Spine normal ROM Extremity normal to inspection, full ROM and no pedal edema Skin no rashes or lesions noted Neuro moves all extremities and no focal motor deficits Speech: speech normal Psych mental status grossly normal Results Lab / Micro Data 05/27/23 09:18 05/27/23 09:18 Labs: Laboratory Results - last 24 hr 05/27/23 09:18: WBC 7.2, RBC 4.96, Hgb 14.5, Hct 45.7, MCV 92.1, MCH 29.2, MCHC 31.7 L, RDW Std Deviation 51.7 H, RDW Coeff of Serafin 15.4 H, Plt Count 259, MPV 9.7, Immature Gran % (Auto) 1.100 H, Neut % (Auto) 73.6 H, Lymph % (Auto) 11.6 L, Barron % (Auto) 12.6 H, Eos % (Auto) 0.4, Baso % (Auto) 0.7, Absolute Neuts (auto) 5.3, Absolute Lymphs (auto) 0.84, Nucleated RBC % 0, Sodium 138, Potassium 4.0, Chloride 104, Carbon Dioxide 27.0, Anion Gap 7, BUN 14, Creatinine 1.29 H, Estim Creat Clear Calc 64.38, Est GFR (MDRD) Af Amer 56 L, Est GFR (MDRD) Non-Af 46 L, BUN/Creatinine Ratio 10.9, Glucose 238 H, Calcium 9.8, Troponin I High Sens 35, B-Natriuretic Peptide 148.0 H 05/27/23 09:24: POC Glucose 226 H Micro: Microbiology 05/27/23 11:18 Mucosa - Nose SARS-CoV-2, Influenza & RSV (PCR) - Final Influenzae A Rhythm Strip Rhythm Strip: Sinus Rhythm Rate: 90 Ectopy: PVC(s) Imaging Radiology Impression Chest X-Ray 05/27/23 11:20 IMPRESSION: Focal left lower lobe infiltrate. Electronically Signed: Jaya Johnson MD at 12:08 EST Reading Location ID and State: [address] [place] [address] , Service support , Assessment & Plan Assessment/Plan (1) Hypoxemia: (2) Acute exacerbation of chronic obstructive pulmonary disease (COPD): (3) Influenza A with pneumonia: PLAN: Plan Patient is a 52-year-old female who presented to [facility] ED on 05/27/2023 with worsening cough and shortness of breath. 1. Influenza A infection, COPD exacerbation with acute hypoxia, concern for superimposed bacterial pneumonia Influenza A positive in ED. Recently diagnosed with COPD, PFTs done in 12/2022 showed moderate large airways obstructive ventilatory defect with no significantresponse to bronchodilators. Has not seen pulmonology in the office since then,only on home rescue inhaler with no long-acting inhalers. Not on home O2. Requiring 2 L nasal cannula in ED for hypoxia. Chest x-ray shows focal left lower lobe infiltrate. Febrile to 101.9F, tachycardic, tachypneic, hypertensivein the ED. WBC count 7000. Procalcitonin 0.15. BNP 148. ? Admit under inpatient status to PCU. Treat with IV steroids, scheduled DuoNebs, Tamiflu for now. Patient notably reports significant anxiety with francheska with high dose of steroids, will give IV methylprednisolone 40 mg daily and monitor closely. Broad-spectrum antibiotics started on admission, will continue for now. Blood cultures and sputum culture ordered. Wean supplementaloxygen as able. Incentive spirometry ordered. 2. Mild creatinine elevation ? Creatinine 1.29 on admit, baseline creatinine appears to be around 1.0-1.2. Suspect patient was mildly dry on admission. Hold on IV fluids for now given hypoxia, encouraged p.o. intake. Follow-up a.m. BMP. Monitor urine output. 3. Type 2 diabetes mellitus with hyperglycemia, diabetic neuropathy ? Blood glucose 238 on admit. Last A1c 9.2% in 09/2022. Repeat A1c ordered. Only on home tirzepatide weekly. Sliding-scale insulin while inpatient. 4. Elevated blood pressure readings ? No history of hypertension, not on any home antihypertensives. BP is elevatedto 170s to 190s systolic and up to 130s diastolic on admit. Suspect secondary to acute stress state. IV hydralazine as needed ordered. Chronic medical conditions: ? Morbid obesity: BMI 51 on admit. Complicates hospital course, care and prognosis. ? CAMMIE: Nonadherent to home CPAP. Nasal cannula at night while inpatient. ? Bipolar disorder: Continue home Wellbutrin. Also receives monthly aripiprazole injection, last injection was about 1 week prior to admission. Hasbeen on this regimen for several years with good stability in patient's mood. ? History of VTE: Bilateral PE diagnosed in 08/2022, unclear etiology. Continue home Eliquis. ? GERD: Continue home PPI. ? History of cigarette smoking DVT prophylaxis: Eliquis CODE STATUS: Full code, verified Expected disposition: Home, 2 to 3 days Total clinical time spent by myself addressing the patient's medical issues, reviewing all the data, and collaborating with patient's care team: 55 minutes. Charges/Coding Visit Charges Inpatient E&M: 74659 Init Hosp L2 05/27/23 1828 <Electronically signed by Nilson Green DO> Cosigner Signature (if applicable): CC: HOMERO-C Aifa Driscoll; Dr. Nilson Green DO~ Signed [facility] Work Phone: 1(480) 970-599002-09-2024 Discharge summary Author Pipe Liu [facility] May 27, 2023 1:25pm Note Date/Time May 27, 2023 9 :57am [facility] Medical Records Department [address] [place] [address] Emergency Department Summary 05/27/23 MR#: [id number] Acct: [id number] Name: SARINA DIOP Rep #:[id number] : 1970 52 From: Pipe Liu MD PCP: LOUISE Solorio Status:ADM IN Location: [place] [address] HPI History of Present Illness Chief Complaint: Shortness of Breath Informant: patient and EMS Narrative Narrative: Patient started having cough and shortness of breath yesterday worse this morning. EMS put her on oxygen which helped. She has COPD without the need forhome oxygen. No treatments were given she has albuterol at home but did not tryusing it. She states she has had some lung burning, but no chest pain otherwise. She denies any swelling in her legs, orthopnea, fevers, chills, headaches, body aches. I do not feel like I have the flu. No history of heart problems that she knows of. [facility] Medical History Acute respiratory failure Anxiety Bilateral pulmonary embolism Bipolar disorder Cellulitis and abscess of neck Chronic back pain Bahman's angina Non-healing surgical wound Pulmonary infarction Tobacco abuse Upper airway obstruction Home Medications valacyclovir 1 gram tablet 1,000 mg PO DAILY anti virus 08/12/18 [History Last Taken 05/26/23] aripiprazole lauroxil 882 mg/3.2 mL suspension, ext.rel. IM syringe 882 mg IM QMONT mental health 09/12/18 [History Last Taken 05/18/23] cholecalciferol (vitamin D3) 25 mcg (1,000 unit) tablet 5,000 unit PO DAILY vitamin 07/02/20 [History Last Taken 05/26/23] gabapentin 300 mg capsule 300 mg PO TIDCM nerve pain 07/02/20 [History Last Taken 05/26/23] bupropion HCl 300 mg 24 hr tablet, extended release 300 mg PO DAILY mental health 09/04/22 [History Last Taken 05/26/23] omeprazole 20 mg tablet,delayed release 20 mg PO DAILY reflux 09/04/22 [History Last Taken 05/26/23] acetaminophen 325 mg tablet 650 mg (2 x 325 mg) PO Q4H PRN PRN Fever, pain 1- 10 #0 tabs 09/05/22 [Rx Last Taken 05/26/23] albuterol sulfate 90 mcg/actuation aerosol inhaler (Ventolin HFA) 1 - 2 puff inhalation Q4H PRN PRN Wheezing ##1 09/24/22 [Rx Last Taken Unknown] apixaban 5 mg tablet (Eliquis) 5 mg PO Q12H 05/27/23 [History Last Taken Unknown] tirzepatide 5 mg/0.5 mL subcutaneous pen injector (Mounjaro) 5 mg subcut QWEEK 05/27/23 [History Last Taken 05/20/23] Allergy/AdvReac Type Severity Reaction Status Date / Time prednisone AdvReac Other Verified 05/27/23 09:25 Sulfa (Sulfonamide AdvReac Rash Verified 05/27/23 09:25 Antibiotics) Surgical History History of adenoidectomy History of cholecystectomy Social History Smoking Status: Current every day smoker tobacco type: cigarettes Tobacco: How many years used: 30 second hand exposure: Yes alcohol intake: current alcohol intake frequency: holidays/special occasions only substance use type: does not use ROS ROS ED Constitutional Constitutional ED: Denies chills or fever(s) Eyes Eyes: Denies change in vision or diplopia ENT ENT ED: Denies rhinorrhea or sore throat Cardiovascular Cardiovascular: Reports chest pain; Denies palpitations Respiratory/Chest Respiratory/Chest: Reports cough and dyspnea Gastrointestinal Gastrointestinal: Denies abdominal pain, diarrhea, nausea or vomiting Genitourinary Genitourinary ED: Denies dysuria or hematuria Musculoskeletal Musculoskeletal: Denies back pain or neck pain Integumentary Denies abscess or rash Neurologic Neurologic: Denies headache(s), paresthesias or weakness Psychiatric Psychiatric: Denies suicidal ideation or suicidal thoughts EXAM Physical Exam Const Vital Signs: 05/27/23 09:25 05/27/23 10:04 05/27/23 09:55 Temperature 97.8 F Temperature Source Temporal Pulse Rate 89 82 Respiratory Rate 40 H 24 H Respiratory Effort Respiratory Depth Respiratory Pattern Tachypnea Blood Pressure 180/105 H Blood Pressure Mean 130 Pulse Ox 90 93 Oxygen Delivery Method Room Air Nasal Cannula Oxygen Flow Rate (L/min) 2 05/27/23 11:18 05/27/23 11:19 Temperature Temperature Source Pulse Rate 88 Respiratory Rate 16 Respiratory Effort Short of Breath Respiratory Depth Shallow Respiratory Pattern Tachypnea Blood Pressure 193/93 H Blood Pressure Mean 126 Pulse Ox 95 Oxygen Delivery Method Nasal Cannula Nasal Cannula Oxygen Flow Rate (L/min) 2 2 Positive well nourished, well developed and obese General Appearance ED: well developed and NAD Nutritional Appearance: obese HEENT Reports moist mucous membranes normocephalic and atraumatic Eyes PERRL and EOMs intact bilaterally Neck full ROM, supple and no JVD Resp clear to auscultation bilaterally Resp Narrative: A little tachypneic but in no respiratory distress. No accessory muscle use. Diffusely diminished, but symmetrically so, and no adventitious breath sounds. Speaking in full sentences. Cardio regular rate, regular rhythm and no murmurs GI non-tender and non-distended Auscultation: normoactive bowel sounds Palpation: soft Back/Spine no CVA tenderness General Back: other FROM Extremity normal to inspection General Extremety ED: Negative for edema, pulses abnormal or tenderness General Extremity: Negative for edema or pulses abnormal Neuro oriented x3, CN's II-XII intact bilaterally and no sensory deficits noted Sensorium / Orientation: awake and alert Motor Exam: strength 5/5 throughout Skin no rashes or lesions noted and no wounds MDM MDM MDM Narrative Medical decision making narrative: Swabs negative for COVID and RSV positive for influenza A. Duo nebulizer treatment did help some, chest x-ray shows an early left lower lobe infiltrate, 2 views of my interpretation is confirmed by radiology. Labs are noted. BNP isslightly elevated but not significantly so, and her chest x-ray does not appear to show acute CHF. When we ambulated her, she was very out of breath for the next 5 or 10 minutes, and her oxygen saturations went down to 85% with a slow recovery. She is not on home oxygen. She was placed back on nasal cannula, plan is admission. I am adding a procalcitonin and administering Tamiflu. She is not septic and could be potentially discharged to rest at home if she was notso hypoxic. We will give her Solu-Medrol 62.5 mg, she states her reaction to prednisone in the past was francheska related to her bipolar. She has not had IV Solu-Medrol before, she is willing to try it and I will give her a half dose. Lab Data Attestation: I reviewed the patient's lab results. Labs: Laboratory Results - last 24 hr 05/27/23 05/27/23 09:18 09:24 WBC 7.2 RBC 4.96 Hgb 14.5 Hct 45.7 MCV 92.1 MCH 29.2 MCHC 31.7 L RDW Std Deviation 51.7 H RDW Coeff of Serafin 15.4 H Plt Count 259 MPV 9.7 Immature Gran % (Auto) 1.100 H Neut % (Auto) 73.6 H Lymph % (Auto) 11.6 L Barron % (Auto) 12.6 H Eos % (Auto) 0.4 Baso % (Auto) 0.7 Absolute Neuts (auto) 5.3 Absolute Lymphs (auto) 0.84 Nucleated RBC % 0 Sodium 138 Potassium 4.0 Chloride 104 Carbon Dioxide 27.0 Anion Gap 7 BUN 14 Creatinine 1.29 H Estim Creat Clear Calc 64.38 Est GFR (MDRD) Af Amer 56 L Est GFR (MDRD) Non-Af 46 L BUN/Creatinine Ratio 10.9 Glucose 238 H Calcium 9.8 Troponin I High Sens 35 B-Natriuretic Peptide 148.0 H POC Glucose 226 H Radiography Diagnostic Testing: Clinical Impression(s) from Imaging Studies Chest X-Ray 05/27/23 11:20 IMPRESSION: Focal left lower lobe infiltrate. Electronically Signed: Jaya Johnson MD at 12:08 EST , Rhythm Strip Rhythm Strip: Sinus Rhythm Rate: 90 Ectopy: PVC(s) EKG Initial EKG: Attestation: I personally reviewed and interpreted this EKG as follows: Interpretation: Sinus Rhythm, No Acute Injury Pattern, LAFB and Non-Specific ST Changes Comments: PVCs Prior EKG tracings: available for review Prior: Unchanged Management Discussion w/another healthcare provider: Hospitalist Discharge Plan Triage Chief Complaint: Shortness of Breath ED Provider: Pipe Liu Dx/Rx/DC Orders Clinical Impression: Acute respiratory insufficiency, Influenza A with pneumonia, Acute exacerbationof chronic obstructive pulmonary disease (COPD), Hypoxemia Primary Care Provider: Afia Driscoll NP What to do if you have Problems For any increased pain, shortness of breath, bleeding, nausea or vomiting, chestpain, or any unexpected problems, contact your Primary Care Provider. Call [facility] ([phone]) or report to the closest Emergency Room. Call 911 if necessary. 05/27/23 1325 <Electronically signed by Pipe Liu MD> Cosigner Signature (if applicable): CC: METAL PLATER-Juan Francisco Driscoll ~ Signed [facility] Work Phone: 1(264) 531-105009-08-2023 Procedure [facility] 11-26-2022 Procedure [facility]04-28-2023 Hospital Discharge instructions Additional Instructions Please stop smoking as we discussed. Use the inhaler provided today, 1 to 2 puffs every 4-6 hours as needed for cough, wheezing or shortness of breath/chest tightness. No signs of pneumonia. Your blood pressure was elevated upon arrival however it did improve while in the ER. Please follow-up with a primary care doctor for further evaluation. Return if you have a progression or worsening of your symptoms.[facility] Work Phone: 1(357) 734-550510-18-2022 Miscellaneous Notes* Addendum Note - Juliette Ray MD - 02/02/2022 10:31 AM EDTAddended by: JULIETTE RAY on: 02/02/2022 10:31 AM Modules accepted: Orders * Addendum Note - Eleonora Karie Ma - 02/02/2022 9:08 AM EDTAddended by: ELEONORA ORELLANA MA on: 02/02/2022 09:08 AM Modules accepted: Orders documented in this encounterC[facility] History of Present illness Narrative* Juliette Ray MD - 02/02/2022 8:20 AM EDT Adelina is a 51 year old who presents for an annual gynecologic exam without complaints. Doingwell w/ mirena. Has had 5 years. No bleeding. Had some hot flashes last year but resolved. Postmenopausal: uncertain HRT use: No. Last Pap: 04/07/2018 normal HPV: 04/03/2018 negative History of abnormal pap: No Last mammogram: approx 4 years normal History of abnormal mammogram: No Sexually active: intermittently OB History T0 L0 SAB0 IAB0 Ectopic0 Multiple0 Live Births0 B[employer] F[employer] Operator History LMP: 11/02/2011, IUD Age at Menarche: Age at First : Age at Menopause: Binder Folder Operator History Comments: Sexual Activity: Yes; Male Contraception: I.U.D. PAST MEDICAL HISTORY Diagnosis Date Acute hepatitis C without mention of hepatic coma(070.51) Allergic rhinitis, cause unspecified Esophageal reflux 03/29/2006 FIBROMYALGIA 03/12/2008 Herpes simplex without mention of complication cold sores Reflux esophagitis controlled with nexium Schizoaffective disorder, chronic condition (HCC) Dr. Bain Tobacco use disorder 03/29/2006 PAST SURGICAL HISTORY Procedure Laterality Date ADENOIDECTOMY PRIMARY <AGE 12 age 7 CHOLECYSTECTOMY 03/25/2004 Cholecystectomy laparoscopic PAST SURGICAL HISTORY OF lumbar pain injections FAMILY HISTORY Adopted: Yes SOCIAL HISTORY Social History Tobacco Use Smoking status: Every Day Packs/day: 1.00 Years: 20.00 Pack years: 20.00 Types: Cigarettes Smokeless tobacco: Never Vaping Use Vaping Use: Never used Substance Use Topics Alcohol use: No Comment: Heavy drinker- quit in 2003 . Drank mixed drinks daily up to 7 per day. Drug use: No Comment: Hx of marijuana- quit in 2002. REVIEW OF SYSTEMS Abdomen: No abdominal pain, nausea, vomiting, diarrhea, or constipation. No bloating, early satiety, indigestion, or increased flatulence. Bladder: No dysuria, gross hematuria, urinary frequency, urinary urgency, or incontinence Breast: No breast lumps, nipple d/c, overlying skin changes, redness or skin retraction Allergies and current medication updated:Yes EXAM: BP 144/96 Ht 5' 1.75 (1.57m) Wt 285 lb (129.3kg) LMP 11/02/2011 BMI 52.58 kg/(m^2). GENERAL: pleasant, female in no apparent distress HEENT: Normocephalic, atraumatic, mucus membranes moist, and no lesions NECK: Supple, full range of motion, no adenopathy, and thyroid normal DERMATOLOGY: Normal, without lesions, non-icteric, and non-hirsute BREAST: soft, non-tender, symmetric, no dominant mass, normal nipple-areolar complex, no lymphadenopathy, and no nipple discharge CHEST: Normal inspiratory effort ABDOMEN: soft, non-tender, and no masses PELVIC: external genitalia normal, normal Bartholin's glands, urethra, [place]'s glands, no vulvar lesions, no cervical lesions, good vaginal support, physiologic discharge present, normal appearing perineal body and perianal region BIMANUAL: uterus mobile, no tenderness, limited by habitus RECTOVAGINAL: deferred. NEURO: alert and oriented x3,exam grossly non-focal EXTREMITIES: normal ASSESSMENT/PLAN: 1) Health maintenance: Pap done with HPV. Mammogram ordered Colon cancer screening: recommended and will consider when establishes w/ new PCP 2) Follow up one year or sooner as needed elects for GC/CT/Trich and declines other STI testing Juliette Ray MD documented in this encounterC[facility]08-16-2012 History of Past illness Narrative* Problem Noted Date Resolved Date Frequency of urination 12/02/2011 2 PMDD (premenstrual dysphoric disorder) 2 02/02/2022 Tobacco abuse 05/13/2010 11/26/2011 Routine General Medical Exam ination at a Health Care Facility 09/24/2008 11/26/2011 Overview: 03/12/08 -- transfer from Dr. Ybarra/Viki to [facility] 09/24/08 -- transfer from [facility] to [facility] Routine Gynecological Examination 09/24/2008 11/26/2011 [facility] Other specified disorder of skin 05/17/2007 03/12/2008 Other acne 11/28/2006 09/24/2008 Rosacea 11/28/2006 09/24/2008 Scar condition and fibrosis of skin 11/28/2006 09/24/2008 TELANG///CAPILLARY DIS NEC/NOS 11/28/2006 0 09/24/2008 Reflux esophagitis 03/12/2008 Acute hepatitis C without mention of hepatic com a(070.51) 03/12/2008 Herpes simplex without mention of complication 02/02/2022 Overview: cold sores Allergic rhinitis, cause unspecified 11/26/2011 documented as of this encounter (statuses as of 02/02/2022) [facility] HospitalConsult note Author Shayla Mckeon [facility] May 30, 2023 2:20pm Note Date/Time May 30, 2023 2:20pm [facility] Medical Records Department [address] [place] [address] Counseling Note - Pharmacy 05/30/23 1419 MR#: [id number] Acct: [id number] Name: SARINA DIOP Rep #:[id number] : 1970 52 From: Shayla Mckeon PCP: LOUISE Solorio Status:ADM IN Y Location: [facility] [id number] Pharmacy [facility] Service has performed discharge medication reconciliation and counseling for this patient. Counseled via telephone due to droplet precautions. 1. OSELTAMIVIR 75MG PO BID X 2 DAYS 2. PREDNISONE 40MG PO DAILY X 2 DAYS The patient's discharge medication list was reviewed for discrepancies and discrepancies were resolved. The patient was counseled on the following discharge medications and changes in medications for homegoing were reviewed. The Reason for Use, instructions for use, and potential side effects were reviewed for all new medications. The patient's questions regarding all of their medications were answered. The patient was able to verbally demonstrate an understanding of their dischargemedications. Medications at Discharge Home Medications valacyclovir 1 gram tablet 1,000 mg PO DAILY anti virus 08/12/18 aripiprazole lauroxil 882 mg/3.2 mL suspension, ext.rel. IM syringe 882 mg IM QMONTH mental health 09/12/18 cholecalciferol (vitamin D3) 25 mcg (1,000 unit) tablet 5,000 unit PO DAILY vitamin 07/02/20 gabapentin 300 mg capsule 300 mg PO TIDCM nerve pain 07/02/20 bupropion HCl 300 mg 24 hr tablet, extended release 300 mg PO DAILY mental health 09/04/22 omeprazole 20 mg tablet,delayed release 20 mg PO DAILY reflux 09/04/22 acetaminophen 325 mg tablet 650 mg (2 x 325 mg) PO Q4H PRN PRN Fever, pain 1- 01/25 #0 tabs 09/05/22 albuterol sulfate 90 mcg/actuation aerosol inhaler (Ventolin HFA) 1 - 2 puff inhalation Q4H PRN PRN Wheezing ##1 09/24/22 apixaban 5 mg tablet (Eliquis) 5 mg PO Q12H 05/27/23 tirzepatide 5 mg/0.5 mL subcutaneous pen injector (Mounjaro) 5 mg subcut QWEEK 05/27/23 oseltamivir 75 mg capsule (Tamiflu) 75 mg PO BID 2 days #4 caps 05/30/23 prednisone 20 mg tablet 40 mg (2 x 20 mg) PO DAILY 2 days #4 tabs 05/30/23 05/30/23 1420 <Electronically signed by Shayla Mckeon> Date _ Shayla Mckeon Cosigner Signature (if applicable): Date CC: ~ Signed [facility] Work Phone: Discharge summary Author [facility] August 02, 2023 1:38pm Note Date/Time August 02, 2023 1:2 5pm [facility] Medical Records Department [address] [place] [address] Discharge Summary 08/02/23 1321 MR#: [id number] Acct: [id number] Name: SARINA DIOP Rep #:[id number] : 1970 52 From: Chino Ford DO PCP: LOUISE Solorio Status:AD[facility] IN [facility] Prov[facility] Date of Admission: 07/29/23 Primary Care Physician: LOUISE Solorio Reason For Visit: PNEUMONIA AND UTI Diagnosis Discharge Diagnosis (1) Acidosis, lactic: Status: Resolved Code(s): E87.20 - Acidosis, unspecified (2) Abnormal chest x-ray: Status: Acute Code(s): R93.89 - Abnormal findings on diagnostic imaging of other specified body structures (3) Abnormal finding on urinalysis: Status: Acute Code(s): R82.90 - Unspecified abnormal findings in urine (4) Leukocytosis: Status: Acute Code(s): D72.829 - Elevated white blood cell count, unspecified (5) Dyspnea: Status: Acute Code(s): R06.00 - Dyspnea, unspecified (6) Elevated serum creatinine: Status: Acute Code(s): R79.89 - Other specified abnormal findings of blood chemistry (7) E. coli urinary tract infection: Status: Acute Code(s): N39.0 - Urinary tract infection, site not specified; B96.20 - Unspecified Escherichia coli [E. coli] as the cause of diseases classified elsewhere Plan E. coli UTI * -Culture positive for E. coli with pansensitive organism- * Discharge with nitrofurantoin. Abnormal chest x-ray/shortness of breath/acute exacerbation of COPD * -Patient remains on her baseline oxygen at 2 L-Continue to monitor and titrate up if need be * -Chest x-ray reports infiltrates versus atelectasis * -Continue Solu-Medrol for now with history of COPD--> decreased to daily Solu- Medrol. Change to prednisone. * -Strep pneumo and Legionella are negative * -Patient not able to produce a sputum for culture * -Discontinue azithromycin and continue ceftriaxone * -Continue Mucinex 1200 twice daily * -Continue incentive spirometry-Continue Acapella * -Continue aggressive pulmonary toilet with scheduled and as needed nebulizers * -COVID/flu/RSV negative. Respiratory viral panel was unremarkable * -Needs follow-up with pulmonary medicine as an outpatient for PFTs and a 6- minute walk test * -Highly recommend tobacco cessation Acute HFpEF * -Echo shows an EF 65% with PASP of 60 mmHg. * -Discharge with furosmide. * -Fluid and sodium restrict diet * -Check daily weights RV thrombus * already anticoagulated. * DW Dr. Xie 07/31, no plan for BHARGAV. * Follow up with cardiology for follow up 2d echo Pulmonary artery hypertension * unclear type, certainly many variables: PE, untreated CAMMIE, versus other. * follow up with pulmonary for recommendations for CAMMIE as she has been unable to tolerate CPAP. (inspire device?) Chronic conditions * Chronic hypoxic respiratory failure secondary to COPD/history of multiple PE- At baseline wears 2 L-Been currently on baseline oxygen-Encouraged outpatient pulmonary medicine with follow-up * History of recurrent pulmonary emboli-Continue home Eliquis * Diabetes-Patient is on Mounjaro as an outpatient-Blood sugars are markedly elevated likely related to steroid use-Add Lantus 15 units daily-Add SSI fnny-nqts-Nvmy wean steroids some and this should help control her xdumts-Eurv-Lvdnp as ordered-Had recent hemoglobin A1c on 05/28/2023 at which time it was 7.0 * GERD-Continue home omeprazole * Diabetic neuropathy-Continue home gabapentin * Schizophrenia/depression-Patient gets monthly injectable aripiprazole with la st dose being 07/28/2023-Continue home Wellbutrin * Morbid obesity-BMI is 49.6-Recommend weight loss-Complicates treatment, prognosis, outcomes * History of tobacco abuse-Still smoking-Patient denies need of nicotine patch DVT prophylaxis -Continue home Eliquis CODE STATUS -DNR CCA with no intubation DC home. Medications at Discharge Home Medications valacyclovir 1 gram tablet 1,000 mg PO DAILY anti virus 08/12/18 aripiprazole lauroxil 882 mg/3.2 mL suspension, ext.rel. IM syringe 882 mg IM [facility] 09/12/18 cholecalciferol (vitamin D3) 25 mcg (1,000 unit) tablet 5,000 unit PO DAILY vitamin 07/02/20 gabapentin 300 mg capsule 300 mg PO TIDCM nerve pain 07/02/20 bupropion HCl 300 mg 24 hr tablet, extended release 300 mg PO DAILY mental health 09/04/22 omeprazole 20 mg tablet,delayed release 20 mg PO DAILY reflux 09/04/22 acetaminophen 325 mg tablet 650 mg (2 x 325 mg) PO Q4H PRN PRN Fever, pain - 01/25 #0 tabs 09/05/22 albuterol sulfate 90 mcg/actuation aerosol inhaler (Ventolin HFA) 1 - 2 puff inhalation Q4H PRN PRN Wheezing ##1 09/24/22 apixaban 5 mg tablet (Eliquis) 5 mg PO Q12H blood thinner 05/27/23 tirzepatide 5 mg/0.5 mL subcutaneous pen injector (Mounjaro) 5 mg subcut QWEEK for diabetes 05/27/23 diabetic supplies, Gobblercellan. #1 ea 08/02/23 furosemide 40 mg tablet 40 mg PO DAILY #30 tabs 08/02/23 insulin glargine-yfgn 100 unit/mL (3 mL) subcutaneous pen 15 unit (0.15 mL) subcut DAILY #15 mL 08/02/23 insulin lispro 100 unit/mL subcutaneous pen (Humalog KwikPen (U-100) Insulin) 10unit subcut TIDAC #15 mL 08/02/23 losartan 25 mg tablet 25 mg PO DAILY #30 tabs 08/02/23 nitrofurantoin monohydrate/macrocrystals 100 mg capsule (Macrobid) 100 mg PO Q12H 5 days #10 caps 08/02/23 prednisone 20 mg tablet 40 mg (2 x 20 mg) PO DAILY #10 tabs 08/02/23 Hospital Course Operations None Procedures 2-D Echocardiogram Summary of Care Provided Minutes Spent on Discharge: 45 Weight / BMI Weight Weight: 156.4 kg Body Mass Index (BMI) 63.0 ABG / Lab / Microbiology Data 08/01/23 05:11 08/01/23 05:11 Laboratory: Laboratory Results - last 24 hr 08/01/23 16:18: POC Glucose 382 H 08/02/23 06:33: POC Glucose 275 H 08/02/23 11:29: POC Glucose 276 H Microbiology: Microbiology 07/29/23 16:30 Blood Culture (Wb) - Anticubital Right Blood Culture - Preliminary No growth in 48 hours. 07/29/23 17:51 Urine, Clean Catch Urine Culture - Final Presumptive E. coli 07/30/23 19:50 Mucosa - Nasopharyngeal Respiratory Panel (PCR) - Final 07/30/23 14:58 Urine, Clean Catch Legionella Antigen - Final 07/30/23 14:58 Urine, Clean Catch Streptococcus pneumoniae Antigen (M - Final 07/29/23 16:30 Mucosa - Nose SARS-CoV-2, Influenza & RSV (PCR) - Final D/C Instructions Discharge Diet: 2000 Calorie Control Diet, 2000 mg Sodium Diet and - (fluid restict 1.5 liters day.) Meaningful Use Info Meaningful Use Diagnoses (Choose all that apply): CHF CHF PADMINI/ARB ordered at discharge?: Yes Documented LVEF (%): 65 Discharge Plan Admission Admit Date/Time: 07/29/23 18:37 Primary Reason for Your Visit: UTI. heart failure. Attending Provider: Chino Ford Primary Care Provider: Afia Driscoll NP Consulting Providers: Sergey Colon Kathryn Instructions Patient Instructions: HF Goals for Management, Heart Failure Meds, Heart Failure Flare Up Signs, Heart Failure: Tracking Your Weight, Heart Failure: Being Active, Heart Failure Make Changes Diet, Heart Failure: Know Your Baselines, Heart Failure: Travel Concerns Additional Instructions / Restrictions: You had a urinary tract fraction which she will complete antibiotics with Macrobid. Your respiratory status was more likely due to component of volume overload commonly known as congestive heart failure. Your heart function is normal but this will need to be addressed with taking a diuretic, known as Lasix, restricting your fluid intake to 1.5 L of fluid per day, limiting your sodium intake to no more than 2 g of salt per day and checking her weight daily. Please notify your physician if you put on more than 2 pounds in 1 day or 3 pounds in 1 week. Complicating this is he also have pulmonary artery hypertension. This is different than standard hypertension is involved with circulation of your lungs. The treatment for pulmonary artery hypertension is treating the underlying causes, which in your case, may be sleep apnea and your history of blood clots. Please continue taking your Eliquis. I do recommend that you follow-up with pulmonary to see what other options would be available for your sleep apnea willnot be going back on CPAP or utilizing something else such as the Inspire device. Your diabetes has been uncontrolled since you have been here. This is partly dueto the steroids, but primarily it has been uncontrolled. You will be started on long-acting insulin (Lantus, insulin glargine) and short-acting insulin with meals. Discharge Orders/Prescriptions Prescriptions: New insulin glargine-yfgn 100 unit/mL (3 mL) Insulin Pen 15 unit subcut DAILY Qty: 15 0RF insulin lispro [Humalog KwikPen Insulin] 100 unit/mL Insulin Pen 10 unit subcut TIDAC Qty: 15 0RF Protocol: 5. Sliding Scale Insulin High Dosing Condition: 150-209 mg/dl = 3 units Condition: 210-259 mg/dl = 6 units Condition: 260-324 mg/dl = 9 units Condition: 325-374 mg/dl = 12 units Condition: 375-409 mg/dl = 14 units Condition: 410-449 mg/dl = 16 units Condition: Greater than 449 call physician Protocol Text: - Use for Total Daily Dose of Insulin 81-120 units - Very insulin resistant or septic patients HIGH DOSING ALGORITHM losartan 25 mg Tablet 25 mg PO DAILY Qty: 30 0RF furosemide 40 mg tablet 40 mg PO DAILY Qty: 30 0RF (DME) diabetic supplies, miscellan. Misc See Rx Instructions .Route Qty: 1 0RF Rx Instructions: As directed prednisone 20 mg tablet 40 mg PO DAILY Qty: 10 0RF nitrofurantoin monohyd/m-cryst [Macrobid] 100 mg capsule 100 mg PO Q12H 5 Days Qty: 10 0RF Rx Instructions: must administer with a meal/food Continued valacyclovir 1,000 MG tablet 1,000 mg PO DAILY aripiprazole lauroxil 882 MG/3.2 ML suspension,extended rel syring 882 mg IM QMONTH gabapentin 300 MG capsule 300 mg PO TIDCM cholecalciferol (vitamin D3) 1,000 UNIT tablet 5,000 unit PO DAILY omeprazole 20 mg Tablet,Delayed Release (Dr/Ec) 20 mg PO DAILY bupropion HCl 300 mg tablet extended release 24 hr 300 mg PO DAILY acetaminophen 325 mg Tablet 650 mg PO Q4H PRN PRN (Reason: Fever, pain 1-01/25) Qty: 0 0RF albuterol sulfate [Ventolin HFA] 90 mcg/actuation HFA aerosol inhaler 1 - 2 puff inhalation Q4H PRN PRN (Reason: Wheezing) Qty: 1 0RF Eliquis 5 mg tablet 5 mg PO Q12H Mounjaro 5 mg/0.5 mL pen injector 5 mg subcut QWEEK Referrals / Follow Up: [facility] [Provider Group] - Within 3 Months [facility] [Provider Group] - Within 1 Month Afia Driscoll NP, [employer] [Primary Care Provider] - Within 2 Weeks Disposition Disposition (needs filled in before D/C Order can be placed): Home, Self Care Charges/Coding Visit Charges Inpatient E&M: 02215 Disch Hosp >30min 08/02/23 1338 <Electronically signed by Chino Ford DO> Cosigner Signature (if applicable): CC: LOUISE Driscoll; Dr. Chino Ford DO~ Signed [facility] Work Phone: Evaluation note* Diagnosis Encounter for gynecological examination (general) (routine) without abnormal findings- Primary Pap smear for cervical cancer screening Screening for malignant neoplasm of the cervix Encounter for screening mammogram for breast cancer Obesity, Class III, BMI >= 40 Morbid obesity Screen for STD (sexually transmitted disease) Screening examination for venereal disease documented [facility] this [facility] noteNo assessment information availableWMer[facility] Work Phone: Evaluation note* Diagnosis Onset Date Resolution Status Hypersomnia acute Morbid obesity with BMI of 50.0-59.9, adult acute Bipolar disorder chronic [facility] Work Phone: Evaluation note* Diagnosis Onset Date Resolution Status Acute respiratory insufficiency acute Hypoxemia acute Influenza A with pneumonia a cute Acute exacerbation of chroni c obstructive pulmonary disease (COPD) chronic [facility] Work Phone: Evaluation note* Diagnosis Onset Date Resolution Status Hypoxemia acute Influenza A with pneumonia a cute Acute exacerbation of chroni c obstructive pulmonary disease (COPD) chronic Acute respiratory insufficiency resolved Acidosis, lactic acute Dyspnea acute Leukocytosis acute Pneumonia acute UTI (urinary tract infection) acute [facility] Work Phone: Evaluation note* Diagnosis Onset Date Resolution Status Influenza A with pneumonia a cute Acute exacerbation of chroni c obstructive pulmonary disease (COPD) chronic Acute respiratory insufficiency resolved Abnormal chest x-ray acute Abnormal finding on urinalysis acute Dyspnea acute E. coli urinary tract infection acute Elevated serum creatinine ac randell Leukocytosis acute Acidosis, lactic resolved [facility] Work Phone: Evaluation note* Diagnosis Encounter for gynecological examination (general) (routine) without abnormal findings- Primary Encounter for screening mammogram for breast cancer documented in this encounter [facility] note* Diagnosis Encounter for screening mammogram for breast cancer documented in this encounter [facility] Discharge instructionsAdditional Instructions Keep your appointment to have colonoscopy. You may use MiraLAX to keep stools soft daily.[facility] Work Phone: Reason for referral (narrative)* Diagnostic Procedure Only (Routine) - Pending Review Specialty Diagnoses / Procedures Referred By Contac t Referred To Contact [facility] Diagnoses Encounter for gynecological examination (general) (routine) without abnormal findings Encounter for screening mammogram for breast cancer Procedures LAITH SCREENING SCREENING MAMMOGRAPHY BI 2-VIEW BREAST INC CAD Juliette Ray MD [address] [place] [address] [place] [address] Referral ID Status Reason Start Date Expiration Date Visits Requested Visits Authorized [id number] Pending Review Auto-Generat ed Referral 2 03/04/2023 1 1 [facility] for referral (narrative)* Diagnostic Procedure Only (Routine) - Authorized Specialty Diagnoses / Procedures Referred By Contac t Referred To Contact [facility] Diagnoses Encounter for screening mammogram for breast cancer Procedures LAITH SCREENING W BAO SCREENING DIGITAL BREAST TOMOSYNTHESIS BI SCREENING MAMMOGRAPHY BI 2-VIEW BREAST INC CAD Sarina Narvaez MD [address] [place] [address] [place] [address] Referral ID Status Reason Start Date Expiration Date Visits Requested Visits Authorized [id number] Authorized Auto-Generat ed Referral 02/20/2024 03/21/2025 1 1 [facility] ([facility]arrative)No reason for referral information availableWMercy Health [facility] Work Phone: Reason for visit Narrative* Diagnostic Procedure Only (Routine) - Closed Specialty Diagnoses / Procedures Referred By Contac t Referred To Contact [facility] Diagnoses Encounter for screening mammogram for breast cancer Procedures LAITH SCREENING W BAO SCREENING DIGITAL BREAST TOMOSYNTHESIS BI SCREENING MAMMOGRAPHY BI 2-VIEW BREAST INC CAD Sarina Narvaez MD [address] [place] [address] [facility] [address] [place] [address] Referral ID Status Reason Start Date Expiration Date V isits Requested Visits Authorized [id number] Closed Auto-Generate d Referral 02/20/2024 03/21/2025 1 1 [facility] Summary Purpose Family History No Family History Records Found Relationship Condition Age at Onset Recorded Date/T hamida Unknown Family History?No pe rtinent history Unknown December 09, 2016 10:45am Family History?No pe rtinent history Unknown August 13, 2018 5:12am Relationship Condition Age at Onset Recorded Date/T hamida Unknown Family History?No pe rtinent history Unknown December 09, 2016 9:45am Family History?No pe rtinent history Unknown August 13, 2018 4:12am Relationship Condition Age at Onset Recorded Date/T hamida Not Specified Adopted Unknown Advance Directives No Advanced Directives Records Found Advance Directive Response Recorded Date/ Time Living Will No August 13, 2022 11:09am Power of Milieu Technician No August 13 11:09am Advance Directive Response Recorded Date/ Time Living Will No September 24, 2022 2 :21pm Power of Milieu Technician No September 24, 2022 2:21pm Advance Directive Response Recorded Date/ Time Living Will No May 27 2:33pm Power of Milieu Technician No May 27, 2023 2:33pm Advance Directive Response Recorded Date/ Time Living Will No July 29, 2023 4:43pm Power of Milieu Technician No July 28 4:43pm Advance Directive Response Recorded Date/ Time Living Will No July 29, 2023 7:37pm Power of Milieu Technician No July 28 7:37pm Advance Directive Response Recorded Date/ Time Living Will No April 03 1:18pm Do you have a Healthcare Power of Milieu Technician? No April 03, 2024 1:18pm Advance Directive Response Recorded Date/ Time Do you have a Healthcare Power of Milieu Technician? Yes November 02, 2024 4:58pm Chief Complaint and Reason for Visit Chief Complaint SOB Chief Complaint SOB PE WITH HEMOPTYSIS PE WITH HEMOPTYSIS PE WITH HEMOPTYSIS SOB COPD HYPERSOMNIA Reason for Visit Hypersomnia Morbid obesity with BMI of 50.0-59.9, adult Bipolar disorder Chief Complaint SOB PE WITH HEMOPTYSIS PE WITH HEMOPTYSIS PE WITH HEMOPTYSIS SOB COPD HYPERSOMNIA Obstructive sleep apnea (adult) (pediatric) Reason for Visit Hypersomnia Morbid obesity with BMI of 50.0-59.9, adult Bipolar disorder Chief Complaint SOB PE WITH HEMOPTYSIS PE WITH HEMOPTYSIS PE WITH HEMOPTYSIS SOB COPD HYPERSOMNIA Obstructive sleep apnea (adult) (pediatric) WRIGHT,BIPAP SETUP *DEVICE TAGGED WRIGHT,BIPAP SETUP *DEVICE TAGGED Reason for Visit Hypersomnia Morbid obesity with BMI of 50.0-59.9, adult Bipolar disorder Chief Complaint PE WITH HEMOPTYSIS PE WITH HEMOPTYSIS PE WITH HEMOPTYSIS SOB COPD HYPERSOMNIA Obstructive sleep apnea (adult) (pediatric) WRIGHT,BIPAP SETUP *DEVICE TAGGED WRIGHT,BIPAP SETUP *DEVICE TAGGED DYSPNEA DYSPNEA Reason for Visit Hypersomnia Morbid obesity with BMI of 50.0-59.9, adult Bipolar disorder Chief Complaint INFLUENZA A INFECTIO N, COPD EXACERBATION INFLUENZA A INFECTION, COPD EXACERBATION INFLUENZA A INFECTION, COPD EXACERBATION Reason for Visit Acute respiratory in sufficiency Hypoxemia Influenza A with pneumonia Acute exacerbation of chronic obstructive pulmonary disease (COPD) Chief Complaint INFLUENZA A INFECTIO N, COPD EXACERBATION INFLUENZA A INFECTION, COPD EXACERBATION INFLUENZA A INFECTION, COPD EXACERBATION INFLUENZA A INFECTION, COPD EXACERBATION PNEUMONIA AND UTI Reason for Visit Hypoxemia Influenza A with pneumonia Acute exacerbation of chronic obstructive pulmonary disease (COPD) Acute respiratory insufficiency Acidosis, lactic Dyspnea Leukocytosis Pneumonia UTI (urinary tract infection) Chief Complaint INFLUENZA A INFECTIO N, COPD EXACERBATION INFLUENZA A INFECTION, COPD EXACERBATION INFLUENZA A INFECTION, COPD EXACERBATION INFLUENZA A INFECTION, COPD EXACERBATION PNEUMONIA AND UTI PNEUMONIA AND UTI PNEUMONIA AND UTI PNEUMONIA AND UTI PNEUMONIA AND UTI PNEUMONIA AND UTI Reason for Visit Influenza A with pne ángela Acute exacerbation of chronic obstructive pulmonary disease (COPD) Acute respiratory insufficiency Abnormal chest x-ray Abnormal finding on urinalysis Dyspnea E. coli urinary tract infection Elevated serum creatinine Leukocytosis Acidosis, lactic Chief Complaint Admit Date Test Result March 14, 2024 8:11am R00.2 - Palpitations March 16, 2024 6:26am 30 DAY MONITOR March 16, 2024 9:00am CA March 27, 2024 8:34am CAMMIE, PALP March 29, 2024 11:26am DISCUSS PET SCAN April 03, 2024 10:56am CHEST PAIN April 03, 2024 12:01pm CAMMIE, PALP April 10, 2024 11:37am INT LABS May 14, 2024 8 :47am Pre colon May 25, 2024 1 0:36am Other nonspecific abnormal finding of licha ng field July 02, 2024 1:00pm Reason for Visit Admit Date Moderate chronic obstructive pulmonary d isease March 14, 2024 8:11am Morbid obesity March 14, 2024 8:11am Multiple lung nodules March 14 8:11am CAMMIE (obstructive sleep apnea) February 172023 8:11am Palpitations March 14, 2024 8:11am Schizophrenia March 14, 2024 8:11am Smoking greater than 20 pack years Novem 2023 8:11am Hypertension April 03, 2024 10:56am Moderate chronic obstructive pulmonary d isease April 03, 2024 10:56am Multiple lung nodules April 03 10:56am CAMMIE (obstructive sleep apnea) March 182023 10:56am Schizophrenia April 03, 2024 10:56am Smoking greater than 20 pack years Decem 2023 10:56am Constipation May 25, 2024 1 0:36am Chief Complaint Admit Date INT LABS May 14, 2024 8 :47am Pre colon May 25, 2024 1 0:36am Other nonspecific abnormal finding of licha ng field July 02, 2024 1:00pm Diabetes July 23, 2024 12:5 7pm 4 M FU July 31, 2024 8:1 9am INT LABS August 10, 2024 10: 22am EST NEW PT - [facility] August 13, 2024 12:52pm 6 M FU August 17, 2024 10:59a m 4 wk fu September 05, 2024 9:07a m Reason for Visit Admit Date Constipation May 25, 2024 1 0:36am CKD (chronic kidney disease) July 23, 2024 12:57pm Diabetes July 23, 2024 12:5 7pm Hypertension July 23, 2024 12:5 7pm Neuropathy July 23, 2024 12:5 7pm Obesity July 23, 2024 12:5 7pm Hypercalcemia July 23, 2024 12:5 7pm Moderate chronic obstructive pulmonary d isease July 31, 2024 8:19am Multiple lung nodules July 31, 2024 8 :19am CAMMIE (obstructive sleep apnea) July 8:19am Schizophrenia July 31, 2024 8:1 9am Smoking greater than 20 pack years July 31, 2024 8:19am Bipolar disorder August 13, 2024 12: 52pm Pulmonary embolism August 13, 2024 12: 52pm CKD (chronic kidney disease) August 13, 2024 12:52pm Diabetes August 13, 2024 12: 52pm Moderate chronic obstructive pulmonary d isease August 13, 2024 12:52pm Multiple lung nodules August 13, 2024 1 2:52pm CAMMIE (obstructive sleep apnea) July 12:52pm Schizophrenia August 13, 2024 12: 52pm Immunization declined August 13, 2024 1 2:52pm Smokes cigarettes August 13, 2024 12: 52pm Establishing care with new doctorruba for August 13, 2024 12:52pm Essential hypertension August 13, 2024 12:52pm Pulmonary embolism August 17, 2024 10:59a m Hypertension August 17, 2024 10:59a m SOB (shortness of breath) August 17, 2024 10:59am Palpitations August 17, 2024 10:59a m Moderate chronic obstructive pulmonary d isease September 05, 2024 9:07am Multiple lung nodules September 05, 2024 9:0 7am CAMMIE (obstructive sleep apnea) September 05, 2024 9:07am Schizophrenia September 05, 2024 9:07a m Smoking greater than 20 pack years August 172024 9:07am Chief Complaint Admit Date Other nonspecific abnormal finding of licha ng field July 02, 2024 1:00pm Diabetes July 23, 2024 12:5 7pm 4 M FU July 31, 2024 8:1 9am INT LABS August 10, 2024 10: 22am EST NEW PT - [facility] August 13, 2024 12:52pm 6 M FU August 17, 2024 10:59a m 4 wk fu September 05, 2024 9:07a m ASSESSMENT FROM fallSeptember 24, 2024 9:53 am Reason for Visit Admit Date CKD (chronic kidney disease) July 23, 2024 12:57pm Diabetes July 23, 2024 12:5 7pm Hypertension July 23, 2024 12:5 7pm Neuropathy July 23, 2024 12:5 7pm Obesity July 23, 2024 12:5 7pm Hypercalcemia July 23, 2024 12:5 7pm Moderate chronic obstructive pulmonary d isease July 31, 2024 8:19am Multiple lung nodules July 31, 2024 8 :19am CAMMIE (obstructive sleep apnea) July 8:19am Schizophrenia July 31, 2024 8:1 9am Smoking greater than 20 pack years July 31, 2024 8:19am Bipolar disorder August 13, 2024 12: 52pm Pulmonary embolism August 13, 2024 12: 52pm CKD (chronic kidney disease) August 13, 2024 12:52pm Diabetes August 13, 2024 12: 52pm Moderate chronic obstructive pulmonary d isease August 13, 2024 12:52pm Multiple lung nodules August 13, 2024 1 2:52pm CAMMIE (obstructive sleep apnea) July 12:52pm Schizophrenia August 13, 2024 12: 52pm Immunization declined August 13, 2024 1 2:52pm Smokes cigarettes August 13, 2024 12: 52pm Establishing care with new doctorruba for August 13, 2024 12:52pm Essential hypertension August 13, 2024 12:52pm Pulmonary embolism August 17, 2024 10:59a m Hypertension August 17, 2024 10:59a m SOB (shortness of breath) August 17, 2024 10:59am Palpitations August 17, 2024 10:59a m Bilateral pulmonary embolism September 05, 2 025 9:07am Pulmonary hypertension September 05, 2024 9: 07am Moderate chronic obstructive pulmonary d isease September 05, 2024 9:07am Multiple lung nodules September 05, 2024 9:0 7am CAMMIE (obstructive sleep apnea) September 05, 2024 9:07am Schizophrenia September 05, 2024 9:07a m Smoking greater than 20 pack years August 172024 9:07am Bilateral ankle pain September 24, 2024 9:53 am Pain in both knees September 24, 2024 9:53a m Fall September 24, 2024 9:53a m Chief Complaint Admit Date Other nonspecific abnormal finding of licha ng field July 02, 2024 1:00pm Diabetes July 23, 2024 12:5 7pm 4 M FU July 31, 2024 8:1 9am INT LABS August 10, 2024 10: 22am EST NEW PT - [place] PT August 13, 2024 12:52pm 6 M FU August 17, 2024 10:59a m 4 wk fu September 05, 2024 9:07a m ASSESSMENT FROM fallSeptember 24, 2024 9:53 am fu October 23, 2024 9:52a m Reason for Visit Admit Date CKD (chronic kidney disease) July 23, 2024 12:57pm Diabetes July 23, 2024 12:5 7pm Hypertension July 23, 2024 12:5 7pm Neuropathy July 23, 2024 12:5 7pm Obesity July 23, 2024 12:5 7pm Hypercalcemia July 23, 2024 12:5 7pm Moderate chronic obstructive pulmonary d isease July 31, 2024 8:19am Multiple lung nodules July 31, 2024 8 :19am CAMMIE (obstructive sleep apnea) July 8:19am Schizophrenia July 31, 2024 8:1 9am Smoking greater than 20 pack years July 31, 2024 8:19am Bipolar disorder August 13, 2024 12: 52pm Pulmonary embolism August 13, 2024 12: 52pm CKD (chronic kidney disease) August 13, 2024 12:52pm Diabetes August 13, 2024 12: 52pm Moderate chronic obstructive pulmonary d isease August 13, 2024 12:52pm Multiple lung nodules August 13, 2024 1 2:52pm CAMMIE (obstructive sleep apnea) July 12:52pm Schizophrenia August 13, 2024 12: 52pm Immunization declined August 13, 2024 1 2:52pm Smokes cigarettes August 13, 2024 12: 52pm Establishing care with new doctor, ruba álvarez for August 13, 2024 12:52pm Essential hypertension August 13, 2024 12:52pm Pulmonary embolism August 17, 2024 10:59a m Hypertension August 17, 2024 10:59a m SOB (shortness of breath) August 17, 2024 10:59am Palpitations August 17, 2024 10:59a m Bilateral pulmonary embolism September 05, 2 025 9:07am Pulmonary hypertension September 05, 2024 9: 07am Moderate chronic obstructive pulmonary d isease September 05, 2024 9:07am Multiple lung nodules September 05, 2024 9:0 7am CAMMIE (obstructive sleep apnea) September 05, 2024 9:07am Schizophrenia September 05, 2024 9:07a m Smoking greater than 20 pack years August 172024 9:07am Bilateral ankle pain September 24, 2024 9:53 am Pain in both knees September 24, 2024 9:53a m Fall September 24, 2024 9:53a m Bowel incontinence October 23, 2024 9:52a m Overflow diarrhea October 23, 2024 9:52a m Constipation October 23, 2024 9:52a m Chief Complaint Admit Date Other nonspecific abnormal finding of licha ng field July 02, 2024 1:00pm Diabetes July 23, 2024 12:5 7pm 4 M FU July 31, 2024 8:1 9am INT LABS August 10, 2024 10: 22am EST NEW PT - [place] PT August 13, 2024 12:52pm 6 M FU August 17, 2024 10:59a m 4 wk fu September 05, 2024 9:07a m ASSESSMENT FROM fallSeptember 24, 2024 9:53 am fu October 23, 2024 9:52a m E-ORER X-RAY October 23, 2024 11:16 am 3 M FU October 24, 2024 12:49 pm Reason for Visit Admit Date CKD (chronic kidney disease) July 23, 2024 12:57pm Diabetes July 23, 2024 12:5 7pm Hypertension July 23, 2024 12:5 7pm Neuropathy July 23, 2024 12:5 7pm Obesity July 23, 2024 12:5 7pm Hypercalcemia July 23, 2024 12:5 7pm Moderate chronic obstructive pulmonary d isease July 31, 2024 8:19am Multiple lung nodules July 31, 2024 8 :19am CAMMIE (obstructive sleep apnea) July 8:19am Schizophrenia July 31, 2024 8:1 9am Smoking greater than 20 pack years July 31, 2024 8:19am Bipolar disorder August 13, 2024 12: 52pm Pulmonary embolism August 13, 2024 12: 52pm CKD (chronic kidney disease) August 13, 2024 12:52pm Diabetes August 13, 2024 12: 52pm Moderate chronic obstructive pulmonary d isease August 13, 2024 12:52pm Multiple lung nodules August 13, 2024 1 2:52pm CAMMIE (obstructive sleep apnea) July 12:52pm Schizophrenia August 13, 2024 12: 52pm Immunization declined August 13, 2024 1 2:52pm Smokes cigarettes August 13, 2024 12: 52pm Establishing care with new doctor, ruba álvarez for August 13, 2024 12:52pm Essential hypertension August 13, 2024 12:52pm Pulmonary embolism August 17, 2024 10:59a m Hypertension August 17, 2024 10:59a m SOB (shortness of breath) August 17, 2024 10:59am Palpitations August 17, 2024 10:59a m Bilateral pulmonary embolism September 05, 9:07am Pulmonary hypertension September 05, 2024 9: 07am Moderate chronic obstructive pulmonary d isease September 05, 2024 9:07am Multiple lung nodules September 05, 2024 9:0 7am CAMMIE (obstructive sleep apnea) September 05, 2024 9:07am Schizophrenia September 05, 2024 9:07a m Smoking greater than 20 pack years August 172024 9:07am Bilateral ankle pain September 24, 2024 9:53 am Pain in both knees September 24, 2024 9:53a m Fall September 24, 2024 9:53a m Bowel incontinence October 23, 2024 9:52a m Overflow diarrhea October 23, 2024 9:52a m Constipation October 23, 2024 9:52a m CKD (chronic kidney disease) October 24, 12:49pm Diabetes October 24, 2024 12:49 pm Hypertension October 24, 2024 12:49 pm Microalbuminuria due to type 2 diabetes mellitus October 24, 2024 12:49pm Obesity October 24, 2024 12:49 pm Chief Complaint Admit Date Diabetes July 23, 2024 12:5 7pm 4 M FU July 31, 2024 8:1 9am INT LABS August 10, 2024 10: 22am EST NEW PT [employer] PT August 13, 2024 12:52pm 6 M FU August 17, 2024 10:59a m 4 wk fu September 05, 2024 9:07a m ASSESSMENT FROM fallSeptember 24, 2024 9:53 am fu October 23, 2024 9:52a m E-ORER X-RAY October 23, 2024 11:16 am 3 M FU October 24, 2024 12:49 pm Other nonspecific abnormal finding of licha ng field November 02, 2024 4:40pm constipation November 02, 2024 4:51 pm Chief Complaint Admit Date Diabetes July 23, 2024 12:5 7pm 4 M FU July 31, 2024 8:1 9am INT LABS August 10, 2024 10: 22am EST NEW [employer] PT August 13, 2024 12:52pm 6 M FU August 17, 2024 10:59a m 4 wk fu September 05, 2024 9:07a m ASSESSMENT FROM fallSeptember 24, 2024 9:53 am fu October 23, 2024 9:52a m E-ORER X-RAY October 23, 2024 11:16 am 3 M FU October 24, 2024 12:49 pm Other nonspecific abnormal finding of licha ng field November 02, 2024 4:40pm constipation November 02, 2024 4:51 pm Follow up after CT November 14, 2024 1:57 pm Reason for Visit Admit Date CKD (chronic kidney disease) July 23, 2024 12:57pm Diabetes July 23, 2024 12:5 7pm Hypertension July 23, 2024 12:5 7pm Neuropathy July 23, 2024 12:5 7pm Obesity July 23, 2024 12:5 7pm Hypercalcemia July 23, 2024 12:5 7pm Moderate chronic obstructive pulmonary d isease July 31, 2024 8:19am Multiple lung nodules July 31, 2024 8 :19am CAMMIE (obstructive sleep apnea) July 8:19am Schizophrenia July 31, 2024 8:1 9am Smoking greater than 20 pack years July 31, 2024 8:19am Bipolar disorder August 13, 2024 12: 52pm Pulmonary embolism August 13, 2024 12: 52pm CKD (chronic kidney disease) August 13, 2024 12:52pm Diabetes August 13, 2024 12: 52pm Moderate chronic obstructive pulmonary d isease August 13, 2024 12:52pm Multiple lung nodules August 13, 2024 1 2:52pm CAMMIE (obstructive sleep apnea) July 12:52pm Schizophrenia August 13, 2024 12: 52pm Immunization declined August 13, 2024 1 2:52pm Smokes cigarettes August 13, 2024 12: 52pm Establishing care with new doctor, ruba álvarez for August 13, 2024 12:52pm Essential hypertension August 13, 2024 12:52pm Pulmonary embolism August 17, 2024 10:59a m Hypertension August 17, 2024 10:59a m SOB (shortness of breath) August 17, 2024 10:59am Palpitations August 17, 2024 10:59a m Bilateral pulmonary embolism September 05, 025 9:07am Pulmonary hypertension September 05, 2024 9: 07am Moderate chronic obstructive pulmonary d isease September 05, 2024 9:07am Multiple lung nodules September 05, 2024 9:0 7am CAMMIE (obstructive sleep apnea) September 05, 2024 9:07am Schizophrenia September 05, 2024 9:07a m Smoking greater than 20 pack years August 172024 9:07am Bilateral ankle pain September 24, 2024 9:53 am Pain in both knees September 24, 2024 9:53a m Fall September 24, 2024 9:53a m Bowel incontinence October 23, 2024 9:52a m Overflow diarrhea October 23, 2024 9:52a m Constipation October 23, 2024 9:52a m CKD (chronic kidney disease) October 24, 2 025 12:49pm Diabetes October 24, 2024 12:49 pm Hypertension October 24, 2024 12:49 pm Microalbuminuria due to type 2 diabetes mellitus October 24, 2024 12:49pm Obesity October 24, 2024 12:49 pm Bilateral pulmonary embolism November 14, 2024 1:57pm Pulmonary hypertension November 14, 2024 1 :57pm Moderate chronic obstructive pulmonary d isease November 14, 2024 1:57pm Multiple lung nodules November 14, 2024 1: 57pm CAMMIE (obstructive sleep apnea) November 14, 2024 1:57pm Schizophrenia November 14, 2024 1:57 pm Smoking greater than 20 pack years November 14, 2024 1:57pm Additional Source Comments INFORMATION SOURCE (unrecogn ized section and content) DATE CREATED AUTHOR 10/11/2017 [facility] DATE CREATED AUTHOR AUTHOR'S ORGANIZ ATION 10/11/2017 [facility] DATE CREATED AUTHOR AUTHOR'S ORGANIZ ATION 04/11/2024 [facility] DATE CREATED AUTHOR AUTHOR'S ORGANIZ ATION 08/09/2024 [facility] DATE CREATED AUTHOR AUTHOR'S ORGANIZ ATION 11/20/2024 [facility] Source Comments (unrecognize d section and content) In the event this informatio n is protected by the Federal Confidentiality of Alcohol and Drug Abuse Patient Records regulations: The Federal rules restrict any use of the information to criminally investigate or prosecute any alcohol or drug abuse patient.[facility] the event this information is protected by the Federal Confidentiality of Alcohol and Drug Abuse Patient Records regulations: The Federal rules restrict any use of the information to criminally investigate or prosecute any alcohol or drug abuse patient.[facility] the event this information is protected by the Federal Confidentiality of Alcohol and Drug Abuse Patient Records regulations: The Federal rules restrict any use of the information to criminally investigate or prosecute any alcohol or drug abuse patient.[facility] Reason for Visit (unrecogniz ed section and content) Reason Comments Yearly Exam Care Teams (unrecognized sec tion and content) Team Status: Active Member Role Status Dates Dr. Eyad Robles MD Family Provider Active Dr. Eyad Robles MD Primary Care Provider Active Team Status: Inactive Member Role Status Dates Dr. Eyad Robles MD Primary Care Provider Active Dr. Marlin Estrada DO Referring Provider, Emergency P adrienne Active Team Status: Active Member Role Status Dates Dr. Eyad Robles MD Family Provider Active [facility] Primary Care Provider A ctive Team Status: Active Member Role Status Dates Dr. Guerrero Leroy DO Emergency Provider Active No Primary Care Physician Primary Care Provider Active Dr. Sergey Colon MD Admit Provi everett, Attending Provider, Other Provider Active Dr. Simone Bill DO Other Provider Active Team Status: Active Member Role Status Dates Dr. Guerrero Leroy DO Emergency Provider Active No Primary Care Physician Primary Care Provider Active Dr. Sergey Colon MD Admit Provider, Other Pro vider Active Dr. Simone Bill DO Attending Provider, Other Pro vider Active Team Status: Inactive Member Role Status Dates [facility] Primary Care Provider, Referring Provider Active Dr. Lorne Shea MD Attending Provider Active Team Status: Inactive Member Role Status Dates Dr. Eyad Robles MD Primary Care Provider Active Dr. Marlin Estrada DO Attending Provide r, Referring Provider, Emergency Provider Active Team Status: Inactive Member Role Status Dates Dr. Guerrero Leroy DO Emergency Provider Active No Primary Care Physician Primary Care Provider Active Dr. Sergey Colon MD Admit Provider, Other Pro vider Active Dr. Simone Bill DO Attending Provider Active Team Status: Inactive Member Role Status Dates [facility] Primary C are Provider, Attending Provider, Referring Provider Active Afia Driscoll METAL PLATER, METAL PLATER-C Other Provider Active Team Status: Inactive Member Role Status Dates [facility] Primary Care Provider A ctive Dr. Pipe Liu MD Attending Provider, Emergency Provider Active Team Status: Active Member Role Status Dates [facility] Primary C are Provider, Attending Provider, Referring Provider Active Afia Driscoll METAL PLATER, METAL PLATER-C Other Provider Active Team Status: Inactive Member Role Status Dates [facility] Primary Care Provider A ctive Dr. Lorne Shea MD Attending Provider, Referring Pr ovider Active Team Status: Active Member Role Status Dates Dr. Eyad Robles MD Family Provider Active Afia Driscoll METAL PLATER, METAL PLATER-C Primary Care Provider Active Team Status: Inactive Member Role Status Dates Salma Maldonado METAL PLATER, METAL PLATER-C Attending Provider, Referrin g Provider Active Afia Driscoll METAL PLATER, METAL PLATER-C Primary Care Provider Active Team Status: Active Member Role Status Dates [facility] Primary Care Provider A ctive Dr. Lorne Shea MD Referring Provider, Other Provid er Active Dr. Abdias Oreilly DO Attending Provider Active Team Status: Active Member Role Status Dates Dr. Lorne Shea MD Referring Provider, Other Provid er Active Afia Driscoll METAL PLATER, METAL PLATER-C Primary Care Provider Active Dr. Abdias Oreilly DO Attending Provider Active Team Status: Inactive Member Role Status Dates Dr. Lorne Shea MD Attending Provider, Referring Pr ovider Active Afia Driscoll METAL PLATER, METAL PLATER-C Primary Care Provider Active Team Status: Active Member Role Status Dates Afia Driscoll NP, METAL PLATER-C Primary Care Provider Active Dr. Pipe Liu MD Emergency Provider Active Dr. Nilson Green DO Admit Provi everett, Attending Provider, Other Provider Active Team Status: Inactive Member Role Status Dates Afia Driscoll NP, METAL PLATER-C Primary Care Provider Active Dr. Pipe Liu MD Emergency Provider Active Dr. Nilson Green DO Admit Provider, Attending Provider Active Team Status: Active Member Role Status Dates Afia Driscoll METAL PLATER, METAL PLATER-C Primary Care Provider Active Dr. Aundrea Espinoza DO Emergency Provider Active Dr. Sergey Colon MD Admit Provider, Attending Provider Active Team Status: Active Member Role Status Dates Dr. Eyad Robles MD Family Provider Active Afia Driscoll VSC, METAL PLATER-C Primary Care Provider Activ e Team Status: Active Member Role Status Dates Afia Driscoll METAL PLATER, METAL PLATER-C Primary Care Provider Active Dr. Aundrea Espinoza , DO Emergency Provider Active Dr. Sergey Colon MD Admit Provi everett, Attending Provider, Other Provider Active Team Status: Active Member Role Status Dates Afia Driscoll METAL PLATER, METAL PLATER-C Primary Care Provider Active Dr. Aundrea Espinoza , DO Emergency Provider Active Dr. Sergey Colon MD Admit Provider, Other Pro vider Active Dr. Annabelle Ayoub , DO Attending Provider, Other Provide r Active Team Status: Active Member Role Status Dates Afia Driscoll METAL PLATER, METAL PLATER-C Primary Care Provider Active Dr. Nabil Xie MD Attending Provider Active Team Status: Active Member Role Status Dates Afia Driscoll NP, METAL PLATER-C Primary Care Provider Active Dr. Aundrea Espinoza , DO Emergency Provider Active Dr. Sergey Colon MD Admit Provider, Other Pro vider Active Dr. Chino Ford , DO Attending Provider, Other Provid er Active Dr. Annabelle Ayoub , DO Other Provider Active Team Status: Inactive Member Role Status Dates Afia Driscoll NP, METAL PLATER-C Primary Care Provider Active Dr. Aundrea Espinoza , DO Emergency Provider Active Dr. Sergey Colon MD Admit Provider, Other Pro vider Active Dr. Chino Ford , DO Attending Provider Active Dr. Annabelle Ayoub , DO Other Provider Active Team Status: Active Member Role Status Dates Joy Rios METAL PLATER, METAL PLATER-C Primary Care Provider Active Team Status: Inactive Member Role Status Dates Joy Rios METAL PLATER, METAL PLATER-C Primary Care Provider Active Start: March 14, 2024 End: March 14, 2024 Joy Rios METAL PLATER, METAL PLATER-C Referring Provider Active Start: March 14, 2024 End: March 14, 2024 Nettie Thurston NP-C Attending Provider Active Start: March 14, 2024 End: March 14, 2024 Team Status: Active Member Role Status Dates Dr. Sen Gonzales MD Attending Provider Active Start: March 16, 2024 Dr. Sen Gonzales MD Referring Provider Active Start: March 16, 2024 Joy Rios NP, METAL PLATER-C Primary Care Provider Active Start: March 16, 2024 Team Status: Active Member Role Status Dates Joy Rios NP, METAL PLATER-C Primary Care Provider Active Start: March 16, 2024 Dr. Sen Gonzales MD Attending Provider Active Start: March 16, 2024 Dr. Sen Gonzales MD Referring Provider Active Start: March 16, 2024 Team Status: Inactive Member Role Status Dates Joy Rios METAL PLATER, METAL PLATER-C Primary Care Provider Active Start: March 27, 2024 End: March 27, 2024 Nettie Thurston METAL PLATER-C Attending Provider Active Start: March 27, 2024 End: March 27, 2024 Nettie Thurston METAL PLATER-C Referring Provider Active Start: March 27, 2024 End: March 27, 2024 Team Status: Inactive Member Role Status Dates Afianieves CALIXTO, METAL PLATER-C Primary Care Provider Activ e Start: March 29, 2024 End: March 29, 2024 Dr. Sen Gonzales MD Attending Provider Active Start: March 29, 2024 End: March 29, 2024 Dr. Sen Gonzales MD Referring Provider Active Start: March 29, 2024 End: March 29, 2024 Team Status: Active Member Role Status Dates Joy Rios NP, METAL PLATER-C Primary Care Provider Active Start: March 29, 2024 Dr. Ary Squires MD Attending Provider Activ e Start: March 29, 2024 Team Status: Inactive Member Role Status Dates Joy Rios METAL PLATER, METAL PLATER-C Primary Care Provider Active Start: April 03, 2024 End: April 03, 2024 Joy Rios NP, METAL PLATER-C Referring Provider Active Start: April 03, 2024 End: April 03, 2024 Nettie Thurston METAL PLATER-C Attending Provider Active Start: April 03, 2024 End: April 03, 2024 Team Status: Inactive Member Role Status Dates Joy Rios NP, METAL PLATER-C Primary Care Provider Active Start: April 03, 2024 End: April 03, 2024 Dr. Stefano Chan MD Attending Provider Active S tart: April 03, 2024 End: April 03, 2024 Dr. Stefano Chan MD Emergency Provider Active S tart: April 03, 2024 End: April 03, 2024 Team Status: Inactive Member Role Status Dates Joy Rios NP, METAL PLATER-C Primary Care Provider Active Start: April 10, 2024 End: April 10, 2024 Nettie Thurston NP-C Attending Provider Active Start: April 10, 2024 End: April 10, 2024 Nettie Thurston NP-C Referring Provider Active Start: April 10, 2024 End: April 10, 2024 Team Status: Inactive Member Role Status Dates Joy Rios NP, METAL PLATER-C Primary Care Provider Active Start: May 14, 2024 End: May 14, 2024 Dr. Sen Gonzales MD Attending Provider Active Start: May 14, 2024 End: May 14, 2024 Dr. Sen Gonzales MD Referring Provider Active Start: May 14, 2024 End: May 14, 2024 Team Status: Inactive Member Role Status Dates Joy Rios NP, METAL PLATER-C Primary Care Provider Active Start: May 25, 2024 End: May 25, 2024 Joy Rios NP, METAL PLATER-C Referring Provider Active Start: May 25, 2024 End: May 25, 2024 Teagan Estrada NP-C Attending Provider Active S tart: May 25, 2024 End: May 25, 2024 Team Status: Inactive Member Role Status Dates Joy Rios NP, METAL PLATER-C Primary Care Provider Active Start: July 02, 2024 End: July 02, 2024 Nettie Thurston NP-C Attending Provider Active Start: July 02, 2024 End: July 02, 2024 Nettie Thurston NP-C Referring Provider Active Start: July 02, 2024 End: July 02, 2024 Team Status: Active Member Role Status Dates Dr. Candy Ortiz MD Primary Care Provider Active Team Status: Inactive Member Role Status Dates Joy Rios NP, METAL PLATER-C Primary Care Provider Active Start: July 23, 2024 End: July 23, 2024 Joy Rios NP, METAL PLATER-C Referring Provider Active Start: July 23, 2024 End: July 23, 2024 Brandee Weems NP-C Attending Provider Active Start: July 23, 2024 End: July 23, 2024 Team Status: Inactive Member Role Status Dates Joy Rios NP, METAL PLATER-C Primary Care Provider Active Start: July 31, 2024 End: July 31, 2024 Joy Rios NP, METAL PLATER-C Referring Provider Active Start: July 31, 2024 End: July 31, 2024 Nettie Thurston NP-C Attending Provider Active Start: July 31, 2024 End: July 31, 2024 Team Status: Inactive Member Role Status Dates Joy Rios METAL PLATER, METAL PLATER-C Primary Care Provider Active Start: August 10, 2024 End: August 10, 2024 Joy Rios NP, METAL PLATER-C Attending Provider Active Start: August 10, 2024 End: August 10, 2024 Joy Rios NP, METAL PLATER-C Referring Provider Active Start: August 10, 2024 End: August 10, 2024 Brandee Weems METAL PLATER-C Other Provider Active Star t: August 10, 2024 End: August 10, 2024 Team Status: Inactive Member Role Status Dates Joy Rios NP, METAL PLATER-C Primary Care Provider Active Start: August 13, 2024 End: August 13, 2024 Joy Rios METAL PLATER, METAL PLATER-C Referring Provider Active Start: August 13, 2024 End: August 13, 2024 Dr. Candy Ortiz MD Attending Provider Active Start: August 13, 2024 End: August 13, 2024 Team Status: Inactive Member Role Status Dates Afia WILSONC, METAL PLATER-C Referring Provider Active Start: August 17, 2024 End: August 17, 2024 Anna Love NP, METAL PLATER-C Attending Provider Active Start: August 17, 2024 End: August 17, 2024 Dr. Candy Ortiz MD Primary Care Provider Active Start: August 17, 2024 End: August 17, 2024 Team Status: Inactive Member Role Status Dates Dr. Candy Ortiz MD Primary Care Provider Active Start: September 05, 2024 End: September 05, 2024 Dr. Candy Ortiz MD Referring Provider Active Start: September 05, 2024 End: September 05, 2024 Nettie Thurston NP-C Attending Provider Active Start: September 05, 2024 End: September 05, 2024 Team Status: Inactive Member Role Status Dates Dr. Candy Ortiz MD Primary Care Provider Active Start: September 24, 2024 End: September 24, 2024 Dr. Candy Ortiz MD Attending Provider Active Start: September 24, 2024 End: September 24, 2024 Dr. Candy Ortiz MD Referring Provider Active Start: September 24, 2024 End: September 24, 2024 Team Status: Active Member Role/Relationship Status Dates Dr. Candy Ortiz MD Primary Care Provider Active Team Status: Inactive Member Role/Relationship Status Dates Joy Rios NP, METAL PLATER-C Primary Care Provider Active Start: July 02, 2024 End: July 02, 2024 Nettie Thurston METAL PLATER-C Attending Provider Active Start: July 02, 2024 End: July 02, 2024 Nettie Thurston METAL PLATER-C Referring Provider Active Start: July 02, 2024 End: July 02, 2024 Team Status: Inactive Member Role/Relationship Status Dates Joy Rios METAL PLATER, METAL PLATER-C Primary Care Provider Active Start: July 23, 2024 End: July 23, 2024 Joy Rios METAL PLATER, METAL PLATER-C Referring Provider Active Start: July 23, 2024 End: July 23, 2024 Brandee Weems NP-C Attending Provider Active Start: July 23, 2024 End: July 23, 2024 Team Status: Inactive Member Role/Relationship Status Dates Joy Rios NP, METAL PLATER-C Primary Care Provider Active Start: July 31, 2024 End: July 31, 2024 Joy Rios NP, METAL PLATER-C Referring Provider Active Start: July 31, 2024 End: July 31, 2024 Nettie Thurston METAL PLATER-C Attending Provider Active Start: July 31, 2024 End: July 31, 2024 Team Status: Inactive Member Role/Relationship Status Dates Joy Rios NP, METAL PLATER-C Primary Care Provider Active Start: August 10, 2024 End: August 10, 2024 Joy Rios NP, METAL PLATER-C Attending Provider Active Start: August 10, 2024 End: August 10, 2024 Joy Rios NP, METAL PLATER-C Referring Provider Active Start: August 10, 2024 End: August 10, 2024 Brandee Weems NP-C Other Provider Active Star t: August 10, 2024 End: August 10, 2024 Team Status: Inactive Member Role/Relationship Status Dates Joy Rios NP, METAL PLATER-C Primary Care Provider Active Start: August 13, 2024 End: August 13, 2024 Joy Rios METAL PLATER, METAL PLATER-C Referring Provider Active Start: August 13, 2024 End: August 13, 2024 Dr. Candy Ortiz MD Attending Provider Active Start: August 13, 2024 End: August 13, 2024 Team Status: Inactive Member Role/Relationship Status Dates Afia Carter WILSONC, METAL PLATER-C Referring Provider Active Start: August 17, 2024 End: August 17, 2024 Anna Love METAL PLATER, METAL PLATER-C Attending Provider Active Start: August 17, 2024 End: August 17, 2024 Dr. Candy Ortiz MD Primary Care Provider Active Start: August 17, 2024 End: August 17, 2024 Team Status: Inactive Member Role/Relationship Status Dates Dr. Candy Ortiz MD Primary Care Provider Active Start: September 05, 2024 End: September 05, 2024 Dr. Candy Ortiz MD Referring Provider Active Start: September 05, 2024 End: September 05, 2024 Nettie Thurston NP-C Attending Provider Active Start: September 05, 2024 End: September 05, 2024 Team Status: Inactive Member Role/Relationship Status Dates Dr. Candy Ortiz MD Primary Care Provider Active Start: September 24, 2024 End: September 24, 2024 Dr. Candy Ortiz MD Attending Provider Active Start: September 24, 2024 End: September 24, 2024 Dr. Candy Ortiz MD Referring Provider Active Start: September 24, 2024 End: September 24, 2024 Team Status: Inactive Member Role/Relationship Status Dates Dr. Candy Ortiz MD Primary Care Provider Active Start: October 23, 2024 End: October 23, 2024 Dr. Candy Ortiz MD Referring Provider Active Start: October 23, 2024 End: October 23, 2024 OMAIRA LouC Attending Provider Active S tart: October 23, 2024 End: October 23, 2024 Team Status: Active Member Role/Relationship Status Dates Dr. Candy Ortiz MD Primary Care Provider Active Start: October 23, 2024 LOUISE Lou Attending Provider Active S tart: October 23, 2024 LOUISE Lou Referring Provider Active S tart: October 23, 2024 Team Status: Inactive Member Role/Relationship Status Dates Joy Rios NP, METAL PLATER-C Referring Provider Active Start: October 24, 2024 End: October 24, 2024 Brandee Weems METAL PLATER-C Attending Provider Active Start: October 24, 2024 End: October 24, 2024 Dr. Candy Ortiz MD Primary Care Provider Active Start: October 24, 2024 End: October 24, 2024 Team Status: Inactive Member Role/Relationship Status Dates Dr. Candy Ortiz MD Primary Care Provider Active Start: October 23, 2024 End: October 23, 2024 Teagan Estrada METAL PLATER-C Attending Provider Active S tart: October 23, 2024 End: October 23, 2024 Teagan Estrada NP-C Referring Provider Active S tart: October 23, 2024 End: October 23, 2024 Team Status: Inactive Member Role/Relationship Status Dates Joy Rios NP, METAL PLATER-C Primary Care Provider Active Start: July 23, 2024 End: July 23, 2024 Joy Rios METAL PLATER, METAL PLATER-C Referring Provider Active Start: July 23, 2024 End: July 23, 2024 Brandee Weems METAL PLATER-C Attending Provider Active Start: July 23, 2024 End: July 23, 2024 Team Status: Inactive Member Role/Relationship Status Dates Joy Rios NP, METAL PLATER-C Primary Care Provider Active Start: July 31, 2024 End: July 31, 2024 Joy Rios NP, METAL PLATER-C Referring Provider Active Start: July 31, 2024 End: July 31, 2024 Nettie Thurston METAL PLATER-C Attending Provider Active Start: July 31, 2024 End: July 31, 2024 Team Status: Inactive Member Role/Relationship Status Dates Joy Rios NP, METAL PLATER-C Primary Care Provider Active Start: August 10, 2024 End: August 10, 2024 Joy Rios NP, METAL PLATER-C Attending Provider Active Start: August 10, 2024 End: August 10, 2024 Joy Rios NP, METAL PLATER-C Referring Provider Active Start: August 10, 2024 End: August 10, 2024 Brandee Weems METAL PLATER-C Other Provider Active Star t: August 10, 2024 End: August 10, 2024 Team Status: Inactive Member Role/Relationship Status Dates Joy Rios NP, METAL PLATER-C Primary Care Provider Active Start: August 13, 2024 End: August 13, 2024 Joy Rios METAL PLATER, METAL PLATER-C Referring Provider Active Start: August 13, 2024 End: August 13, 2024 Dr. Candy Ortiz MD Attending Provider Active Start: August 13, 2024 End: August 13, 2024 Team Status: Inactive Member Role/Relationship Status Dates Afia WILSONC, METAL PLATER-C Referring Provider Active Start: August 17, 2024 End: August 17, 2024 Anna Love METAL PLATER, METAL PLATER-C Attending Provider Active Start: August 17, 2024 End: August 17, 2024 Dr. Candy Ortiz MD Primary Care Provider Active Start: August 17, 2024 End: August 17, 2024 Team Status: Inactive Member Role/Relationship Status Dates Dr. Candy Ortiz MD Primary Care Provider Active Start: September 05, 2024 End: September 05, 2024 Dr. Candy Ortiz MD Referring Provider Active Start: September 05, 2024 End: September 05, 2024 Nettie Thurston METAL PLATER-C Attending Provider Active Start: September 05, 2024 End: September 05, 2024 Team Status: Inactive Member Role/Relationship Status Dates Dr. Candy Ortiz MD Primary Care Provider Active Start: September 24, 2024 End: September 24, 2024 Dr. Candy Ortiz MD Attending Provider Active Start: September 24, 2024 End: September 24, 2024 Dr. Candy Ortiz MD Referring Provider Active Start: September 24, 2024 End: September 24, 2024 Team Status: Inactive Member Role/Relationship Status Dates Dr. Candy Ortiz MD Primary Care Provider Active Start: October 23, 2024 End: October 23, 2024 Dr. Candy Ortiz MD Referring Provider Active Start: October 23, 2024 End: October 23, 2024 OMAIRA LouC Attending Provider Active S tart: October 23, 2024 End: October 23, 2024 Team Status: Inactive Member Role/Relationship Status Dates Dr. Candy Ortiz MD Primary Care Provider Active Start: October 23, 2024 End: October 23, 2024 OMAIRA LouC Attending Provider Active S tart: October 23, 2024 End: October 23, 2024 Teagan Estrada , METAL PLATER-C Referring Provider Active S tart: October 23, 2024 End: October 23, 2024 Team Status: Inactive Member Role/Relationship Status Dates Joy Rios NP, METAL PLATER-C Referring Provider Active Start: October 24, 2024 End: October 24, 2024 Brandee Weems , METAL PLATER-C Attending Provider Active Start: October 24, 2024 End: October 24, 2024 Dr. Candy Ortiz MD Primary Care Provider Active Start: October 24, 2024 End: October 24, 2024 Team Status: Active Member Role/Relationship Status Dates Dr. Candy Ortiz MD Primary Care Provider Active Start: November 02, 2024 Nettie Thurston NP-C Attending Provider Active Start: November 02, 2024 Nettie Thurston NP-C Referring Provider Active Start: November 02, 2024 Team Status: Inactive Member Role/Relationship Status Dates Dr. Candy Ortiz MD Primary Care Provider Active Start: November 02, 2024 End: November 02, 2024 Dr. Aundrea Espinoza DO Emergency Provider Active S tart: November 02, 2024 End: November 02, 2024 Team Status: Inactive Member Role/Relationship Status Dates Dr. Candy Ortiz MD Primary Care Provider Active Start: November 02, 2024 End: November 02, 2024 Nettie Thurston NP-C Attending Provider Active Start: November 02, 2024 End: November 02, 2024 Nettie Thurston NP-C Referring Provider Active Start: November 02, 2024 End: November 02, 2024 Team Status: Inactive Member Role/Relationship Status Dates Dr. Candy Ortiz MD Primary Care Provider Active Start: November 02, 2024 End: November 02, 2024 Dr. Aundrea Espinoza DO Attending Provider Active S tart: November 02, 2024 End: November 02, 2024 Dr. Aundrea Espinoza DO Emergency Provider Active S tart: November 02, 2024 End: November 02, 2024 Team Status: Inactive Member Role/Relationship Status Dates Dr. Candy Ortiz MD Primary Care Provider Active Start: November 14, 2024 End: November 14, 2024 Dr. Candy Ortiz MD Referring Provider Active Start: November 14, 2024 End: November 14, 2024 LOUISE Kidd Attending Provider Active Start: November 14, 2024 End: November 14, 2024 Goals (unrecognized section and content) Goals may be documented in a n alternate sectionGoals may be documented in an alternate sectionGoals may be documented in an alternate sectionGoals may be documented in an alternate sectionGoals may be documented in an alternate sectionGoals may be documented in an alternate sectionGoals may be documented in an alternate sectionGoals may be documented in an alternate sectionGoals may be documented in an alternate sectionGoals may be documented in an alternate section FOR RECORDS PERTAINING TO PATIENTS WHO ARE OR HAVE BEEN ENROLLED IN A CHEMICAL DEPENDENCY/SUBSTANCEABUSE PROGRAM, SOME INFORMATION MAY BE OMITTED. This clinical summary was aggregated from multiple sources. Caution should be exercised in using it in the provision of clinical care. This summary normalizes information from multiple sources, and as a consequence, information in this document may materially change the coding, format and clinical context of patient data. In addition, data may be omitted in some cases. CLINICAL DECISIONS SHOULD BE BASED ON THE PRIMARY CLINICAL RECORDS. [facility]. provides no warranty or guarantee of the accuracy or completeness of information in this document.
[2024-11-21] MEDS: Lactated Ringers 1,000 ML 15 ML IV (07:51)
--- NOTE | 2024-11-21 08:12 | HP.PCM_ITS ---
HPI - General General Date of Admission: 11/21/24 Date of Service: 11/21/24 Chief Complaint: Diarrhea HPI Narrative MANUEL HORN, is a 54 F who presents for evaluation of diarrhea and fecal incontinence 2 OV establishment with [facility] in order to obtain a colonoscopy s/p concerns on a recent PET scan. She reports small pulmonary findings on xray in combination w/ being a 1ppd smoker x20+ yrs prompted a complete PET scan for investigation. Radiologist reading PET scan recommended direct visualization of rectal vault d/t localized attenuation of contrast in this area. She reports having GERD controlled w/daily omeprazole, abdominal bloating w/cramping, and constipation. She states that she passes patti EOD w/mod amt of straining and tenesmus; has a complete BM maybe once a month. She denies difficulty chewing and swallowing, heartburn, nausea, vomiting, abdominal pain, diarrhea, hematochezia, and melena. She has tried and failed OTC Miralax, probiotic yogurt, and laxative pills. She briefly used tirzepitide, stopping d/t liquid diarrhea, and changed to Januvia for DM management. 07.13.24 Contact Pt called stating she would like to cancel her colonoscopy that is scheduled for 07/31/24 and will call back when she wants to reschedule. Surgery scheduling call and made aware of this change. 10.23.24 OV She reports that she her constipation has changed to diarrhea of pencil thin stools and is crapping the bed. She states that she has minimal warnings of needing to have a BM, usually just a minute to get to the toilet. She reports nearly complete fecal incontinence during her chronic coughing daily. Once to the toilet, she states there isn't much left to evacuate and then I have to take a shower because of how sticky the stools are. She states that she had to cancel her colonoscopy due to transportation issues, but is willing to move mountains to make sure she can get a ride for a colonoscopy this time. She expresses desire to finally know what was seen in her bowels during the PET scan. She stopped the Metamucil recommended to her at last OV and has been taking anti-diarrheal medications without effect on her fecal incontinence. She continues to drink bottled water and states that she gets plenty of fiber because that's how [she] can eat so many carbs despite her diabetes. [She] subtracts the fiber count from the carbs. [facility] Medical History Wears glasses Schizoaffective disorder Marijuana use History of renal disease Excessive bleeding Dietary restriction History of IBS Heartburn Sleep apnea On home oxygen therapy Chronic cough Shortness of breath on exertion COPD (chronic obstructive pulmonary disease) History of echocardiogram Cardiology follow-up encounter Fibromyalgia Hypertension Palpitations Moderate chronic obstructive pulmonary disease Chronic hypoxic respiratory failure Bipolar disorder Schizophrenia Depression Diabetes Chronic pain Smoker BiPAP (biphasic positive airway pressure) dependence Pulmonary embolism Morbid obesity with BMI of 50.0-59.9, adult Hypersomnia Pulmonary infarction Bilateral pulmonary embolism Morbid obesity Nicotine dependence, cigarettes, uncomplicated Tobacco abuse Non-healing surgical wound Cellulitis and abscess of neck Upper airway obstruction Bahman's angina Acute respiratory failure Bipolar disorder Anxiety Chronic back pain Home Medications ?Medication ?Instructions ?Recorded ?Last Taken ?Type valacyclovir 1 gram tablet 1,000 mg PO DAILY anti viru s 08/12/18 11/18/24 History aripiprazole lauroxil 882 mg/3.2 882 mg IM QMONTH [facility] 09/12/18 11/09/24 History mL suspension, ext.rel. IM syringe gabapentin 300 mg capsule 300 mg PO TIDCM nerve pain 0 07/02/20 11/19/24 History bupropion HCl 300 mg 24 hr tablet, 300 mg PO DAILY [facility] 09/04/22 11/18/24 History extended release omeprazole 20 mg tablet,delayed 20 mg PO DAILY reflux 09/04/22 11/18/24 History release acetaminophen 325 mg tablet 650 mg (2 x 325 mg) PO Q4H PRN PRN 09/05/22 07/29/23 08:00 Rx Fever, pain -01/25 #0 tabs 650 mg apixaban 5 mg tablet (Eliquis) 5 mg PO Q12H blood thin ner 05/27/23 11/18/24 History diabetic supplies, miscellan. #1 ea 08/02/23 Unknown R x cetirizine 10 mg tablet 10 mg PO QDAY 10/27/2311/18 History budesonide 160 mcg-glycopyr 9 2 inh inhalation BID #3 ea 02/06/24 Unknown Rx mcg-formot 4.8 mcg/actuation HFA inhaler (Breztri Aerosphere) ipratropium 0.5 mg-albuterol 3 mg 3 ml inhalation Q4H PRN PRN SOB 02/06/24 Unknown Rx (2.5 mg base)/3 mL nebulization &/OR WHEEZING #180 mL soln metformin 1,000 mg tablet 1,000 mg PO BID 03/07/2407/10 History amlodipine 10 mg tablet 10 mg PO QDAY #30 tabs 04/3011/18/24 Rx lisinopril 20 mg tablet 20 mg PO BID #60 tabs 11/18/24 Rx glimepiride 2 mg tablet 2 mg PO BID #60 tabs 5 11/18/24 Rx blood sugar diagnostic (OneTouch #100 ea 08/08/24 Unkn own Rx Verio test strips) cholecalciferol (vitamin D3) 25 25 mcg PO QDAY 5 11/18/24 History mcg (1,000 unit) capsule leg brace (PADMINI Ankle Brace) #2 ea 09/24/24 Unknown Rx leg brace (PADMINI Knee Brace) #2 ea 09/24/24 Unknown Rx blood-glucose sensor (FreeStyle #2 ea 10/24/[address] Plus Sensor device) empagliflozin 25 mg tablet 25 mg PO QAM #30 tabs 10/2411/18/24 Rx (Jardiance) semaglutide 0.25 mg or 0.5 mg (2 0.25 mg (0.368 mL) church bcut QWEEK #3 10/24/24 11/09/24 Rx mg/3 mL) subcutaneous pen injector mL (Ozempic) albuterol sulfate 90 mcg/actuation 1 - 2 puff inhalati on Q4H PRN PRN 10/29/24 Unknown Rx aerosol inhaler (Ventolin HFA) Wheezing ##1 blood-glucose,tower watchman,cont #1 ea 11/12/24 Unknown Rx (FreeStyle [address] [place]) Allergy/AdvReac Type Severity Reaction Status Date / Time prednisone AdvReac Other Verified 11/21/24 07:38 Sulfa (Sulfonamide AdvReac Rash Verified 11/21/24 07:38 Antibiotics) Family History Other Adopted Surgical History History of mandibular surgery History of adenoidectomy History of cholecystectomy Social History household members: none current occupational status: disabled 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 Smoking Status: Current every day smoker tobacco type: cigarettes second hand exposure: Yes quit status: not considering quitting alcohol intake: never substance use type: does not use frequency: 3-4 times per week do you feel safe at home: Yes ROS Constitutional Constitutional: Denies fatigue, fever(s), poor appetite, weight gain or weight loss Gastrointestinal Gastrointestinal: Denies belching, bloating, change in bowel habits, change in s tool character, chewing difficulty, coffee ground emesis, constipation, cramping, diarrhea, dyspepsia, dysphagia, early satiety, excessive flatus, fecal incontinence, heartburn, hematemesis, hematochezia, hemorrhoids, loose stools, melena, nausea, odynophagia, rectal bleeding, tenesmus, vomiting or weight changes Vital Signs Vital Signs Vital Signs: 11/21/24 07:41 11/21/24 07:41 Temperature 97.1 F L Temperature Source Temporal Pulse Rate 82 Respiratory Rate 24 H Respiratory Pattern Tachypnea Blood Pressure 151/93 H Blood Pressure Mean 112 Blood Pressure Source Monitor Blood Pressure Position Semi-Fowlers Blood Pressure Location Left Arm Pulse Ox 93 Oxygen Delivery Method Room Air Weight Weight: 246 lb 14.684 oz Body Mass Index (BMI) 45.1 Physical Exam Const alert, oriented x3, no apparent distress and healthy appearing General Appearance: cooperative GI normal to inspection, nondistended, normoactive bowel sounds, soft to palpation, non-tender and non-distended Percussion: normal to percussion Rectal Exam: deferred Assessment & Plan Assessment/Plan (1) Overflow diarrhea: PLAN: Assessment and Plan Assessment and Plan (1) Constipation: Status: Chronic Qualifiers: Constipation type: unspecified constipation type Qualified Code(s): K59.00 - Constipation, unspecified (2) Overflow diarrhea: Status: Acute (3) Bowel incontinence: Status: Acute Qualifiers: Fecal incontinence type: incomplete defecation Qualified Code(s): R15.0 - Incomplete defecation Orders: Orders Calprotectin, Stool Today K59.00 - Constipation, unspecified, R15.9 - Full incontinence of feces, R19.7 - Diarrhea, unspecified ENTERIC PATHOGEN PANEL STOOL Today K58.9 - Irritable bowel syndrome, unspecified, K59.00 - Constipation, unspecified, R15.9 - Full incontinence of feces, R19.7 - Diarrhea, unspecified Pancreatic Elastase, Fecal Today K59.00 - Constipation, unspecified, R15.9 - Full incontinence of feces, R19.7 - Diarrhea, unspecified Abdomen Single View Today K59.00 - Constipation, unspecified, R15.9 - Full incontinence of feces, R19.7 - Diarrhea, unspecified Plan MANUEL HORN, is a 54 F who presents to the office today for FU. Discussed care plan with her. Reviewed overflow diarrhea related to constipation. She states that she didn't mind the Metamucil, just didn't think it made that big of difference. Denies excess bloating and gas related. * schedule colonoscopy * KUB now to assess stool pattern * stool for calprotectin, pancreatic elastase, enteric pathogens * recommended magnesium citrate 5oz, wait 4-6hrs, if no substantial BM then take another 5oz * office FU 2wks after colonoscopy
--- NOTE | 2024-11-21 08:12 | PCM.PRE.AN2 ---
ASA Classification* ASA Classification ASA Classification: 3 Assessment & Plan Anesthesia* Anesthesia Assessment Anesthesia Assessment: Discussed sedation and/or anesthesia options, risks, benefits, and alternatives with patient/parents/legal guardian/POA. Questions invited. The patient/parents/legal guardian/POA seems to understand and agrees to proceed with anesthesia plan. Reviewed the physical assessment, medical history, allergy history and patient home medications list prior to surgery/procedure/anesthetic and documented any changes. Performed airway and anesthesia risk assessments. Anesthesia Type Anesthesia Type: MAC Anesthesia Focused Assessment* Temperature: 97.1 F Pulse Rate: 82 Blood Pressure: 151/93 Respiratory Rate: 24 Pulse Ox: 93 Airway Assessment Mouth opens: >3 cm Mallampati Score: II Labs Anesthesia Preop lab: CBC WBC 10.0 K/mm3 (4.4-11.0) 11/02/24 17:19 11/02/24 RBC 6.02 M/mm3 (4.2-5.4) H 11/02/24 17:19 11/02/24 Hgb 16.1 g/dL (12.0-15.0) H 11/02/24 17:19 11/02/24 Hct 51.6 % (37-47) H 11/02/24 17:19 11/02/24 Plt Count 293 K/mm3 (150-450) 11/02/24 17:19 11/02/24 CHEMISTRY Potassium 4.6 mmol/L (3.3-5.1) 11/02/24 17:19 11/02/24 Sodium 139 mmol/L (133-145) 11/02/24 17:19 11/02/24 Magnesium 1.8 mg/dL (1.6-2.6) 08/01/23 05:11 08/01/23 Phosphorus 4.0 mg/dL (2.5-4.9) 07/31/23 06:16 07/31/23 BUN 25 mg/dL (4-19) H 11/02/24 17:19 11/02/24 Creatinine 1.30 mg/dL (0.70-1.20) H 11/02/24 17:19 11/02/24 Glucose 109 mg/dL (70-99) H 11/02/24 17:19 11/02/24 POC Glucose 276 mg/dL (74-106) H 08/02/23 11:29 08/02/23 TSH 3.240 uIU/mL (0.300-4.200) 08/10/24 10:41 08/10/24 COAG PT 15.1 SECONDS (11.7-14.9) H 08/10/24 10:41 08/10/24 Pre-Assessment Diagnosis/Proposed Procedure Planned Operative Procedure(s): COLONOSCOPY Anesthesia History Anesthesia History - dental hygienist: Anesthesia History - dental hygienist Hx Hospitalization No 11/16/24 10:54 Any Problems With Anesthesia No 11/16/24 10:54 Cholinesterase deficiency No 11/16/24 10:54 You/Your Family Experience Yes: ADOPTED 11/16/24 10:54 fever (hyperthermia) with Relationship Recent Exposure to Contagious No 11/21/24 07:41 Disease Does patient have nerve No 11/16/24 10:54 stimulator Patient instructed to have device shut off --Does patient have Pacemaker No 11/21/24 07:41 or ICD? When Was Last Pacemaker Check QUESTION #4 FULL TEXT: You/Your Family Experience fever (hyperthermia) with Anesthesia Last Oral Intake Last Oral intake: Last Oral Intake NPO since 05:00 11/21/24 07:41 Meds taken in AM with sips of water? Meds patient instructed to take am of surgery PONV PONV - dental hygienist: PONV - dental hygienist Female Yes 11/16/24 10:54 HX of Motion Sickness No 11/16/24 10:54 HX of N/V After Surgery No 11/16/24 10:54 Non-Smoker No 11/16/24 10:54 Duration of Surgery greater No 11/16/24 10:54 than 60 minutes Number of Risk Factors 1 11/16/24 10:54 PONV Score Low Risk 11/16/24 10:54 Height & Weight Height & Weight: Anesthesia: Height & Weight Height 5 ft 2 in 11/21/24 07:41 Weight: 112 kg 11/21/24 07:41 Body Mass Index (BMI) 45.1 11/21/24 07:41 Respiratory Assessment Respiratory Assessment - dental hygienist: Respiratory Tract Infection Hx - dental hygienist Hx Respiratory Tract Infection No 11/16/24 10:54 STOP Sleep Apnea STOP Sleep Apnea - dental hygienist: STOP Sleep Apnea - dental hygienist Hx Hypertension Yes 11/16/24 10:54 Hx Sleep Apnea Yes 11/16/24 10:54 CPAP No 11/16/24 10:54 BIPAP Yes: NONCOMPLIANT 11/16/24 10:54 Do you snore loudly (louder than talking or can be heard Do you often feel tired/ fatigued/ sleepy during daytime? Has anyone observed you stop breathing during sleep? STOP Results Positive 11/16/24 10:54 QUESTION #5 FULL TEXT : Do you snore loudly (louder than talking or can be heard through closed doors)? Tobacco Use History Tobacco Use History - dental hygienist: Tobacco Use History - dental hygienist Tobacco Use Smoking Status Current every day smoker 11/16/24 10:54 Hx Tobacco Use Yes 11/16/24 10:54 Years Smoking Packs Smoked per Day Smoking Cessation Date was within the last 15 years Hx Smoking Cessation Date Hx Smoking Cessation No 11/16/24 10:54 Counseling Hematologic Medial History Hematologic Hx - dental hygienist: Hematologic Medical Hx - documentation consultant Hx of Blood Transfusion No 11/16/24 10:54 Hx of Transfusion in last 3 No 11/16/24 10:54 Months Date of Last Transfusion (if within last 3 months) Ever experience any problems No 11/16/24 10:54 with transfusion(s)? Specify any problems Hx of Preganancy in last 3 No 11/16/24 10:54 Months Nurse Filling Out Transfusion [facility] 11/16/24 10:54 & Questions: Date: 11/16/24 11/16/24 10:54 Time: 10:57 11/16/24 10:54 Patient unable to answer at this time (ie. confused, unrespo /Reproduction History /Reproductive History - dental hygienist: /Reproductive Hx- dental hygienist Hx Now No 11/16/24 10:54 Gestational Age (in weeks): EDC: Hx Hx Para Hx Section SAB No 11/16/24 10:54 Active Medications Active Medications: Current Medications Generic Name Dose Route Start Last Admin Trade Name Freq PRN Reason Stop Dose Admin Lactated Ringer's 1,000 mls @ 15 mls/hr 11/21/24 07:30 11/21/24 07:51 IV 15 mls/hr .Q48H ALEXANDER Administration PFSH Medical History Wears glasses Schizoaffective disorder Marijuana use History of renal disease Excessive bleeding Dietary restriction History of IBS Heartburn Sleep apnea On home oxygen therapy Chronic cough Shortness of breath on exertion COPD (chronic obstructive pulmonary disease) History of echocardiogram Cardiology follow-up encounter Fibromyalgia Hypertension Palpitations Moderate chronic obstructive pulmonary disease Chronic hypoxic respiratory failure Bipolar disorder Schizophrenia Depression Diabetes Chronic pain Smoker BiPAP (biphasic positive airway pressure) dependence Pulmonary embolism Morbid obesity with BMI of 50.0-59.9, adult Hypersomnia Pulmonary infarction Bilateral pulmonary embolism Morbid obesity Nicotine dependence, cigarettes, uncomplicated Tobacco abuse Non-healing surgical wound Cellulitis and abscess of neck Upper airway obstruction Bahman's angina Acute respiratory failure Bipolar disorder Anxiety Chronic back pain Home Medications ?Medication ?Instructions ?Recorded ?Last Taken ?Type valacyclovir 1 gram tablet 1,000 mg PO DAILY anti virus 08/12/18 11/18/24 History aripiprazole lauroxil 882 mg/3.2 882 mg IM QMONTH mental health 09/12/18 11/09/24 History mL suspension, ext.rel. IM syringe gabapentin 300 mg capsule 300 mg PO TIDCM nerve pain 07/02/20 11/19/24 History bupropion HCl 300 mg 24 hr tablet, 300 mg PO DAILY mental health 09/04/22 11/18/24 History extended release omeprazole 20 mg tablet,delayed 20 mg PO DAILY reflux 09/04/22 11/18/24 History release acetaminophen 325 mg tablet 650 mg (2 x 325 mg) PO Q4H PRN PRN 09/05/22 07/29/23 08:00 Rx Fever, pain -01/25 #0 tabs 650 mg apixaban 5 mg tablet (Eliquis) 5 mg PO Q12H blood thinner 05/27/23 11/18/24 History diabetic supplies, miscellan. #1 ea 08/02/23 Unknown Rx cetirizine 10 mg tablet 10 mg PO QDAY 10/27/23 11/18/24 History budesonide 160 mcg-glycopyr 9 2 inh inhalation BID #3 ea 02/06/24 Unknown Rx mcg-formot 4.8 mcg/actuation HFA inhaler (Breztri Aerosphere) ipratropium 0.5 mg-albuterol 3 mg 3 ml inhalation Q4H PRN PRN SOB 02/06/24 Unknown Rx (2.5 mg base)/3 mL nebulization &/OR WHEEZING #180 mL soln metformin 1,000 mg tablet 1,000 mg PO BID 03/07/24 11/18/24 History amlodipine 10 mg tablet 10 mg PO QDAY #30 tabs 04/30/24 11/18/24 Rx lisinopril 20 mg tablet 20 mg PO BID #60 tabs 04/30/24 11/18/24 Rx glimepiride 2 mg tablet 2 mg PO BID #60 tabs 07/23/24 11/18/24 Rx blood sugar diagnostic (OneTouch #100 ea 08/08/24 Unknown Rx Verio test strips) cholecalciferol (vitamin D3) 25 25 mcg PO QDAY 09/05/24 11/18/24 History mcg (1,000 unit) capsule leg brace (PADMINI Ankle Brace) #2 ea 09/24/24 Unknown Rx leg brace (PADMINI Knee Brace) #2 ea 09/24/24 Unknown Rx blood-glucose sensor (FreeStyle #2 ea 10/24/24 Unknown Rx Km 3 Plus Sensor device) empagliflozin 25 mg tablet 25 mg PO QAM #30 tabs 10/24/24 11/18/24 Rx (Jardiance) semaglutide 0.25 mg or 0.5 mg (2 0.25 mg (0.368 mL) subcut QWEEK #3 10/24/24 11/09/24 Rx mg/3 mL) subcutaneous pen injector mL (Ozempic) albuterol sulfate 90 mcg/actuation 1 - 2 puff inhalation Q4H PRN PRN 10/29/24 Unknown Rx aerosol inhaler (Ventolin HFA) Wheezing ##1 blood-glucose,glove cutter,cont #1 ea 11/12/24 Unknown Rx (FreeStyle Km [address] [place]) Allergy/AdvReac Type Severity Reaction Status Date / Time prednisone AdvReac Other Verified 11/21/24 07:38 Sulfa (Sulfonamide AdvReac Rash Verified 11/21/24 07:38 Antibiotics) Family History Other Adopted Surgical History History of mandibular surgery History of adenoidectomy History of cholecystectomy Social History household members: none current occupational status: disabled 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
--- NOTE | 2024-11-21 08:30 | COLBX_PTH ---
PATIENT: MANUEL HORN LOC: EN U#:[id number] AGE/SX: 54/F ROOM: RE11/21/[address]: Dr. Jason Kirk DO : 1970 BED: DIS: 11/21/2024 SPEC #: [id number] RECD: 11/21/24 09:37 STATUS: JOSETTE REWilber #: [id number] AJIT: 11/21/24 08:[address]: Jason Kirk DEPT: SURGICAL PATHOLOGY RECD BY: Maximino Zepeda ENTERED: 11/21/24 11:53 SP TYPE: COLON BX OTHR DR: Dr. Candy Ortiz MD Tissues: A - Ileum, NOS B - COLON BIOPSY C - SPLENIC FLEXURE D - Sigmoid colon biopsy E - Rectosigmoid junction Procedures: Surgery Specimen Level IV HEADER OPERATION: Colonoscopy with biopsy, polyps, hot snare of polyp sigmoid PRE-OP DIAGNOSIS: Constipation, overflow diarrhea, bowel incontinence TISSUE SUBMITTED: A- Terminal ileum biopsy, B- Random colon biopsy, C- Splenic flexure polyp, D- Sigmoid polyp, E- Recto-sigmoid junction polyp MICROSCOPIC DIAGNOSIS A. Terminal ileum, biopsy: - Normal villous architecture with prominent mucosal lymphoid tissue, favor reactive. B. Colon, random, biopsy: - No specific pathologic change. - The histologic features of microscopic colitis are not demonstrated. C. Splenic flexure, polyp, biopsy: - Hyperplastic polyp. D. Sigmoid colon, polyp, biopsy: - Tubulovillous adenoma. E. Recto-sigmoid junction, polyp, biopsy: - Tubulovillous adenoma. MICROSCOPIC DESCRIPTION Slides are reviewed. GROSS DESCRIPTION A. Received in fixative is one container labeled with the patient's name and designated Terminal ileum biopsy. The specimen consists of two irregular fragments of light camilo soft tissue that measure 0.3 and 0.4 cm. The specimen is totally submitted in one cassette. B. Received in fixative is one container labeled with the patient's name and designated Random colon biopsy. The specimen consists of multiple irregular fragments of light camilo soft tissue that in aggregate measure <0.1 to 0.5 cm. Smaller fragments may not survive processing.The specimen is totally submitted in one cassette. C. Received in fixative is one container labeled with the patient's name and designated Splenic flexure polyp. The specimen consists of one irregular fragment of light camilo soft tissue that measures 0.3 cm. The specimen is totally submitted in one cassette. D. Received in fixative is one container labeled with the patient's name and designated Sigmoid polyp. The specimen consists of a 0.7 x 0.6 x 0.3 cm red and granular polypoid portion of tissue. The resection margin is inked black. The specimen is trisected and entirely submitted in 1 cassette.E. Received in fixative is one container labeled with the patient's name and designated Recto-sigmoid junction polyp. The specimen consists of three irregular fragments of light camilo soft tissue that measure 0.1 to 0.5 cm. The specimen is totally submitted in one cassette. NM 11/21/2024 CPT:71051s9
--- NOTE | 2024-11-21 09:28 | OP.COLON_ITS ---
Patient Name: Sarina Marsh Procedure Date: 11/21/2024 8:39 AM Date of : 1970 Age: 54 Procedure: Colonoscopy Indications: Abdominal pain in the left lower quadrant, Abdominal pain in the right lower quadrant, Clinically significant diarrhea of unexplained origin Providers: Jason Kirk DO Referring MD: Candy Ortiz Md Medicines: Monitored Anesthesia Care Patient Profile: This is a 54 year old female. Refer to note in patient chart for documentation of history and physical. Last Colonoscopy: none. The patient's first colonoscopy is today. Complications: No immediate complications. Procedure: Pre-Anesthesia Assessment: - Prior to the procedure, a History and Physical was performed, and patient medications and allergies were reviewed. The patient is competent. The risks and benefits of the procedure and the sedation options and risks were discussed with the patient. All questions were answered and informed consent was obtained. Patient identification and proposed procedure were verified by the physician in the pre-procedure area. Mental Status Examination: alert and oriented. Airway Examination: normal oropharyngeal airway and neck mobility. Respiratory Examination: clear to auscultation. CV Examination: normal. Prophylactic Antibiotics: The patient does not require prophylactic antibiotics. Prior Anticoagulants: The patient has taken no anticoagulant or antiplatelet agents except for NSAID medication. ASA Grade Assessment: II - A patient with mild systemic disease. After reviewing the risks and benefits, the patient was deemed in satisfactory condition to undergo the procedure. The anesthesia plan was to use monitored anesthesia care (MAC). Immediately prior to administration of medications, the patient was re-assessed for adequacy to receive sedatives. The heart rate, respiratory rate, oxygen saturations, blood pressure, adequacy of pulmonary ventilation, and response to care were monitored throughout the procedure. The physical status of the patient was re-assessed after the procedure. After I obtained informed consent, the scope was passed under direct vision. Throughout the procedure, the patient's blood pressure, pulse, and oxygen saturations were monitored continuously. The colonoscope was introduced through the anus and advanced to the terminal ileum. The colonoscopy was performed without difficulty. The patient tolerated the procedure well. The quality of the bowel preparation was adequate. The terminal ileum, ileocecal valve, appendiceal orifice, and rectum were photographed. Scope In: 8:53:47 AM Scope Withdrawal Time 0 hours 17 minutes 10 seconds Scope Out: 9:19:13 AM Total Procedure Duration Time 0 hours 25 minutes 26 seconds Findings: The perianal and digital rectal examinations were normal. Multiple small and large-mouthed diverticula were found in the recto-sigmoid colon, sigmoid colon and descending colon. A 10 mm polyp was found in the sigmoid colon. The polyp was sessile. The polyp was removed with a cold snare. Resection and retrieval were complete. Verification of patient identification for the specimen was done. Estimated blood loss was minimal. A 5 mm polyp was found in the recto-sigmoid colon. The polyp was sessile. The polyp was removed with a cold biopsy forceps. Resection and retrieval were complete. Verification of patient identification for the specimen was done. Estimated blood loss was minimal. An area of mildly congested mucosa was found in the recto-sigmoid colon, in the sigmoid colon, at the splenic flexure and at the hepatic flexure. Biopsies were taken with a cold forceps for histology. Verification of patient identification for the specimen was done. Estimated blood loss was minimal. The recto-sigmoid colon was moderately redundant. The terminal ileum appeared normal. Biopsies were taken with a cold forceps for histology. Verification of patient identification for the specimen was done. Estimated blood loss was minimal. Impression: - Diverticulosis in the recto-sigmoid colon, in the sigmoid colon and in the descending colon. - One 10 mm polyp in the sigmoid colon, removed with a cold snare. Resected and retrieved. - One 5 mm polyp at the recto-sigmoid colon, removed with a cold biopsy forceps. Resected and retrieved. - Congested mucosa in the recto-sigmoid colon, in the sigmoid colon, at the splenic flexure and at the hepatic flexure. Biopsied. - Redundant colon. - The examined portion of the ileum was normal. Biopsied. Recommendation: - Discharge patient to home. - Resume previous diet. - Continue present medications. - Await pathology results. - Repeat colonoscopy in 3 years for surveillance. Procedure Code(s): --- Professional --- 81112, Colonoscopy, flexible; with removal of tumor(s), polyp(s), or other lesion(s) by snare technique 01720, 59, Colonoscopy, flexible; with biopsy, single or multiple CPT copyright 2021 [employer]. All rights reserved. The codes documented in this report are preliminary and upon biometrics head review may be revised to meet current compliance requirements. Jason Kirk DO 11/21/2024 9:27:42 AM This report has been signed electronically. Number of Addenda: 0 Note Initiated On: 11/21/2024 8:39 AM
--- NOTE | 2024-11-21 09:28 | OP.PROVAT_ITS ---
11/21/2024 Candy Ortiz Md Re : Colonoscopy procedure for Sarina Marsh Dear Diana This procedure was performed on Thursday, November 21, 2024. My impressions and recommendations are as follows: Impressions : - Diverticulosis in the recto-sigmoid colon, in the sigmoid colon and in the descending colon. - One 10 mm polyp in the sigmoid colon, removed with a cold snare. Resected and retrieved. - One 5 mm polyp at the recto-sigmoid colon, removed with a cold biopsy forceps. Resected and retrieved. - Congested mucosa in the recto-sigmoid colon, in the sigmoid colon, at the splenic flexure and at the hepatic flexure. Biopsied. - Redundant colon. - The examined portion of the ileum was normal. Biopsied. Recommendations : - Discharge patient to home. - Resume previous diet. - Continue present medications. - Await pathology results. - Repeat colonoscopy in 3 years for surveillance. My findings are described in the full procedure note, which is enclosed. If I can be of further assistance, please feel free to contact me at . Sincerely, Jason Kirk DO 11/21/2024 9:27:42 AM This report has been signed electronically.
--- NOTE | 2024-11-21 09:31 | PCM.POST.ANE ---
Anesthesia: Postop Eval I Current Vital Signs Temperature: 97 F Pulse Rate: 82 Blood Pressure: 131/94 Respiratory Rate: 22 Pulse Ox: 95 Oxygen Delivery Method: Nasal Cannula Oxygen Flow Rate (L/min): 3 Assessment Airway patent: Yes Spontaneous unlabored respirations: Yes Mental status: Awake nausea: No Vomiting: No Anesthesia Complication: No Fluid Hydration Crystalloid volume administer (ml): 600 Total IV fluid infused: 600 Progress Note Anesthesia document: Postop Eval 1 completed: Yes
--- NOTE | 2024-11-21 14:46 | PCM.POSTANE2 ---
Anesthesia Postop Eval I Sum Postop Eval Completion status Anesthesia document: Postop Eval 1 completed: Yes Anesthesia Postop Eval I Summary Anesthesia Postop Eval I Summary: Anesthesia Postop Eval I: Assessment Summary Airway patent Yes 11/21/24 09:32 [email or web address] Spontaneous unlabored Yes 11/21/24 09:32 [email or web address] respirations Mental status Awake 11/21/24 09:32 [email or web address] nausea No 11/21/24 09:32 [email or web address] Vomiting No 11/21/24 09:32 [email or web address] Anesthesia Postop Eval I: Fluid Summary Crystalloid volume administer 600 11/21/24 09:32 [email or web address] (ml) Colloids volume administered ( ml) Blood Product volume administered (ml) Total IV fluid infused 600 11/21/24 09:32 [email or web address] Anesthesia Postop Eval I: Summary Notes Anesthesia Complication No 11/21/24 09:32 [email or web address] Anesthesia Complication Comment: Post-operative progress note Anesthesia: Postop Eval II Evaluation Mental status: Awake Pain Level: 0 nausea: No Vomiting: No
== END 2024-11-21 10:03 | disposition home or self-care (01) ==
LOC: EN 07:16 → AC 07:18
PROVIDERS: PCP Internal Medicine; Referring Provider Internal Medicine; Visit Provider Internal Medicine Gastroenterology
PROC: 0DJD8ZZ Inspection of Lower Intestinal Tract, Via Natural or Artificial Opening Endoscopic (ICD-10-PCS; CPT 45378; principal; 2024-11-21 08:25)
DX: K63.5 Polyp of colon (principal); F31.9 Bipolar disorder, unspecified; J44.9 Chronic obstructive pulmonary disease, unspecified; E11.9 Type 2 diabetes mellitus without complications; R10.31 Right lower quadrant pain; R19.7 Diarrhea, unspecified; R15.9 Full incontinence of feces; F17.210 Nicotine dependence, cigarettes, uncomplicated; G89.29 Other chronic pain; Z79.84 Long term (current) use of oral hypoglycemic drugs; Z86.711 Personal history of pulmonary embolism; I10 Essential (primary) hypertension; Q43.8 Other specified congenital malformations of intestine; K59.00 Constipation, unspecified; Z90.49 Acquired absence of other specified parts of digestive tract; Z99.89 Dependence on other enabling machines and devices; K58.0 Irritable bowel syndrome with diarrhea; D12.5 Benign neoplasm of sigmoid colon; D12.7 Benign neoplasm of rectosigmoid junction
CPT/HCPCS: 45380; 45385; 82962; 88305; 94640; J2405

== ENCOUNTER → 2024-11-27 | Outpatient (CLI) | payer MEDICARE, MEDICAID, SELFPAY ==
[2024-11-27 14:02] VITALS: PULSE 100; PULSE 102; PULSE 104; PULSE 82; PULSE 83; PULSE 85; PULSE 90; PULSE 99; O2SAT 86; O2SAT 90; O2SAT 91; O2SAT 92
--- NOTE | 2024-11-27 14:06 | CPS ---
PATIENT ARRIVED FOR TESTING ON ROOM AIR. SHE SAYS SHE HAS O2 ESTABLISHED AT HOME THROUGH [employer] ALREADY. RESTING SPO2 WAS 86% PRIOR TO TESTING, THEREFORE THE WALK TEST WAS BEGAN WITH PATIENT WEARING 2LPM. SHE REMAINED ON THIS FOR DURATION OF TESTING. SHE WAS COACHED ON PURSED LIP BREATHING THROUGHOUT TESTING TO REGAIN BREATHING CONTROL AND DECREASE ANXIETY DUE TO RR INCREASING RAPIDLY WHILE WALKING. SHE TOOK 3 REST BREAKS DURING TESTING. SHE WALKED 438FT DURING TESTING.
--- NOTE | 2024-12-06 13:10 | WT_ITS ---
PSN 6 Minute Walk Test 6 Minute Walk Test 6 Minute Walk Test: 6 Minute Walk Test PSN:6-Minute Walk Test Start: 11/27/24 14:02 Freq: Status: Active Protocol: [id number] Document 11/27/24 14:02 [facility] (Rec: 11/27/24 14:09 [facility] [id number]) 6 Minute Walk Test Date Performed 11/27/24 Time Performed 13:00 Height 5 ft 2 in Weight: 250 lb Weight in Pounds 250.[address]: Nettie Thurston Assistive device None used: Pre-test Oxygen Delivery Room Air Method Pulse Ox (%) 86 Pulse Rate (60-100 82 beats/min) Dyspnea Kely Scale ( 3 0-10) Exertion Kely Scale 6 (6-20) Reported Symptoms Increased Work of Breathing 1st minute Oxygen Flow Rate (L/ 2 min) (L/min) Oxygen Delivery Nasal Cannula Method Pulse Ox (%) 92 Pulse Rate (60-100 85 beats/min) Dyspnea Kely Scale ( 4 0-10) Number of Rests 1 Taken Reported Symptoms Increased Work of Breathing,Dizziness 2nd minute Oxygen Flow Rate (L/ 2 min) (L/min) Oxygen Delivery Nasal Cannula Method Pulse Ox (%) 90 Pulse Rate (60-100 90 beats/min) Dyspnea Kely Scale ( 5 0-10) Number of Rests 0 Taken Reported Symptoms Increased Work of Breathing 3rd minute Oxygen Flow Rate (L/ 2 min) (L/min) Oxygen Delivery Nasal Cannula Method Pulse Ox (%) 91 Pulse Rate (60-100 99 beats/min) Dyspnea Kely Scale ( 6 0-10) Number of Rests 1 Taken Reported Symptoms Increased Work of Breathing 4th minute Oxygen Flow Rate (L/ 2 min) (L/min) Oxygen Delivery Nasal Cannula Method Pulse Ox (%) 92 Pulse Rate (60-100 100 beats/min) Dyspnea Kely Scale ( 6 0-10) Number of Rests 1 Taken Reported Symptoms Increased Work of Breathing,Dizziness 5th minute Oxygen Flow Rate (L/ 2 min) (L/min) Oxygen Delivery Nasal Cannula Method Pulse Ox (%) 90 Pulse Rate (60-100 104 H beats/min) Dyspnea Kely Scale ( 6 0-10) Number of Rests 0 Taken Reported Symptoms Increased Work of Breathing 6th minute Oxygen Flow Rate (L/ 2 min) (L/min) Oxygen Delivery Nasal Cannula Method Pulse Ox (%) 91 Pulse Rate (60-100 102 H beats/min) Dyspnea Kely Scale ( 6 0-10) Number of Rests 0 Taken Reported Symptoms Increased Work of Breathing Post-test Oxygen Delivery Room Air Method Pulse Ox (%) 91 Pulse Rate (60-100 83 beats/min) Dyspnea Kely Scale ( 3 0-10) Exertion Kely Scale 6 (6-20) Reported Symptoms Increased Work of Breathing Full Laps Walked 7 Partial Lap, Number 25 of Tiles Walked Total Distance 438 Walked (ft) 11/27/24 14:06 Cardiopulmonary Services by Natasha Melvin PATIENT ARRIVED FOR TESTING ON ROOM AIR. SHE SAYS SHE HAS O2 ESTABLISHED AT HOME THROUGH [employer] ALREADY. RESTING SPO2 WAS 86% PRIOR TO TESTING, THEREFORE THE WALK TEST WAS BEGAN WITH PATIENT WEARING 2LPM. SHE REMAINED ON THIS FOR DURATION OF TESTING. SHE WAS COACHED ON PURSED LIP BREATHING THROUGHOUT TESTING TO REGAIN BREATHING CONTROL AND DECREASE ANXIETY DUE TO RR INCREASING RAPIDLY WHILE WALKING. SHE TOOK 3 REST BREAKS DURING TESTING. SHE WALKED 438FT DURING TESTING. Initialized on 11/27/24 14:06 - END OF NOTE Interpretation Interpretation: The patient ambulated 438 feet over the course of 6 minutes beginning on room air without assistive devices. Pretesting oxygen saturation was noted to be 86% on room air. 2 L/min of supplemental oxygen was subsequently applied to begin testing. With ambulation, the ernie oxygen saturation was 90%. Recommendations Recommendations: 2 L/min of supplemental oxygen should be utilized at rest and with exertion.
== END | disposition home or self-care (01) ==
LOC: PSN 13:06
PROVIDERS: PCP Internal Medicine; Referring Provider Nurse Practitioner Family; Visit Provider Nurse Practitioner Family
DX: R91.8 Other nonspecific abnormal finding of lung field (principal); J44.9 Chronic obstructive pulmonary disease, unspecified
CPT/HCPCS: 94618

== ENCOUNTER → 2024-12-18 | Outpatient (CLI) | payer MEDICARE, MEDICAID, SELFPAY ==
--- NOTE | 2024-12-18 10:00 | PET_ITS ---
PROCEDURE: 13.94 12/18/2024 REASON FOR EXAM: 54 y/o F with RLL NODULE TECHNIQUE: Procedure Code: PETPTCTINIT Modality: PT Procedure: PET/CT TUMOR BASE -THIGH INIT Following the intravenous administration of radionucleotide, image acquisition on a dedicated PET/CT unit was performed at one hour post injection. A preliminary CT study encompassing the Skull base, neck, chest, abdomen, pelvis, and proximal thighs was performed for purposes of attenuation correction and anatomic localization. The proximal thighs were also included. The patient's blood glucose level was 159 mg/dL (allowable range: 50-180 mg/dL). RADIOPHARMACEUTICAL: 13.94 mCi 18F-FDG (Fluorodeoxyglucose F18) IV was injected into he patient. RADIATION DOSE SUMMARY: Effective Dose: Approximately 7 mSv for a standard whole-body PET scan Organ Doses: Varies by organ, with higher doses typically to the bladder, liver, and brain COMPARISON: COMPARISON FROM CT, PET OR OTHER PERTINENT EXAMS: . FINDINGS: Physiologic uptake: There may be expected metabolic uptake within the brain, tongue and floor of the mouth and larynx/vocal cords, heart, rogerio (many normal individuals have hilar uptake in less than 3 nodes with mildly avid hilar nodes less than 2.7 SUV), liver and spleen, system, and GI tract and symmetric muscle uptake. FDG AVID AND NON-AVID LESIONS. Reported avid SUV values (g/mL*) are maximum SUV. NECK: There are no significant neck abnormalities. CHEST: Chest wall- There are no significant chest wall abnormalities. Axilla- There are no significant axillary abnormalities. Lung parenchyma- There are no significant lung parenchyma abnormalities. Specifically, there is no abnormal PET activity to correspond to the lung nodule in the mid lateral right lung. Mediastinum- There are no significant hilar or mediastinal adenopathy. Pleura- There are no significant pleural abnormalities. ABDOMEN: Stomach- No significant abnormalities. Liver- No significant abnormalities. Spleen- No significant abnormalities. Pancrease- No significant abnormalities. Kidneys- No significant abnormalities. Bowel- Normal bowel activity. Spine- No significant abnormalities. PELVIS: Bowel- Normal physiologic bowel activity is identified. Masses- There are no pelvic masses. LOWER EXTREMITIES: Bones- With the use of bone window settings, there are no osteolytic or osteoblastic lesions. There are no FDG avid lesions within the visualized portion of the axial skeleton. PET/PET/CT Tumor Base -Thigh Init IMPRESSION: Negative PET study, no suspicious increased PET activity to suspect primary conchita plastic process or metastasis. Specifically, there is no abnormal increased activity within either lung field Reading Location: [id number]
== END | disposition home or self-care (01) ==
LOC: ONC 09:28
PROVIDERS: PCP Internal Medicine; Referring Provider Nurse Practitioner Family; Visit Provider Nurse Practitioner Family
DX: R91.8 Other nonspecific abnormal finding of lung field (principal)
CPT/HCPCS: 78815; A9552